=== PATIENT | female | born 1950 | race Caucasian/White ===

== ENCOUNTER → 2018-09-09 13:35 | Outpatient (CLI) | payer MEDICARE, OTHER, SELFPAY ==
--- NOTE | 2018-09-09 13:45 | RAD_ITS ---
STUDY: X-RAY - CERVICAL SPINE REASON FOR EXAM: Female, 68 years old. Neck pain and headache TECHNIQUE: 3 view(s) of the cervical spine were obtained. COMPARISON: None FINDINGS: Normal anterior atlantoaxial articulation. Normal odontoid process. There is straightening of the normal cervical lordosis. Normal vertebral bodies and endplates. There is multi-level degenerative disc disease with multilevel disc space narrowing. The soft tissue structures are unremarkable. RAD/Cerv Spine 2 or 3 Views IMPRESSION: Multilevel degenerative changes, no acute findings Electronically Signed: Higinio Prince MD at 11:57 EST , Service support ,
== END ==
PROVIDERS: Family Provider Internal Medicine; PCP Internal Medicine; Referring Provider Internal Medicine; Visit Provider Internal Medicine
DX: M54.2 Cervicalgia (principal)
CPT/HCPCS: 72040

== ENCOUNTER → 2018-09-16 11:00 | Outpatient (CLI) | payer MEDICARE, OTHER, SELFPAY ==
--- NOTE | 2018-09-16 11:10 | MRI_ITS ---
STUDY: MRA OF THE HEAD WITHOUT CONTRAST REASON FOR EXAM: Female, 68 years old. Worsening headaches for 3 weeks TECHNIQUE: 3-D [id number] (TOF) imaging was performed with MIPs. The study was performed unenhanced. COMPARISON: None. FINDINGS: Normal bilateral petrous carotid arteries. Normal right cavernous carotid artery with a normal supraclinoid bifurcation. Normal left cavernous carotid artery with a normal supraclinoid bifurcation. Normal right A1 segments of the anterior cerebral artery. Normal left A1 segments of the anterior cerebral artery. Normal intact anterior communicating artery (ACOM). Normal bilateral A2 segments of the anterior cerebral arteries. Normal right M1 and M2 segments of the middle cerebral arteries, with a normal M1 bifurcation. Normal left M1 and M2 segments of the middle cerebral arteries, with a normal M1 bifurcation. Normal right posterior communicating artery (PCOM). Normal left posterior communicating artery (PCOM). Normal bilateral vertebral arteries. Normal basilar artery with a normal basilar bifurcation. The visualized bilateral superior cerebellar (SCA) arteries are normal. Normal bilateral P1, P2 and visualized P3 segments of the posterior cerebral arteries. There is no demonstrated aneurysm of the [place] of [place]. There is no major vessel occlusion or hemodynamically significant stenosis. There is no demonstrated abnormality of the visualized brain. MRI/MRA Head ONLY without Contrast IMPRESSION: Normal MRA of the head Electronically Signed: Dennis Gardner MD at 12:51 EST Tel , Service support ,
--- NOTE | 2018-09-16 11:10 | MRI_ITS ---
STUDY: MRI BRAIN WITHOUT CONTRAST REASON FOR EXAM: Female, 68 years old. Worsening headaches for 3 weeks TECHNIQUE: Standardized multiplanar fat and water weighted pulse sequences were obtained. COMPARISON: None. FINDINGS: Normal size of the ventricles and extra-axial spaces for the patient's age. There are a limited number of small white matter hyperintensities, distributed throughout the deep white matter tracts of the cerebral hemispheres, consistent with mild chronic white matter ischemic changes. Normal bilateral basal ganglia. Normal thalami. There is no extra-axial fluid accumulation. Normal flow voids within the major intracranial circulation suggesting patency by spin echo criteria. Normal sella turcica, pituitary gland, infundibular stalk, optic chiasm and hypothalamus. Normal tectal plate and pineal gland. Normal midbrain, michael and medulla. Normal cerebellum. Normal basal cisterns. Normal bilateral temporal bones. Normal bilateral internal auditory canals. There are bilateral ocular lens implants with otherwise normal intraorbital contents. Normal visualized paranasal sinuses. Normal calvarium and skull base. Normal visualized soft tissue structures. Normal visualized upper cervical spine. MRI/Brain without Contrast IMPRESSION: No evidence of acute infarct or hemorrhage. Mild microangiopathic white matter disease. Electronically Signed: Dennis Gardner MD at 12:48 EST Tel , Service support ,
--- OUTSIDE RECORDS SUMMARY | 2018-11-21 02:13 | XMS RPT_ITS | Continuity of Care Document ---
:1950 Author Organization [facility] Address [address] [place] [address] Phone Care Team Providers Name Role Phone Windy Mayorga DO Unavailable Dr. John Paul Marion Unavailable CLAYTON Hough Unavailable Unavailable THALIA Pereira Unavailable Unavailable Jennifer Coronado Unavailable Unavailable Christi Hernández Unavailable Unavailable Melonie Kline Unavailable Unavailable Gravius, Leida Unavailable Unavailable Chucky GROVE, Liat Unavailable Unavailable Unavailable Problems Name Dates Details Abnormal chest x-ray (R93.89, 793.2) Status: Active Acquired hypothyroidism (E03.9, 244.9) Status: Active ACUTE PHARYNGITIS (462.) (J02.9, 462) Status: Active Annual Medicare Phyiscal WITHOUT abnormal findings (Renamed from Encounter for general adult medical examination without abnormal findings) (Z00.00, V70.9) Status: Active Anxiety (F41.9, 300.00) Comments: stable Status: Active BMI 30.0-30.9,adult (Z68.30, V85.30) Status: Active BMI 30.0-30.9,adult (Z68.30, V85.30) Status: Active BMI 31.0-31.9,adult (Z68.31, V85.31) Status: Active Breast cancer screening (Z12.39, V76.10) Status: Active BRONCHITIS, NOT SPECIFIED ACUTE OR CHRONIC (490.) (J40, 490) Status: Active Cervical pain (neck) (M54.2, 723.1) Status: Active Chronic pain of both knees (M25.561, 719.46) Status: Active Conjunctivitis (H10.9, 372.30) Status: Active Cough (R05, 786.2) Comments: sinus drainage use mucinex Status: Active Cough (R05, 786.2) 26-May-2011 Status: Active Deliveries (Parity) Comments: 3 Status: Active Diarrhea (R19.7, 787.91) Comments: BRAT diet Status: Active Dysuria (R30.0, 788.1) Status: Active Encounter for annual general medical examination with abnormal findings in adult (Z00.01, V70.0) Status: Active Encounter for Medicare annual wellness exam (Z00.00, V70.0) Status: Active Encounter for Medicare annual wellness exam (Z00.00, V70.0) Status: Active Encounter for screening for malignant neoplasm of cervix (Z12.4, V76.2) Status: Active Encounter for screening for malignant neoplasm of colon (Renamed from Special screening for malignant neoplasms, colon) (Z12.11, V76.51) Comments: last scope 2012ordered cologard 2016 Status: Active Encounter for screening mammogram for breast cancer (Renamed from Encounter for screening mammogram for malignant neoplasm of breast) (Z12.31, V76.12) Status: Active Essential hypertension (I10, 401.9) Status: Active Flu-like symptoms (R68.89, 780.99) Status: Active Hallux valgus, acquired (735.0) Status: Active Hammer toe of second toe of left foot (M20.42, 735.4) Status: Active Headache, worsening (R51, 784.0) Comments: occipital area Status: Active History of dysuria (Z87.898, V13.00) Status: Active History of sarcoidosis (Z86.2, V12.29) Comments: sees david once a yr -- has residual minor cough Status: Active History of UTI (Z87.440, V13.02) Comments: i give her rx to hold onto for travel -- she has h/o of getting them assoc with travel Status: Active Hypotension (I95.9, 458.9) Comments: will evaluate with lower dose atenolol and pt to bring BP pulse [facility] dropped BP and felt dizzi found to have low BP with wellness trainer, did not eat Status: Active Knee pain (M25.569, 719.46) Comments: R knee, does not want steroid, consider return to [place] Status: Active Muscle spasm (M62.838, 728.85) Status: Active Need for prophylactic vaccination and inoculation against influenza (Z23, V04.81) Status: Active Nonsmoker (Z78.9, V49.89) Status: Active Osteoarthrosis, not specified whether generalized/localized, lower leg (M17.9, 715.96) Comments: started tumeric and elev legs slightly in bed at nite and made a big difference Status: Active Osteopenia of the elderly (M85.80, 733.90) Status: Active Other and unspecified hyperlipidemia (E78.5, 272.4) Status: Active Other intervertebral disc degeneration, lumbar region (M51.36, 722.52) Comments: chronic stable-continue present regimen Status: Active Postmenopausal (Renamed from Postmenopausal status) (Z78.0, V49.81) Status: Active postmenopausal without estogen Status: Active Pregnancies () Comments: 3 Status: Active SARCOIDOSIS (135.) (D86.9, 135) Comments: she has followup with [facility] Status: Active screening Status: Active Sinusitis, acute (J01.90, 461.9) Status: Active Unspecified Diagnosis Status: Active URI (upper respiratory infection) (J06.9, 465.9) Status: Active URINARY TRACT INFECTION, SITE NOT SPECIFIED (N39.0, 599.0) Status: Active UTI (urinary tract infection) (N39.0, 599.0) Status: Active UTI (urinary tract infection), bacterial (N39.0, 599.0) Status: Active Vitamin D deficiency, unspecified (E55.9, 268.9) Status: Active Well woman exam (Z00.00, V70.0) Status: Active Wheezing (R06.2, 786.07) Status: Active Medications Name Dates Details Advil 200 MG Oral Capsule 1 (one) Capsule Capsule q6hrs for 0 days Quantity: 30 {Capsule} Refills: 0 Ordered:09-Sep-2018 Renetta Hough LPN Start : 17-Aug-2018 Active Atenolol 25 MG Oral Tablet 1/2 (one half) Tablet QD for 90 days Quantity: 90 {Tablet} Refills: 3 Ordered:22-Mar-2018 Sharyn Mayorga DO, DO, Kathleen Start : 22-Mar-2018 Active Comments:d/c the metoprolol and fill anteolol instead Caltrate 600 + D 600-200 MG-IU Oral Tablet 2 qd (600-125 MG-IU) Active Ibandronate Sodium 150 MG Oral Tablet 1 (one) Tablet Tablet qmonth for 0 days Quantity: 3 {Tablet} Refills: 3 Ordered:28-Dec-2017 Christi Hernández Start : 28-Dec-2017 Active Ibandronate Sodium 150 MG Oral Tablet 1 (one) Tablet Tablet qmonth for 0 days Quantity: 3 {Tablet} Refills: 3 Ordered:28-Dec-2017 Christi Hernández Start : 28-Dec-2017 Active Macrobid 100 MG Oral Capsule 1 Capsule BID for 0 days Quantity: 20 {Capsule} Refills: 0 Ordered:14-Jul-2018 Sharyn Mayorga DO, DO, Kathleen Start : 14-Jul-2018 Active Multi-Day Oral Tablet 1 qd Active PreserVision AREDS 2 Oral Capsule 1 qd Active Synthroid 25 MCG Oral Tablet 1 (one) Tablet daily except 2tabs on thursday for 90 days Quantity: 102 {Tablet} Refills: 3 Ordered:28-Dec-2017 Sharyn Mayorga DO, DO, Kathleen Start : 28-Dec-2017 Active TiZANidine HCl 4 MG Oral Tablet 1 (one) Tablet bid for 0 days Quantity: 20 {Tablet} Refills: 0 Ordered:09-Sep-2018 Sharyn Mayorga DO, DO, Kathleen Start : 09-Sep-2018 Active Vitamin C 100 MG Oral Tablet 2 qd (100 MG) Active VITAMIN D3, 1000UNIT (Oral Capsule) 2 (two) Capsule qd for 0 days Quantity: 60 {Capsule} Refills: 0 Ordered:17-Oct-2015 Raya Viera DO Start : 17-Oct-2015 Active ALIGN, 4MG (Oral Capsule) 1 cap qd (4 MG) Inactive Kristina Allergy 180 MG Oral Tablet 1 (one) Tablet Tablet daily for 90 days Quantity: 90 {Tablet} Refills: 3 Ordered:29-Jun-2017 Renetta Hough LPN Start : 19-Jan-2016 End : 29-Jun-2017 Inactive KRISTINA-D 12 HOUR, 60-120MG (Oral Tablet Extended Release 12 Hour) 1 Tablet ER 12HR every 12 hrs for 0 days Quantity: 20 {Tablet_ER_12HR} Refills: 0 Ordered:05-Jun-2009 Jennifer Coronado Start : 05-Jun-2009 End : 25-Jun-2009 Inactive Comments:take one in the morning KRISTINA-D 12 HOUR, 60-120MG (Oral Tablet Extended Release 12 Hour) 1 Tablet ER 12HR q12hrs for 0 days Quantity: 30 {Tablet_ER_12HR} Refills: 0 Ordered:17-Feb-2011 Jennifer Coronado Start : 31-Jul-2010 End : 17-Feb-2011 Inactive BACTRIM DS, 800-160MG (Oral Tablet) 1 (one) Tablet bid for 10 days Quantity: 20 {Tablet} Refills: 0 Ordered:04-Jun-2015 Samira Mcghee Start : 04-Jun-2015 End : 14-Jun-2015 Inactive Biaxin 500 MG Oral Tablet 2 (two) Tablet Tablet daily for 10 days Quantity: 20 {Tablet} Refills: 0 Ordered:10-Aug-2018 Christi Hernández Start : 10-Aug-2018 End : 20-Aug-2018 Inactive BIAXIN XL PAC, 500MG (Oral Tablet Extended Release 24 Hour) 2 (two) Tablet ER 24HR daily for 10 days Quantity: 20 {Tablet_ER_24HR} Refills: 0 Ordered:22-Apr-2013 Viky Robertson MD Start : 22-Apr-2013 End : 02-May-2013 Inactive Comments:voidafter 30 days Bleph-10 10 % Ophthalmic Solution 1-2 Metric Drop q2-3h for 7 days Quantity: 1 {Bottle} Refills: 0 Ordered:30-Apr-2018 Donna Locke CNP Start : 30-Apr-2018 End : 07-May-2018 Inactive Cheratussin AC 100-10 MG/5ML Oral Syrup 1-2 Teaspoon(s) qhs prn for 0 days Quantity: 6 {Ounce} Refills: 0 Ordered:07-May-2016 Samira Mcghee Start : 26-Mar-2016 End : 07-May-2016 Inactive Cipro 500 MG Oral Tablet 1 (one) Tablet bid for 0 days Quantity: 20 {Tablet} Refills: 0 Ordered:12-May-2017 THALIA Pereira Start : 08-Jan-2017 End : 12-May-2017 Inactive Cyclobenzaprine HCl 10 MG Oral Tablet 1 (one) Tablet 1 tab qd prn for 0 days Quantity: 10 {Tablet} Refills: 0 Ordered:08-Jan-2017 THALIA Peerira Start : 22-Aug-2016 End : 08-Jan-2017 Inactive DEBROX, 6.5% (Otic Solution) 1 for 0 days Refills: 0 Ordered:07-Jun-2009 Jennifer Coronado Start : 07-Jun-2009 End : 25-Jun-2009 Inactive DURICEF, 1GM (Oral Tablet) 1 1/2 (one and a half) Tablet bid for 7 days Quantity: 14 {Tablet} Refills: 0 Ordered:13-Nov-2008 Yandytaylor MAINEDonna Start : 13-Nov-2008 End : 20-Nov-2008 Inactive LEVAQUIN, 500MG (Oral Tablet) 1 Tablet daily for 10 days Quantity: 10 {Tablet} Refills: 0 Ordered:08-Mar-2015 Sharyn Maoyrga DO, DO, Kathleen Start : 08-Mar-2015 End : 18-Mar-2015 Inactive Medrol 4 MG Oral Tablet Therapy Pack 1 (one) Tab Ther Pack uad for 0 days Quantity: 1 {Package} Refills: 0 Ordered:08-Jan-2017 THALIA Pereira Start : 09-Jun-2016 End : 08-Jan-2017 Inactive Metoprolol Succinate ER 25 MG Oral Tablet Extended Release 24 Hour 1/2 Tablet daily for 0 days Quantity: 30 {Tablet} Refills: 3 Ordered:18-Mar-2018 Latricia Leblanc LPN Start : 08-Mar-2018 End : 18-Mar-2018 Inactive Metoprolol Succinate ER 25 MG Oral Tablet Extended Release 24 Hour 1/2 Tablet daily for 0 days Quantity: 90 {Tablet} Refills: 0 Ordered:18-Mar-2018 Latricia Leblanc LPN Start : 08-Mar-2018 End : 18-Mar-2018 Inactive Montelukast Sodium 10 MG Oral Tablet 1 (one) Tablet qhs for 90 days Quantity: 90 {Tablet} Refills: 1 Ordered:29-Jun-2017 Renetta Hough LPN Start : 26-Mar-2016 End : 29-Jun-2017 Inactive NASACORT ALLERGY 24HR, 55MCG/ACT (Nasal Aerosol) 2 (two) Puff Puff daily for 0 days Quantity: 1 {Bottle} Refills: 0 Ordered:17-Oct-2015 Samira Mcghee Start : 09-Apr-2015 End : 17-Oct-2015 Inactive NASACORT AQ, 55MCG/ACT (Nasal Aerosol Solution) 1 Aerosol Soln 2puffs once daily for 0 days Quantity: 1 {Aerosol_Soln} Refills: 0 Ordered:24-Dec-2009 Tuyet Camejo Start : 13-Aug-2009 Inactive NASONEX, 50MCG/ACT (Nasal Suspension) 2 (two) Suspension qd for 0 days Quantity: 1 {Suspension} Refills: 3 Ordered:25-Dec-2008 Tuyet Camejo Start : 25-Dec-2008 End : 05-Jun-2009 Inactive NEXIUM, 40MG (Oral Capsule Delayed Release) 1 (one) Capsule DR qd for 0 days Refills: 0 Ordered:15-Jul-2010 Antoinette Ashby LPN Start : 25-Jun-2009 End : 15-Jul-2010 Inactive Nitrofurantoin Monohyd Macro 100 MG Oral Capsule 1 (one) Capsule bid for 0 days Quantity: 20 {Capsule} Refills: 0 Ordered:28-Dec-2017 Renetta Hough LPN Start : 17-Sep-2017 End : 28-Dec-2017 Inactive PREDNISONE, 20MG (Oral Tablet) 1 (one) Tablet bid for 2 days then qd for 4 days for 0 days Quantity: 8 {Tablet} Refills: 0 Ordered:02-Nov-2013 Renetta Hough LPN Start : 26-Oct-2013 End : 02-Nov-2013 Inactive Comments:take with food ProAir HFA 108 (90 Base) MCG/ACT Inhalation Aerosol Solution 2 (two) Puff tid for 0 days Quantity: 1 {Inhaler} Refills: 2 Ordered:07-May-2016 Samira Mcghee Start : 26-Mar-2016 End : 07-May-2016 Inactive PROVENTIL HFA, 108 (90 Base)MCG/ACT (Inhalation Aerosol Solution) 2 puffs Aerosol Soln qid for 0 days Quantity: 1 {Aerosol_Soln} Refills: 1 Ordered:17-Feb-2011 Jennifer Coronado Start : 14-Aug-2010 End : 17-Feb-2011 Inactive Sertraline HCl 25 MG Oral Tablet 1 (one) Tablet daily for 90 days Quantity: 90 {Tablet} Refills: 1 Ordered:29-Jun-2017 Renetta Hough LPN Start : 31-Dec-2015 End : 29-Jun-2017 Inactive Tamiflu 75 MG Oral Capsule 1 (one) Capsule Capsule bid for 5 days Quantity: 10 {Capsule} Refills: 0 Ordered:14-Sep-2017 Renetta Hough LPN Start : 14-Sep-2017 End : 19-Sep-2017 Inactive Zithromax Z-Eyad 250 MG Oral Tablet tad Tablet TAD for 0 days Quantity: 1 {Package} Refills: 0 Ordered:07-May-2016 Samira Mcghee Start : 26-Mar-2016 End : 07-May-2016 Inactive ZOLOFT, 25MG (Oral Tablet) 1 Tablet qd for 0 days Quantity: 90 {Tablet} Refills: 3 Ordered:15-Jul-2010 Antoinette Ashby LPN Start : 25-Jun-2009 End : 15-Jul-2010 Inactive Comments:generic ALEVE, 220MG (Oral Tablet) 2 (two) Tablet Twice daily for 0 days Refills: 0 Ordered:20-Jun-2008 Tamanna Acharya Start : 20-Jun-2008 End : 13-Nov-2008 Discontinued ALIGN, 4MG (Oral Capsule) 1 (one) Capsule Capsule daily for 0 days Quantity: 30 {Capsule} Refills: 0 Ordered:31-Dec-2015 Jennifer Coronado Start : 12-Nov-2015 End : 31-Dec-2015 Discontinued KRISTINA ALLERGY, 60MG (Oral Tablet) 1 (one) Tablet Tablet bid for 0 days Quantity: 30 {QS} Refills: 3 Ordered:12-Nov-2015 Lucretia Murray LPN Start : 09-Apr-2015 End : 12-Nov-2015 Discontinued ATIVAN, 0.5MG (Oral Tablet) 1 (one) Tablet Daily prn for 0 days Quantity: 30 {Tablet} Refills: 0 Ordered:04-Jun-2007 Tamanna Acharya Start : 04-Jun-2007 End : 13-Nov-2008 Discontinued BIAXIN XL, 500MG (Oral Tablet Extended Release 24 Hour) 2 (two) Tablet ER 24HR qd for 0 days Quantity: 20 {Tablet_ER_24HR} Refills: 0 Ordered:09-Apr-2015 Lucretia Murray LPN Start : 08-Mar-2015 End : 09-Apr-2015 Discontinued Ciprofloxacin HCl 0.3 % Ophthalmic Solution 1 (one) Solution qid for 0 days Quantity: 1 {Bottle} Refills: 0 Ordered:26-Mar-2016 Lucretia Murray LPN Start : 18-Feb-2016 End : 26-Mar-2016 Discontinued CULTURELLE, 10B CELL (Oral Capsule) 1 Capsule bid for 0 days Quantity: 60 {Capsule} Refills: 0 Ordered:05-Apr-2012 Jennifer Coronado Start : 05-Apr-2012 End : 05-Apr-2012 Discontinued PEPCID, 20MG (Oral Tablet) 1 Tablet daily for 0 days Quantity: 30 {Tablet} Refills: 0 Ordered:05-Apr-2012 Jennifer Coronado Start : 05-Apr-2012 End : 05-Apr-2012 Discontinued SERTRALINE HCL, 25MG (Oral Tablet) 1 qd for 0 days Refills: 0 Ordered:27-Sep-2007 Jennifer Coronado End : 27-Sep-2007 Discontinued Allergies and Adverse Reactions Name Dates Details Levaquin *FLUOROQUINOLONES* (Allergy) Status: Active Comments: tendonitis Penicillins (Allergy) Status: Active Past Medical History Name Dates Details Abdominal pain, acute, right upper quadrant (R10.11, 789.01) Comments: improve with gas x and pepcid, dilated common bile duct check Hida Status: Inactive as of 09-Sep-2012 Abnormal mammogram (R92.8, 793.80) Status: Inactive as of 14-Jul-2018 Acute cystitis without hematuria (N30.00, 595.0) Status: Inactive as of 14-Jul-2018 Acute sinusitis (J01.90, 461.9) Status: Inactive as of 24-Dec-2009 Allergic Rhinitis (J30.9, 477.9) Comments: chronic stable-continue present regimen Status: Inactive as of 14-Jul-2018 Allergic rhinitis due to other allergen (J30.89, 477.8) Comments: try antihistamine /singulair if not improved 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 Status: Inactive as of 14-Jul-2018 Anemia, unspecified (D64.9, 285.9) Status: Resolved as of 17-Apr-2010 BMI 29.0-29.9,adult (Z68.29, V85.25) Status: Inactive as of 14-Jul-2018 Body mass index 32.0-32.9, adult (Z68.32, V85.32) Status: Inactive as of 14-Jul-2018 burning tongue sx- gave samples nexium - if not better- she is seeing scottie- ask his opinion Status: Resolved as of 17-Apr-2010 Cellulitis (L03.90, 682.9) Status: Resolved as of 28-Jan-2013 Cerumen impaction (H61.20, 380.4) Status: Inactive as of 24-Dec-2009 Change in nail appearance (R29.898, 729.89) Comments: etilogy>?-- recommend seeking derm Status: Inactive as of 14-Jul-2018 Coccyalgia (M53.3, 724.79) Status: Inactive as of 07-May-2016 Cough (R05, 786.2) Status: Inactive as of 07-May-2016 dilated common bile duct Status: Inactive as of 22-Apr-2013 Diverticulitis of colon (without mention of hemorrhage) (562.11) Status: Inactive as of 22-Apr-2013 Epigastric pain (R10.13, 789.06) Status: Inactive as of 14-Feb-2009 Erythema nodosum (L52, 695.2) Status: Resolved as of 27-Oct-2011 Eustachian tube dysfunction (H69.80, 381.81) Status: Inactive as of 24-Dec-2009 Eye pain (H57.10, 379.91) Status: Inactive as of 07-May-2016 Fatigue (R53.83, 780.79) Status: Resolved as of 28-Jan-2013 Fecal occult blood test positive (R19.5, 792.1) Status: Inactive as of 14-Jul-2018 Flu-like symptoms (R68.89, 780.99) Status: Resolved as of 28-Dec-2017 Hair loss (L65.9, 704.00) Status: Inactive as of 14-Jul-2018 Hearing loss, unspecified laterality (389.9) Status: Inactive as of 24-Dec-2009 Hematuria (R31.9, 599.70) Status: Inactive as of 14-Jul-2018 Hypercholesteremia (E78.00, 272.0) Status: Resolved as of 28-Dec-2017 Hyponatremia (E87.1, 276.1) Status: Resolved as of 25-Jun-2009 meniscal tear and chondromalacia patella Status: Inactive as of 14-Feb-2009 minor renal insuff- she needs to push more fluids- get followup bmp in 8-12 weeks Status: Inactive as of 14-Feb-2009 Need for prophylactic vaccination and inoculation against influenza (Z23, V04.81) Status: Inactive as of 14-Feb-2009 Neoplasm of uncertain behavior of skin (D48.5, 238.2) Comments: Ivan hominus Status: Inactive as of 14-Feb-2009 Pain in unspecified hip (M25.559, 719.45) Status: Inactive as of 09-Sep-2012 Palpitations (R00.2, 785.1) Comments: chronic stable-continue present regimen Status: Inactive as of 24-Dec-2009 PANCREATITIS, NOS (577.0) Comments: resolved Status: Inactive as of 20-Feb-2009 postmenopausal without estrogen Status: Inactive as of 22-Apr-2013 Pre-operative examination (Z01.818, V72.84) Status: Inactive as of 17-Apr-2010 Rash (R21, 782.1) Status: Resolved as of 28-Jan-2013 recurrent UTI Status: Inactive as of 22-Apr-2013 Sciatica without lumbago, left (M54.32, 724.3) Comments: talk about sitting in car how to raise u0, back extension exercise, hamstring stretches. medrol dose eyad then go to advil tid. will be traveling. if not better wityh snservative things then send PT Status: Inactive as of 14-Jul-2018 screen Status: Inactive as of 24-Dec-2009 screening Status: Inactive as of 11-Apr-2011 screening Status: Inactive as of 22-Apr-2013 Sebaceous Cyst (L72.3, 706.2) Status: Resolved as of 28-Jan-2013 Shoulder pain (M25.519, 719.41) Status: Inactive as of 22-Apr-2013 Thoracic or lumbosacral neuritis or radiculitis, unspecified (724.4) Comments: minor - give herextension exercises to do Status: Inactive as of 24-Dec-2009 thumb pain Status: Resolved as of 22-May-2008 Unspecified Diagnosis Status: Inactive as of 27-Oct-2011 Urgency of urination (R39.15, 788.63) Status: Inactive as of 23-Feb-2017 UTI (599.0) Comments: Recurrent Status: Resolved UTI symptoms (R39.9, 788.99) Status: Inactive as of 29-Jun-2017 Visit for suture removal (Z48.02, V58.32) Status: Resolved as of 28-Jan-2013 Wheezing (R06.2, 786.07) Status: Resolved as of 17-Feb-2011 Procedures Procedure Dates Details Arthroscopy of Knee Completed Comments: rt knee 11-12-11 Date Value Details 09-Sep-2018 Cerv Spine 2 or 3 Views Result: Comments: See Note; NOTES: [facility] Imaging Services [address] [place] [id number] Cerv Spine 2 or 3 Views MR#: [id number] Acct: [id number] Name: JULIET SHORT Rep #: [id number] : 1950 F 68 From: Donnie Prince MD PCP: Windy Mayorga DO Status: REG CLI Study: Cerv Spine 2 or 3 Views Date of Exam: 09/09/18 Exam# [id number] Ordering Dr: Windy Mayorga DO STUDY: X-R AY - CERVICAL SPINE REASON FOR EXAM: Female, 68 years old. Neck pain and headache TECHNIQUE: 3 view(s) of the cervical spine were obtained. COMPARISON: None FINDI NGS: Normal anterior atlantoaxial articulation. Normal odontoid process. There is straightening of the normal cervical lordosis. Normal vertebral bodies and endplates. There is multi-level degenerative disc disease with multilevel disc space narrowing. The soft tissue structures are unremarkable. RAD/Cerv Spine 2 or 3 Views IMPRESSION: Multile jorge degenerative changes, no acute findings Electronically Signed: Higinio Prince MD at 11:57 EST , Service support , CC: Windy Mayorga DO House Parent: Signed 10-Oct-2017 Urgent Care Visit Report Result: Comments: See Note; NOTES: [facility] [address] [place] [address] OFFICE VISIT Date of Service: 10/10/17 MR#: [id number] Acct: [id number] Name: JULIET SHORT Rep #: [id number] : 1950 Provider: Cuba GONSALVES Age/Sex: 67/F Location: [facility] Status: Signed Intake Vital Signs10/10/17 Height 5 ft 4 in 10/10/17 Weight: 178 lb 10/10/17 Body Mass Index (BMI) 30.5 10/10/17 Blood Pressure 126/82 Intake Visit Reasons: Sinus infection Allergies levothyroxine Allergy (Severe, Verified 10/10/17 10:44) joint issues Penicillins Allergy (Severe, Verified 10/10/17 10:42) unknown Medications atenolol 25 mg tablet 25 mg PO ONCE 10/10/17 [History Confirmed 10/10/17] azithromycin 250 mg tablet 250 mg PO QDAY 5 Days #5 tab 10/10/17 [Rx Confirmed 10/10/17] naproxen 500 mg tablet PO 15 Days #30 10/10/17 [History Confirmed 10/10/17] nitrofurantoin monohydrate/macrocrystals 100 mg capsule PO 10 Days #20 10/10/17 [History Confirmed 10/10/17] oseltamivir 75 mg capsule PO 5 Days #10 10/10/17 [History Confirmed 10/10/17] PFSH Medical History Knee pain (Acute) Thyroid disease (Acute) Hypertension (Chronic) Social Histo ry Smoking Status: Never smoker alcohol intake: never HPI HPI Details: JULIET SHORT, is a 67 F who presents to the office today for sinus pain and pressure for the past 2 weeks. Patient also admit s to having a cough which has been dry and nonproductive. She denies shortness of breath, difficulty breathing or hemoptysis. She does state that the sinus pain and pressure has caused some headache whi ch is relieved with Tylenol. No fever, chills, sweats. No nausea, vomiting, diarrhea. No other associated symptoms or alleviating/aggravating factors. ROS Const Constitutional: Positive for headache(s ); no fever(s), chills, night sweats or abnormal sleep pattern ENT ENT: Positive for headache(s), nasal congestion, sinus pressure, sinus pain and nasal discharge; no ear pain Resp Respiratory: No cough or shortness of breath Cardio Cardiology: No shortness of breath, irregular heart rhythm or fast heart rate Neuro Neurology: Positive for headache(s); no confusion Psych Psychiatric: No abnormal sleep pattern, No confusion Exam Const General: cooperative HENMT Head: normal to inspection Ears: hearing grossly normal bilaterally, TM's normal bilaterally, EAC's normal Nose: nasal discharge purulent Fa ce and sinus: sinus tenderness frontal and maxillary Mouth: oral mucosae normal Throat: abnormal tonsil bilaterally, postnasal drainage Resp Effort AND Inspection: normal respiratory effort Auscultation : Bilateral: Clear to Auscultation Cardio Rate: regular rate Rhythm: regular rhythm Neuro General: alert, CN's II-XI intact bilaterally Psych Appearance: grossly normal Mental Status: mental status luis sly normal Assessment AND Plan 1. Acute non-recurrent maxillary sinusitis J01.00 Status Acute Plan Encouraged to get plenty of rest, drink lots of clear liquids, and use Tylenol or Ibuprofen (unless c ontraindicated) for fever and comfort. Patient also educated on other symptomatic management techniques. To be seen in 7-10 days if no improvement; sooner if worsening of symptoms. Patient advised of po tential red flags and when appropriate report to the ED. Patient verbalized understanding of all the above. This note was generated with GIVVERation software. It may contain incorrect words, spell ing, and punctuation that were not noted in checking the note before signing. Plan Detail Other Medications New: azithromycin Take 2 tabs once on day one. Take one tablet o250 mg PO QDAY 5 days J32.9 nce daily for the next 4 days. Coding Level of Care Code Off vis,new,level 3 Diagnoses Acute non-recurrent maxillary sinusitis J01.00 Sinusitis location: maxillary Chronicity: acute Recurrence: non-r ecurrent 10/10/17 1135 <Electronically signed by Cuba GONSALVES> Date Cuba GONSALVES Cosigner Signature: Date (if applicable) CC: 07-Sep-2017 Breast Limited Unilateral Result: Comments: See Note; NOTES: [facility] Imaging Services [address] [place] [address] Breast Limited Unilateral MR#: [id number] Acct: [id number] Name: JULIET SHORT Rep #: [id number] : 1950 F 67 From: Cruzito Khan MD PCP: Windy Mayorga DO Status: REG CLI Study: Breast Limited Unilateral Date of Exam: 09/07/17 Exam# [id number] Ordering Dr: Windy Mayorga DO STUDY: ULTRASOUND BREAST - LEFT REASON FOR EXAM: Female, 67 years old. Abnormal screening mammogram. TECHNIQUE: Axial and longitudinal images of the LEFT breast were performed with a high resolution ultrasound transducer. COMPARISON: Comparison is made with prior mammogram dated September 03, 2017. FINDINGS: LEFT Breast: The mammographic abnormality corresponds to a 4 mm x 4 mm x 3 mm cyst at the 3:00 position breast at 2 cm from nipple. A 4 mm x 5 mm x 2 mm cyst is also seen at the 7:00 position of breast at 4 cm from nipple. There is also evidence of a 0.9 c m x 1.2 cm x 0.5 cm lymph node at the 1:00 position of the breast breast at 8 cm from the nipple. US/Breast Limited Unilateral IMPRESSION: The ma mmographic abnormalities correspond to 2 small cysts and one benign appearing lymph node. ASSESSMENT CATEGORY: BIRADS Category 2: Benign. A letter regarding these re sults will be sent to the patient by the facility within 30 days. Electronically Signed: Cruzito Khan MD at 15:14 EST Tel [phone], Service support , CC: Windy Mayorga DO House Parent: Signed 03-Sep-2017 Dexa Bone Density Study (HP) Result: Comments: See Note; NOTES: [facility] Imaging Services [address] [place] [address] Dexa Bone Density Study (HP) MR#: [id number] Acct: [id number] Name: JULIET SHORT Rep #: [id number] : 1950 F 67 From: Cruzito Khan MD PCP: Windy Mayorga DO Status: [facility] Study: Dexa Bone Density Study (HP) Date of Exam: 09/08/17 Exam# [id number] Ordering Dr: Delfina Mayorga DO STUDY: DUAL ENERGY X-RAY ABSORPTIOMETRY / DXA REASON FOR EXAM: Female, 67 years old. Loss of height. The patient is postmenopausal. TECHNIQUE: Bone Mineral Density (BMD) measurements of lumbar spine and bilateral hips were obtained. COMPARISON: Comparison is made with prior study dated February 26, 2011. FINDINGS: Lumbar Spine (L1-L4): g/cm2 (1.320) / T-sco re (1.2) / Z-score (2.9) Findings are suggestive of normal bone density with a low fracture risk. Left Femur Total: g/cm2 (0.826) / T-score (-1.4) / Z-score (0.0) Left Femoral Neck: g/cm2 (0.837) / T-s core (-1.4) / Z-score (0.2) Right Femur Total: g/cm2 (0.878) / T-score (-1.0) / Z-score (0.4) Right Femoral Neck: g/cm2 (0.8 to see) / T-score (-1.5) / Z- score (0.1) The T-Scores on the most recent denise or examination were: Lumbar Spine (L1-L4): There has been improvement of bone density since the previous examination. Left Femur Total: which represents a worsening of 13.6%. Right Femur Total: which represents a worsening of 12.1%. HPBD/Dexa Bone Density Study (HP) IMPRESSION: The patient is considered osteopenic as outlined below according t o World Angel Organization (WHO) criteria with a moderate fracture risk. There has been worsening of bone density since the previous examination. Reference Informat ion: The T-score is the number of standard deviations above or below the standard which is normal for young adults at their peak bone mineral density. The World Health Organization (WHO) interprets the T-scores as follows: Above -1 Normal bone density Between -1 and -2.5 Osteopenia Equal to / or below -2.5 Osteoporosis As a practical clinical guideline, osteopenia may be graded as follows: Mild -1 t hrough -1.5 Moderate -1.6 through -2.0 Severe -2.1 through -2.4 The Z-score is the number of standard deviations above or below age-matched controls. A Z- score of less than -1.5 would be considered abn ormal. References: 1. NIH Osteoporosis and Related Bone Diseases http://www.osteo.org 2. International Society for Clinical Densitometry http://www.iscd.org 3. National Osteoporosis Foundation http://w ww.nof.org Electronically Signed: Cruzito Khan MD at 8:30 EST Tel [phone], Service support , CC: Windy Mayorga DO House Parent: Signed 03-Sep-2017 SCREENING MAMM (CAD), BILAT Result: Comments: See Note; NOTES: [facility] Imaging Services [address] [place] [address] SCREENING MAMM (CAD), BILAT MR#: [id number] Acct: [id number] Name: JULIET SHORT Rep #: [id number] : 1950 F 67 From: Cruzito Khan MD PCP: Windy Mayorga DO Status: REG CLI Study: SCREENING MAMM (CAD), BILAT Date of Exam: 09/03/17 Exam# [id number] Ordering Dr: Windy Mayorga DO MAMMOGRAPHY - BILATERAL SCREENING REASON FOR EXAM: Female, 67 years old. Routine annual screening examination. PERTINENT HISTORY: Non-contributory. TECHNIQUE: Digital bilateral breast jazmine (3D mammographic acquisition) in the CC and MLO projections. 2-D mediolateral oblique (MLO) and craniocaudad (CC) views of both breasts were obtained. CAD: Full Field Digital Mammography with Computer Added Detection was performed. COMPARISON: Comparison is made with prior study dated June 26, 2016 and April 27, 2015. FINDINGS: Breast Composition: There are scatte red areas of fibroglandular density. There are no dominant masses or suspicious calcifications. Stable 1.2 cm well-defined nodule in the upper outer quadrant of the left breast. This is unchanged over multiple prior studies. There is also evidence of a stable 8.8 mm well-defined nodule in the inferior medial portion of the left breast. Correlation with ultrasound is recommended. No other significant abnormalities are identified. There has been no significant change since the prior study. HPBI/SCREENING MAMM (CAD), BILAT IMPRESSION: Stable bi lateral screening mammogram. Correlation with ultrasound of the left breast is recommended to assess the 2 stable nodules. ASSESSMENT CATEGORY: BIRADS Category 0: I ncomplete. Need additional imaging evaluation. A letter regarding these results will be sent to the patient by the facility within 30 days. Approximately 10% of breast cancers are not detected by mammo graphy. A normal mammogram should not delay biopsy of a clinically suspicious abnormality. [id number] Electronically Signed: Cruzito Khan MD at 14:17 EST Tel [phone], Service support , CC: Windy Mayorga DO House Parent: Signed 30-Mar-2017 Inital Evaluation (1) - PT Result: Comments: See Note; NOTES: [facility] Physical Therapy [facility] [facility] [place], [place] [id number] Fax REHABILITATION SERVICES INITIAL EVALUATION MR#: [id number] Acct: [id number] Name: JULIET SHORT Rep #: [id number] : 1950 67 From: Kimberley Clemente DPT Referring DrDimple: Cyndy Ann DPM Status: REG RCR Insurance: MEDICARE P ART A B AARP Patient's Visit Information JULIET SHORT is a 67 year old F referred to Physical Therapy by Cyndy Ann DPM with a diagnosis of Plantar Fascitis. Date of Evaluation: 03/30/17 [facility] sical Therapist: Kimberley Clemente - Visit Plan Frequency: 2x /Week Duration: 2 Weeks Plan: Dry Needling - Subjective Subjective: Patient reports plantar fascitis on the right- has had it before and it w ent away on its own starting 3 years ago- stretches and strengthening with good shoes. This flare started in Oct when she went to [facility]- has been fighting with it since. Its affecting her lifestyle ann spence is a walker and goer. Pain is located in the heel. Pain is sporatic- feels like a dagger and burning around the heel. Worst: 8/10 Agg: walking- Wearing night splints- wears 8-9 hours a night- which elmore s relieved the morning jab. Best: 0/10 Eases: being off of it in the night splint. No radiating pain. X-rays recent which showed the heel spur. Pain is only on the right side. Did have back issues this spring- carrying her daughters twins- has changed her posture and is much better. 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 Does not walk on the TM. Wears good shoes and power step but is having custom orthotics made. PMHx/Meds: no changes since then. - Objective Posture: good throughout. Gait: no deviation noted- good shoes with pro step orthotics. HRTR: WN L- pain with TR in the heel. Balance: 30 sec with 2 episodes of LOB. Flexibility: Gastroc: moderate, Soleus: moderate. ROM: WNL in all planes. Strength: 5/5 throughout - Goals Goal 1:: Patient will be I with HEP and progression Goal Time Frame: 4-6 Weeks Goal 2:: Patient will report 0/10 pain for 1 week Goal Time Frame: 4-6 Weeks Goal 3:: Patient will resume normal activities with 0/10 pain Goal Time Frame: 4-6 Weeks - Rehabilitation Potential Physical Therapy Diagnosis: Patient presents with hypmobility- she has increased inflammation and pain Rehabilitation Potential: Fair - Anticipated Interve ntions Patient/Client Instruction: Educate patient on: Benefits of Fitness Program For the Purpose of:: To increase tolerance to activity/condition/position Therapeutic Exercise to Include: Strength tra ining, Endurance training, Body mechanics, Postural training, Flexibilty training, Passive ROM, Active ROM For the Purpose of:: To improve muscle performance and motor function Manual Therapy Techniques to Include: Functional dry needling, Soft tissue mobilization For the Purpose of:: To improve nutrient delivery to tissue Thank you for the opportunity to evaluate your patient. For Medicare and [facility] plans, please review the plan of care and approve it. It will need to be FAXED BACK to us at [phone] for Medicare purposes. Please let me know if there are questions or concerns regar ding this plan of care. Physician Signature: Date: <Electronically signed by Kimberley Clemente DPT> 03/30/17 3980 CC: Tamika RIVERAM; Windy Mayorga DO ELR Signed For Medicare only, by signing this I certify the plan of care. Physicians Signature Date 26-Nov-2016 PT D/C Summary (1) Result: Comments: See Note; NOTES: [facility] Physical Therapy [address] [place], [place] [address] Fax REHABILITATION SERVICES LAUREN MURRAY SUMMARY MR#: [id number] Acct: [id number] Name: JULIET SHORT Rep #: [id number] : 1950 66 From: Sunshine Green PT, Cert. MDT Referring DrDimple: Windy Mayorga DO Status: REG RCR Insurance: MED ICARE PART A B AARP - PT D/C Summary It has been my pleasure to treat JULIET SHORT under orders from Windy Mayorga, for the diagnosis of LEFT SCIATIC PAIN for a total of 17 visit(s). Discharg e Date: 11/26/16 Please see the following information for a summary of their discharge status. - Subjective Subjective: PATIENT REPORTS SHE THINKS SHE IS READY TO BE DONE WITH PT BUT SHE HAS SOME QUE STIONS ABOUT HER EX'S. PATIENT REPORTS SHE DID SOME RAKING IN THE YARD AND SCRUBBED THE GARGAGE FLOOR WITHOUT ANY TROUBLE AND SHE FEELS GOOD ABOUT THAT. WORST LOW BACK PAIN NOW IS 2/ 10. NO LE NUMBNESS OR TINGLING. SHE REPORTS HER SCIATICA IS GONE COMPLETELY - Pain LLE Pain Intensity (Out of 10): 0 LBP Pain Intensity (Out of 10): 0 - Overall Improvement % Improvement: 99 - Objective Objectiv e/Function: ALL GOALS MET. LUMBAR MVMT LOSS HAS IMPROVED FOLLOWS: FLEX - NIL, EXT - MOD, NIYA SG - MIN. PATIENT DENIED PAIN WITH ALL TESTING TODAY. SHE COMMUNICATED A BETTER UNDERSTANDING OF HER INDEP EX'S PROGRAMS POST SESSION. - Goals Goal 1:: DECREASE C/O LBP/LEFT BUTTOCK AND THIGH SX'S Goal Progress: Goal Met Goal 2:: IMPROVE RISING FROM SITTING, CAREGIVING OF TWINS, SAFE INDEP EX, AND AFTERNOO N SITTING , STANDING AND WALKING FUNCTION Goal Progress: Goal Met Goal 3:: INSTRUCT IN PROPHYLAXIS Goal Progress: Goal Met - Plan Plan: D/C - D/C Information Discharge Comments: PATIENT IS AGREEABLE T O DISCHARGE. If there are questions or concerns regarding this patient's physical therapy, please feel free to call me at [phone]. Thank you for the referral of this patient. Sincerely, Sunshine Arechiga Cro ss <Electronically signed by Cert. MAIRA Stone PTT> 11/26/16 1422 CC: Windy Mayorga DO TIFFANY Signed 29-Sep-2016 Inital Evaluation (1) - PT Result: Comments: See Note; NOTES: [facility] Physical Therapy [address] [place] [address] Fax REHABILITATION SERVICES INITIAL EVALUATION MR#: [id number] Acct: [id number] Name: JULIET SHORT Rep #: [id number] : 1950 66 From: Cert. AMIRA Stone PTT Referring DrDimple: Windy Mayorga DO Status: REG RCR Insurance: [place] D[place] PART A B A[place] Patient's Visit Information JULIET SHORT is a 66 year old F referred to Physical Therapy by Windy Mayorga with a diagnosis of LEFT SCIATIC PAIN. Date of Evaluation: 09/29/16 Physical Therapist: Sunshine Green - Visit Plan Frequency: 2-3x /Week Duration: 4-6 Weeks Plan: AQUATIC THERAPY FOR PAIN RELEIF, DLS WITH A NEUTRAL SPINE INITIALLY WORKING INTO ROM TOLERATED. NIYA LE ROM, STRETCHING AND STRENGTHENING TOLERATED. - Subjective Subjective: Work/Leisure: RETIRED. [employer]. 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 SN[employer]. 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 Disability: NO. Present symptoms: LEFT LOW BACK/BUTTOCK AND POSTERIOR THIGH. ALSO HAS INTERMITTENT LEFT THIGH TINGLING. Present since: ABOUT 3 MONTHS AGO. Pain Scale: 0- 8/10. Currently: 09/09. GETS BETTER AND GETS WORSE RANDOMLY. Commenced as a result of: NO APPARENT REASON. Symptoms at onset: LEFT BUTTOCK. Worse: THE DAY PROGRESS'S. RISING FROM SITTING SOMETIMES IN THE EVEING. CAN'T SLEEP ON HER BACK BECAUSE THE VERY TIP OF HER SPINE HURTS. Better: TYLONOL, ADVIL, LIE DOWN, FREQUENT CHANGE OF POSITION, HOT BATH, A LITTLE STIFF IN THE MORING BUT GOOD ONCE SHE GETTS GOING UNTIL EVENING. Disturbed sleep: NO. Previous history/Previous treatment : COUPLE OF MILD BOUTS OF LEFT BUTTOCK AND LEG SX'S OVER THE YEARS. HX OF LOW BACK PAIN TOO. PT YEARS AGO. RECENTLY STARTED THE EX'S AGAIN AND THEY ARE HELPING. NO BACK SX. NO HARI. CHIROPRACTOR YEARS AGO FOR MONTHS. THIS EPISODE TRIED A MUSCLE RELAXER WITH SOME BENEFIT AND ANTI- INFLAMMATORY BUT NO LONGER TAKING THESE MEDICI MAICO. Coughing/sneezing/straining: POSITIVE IN THE EVENING. Gait: DIFFICULT TO INITIATE GAIT SOMETIMES IN THE EVENEING IF IT IS FLARED UP AFTER SITTING. Difficulty initiating urinatin: NO. Accidents: NO BUT 20 YEARS AGO FELL ON ICE AND LANDED ON HER BUTT. Unexplained weight loss: NO. Imaging: SACRAL X-RAY ABOUT 2 YEARS AGO THAT WAS NEGATIVE. NO RECENT LUMBAR X-RAY. PMH: HTN, HYPOTHYROIDISM. Recent barry r surgery: RIGHT KNEE SURGERY FOR MENISCUS TEAR ABOUT 4 YEARS AGO. STATES SHE NEVER GOT FULL EXTENSION. OTHER: HURT LEFT HIP TRYING TO WORK ON LEFT KNEE EXTENSION AFTER SURGERY. - Objective Sitting Pos ture: POOR. Standing Posture: FAIR. Lordosis: INCREASED. Lateral shift: NO. Relevant shift: N/A. Active Correction of posture: NE. Other Observations: INDEP SIT TO STAND WITHOUT UE'S. LIMPING ON RIGHT L E. SLS ON EACH LEG IS GOOD. Motor deficit: NIYA LE'S 5 /5 WITH MMT EXCEPT LEFT HIP 4/5 AND RIGHT PLANTAR FLEXION 4-/5, RIGHT 4/5. Sensory deficit: NO. ROM deficit: WFL. Reflexes: UNABLE TO ELICIT NIYA LE' S. Dural Signs: NEG NIYA LE'S. Lumbar mvmt loss: flex - MIN TO MOD. ext - AMI IN STANDING. MOD IN LYING. R SG - MOD TO AMI. L SG - MOD TO AMI. Core strength: POOR. OTHER: NIYA KNEE FLEX TO 130 DEG. FULL L EFT KNEE EXT BUT -20 DEG ON THE RIGHT. NEGATIVE NIYA MAX TESTS. GOOD PAINFREE NIYA HIP FLEXION AND EXTENSION ROM WITH TESTING. Palpation: NO TENDERNESS - Goals Goal 1:: DECREASE C/O LBP/LEFT BUTTOCK AN D THIGH SX'S Goal Time Frame: 4-6 Weeks Goal 2:: IMPROVE RISING FROM SITTING, CAREGIVING OF TWINS, SAFE INDEP EX, AND AFTERNOON SITTING , STANDING AND WALKING FUNCTION Goal Time Frame: 4-6 Weeks Goal 3: : INSTRUCT IN PROPHYLAXIS - Rehabilitation Potential Rehabilitation Potential: Good - Anticipated Interventions Patient/Client Instruction: Educate patient on: Condition, Plan of Care, Risk Factors, B enefits of Fitness Program For the Purpose of:: To improve self management Therapeutic Exercise to Include: Strength training, Body mechanics, Postural training, In an aquatic setting, Dynamic Lumbar Stabilization For the Purpose of:: To improve ability of physical actions for home/community/work/leisure Thank you for the opportunity to evaluate your patient. For Medicare and [facility] plans, please review the plan of care and approve it. It will need to be FAXED BACK to us at [phone] for Medicare purposes. Please let me know if there are questions or concerns regard ing this plan of care. Physician Signature: Date: <Electronically signed by Sunshine Green PT, Cert. MDT> 09/29/16 0957 Glendy C: Windy Mayorga DO TIFFANY Signed For Medicare only, by signing this I certify the plan of care. Physicians Signature Date 26-Jun-2016 Bilat Scrn Digital AND CAD Result: Comments: See Note; NOTES: [facility] Imaging Services [address] [place] [address] Verdana 4d Bilat Scrn Digital AND CAD MR#: [id number] Acct: [id number] Name: JULIET SHORT Rep #: [id number] : 1950 F 66 From: Cruzito Khan MD PCP: Windy Mayorga DO Status: REG CLI Study: Bilat Scrn Digital AND CAD Date of Exam: 06/26/16 Exam# [id number] Ordering Dr: Windy Mayorga DO MAMMOGRAPHY - BILATERAL SCREENING REASON FOR EXAM: Female, 66 years old. Routine annual screening examination. PERTINENT HISTORY: Non- contributory. TECHNIQUE: Digital bilateral breas t jazmine (3D mammographic acquisition) in the CC and MLO projections. 2-D mediolateral oblique (MLO) and craniocaudad (CC) views of both breasts were obtained. CAD: Full Field Digital Mammography with Com puter Added Detection was performed. COMPARISON: Comparison is made with prior study dated April 27, 2015 and April 26, 2014 FINDINGS: Breast Composition: There a re scattered areas of fibroglandular density. There are no dominant masses or suspicious calcifications. Stable 1.2 cm well-defined nodule in the upper outer aspect of the left breast. This is stable f rom multiple prior examinations. No other significant abnormalities are identified. There has been no significant change since the prior study. HPBI/Bilat Scrn Digital AND CAD IMPRESSION: Stable bilateral screening mammogram. Yearly follow-up mammogram recommended. (A) ASSESSMENT CATEGORY: BIRADS Category 2: Benign. A letter regarding these results will be sent to the patient by the facility within 30 days. Approximately 10% of breast cancers are not detected by mammography. A normal mammogram should no t delay biopsy of a clinically suspicious abnormality. [id number] Electronically Signed: Cruzito Khan MD at 14:03 EDT Tel [phone], Service support [phone], CC: Windy Mayorga DO House Parent: Signed 26-May-2016 Chest PA and Lateral Result: Comments: See Note; NOTES: [facility] Imaging Services [address] [place] [address] Verdana 4d Chest PA and Lateral MR#: [id number] Acct: [id number] Name: JULIET SHORT Rep #: [id number] : 1950 F 66 From: Samuel Cutler MD PCP: Windy Mayorga DO Status: REG CLI Study: Chest PA and Lateral Date of Exam: 05/26/16 Exam# [id number] Ordering Dr: Gatito Laurent MD STUDY: X-RAY CHEST REASON FOR EXAM: Female, 66 years old. Sarcoidosis TECHNIQUE: PA and lateral views of the chest. COMPARISON: Previous study of 12/03/15 FINDI NGS: There are streaky fibrotic changes of the lung bases. There is no demonstrated pleural abnormality. Normal size heart. Normal mediastinum and mansoor. Normal visualized pulmonary arteries. There are calcified plaques of the aortic arch with mild uncoiling of the thoracic aorta noted. Normal visualized thoracic spine. Normal visualized ribs, clavicles, and shoulders. There is no demonstrated abno rmality of the visualized soft tissue structures of the upper abdomen. RAD/Chest PA and Lateral IMPRESSION: Streaky fibrotic changes of the lung bases. Calcified plaques of the aortic arch. Uncoiling of the thoracic aorta. No hilar or mediastinal mass or adenopathy is seen. There is no evidence of infiltrate or pleural effusion. Electronically Signed: Samuel Cutler MD at 0:00 EDT , Service support [phone], CC: Windy Mayorga DO; Gatito Laurent MD House Parent: Signed 03-Dec-2015 Chest PA and Lateral Result: Comments: See Note; NOTES: [facility] Imaging Services [address] [place] [address] Verdana 4d Chest PA and Lateral MR#: [id number] Acct: [id number] Name: JULIET SHORT Rep #: [id number] : 1950 F 65 From: Rush Arauz MD PCP: Raya Viera DO Status: REG CLI Study: Chest PA and Lateral Date of Exam: 12/03/15 Exam# [id number] Ordering Dr: Wyatt Viera DO STUDY: X-RAY CHEST REASON FOR EXAM: Female, 65 years old. Cough, history of sarcoidosis TECHNIQUE: PA and lateral views of the chest. COMPARISON: 05/27/2011 FINDINGS: The lungs are clear of any acute pneumonic infiltrate or consolidation. There are mild strandy opacities noted the parahilar lung zones and subtle interstitial opacity in the le ft midlung field similar to prior study consistent with interval interstitial changes due to sarcoidosis. There is no demonstrated pleural abnormality. Normal size heart. Hilar regions show a distin ct decrease in the prominence from previous study suggesting regression of adenopathy. Normal visualized pulmonary arteries. There is atherosclerotic tortuosity of the aortic arch and descending thor acic aorta. There is a dextroscoliosis of the lower thoracic spine. Normal visualized ribs, clavicles, and shoulders. There is no demonstrated abnormality of the visualized soft tissue structures of the upper abdomen. IMPRESSION: No acute cardiopulmonary disease is seen, although I suspect some interstitial lung disease or mild fibrotic changes as could b e seen with parenchymal phase of sarcoidosis, interval regression of the hilar prominence or adenopathy previously demonstrated. Electronically Signed: Donnie Arauz MD at 6:54 EDT Tel , Service support [phone], RAD/Chest PA and Lateral IMPRESSION: No acute cardiopulmonary disease is seen, although I suspect some inters titial lung disease or mild fibrotic changes as could be seen with parenchymal phase of sarcoidosis, interval regression of the hilar prominence or adenopathy previously demonstrated. Electronically Signed: Donnie Arauz MD at 6:54 EDT Tel , Service support [phone], CC: Raya Viera DO House Parent: Signed 03-Dec-2015 Spirometry ([id number]) Comments: good effort and curve normal- alot of coughing Result: 27-Apr-2015 Bilat Scrn Digital AND CAD Result: Comments: See Note; NOTES: [facility] Imaging Services [address] [place] [address] Breast Imaging Report MR#: [id number] Acct: [id number] Name: JULIET SHORT Rep #: [id number] : 1950 F 65 From: Cruzito Khan MD PCP: Raya Viera DO Status: REG CLI Study: Bilat Scrn Digital AND CAD Date of Exam: 04/27/15 Exam# [id number] Ordering Dr: Raya Viera DO MAMMOGRAPHY - BILATERAL SCREENING REASON FOR EXAM: Female, 65 years old. Routine annual screening examination. PERTINENT HISTORY: Non-contributory. TECHNIQUE: Digital examination. Mediolateral oblique (MLO) and craniocaudad (CC) views of both breasts were obtained. CAD: CAD was performed on this study. COMPARISON: Comparison is made with prior study dated April 26, 2014 and April 21. FINDINGS: Breast Composition: There are scattered areas of fibroglandular density. There is a stable 1.2 cm well- defined nodule in the upper outer aspect o f the left breast. No other significant abnormalities are identified. There has been no significant change since the prior study. IMPRESSION: Stable bilateral screening mammogram. Yearly follow-up recommended. (A) ASSESSMENT CATEGORY: BIRADS Category 2: Benign. A letter regarding these results will be sent to the [facility] ient by the facility within 30 days. Approximately 10% of breast cancers are not detected by mammography. A normal mammogram should not delay biopsy of a clinically suspicious abnormality. Electro nically Signed: Cruzito Khan MD at 8:58 EDT Tel [phone], Service support [phone], CC: Raya Viera DO House Parent: Signed 05-Oct-2014 Sacrum-Coccyx min 2 Views Result: Comments: See Note; NOTES: [facility] Imaging Services [address] [place] [address] Radiology Report MR#: [id number] Acct: [id number] Name: JULIET SHORT Rep #: [id number] : 1950 F 64 From: Mahendra Bedoya DO PCP: Raya Viera DO Status: REG CLI Study: Sacrum-Coccyx min 2 Views Date of Exam: 10/05/14 Exam# [id number] Ordering Dr: Raya Viera DO STUDY: X-RAY - SACRUM/COCCYX REASON FOR EXAM: Female, 64 years old. Pain without recent injury. TECHNIQUE: 3 view(s) of the sacrum and coccyx were obtained. COMPARISON: None. ___ FINDINGS: Normal bilateral sacroiliac joints. Normal visualized sacral ala and fused sacral bodies. Normal sacrococcygeal junction with a normal angulation. Normal coccygeal segments. The pre sacral soft tissue structures are unremarkable. Phleboliths are seen in the pelvis. IMPRESSION: No acute abnormality of the sacrum or coccyx. Electronically Si gned: Mahendra Bedoya DO at 17:00 EST Tel [phone], Service support [phone], CC: Raya Viera DO House Parent: Signed 26-Apr-2014 Bilat Scrn Digital & CAD Result: Comments: See Note; NOTES: [facility] Imaging Services [address] [place] [address] Breast Imaging Report MR#: [id number] Acct: [id number] Name: JULIET SHORT Rep #: [id number] : 1950 F 64 From: Cruzito Khan MD PCP: Raya Viera DO Status: REG CLI Exam# [id number] Ordering Dr: Raya Viera DO MAMMOGRAPHY - BILATERAL SCREENING REASON FOR EXAM: Fem magdiel, 64 years old. Routine annual screening examination. PERTINENT HISTORY: Non-contributory. 20 pound weight loss. TECHNIQUE: Digital examination. Mediolateral oblique (MLO) and craniocaudad (CC) views of both breasts were obtained. CAD: CAD was performed on this study. COMPARISON: Comparison is made with prior study dated April 21, 2013 and April 05, 2012. ____ FINDINGS: Breast Composition: There are scattered areas Of fibroglandular density. There is a stable 1.2 cm well-defined nodule in the superior lateral aspect of the left breast at this is un changed from prior studies. No other significant abnormalities are identified. There has been no significant change since the prior study. IMPRESSION: Stable b ilateral screening mammogram. Yearly follow-up recommended. (A) ASSESSMENT CATEGORY: BIRADS Category 2: Benign finding(s). A letter regarding these results will be sent to the patient by the facility within 30 days. Approximately 10% of breast cancers are not detected by mammography. A normal mammogram should not delay biopsy of a clinically suspicious abno rmality. Electronically Signed: Cruzito Khan MD at 9:13 EDT Tel [phone], Service support [phone], CC: Raya Viera DO House Parent: Signed 26-Oct-2013 Knee 4 or More Views Result: Comments: See Note; NOTES: [facility] Imaging Services [address] [place] [address] Radiology Report MR#: [id number] Acct: [id number] Name: JULIET SHORT Rep #: [id number] : 1950 F 63 From: Cruzito Khan MD PCP: Raya Viera DO Status: REG CLI Study: Knee 4 or More Views Date of Exam: 10/26/13 Exam# [id number] Ordering Dr: Windy Mayorga DO STUDY : X-RAY - RIGHT KNEE REASON FOR EXAM: Female, 63 years old. Lateral knee pain. TECHNIQUE: 4 views of the knee. COMPARISON: None. FINDINGS: Normal visualized distal femur. Normal visualized proximal tibia and fibula. Normal proximal tibiofibular articulation. There is mild degenerative arthrosis of the medial femorotibial compartment. Normal lateral fem orotibial compartment. There is moderate degenerative arthrosis of the patellofemoral articulation. Faint calcification is seen adjacent to the medial femoral condyle suggestive of calcific tendinit is. IMPRESSION: Mild degenerative arthrosis. Findings suggestive of calcific tendinitis overlying the medial femoral condyle. Electronically Signed: Cruzito Khan M.D. at 16:16 EST , Service support [phone], CC: Raya Viera DO; Windy Mayorga DO House Parent: Signed Immunization Name Dates Details Influenza (3 years and up) on: 06-Jul-2006 Influenza (3 years and up) on: 21-Jun-2007 Comments: Lot #:Expiration date:Amount given:Route: IMSite given:left deltoidGiven by: iveth Lot # [id number] exp 02-28-08 Influenza (3 years and up) on: 16-Jun-2008 Comments: 0.5cc given im lt olga H.Horn Influenza (3 years and up) on: 05-Jun-2009 Pneumococcal conjugate vaccine, 13 valent, IM on: 2014 Comments: Prevnar Family History Unknown Family Member Name Dates Details Brother 1 Comments: In good health Status: Active Father Comments: [place], Prosatate [place], HTN Status: Active Mother Comments: Bladder [place] Status: Active Social History Name Dates Details Caffeine Use Comments: 2 QD Status: Active 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 Status: Active Smoking Status Name Dates Details Former smoker Vital Signs Date Test Result Details [id number] Pulse 63 /min Comments: Pattern: Regular Respiration Rate 18 /min Comments: Pattern: Unlabored O2 SAT 96 % Comments: Room air BP Systolic 120 mm[Hg] Comments: Patient Position: Sitting; Cuff Location: Left Arm; Cuff Size: Large BP Diastolic 70 mm[Hg] Comments: Patient Position: Sitting; Cuff Location: Left Arm; Cuff Size: Large Weight 178.5 lb Height 64 in Body Mass Index Calculated 30.64 kg/m2 Body Surface Area Calculated 1.86 m2 :56 Temperature 97.7 f Comments: Method: Temporal Pulse 76 /min Comments: Pattern: Regular Respiration Rate 16 /min Comments: Pattern: Unlabored O2 SAT 96 % Comments: Room air BP Systolic 122 mm[Hg] Comments: Patient Position: Sitting; Cuff Location: Left Arm; Cuff Size: Standard BP Diastolic 82 mm[Hg] Comments: Patient Position: Sitting; Cuff Location: Left Arm; Cuff Size: Standard Weight 176.125 lb Height 64 in Body Mass Index Calculated 30.23 kg/m2 Body Surface Area Calculated 1.85 m2 :43 Temperature 97.7 f Comments: Method: Temporal Pulse 96 /min Comments: Pattern: Regular Respiration Rate 18 /min Comments: Pattern: Unlabored O2 SAT 95 % Comments: Room air BP Systolic 123 mm[Hg] Comments: Patient Position: Sitting; Cuff Location: Left Arm; Cuff Size: Standard BP Diastolic 82 mm[Hg] Comments: Patient Position: Sitting; Cuff Location: Left Arm; Cuff Size: Standard Weight 176.125 lb Height 64 in Body Mass Index Calculated 30.23 kg/m2 Body Surface Area Calculated 1.85 m2 :06 Pulse 72 /min Comments: Pattern: Regular Respiration Rate 18 /min Comments: Pattern: Unlabored O2 SAT 95 % Comments: Room air BP Systolic 120 mm[Hg] Comments: Patient Position: Sitting; Cuff Location: Left Arm; Cuff Size: Large BP Diastolic 78 mm[Hg] Comments: Patient Position: Sitting; Cuff Location: Left Arm; Cuff Size: Large Weight 176.125 lb Height 64 in Body Mass Index Calculated 30.23 kg/m2 Body Surface Area Calculated 1.85 m2 :32 Temperature 97.4 f Comments: Method: Temporal Pulse 72 /min Comments: Pattern: Regular Respiration Rate 16 /min Comments: Pattern: Unlabored O2 SAT 97 % Comments: Room air BP Systolic 124 mm[Hg] Comments: Patient Position: Sitting; Cuff Location: Left Arm; Cuff Size: Standard BP Diastolic 76 mm[Hg] Comments: Patient Position: Sitting; Cuff Location: Left Arm; Cuff Size: Standard Weight 173.125 lb Height 64 in Body Mass Index Calculated 29.72 kg/m2 Body Surface Area Calculated 1.84 m2 :20 Pulse 78 /min Comments: Pattern: Regular Respiration Rate 18 /min Comments: Pattern: Unlabored O2 SAT 95 % Comments: Room air BP Systolic 126 mm[Hg] Comments: Patient Position: Sitting; Cuff Location: Left Arm; Cuff Size: Large BP Diastolic 74 mm[Hg] Comments: Patient Position: Sitting; Cuff Location: Left Arm; Cuff Size: Large Weight 176.5 lb Height 64 in Body Mass Index Calculated 30.3 kg/m2 Body Surface Area Calculated 1.85 m2 [id number] Temperature 99.9 f Pulse 81 /min Comments: Pattern: Regular Respiration Rate 18 /min Comments: Pattern: Unlabored O2 SAT 93 % Comments: Room air BP Systolic 124 mm[Hg] Comments: Patient Position: Sitting; Cuff Location: Left Arm; Cuff Size: Standard BP Diastolic 66 mm[Hg] Comments: Patient Position: Sitting; Cuff Location: Left Arm; Cuff Size: Standard Weight 176.5 lb Height 64 in Body Mass Index Calculated 30.3 kg/m2 Body Surface Area Calculated 1.85 m2 :20 Pulse 79 /min Comments: Pattern: Regular Respiration Rate 18 /min Comments: Pattern: Unlabored O2 SAT 97 % Comments: Room air BP Systolic 128 mm[Hg] Comments: Patient Position: Sitting; Cuff Location: Left Arm; Cuff Size: Standard BP Diastolic 88 mm[Hg] Comments: Patient Position: Sitting; Cuff Location: Left Arm; Cuff Size: Standard Weight 176.5 lb Height 64 in Body Mass Index Calculated 30.3 kg/m2 Body Surface Area Calculated 1.85 m2 :54 Temperature 97.2 f Pulse 72 /min Comments: Pattern: Regular Respiration Rate 18 /min Comments: Pattern: Unlabored O2 SAT 94 % Comments: Room air BP Systolic 130 mm[Hg] Comments: Patient Position: Sitting; Cuff Location: Left Arm; Cuff Size: Large BP Diastolic 62 mm[Hg] Comments: Patient Position: Sitting; Cuff Location: Left Arm; Cuff Size: Large Weight 178.125 lb Height 64 in Body Mass Index Calculated 30.57 kg/m2 Body Surface Area Calculated 1.86 m2 :30 Pulse 74 /min Comments: Pattern: Regular Respiration Rate 18 /min Comments: Pattern: Unlabored O2 SAT 97 % Comments: Room air BP Systolic 120 mm[Hg] Comments: Patient Position: Sitting; Cuff Location: Left Arm; Cuff Size: Standard BP Diastolic 78 mm[Hg] Comments: Patient Position: Sitting; Cuff Location: Left Arm; Cuff Size: Standard Weight 175.375 lb Height 64 in Body Mass Index Calculated 30.1 kg/m2 Body Surface Area Calculated 1.85 m2 :22 Temperature 97.6 f Comments: Method: Temporal Pulse 74 /min Comments: Pattern: Regular Respiration Rate 20 /min Comments: Pattern: Unlabored O2 SAT 97 % Comments: Room air BP Systolic 118 mm[Hg] Comments: Patient Position: Sitting; Cuff Location: Left Arm; Cuff Size: Large BP Diastolic 78 mm[Hg] Comments: Patient Position: Sitting; Cuff Location: Left Arm; Cuff Size: Large Weight 185 lb Height 64 in Body Mass Index Calculated 31.75 kg/m2 Body Surface Area Calculated 1.89 m2 :25 Pulse 66 /min Comments: Pattern: Regular Respiration Rate 18 /min Comments: Pattern: Unlabored O2 SAT 96 % Comments: Room air BP Systolic 120 mm[Hg] Comments: Patient Position: Sitting; Cuff Location: Left Arm; Cuff Size: Large BP Diastolic 80 mm[Hg] Comments: Patient Position: Sitting; Cuff Location: Left Arm; Cuff Size: Large Weight 185.5 lb Height 64 in Body Mass Index Calculated 31.84 kg/m2 Body Surface Area Calculated 1.89 m2 :30 Comments: hearing wnlDrFenzel and had a glaucoma test done Pulse 96 /min Comments: Pattern: Regular Respiration Rate 18 /min Comments: Pattern: Unlabored O2 SAT 96 % Comments: Room air BP Systolic 122 mm[Hg] Comments: Patient Position: Sitting; Cuff Location: Left Arm; Cuff Size: Large BP Diastolic 80 mm[Hg] Comments: Patient Position: Sitting; Cuff Location: Left Arm; Cuff Size: Large Weight 186.5 lb Height 64 in Body Mass Index Calculated 32.01 kg/m2 Body Surface Area Calculated 1.9 m2 :04 Pulse 84 /min Comments: Pattern: Regular Respiration Rate 16 /min Comments: Pattern: Unlabored O2 SAT 97 % Comments: Room air BP Systolic 120 mm[Hg] Comments: Patient Position: Sitting; Cuff Location: Left Arm; Cuff Size: Standard BP Diastolic 80 mm[Hg] Comments: Patient Position: Sitting; Cuff Location: Left Arm; Cuff Size: Standard Weight 183 lb Height 64 in Body Mass Index Calculated 31.41 kg/m2 Body Surface Area Calculated 1.88 m2 :04 Temperature 97.4 f Pulse 70 /min Comments: Pattern: Regular Respiration Rate 17 /min Comments: Pattern: Unlabored O2 SAT 98 % Comments: Room air BP Systolic 118 mm[Hg] Comments: Patient Position: Sitting; Cuff Location: Left Arm; Cuff Size: Standard BP Diastolic 82 mm[Hg] Comments: Patient Position: Sitting; Cuff Location: Left Arm; Cuff Size: Standard Weight 182 lb Height 64 in Body Mass Index Calculated 31.24 kg/m2 Body Surface Area Calculated 1.88 m2 :31 Pulse 64 /min Comments: Pattern: Regular Respiration Rate 18 /min Comments: Pattern: Unlabored O2 SAT 97 % Comments: Room air BP Systolic 128 mm[Hg] Comments: Patient Position: Sitting; Cuff Location: Left Arm; Cuff Size: Standard BP Diastolic 78 mm[Hg] Comments: Patient Position: Sitting; Cuff Location: Left Arm; Cuff Size: Standard Weight 182 lb Height 64 in Body Mass Index Calculated 31.24 kg/m2 Body Surface Area Calculated 1.88 m2 :03 Temperature 98.3 f Comments: Method: Temporal Pulse 65 /min Comments: Pattern: Regular Respiration Rate 15 /min Comments: Pattern: Unlabored O2 SAT 96 % Comments: Room air BP Systolic 114 mm[Hg] Comments: Patient Position: Sitting; Cuff Location: Left Arm; Cuff Size: Large BP Diastolic 78 mm[Hg] Comments: Patient Position: Sitting; Cuff Location: Left Arm; Cuff Size: Large Weight 182 lb Height 64 in Body Mass Index Calculated 31.24 kg/m2 Body Surface Area Calculated 1.88 m2 :36 Temperature 98.8 f Comments: Method: Temporal Pulse 68 /min Comments: Pattern: Regular Respiration Rate 16 /min Comments: Pattern: Unlabored O2 SAT 97 % Comments: Room air BP Systolic 108 mm[Hg] Comments: Patient Position: Sitting; Cuff Location: Left Arm; Cuff Size: Standard BP Diastolic 70 mm[Hg] Comments: Patient Position: Sitting; Cuff Location: Left Arm; Cuff Size: Standard Weight 181 lb Height 64 in Body Mass Index Calculated 31.07 kg/m2 Body Surface Area Calculated 1.87 m2 :13 Temperature 97.8 f Pulse 84 /min Comments: Pattern: Regular Respiration Rate 16 /min Comments: Pattern: Unlabored O2 SAT 95 % Comments: Room air BP Systolic 132 mm[Hg] Comments: Patient Position: Sitting; Cuff Location: Left Arm; Cuff Size: Standard BP Diastolic 82 mm[Hg] Comments: Patient Position: Sitting; Cuff Location: Left Arm; Cuff Size: Standard Weight 181 lb Height 64 in Body Mass Index Calculated 31.07 kg/m2 Body Surface Area Calculated 1.87 m2 :54 Temperature 97 f Comments: Method: Oral Pulse 78 /min Comments: Pattern: Regular Respiration Rate 16 /min Comments: Pattern: Unlabored BP Systolic 118 mm[Hg] Comments: Patient Position: Sitting; Cuff Location: Left Arm; Cuff Size: Standard BP Diastolic 78 mm[Hg] Comments: Patient Position: Sitting; Cuff Location: Left Arm; Cuff Size: Standard Weight 181 lb Height 64 in Body Mass Index Calculated 31.07 kg/m2 Body Surface Area Calculated 1.87 m2 :19 Temperature 96.9 f Comments: Method: Temporal Pulse 67 /min Comments: Pattern: Regular Respiration Rate 16 /min Comments: Pattern: Unlabored BP Systolic 100 mm[Hg] Comments: Patient Position: Sitting; Cuff Location: Left Arm; Cuff Size: Standard BP Diastolic 70 mm[Hg] Comments: Patient Position: Sitting; Cuff Location: Left Arm; Cuff Size: Standard Weight 178 lb Height 64 in Body Mass Index Calculated 30.55 kg/m2 Body Surface Area Calculated 1.86 m2 :06 Temperature 97.8 f Pulse 73 /min Comments: Pattern: Regular Respiration Rate 16 /min Comments: Pattern: Unlabored O2 SAT 96 % Comments: Room air BP Systolic 118 mm[Hg] Comments: Patient Position: Sitting; Cuff Location: Left Arm; Cuff Size: Standard BP Diastolic 80 mm[Hg] Comments: Patient Position: Sitting; Cuff Location: Left Arm; Cuff Size: Standard Weight 176.5 lb Height 64 in Body Mass Index Calculated 30.3 kg/m2 Body Surface Area Calculated 1.85 m2 :20 Pulse 75 /min Comments: Pattern: Regular Respiration Rate 18 /min Comments: Pattern: Unlabored O2 SAT 98 % Comments: Room air BP Systolic 122 mm[Hg] Comments: Patient Position: Sitting; Cuff Location: Left Arm; Cuff Size: Large BP Diastolic 80 mm[Hg] Comments: Patient Position: Sitting; Cuff Location: Left Arm; Cuff Size: Large Weight 180 lb Height 64 in Body Mass Index Calculated 30.9 kg/m2 Body Surface Area Calculated 1.87 m2 :27 Temperature 96.9 f Pulse 64 /min Comments: Pattern: Regular Respiration Rate 16 /min Comments: Pattern: Unlabored BP Systolic 116 mm[Hg] Comments: Patient Position: Sitting; Cuff Location: Left Arm; Cuff Size: Standard BP Diastolic 92 mm[Hg] Comments: Patient Position: Sitting; Cuff Location: Left Arm; Cuff Size: Standard Weight 180 lb Height 64 in Body Mass Index Calculated 30.9 kg/m2 Body Surface Area Calculated 1.87 m2 :59 Temperature 97.4 f Comments: Method: Oral Pulse 78 /min Comments: Pattern: Regular Respiration Rate 15 /min O2 SAT 97 % Comments: Room air BP Systolic 110 mm[Hg] Comments: Patient Position: Sitting; Cuff Location: Left Arm; Cuff Size: Standard BP Diastolic 68 mm[Hg] Comments: Patient Position: Sitting; Cuff Location: Left Arm; Cuff Size: Standard Weight 178.0625 lb Height 64 in Body Mass Index Calculated 30.56 kg/m2 Body Surface Area Calculated 1.86 m2 :51 Temperature 97.7 f Comments: Method: Oral Pulse 61 /min Comments: Pattern: Regular Respiration Rate 16 /min O2 SAT 98 % Comments: Room air BP Systolic 110 mm[Hg] Comments: Patient Position: Sitting; Cuff Location: Left Arm; Cuff Size: Standard BP Diastolic 60 mm[Hg] Comments: Patient Position: Sitting; Cuff Location: Left Arm; Cuff Size: Standard Weight 178.0625 lb Height 64 in Body Mass Index Calculated 30.56 kg/m2 Body Surface Area Calculated 1.86 m2 :33 Comments: weight and height were brought down from previous visit Pulse 64 /min Comments: Pattern: Regular BP Systolic 110 mm[Hg] Comments: Patient Position: Sitting; Cuff Location: Right Arm; Cuff Size: Standard BP Diastolic 80 mm[Hg] Comments: Patient Position: Sitting; Cuff Location: Right Arm; Cuff Size: Standard Weight 179 lb Height 64.25 in Body Mass Index Calculated 30.49 kg/m2 Body Surface Area Calculated 1.87 m2 :39 Comments: recheck: 115/70 Temperature 97.2 f Pulse 68 /min Comments: Pattern: Regular Respiration Rate 16 /min Comments: Pattern: Unlabored BP Systolic 102 mm[Hg] Comments: Patient Position: Sitting; Cuff Location: Left Arm; Cuff Size: Large BP Diastolic 62 mm[Hg] Comments: Patient Position: Sitting; Cuff Location: Left Arm; Cuff Size: Large Weight 179 lb Height 64.25 in Body Mass Index Calculated 30.49 kg/m2 Body Surface Area Calculated 1.87 m2 :14 Temperature 97.9 f Comments: Method: Tympanic Pulse 82 /min Comments: Pattern: Regular Respiration Rate 16 /min Comments: Pattern: Labored O2 SAT 96 % Comments: Room air BP Systolic 116 mm[Hg] Comments: Patient Position: Sitting; Cuff Location: Left Arm; Cuff Size: Large BP Diastolic 72 mm[Hg] Comments: Patient Position: Sitting; Cuff Location: Left Arm; Cuff Size: Large Weight 188.125 lb Height 64.25 in Body Mass Index Calculated 32.04 kg/m2 Body Surface Area Calculated 1.91 m2 :42 Temperature 98.7 f Comments: Method: Oral Pulse 62 /min Comments: Pattern: Regular Respiration Rate 18 /min Comments: Pattern: Unlabored O2 SAT 98 % Comments: Room air BP Systolic 124 mm[Hg] Comments: Patient Position: Sitting; Cuff Location: Left Arm; Cuff Size: Large BP Diastolic 62 mm[Hg] Comments: Patient Position: Sitting; Cuff Location: Left Arm; Cuff Size: Large Weight 188.125 lb Height 64.25 in Body Mass Index Calculated 32.04 kg/m2 Body Surface Area Calculated 1.91 m2 :23 Temperature 97.8 f Comments: Method: Oral Pulse 66 /min Comments: Pattern: Regular Respiration Rate 18 /min Comments: Pattern: Unlabored O2 SAT 98 % Comments: Room air BP Systolic 128 mm[Hg] Comments: Patient Position: Sitting; Cuff Location: Left Arm; Cuff Size: Large BP Diastolic 78 mm[Hg] Comments: Patient Position: Sitting; Cuff Location: Left Arm; Cuff Size: Large Weight 187 lb Height 64.25 in Body Mass Index Calculated 31.85 kg/m2 Body Surface Area Calculated 1.91 m2 :08 Temperature 97.7 f Comments: Method: Oral Pulse 73 /min Comments: Pattern: Regular Respiration Rate 20 /min Comments: Pattern: Unlabored O2 SAT 97 % Comments: Room air BP Systolic 118 mm[Hg] Comments: Patient Position: Sitting; Cuff Location: Left Arm; Cuff Size: Large BP Diastolic 78 mm[Hg] Comments: Patient Position: Sitting; Cuff Location: Left Arm; Cuff Size: Large Weight 187 lb Height 64.25 in Body Mass Index Calculated 31.85 kg/m2 Body Surface Area Calculated 1.91 m2 :24 Comments: hearing wnlvision Dr. Horowitz Pulse 68 /min Comments: Pattern: Regular Respiration Rate 16 /min Comments: Pattern: Unlabored O2 SAT 97 % Comments: Room air BP Systolic 120 mm[Hg] Comments: Patient Position: Sitting; Cuff Location: Left Arm; Cuff Size: Large BP Diastolic 70 mm[Hg] Comments: Patient Position: Sitting; Cuff Location: Left Arm; Cuff Size: Large Weight 187 lb Height 64.25 in Body Mass Index Calculated 31.85 kg/m2 Body Surface Area Calculated 1.91 m2 :45 Temperature 97.7 f Pulse 64 /min Comments: Pattern: Regular Respiration Rate 16 /min Comments: Pattern: Unlabored BP Systolic 122 mm[Hg] Comments: Patient Position: Sitting; Cuff Location: Left Arm; Cuff Size: Large BP Diastolic 76 mm[Hg] Comments: Patient Position: Sitting; Cuff Location: Left Arm; Cuff Size: Large Weight 187 lb Height 64.25 in Body Mass Index Calculated 31.85 kg/m2 Body Surface Area Calculated 1.91 m2 :52 Temperature 98.1 f Comments: Method: Oral Pulse 74 /min Comments: Pattern: Regular Respiration Rate 20 /min Comments: Pattern: Unlabored O2 SAT 98 % Comments: Room air BP Systolic 114 mm[Hg] Comments: Patient Position: Sitting; Cuff Location: Left Arm; Cuff Size: Standard BP Diastolic 74 mm[Hg] Comments: Patient Position: Sitting; Cuff Location: Left Arm; Cuff Size: Standard Weight 181 lb Height 64.25 in Body Mass Index Calculated 30.83 kg/m2 Body Surface Area Calculated 1.88 m2 :06 Temperature 99.6 f Pulse 72 /min Comments: Pattern: Regular Respiration Rate 16 /min Comments: Pattern: Unlabored BP Systolic 114 mm[Hg] Comments: Patient Position: Sitting; Cuff Location: Left Arm; Cuff Size: Large BP Diastolic 80 mm[Hg] Comments: Patient Position: Sitting; Cuff Location: Left Arm; Cuff Size: Large Weight 181 lb Height 64.25 in Body Mass Index Calculated 30.83 kg/m2 Body Surface Area Calculated 1.88 m2 :01 Temperature 96.5 f Comments: Method: Oral Pulse 62 /min Comments: Pattern: Regular Respiration Rate 16 /min Comments: Pattern: Unlabored O2 SAT 96 % Comments: Room air BP Systolic 116 mm[Hg] Comments: Patient Position: Sitting; Cuff Location: Left Arm; Cuff Size: Standard BP Diastolic 64 mm[Hg] Comments: Patient Position: Sitting; Cuff Location: Left Arm; Cuff Size: Standard Weight 180 lb Height 64.25 in Body Mass Index Calculated 30.66 kg/m2 Body Surface Area Calculated 1.88 m2 :46 Temperature 97.5 f Comments: Method: Oral Pulse 72 /min Comments: Pattern: Regular Respiration Rate 20 /min Comments: Pattern: Unlabored BP Systolic 120 mm[Hg] Comments: Patient Position: Sitting; Cuff Location: Left Arm; Cuff Size: Large BP Diastolic 78 mm[Hg] Comments: Patient Position: Sitting; Cuff Location: Left Arm; Cuff Size: Large Weight 180 lb Height 64.25 in Body Mass Index Calculated 30.66 kg/m2 Body Surface Area Calculated 1.88 m2 :43 Temperature 98.1 f Comments: Method: Oral Pulse 72 /min Comments: Pattern: Regular Respiration Rate 20 /min Comments: Pattern: Unlabored BP Systolic 120 mm[Hg] Comments: Patient Position: Sitting; Cuff Location: Left Arm; Cuff Size: Large BP Diastolic 80 mm[Hg] Comments: Patient Position: Sitting; Cuff Location: Left Arm; Cuff Size: Large Weight 180 lb Height 64.25 in Body Mass Index Calculated 30.66 kg/m2 Body Surface Area Calculated 1.88 m2 :31 Temperature 98.1 f Pulse 84 /min Comments: Pattern: Regular Respiration Rate 18 /min Comments: Pattern: Unlabored BP Systolic 120 mm[Hg] Comments: Patient Position: Sitting; Cuff Location: Left Arm; Cuff Size: Large BP Diastolic 82 mm[Hg] Comments: Patient Position: Sitting; Cuff Location: Left Arm; Cuff Size: Large Weight 180 lb Height 64.25 in Body Mass Index Calculated 30.66 kg/m2 Body Surface Area Calculated 1.88 m2 :05 Temperature 97.4 f Pulse 64 /min Comments: Pattern: Regular Respiration Rate 18 /min Comments: Pattern: Unlabored BP Systolic 118 mm[Hg] Comments: Patient Position: Sitting; Cuff Location: Left Arm; Cuff Size: Large BP Diastolic 80 mm[Hg] Comments: Patient Position: Sitting; Cuff Location: Left Arm; Cuff Size: Large Weight 183 lb Height 64.25 in Body Mass Index Calculated 31.17 kg/m2 Body Surface Area Calculated 1.89 m2 :03 Temperature 98.8 f Comments: Method: Oral Pulse 72 /min Comments: Pattern: Regular Respiration Rate 16 /min Comments: Pattern: Unlabored BP Systolic 112 mm[Hg] Comments: Patient Position: Sitting; Cuff Location: Left Arm; Cuff Size: Standard BP Diastolic 76 mm[Hg] Comments: Patient Position: Sitting; Cuff Location: Left Arm; Cuff Size: Standard Weight 187 lb Height 64.25 in Body Mass Index Calculated 31.85 kg/m2 Body Surface Area Calculated 1.91 m2 :40 Temperature 97.2 f Comments: Method: Oral Pulse 74 /min Comments: Pattern: Regular Respiration Rate 16 /min Comments: Pattern: Unlabored BP Systolic 118 mm[Hg] Comments: Patient Position: Sitting; Cuff Location: Left Arm; Cuff Size: Standard BP Diastolic 72 mm[Hg] Comments: Patient Position: Sitting; Cuff Location: Left Arm; Cuff Size: Standard Weight 187 lb Height 64.25 in Body Mass Index Calculated 31.85 kg/m2 Body Surface Area Calculated 1.91 m2 :54 Temperature 97 f Comments: Method: Oral Pulse 72 /min Comments: Pattern: Regular Respiration Rate 16 /min Comments: Pattern: Unlabored BP Systolic 114 mm[Hg] Comments: Patient Position: Sitting; Cuff Location: Left Arm; Cuff Size: Standard BP Diastolic 70 mm[Hg] Comments: Patient Position: Sitting; Cuff Location: Left Arm; Cuff Size: Standard Weight 187 lb Height 64.25 in Body Mass Index Calculated 31.85 kg/m2 Body Surface Area Calculated 1.91 m2 :41 Temperature 97.2 f Comments: Method: Oral Pulse 68 /min Comments: Pattern: Regular Respiration Rate 20 /min Comments: Pattern: Unlabored BP Systolic 122 mm[Hg] Comments: Patient Position: Sitting; Cuff Location: Left Arm; Cuff Size: Large BP Diastolic 80 mm[Hg] Comments: Patient Position: Sitting; Cuff Location: Left Arm; Cuff Size: Large Weight 187 lb Height 64.25 in Body Mass Index Calculated 31.85 kg/m2 Body Surface Area Calculated 1.91 m2 :15 Temperature 98 f Pulse 68 /min Comments: Pattern: Regular Respiration Rate 16 /min Comments: Pattern: Unlabored BP Systolic 120 mm[Hg] Comments: Patient Position: Sitting; Cuff Location: Left Arm; Cuff Size: Large BP Diastolic 80 mm[Hg] Comments: Patient Position: Sitting; Cuff Location: Left Arm; Cuff Size: Large Weight 187 lb Height 64.25 in Body Mass Index Calculated 31.85 kg/m2 Body Surface Area Calculated 1.91 m2 :58 Pulse 72 /min Comments: Pattern: Regular Respiration Rate 16 /min Comments: Pattern: Unlabored BP Systolic 112 mm[Hg] Comments: Patient Position: Supine; Cuff Location: Left Arm; Cuff Size: Standard BP Diastolic 70 mm[Hg] Comments: Patient Position: Supine; Cuff Location: Left Arm; Cuff Size: Standard Weight 187 lb Height 64.25 in Body Mass Index Calculated 31.85 kg/m2 Body Surface Area Calculated 1.91 m2 :06 Temperature 98.8 f Pulse 72 /min Comments: Pattern: Regular Respiration Rate 16 /min Comments: Pattern: Unlabored BP Systolic 108 mm[Hg] Comments: Patient Position: Sitting; Cuff Location: Left Arm; Cuff Size: Large BP Diastolic 70 mm[Hg] Comments: Patient Position: Sitting; Cuff Location: Left Arm; Cuff Size: Large Weight 187 lb Height 64.25 in Body Mass Index Calculated 31.85 kg/m2 Body Surface Area Calculated 1.91 m2 :56 Pulse 60 /min Comments: Pattern: Regular Respiration Rate 20 /min Comments: Pattern: Unlabored BP Systolic 128 mm[Hg] Comments: Patient Position: Sitting; Cuff Location: Left Arm; Cuff Size: Large BP Diastolic 82 mm[Hg] Comments: Patient Position: Sitting; Cuff Location: Left Arm; Cuff Size: Large Weight 189.4375 lb Height 64.25 in Body Mass Index Calculated 32.26 kg/m2 Body Surface Area Calculated 1.92 m2 :18 Temperature 97.3 f Pulse 68 /min Comments: Pattern: Regular Respiration Rate 16 /min Comments: Pattern: Unlabored BP Systolic 108 mm[Hg] Comments: Patient Position: Sitting; Cuff Location: Left Arm; Cuff Size: Standard BP Diastolic 76 mm[Hg] Comments: Patient Position: Sitting; Cuff Location: Left Arm; Cuff Size: Standard Weight 188 lb Height 64.25 in Body Mass Index Calculated 32.02 kg/m2 Body Surface Area Calculated 1.91 m2 :36 Temperature 98.1 f Pulse 62 /min Comments: Pattern: Regular Respiration Rate 16 /min Comments: Pattern: Unlabored BP Systolic 112 mm[Hg] Comments: Patient Position: Sitting; Cuff Location: Left Arm; Cuff Size: Large BP Diastolic 72 mm[Hg] Comments: Patient Position: Sitting; Cuff Location: Left Arm; Cuff Size: Large Weight 188 lb Height 64.25 in Body Mass Index Calculated 32.02 kg/m2 Body Surface Area Calculated 1.91 m2 :13 Temperature 96.7 f Pulse 68 /min Comments: Pattern: Regular Respiration Rate 16 /min Comments: Pattern: Unlabored O2 SAT 96 % Comments: Room air BP Systolic 116 mm[Hg] Comments: Patient Position: Sitting; Cuff Location: Left Arm; Cuff Size: Standard BP Diastolic 76 mm[Hg] Comments: Patient Position: Sitting; Cuff Location: Left Arm; Cuff Size: Standard :55 Temperature 96.6 f Comments: Method: Oral Pulse 70 /min Comments: Pattern: Regular Respiration Rate 16 /min Comments: Pattern: Unlabored BP Systolic 118 mm[Hg] Comments: Patient Position: Sitting; Cuff Location: Left Arm; Cuff Size: Standard BP Diastolic 78 mm[Hg] Comments: Patient Position: Sitting; Cuff Location: Left Arm; Cuff Size: Standard Weight 181 lb Height 64.5 in Body Mass Index Calculated 30.59 kg/m2 Body Surface Area Calculated 1.89 m2 :00 Temperature 97.3 f Comments: Method: Oral Pulse 64 /min Comments: Pattern: Regular Respiration Rate 16 /min Comments: Pattern: Unlabored O2 SAT 95 % Comments: Room air BP Systolic 118 mm[Hg] Comments: Patient Position: Sitting; Cuff Location: Left Arm; Cuff Size: Standard BP Diastolic 72 mm[Hg] Comments: Patient Position: Sitting; Cuff Location: Left Arm; Cuff Size: Standard Weight 181 lb Height 64.5 in Body Mass Index Calculated 30.59 kg/m2 Body Surface Area Calculated 1.89 m2 :42 Temperature 97.9 f Pulse 76 /min Comments: Pattern: Regular Respiration Rate 18 /min Comments: Pattern: Unlabored BP Systolic 120 mm[Hg] Comments: Patient Position: Sitting; Cuff Location: Left Arm; Cuff Size: Standard BP Diastolic 72 mm[Hg] Comments: Patient Position: Sitting; Cuff Location: Left Arm; Cuff Size: Standard Weight 181 lb Height 64.5 in Body Mass Index Calculated 30.59 kg/m2 Body Surface Area Calculated 1.89 m2 :21 Temperature 97.7 f Comments: Method: Oral Pulse 76 /min Comments: Pattern: Regular Respiration Rate 18 /min Comments: Pattern: Unlabored BP Systolic 112 mm[Hg] Comments: Patient Position: Sitting; Cuff Location: Left Arm; Cuff Size: Standard BP Diastolic 64 mm[Hg] Comments: Patient Position: Sitting; Cuff Location: Left Arm; Cuff Size: Standard Weight 183 lb Height 66 in Body Mass Index Calculated 29.54 kg/m2 Body Surface Area Calculated 1.93 m2 :08 Temperature 97.6 f Comments: Method: Oral Pulse 66 /min Comments: Pattern: Regular Respiration Rate 17 /min Comments: Pattern: Unlabored BP Systolic 120 mm[Hg] Comments: Patient Position: Sitting; Cuff Location: Left Arm; Cuff Size: Standard BP Diastolic 82 mm[Hg] Comments: Patient Position: Sitting; Cuff Location: Left Arm; Cuff Size: Standard Weight 181 lb Height 64.25 in Body Mass Index Calculated 30.83 kg/m2 Body Surface Area Calculated 1.88 m2 Head Circumference 0.00 cm :16 Pulse 56 /min Comments: Pattern: Regular Respiration Rate 18 /min Comments: Pattern: Undefined BP Systolic 118 mm[Hg] Comments: Patient Position: Sitting; Cuff Location: Right Arm; Cuff Size: Standard BP Diastolic 70 mm[Hg] Comments: Patient Position: Sitting; Cuff Location: Right Arm; Cuff Size: Standard Weight 181 lb Height 64.25 in Body Mass Index Calculated 30.83 kg/m2 Body Surface Area Calculated 1.88 m2 Head Circumference 0.00 cm :57 Pulse 68 /min Comments: Pattern: Regular Respiration Rate 16 /min Comments: Pattern: Unlabored BP Systolic 116 mm[Hg] Comments: Patient Position: Supine; Cuff Location: Left Arm; Cuff Size: Standard BP Diastolic 78 mm[Hg] Comments: Patient Position: Supine; Cuff Location: Left Arm; Cuff Size: Standard Weight 183 lb Height 64.25 in Body Mass Index Calculated 31.17 kg/m2 Body Surface Area Calculated 1.89 m2 Head Circumference 0.00 cm : Temperature 97.8 f Comments: Method: Oral Pulse 68 /min Comments: Pattern: Regular Respiration Rate 18 /min Comments: Pattern: Unlabored BP Systolic 118 mm[Hg] Comments: Patient Position: Sitting; Cuff Location: Right Arm; Cuff Size: Standard BP Diastolic 72 mm[Hg] Comments: Patient Position: Sitting; Cuff Location: Right Arm; Cuff Size: Standard Weight 0 lb Height 0 in Head Circumference 0.00 cm :06 Temperature 98.4 f Comments: Method: Undefined Pulse 64 /min Comments: Pattern: Regular Respiration Rate 16 /min Comments: Pattern: Undefined BP Systolic 112 mm[Hg] Comments: Patient Position: Sitting; Cuff Location: Left Arm; Cuff Size: Large BP Diastolic 80 mm[Hg] Comments: Patient Position: Sitting; Cuff Location: Left Arm; Cuff Size: Large Weight 183 lb Height 64.25 in Body Mass Index Calculated 31.17 kg/m2 Body Surface Area Calculated 1.89 m2 Head Circumference 0.00 cm :21 Temperature 98 f Comments: Method: Oral Pulse 66 /min Comments: Pattern: Regular Respiration Rate 16 /min Comments: Pattern: Unlabored BP Systolic 120 mm[Hg] Comments: Patient Position: Sitting; Cuff Location: Left Arm; Cuff Size: Standard BP Diastolic 72 mm[Hg] Comments: Patient Position: Sitting; Cuff Location: Left Arm; Cuff Size: Standard Weight 187 lb Height 0 in Head Circumference 0.00 cm :19 Temperature 97.5 f Comments: Method: Oral Pulse 62 /min Comments: Pattern: Regular Respiration Rate 16 /min Comments: Pattern: Unlabored BP Systolic 108 mm[Hg] Comments: Patient Position: Sitting; Cuff Location: Left Arm; Cuff Size: Standard BP Diastolic 70 mm[Hg] Comments: Patient Position: Sitting; Cuff Location: Left Arm; Cuff Size: Standard Weight 187 lb Height 0 in Head Circumference 0.00 cm :19 Temperature 95.9 f Comments: Method: Undefined Pulse 64 /min Comments: Pattern: Regular Respiration Rate 16 /min Comments: Pattern: Undefined BP Systolic 130 mm[Hg] Comments: Patient Position: Sitting; Cuff Location: Right Arm; Cuff Size: Large BP Diastolic 90 mm[Hg] Comments: Patient Position: Sitting; Cuff Location: Right Arm; Cuff Size: Large Weight 187 lb Height 0 in Head Circumference 0.00 cm :57 Pulse 70 /min Comments: Pattern: Regular Respiration Rate 16 /min Comments: Pattern: Unlabored BP Systolic 118 mm[Hg] Comments: Patient Position: Sitting; Cuff Location: Left Arm; Cuff Size: Large BP Diastolic 80 mm[Hg] Comments: Patient Position: Sitting; Cuff Location: Left Arm; Cuff Size: Large Weight 0 lb Height 0 in Head Circumference 0.00 cm :29 Temperature 97.5 f Comments: Method: Undefined Pulse 68 /min Comments: Pattern: Regular Respiration Rate 16 /min Comments: Pattern: Undefined BP Systolic 118 mm[Hg] Comments: Patient Position: Sitting; Cuff Location: Right Arm; Cuff Size: Large BP Diastolic 76 mm[Hg] Comments: Patient Position: Sitting; Cuff Location: Right Arm; Cuff Size: Large Weight 188 lb Height 0 in Head Circumference 0.00 cm :10 Temperature 97.5 f Comments: Method: Undefined Pulse 68 /min Comments: Pattern: Regular Respiration Rate 16 /min Comments: Pattern: Undefined BP Systolic 120 mm[Hg] Comments: Patient Position: Sitting; Cuff Location: Left Arm; Cuff Size: Standard BP Diastolic 84 mm[Hg] Comments: Patient Position: Sitting; Cuff Location: Left Arm; Cuff Size: Standard Weight 0 lb Height 0 in Head Circumference 0.00 cm :53 Pulse 72 /min Comments: Pattern: Regular Respiration Rate 18 /min Comments: Pattern: Unlabored BP Systolic 118 mm[Hg] Comments: Patient Position: Sitting; Cuff Location: Left Arm; Cuff Size: Standard BP Diastolic 72 mm[Hg] Comments: Patient Position: Sitting; Cuff Location: Left Arm; Cuff Size: Standard Weight 0 lb Height 0 in Head Circumference 0.00 cm :27 Temperature 98.4 f Comments: Method: Undefined Pulse 64 /min Comments: Pattern: Regular Respiration Rate 18 /min Comments: Pattern: Undefined BP Systolic 116 mm[Hg] Comments: Patient Position: Sitting; Cuff Location: Right Arm; Cuff Size: Standard BP Diastolic 74 mm[Hg] Comments: Patient Position: Sitting; Cuff Location: Right Arm; Cuff Size: Standard Weight 185 lb Height 0 in Head Circumference 0.00 cm :12 Temperature 98.3 f Comments: Method: Undefined Pulse 68 /min Comments: Pattern: Regular Respiration Rate 16 /min Comments: Pattern: Undefined BP Systolic 106 mm[Hg] Comments: Patient Position: Sitting; Cuff Location: Left Arm; Cuff Size: Large BP Diastolic 76 mm[Hg] Comments: Patient Position: Sitting; Cuff Location: Left Arm; Cuff Size: Large Weight 184 lb Height 0 in Head Circumference 0.00 cm :58 Temperature 98.2 f Comments: Method: Oral Pulse 72 /min Comments: Pattern: Regular Respiration Rate 16 /min Comments: Pattern: Unlabored BP Systolic 128 mm[Hg] Comments: Patient Position: Sitting; Cuff Location: Right Arm; Cuff Size: Standard BP Diastolic 70 mm[Hg] Comments: Patient Position: Sitting; Cuff Location: Right Arm; Cuff Size: Standard Weight 184 lb Height 0 in Head Circumference 0.00 cm :20 Temperature 98.1 f Comments: Method: Oral Pulse 64 /min Comments: Pattern: Regular Respiration Rate 16 /min Comments: Pattern: Unlabored BP Systolic 110 mm[Hg] Comments: Patient Position: Sitting; Cuff Location: Right Arm; Cuff Size: Standard BP Diastolic 74 mm[Hg] Comments: Patient Position: Sitting; Cuff Location: Right Arm; Cuff Size: Standard Weight 177 lb Height 0 in Head Circumference 0.00 cm :34 Temperature 98.7 f Comments: Method: Oral Pulse 84 /min Comments: Pattern: Regular Respiration Rate 16 /min Comments: Pattern: Unlabored BP Systolic 124 mm[Hg] Comments: Patient Position: Sitting; Cuff Location: Right Arm; Cuff Size: Large BP Diastolic 76 mm[Hg] Comments: Patient Position: Sitting; Cuff Location: Right Arm; Cuff Size: Large Weight 0 lb Height 0 in Head Circumference 0.00 cm :14 Temperature 98.6 f Comments: Method: Oral Pulse 74 /min Comments: Pattern: Regular Respiration Rate 18 /min Comments: Pattern: Unlabored BP Systolic 124 mm[Hg] Comments: Patient Position: Sitting; Cuff Location: Left Arm; Cuff Size: Standard BP Diastolic 78 mm[Hg] Comments: Patient Position: Sitting; Cuff Location: Left Arm; Cuff Size: Standard Weight 0 lb Height 0 in Head Circumference 0.00 cm :52 Temperature 98.6 f Comments: Method: Oral Pulse 70 /min Comments: Pattern: Regular Respiration Rate 18 /min Comments: Pattern: Unlabored BP Systolic 124 mm[Hg] Comments: Patient Position: Sitting; Cuff Location: Left Arm; Cuff Size: Standard BP Diastolic 80 mm[Hg] Comments: Patient Position: Sitting; Cuff Location: Left Arm; Cuff Size: Standard Weight 183 lb Height 0 in Head Circumference 0.00 cm :36 Pulse 60 /min Comments: Pattern: Regular Respiration Rate 16 /min Comments: Pattern: Unlabored BP Systolic 142 mm[Hg] Comments: Patient Position: Sitting; Cuff Location: Right Arm; Cuff Size: Standard BP Diastolic 84 mm[Hg] Comments: Patient Position: Sitting; Cuff Location: Right Arm; Cuff Size: Standard Weight 181.125 lb Height 65 in Body Mass Index Calculated 30.14 kg/m2 Body Surface Area Calculated 1.9 m2 Head Circumference 0.00 cm :58 Temperature 97.5 f Comments: Method: Oral Pulse 64 /min Comments: Pattern: Regular Respiration Rate 16 /min Comments: Pattern: Unlabored BP Systolic 114 mm[Hg] Comments: Patient Position: Sitting; Cuff Location: Right Arm; Cuff Size: Large BP Diastolic 86 mm[Hg] Comments: Patient Position: Sitting; Cuff Location: Right Arm; Cuff Size: Large Weight 180 lb Height 65 in Body Mass Index Calculated 29.95 kg/m2 Body Surface Area Calculated 1.89 m2 Head Circumference 0.00 cm :40 Temperature 97.1 f Comments: Method: Oral Pulse 80 /min Comments: Pattern: Regular Respiration Rate 16 /min Comments: Pattern: Unlabored BP Systolic 124 mm[Hg] Comments: Patient Position: Sitting; Cuff Location: Left Arm; Cuff Size: Standard BP Diastolic 82 mm[Hg] Comments: Patient Position: Sitting; Cuff Location: Left Arm; Cuff Size: Standard Weight 0 lb Height 65 in Head Circumference 0.00 cm :28 Temperature 98.7 f Comments: Method: Oral Pulse 68 /min Comments: Pattern: Regular Respiration Rate 16 /min Comments: Pattern: Unlabored BP Systolic 116 mm[Hg] Comments: Patient Position: Sitting; Cuff Location: Right Arm; Cuff Size: Standard BP Diastolic 68 mm[Hg] Comments: Patient Position: Sitting; Cuff Location: Right Arm; Cuff Size: Standard Weight 186.5625 lb Height 65 in Body Mass Index Calculated 31.05 kg/m2 Body Surface Area Calculated 1.92 m2 Head Circumference 0.00 cm :20 Temperature 98.1 f Comments: Method: Oral Pulse 68 /min Comments: Pattern: Regular Respiration Rate 16 /min Comments: Pattern: Unlabored BP Systolic 132 mm[Hg] Comments: Patient Position: Sitting; Cuff Location: Right Arm; Cuff Size: Standard BP Diastolic 84 mm[Hg] Comments: Patient Position: Sitting; Cuff Location: Right Arm; Cuff Size: Standard Weight 187 lb Height 65 in Body Mass Index Calculated 31.12 kg/m2 Body Surface Area Calculated 1.92 m2 Head Circumference 0.00 cm Results Date Description Value Details [id number] URINE MADAY CULTURE-IDENTIFICATN Comments: PATIENT NOT FASTINGPERFORMED BY: WizRocket TechnologiesMatheny Medical and Educational CenterIbbjnd9995 [facility] [id number] Information: SRC:UC ([id number]) Result 1 MUG (Normal) Comments: Mixed urogenital istut504 Colonies/mL Urine Culture,Comprehensive Final report (Normal) [id number]:15 TSH (07370) Comments: PATIENT NOT FASTINGPERFORMED BY: [facility] [id number] [facility] [id number] TSH 1.790 {uIU/mL} (Normal) Range: 0.450-4.500 84-[id number]:15 T4, FREE (THYROXINE) (62746) Comments: PATIENT NOT FASTINGPERFORMED BY: [facility] Vilrzy7936 [facility] [id number] T4,Free(Direct) 1.07 ng/dL (Normal) Range: 0.82-1.77 04-[id number]:15 T3, FREE (TRIDOTHYRONINE) (84352) Comments: PATIENT NOT FASTINGPERFORMED BY: [facility]6370 [facility] [id number] Triiodothyronine (T3), Free 2.7 pg/mL (Normal) Range: 2.0-4.4 96-[id number]:15 Microscopic Examination Comments: PATIENT WAS FASTINGPERFORMED BY: LabLauren Ville [id number] [facility] [id number] Bacteria None seen (Normal) Mucus Threads Present (Normal) Epithelial Cells (non renal) 0-10 {/hpf} (Normal) Range: 0 - 10 RBC 0-2 {/hpf} (Normal) Range: 0 - 2 WBC 0-5 {/hpf} (Normal) Range: 0 - 5 [id number]-[id number]:11 URINE MADAY CULTURE-FARIBA COL Comments: PATIENT NOT FASTINGPERFORMED BY: [facility] Ornfar3440 [facility] [id number] Information: SRC:UC COUNT ([id number]) Antimicrobial MIHEAD (Normal) Comments: S = Susceptible; I = Intermediate; R = Resistant P = Positive; N = Negative MICS are expressed in micrograms per mL Antibiotic RSLT#1 RSLT#2 RS Susceptibility LT#3 RSLT#4Amoxicillin/Clavulanic Acid IAmpicillin RCefepime SCeftriaxone SCefuroxime SCephalothin SCiprofloxacin SErtapenem SGentamicin SImipenem SLevofloxacin SNitrofurantoin SPipera cillin RTetracycline STobramycin STrimethoprim/Sulfa S Result 1 Escherichia coli Comments: 10,000-25,000 colony forming units per mL (Abnormal) Urine Final report Culture,Comprehensive (Abnormal) [id number] Urinalysis, Office ([id number]) UA - LEUKOCYTE ESTERASE Small (Normal) UA - NITRITE Negative (Normal) URINE UROBILINGN FARIBA TIMED Normal mg/dL (Normal) UA - PROTEIN Negative mg/dL (Normal) UA - PH 6 (Abnormal) UA - BLOOD Negative (Normal) UA - SPECIFIC GRAVITY 1.015 (Normal) UA - KETONES Negative mg/dL (Normal) UA - BILIRUBIN Negative (Normal) UA - GLUCOSE Negative (Normal) [id number] URINE MADAY CULTURE-IDENTIFICATN Comments: PERFORMED BY: [facility] [id number] [facility] [id number] Information: SRC:UR (78437) Antimicrobial MIHEAD (Normal) Comments: S = Susceptible; I = Intermediate; R = Resistant P = Positive; N = Negative MICS are expressed in micrograms per mL Antibiotic RSLT#1 RSLT#2 RS Susceptibility LT#3 RSLT#4Amoxicillin/Clavulanic Acid IAmpicillin RCefepime SCeftriaxone SCefuroxime SCephalothin SCiprofloxacin SErtapenem SGentamicin SImipenem SLevofloxacin SNitrofurantoin SPipera cillin RTetracycline STobramycin STrimethoprim/Sulfa S Result 1 Escherichia coli Comments: Greater than 100,000 colony forming units per mL (Abnormal) Urine Final report Culture,Comprehensive (Abnormal) [id number] Urinalysis, Office (07189) UA - LEUKOCYTE ESTERASE Large (Normal) UA - NITRITE Positive (Normal) URINE UROBILINGN FARIBA TIMED 2 mg/dL (Normal) UA - PROTEIN Negative mg/dL (Normal) UA - PH 5.0 (Normal) UA - BLOOD Hemolyzed Small (Normal) UA - SPECIFIC GRAVITY 1.015 (Normal) UA - KETONES Negative mg/dL (Normal) UA - BILIRUBIN Negative (Normal) UA - GLUCOSE Negative (Normal) [id number]-[id number]:12 Rapid Flu (32655 x 2) Influenza A Ag Positive A (Normal) Comments: had flu shot [id number]-[id number]:15 CALCIFIDIOL (52965) VIT D 25 Comments: PATIENT WAS FASTINGPERFORMED BY: [employer] Znkfex1418 [facility] [id number] Vitamin D, 25-Hydroxy 45.6 ng/mL (Normal) Range: 30.0-100.0 Comments: Vitamin D deficiency has been defined by the Vendor ofMet[facility] Medical Centercine and an Endocrine Society practice guideline as alevel of serum 25-OH vitamin D less than 20 ng/mL (1,2).The Endocrine Society went on to further define vitamin Dinsufficiency as a level between 21 and 29 ng/mL (2).1. IOM (Vendor of Medicine). 2010. Dietary reference intakes for calcium and D. [place]: The National Academies Press.2. Dung MF, Ken MCFARLAND, Diego ELMORE, et al. Evaluation, treatment, and prevention of vitamin D deficiency: an Endocrine Society clinical practice guideline. JCEM. 2010; 96(7):1911-30. [id number] TSH (16546) Comments: PATIENT WAS FASTINGPERFORMED BY: [facility]6370 [facility] [id number] TSH 4.170 {uIU/mL} (Normal) Range: 0.450-4.500 [id number]:15 URINALYSIS, W/ MICRO (12491) Comments: PATIENT WAS FASTINGPERFORMED BY: [facility]6370 [facility] [id number] Microscopic Examination See below: (Normal) Comments: Microscopic was indicated and was performed. Microscopic Examination MICRON (Normal) Comments: Microscopic follows if indicated. Nitrite, Urine Negative (Normal) Urobilinogen,Semi-Qn 0.2 mg/dL (Normal) Range: 0.2-1.0 Bilirubin Negative (Normal) Occult Blood Negative (Normal) Ketones Negative (Normal) Glucose Negative (Normal) Protein Negative (Normal) WBC Esterase Negative (Normal) Appearance Clear (Normal) Urine-Color Yellow (Normal) pH 7.0 (Normal) Range: 5.0-7.5 Specific [place] 1.020 (Normal) Range: 1.005-1.030 [id number]:15 MICROALBUMIN: CREATININE RATIO Comments: PATIENT WAS FASTINGPERFORMED BY: [facility]6370 [facility] [id number] ([id number]) AND (20741) Alb/Creat Ratio 17.8 {mg/g_creat} (Normal) Range: 0.0-30.0 Albumin, Urine 25.9 ug/mL (Normal) Creatinine, Urine 145.6 mg/dL (Normal) [id number] METABOLIC PANEL, COMPREHENSIVE Comments: PATIENT WAS FASTINGPERFORMED BY: [facility]6370 [facility] [id number] (92352) ALT (SGPT) 15 [iU]/L (Normal) Range: 0-32 AST (SGOT) 19 [iU]/L (Normal) Range: 0-40 Alkaline Phosphatase 99 [iU]/L (Normal) Range: 39-117 Bilirubin, Total 0.4 mg/dL (Normal) Range: 0.0-1.2 A/G Ratio 1.5 (Normal) Range: 1.2-2.2 Globulin, Total 2.6 g/dL (Normal) Range: 1.5-4.5 Albumin 4.0 g/dL (Normal) Range: 3.6-4.8 Protein, Total 6.6 g/dL (Normal) Range: 6.0-8.5 Calcium 9.3 mg/dL (Normal) Range: 8.7-10.3 Carbon Dioxide, Total 26 mmol/L (Normal) Range: 18-29 Chloride 100 mmol/L (Normal) Range: 96-106 Potassium 4.8 mmol/L (Normal) Range: 3.5-5.2 Sodium 141 mmol/L (Normal) Range: 134-144 BUN/Creatinine Ratio 19 (Normal) Range: 12-28 eGFR If Africn Am 65 mL/min/1.73 (Normal) eGFR If NonAfricn Am 56 mL/min/1.73 (Abnormal) Creatinine 1.02 mg/dL (Abnormal) Range: 0.57-1.00 BUN 19 mg/dL (Normal) Range: 8-27 Glucose 83 mg/dL (Normal) Range: 65-99 [id number]:15 LIPID PANEL (71776) Comments: PATIENT WAS FASTINGPERFORMED BY: [facility] [id number] LDL/HDL Ratio 1.3 {ratio} (Normal) Range: 0.0-3.2 Comments: LDL/HDL Ratio Men Women 1/2 Avg.Risk 1.0 1.5 Av g.Risk 3.6 3.2 2X Avg.Risk 6.2 5.0 3X Avg.Risk 8.0 6.1 LDL Cholesterol Calc 94 mg/dL (Normal) Range: 0-99 VLDL Cholesterol Gabriel 17 mg/dL (Normal) Range: 5-40 HDL Cholesterol 72 mg/dL (Normal) Triglycerides 86 mg/dL (Normal) Range: 0-149 Cholesterol, Total 183 mg/dL (Normal) Range: 100-199 25-Svi-958590:15 CBC W/AUTO DIFF WBC (84546) Comments: PATIENT WAS FASTINGPERFORMED BY: IQ Elite70 [facility] [id number] Immature Grans (Abs) 0.0 {x10E3/uL} (Normal) Range: 0.0-0.1 Immature Granulocytes 0 % (Normal) Baso (Absolute) 0.0 {x10E3/uL} (Normal) Range: 0.0-0.2 Eos (Absolute) 0.2 {x10E3/uL} (Normal) Range: 0.0-0.4 Monocytes(Absolute) 0.8 {x10E3/uL} (Normal) Range: 0.1-0.9 Lymphs (Absolute) 1.9 {x10E3/uL} (Normal) Range: 0.7-3.1 Neutrophils (Absolute) 3.9 {x10E3/uL} (Normal) Range: 1.4-7.0 Basos 1 % (Normal) Eos 3 % (Normal) Monocytes 11 % (Normal) Lymphs 28 % (Normal) Neutrophils 57 % (Normal) Platelets 297 {x10E3/uL} (Normal) Range: 150-379 RDW 14.2 % (Normal) Range: 12.3-15.4 MCHC 33.3 g/dL (Normal) Range: 31.5-35.7 MCH 30.5 pg (Normal) Range: 26.6-33.0 MCV 92 fL (Normal) Range: 79-97 Hematocrit 40.6 % (Normal) Range: 34.0-46.6 Hemoglobin 13.5 g/dL (Normal) Range: 11.1-15.9 RBC 4.43 {x10E6/uL} (Normal) Range: 3.77-5.28 WBC 6.8 {x10E3/uL} (Normal) Range: 3.4-10.8 37-Jio-27860:35 URINE MADAY CULTURE-IDENTIFICATN Comments: PATIENT NOT FASTINGPERFORMED BY: [facility] Bpobdw0869 [facility] [id number] Information: SRC:JUDI (34859) Antimicrobial MIHEAD (Normal) Comments: S = Susceptible; I = Intermediate; R = Resistant P = Positive; N = Negative MICS are expressed in micrograms per mL Antibiotic RSLT#1 RSLT#2 RS Susceptibility LT#3 RSLT#4Amoxicillin/Clavulanic Acid IAmpicillin RCefepime SCeftriaxone SCefuroxime SCephalothin SCiprofloxacin SErtapenem SGentamicin SImipenem SLevofloxacin SNitrofurantoin SPipera cillin RTetracycline STobramycin STrimethoprim/Sulfa S Result 1 Escherichia coli Comments: 200 Colonies/mL . (Abnormal) Urine Final report Culture,Comprehensive (Abnormal) [id number]-Sdq-[id number]:51 Urinalysis, Office (72504) UA - LEUKOCYTE ESTERASE Moderate (Normal) UA - NITRITE Negative (Normal) URINE UROBILINGN FARIBA TIMED Normal mg/dL (Normal) UA - PROTEIN Negative mg/dL (Normal) UA - PH 6.5 (Normal) UA - BLOOD Negative (Normal) UA - SPECIFIC GRAVITY 1.005 (Normal) UA - KETONES Negative mg/dL (Normal) UA - BILIRUBIN Negative (Normal) UA - GLUCOSE Negative (Normal) :38 Microscopic Examination Comments: PATIENT WAS FASTINGPERFORMED BY: [facility] [id number] Bacteria None seen (Normal) Mucus Threads Present (Normal) Cast Type Hyaline casts (Normal) Casts Present {/lpf} (Abnormal) Epithelial Cells (non renal) 0-10 {/hpf} (Normal) Range: 0 - 10 RBC None seen {/hpf} (Normal) Range: 0 - 2 WBC 0-5 {/hpf} (Normal) Range: 0 - 5 :38 TSH (41843) Comments: PATIENT WAS FASTINGPERFORMED BY: [facility] [id number] TSH 2.710 {uIU/mL} (Normal) Range: 0.450-4.500 :38 T4, FREE (THYROXINE) (87956) Comments: PATIENT WAS FASTINGPERFORMED BY: [facility] [id number] T4,Free(Direct) 1.21 ng/dL (Normal) Range: 0.82-1.77 :38 T3, FREE (TRIDOTHYRONINE) (23869) Comments: PATIENT WAS FASTINGPERFORMED BY: [facility] [id number] Triiodothyronine,Free,Serum 2.8 pg/mL (Normal) Range: 2.0-4.4 :38 URINALYSIS, W/ MICRO (79773) Comments: PATIENT WAS FASTINGPERFORMED BY: [employer] Lsqoyw7126 [facility] [id number] Microscopic Examination See below: (Normal) Comments: Microscopic was indicated and was performed. Microscopic Examination MICRON (Normal) Comments: Microscopic follows if indicated. Nitrite, Urine Negative (Normal) Urobilinogen,Semi-Qn 0.2 mg/dL (Normal) Range: 0.2-1.0 Bilirubin Negative (Normal) Occult Blood Negative (Normal) Ketones Negative (Normal) Glucose Negative (Normal) Protein Negative (Normal) WBC Esterase Negative (Normal) Appearance Clear (Normal) Urine-Color Yellow (Normal) pH 7.0 (Normal) Range: 5.0-7.5 Specific [place] 1.017 (Normal) Range: 1.005-1.030 :38 MICROALBUMIN: CREATININE RATIO Comments: PATIENT WAS FASTINGPERFORMED BY: [employer] Zvznca8838 [facility] [id number] (37758) AND (87384) Microalb/Creat Ratio 5.3 {mg/g_creat} (Normal) Range: 0.0-30.0 Microalbumin, Urine 4.6 ug/mL (Normal) Creatinine, Urine 87.1 mg/dL (Normal) :38 METABOLIC PANEL, COMPREHENSIVE Comments: PATIENT WAS FASTINGPERFORMED BY: [employer] Wssvou8155 [facility] [id number] (10185) ALT (SGPT) 14 [iU]/L (Normal) Range: 0-32 AST (SGOT) 16 [iU]/L (Normal) Range: 0-40 Alkaline Phosphatase, S 118 [iU]/L (Abnormal) Range: 39-117 Bilirubin, Total 0.4 mg/dL (Normal) Range: 0.0-1.2 A/G Ratio 1.8 (Normal) Range: 1.2-2.2 Globulin, Total 2.4 g/dL (Normal) Range: 1.5-4.5 Albumin, Serum 4.2 g/dL (Normal) Range: 3.6-4.8 Protein, Total, Serum 6.6 g/dL (Normal) Range: 6.0-8.5 Calcium, Serum 9.7 mg/dL (Normal) Range: 8.7-10.3 Carbon Dioxide, Total 26 mmol/L (Normal) Range: 18-29 Chloride, Serum 100 mmol/L (Normal) Range: 96-106 Potassium, Serum 5.0 mmol/L (Normal) Range: 3.5-5.2 Sodium, Serum 142 mmol/L (Normal) Range: 134-144 BUN/Creatinine Ratio 18 (Normal) Range: 12-28 eGFR If Africn Am 73 mL/min/1.73 (Normal) eGFR If NonAfricn Am 63 mL/min/1.73 (Normal) Creatinine, Serum 0.93 mg/dL (Normal) Range: 0.57-1.00 BUN 17 mg/dL (Normal) Range: 8-27 Glucose, Serum 95 mg/dL (Normal) Range: 65-99 :38 CBC W/AUTO DIFF WBC (95336) Comments: PATIENT WAS FASTINGPERFORMED BY: [facility] Lrcifr4022 [facility] [id number] Immature Grans (Abs) 0.0 {x10E3/uL} (Normal) Range: 0.0-0.1 Immature Granulocytes 0 % (Normal) Baso (Absolute) 0.1 {x10E3/uL} (Normal) Range: 0.0-0.2 Eos (Absolute) 0.3 {x10E3/uL} (Normal) Range: 0.0-0.4 Monocytes(Absolute) 0.7 {x10E3/uL} (Normal) Range: 0.1-0.9 Lymphs (Absolute) 2.6 {x10E3/uL} (Normal) Range: 0.7-3.1 Neutrophils (Absolute) 3.5 {x10E3/uL} (Normal) Range: 1.4-7.0 Basos 1 % (Normal) Eos 4 % (Normal) Monocytes 10 % (Normal) Lymphs 36 % (Normal) Neutrophils 49 % (Normal) Platelets 317 {x10E3/uL} (Normal) Range: 150-379 RDW 13.9 % (Normal) Range: 12.3-15.4 MCHC 32.8 g/dL (Normal) Range: 31.5-35.7 MCH 30.8 pg (Normal) Range: 26.6-33.0 MCV 94 fL (Normal) Range: 79-97 Hematocrit 42.1 % (Normal) Range: 34.0-46.6 Hemoglobin 13.8 g/dL (Normal) Range: 11.1-15.9 RBC 4.48 {x10E6/uL} (Normal) Range: 3.77-5.28 WBC 7.1 {x10E3/uL} (Normal) Range: 3.4-10.8 :38 LIPID PANEL (88778) Comments: PATIENT WAS FASTINGPERFORMED BY: [employer]iz[employer] TechnologiesMatheny Medical and Educational CenterWjbbjc6546 [facility] [id number] LDL/HDL Ratio 1.4 {ratio_units} (Normal) Range: 0.0-3.2 Comments: LDL/HDL Ratio Men Women 1/2 Avg.Risk 1.0 1.5 Av g.Risk 3.6 3.2 2X Avg.Risk 6.2 5.0 3X Avg.Risk 8.0 6.1 LDL Cholesterol Calc 96 mg/dL (Normal) Range: 0-99 VLDL Cholesterol Gabriel 21 mg/dL (Normal) Range: 5-40 HDL Cholesterol 70 mg/dL (Normal) Triglycerides 104 mg/dL (Normal) Range: 0-149 Cholesterol, Total 187 mg/dL (Normal) Range: 100-199 :38 CALCIFIDIOL (55453) VIT D 25 Comments: PATIENT WAS FASTINGPERFORMED BY: [facility]6370 [facility] [id number] Vitamin D, 25-Hydroxy 49.1 ng/mL (Normal) Range: 30.0-100.0 Comments: Vitamin D deficiency has been defined by the Vendor ofMedicine and an Endocrine Society practice guideline as alevel of serum 25-OH vitamin D less than 20 ng/mL (1,2).The Endocrine Society went on to further define vitamin Dinsufficiency as a level between 21 and 29 ng/mL (2).1. IOM (Vendor of Medicine). 2010. Dietary reference intakes for calcium and D. [place]: The National Academies Press.2. Dung MF, Ken NC, Diego ELMORE, et al. Evaluation, treatment, and prevention of vitamin D deficiency: an Endocrine Society clinical practice guideline. JCEM. 2010; 96(7):1911-30. :11 URINE MADAY CULTURE-IDENTIFICATN Comments: PATIENT NOT FASTINGPERFORMED BY: [address] [id number] Information: SRC:UC (90176) Result 1 MUG (Normal) Comments: Mixed urogenital flora25,000-50,000 colony forming units per mL Urine Final report (Normal) Culture,Comprehensive :26 Urinalysis, Office (86585) UA - LEUKOCYTE ESTERASE Small (Normal) UA - NITRITE Negative (Normal) URINE UROBILINGN FARIBA TIMED Normal mg/dL (Normal) UA - PROTEIN Negative mg/dL (Normal) UA - PH 7 (Normal) UA - BLOOD Negative (Normal) UA - SPECIFIC GRAVITY 1.025 (Normal) UA - KETONES Negative mg/dL (Normal) UA - BILIRUBIN Negative (Normal) UA - GLUCOSE Negative (Normal) :24 Fecal Occult Blood , Office (66946) Fecal Occult Blood , Office (Inhouse) negative (Normal) :54 Fecal Occult Blood , Office (16124) Fecal Occult Blood , Office (Inhouse) positive (Normal) :24 Angiotensin Convert Enzyme Comments: [facility] (refer to report for specific site)refer to report for address and phone number [phone] U/L (Normal) Range: 14-82 Comments: Performed at: [address] [id number] Director: John Paul Burrows PhD, Phone: [phone] 98-Sqm-944965:24 Erythrocyte Sed Rate Comments: [facility] Ufvprjaanz[address] [place], [address] SED RATE 9 mm/h (Normal) Range: 0-30 :06 Microscopic Examination Comments: PATIENT WAS FASTINGPERFORMED BY: [address] [id number] Bacteria Moderate (Abnormal) Mucus Threads Present (Normal) Epithelial Cells (non renal) 0-10 {/hpf} (Normal) Range: 0 - 10 RBC 0-2 {/hpf} (Normal) Range: 0 - 2 WBC 11-30 {/hpf} (Abnormal) Range: 0 - 5 :06 CALCIFEDIOL (45890) Comments: PATIENT WAS FASTINGPERFORMED BY: [employer]iz[employer] TechnologiesMatheny Medical and Educational CenterDxndej3102 [facility] [id number] Vitamin D, 25-Hydroxy 48.3 ng/mL (Normal) Range: 30.0-100.0 Comments: Vitamin D deficiency has been defined by the Vendor ofMedicine and an Endocrine Society practice guideline as alevel of serum 25-OH vitamin D less than 20 ng/mL (1,2).The Endocrine Society went on to further define vitamin Dinsufficiency as a level between 21 and 29 ng/mL (2).1. IOM (Vendor of Medicine). 2010. Dietary reference intakes for calcium and D. [place]: The National Academies Press.2. Dung MF, Ken MCFARLAND, Diego ELMORE, et al. Evaluation, treatment, and prevention of vitamin D deficiency: an Endocrine Society clinical practice guideline. JCEM. 2010; 96(7):1911-30. 04-Xfh-95731:06 TSH (THYROID STIMULATING Comments: PATIENT WAS FASTINGPERFORMED BY: [facility]6370 [facility] [id number] HORMONE) (99325) TSH 3.690 {uIU/mL} (Normal) Range: 0.450-4.500 :06 URINALYSIS (71286) Comments: PATIENT WAS FASTINGPERFORMED BY: [facility]6370 [facility] [id number] Microscopic Examination See below: (Normal) Comments: Microscopic was indicated and was performed. Nitrite, Urine Negative (Normal) Urobilinogen,Semi-Qn 0.2 mg/dL (Normal) Range: 0.2-1.0 Bilirubin Negative (Normal) Occult Blood Negative (Normal) Ketones Negative (Normal) Glucose Negative (Normal) Protein Negative (Normal) WBC Esterase 3+ (Abnormal) Appearance Clear (Normal) Urine-Color Yellow (Normal) pH 7.5 (Normal) Range: 5.0-7.5 Specific [place] 1.017 (Normal) Range: 1.005-1.030 39-Sfl-50864:06 Lipid Panel (82539) Comments: PATIENT WAS FASTINGPERFORMED BY: WizRocket TechnologiesMatheny Medical and Educational CenterWvzohq1733 [facility] [id number] LDL/HDL Ratio 1.5 {ratio_units} (Normal) Range: 0.0-3.2 Comments: LDL/HDL Ratio Men Women 1/2 Avg.Risk 1.0 1.5 Av g.Risk 3.6 3.2 2X Avg.Risk 6.2 5.0 3X Avg.Risk 8.0 6.1 LDL Cholesterol Calc 105 mg/dL (Abnormal) Range: 0-99 VLDL Cholesterol Gabriel 16 mg/dL (Normal) Range: 5-40 HDL Cholesterol 69 mg/dL (Normal) Comments: According to ATP-III Guidelines, HDL-C >59 mg/dL is considered anegative risk factor for CHD. Triglycerides 81 mg/dL (Normal) Range: 0-149 Cholesterol, Total 190 mg/dL (Normal) Range: 100-199 :06 Metabolic Panel, Comprehensive Comments: PATIENT WAS FASTINGPERFORMED BY: WizRocket TechnologiesMatheny Medical and Educational CenterUghgdo0228 [facility] [id number] (66455) ALT (SGPT) 13 [iU]/L (Normal) Range: 0-32 AST (SGOT) 17 [iU]/L (Normal) Range: 0-40 Alkaline Phosphatase, S 113 [iU]/L (Normal) Range: 39-117 Bilirubin, Total 0.2 mg/dL (Normal) Range: 0.0-1.2 A/G Ratio 1.7 (Normal) Range: 1.1-2.5 Globulin, Total 2.3 g/dL (Normal) Range: 1.5-4.5 Albumin, Serum 3.9 g/dL (Normal) Range: 3.6-4.8 Protein, Total, Serum 6.2 g/dL (Normal) Range: 6.0-8.5 Calcium, Serum 8.5 mg/dL (Abnormal) Range: 8.7-10.3 Carbon Dioxide, Total 26 mmol/L (Normal) Range: 18-29 Chloride, Serum 102 mmol/L (Normal) Range: 97-108 Potassium, Serum 4.7 mmol/L (Normal) Range: 3.5-5.2 Sodium, Serum 141 mmol/L (Normal) Range: 134-144 BUN/Creatinine Ratio 23 (Normal) Range: 11-26 eGFR If Africn Am 85 mL/min/1.73 (Normal) eGFR If NonAfricn Am 74 mL/min/1.73 (Normal) Creatinine, Serum 0.82 mg/dL (Normal) Range: 0.57-1.00 BUN 19 mg/dL (Normal) Range: 8-27 Glucose, Serum 93 mg/dL (Normal) Range: 65-99 63-Map-09011:06 CBC WITH MANUAL DIFF Comments: PATIENT WAS FASTINGPERFORMED BY: LabCoMatheny Medical and Educational CenterSmerdm8980 [facility] [id number] Information: [id number] (34441) Immature Grans (Abs) 0.0 {x10E3/uL} (Normal) Range: 0.0-0.1 Immature Granulocytes 0 % (Normal) Baso (Absolute) 0.0 {x10E3/uL} (Normal) Range: 0.0-0.2 Eos (Absolute) 0.3 {x10E3/uL} (Normal) Range: 0.0-0.4 Monocytes(Absolute) 0.6 {x10E3/uL} (Normal) Range: 0.1-0.9 Lymphs (Absolute) 2.5 {x10E3/uL} (Normal) Range: 0.7-3.1 Neutrophils (Absolute) 2.8 {x10E3/uL} (Normal) Range: 1.4-7.0 Basos 1 % (Normal) Eos 5 % (Normal) Monocytes 10 % (Normal) Lymphs 40 % (Normal) Neutrophils 44 % (Normal) Platelets 294 {x10E3/uL} (Normal) Range: 150-379 RDW 13.7 % (Normal) Range: 12.3-15.4 MCHC 32.2 g/dL (Normal) Range: 31.5-35.7 MCH 30.1 pg (Normal) Range: 26.6-33.0 MCV 93 fL (Normal) Range: 79-97 Hematocrit 39.4 % (Normal) Range: 34.0-46.6 Hemoglobin 12.7 g/dL (Normal) Range: 11.1-15.9 RBC 4.22 {x10E6/uL} (Normal) Range: 3.77-5.28 WBC 6.4 {x10E3/uL} (Normal) Range: 3.4-10.8 :06 MICROALBUMIN: CREATININE RATIO Comments: PATIENT WAS FASTINGPERFORMED BY: [address] [id number] (31203) AND (63318) Microalb/Creat Ratio 4.3 {mg/g_creat} (Normal) Range: 0.0-30.0 Microalbumin, Urine 3.4 ug/mL (Normal) Creatinine, Urine 78.2 mg/dL (Normal) 9-Cdh-360580:22 ANGTENSIN 1-CONVRT ENZYM Comments: PATIENT NOT FASTINGPERFORMED BY: [facility]6370 [facility] [id number] Information: [id number] (61178) ART 61 U/L (Normal) Range: 14-82 3-Unb-275443:22 SED RATE ERYTHROCYTE (40400) Comments: PATIENT NOT FASTINGPERFORMED BY: [facility]6370 [facility] [id number] Sedimentation Rate-Westergren 7 mm/h (Normal) Range: 0-40 8-Sjg-899270:22 C-REACTIVE PROTEIN (40544) Comments: PATIENT NOT FASTINGPERFORMED BY: [facility]6370 [facility] [id number]; non- emergent till apt C-Reactive Protein, Quant 2.2 mg/L (Normal) Range: 0.0-4.9 95-Kur-254567:13 Rapid Flu (76220 x 2) Influenza A Ag negative a/b (Normal) 2-Zmf-123706:37 URINE MADAY CULTURE (FARIBA Comments: PATIENT NOT FASTINGPERFORMED BY: [address] [id number] Information: SRC:[facility] [place] [id number] COL COUNT) (37809) Result 1 MUG (Normal) Comments: Mixed urogenital flora2,000 Colonies/mL Urine Culture,Comprehensive Final report (Normal) 2-Nos-804666:15 Urinalysis, Office (07157) UA - LEUKOCYTE ESTERASE Negative (Normal) UA - NITRITE Negative (Normal) URINE UROBILINGN FARIBA TIMED Normal mg/dL (Normal) UA - PROTEIN Negative mg/dL (Normal) UA - PH 6 (Abnormal) UA - BLOOD Negative (Normal) UA - SPECIFIC GRAVITY 1.020 (Normal) UA - KETONES Negative mg/dL (Normal) UA - BILIRUBIN Negative (Normal) UA - GLUCOSE Negative (Normal) :42 Comprehensive Metabolic Profil Comments: [facility] [address] [place], [address] GAP 4 (Abnormal) Range: 5-15 CO2 30.0 mmol/L (Normal) Range: 21.0-32.0 CL 108 mmol/L (Abnormal) Range: 98-107 K 4.5 mmol/L (Normal) Range: 3.5-5.1 NA 142 mmol/L (Normal) Range: 136-145 T BILI 0.40 mg/dL (Normal) Range: 0.20-1.00 ALT 28 U/L (Normal) Range: 12-78 ALK P 124 U/L (Normal) Range: 50-136 AST 25 U/L (Normal) Range: 15-37 CA 8.3 mg/dL (Abnormal) Range: 8.5-10.1 A/G 1.0 {RATIO} (Normal) Range: 0.9-2.4 GLOB 3.4 g/dL (Normal) Range: 2.3-3.5 ALB 3.5 g/dL (Normal) Range: 3.4-5.0 T PROT 6.9 g/dL (Normal) Range: 6.4-8.2 BUN/CRE 16.0 {RATIO} (Normal) Range: 10-20 EST GFR - AA 71 mL/min (Normal) Comments: GFR Calc EST GFR 59 mL/min (Abnormal) Comments: Non- GFR Calc CREAT,SERUM 1.00 mg/dL (Normal) Range: 0.55-1.20 Comments: The validity of the calculated GFR AND GFRAA in patients over70 years has not been determined. Clinical correlation isessential. BUN 16 mg/dL (Normal) Range: 7-18 GLU 93 mg/dL (Normal) Range: 70-110 12-Nxc-19943:42 Lipid Profile Comments: [facility] [address]it[address] [place], [place], [address] ; non-emergent till apt VLDL 35 mg/dL (Normal) Range: 5-40 LDL 104 mg/dL (Normal) Range: 0-130 HDL 67 mg/dL (Normal) Comments: Reference Range HDL <40 mg/dL Low HDL Cholesterol HDL >or= 60 mg/dL High HDL Cholesterol TRIG 173 mg/dL (Normal) Comments: Serum Triglycerides Reference Interval Normal <150 mg/dL Borderline high 150 - 199 mg/dL High 200 - 499 mg/dL Very High > or = 500 mg/dL CHOL 206 mg/dL (Abnormal) Comments: <200 mg/dL Desirable 200-240 mg/dL Borderline >240 mg/dL High Risk :42 Vitamin D,25 Hydroxy Comments: [facility] [address] [place], [place], [address] Vitamin D 25-OH 31.7 ng/mL (Normal) Comments: Vitamin D 25(OH) Status Range Deficiency <20 ng/mL (50nmol/L) Insuffciency 20 - 30 ng/mL (50 - 75 nmol/L) Sufficiency 30 - 100 ng/mL (75 - 250 nmol/L) Toxicity >100 ng/mL (>250 nmol/L) 89-Xse-561959:26 Pap IG (Image Comments: Source.............Cervical;EndocervicalNo. of containers..01 CYTYC Thin Prep VialPATIENT NOT FASTINGPERFORMED BY: =G [facility] [address] [id number] BY: WB L Guided) [facility] [address] [id number] Note: PAPSMR (Normal) Comments: The Pap smear is a screening test designed to aid in the detection ofpremalignant and malignant conditions of the uterine cervix. It is not adiagnostic procedure and should not be used as the sole mean s of detectingcervical cancer. Both false-positive and false-negative reports do occur. .This liquid based ThinPrep(R) pap test w as screened with theuse of an image guided system. See Note . (Normal) DIAGNOSIS: SPRCS (Normal) Comments: NEGATIVE FOR INTRAEPITHELIAL LESION AND MALIGNANCY.CELLULAR CHANGES ASSOCIATED WITH ATROPHY ARE PRESENT.Satisfactory for evaluation. Endocervical component may not bedistinguished in cases of atrophy.V 76.2 ; Screening for malignant neoplasm of the cervixRenetta Medina, Appliance Sales Associate (ASCP) 01-Wgd-523753:26 Thin Prep Pap Comments: Source.............Cervical;EndocervicalNo. of containers..01 CYTYC Thin Prep VialPATIENT NOT FASTINGPERFORMED BY: =G Zuz[place]ton120 [facility] [id number] BY: VICKI Beal (76119) abCmargret Bswkeyuxcp955 [facility] [id number] Information: [id number] Age Gdln ACOG Testing AGE4 (Normal) Comments: <21 or >65 or no age provided 36-Rop-83326:08 Rapid Strep Test, Office (40122) Comments: neg Rapid Strep Test, Office Negative (Normal) 93-Mnm-93893:26 Microscopic Examination Comments: PATIENT WAS FASTINGPERFORMED BY: [facility] [place] [id number] Bacteria None seen (Normal) Mucus Threads Present (Normal) Epithelial Cells (non renal) 0-10 {/hpf} (Normal) Range: 0 - 10 RBC 0-2 {/hpf} (Normal) Range: 0 - 2 WBC 0-5 {/hpf} (Normal) Range: 0 - 5 51-Utd-030331:02 URINE MADAY CULTURE-FARIBA COL Comments: PERFORMED BY: [employer] [place] [id number] COUNT (61778) Result 1 MUG (Normal) Comments: Mixed urogenital flora10,000-25,000 colony forming units per mL Urine Final report (Normal) Culture,Comprehensive 13-Tdd-633089:00 Urinalysis, Office (79410) UA - LEUKOCYTE ESTERASE Negative (Normal) UA - NITRITE Negative (Normal) URINE UROBILINGN FARIBA TIMED Normal mg/dL (Normal) UA - PROTEIN Negative mg/dL (Normal) UA - PH 7.0 (Normal) UA - BLOOD non-hemolyzed trace (Normal) UA - SPECIFIC GRAVITY 1.010 (Normal) UA - KETONES Negative mg/dL (Normal) UA - BILIRUBIN Negative (Normal) UA - GLUCOSE Negative (Normal) :26 METABOLIC PANEL, Comments: PATIENT WAS FASTINGPERFORMED BY: [facility] [id number] Information: [id number] COMPREHENSIVE (14935) ALT (SGPT) 27 [iU]/L (Normal) Range: 0-32 AST (SGOT) 26 [iU]/L (Normal) Range: 0-40 Alkaline Phosphatase, S 115 [iU]/L (Normal) Range: 39-117 Bilirubin, Total 0.5 mg/dL (Normal) Range: 0.0-1.2 A/G Ratio 1.7 (Normal) Range: 1.1-2.5 Globulin, Total 2.3 g/dL (Normal) Range: 1.5-4.5 Albumin, Serum 3.9 g/dL (Normal) Range: 3.6-4.8 Protein, Total, Serum 6.2 g/dL (Normal) Range: 6.0-8.5 Calcium, Serum 9.1 mg/dL (Normal) Range: 8.7-10.3 Carbon Dioxide, Total 25 mmol/L (Normal) Range: 18-29 Chloride, Serum 102 mmol/L (Normal) Range: 97-108 Potassium, Serum 5.0 mmol/L (Normal) Range: 3.5-5.2 Sodium, Serum 142 mmol/L (Normal) Range: 134-144 BUN/Creatinine Ratio 19 (Normal) Range: 11-26 eGFR If Africn Am 79 mL/min/1.73 (Normal) eGFR If NonAfricn Am 68 mL/min/1.73 (Normal) Creatinine, Serum 0.88 mg/dL (Normal) Range: 0.57-1.00 BUN 17 mg/dL (Normal) Range: 8-27 Glucose, Serum 88 mg/dL (Normal) Range: 65-99 00-Kag-55254:26 URINALYSIS, W/ MICRO (94506) Comments: PATIENT WAS FASTINGPERFORMED BY: [facility] [place] [id number] Microscopic Examination See below: (Normal) Comments: Microscopic was indicated and was performed. Microscopic Examination MICRON (Normal) Comments: Microscopic follows if indicated. Nitrite, Urine Negative (Normal) Urobilinogen,Semi-Qn 0.2 mg/dL (Normal) Range: 0.0-1.9 Bilirubin Negative (Normal) Occult Blood Negative (Normal) Ketones Negative (Normal) Glucose Negative (Normal) Protein Negative (Normal) WBC Esterase Negative (Normal) Appearance Clear (Normal) Urine-Color Yellow (Normal) pH 7.0 (Normal) Range: 5.0-7.5 Specific [place] 1.023 (Normal) Range: 1.005-1.030 :26 TSH (21981) Comments: PATIENT WAS FASTINGPERFORMED BY: [employer] Owgzwm2706 [facility] [id number] TSH 3.170 {uIU/mL} (Normal) Range: 0.450-4.500 :26 Vitamin D Hydroxy (35863) Comments: PATIENT WAS FASTINGPERFORMED BY: [employer] [id number] [facility] [id number] Vitamin D, 25-Hydroxy 34.3 ng/mL (Normal) Range: 30.0-100.0 Comments: Vitamin D deficiency has been defined by the Vendor ofMedicine and an Endocrine Society practice guideline as alevel of serum 25-OH vitamin D less than 20 ng/mL (1,2).The Endocrine Society went on to further define vitamin Dinsufficiency as a level between 21 and 29 ng/mL (2).1. IOM (Vendor of Medicine). 2010. Dietary reference intakes for calcium and D. [place]: The National Academies Press.2. Dung MF, Ken [place], [place] ELMORE, et al. Evaluation, treatment, and prevention of vitamin D deficiency: an Endocrine Society clinical practice guideline. JCEM. 2010; 96(7):1911-30. :26 LIPID PANEL ([id number]) Comments: PATIENT WAS FASTINGPERFORMED BY: [employer] [id number] [facility] [id number]; will review at 04/11 appt LDL/HDL Ratio 1.6 {ratio_units} (Normal) Range: 0.0-3.2 Comments: LDL/HDL Ratio Men Women 1/2 Avg.Risk 1.0 1.5 Av g.Risk 3.6 3.2 2X Avg.Risk 6.2 5.0 3X Avg.Risk 8.0 6.1 LDL Cholesterol Calc 117 mg/dL (Abnormal) Range: 0-99 VLDL Cholesterol [place] 30 mg/dL (Normal) Range: 5-40 HDL Cholesterol 71 mg/dL (Normal) Comments: According to ATP-III Guidelines, HDL-C >59 mg/dL is considered anegative risk factor for CHD. Triglycerides 151 mg/dL (Abnormal) Range: 0-149 Cholesterol, Total 218 mg/dL (Abnormal) Range: 100-199 :31 Vitamin D Hydroxy (00613) Comments: PATIENT WAS FASTINGPERFORMED BY: [facility]UNC [facility] [id number] Vitamin D, 25-Hydroxy 35.2 ng/mL (Normal) Range: 30.0-100.0 Comments: Vitamin D deficiency has been defined by the Vendor ofMedicine and an Endocrine Society practice guideline as alevel of serum 25-OH vitamin D less than 20 ng/mL (1,2).The Endocrine Society went on to further define vitamin Dinsufficiency as a level between 21 and 29 ng/mL (2).1. IOM (Vendor of Medicine). 2010. Dietary reference intakes for calcium and D. [place]: The National Academies Press.2. Dung MF, Ken MCFARLAND, Diego ELMORE, et al. Evaluation, treatment, and prevention of vitamin D deficiency: an Endocrine Society clinical practice guideline. JCEM. 2010; 96(7):1911-30. :31 TSH (10782) Comments: PATIENT WAS FASTINGPERFORMED BY: [employer] Lllrkc4579 [facility]osticsUNC [facility] [id number] TSH 3.100 {uIU/mL} (Normal) Range: 0.450-4.500 :31 MICROALBUMIN: CREATININE RATIO Comments: PATIENT WAS FASTINGPERFORMED BY: [employer] Phtlgc1511 [facility] [id number] ([id number]) AND (71596) Microalb/Creat Ratio 2.0 {mg/g_creat} (Normal) Range: 0.0-30.0 Microalbumin, Urine 3.8 ug/mL (Normal) Range: 0.0-17.0 Creatinine, Urine 189.7 mg/dL (Normal) Range: 15.0-278.0 69-Bnx-45027:31 CBC WITH MANUAL DIFF Comments: PATIENT WAS FASTINGPERFORMED BY: JAMES [facility] Xempgw3832 [facility] [id number] Information: [id number] ([id number]) Immature Grans (Abs) 0.0 {x10E3/uL} (Normal) Range: 0.0-0.1 Immature Granulocytes 0 % (Normal) Range: 0-2 Baso (Absolute) 0.0 {x10E3/uL} (Normal) Range: 0.0-0.2 Eos (Absolute) 0.3 {x10E3/uL} (Normal) Range: 0.0-0.4 Monocytes(Absolute) 0.7 {x10E3/uL} (Normal) Range: 0.1-0.9 Lymphs (Absolute) 2.4 {x10E3/uL} (Normal) Range: 0.7-3.1 Neutrophils (Absolute) 3.5 {x10E3/uL} (Normal) Range: 1.4-7.0 Basos 0 % (Normal) Range: 0-3 Eos 4 % (Normal) Range: 0-5 Monocytes 10 % (Normal) Range: 4-12 Lymphs 35 % (Normal) Range: 14-46 Neutrophils 51 % (Normal) Range: 40-74 Platelets 290 {x10E3/uL} (Normal) Range: 150-379 RDW 13.5 % (Normal) Range: 12.3-15.4 MCHC 33.5 g/dL (Normal) Range: 31.5-35.7 MCH 30.7 pg (Normal) Range: 26.6-33.0 MCV 92 fL (Normal) Range: 79-97 Hematocrit 41.2 % (Normal) Range: 34.0-46.6 Hemoglobin 13.8 g/dL (Normal) Range: 11.1-15.9 RBC 4.50 {x10E6/uL} (Normal) Range: 3.77-5.28 WBC 6.9 {x10E3/uL} (Normal) Range: 3.4-10.8 :31 METABOLIC PANEL, COMPREHENSIVE Comments: PATIENT WAS FASTINGPERFORMED BY: [place] [facility] [id number] ([id number]) ALT (SGPT) 11 [iU]/L (Normal) Range: 0-32 AST (SGOT) 13 [iU]/L (Normal) Range: 0-40 Alkaline Phosphatase, S 111 [iU]/L (Normal) Range: 39-117 Bilirubin, Total 0.4 mg/dL (Normal) Range: 0.0-1.2 A/G Ratio 1.7 (Normal) Range: 1.1-2.5 Globulin, Total 2.3 g/dL (Normal) Range: 1.5-4.5 Albumin, Serum 4.0 g/dL (Normal) Range: 3.6-4.8 Protein, Total, Serum 6.3 g/dL (Normal) Range: 6.0-8.5 Calcium, Serum 9.3 mg/dL (Normal) Range: 8.6-10.2 Carbon Dioxide, Total 26 mmol/L (Normal) Range: 18-29 Chloride, Serum 103 mmol/L (Normal) Range: 97-108 Potassium, Serum 4.7 mmol/L (Normal) Range: 3.5-5.2 Sodium, Serum 142 mmol/L (Normal) Range: 134-144 BUN/Creatinine Ratio 17 (Normal) Range: 11-26 eGFR If Africn Am 71 mL/min/1.73 (Normal) eGFR If NonAfricn Am 62 mL/min/1.73 (Normal) Creatinine, Serum 0.96 mg/dL (Normal) Range: 0.57-1.00 BUN 16 mg/dL (Normal) Range: 8-27 Glucose, Serum 96 mg/dL (Normal) Range: 65-99 :31 LIPID PANEL (20530) Comments: PATIENT WAS FASTINGPERFORMED BY: [employer]6370 [facility] [id number] LDL/HDL Ratio 1.4 {ratio_units} (Normal) Range: 0.0-3.2 LDL Cholesterol Calc 89 mg/dL (Normal) Range: 0-99 VLDL Cholesterol Gabriel 30 mg/dL (Normal) Range: 5-40 HDL Cholesterol 62 mg/dL (Normal) Comments: According to ATP-III Guidelines, HDL-C >59 mg/dL is considered anegative risk factor for CHD. Triglycerides 149 mg/dL (Normal) Range: 0-149 Cholesterol, Total 181 mg/dL (Normal) Range: 100-199 96-Wxh-814240:14 URINE MADAY CULTURE (FARIBA Comments: PATIENT NOT FASTINGPERFORMED BY: [employer] Hlcinf8040 [facility] [id number] Information: SRC: [id number] COL COUNT) ([id number]) Result 1 MUG (Normal) Comments: Mixed urogenital sakjy824 Colonies/mL Urine Culture,Comprehensive Final report (Normal) 24-Fzx-[id number]:18 URINE MADAY CULTURE-IDENTIFICATN Comments: PATIENT NOT FASTINGPERFORMED BY: [facility] Ymwfmw9723 [facility] [id number] Information: [id number] (09863) Antimicrobial MIHEAD (Normal) Comments: S = Susceptible; I = Intermediate; R = Resistant P = Positive; N = Negative MICS are expressed in micrograms per mL Antibiotic RSLT#1 RSLT#2 Susceptibility RSLT#3 RSLT#4Amoxicillin/Clavulanic Acid SAmpicillin SCefepime SCeftriaxone SCefuroxime SCephalothin SCiprofloxacin SErtapenem SGentamicin SImipenem SLevofloxacin SNitrofurantoin S Piperacillin STetracycline STobramycin STrimethoprim/Sulfa S Result 1 Escherichia coli Comments: Greater than 100,000 colony forming units per mL (Abnormal) Urine Final report Culture,Comprehensive (Abnormal) 57-Spf-524312:09 Urinalysis, Office (07229) UA - LEUKOCYTE ESTERASE Moderate (Normal) UA - NITRITE Negative (Normal) URINE UROBILINGN FARIBA TIMED Normal mg/dL (Normal) UA - PROTEIN Negative mg/dL (Normal) UA - PH 5.0 (Normal) UA - BLOOD Hemolyzed Large (Normal) UA - SPECIFIC GRAVITY 1.020 (Normal) UA - KETONES Negative mg/dL (Normal) UA - BILIRUBIN Negative (Normal) UA - GLUCOSE Negative (Normal) 73-Nxh-843583:37 URINE MADAY CULTURE-IDENTIFICATN Comments: PATIENT NOT FASTINGPERFORMED BY: JAMES [facility] Ncykpx8315 [facility] [id number] Information: SRC: URINE [id number] (51274) Antimicrobial MIHEAD (Normal) Comments: S = Susceptible; I = Intermediate; R = Resistant P = Positive; N = Negative MICS are expressed in micrograms per mL Antibiotic RSLT#1 RSLT#2 Susceptibility RSLT#3 RSLT#4Amoxicillin/Clavulanic Acid SAmpicillin RCefepime SCeftriaxone SCefuroxime SCephalothin SCiprofloxacin SErtapenem SGentamicin SImipenem SLevofloxacin SNitrofurantoin S Piperacillin RTetracycline STobramycin STrimethoprim/Sulfa S Result 1 Escherichia coli Comments: 25,000-50,000 colony forming units per mL (Normal) Urine Final report Culture,Comprehensive (Normal) 05-Vvx-266195:10 Urinalysis, Office (00811) UA - BILIRUBIN Negative (Normal) UA - BLOOD Hemolyzed Moderate (Normal) UA - GLUCOSE Negative (Normal) UA - KETONES Negative mg/dL (Normal) UA - LEUKOCYTE ESTERASE Large (Normal) UA - NITRITE Negative (Normal) UA - PH 6.0 (Normal) UA - PROTEIN Negative mg/dL (Normal) UA - SPECIFIC GRAVITY 1.025 (Normal) URINE UROBILINGN FARIBA TIMED Normal mg/dL (Normal) 34-Fxz-481821:14 HPV automatic Comments: Source.............Cervical;EndocervicalNo. of containers..01 CYTYC Thin Prep VialPATIENT NOT FASTINGPERFORMED BY: WB [facility] Nicqeplmck760 [facility] [id number] BY: =Marcy Beal (57271) [facility] Lfjzwimuca999 [facility] [id number] Information: [id number] HPV, high-risk Negative Comments: This high-risk HPV test detects thirteen high- risk types(16/18/31/33/35/39/45/51/52/56/58/59/68) without differentiation. . (Normal) Note: PAPSMR (Normal) Comments: The Pap smear is a screening test designed to aid in the detection ofpremalignant and malignant conditions of the uterine cervix. It is not adiagnostic procedure and should not be used as the sole mean s of detectingcervical cancer. Both false-positive and false-negative reports do occur. .This liquid based ThinPrep(R) pap test w as screened with theuse of an image guided system. See Note . (Normal) DIAGNOSIS: SPRCS (Normal) Comments: NEGATIVE FOR INTRAEPITHELIAL LESION AND MALIGNANCY.CELLULAR CHANGES ASSOCIATED WITH ATROPHY ARE PRESENT.Satisfactory for evaluation. Endocervical and/or squamous metaplasticcells (endocervical componen t) are present.V72.31 ; Routine gynecological examinationHuberti Mathew Appliance Sales Associate (ASCP) 06-Uwe-228505:45 FECAL OCCULT HGB ASSAY- tubes sent home (23343) FECAL OCCULT HGB ASSAY, QUAL, 1-3 SIMULTANEOU negative (Normal) 60-Imr-883052:37 CBC WITH MANUAL DIFF Comments: PATIENT WAS FASTINGPERFORMED BY: [facility]CoMat[facility] Educational CenterNetmvs5839 [facility] [id number] Information: [id number] (15497) Immature Grans (Abs) 0.0 {x10E3/uL} (Normal) Range: 0.0-0.1 Immature Granulocytes 0 % (Normal) Range: 0-2 Baso (Absolute) 0.0 {x10E3/uL} (Normal) Range: 0.0-0.2 Eos (Absolute) 0.2 {x10E3/uL} (Normal) Range: 0.0-0.4 Monocytes(Absolute) 0.7 {x10E3/uL} (Normal) Range: 0.1-0.9 Lymphs (Absolute) 1.8 {x10E3/uL} (Normal) Range: 0.7-3.1 Neutrophils (Absolute) 4.7 {x10E3/uL} (Normal) Range: 1.4-7.0 Basos 0 % (Normal) Range: 0-3 Eos 3 % (Normal) Range: 0-5 Monocytes 9 % (Normal) Range: 4-12 Lymphs 24 % (Normal) Range: 14-46 Neutrophils 64 % (Normal) Range: 40-74 Platelets 313 {x10E3/uL} (Normal) Range: 155-379 RDW 13.5 % (Normal) Range: 12.3-15.4 MCHC 34.3 g/dL (Normal) Range: 31.5-35.7 MCH 31.3 pg (Normal) Range: 26.6-33.0 MCV 91 fL (Normal) Range: 79-97 Hematocrit 39.9 % (Normal) Range: 34.0-46.6 Hemoglobin 13.7 g/dL (Normal) Range: 11.1-15.9 RBC 4.38 {x10E6/uL} (Normal) Range: 3.77-5.28 WBC 7.5 {x10E3/uL} (Normal) Range: 3.4-10.8 52-Ccf-543894:37 METABOLIC PANEL, COMPREHENSIVE Comments: PATIENT WAS FASTINGPERFORMED BY: [facility]CoMat[facility] Educational CenterZkpvfr2803 [facility] [id number] (07254) ALT (SGPT) 21 [iU]/L (Normal) Range: 0-32 AST (SGOT) 22 [iU]/L (Normal) Range: 0-40 Alkaline Phosphatase, S 112 [iU]/L (Normal) Range: 39-117 Bilirubin, Total 0.6 mg/dL (Normal) Range: 0.0-1.2 A/G Ratio 1.6 (Normal) Range: 1.1-2.5 Globulin, Total 2.5 g/dL (Normal) Range: 1.5-4.5 Albumin, Serum 4.1 g/dL (Normal) Range: 3.6-4.8 Protein, Total, Serum 6.6 g/dL (Normal) Range: 6.0-8.5 Calcium, Serum 9.5 mg/dL (Normal) Range: 8.6-10.2 Carbon Dioxide, Total 25 mmol/L (Normal) Range: 19-28 Chloride, Serum 101 mmol/L (Normal) Range: 97-108 Potassium, Serum 4.5 mmol/L (Normal) Range: 3.5-5.2 Sodium, Serum 141 mmol/L (Normal) Range: 134-144 BUN/Creatinine Ratio 16 (Normal) Range: 11-26 eGFR If Africn Am 71 mL/min/1.73 (Normal) eGFR If NonAfricn Am 61 mL/min/1.73 (Normal) Creatinine, Serum 0.97 mg/dL (Normal) Range: 0.57-1.00 BUN 16 mg/dL (Normal) Range: 8-27 Glucose, Serum 92 mg/dL (Normal) Range: 65-99 :37 Vitamin D Hydroxy (39261) Comments: PATIENT WAS FASTINGPERFORMED BY: [employer] [facility] [id number] Vitamin D, 25-Hydroxy 35.3 ng/mL (Normal) Range: 30.0-100.0 Comments: Vitamin D deficiency has been defined by the Vendor ofMedicine and an Endocrine Society practice guideline as alevel of serum 25-OH vitamin D less than 20 ng/mL (1,2).The Endocrine Society went on to further define vitamin Dinsufficiency as a level between 21 and 29 ng/mL (2).1. IOM (Vendor of Medicine). 2010. Dietary reference intakes for calcium and D. [place]: The National Academies Press.2. Dung MF, Ken NC, Diego ELMORE, et al. Evaluation, treatment, and prevention of vitamin D deficiency: an Endocrine Society clinical practice guideline. JCEM. 2010; 96(7):1911-30. :37 TSH (54070) Comments: PATIENT WAS FASTINGPERFORMED BY: [employer] Zyqzfx7166 [facility] [id number] TSH 2.590 {uIU/mL} (Normal) Range: 0.450-4.500 :37 LIPID PANEL (26556) Comments: PATIENT WAS FASTINGPERFORMED BY: [employer] Injtem4642 [facility] [id number] LDL/HDL Ratio 2.0 {ratio_units} (Normal) Range: 0.0-3.2 LDL Cholesterol Calc 141 mg/dL (Abnormal) Range: 0-99 VLDL Cholesterol Gabriel 25 mg/dL (Normal) Range: 5-40 HDL Cholesterol 72 mg/dL (Normal) Comments: According to ATP-III Guidelines, HDL-C >59 mg/dL is considered anegative risk factor for CHD. Triglycerides 125 mg/dL (Normal) Range: 0-149 Cholesterol, Total 238 mg/dL (Abnormal) Range: 100-199 83-Cig-06311:01 [facility] Radiology Report See Note Comments: MAMMOGRAPHY - BILATERAL SCREENING REASON FOR EXAM: Female, 63 years old. Routine annual screeningexamination. PERTINENT HISTORY: Non-contributory. TECHNIQUE: Digital examination. Med iolateral ob (Normal) lique (MLO) andcraniocaudad (CC) views of both breasts were obtained. CAD: CAD wasperformed on this study. COMPARISON: 04/05/12 FINDINGS:The breast composition is he te rogeneously dense - ranging from 51% to 75%of the breast tissue. There are no dominant masses or suspicious calcifications. Benign asymmetric parenchymal densities in the left breast are unchanged.A karol itary small nodular asymmetric parenchymal density in the outerrightbreast is unchanged. IMPRESSION:Stable bilateral screening mammogram. Yearly follow-up recommended . (A) ASSESSMENT CATEGORY:BIRADS Category 2: Benign finding(s). A letter regarding these resultswill be sent to the patient by the facility within 30 days. Approxi mately 10% of breast cancers are not detected by mammography. Anormal mammogram should not delay biopsy of a clinically suspiciousabnormality. Signed:Frank Durant M.D.April 21, 2013 at 3:29:39 PM [id number] Signed RU/RU If you are the referring physician and would like to consult with theradiologist who provided this interpretation, please contact Tricia Camarena at . If this radiologist is unavailable, youwillbe directed to another radiologist to assist. If you are a patient with a question regarding this report, pleasecontactyour referring physician direct ly. Professional Interpretation Provided By: [employer], Phone , These documents contain legally protected and confidential healthinformation intended only for the use of the individual or entity namedabove. If you are not the intended recipient, you are hereby notifiedthatany disclosure, copying, distribution, or other use of these documents isstrictly prohibited. If yo u have received this information in error,pleasenotify the sender immediately and arrange for the return or destructionofthese documents. Dictated on 04/21/131528 by Frank DurantTranscribed on 1536 by ITS IMPORTSign by Frank Durant on 04/21/131537 Sign by: Frank Durant 64-Owh-56843:18 CBCMD ANC 3.5 3/uL (Normal) Range: 2.0-7.7 IG% 0.10 % (Abnormal) Range: 0.0-0.0 B% 0.7 % (Normal) Range: 0-1 E% 3.3 % (Normal) Range: 0-5 M% 13.2 % (Abnormal) Range: 0-10 L% 30.4 % (Normal) Range: 19-41 N% 52.3 % (Normal) Range: 47-70 MPV 10.6 fL (Normal) Range: 6.2-12.0 PLT 307 K/mm3 (Normal) Range: 150-450 RDWSD 42.7 fL (Normal) Range: 35.1-43.9 RDWCV 12.9 % (Normal) Range: 11.6-14.6 MCHC 33.6 g/dL (Normal) Range: 32-36 MCH 31.2 pg (Normal) Range: 27.0-32.0 MCV 93.0 fL (Normal) Range: 81-99 HCT 42.6 % (Normal) Range: 37-47 HGB 14.3 g/dL (Normal) Range: 12.0-15.0 RBC 4.58 {M/mm3} (Normal) Range: 4.2-5.4 WBC 6.7 {k/mm3} (Normal) Range: 4.4-11.0 :18 CMP GAP 5 (Normal) Range: 5-15 CO2 31.0 mmol/L (Normal) Range: 21.0-32.0 CL 103 mmol/L (Normal) Range: 98-107 K 4.1 mmol/L (Normal) Range: 3.5-5.1 NA 139 mmol/L (Normal) Range: 136-145 BIT 0.50 mg/dL (Normal) Range: 0.00-1.00 ALT 25 U/L (Normal) Range: 12-78 ALK 113 U/L (Normal) Range: 50-136 AST 19 U/L (Normal) Range: 15-37 CA 9.3 mg/dL (Normal) Range: 8.5-10.1 AG 1.2 {RATIO} (Normal) Range: 0.9-2.4 GLOB 3.3 g/dL (Normal) Range: 2.7-4.2 ALB 3.9 g/dL (Normal) Range: 3.4-5.0 TPROT 7.2 g/dL (Normal) Range: 6.4-8.2 BC 18.0 {RATIO} (Normal) Range: 10-20 GFRAA 72 mL/min (Normal) GFR 59 mL/min (Abnormal) CREAT 1.0 mg/dL (Normal) Range: 0.6-1.0 BUN 18 mg/dL (Normal) Range: 7-18 GLU 95 mg/dL (Normal) Range: 70-110 :18 LIPID LDL 104 mg/dL (Normal) Range: 0-130 VLDL 20 mg/dL (Normal) Range: 5-40 HDL 70 mg/dL (Normal) Comments: Reference RangeHDL <40 mg/dL Low HDL CholesterolHDL >or= 60 mg/dL High HDL Cholesterol TRIG 98 mg/dL (Normal) Comments: Serum Triglycerides Reference IntervalNormal <150 mg/dLBorderline high 150 - 199 mg/dLHigh 200 - 499 mg/ dLVery High > or = 500 mg/dL CHOL 194 mg/dL (Normal) Comments: <200 mg/dL Bifzpcyiz633-366 mg/dL Borderline>240 mg/dL High Risk :18 TSH 2.02 {uIU/mL} (Normal) Range: 0.358-3.74 :18 VITD 56.0 ng/mL (Normal) Comments: Vitamin D 25(OH) Status RangeDeficiency <20 ng/mL (50nmol/L)Insufficiency 20 - 30 ng/mL (50 - 75 nmol/L)Sufficiency 30 - 100 ng/mL (75 - 250 nm ol/L)Toxicity >100 ng/mL (250 nmol/L)Effective 201209-Sep-201250-Jzu-595438:39 Aerobic Bacterial Culture Comments: PERFORMED BY: [facility]CoMat[facility] Educational CenterMjdatm3650 [facility] [id number] Information: SRC: RIGHT CHEST Result 1 NG36 (Normal) Comments: No growth in 36 - 48 hours. Aerobic Bacterial Culture Final report (Normal) :33 CMP GAP 8 (Normal) Range: 5-15 CO2 27.0 mmol/L (Normal) Range: 21.0-32.0 CL 102 mmol/L (Normal) Range: 98-107 K 4.4 mmol/L (Normal) Range: 3.5-5.1 NA 137 mmol/L (Normal) Range: 136-145 BIT 0.40 mg/dL (Normal) Range: 0.00-1.00 ALT 20 U/L (Normal) Range: 12-78 ALK 101 U/L (Normal) Range: 50-136 AST 14 U/L (Abnormal) Range: 15-37 CA 8.9 mg/dL (Normal) Range: 8.5-10.1 AG 1.1 {RATIO} (Normal) Range: 0.9-2.4 GLOB 3.4 g/dL (Normal) Range: 2.7-4.2 ALB 3.6 g/dL (Normal) Range: 3.4-5.0 TPROT 7.0 g/dL (Normal) Range: 6.4-8.2 BC 22.2 {RATIO} (Abnormal) Range: 10-20 GFRAA 81 mL/min (Normal) GFR 67 mL/min (Normal) CREAT 0.9 mg/dL (Normal) Range: 0.6-1.0 BUN 20 mg/dL (Abnormal) Range: 7-18 GLU 92 mg/dL (Normal) Range: 70-110 :33 LIPID VLDL 18 mg/dL (Normal) Range: 5-40 LDL 97 mg/dL (Normal) Range: 0-130 HDL 67 mg/dL (Normal) Comments: Reference Range HDL <40 mg/dL Low HDL Cholesterol HDL >or= 60 mg/dL High HDL Cholesterol TRIG 88 mg/dL (Normal) Comments: Serum Triglycerides Reference Interval Normal <150 mg/dL Borderline high 150 - 199 mg/dL High 200 - 499 mg/dL Very High > or = 500 mg/dL CHOL 182 mg/dL (Normal) Comments: <200 mg/dL Desirable 200-240 mg/dL Borderline >240 mg/dL High Risk :33 VITD 38.8 ng/mL (Normal) Range: 30.0-100.0 Comments: Vitamin D deficiency has been defined by the Vendor ofMedicine and an Endocrine Society practice guideline as alevel of serum 25-OH vitamin D less than 20 ng/mL (1,2).The Endocrine Society went on to further define vitamin Dinsufficiency as a level between 21 and 29 ng/mL (2).1. IOM (Vendor of Medicine). 2010. Dietary reference intakes for calcium and D. [place]: The National Academies Press.2. Dung MF, Ken NC, Diego ELMORE, et al. Evaluation, treatment, and prevention of vitamin D deficiency: an Endocrine Society clinical practice guideline. JCEM. 2010; 96(7): 1911-30.Performed at: [address] [id number] Director: Amari Barnett PhD, Phone: [phone] 7-Fwp-319285:36 BILAT SCRN DIGITAL & CAD Radiology Report See Note (Normal) Comments: MAMMOGRAPHY - BILATERAL SCREENING REASON FOR EXAM: Female, 62 years old. Routine annual screeningexamination. PERTINENT HISTORY: Non-contributory. TECHNIQUE: Digital examination. Med iolateral ob lique (MLO) andcraniocaudad (CC) views of both breasts were obtained. CAD: CAD wasperformed on this study. COMPARISON: Comparison is made with prior studies dated February 26ndOctober. FINDI NGS:The breast composition is heterogeneously dense. There are no dominant masses or suspicious calcifications. No other significant abnormalities are identified. There has been nosignificant change si nce the prior study. IMPRESSION:Stable bilateral screening mammogram. Yearly follow-up recommended. (A) ASSESSMENT CATEGORY:BIRADS Category 2: Benign finding(s). A letter regarding these resultswil l be sent to the patient by the facility within 30 days. Approximately 10% of breast cancers are not detected by mammography. Anormal mammogram should not delay biopsy of a clinically suspiciousabnorma lity. Signed:Cruzito Khan M.D.April 05, 2012 at 3:13:08 PM [id number] Signed GP/GP If you are the referring physician and would like to consult with theradiologist who provided this interpretation, please contact Tricia Butler at [phone]. If this radiologist is unavailable, youwill be directed to another radiologist to assist. If you are a patient with a questi on regarding this report, pleasecontactyour referring physician directly. Professional Interpretation Provided By: [employer], Phone , These documents contain legally prot ected and confidential healthinformation intended only for the use of the individual or entity namedabove. If you are not the intended recipient, you are hereby notifiedthatany disclosure, copying, dist ribution, or other use of these documents isstrictly prohibited. If you have received this information in error,pleasenotify the sender immediately and arrange for the return or destructionofthese docum ents. Dictated on 04/05/12 1450 by Kaushal Khan MDranscribed on 04/05/12 1518 by ITS IMPORTSign by Cruzito Khna MD on 04/05/12 1519 Sign by: Cruzito Khan MD 82-Rku-314616:06 HEPATOBILLIARY IMG W/PHARM INT Radiology Report See Note (Normal) Comments: CLINICAL:62-year-old female with history of right upper quadrant abdominal pain. RADIONUCLIDE HEPATOBILIARY SCINTIGRAPHY COMPARISON:Gallbladder ultrasound report 03/18/12 FINDINGS:Following the intraven ous administration of 5.1 mCi of Tc Mebrofenin,hepatobiliary images reveal: 1. Relatively prompt and homogeneous radiopharmaceutical concentrationisnoted by a normal sized liver. No parenchymal defect s are identified.2. Gallbladder activity is identified at 45 minutes postradiopharmaceutical administration.3. Small intestinal tract is observed at 30 minutes postradiopharmaceutical administration.4 . Washout of the radiopharmaceutical by the hepatic parenchyma occursina normal fashion on qualitative inspection. Cholecystokinin (0.02 ug/kg) was administered intravenously over k58-dkfjwx period. T he post CCK gallbladder ejection fraction vzkvlmqeovdk34 minutes following Cholecystokinin administration was noted to be 93.6%(normal greater than 35%). During 30 minutes of post CCK imaging, thereisno scintigraphic evidence of reflux of the radiotracer into the commonhepatic duct or refilling of the gallbladder. IMPRESSION:1. NORMAL 99m Tc Mebrofenin hepatobiliary imaging survey withCholecystokinin . A. A gallbladder ejection fraction calculated to greater than 35%following the administration of Cholecystokinin makes the probability offunctional hepatobiliary disease (gallbladder and/or sphincte r of Oddidyskinesia) and/or organic hepatobiliary disease (chronic acalculouscholecystitis and/or cystic duct syndrome) to be low. (David Villalobos et al,Journal of Nuclear Medicine 32:1695, 1991). Signed: Frank Bustos M.D.March 31, 2012 at 9:50:05 AM [id number] Signed RB/RB If you are the referring physician and would like to consult with theradiologist who provided this interpretati on, please contact Tricia Hood at [phone]. If this radiologist is unavailable, you will bedirected to another radiologist to assist. If you are a patient with a question regarding this report , pleasecontactyour referring physician directly. Professional Interpretation Provided By: [employer], Phone , These documents contain legally protected and confidential h ealthinformation intended only for the use of the individual or entity namedabove. If you are not the intended recipient, you are hereby notifiedthatany disclosure, copying, distribution, or other use o f these documents isstrictly prohibited. If you have received this information in error,pleasenotify the sender immediately and arrange for the return or destructionofthese documents. Dictated on 29/08 0652 by Frank Bustos DOTranscribed on 03/31/12 1157 by ITS IMPORTSign by Frank Bustos DO on 03/31/12 1158 Sign by: Frank Bustos DO 52-Roa-52696:09 GALLBLADDER Comments: f/u 03/19/12 Radiology Report See Note (Normal) Comments: PROCEDURE: ABDOMINAL ULTRASOUND - RIGHT UPPER QUADRANT REASON FOR VISIT: Female, 62 years old. Abdominal pain. TECHNIQUE: Ultrasound evaluation of the right upper quadrant wasperforme d with real- time and static hurtado-scale imaging. TECHNICAL QUALITY: Adequate. COMPARISON: Comparison is made with prior sonogram dated July. FINDINGS: Liver: The liver measures 11.8 cm. There is n ormal echogenicity of theliver. The bile ducts are within normal limits. There is hepatic colorflow. The direction of portal flow is hepatopetal. There is nodemonstrated mass lesion. Gallbladder: N ormal distended gallbladder. The gallbladder wallmeasures1.9 mm. There is a negative sonographic Rivera's sign. There is nopericholecystic fluid. There are no gallstones. Common Bile Duct (C.B.D.): The common bile duct is slightly dilated andmeasures 8.1 mm. Pancreas: Normal size of the head, body and tail of the pancreas.Thereis normal echogenicity of the pancreas. There is no demonstrated pancreatic mass or cyst. Right Kidney: Normal size of the right kidney. The right twccpvxwhjfvxu01.4 cm. Normal renal cortex. The right cortex measures 1.5 cm. Thereisa 7 mm x 6 mm x 5 mm cyst in t he upper pole. There is no righthydronephrosis. IMPRESSION:Mild dilatation of the common bile duct. Signed:Cruzito Khan M.D.March 18, 2012 at 10:37:07 AM [id number] Signed GP/G P If you are the referring physician and would like to consult with theradiologist who provided this interpretation, please contact Tricia Butler at [phone]. If this radiologist is wendie rushing, youwill be directed to another radiologist to assist. If you are a patient with a question regarding this report, pleasecontactyour referring physician directly. Professional Interpretation Provi ded By: [facility], Phone , Dictated on 03/18/12 0815 by Chester RAO,Kaushalranscribed on 03/18/12 1043 by ITS IMPORTSign by Chester RAO,Cruzito on 03/18/12 1043 Sign by: Chester RAO,Cruzito 16-Mar-2012 [facility] 58 U/L (Normal) Comments: DR VIERA ORDERED TSH, CMP, LIPID, CBCMD, UAC 10:19 Range: 25-115 [id number] CBCMD Comments: DR VIERA ORDERED TSH, CMP, LIPID, CBCMD, UAC RBCM NORM C+C {NORMAL} (Normal) PE ADEQUATE (Normal) EOS 1 % (Normal) Range: 0-5 MON 10 % (Normal) Range: 0-10 LYMPH 29 % (Normal) Range: 19-41 BAND 2 % (Normal) Range: 0-5 PMN 58 % (Normal) Range: 47-70 TRINITY 100 (Normal) ANC 4.6 3/uL (Normal) Range: 2.0-7.7 PLT 316 K/mm3 (Normal) Range: 150-450 RDW 13.1 % (Normal) Range: 11.6-14.6 MCHC 35.1 g/dL (Normal) Range: 32-36 MCH 32.0 pg (Normal) Range: 27.0-32.0 MCV 91.3 fL (Normal) Range: 81-99 HCT 38.3 % (Normal) Range: 37-47 HGB 13.4 g/dL (Normal) Range: 12.0-16.0 RBC 4.20 {M/mm3} (Normal) Range: 4.2-5.4 WBC 7.1 K/mm3 (Normal) Range: 4.4-11.0 :19 CMP Comments: DR VIERA ORDERED TSH, CMP, LIPID, CBCMD, UAC; f/u 03/19/12 GAP 9 (Normal) Range: 5-15 CO2 29.0 mmol/L (Normal) Range: 21.0-32.0 CL 102 mmol/L (Normal) Range: 98-107 K 4.5 mmol/L (Normal) Range: 3.5-5.1 NA 140 mmol/L (Normal) Range: 136-145 BIT 0.70 mg/dL (Normal) Range: 0.00-1.00 ALT 22 U/L (Normal) Range: 12-78 ALK 88 U/L (Normal) Range: 50-136 AST 17 U/L (Normal) Range: 15-37 CA 8.8 mg/dL (Normal) Range: 8.5-10.1 AG 1.0 {RATIO} (Normal) Range: 0.9-2.4 GLOB 3.7 g/dL (Normal) Range: 2.7-4.2 ALB 3.8 g/dL (Normal) Range: 3.4-5.0 TPROT 7.5 g/dL (Normal) Range: 6.4-8.2 BC 19.1 {RATIO} (Normal) Range: 10-20 GFRAA 64 mL/min (Normal) GFR 53 mL/min (Abnormal) CREAT 1.1 mg/dL (Abnormal) Range: 0.6-1.0 BUN 21 mg/dL (Abnormal) Range: 7-18 GLU 98 mg/dL (Normal) Range: 70-110 :19 LIPASE 259 U/L (Normal) Comments: DR VIERA ORDERED TSH, CMP, LIPID, CBCMD, UAC Range: 70-290 :19 LIPID Comments: DR VIERA ORDERED TSH, CMP, LIPID, CBCMD, UAC VLDL 22 mg/dL (Normal) Range: 5-40 LDL 153 mg/dL (Abnormal) Range: 0-130 HDL 70 mg/dL (Normal) Comments: Reference Range HDL <40 mg/dL Low HDL Cholesterol HDL >or= 60 mg/dL High HDL Cholesterol TRIG 108 mg/dL (Normal) Comments: Serum Triglycerides Reference Interval Normal <150 mg/dL Borderline high 150 - 199 mg/dL High 200 - 499 mg/dL Very High > or = 500 mg/dL CHOL 245 mg/dL (Abnormal) Comments: <200 mg/dL Desirable 200-240 mg/dL Borderline >240 mg/dL High Risk :19 TSH 1.91 {uIU/mL} (Normal) Comments: DR VIERA ORDERED TSH, CMP, LIPID, CBCMD, UAC Range: 0.358-3.74 :19 UAC Comments: DR VIERA ORDERED TSH, CMP, LIPID, CBCMD, UAC UMUC RARE {/hpf} (Normal) UBAC 0 SEEN {/hpf} (Normal) UEPIS 0-5 SEEN {/hpf} (Normal) Range: 5-10 URBC 0 SEEN {/hpf} (Normal) Range: 0-5 UWBC 0-5 SEEN {/hpf} (Normal) Range: 0-5 YANET NEGATIVE (Normal) UOB NEGATIVE (Normal) MATTY NEGATIVE (Normal) UROBU 0.2 EU/dl (Normal) Range: 0.2 - 1.0 uPROTU NEGATIVE (Normal) WILIAM 7.0 (Normal) Range: 5.0-8.0 SGU 1.025 (Normal) Range: 1.002-1.030 KETU NEGATIVE mg/dL (Normal) UICTO Neg (Normal) BILIU Inconcl (Normal) Comments: Dipstick inconclusive for bilirubin.See confirmatory ICTOTEST. GLUR NEGATIVE (Normal) UCLAR CLEAR (Normal) UCOL YELLOW (Normal) [id number] Urinalysis, Office (01926) UA - BILIRUBIN Negative (Normal) UA - BLOOD Negative (Normal) UA - GLUCOSE Negative (Normal) UA - KETONES Negative mg/dL (Normal) UA - LEUKOCYTE ESTERASE Trace (Normal) UA - NITRITE Negative (Normal) UA - PH 6.0 (Normal) UA - PROTEIN Negative mg/dL (Normal) UA - SPECIFIC GRAVITY 1.015 (Normal) URINE UROBILINGN FARIBA Normal mg/dL (Normal) TIMED :02 CUT See Note (Normal) Comments: Normal throat bhavesh isolated. No beta-hemolyticstreptococcus isolated. [id number] Rapid Strep Test, Office (73034) Rapid Strep Test, Office Negative (Normal) :58 CBCD,SMEAR DIFF RED CELL MORPH SeeNote {NORMAL} (Normal) Comments: Result: NORM C+C PLT EST SeeNote (Normal) Comments: Result: ADEQUATE BASOPHIL 1 % (Normal) Range: 0-1 EOS 3 % (Normal) Range: 0-5 MONOCYTE 17 % (Abnormal) Range: 0-10 LYMPH 22 % (Normal) Range: 19-41 SEGS 57 % (Normal) Range: 47-70 CELLS COUNTED 100 (Normal) ABSOLUTE NEUT 3.3 3/uL (Normal) Range: 2.0-7.7 PLT 329 K/mm3 (Normal) Range: 150-450 RDW 13.0 % (Normal) Range: 11.6-14.6 MCHC 34.2 g/dL (Normal) Range: 32-36 MCH 31.6 pg (Normal) Range: 27.0-32.0 MCV 92.6 fL (Normal) Range: 81-99 HCT 39.9 % (Normal) Range: 37-47 HGB 13.6 g/dL (Normal) Range: 12.0-16.0 RBC 4.32 {M/mm3} (Normal) Range: 4.2-5.4 WBC 6.3 K/mm3 (Normal) Range: 4.4-11.0 :58 COMP METABOLIC GAP 7 (Normal) Range: 5-15 CO2 29.0 mmol/L (Normal) Range: 21.0-32.0 CL 104 mmol/L (Normal) Range: 98-107 K 4.8 mmol/L (Normal) Range: 3.5-5.1 NA 140 mmol/L (Normal) Range: 136-145 T BILI 0.40 mg/dL (Normal) Range: 0.00-1.00 ALT 22 U/L (Normal) Range: 12-78 ALK P 93 U/L (Normal) Range: 50-136 AST 17 U/L (Normal) Range: 15-37 CA 8.7 mg/dL (Normal) Range: 8.5-10.1 A/G 1.0 {RATIO} (Normal) Range: 0.9-2.4 GLOB 3.5 g/dL (Normal) Range: 2.7-4.2 ALB 3.6 g/dL (Normal) Range: 3.4-5.0 T PROT 7.1 g/dL (Normal) Range: 6.4-8.2 BUN/CRE 15.0 {RATIO} (Normal) Range: 10-20 EST GFR - AA 73 mL/min (Normal) EST GFR 60 mL/min (Normal) CREAT,SERUM 1.0 mg/dL (Normal) Range: 0.6-1.0 BUN 15 mg/dL (Normal) Range: 7-18 GLU 99 mg/dL (Normal) Range: 70-110 :58 COMPLETE UA AMORPHOUS 2+ (Normal) MUCUS, URINE 0 SEEN {/hpf} (Normal) BACTERIA RARE {/hpf} (Normal) SQUAM EPI SeeNote {/hpf} (Normal) Range: 5-10 Comments: Result: 0-5 SEEN RBC-UA 0 SEEN {/hpf} (Normal) Range: 0-5 WBC 0 SEEN {/hpf} (Normal) Range: 0-5 LEUK ESTERASE SeeNote (Normal) Comments: Result: NEGATIVE OCCULT BLOOD-UR SeeNote (Normal) Comments: Result: NEGATIVE NITRITE UR SeeNote (Normal) Comments: Result: NEGATIVE UROBILI 0.2 EU/dl (Normal) Range: 0.2 - 1.0 PROT DIPSTX SeeNote (Normal) Comments: Result: NEGATIVE pH UR 8.0 (Normal) Range: 5.0-8.0 SP.GR. DIPSTX 1.015 (Normal) Range: 1.002-1.030 KETONE UR SeeNote mg/dL (Normal) Comments: Result: NEGATIVE BILIRUBIN URINE SeeNote (Normal) Comments: Result: NEGATIVE GLUCOSE, UR SeeNote (Normal) Comments: Result: NEGATIVE CLARITY CLOUDY (Normal) COLOR YELLOW (Normal) :58 LIPID LDL 102 mg/dL (Normal) Range: 0-130 VLDL 15 mg/dL (Normal) Range: 5-40 HDL 65 mg/dL (Normal) Comments: Reference Range HDL <40 mg/dL Low HDL Cholesterol HDL >or= 60 mg/dL High HDL Cholesterol TRIG 77 mg/dL (Normal) Comments: Serum Triglycerides Reference Interval Normal <150 mg/dL Borderline high 150 - 199 mg/dL High 200 - 499 mg/dL Very High > or = 500 mg/dL CHOL 182 mg/dL (Normal) Comments: <200 mg/dL Desirable 200-240 mg/dL Borderline >240 mg/dL High Risk :58 TSH 1.62 {uIU/mL} (Normal) Range: 0.358-3.74 05-Jun-20110:00 CHEST WITH CONTRAST Radiology Report See Note (Normal) Comments: PROCEDURE: CT CHEST WITH CONTRAST REASON FOR EXAM: Female, 61 years old. Abnormal chest x- ray.Controlledhypertension. History of sarcoidosis. TECHNIQUE: High resolution transaxial imaging was per formed followingintravenous administration of 100ml ml of Isovue 370 contrast material.Multiplanar coronal and sagittal images were reformatted. COMPARISON: Prior chest exam of May 27, 2011. FIN DINGS: Minimal posterior bibasilar discrete lung changes most likely of achronicnature. No broad consolidation. No specific evidence of a generalizedinterstitial process. There is no demonstrated ple ural abnormality. Normal heart and pericardium. Mediastinal and hilar adenopathy is present. Carinal lymph nodes arepresent up to 2 cm in size. One lymph node in the AP window measures 2cmin length. Pretracheal or retrotracheal lymph nodes measure about 1 cminsize. There are probably a conglomerate of enlarged lymph nodes in thesubcarinal area. Anterior mediastinal lymph nodes are less than 1 cm. Mild left hilar adenopathy. The largest left hilar lymph node is 2 cm.Mild right hilar adenopathy. The largest right hilar lymph node is 1.5cm.Normal enhancement of the pulmonary arteries. Mild calci fied plaque ofthethoracic aorta. There are no osteolytic or blastic bone lesions. Generalized moderatedegenerative disk changes in the thoracic spine. There is limited visualization of the liver, splee n, pancreas, adrenalglands, and abdominal aorta without a demonstrated abnormality. IMPRESSION:1. Bilateral hilar adenopathy and mediastinal adenopathy as describedabove. Findings are consistent with sarcoidosis.2. No acute pulmonary findings. Mild chronic posterior changes withoutevidence of a generalized interstitial process.3. Negative for pulmonary embolus.4. Mild calcified plaque of the tho racic aorta.5. Benign bone findings as described above. Dictated on 06/05/111731 by Shannon RAO,TheresaTranscribed on 06/05/111901 by ITS IMPORTSign by Shannon RAO,Marilia on 06/05/111902 Sign by : Marilia Ortega MD 27-May-2011 ART [id number] 81 U/L (Abnormal) Range: 12-68 12:07 :07 XOCHILT DIR SEMI-QL Comments: appt 06/03/11 XOCHILT DIRECT 33 AU/mL (Normal) : ASO 6031 94.6 {IU/mL} (Normal) Range: 0.0-200.0 Comments: Performed at: [facility] Lab[address] [id number] Director: Leana iVllar MD, Phone: [phone] : C-REACTIVE PROT 16.20 mg/L (Abnormal) Range: 0.0-3.0 Comments: C-Reactive Protein (CRP) provides useful information for thediagnosis, therapy and monitoring of inflammatory processesand associated diseases. For the evaluation of Relative Riskfor Cardiovascular Dise ase, a High Sensitivity CRP (HSCRP)should be ordered. :07 CBCD,SMEAR DIFF RED CELL MORPH SeeNote {NORMAL} (Normal) Comments: Result: NORM C+C PLT EST SeeNote (Normal) Comments: Result: ADEQUATE EOS 1 % (Normal) Range: 0-5 MONOCYTE 2 % (Normal) Range: 0-10 LYMPH 24 % (Normal) Range: 19-41 SEGS 73 % (Abnormal) Range: 47-70 CELLS COUNTED 100 (Normal) ABSOLUTE NEUT 5.7 3/uL (Normal) Range: 2.0-7.7 PLT 350 K/mm3 (Normal) Range: 150-450 RDW 13.1 % (Normal) Range: 11.6-14.6 MCHC 33.8 g/dL (Normal) Range: 32-36 MCH 31.6 pg (Normal) Range: 27.0-32.0 HCT 39.2 % (Normal) Range: 37-47 MCV 93.3 fL (Normal) Range: 81-99 HGB 13.3 g/dL (Normal) Range: 12.0-16.0 RBC 4.20 {M/mm3} (Normal) Range: 4.2-5.4 WBC 8.0 K/mm3 (Normal) Range: 4.4-11.0 : COMP METABOLIC GAP 8 (Normal) Range: 5-15 CO2 29.0 mmol/L (Normal) Range: 21.0-32.0 CL 101 mmol/L (Normal) Range: 98-107 K 3.7 mmol/L (Normal) Range: 3.5-5.1 NA 138 mmol/L (Normal) Range: 136-145 T BILI 0.60 mg/dL (Normal) Range: 0.00-1.00 ALT 23 U/L (Normal) Range: 12-78 ALK P 102 U/L (Normal) Range: 50-136 AST 12 U/L (Abnormal) Range: 15-37 CA 8.8 mg/dL (Normal) Range: 8.5-10.1 A/G 0.9 {RATIO} (Normal) Range: 0.9-2.4 GLOB 3.8 g/dL (Normal) Range: 2.7-4.2 ALB 3.5 g/dL (Normal) Range: 3.4-5.0 T PROT 7.3 g/dL (Normal) Range: 6.4-8.2 BUN/CRE 12.7 {RATIO} (Normal) Range: 10-20 EST GFR - AA 64 mL/min (Normal) EST GFR 53 mL/min (Abnormal) CREAT,SERUM 1.1 mg/dL (Abnormal) Range: 0.6-1.0 BUN 14 mg/dL (Normal) Range: 7-18 GLU 114 mg/dL (Abnormal) Range: 70-110 Comments: Fasting Glucose result from 110 to <126 mg/dL suggests IMPAIRED HOMEOSTASIS per A.D.A. criteria. [id number]-[id number] COMPLETE UA MUCUS, URINE 0 SEEN {/hpf} (Normal) BACTERIA 0 SEEN {/hpf} (Normal) SQUAM EPI 0 SEEN {/hpf} (Normal) Range: 5-10 RBC-UA 0 SEEN {/hpf} (Normal) Range: 0-5 WBC 0 SEEN {/hpf} (Normal) Range: 0-5 LEUK ESTERASE SeeNote (Normal) Comments: Result: NEGATIVE OCCULT BLOOD-UR SeeNote (Normal) Comments: Result: NEGATIVE NITRITE UR SeeNote (Normal) Comments: Result: NEGATIVE UROBILI 0.2 EU/dl (Normal) Range: 0.2 - 1.0 PROT DIPSTX SeeNote (Normal) Comments: Result: NEGATIVE pH UR 5.5 (Normal) Range: 5.0-8.0 SP.GR. DIPSTX <=1.005 (Normal) Range: 1.002-1.030 KETONE UR SeeNote mg/dL (Normal) Comments: Result: NEGATIVE BILIRUBIN URINE SeeNote (Normal) Comments: Result: NEGATIVE GLUCOSE, UR SeeNote (Normal) Comments: Result: NEGATIVE CLARITY CLEAR (Normal) COLOR STRAW (Normal) 20-Nin-[id number]:07 ESR SED RATE 36 mm/h (Abnormal) Range: 0-30 70-Nle-[id number]:07 RHEUMATOID FAC < 10.0 {IU/mL} (Normal) :07 TSH 2.21 {uIU/mL} (Normal) Range: 0.358-3.74 76-Uov-153819:20 CHEST, PA AND LATERAL Radiology Report See Note (Normal) Comments: PROCEDURE: X-RAY CHEST REASON FOR EXAM: Female, 61 years old. Cough TECHNIQUE: Frontal and lateral views of the chest. COMPARISON: 08/19/2010 FINDINGS:The lungs are expanded. There is no demon strated parenchymalabnormality.There is no demonstrated pleural abnormality. Normal heart and pericardium. Normal mediastinum and mansoor. The pulmonary arteries show increase insizebilaterally and pulmon lillie artery hypertension should be considered. Ectasia of the thoracic aorta is present. End plate spondylosis is seen throughout the thoracic spine. Normalvisualized ribs, clavicles, and shoulders. The re is no demonstrated abnormality of the visualized soft tissuestructures of the upper abdomen. IMPRESSION:Possible pulmonary artery hypertension. Arteriosclerotic vascular disease of aorta. End plate s pondylosis throughout thoracic spine. Dictated on 05/27/11 1118 by Laz Alan MDTranscribed on 05/28/11 0445 by ITS IMPORTSign by Laz Alan MD on 05/28/11 0446 Sign by: Laz Alan MD 27-May-2011 CULTURE, THROAT See Note (Normal) Comments: Normal throat bhavesh isolated. No beta-hemolyticstreptococcus isolated. 8:38 75-Cwa-[id number]:34 PPD (09032) SKIN TEST INTRADERMAL TB negative (Normal) 42-Fqv-[id number]:23 LQDPAP [id number] PAPSMR Comment (Normal) Comments: The Pap smear is a screening test designed to aid in thedetection of premalignant and malignant conditions of theuterine cervix. It is not a diagnostic procedure andshould not be used as the sole means of detecting cervicalcancer. Both false-positive and false-negative reports dooccur. .The HPV DNA reflex criteria were not met with this speci menresult therefore, no HPV testing was performed. .Performed at: [address] [id number] Director: Young Pope MD, Phone: [phone] COMM . (Normal) DIAGN Comment (Normal) Comments: NEGATIVE FOR INTRAEPITHELIAL LESION AND MALIGNANCY.CELLULAR CHANGES ASSOCIATED WITH ATROPHY ARE PRESENT.THIS SPECIMEN WAS RESCREENED PART OF OUR PARTS SALES REPRESENTATIVE PROGRAM.Satisfactory for evaluation. Endocervical component may not bedistinguished in cases of atrophy.Shayla Wright, Appliance Sales Associate (ASCP)Zahraa Orr, Supervisory Appliance Sales Associate (ASCP)This liquid based ThinPrep(R) pap test was screened withthe use of an image guided system. [id number] BILAT SCRN DIGITAL & CAD Radiology Report See Note (Normal) Comments: MAMMOGRAPHY - BILATERAL SCREENING REASON FOR EXAM: Female, 60 years old. Routine annual screeningexamination. PERTINENT HISTORY: Non-contributory. TECHNIQUE: Digital examination. Me diolateral o blique (MLO) andcraniocaudad (CC) views of both breasts were obtained. CAD: CAD wasperformed on this study. COMPARISON: Comparison is made with prior examination dated October . FINDINGS:The ra ast composition is heterogeneously dense. There are no masses or suspicious microcalcifications. Scatteredbilateralcalcifications are once again seen. No focal cluster is present. No other significant abnormalities are identified. There has been nosignificant change since the prior study. IMPRESSION:Normal bilateral screening mammogram. One year follow-up recommended. (A) ASSESSMENT CATEGORY:BIRAD S Category 2: Benign finding(s). A letter regarding these resultswill be sent to the patient by the facility within 30 days. Approximately 10% of breast cancers are not detected by mammography. Anorm al mammogram should not delay biopsy of a clinically suspiciousabnormality. Dictated on 02/26/11 1101 by Greg Khan MDeleTranscribed on 02/26/11 1332 by ITS IMPORTSign by Cruzito Khna MD on 02/26/11 1333 Sign by: Cruzito Khan MD [id number] DEXA BONE DENSITY STUDY (HP) Radiology Report See Note (Normal) Comments: PROCEDURE: DUAL ENERGY X-RAY ABSORPTIOMETRY / DEXA. REASON FOR EXAM: Female, 60 years old. TECHNIQUE: Bone Mineral Density (BMD) measurements of lumbar spine andbilateral hips were obtained. COMPAR LESTER: None. FINDINGS: Lumbar Spine (L1-L4): g/cm2 (1.242) / T-score (0.6) / Z-score (1.3)Left Femur Total: g/cm2 (0.956) / T-score (- 0.4) / Z- score (0.2)Right Femur Total: g/cm2 (0.999) / T-score (-0.1) / Z-score (0.5) On the lateral plate keeper film, there is a grade 2 anterior listhesis of L4 onL5. IMPRESSION:The patient is considered normal, as outlined below according to WorldHealth Or ganization (WHO) criteria. Fracture risk is low. Reference Information:The T-score is the number of standard deviations above or below thestandard which is normal for young adults at their peak bone mi neraldensity. The World Health Organization (WHO) interprets the T-scores asfollows: Above -1 Normal bone densityBetween -1 and -2.5 OsteopeniaEqual to / or below -2.5 Osteoporosis As a pr actical clinical guideline, osteopenia may be graded as follows:Mild -1 through -1.5Moderate -1.6 through -2.0Severe -2.1 through -2.4 The Z-score is the number of standard deviations above or below age-matchedcontrols. A Z-score of less than -1.5 would be considered abnormal. References:1. NIH Osteoporosis and Related Bone Diseases http://www.osteo.org2. International Society for Clinical Densit ometry http://www.iscd.org3. National Osteoporosis Foundation http://www.nof.org Dictated on 02/26/11 1146 by Chester RAO,PaulorieleTranscribed on 02/26/11 1338 by ITS IMPORTSign by Chester RAO,Regi messer on 02/26/11 1339 Sign by: Cruzito Khan MD :19 CBCD,SMEAR DIFF PLT EST SeeNote (Normal) Comments: Result: ADEQUATE RED CELL MORPH SeeNote {NORMAL} (Normal) Comments: Result: NORM C+C EOS 5 % (Normal) Range: 0-5 BAND 2 % (Normal) Range: 0-5 LYMPH 42 % (Abnormal) Range: 19-41 MONOCYTE 1 % (Normal) Range: 0-10 ABSOLUTE NEUT 3.7 3/uL (Normal) Range: 2.0-7.7 CELLS COUNTED 100 (Normal) SEGS 50 % (Normal) Range: 47-70 PLT 326 K/mm3 (Normal) Range: 150-450 RDW 13.7 % (Normal) Range: 11.6-14.6 MCH 31.7 pg (Normal) Range: 27.0-32.0 MCHC 34.2 g/dL (Normal) Range: 32-36 MCV 92.6 fL (Normal) Range: 81-99 HCT 39.9 % (Normal) Range: 37-47 HGB 13.6 g/dL (Normal) Range: 12.0-16.0 RBC 4.31 {M/mm3} (Normal) Range: 4.2-5.4 WBC 7.1 K/mm3 (Normal) Range: 4.4-11.0 :19 COMP METABOLIC GAP 9 (Normal) Range: 5-15 CL 107 mmol/L (Normal) Range: 98-107 CO2 28.0 mmol/L (Normal) Range: 21.0-32.0 K 4.7 mmol/L (Normal) Range: 3.5-5.1 ALT 30 U/L (Normal) Range: 12-78 NA 144 mmol/L (Normal) Range: 136-145 T BILI 0.50 mg/dL (Normal) Range: 0.00-1.00 ALK P 101 U/L (Normal) Range: 50-136 AST 17 U/L (Normal) Range: 15-37 A/G 0.9 {RATIO} (Normal) Range: 0.9-2.4 CA 8.4 mg/dL (Abnormal) Range: 8.5-10.1 ALB 3.3 g/dL (Abnormal) Range: 3.4-5.0 GLOB 3.6 g/dL (Normal) Range: 2.7-4.2 BUN/CRE 22.2 {RATIO} (Abnormal) Range: 10-20 T PROT 6.9 g/dL (Normal) Range: 6.4-8.2 EST GFR 67 mL/min (Normal) EST GFR - AA 81 mL/min (Normal) CREAT,SERUM 0.9 mg/dL (Normal) Range: 0.6-1.0 BUN 20 mg/dL (Abnormal) Range: 7-18 GLU 90 mg/dL (Normal) Range: 70-110 :19 COMPLETE UA AMORPHOUS 2+ (Normal) MUCUS, URINE 0 SEEN {/hpf} (Normal) BACTERIA 0 SEEN {/hpf} (Normal) SQUAM EPI SeeNote {/hpf} (Normal) Range: 5-10 Comments: Result: 5-10 SEEN RBC-UA 0 SEEN {/hpf} (Normal) Range: 0-5 WBC SeeNote {/hpf} (Normal) Range: 0-5 Comments: Result: 0-5 SEEN LEUK ESTERASE SeeNote (Normal) Comments: Result: NEGATIVE NITRITE UR SeeNote (Normal) Comments: Result: NEGATIVE OCCULT BLOOD-UR SeeNote (Normal) Comments: Result: NEGATIVE pH UR 7.0 (Normal) Range: 5.0-8.0 PROT DIPSTX TRACE (Normal) UROBILI 0.2 EU/dl (Normal) Range: 0.2 - 1.0 KETONE UR SeeNote mg/dL (Normal) Comments: Result: NEGATIVE SP.GR. DIPSTX 1.010 (Normal) Range: 1.002-1.030 BILIRUBIN URINE SeeNote (Normal) Comments: Result: NEGATIVE GLUCOSE, UR SeeNote (Normal) Comments: Result: NEGATIVE CLARITY SeeNote (Normal) Comments: Result: SL CLOUDY COLOR YELLOW (Normal) :19 LIPID LDL 116 mg/dL (Normal) Range: 0-130 VLDL 17 mg/dL (Normal) Range: 5-40 HDL 66 mg/dL (Normal) Comments: Reference Range HDL <40 mg/dL Low HDL Cholesterol HDL >or= 60 mg/dL High HDL Cholesterol TRIG 84 mg/dL (Normal) Comments: Serum Triglycerides Reference Interval Normal <150 mg/dL Borderline high 150 - 199 mg/dL High 200 - 499 mg/dL Very High > or = 500 mg/dL CHOL 199 mg/dL (Normal) Comments: <200 mg/dL Desirable 200-240 mg/dL Borderline >240 mg/dL High Risk :19 TSH 1.91 {uIU/mL} (Normal) Range: 0.358-3.74 :00 CHEST, PA AND LATERAL Radiology Report See Note (Normal) Comments: CLINICAL:Female, 60 years old. Six week history of cough. X-RAY EXAMINATION - CHEST TECHNIQUE:PA and lateral views of the chest. COMPARISON:None. FINDINGS: The lungs are expanded. There i s no demonst rated pulmonary parenchymalabnormality. There is no demonstrated pleural abnormality. The heart is normal in size and morphology. Normal mediastinum and mansoor. Normal visualized pulmonary arteries. Nor mal visualized aortic arch anddescending thoracic aorta. Normal visualized thoracic spine IMPRESSION:Normal x-ray examination of the chest. Dictated on 08/19/101648 by BATSHEVA GEORGETranscribed on 1648 by GIBSON,MCKESSONSign by BATSHEVA GEORGE on 08/20/10 0821 Sign by: BATSHEVA GEORGE :26 COMP METABOLIC ALK P 97 U/L (Normal) Range: 50-136 ALT 28 U/L (Normal) Range: 12-78 AST 16 U/L (Normal) Range: 15-37 CA 8.9 mg/dL (Normal) Range: 8.5-10.1 CL 101 mmol/L (Normal) Range: 98-107 CO2 30.0 mmol/L (Normal) Range: 21.0-32.0 GAP 10 (Normal) Range: 5-15 K 4.5 mmol/L (Normal) Range: 3.5-5.1 NA 141 mmol/L (Normal) Range: 136-145 T BILI 0.50 mg/dL (Normal) Range: 0.00-1.00 A/G 1.1 {RATIO} (Normal) Range: 0.9-2.4 ALB 3.6 g/dL (Normal) Range: 3.4-5.0 BUN 15 mg/dL (Normal) Range: 7-18 BUN/CRE 15.0 {RATIO} (Normal) Range: 10-20 CREAT,SERUM 1.0 mg/dL (Normal) Range: 0.6-1.0 EST GFR 60 mL/min (Normal) EST GFR - AA 73 mL/min (Normal) GLOB 3.3 g/dL (Normal) Range: 2.7-4.2 T PROT 6.9 g/dL (Normal) Range: 6.4-8.2 GLU 89 mg/dL (Normal) Range: 70-110 :26 LIPID HDL 63 mg/dL (Normal) Comments: Reference RangeHDL <40 mg/dL Low HDL CholesterolHDL >or= 60 mg/dL High HDL Cholesterol LDL 122 mg/dL (Normal) Range: 0-130 TRIG 105 mg/dL (Normal) Comments: Serum Triglycerides Reference IntervalNormal <150 mg/dLBorderline high 150 - 199 mg/dLHigh 200 - 499 mg/ dLVery High > or = 500 mg/dL VLDL 21 mg/dL (Normal) Range: 5-40 CHOL 206 mg/dL (Abnormal) Comments: <200 mg/dL [id number] mg/dL Borderline>240 mg/dL High Risk :26 TSH 1.24 {uIU/mL} (Normal) Range: 0.358-3.74 [id number] BILAT SCRN DIGITAL & CAD Radiology Report See Note (Normal) Comments: Exam Number: [id number] DIGITAL BILATERAL MAMMOGRAM Digital oblique and craniocaudal views were obtained. Comparison ismade with the prior examination dated August 31, 2008.Interpretation was made with the benefit of the CAD system. HISTORYThis is a 59-year-old female patient with history of routine annualfollowup. FINDINGSThere is a moderate amount of fibroglandular tissue. Once again,there is evide nce of scattered bilateral calcifications. Noclustering is seen. No dominant mass lesion is present. Theoverlying skin is not thickened. There has been no change since priorexamination. Routine [facility] mammographic followup is suggested. IMPRESSION1. Scattered bilateral microcalcifications. There has been no changesince prior examination.2. Routine annual mammographic followup is suggested.3. Benign. BIRADS Category 2. A letter regarding the results has been sent to the patient. This interpretation was rendered by a radiologist certified under theMammography Quality Standards Act of 1992 (M QSA). The mammograms werealso examined with computer-aided detection software ([employer].). Reported By: CRUZITO KHAN :53 CBCD,SMEAR DIFF EOS 1 % (Normal) Range: 0-5 LYMPH 32 % (Normal) Range: 19-41 MONOCYTE 9 % (Normal) Range: 0-10 PLT EST SeeNote (Normal) Comments: Result: ADEQUATE RED CELL MORPH SeeNote {NORMAL} (Normal) Comments: Result: NORM C+C BAND 2 % (Normal) Range: 0-5 CELLS COUNTED 100 (Normal) HCT 40.4 % (Normal) Range: 37-47 HGB 13.5 g/dL (Normal) Range: 12.0-16.0 MCH 32.0 pg (Normal) Range: 27.0-32.0 MCHC 33.5 g/dL (Normal) Range: 32-36 MCV 95.3 fL (Normal) Range: 81-99 PLT 312 K/mm3 (Normal) Range: 150-450 RBC 4.24 {M/mm3} (Normal) Range: 4.2-5.4 RDW 13.7 % (Normal) Range: 11.6-14.6 SEGS 56 % (Normal) Range: 47-70 WBC 6.1 K/mm3 (Normal) Range: 4.4-11.0 :53 COMP METABOLIC A/G 1.0 {RATIO} (Normal) Range: 0.9-2.4 ALB 3.4 g/dL (Normal) Range: 3.4-5.0 ALK P 98 U/L (Normal) Range: 50-136 ALT 26 U/L (Abnormal) Range: 30-65 AST 18 U/L (Normal) Range: 15-37 BUN 12 mg/dL (Normal) Range: 7-18 BUN/CRE 15.0 {RATIO} (Normal) Range: 10-20 CA 8.4 mg/dL (Abnormal) Range: 8.5-10.1 CL 108 mmol/L (Abnormal) Range: 98-107 CO2 28.0 mmol/L (Normal) Range: 21.0-32.0 CREAT,SERUM 0.8 mg/dL (Normal) Range: 0.6-1.0 EST GFR 78 mL/min (Normal) EST GFR - AA 95 mL/min (Normal) GAP 7 (Normal) Range: 5-15 GLOB 3.4 g/dL (Normal) Range: 2.7-4.2 GLU 87 mg/dL (Normal) Range: 70-110 K 4.1 mmol/L (Normal) Range: 3.5-5.1 NA 143 mmol/L (Normal) Range: 136-145 T BILI 0.70 mg/dL (Normal) Range: 0.00-1.00 T PROT 6.8 g/dL (Normal) Range: 6.4-8.2 :53 LIPID CHOL 216 mg/dL (Abnormal) Comments: <200 mg/dL Desirable 200-240 mg/dL Borderline >240 mg/dL High Risk HDL 62 mg/dL (Normal) Comments: Reference Range HDL <40 mg/dL Low HDL Cholesterol HDL >or= 60 mg/dL High HDL Cholesterol LDL 133 mg/dL (Abnormal) Range: 0-130 TRIG 106 mg/dL (Normal) Comments: Serum Triglycerides Reference Interval Normal <150 mg/dL Borderline high 150 - 199 mg/dL High 200 - 499 mg/dL Very High > or = 500 mg/dL VLDL 21 mg/dL (Normal) Range: 5-40 :53 ROUTINE UA BILIRUBIN URINE SeeNote (Normal) Comments: Result: NEGATIVE CLARITY SeeNote (Normal) Comments: Result: SL CLOUDY COLOR YELLOW (Normal) GLUCOSE, UR SeeNote (Normal) Comments: Result: NEGATIVE KETONE UR SeeNote mg/dL (Normal) Comments: Result: NEGATIVE LEUK ESTERASE TRACE (Abnormal) NITRITE UR SeeNote (Normal) Comments: Result: NEGATIVE OCCULT BLOOD-UR SeeNote (Normal) Comments: Result: NEGATIVE pH UR 7.5 (Normal) Range: 5.0-8.0 PROT DIPSTX SeeNote (Normal) Comments: Result: NEGATIVE SP.GR. DIPSTX 1.015 (Normal) Range: 1.002-1.030 UROBILI 0.2 EU/dl (Normal) Range: 0.2 - 1.0 :53 TSH 1.60 {uIU/mL} (Normal) Range: 0.358-3.74 [id number] CULTURE, WOUND Comments: RIGHT CHEST WALL LESION GRAM STAIN See Note (Normal) Comments: GRAM STAIN 1+ RED CELL STROMA 2+ WHITE BLOOD CELLS NO ORGANISMS SEEN :11 LQD PAP [id number] Comments: CYTOLOGY INFORMATION:- CLINICAL INFORMATION: POSTMENOPAUSAL- DATE LMP/MENOPAUSE: NOT GIVEN MENOPAUSE- COLLECTION VIAL: Thin Prep Vial- CABLE TESTERS HELPER SOURCE: CERVICAL/ENDOCERVICAL- COLLECTION TECHNIQUE: BRUSH/SPATULA ADEQ Comment (Normal) Comments: Satisfactory for evaluation. Endocervical and/or squamous metaplasticcells (endocervical component) are present. COMM . (Normal) DIAGN Comment (Normal) Comments: NEGATIVE FOR INTRAEPITHELIAL LESION AND MALIGNANCY.REACTIVE CELLULAR CHANGES AND/OR REPAIR ARE PRESENT.CELLULAR CHANGES ASSOCIATED WITH ATROPHY ARE PRESENT. HPV RFLX Comment (Normal) Comments: The HPV DNA reflex criteria were not met with this specimenresult therefore, no HPV testing was performed. .Performed At: [address] [id number] [facility] Comment (Normal) Comments: The Pap smear is a screening test designed to aid in thedetection of premalignant and malignant conditions of theuterine cervix. It is not a diagnostic procedure andshould not be used as the sole means of detecting cervicalcancer. Both false-positive and false-negative reports dooccur. . PERFORM Comment (Normal) Comments: Kimberley Borges, Appliance Sales Associate (ASCP) SIGN Comment (Normal) Comments: Wendi Elaine MD, Pathologist [id number] BILAT SCRN DIGITAL & CAD Radiology Report See Note (Normal) Comments: Exam Number: [id number] MAMMOGRAM, BILATERAL SCREENING DIGITAL AND CAD HISTORYRoutine screening. Full field digital images were obtained in mediolateral oblique andcraniocaudal projections. CAD images w ere reviewed. The current study is compared to the examinations of July 2004 andNovember 2005. There is moderately dense fibroglandular parenchyma present. There isno skin thickening or retraction, ar chitectural distortion, or clusterof suspicious microcalcifications. There are scattered benigncalcifications throughout both breasts. Because of the patient'ssize, 2 mediolateral oblique views of eac h breast were necessary toimage the entire breast. On the left, 1 of these images demonstratesan apparent focal density just inferior to the plane of the nipple.This is not seen in the second image and must have representedsuperimposition. If there is no suspicious palpable abnormality,followup mammogram in 1 year is recommended. Note is made that asmall metal marker is in place on a mole on the left. IMPRESSIONThere is no radiographic evidence of malignancy identified. FINAL ASSESSMENTBenign findings. BIRADS Category 2. A letter regarding these results has been sent to the patient. This int erpretation was rendered by a radiologist certified under theMammography Quality Standards Act of 1992 (MQSA). The mammograms werealso examined with computer- aided detection software ([employer].). Reported By: SEAN AMAYA M.D. [id number] DEXA BONE DENSITY STUDY (HP) Radiology Report See Note (Normal) Comments: Exam Number: [id number] BONE DENSITOMETRY HISTORYPostmenopausal. TECHNIQUE Bone densitometry of the lumbar spine and left hip was performed. Thebest criteria for evaluation of osteoporosis is the T- value, whichrepresents the comparison of the patient's bone mass to an expectedpeak bone mass. For most patients, the mean T-value of L1 through L4is used to evaluate the lumbar spine. Based on the ne [place] WorldHealth Organization classifications, the hip is evaluated by utilizingthe lower of the T-value of the total hip or the T-value of thefemoral neck. FINDINGSIn this patient, the mean T-value o f L1 through L4 is 0.4 which isnormal. Bone mineral density is measured at 0.1% greater than [id number]. Digital lateral view for evaluation of vertebral deformityonly demonstrates no obvious compression fractures. The T-value ofthe left femoral neck is -0.8 which is normal. The T-value of thetotal hip is -0.3 which is normal. Bone mineral density is measuredat 5% less than in 2004. IMPRESSIONBone d ensitometry of the lumbar spine and left hip is within normallimits. Reported By: SEAN AMAYA M.D. :08 CBCD,SMEAR DIFF BAND 3 % (Normal) Range: 0-5 CELLS COUNTED 100 (Normal) EOS 3 % (Normal) Range: 0-5 HCT 41.2 % (Normal) Range: 37-47 HGB 14.0 g/dL (Normal) Range: 12.0-16.0 LYMPH 33 % (Normal) Range: 19-41 MCH 31.9 pg (Normal) Range: 27.0-32.0 MCHC 34.0 g/dL (Normal) Range: 32-36 MCV 93.9 fL (Normal) Range: 81-99 MONOCYTE 2 % (Normal) Range: 0-10 PLT 363 K/mm3 (Normal) Range: 150-450 PLT EST SeeNote (Normal) Comments: Result: ADEQUATE RBC 4.39 {M/mm3} (Normal) Range: 4.2-5.4 RDW 13.1 % (Normal) Range: 11.6-14.6 REACTIVE LYMPH 1+ (Normal) RED CELL MORPH SeeNote {NORMAL} (Normal) Comments: Result: NORM C+C SEGS 59 % (Normal) Range: 47-70 WBC 6.6 K/mm3 (Normal) Range: 4.4-11.0 :08 COMP METABOLIC A/G 1.1 {RATIO} (Normal) Range: 0.9-2.4 ALB 3.6 g/dL (Normal) Range: 3.4-5.0 ALK P 116 U/L (Normal) Range: 50-136 ALT 31 U/L (Normal) Range: 30-65 AST 17 U/L (Normal) Range: 15-37 BUN 12 mg/dL (Normal) Range: 7-18 BUN/CRE 12.0 {RATIO} (Normal) Range: 10-20 CA 9.0 mg/dL (Normal) Range: 8.5-10.1 CL 104 mmol/L (Normal) Range: 98-107 CO2 30.6 mmol/L (Normal) Range: 21.0-32.0 CREAT,SERUM 1.0 mg/dL (Normal) Range: 0.6-1.0 GAP 4 (Abnormal) Range: 5-15 GLOB 3.3 g/dL (Normal) Range: 2.7-4.2 GLU 90 mg/dL (Normal) Range: 70-110 K 3.9 mmol/L (Normal) Range: 3.5-5.1 NA 139 mmol/L (Normal) Range: 136-145 T BILI 0.43 mg/dL (Normal) Range: 0.00-1.00 T PROT 6.9 g/dL (Normal) Range: 6.4-8.2 :08 LIPID CHOL 207 mg/dL (Abnormal) Comments: <200 mg/dL Desirable 200-240 mg/dL Borderline >240 mg/dL High Risk HDL 67 mg/dL (Normal) Comments: Reference Range HDL <40 mg/dL Low HDL Cholesterol HDL >or= 60 mg/dL High HDL Cholesterol LDL 121 mg/dL (Normal) Range: 0-130 TRIG 95 mg/dL (Normal) Comments: Serum Triglycerides Reference Interval Normal <150 mg/dL Borderline high 150 - 199 mg/dL High 200 - 499 mg/dL Very High > or = 500 mg/dL VLDL 19 mg/dL (Normal) Range: 5-40 :08 MG 2.0 mg/dL (Normal) Range: 1.5-2.2 :08 T3, FREE 82036 2.9 pg/mL (Normal) Range: 2.3-4.2 Comments: Performed At: [address] [id number] :08 T4 FREE,DIRECT 1.0 ng/dL (Normal) Range: 0.89-1.76 :08 TSH 1.40 {uIU/mL} (Normal) Range: 0.34-4.82 [id number] LOWER EXT/JT ONLY (ROUTINE) Radiology Report See Note (Normal) Comments: Exam Number: [id number] MRI OF THE RIGHT KNEE STATEMENTRight knee pain. History of remote injury. COMPARISONRadiograph of the right knee July 26, 2008. TECHNIQUERoutine T1 and T2 weighted imaging se quences were acquired. Sagittal,axial and coronal images were reviewed. FINDINGSThere are mild tricompartment degenerative changes present. There wasmild thinning of the articular cartilage. No focal osteochondraldefect. There is a small joint effusion. There is moderatechondromalacia referrable to the patellofemoral joint including focalareas of subchondral osteitis. The anterior and posterior cruciateligaments and the medial and lateral collateral ligament complexes aremaintained. There is no evidence for acute avulsion injury. There isno bone marrow edema. Curvilinear calcifications asso ciated with themedial femoral condyle is most likely secondary to a remote or chronicinjury of the proximal medial collateral ligament. There is mildfullness of the medial collateral ligament likely se condary to chronicinjury or a grade 1 sprain. There is no disruption of ligamentfibers. There is a popliteal cyst present measuring 1.8 x 1.6 x 4.5cm in AP transverse and craniocaudal dimension respec tively. There ismild superficial soft tissue edema. There are varicosities along thelateral aspect of the knee. There is a focal contour irregularity ofthe undersurface of the body and posterior horn of the medial meniscusconcerning for a peripheral tear. IMPRESSION1. No evidence for acute avulsion injury of the MCL. There isfullness of the tendon fibers likely secondary to chronic injury orgrade 1 sprain. The curvilinear calcification on radiograph,therefore, would imply remote or chronic injury. 2. Tricompartment degenerative changes including a joint effusion andmild superficial soft tissue edema. 3. Prominent chondromalacia of the patellofemoral joint. 4. Popliteal cyst. 5. Suspect a peripheral undersurface tear of the body and posteriorhorn of the medial meniscus. Reported By: ABDULAZIZ HENRY M.D. [id number] KNEE,4 OR MORE VIEWS (MT) Radiology Report See Note (Normal) Comments: Exam Number: [id number] RIGHT KNEE, 4 VIEWS REASON FOR EXAMINATIONRight knee pain, worse medially. Four views are presented. There is no acute fracture or dislocation. There is no significant joint effu david. Articular surfaces are smoothand well maintained. There is curvilinear calcification closely associated with theproximal aspect of the medial femoral condyle. This potentiallyrepresents soft tis gertrudis ossification versus an avulsion injury of themedial collateral ligament. Please correlate with symptoms at thesite. There appears to be overlying soft tissue swelling. IMPRESSIONNo acute right kne e fracture or joint effusion. Curvilinearcalcification associated with the proximal aspect of the medialfemoral condyle and overlying soft tissue swelling may representavulsion injury of the medial col lateral ligament versus soft tissueossification. Please correlate with the clinical setting. ConsiderMRI as indicated. Reported By: CATHLEEN REYES M.D. CULTURE, THROAT See Note (Normal) Comments: Normal throat bhavesh isolated. No beta-hemolyticstreptococcus isolated. :30 :20 Rapid Strep Test, Office ([id number]) Comments: neg Rapid Strep Test, Office Negative (Normal) :54 CBCD,SMEAR DIFF CELLS COUNTED 100 (Normal) EOS 2 % (Normal) Range: 0-5 HCT 39.6 % (Normal) Range: 37-47 HGB 13.8 g/dL (Normal) Range: 12.0-16.0 LYMPH 45 % (Abnormal) Range: 19-41 MCH 31.3 pg (Normal) Range: 27.0-32.0 MCHC 34.7 g/dL (Normal) Range: 32-36 MCV 90.2 fL (Normal) Range: 81-99 MONOCYTE 8 % (Normal) Range: 0-10 PLT 351 K/mm3 (Normal) Range: 150-450 PLT EST SeeNote (Normal) Comments: Result: ADEQUATE RBC 4.39 {M/mm3} (Normal) Range: 4.2-5.4 RDW 13.2 % (Normal) Range: 11.6-14.6 RED CELL MORPH SeeNote {NORMAL} (Normal) Comments: Result: NORM C+C SEGS 45 % (Abnormal) Range: 47-70 WBC 6.4 K/mm3 (Normal) Range: 4.4-11.0 :54 COMP METABOLIC A/G 1.1 {RATIO} (Normal) Range: 0.9-2.4 ALB 3.5 g/dL (Normal) Range: 3.4-5.0 ALK P 111 U/L (Normal) Range: 50-136 ALT 39 [iU]/L (Normal) Range: 30-65 AST 20 U/L (Normal) Range: 15-37 BUN 16 mg/dL (Normal) Range: 7-18 BUN/CRE 16.0 {RATIO} (Normal) Range: 10-20 CA 8.5 mg/dL (Normal) Range: 8.5-10.1 CL 105 mmol/L (Normal) Range: 98-107 CO2 28.6 mmol/L (Normal) Range: 21.0-32.0 CREAT,SERUM 1.0 mg/dL (Normal) Range: 0.6-1.0 GAP 4 (Abnormal) Range: 5-15 GLOB 3.3 g/dL (Normal) Range: 2.7-4.2 GLU 91 mg/dL (Normal) Range: 70-110 K 4.5 mmol/L (Normal) Range: 3.5-5.1 NA 138 mmol/L (Normal) Range: 136-145 T BILI 0.51 mg/dL (Normal) Range: 0.00-1.00 T PROT 6.8 g/dL (Normal) Range: 6.4-8.2 :54 LIPID CHOL 207 mg/dL (Abnormal) Comments: <200 mg/dL Desirable 200-240 mg/dL Borderline >240 mg/dL High Risk HDL 55 mg/dL (Normal) Comments: Reference Range HDL <40 mg/dL Low HDL Cholesterol HDL >or= 60 mg/dL High HDL Cholesterol LDL 127 mg/dL (Normal) Range: 0-130 TRIG 123 mg/dL (Normal) Comments: Serum Triglycerides Reference Interval Normal <150 mg/dL Borderline high 150 - 199 mg/dL High 200 - 499 mg/dL Very High > or = 500 mg/dL VLDL 25 mg/dL (Normal) Range: 5-40 :54 TSH 1.42 {uIU/mL} (Normal) Range: 0.34-4.82 :37 BMP BUN 11 mg/dL (Normal) Range: 7-18 BUN/CRE 11.0 {RATIO} (Normal) Range: 10-20 CA 9.0 mg/dL (Normal) Range: 8.5-10.1 CL 106 mmol/L (Normal) Range: 98-107 CO2 27.1 mmol/L (Normal) Range: 21.0-32.0 Comments: Please Note Reference Interval Change CREAT,SERUM 1.0 mg/dL (Normal) Range: 0.6-1.0 GAP 8 (Normal) Range: 5-15 GLU 100 mg/dL (Normal) Range: 70-110 K 3.9 mmol/L (Normal) Range: 3.5-5.1 NA 141 mmol/L (Normal) Range: 136-145 :37 C-REACTIVE PROT 2.29 mg/L (Normal) Range: 0.0-6.0 Comments: Test performed using the Dimension C-Reactive ProteinExtended Range assay method. This assay meets the AHA/CDC 2003 recommendations fordetermining patients at high risk for cardiovasculardisease. Reference: High risk CRP >3.0 mg/L :37 CBCD,SMEAR DIFF BAND 2 % (Normal) Range: 0-5 BASOPHIL 2 % (Abnormal) Range: 0-1 CELLS COUNTED 100 (Normal) EOS 1 % (Normal) Range: 0-5 HCT 41.0 % (Normal) Range: 37-47 HGB 14.0 g/dL (Normal) Range: 12.0-16.0 LYMPH 35 % (Normal) Range: 19-41 MCH 31.2 pg (Normal) Range: 27.0-32.0 MCHC 34.1 g/dL (Normal) Range: 32-36 MCV 91.5 fL (Normal) Range: 81-99 MONOCYTE 6 % (Normal) Range: 0-10 PLT 375 K/mm3 (Normal) Range: 150-450 PLT EST SeeNote (Normal) Comments: Result: ADEQUATE RBC 4.49 {M/mm3} (Normal) Range: 4.2-5.4 RDW 13.1 % (Normal) Range: 11.6-14.6 RED CELL MORPH SeeNote {NORMAL} (Normal) Comments: Result: NORM C+C SEGS 54 % (Normal) Range: 47-70 WBC 5.7 K/mm3 (Normal) Range: 4.4-11.0 :37 ESR SED RATE 14 mm/h (Normal) Range: 0-30 [id number] ABDOMEN WITH CONTRAST Radiology Report See Note (Normal) Comments: Exam Number: [id number] COMPUTED TOMOGRAPHY OF THE ABDOMEN WITH ORAL AND IV CONTRAST INDICATIONA 57-year-old female with epigastric pain, nausea. COMPARISONNone. TECHNIQUEContiguous transaxial images wer e obtained from the lung bases to thelevel of S1 following the uneventful administration of 100 cc [id number] intravenously. Oral contrast was also administered. REPORTLimited sections through the richar g bases show no consolidation orpleural fluid. The visualized heart chambers are unremarkable. There is enlargement of the pancreatic head which is lower inattenuation compared with the remainder of the pancreas. There areextensive peripancreatic inflammatory changes within the lesser sac. The findings are compatible with acute pancreatitis. No pseudocystformation is identified. The body and linda l regions of the pancreasare unremarkable. Adjacent to the pancreatic tail, there is a focaldiverticulum noted at the splenic flexure, with associated wallthickening and surrounding inflammatory change . This suggests focalacute diverticulitis. No additional inflammatory changes are seenalong the body and tail regions of the pancreas. No free air isidentified. No peridiverticular abscess. The li florina, gallbladder, spleen, adrenal glands and kidneys areunremarkable. The visualized small bowel segments are not dilated. The remainder of the visualized colon is unremarkable. The abdominalaorta is normal in caliber. There is normal enhancement of the [place] splenic veins. There is moderate to severe spinal stenosis at L5 secondary tocongenitally- shortened pedicles and severe bilateral facet arthropathy. Mild degenerative changes are noted in the remainder ofthe visualized thoracolumbar spine. There is a mild rotatorylevoscoliosis at the upper lumbar spine. IMPRESSION1. There is enlargem ent of the pancreatic head, with extensiveperipancreatic inflammatory changes in the lesser sac consistent withacute pancreatitis. No pseudocyst formation.2. There is a prominent diverticulum at the s plenic flexure withassociated inflammatory changes and wall thickening suggesting focalacute diverticulitis. This process appears to be separate from thepancreatitis.3. Moderate to severe spinal steno sis at L5 as described. Reported By: RIZWAN MCCAIN M.D. C-REACTIVE PROT 33.72 mg/L Comments: CALL RESULTS TO DR MAYORGA The date and/or time of collection was not indicated on therequisition as required by state and federal law. The dateof receipt of the specimen was used as the collection dateif not supplied. :00 (Abnormal) Range: 0.0-6.0 Comments: Test performed using the Dimension C-Reactive ProteinExtended Range assay method. This assay meets the AHA/CDC 2003 recommendations fordetermining patients at high risk for cardiovasculardisease. Reference: High risk CRP >3.0 mg/L :00 CBCD,SMEAR DIFF Comments: CALL RESULTS TO DR MAYORGA The date and/or time of collection was not indicated on therequisition as required by state and federal law. The dateof receipt of the specimen was used as the collection dateif not supplied. BAND 7 % (Abnormal) Range: 0-5 CELLS COUNTED 100 (Normal) HCT 38.9 % (Normal) Range: 37-47 HGB 13.6 g/dL (Normal) Range: 12.0-16.0 LYMPH 13 % (Abnormal) Range: 19-41 MCH 32.2 pg (Abnormal) Range: 27.0-32.0 MCHC 34.8 g/dL (Normal) Range: 32-36 MCV 92.3 fL (Normal) Range: 81-99 MONOCYTE 6 % (Normal) Range: 0-10 PLT 363 K/mm3 (Normal) Range: 150-450 PLT EST SeeNote (Normal) Comments: Result: ADEQUATE RBC 4.22 {M/mm3} (Normal) Range: 4.2-5.4 RDW 12.9 % (Normal) Range: 11.6-14.6 RED CELL MORPH SeeNote {NORMAL} (Normal) Comments: Result: NORM C&C SEGS 74 % (Abnormal) Range: 47-70 WBC 10.3 K/mm3 (Normal) Range: 4.4-11.0 :00 COMP METABOLIC Comments: CALL RESULTS TO DR MAYORGA The date and/or time of collection was not indicated on therequisition as required by state and federal law. The dateof receipt of the specimen was used as the collection dateif not supplied. A/G 1.4 {RATIO} (Normal) Range: 0.9-2.4 ALB 3.7 g/dL (Normal) Range: 3.4-5.0 ALK P 102 U/L (Normal) Range: 50-136 ALT 42 [iU]/L (Normal) Range: 30-65 AST 19 U/L (Normal) Range: 15-37 BUN 14 mg/dL (Normal) Range: 7-18 BUN/CRE 15.6 {RATIO} (Normal) Range: 10-20 CA 9.4 mg/dL (Normal) Range: 8.5-10.1 CL 98 mmol/L (Normal) Range: 98-107 CO2 28.4 mmol/L (Normal) Range: 21.0-32.0 Comments: Please Note Reference Interval Change CREAT,SERUM 0.9 mg/dL (Normal) Range: 0.6-1.0 GAP 9 (Normal) Range: 5-15 GLOB 2.7 g/dL (Normal) Range: 2.7-4.2 Comments: Please Note Reference Interval Change GLU 103 mg/dL (Normal) Range: 70-110 K 4.4 mmol/L (Normal) Range: 3.5-5.1 NA 135 mmol/L (Abnormal) Range: 136-145 T BILI 0.66 mg/dL (Normal) Range: 0.00-1.00 T PROT 6.4 g/dL (Normal) Range: 6.4-8.2 :00 ESR Comments: CALL RESULTS TO DR MAYORGA The date and/or time of collection was not indicated on therequisition as required by state and federal law. The dateof receipt of the specimen was used as the collection dateif not supplied. SED RATE 37 mm/h (Abnormal) Range: 0-30 :13 Urinalysis, Office ([id number]) UA - LEUKOCYTE ESTERASE Negative (Normal) UA - NITRITE Negative (Normal) UA - PH 5.0 (Normal) UA - PROTEIN Negative mg/dL (Normal) URINE UROBILINGN FARIBA TIMED 2 mg/dL (Normal) UA - BILIRUBIN Negative (Normal) UA - BLOOD Hemolyzed Trace (Normal) UA - GLUCOSE Negative (Normal) UA - KETONES Negative mg/dL (Normal) UA - SPECIFIC GRAVITY 1.025 (Normal) :57 COMP METABOLIC A/G 1.1 {RATIO} (Normal) Range: 0.9-2.4 ALB 3.6 g/dL (Normal) Range: 3.4-5.0 ALK P 108 U/L (Normal) Range: 50-136 ALT 34 [iU]/L (Normal) Range: 30-65 AST 19 U/L (Normal) Range: 15-37 BUN 12 mg/dL (Normal) Range: 7-18 BUN/CRE 10.9 {RATIO} (Normal) Range: 10-20 CA 8.8 mg/dL (Normal) Range: 8.5-10.1 CL 104 mmol/L (Normal) Range: 98-107 CO2 31.8 mmol/L (Normal) Range: 21.0-32.0 Comments: Please Note Reference Interval Change CREAT,SERUM 1.1 mg/dL (Abnormal) Range: 0.6-1.0 GAP 5 (Normal) Range: 5-15 GLOB 3.2 g/dL (Normal) Range: 2.7-4.2 Comments: Please Note Reference Interval Change GLU 96 mg/dL (Normal) Range: 70-110 K 4.5 mmol/L (Normal) Range: 3.5-5.1 NA 141 mmol/L (Normal) Range: 136-145 T BILI 0.57 mg/dL (Normal) Range: 0.00-1.00 T PROT 6.8 g/dL (Normal) Range: 6.4-8.2 :57 LIPID CHOL 194 mg/dL (Normal) Comments: <200 mg/dL Desirable 200-240 mg/dL Borderline >240 mg/dL High Risk HDL 59 mg/dL (Normal) Comments: Reference Range HDL <40 mg/dL Low HDL Cholesterol HDL >or= 60 mg/dL High HDL Cholesterol LDL 117 mg/dL (Normal) Range: 0-130 TRIG 88 mg/dL (Normal) Comments: Serum Triglycerides Reference Interval Normal <150 mg/dL Borderline high 150 - 199 mg/dL High 200 - 499 mg/dL Very High > or = 500 mg/dL VLDL 18 mg/dL (Normal) Range: 5-40 :57 TSH 0.83 {uIU/mL} (Normal) Range: 0.34-4.82 [id number] Urinalysis, Office ([id number]) Comments: done-jjp UA - BILIRUBIN Negative (Normal) UA - BLOOD Negative (Normal) UA - GLUCOSE Negative (Normal) UA - KETONES Negative mg/dL (Normal) UA - LEUKOCYTE ESTERASE Negative (Normal) UA - NITRITE Negative (Normal) UA - PH 5.0 (Normal) UA - PROTEIN Negative mg/dL (Normal) UA - SPECIFIC GRAVITY 1.005 (Normal) URINE UROBILINGN FARIBA TIMED Normal mg/dL (Normal) [id number] Urinalysis, Office ([id number]) Comments: done UA - BLOOD Hemolyzed Large (Normal) UA - LEUKOCYTE ESTERASE Moderate (Normal) UA - NITRITE Negative (Normal) UA - PH 6.5 (Normal) UA - PROTEIN Negative mg/dL (Normal) UA - SPECIFIC GRAVITY 1.005 (Normal) URINE UROBILINGN FARIBA TIMED Normal mg/dL (Normal) UA - BILIRUBIN Negative (Normal) UA - GLUCOSE Negative (Normal) UA - KETONES Negative mg/dL (Normal) :30 CULTURE, URINE URINE CULTURE See Note {CFU/mL} Comments: COLONY COUNT >100,000 ORGANISM 1: PRESUMPTIVE E. COLI PRESUMPTIVE E. COLI: REACTION AMOXICILLIN/CLAVULANIC ACID $$ <=8 S AMPICILLIN G (Normal) N $ 2 S CARBENICILLIN $$$ <=16 S CEFAZOLIN $ <=8 S CEFOXITIN $$ 4 S CEFTRIAXONE $$$ <=8 S CEFUROXIME $$ <=4 S CIPROFLOXACIN GN $$$ <=0.5 S GENTAMICIN GN $ &l t;=0.5 S LEVOFLOXACIN $$ <=1 S NALIDIXIC ACID $$$ <=16 S NITROFURANTOIN $ <=32 S OFLOXACIN $$$ <=1 S TETRACYCLINE $$ 2 S TICARCILLIN GN NOT PSEUDO $$$ <=16 S TRIMETHOPRIM/SULFAMETHOXAZ $$ <=10 S :4 ALB 3.7 g/dL (Normal) Comments: PLEASE ADD ALBUMIN TO BLOOD DRAWN 01/02/07 PER FAXED ORDER. 7 Range: 3.4-5.0 :47 BMP BUN 13 mg/dL (Normal) Range: 7-18 BUN/CRE 14.4 {RATIO} (Normal) Range: 10-20 CA 8.4 mg/dL (Abnormal) Range: 8.5-10.1 CL 106 mmol/L (Normal) Range: 98-107 CO2 31.0 mmol/L (Abnormal) Range: 22.0-29.0 CREAT,SERUM 0.9 mg/dL (Normal) Range: 0.6-1.0 GAP 6 (Normal) Range: 5-15 GLU 82 mg/dL (Normal) Range: 70-110 K 4.1 mmol/L (Normal) Range: 3.5-5.1 NA 143 mmol/L (Normal) Range: 136-145 :54 CBCD,SMEAR DIFF BAND 2 % (Normal) Range: 0-5 CELLS COUNTED 100 (Normal) EOS 3 % (Normal) Range: 0-5 HCT 39.6 % (Normal) Range: 37-47 HGB 13.5 g/dL (Normal) Range: 12.0-16.0 LYMPH 36 % (Normal) Range: 19-41 MCH 31.2 pg (Normal) Range: 27.0-32.0 MCHC 34.1 g/dL (Normal) Range: 32-36 MCV 91.4 fL (Normal) Range: 81-99 MONOCYTE 9 % (Normal) Range: 0-10 PLT 331 K/mm3 (Normal) Range: 150-450 PLT EST SeeNote (Normal) Comments: Result: ADEQUATE RBC 4.34 {M/mm3} (Normal) Range: 4.2-5.4 RDW 12.5 % (Normal) Range: 11.6-14.6 RED CELL MORPH SeeNote {NORMAL} (Normal) Comments: Result: NORM C&C SEGS 50 % (Normal) Range: 47-70 WBC 5.8 K/mm3 (Normal) Range: 4.4-11.0 :54 COMP METABOLIC A/G 1.1 {RATIO} (Normal) Range: 0.9-2.4 ALB 3.5 g/dL (Normal) Range: 3.4-5.0 ALK P 108 U/L (Normal) Range: 50-136 ALT 36 [iU]/L (Normal) Range: 30-65 AST 18 U/L (Normal) Range: 15-37 BUN 16 mg/dL (Normal) Range: 7-18 BUN/CRE 14.5 {RATIO} (Normal) Range: 10-20 CA 8.7 mg/dL (Normal) Range: 8.5-10.1 CL 108 mmol/L (Abnormal) Range: 98-107 CO2 31.3 mmol/L (Abnormal) Range: 22.0-29.0 CREAT,SERUM 1.1 mg/dL (Abnormal) Range: 0.6-1.0 GAP 3 (Abnormal) Range: 5-15 GLOB 3.1 g/dL (Normal) Range: 2.3-3.5 GLU 91 mg/dL (Normal) Range: 70-110 K 4.1 mmol/L (Normal) Range: 3.5-5.1 NA 142 mmol/L (Normal) Range: 136-145 T BILI 0.31 mg/dL (Normal) Range: 0.00-1.00 T PROT 6.6 g/dL (Normal) Range: 6.4-8.2 :54 MICROALBUMIN,UR 4.9 mg/L (Normal) :54 PFLIP CHOL 193 mg/dL (Normal) Comments: <200 mg/dL Desirable 200-240 mg/dL Borderline >240 mg/dL High Risk HDL 52 mg/dL (Normal) Comments: Reference Range HDL <40 mg/dL Low HDL Cholesterol HDL >or= 60 mg/dL High HDL Cholesterol LDL 124 mg/dL (Normal) Range: 0-130 TRIG 85 mg/dL (Normal) Comments: Serum Triglycerides Reference Interval Normal <150 mg/dL Borderline high 150 - 199 mg/dL High 200 - 499 mg/dL Very High > or = 500 mg/dL VLDL 17 mg/dL (Normal) Range: 5-40 :54 ROUTINE UA BILIRUBIN URINE SeeNote (Normal) Comments: Result: NEGATIVE CLARITY CLEAR (Normal) COLOR YELLOW (Normal) GLUCOSE, UR SeeNote (Normal) Comments: Result: NEGATIVE KETONE UR SeeNote mg/dL (Normal) Comments: Result: NEGATIVE LEUK ESTERASE SeeNote (Normal) Comments: Result: NEGATIVE NITRITE UR SeeNote (Normal) Comments: Result: NEGATIVE OCCULT BLOOD-UR SeeNote (Normal) Comments: Result: NEGATIVE pH UR 8.5 (Normal) Range: 5.0-8.0 PROT DIPSTX SeeNote (Normal) Comments: Result: NEGATIVE SP.GR. DIPSTX 1.020 (Normal) Range: 1.002-1.030 UROBILI 0.2 EU/dl (Normal) Range: 0.2 - 1.0 :54 TSH 1.28 {uIU/mL} (Normal) Range: 0.34-4.82 Plan of Care Name Dates Details Instructions BMI 30.0-30.9,adult : Eprescribed prescriptions (G8553) Indication: BMI 30.0-30.9,adult Nonsmoker : Eprescribed prescriptions (G8553) Indication: Nonsmoker Essential hypertension : Follow up in 6 months Indication: Essential hypertension Other and unspecified hyperlipidemia : Cholesterol mgmt Indication: Other and unspecified hyperlipidemia Essential hypertension : Diet, Exercise, and Wt loss Indication: Essential hypertension Essential hypertension : HTN/CAD Red Flags Indication: Essential hypertension Acquired hypothyroidism : Continue Current Prescription(s) Indication: Acquired hypothyroidism Acquired hypothyroidism : Reviewed Lab Indication: Acquired hypothyroidism BMI 29.0-29.9,adult : Follow up if no improvement or if symptoms worsen Indication: BMI 29.0-29.9,adult Conjunctivitis : *Conjunctivitis Education Indication: Conjunctivitis Nonsmoker : Eprescribed prescriptions (G8553) Indication: Nonsmoker Essential hypertension : Follow up in 6 months-- after 06/29 can add medicare physical to this gen med --30mins please Indication: Essential hypertension Osteopenia of the elderly : Reviewed Diagnostic Tests Indication: Osteopenia of the elderly Essential hypertension : Diet, Exercise, and Wt loss Indication: Essential hypertension Essential hypertension : HTN/CAD Red Flags Indication: Essential hypertension Nonsmoker : Follow up if no improvement or if symptoms worsen Indication: Nonsmoker Flu-like symptoms : Flu (Influenza) *: flu Indication: Flu-like symptoms Flu-like symptoms : Eprescribed prescriptions (G8553) Indication: Flu-like symptoms Hypercholesteremia : Cholesterol mgmt Indication: Hypercholesteremia Essential hypertension : Follow up in 6 months Indication: Essential hypertension Encounter for annual general medical examination with abnormal findings in adult : fall reduction handout Indication: Encounter for annual general medical examination with abnormal findings in adult Encounter for annual general medical examination with abnormal findings in adult : elderly packet given Indication: Encounter for annual general medical examination with abnormal findings in adult Encounter for annual general medical examination with abnormal findings in adult : advance planning information Indication: Encounter for annual general medical examination with abnormal findings in adult Encounter for annual general medical examination with abnormal findings in adult : Self breast exam Indication: Encounter for annual general medical examination with abnormal findings in adult Encounter for annual general medical examination with abnormal findings in adult : *Well Female Maintenance (KF) Indication: Encounter for annual general medical examination with abnormal findings in adult Encounter for screening for malignant neoplasm of colon (Renamed from Special screening for malignant neoplasms, colon) : *Colon Cancer Screening Indication: Encounter for screening for malignant neoplasm of colon (Renamed from Special screening for malignant neoplasms, colon) Essential hypertension : HTN/CAD Red Flags Indication: Essential hypertension Essential hypertension : Follow up in 4 months Indication: Essential hypertension Essential hypertension : Diet, Exercise, and Wt loss Indication: Essential hypertension Essential hypertension : HTN/CAD Red Flags Indication: Essential hypertension Other and unspecified hyperlipidemia : Cholesterol mgmt Indication: Other and unspecified hyperlipidemia URINARY TRACT INFECTION, SITE NOT SPECIFIED : Continue Current Prescription(s) Indication: URINARY TRACT INFECTION, SITE NOT SPECIFIED URINARY TRACT INFECTION, SITE NOT SPECIFIED : Follow up if no improvement or if symptoms worsen Indication: URINARY TRACT INFECTION, SITE NOT SPECIFIED URINARY TRACT INFECTION, SITE NOT SPECIFIED : Bladder Infection (Cystitis): uti Indication: URINARY TRACT INFECTION, SITE NOT SPECIFIED Annual Medicare Phyiscal WITHOUT abnormal findings (Renamed from Encounter for general adult medical examination without abnormal findings) : elderly packet given Indication: Annual Medicare Phyiscal WITHOUT abnormal findings (Renamed from Encounter for general adult medical examination without abnormal findings) Annual Medicare Phyiscal WITHOUT abnormal findings (Renamed from Encounter for general adult medical examination without abnormal findings) : fall reduction handout Indication: Annual Medicare Phyiscal WITHOUT abnormal findings (Renamed from Encounter for general adult medical examination without abnormal findings) Annual Medicare Phyiscal WITHOUT abnormal findings (Renamed from Encounter for general adult medical examination without abnormal findings) : *Weight Loss Discussion Indication: Annual Medicare Phyiscal WITHOUT abnormal findings (Renamed from Encounter for general adult medical examination without abnormal findings) Annual Medicare Phyiscal WITHOUT abnormal findings (Renamed from Encounter for general adult medical examination without abnormal findings) : advance planning information Indication: Annual Medicare Phyiscal WITHOUT abnormal findings (Renamed from Encounter for general adult medical examination without abnormal findings) Encounter for screening for malignant neoplasm of colon (Renamed from Special screening for malignant neoplasms, colon) : Self breast exam Indication: Encounter for screening for malignant neoplasm of colon (Renamed from Special screening for malignant neoplasms, colon) Encounter for screening for malignant neoplasm of colon (Renamed from Special screening for malignant neoplasms, colon) : *Well Female Maintenance (KF) Indication: Encounter for screening for malignant neoplasm of colon (Renamed from Special screening for malignant neoplasms, colon) Encounter for screening for malignant neoplasm of colon (Renamed from Special screening for malignant neoplasms, colon) : *Colon Cancer Screening Indication: Encounter for screening for malignant neoplasm of colon (Renamed from Special screening for malignant neoplasms, colon) Essential hypertension : Follow up in 6 months Indication: Essential hypertension Acquired hypothyroidism : Continue Current Prescription(s) Indication: Acquired hypothyroidism Essential hypertension : Reviewed Lab Indication: Essential hypertension Hypercholesteremia : Cholesterol mgmt Indication: Hypercholesteremia Essential hypertension : Eprescribed prescriptions (G8553) Indication: Essential hypertension Cough : Eprescribed prescriptions (G8553) Indication: Cough Eye pain : Follow up if no improvement or if symptoms worsen Indication: Eye pain Conjunctivitis : *Conjunctivitis Education Indication: Conjunctivitis Eye pain : Eprescribed prescriptions (G8553) Indication: Eye pain Allergic rhinitis due to other allergen : Eprescribed prescriptions (G8553) Indication: Allergic rhinitis due to other allergen Wheezing : Eprescribed prescriptions (G8553) Indication: Wheezing Diarrhea : Follow up if no improvement or if symptoms worsen Indication: Diarrhea Hypercholesteremia : Diet, Exercise, and Wt loss Indication: Hypercholesteremia Hypercholesteremia : Blood Pressure: hypertension Indication: Hypercholesteremia Hypercholesteremia : Eprescribed prescriptions (G8553) Indication: Hypercholesteremia Encounter for screening for malignant neoplasm of cervix : *[facility] Female Maintenance () Indication: Encounter for screening for malignant neoplasm of cervix Sinusitis, acute : *Antibiotic Usage Education - Female Indication: Sinusitis, acute Cough : *Antibiotic Usage Education - Female Indication: Cough Cough : Eprescribed prescriptions (G8553) Indication: Cough Cough : Cough Medicines, Nonprescription: cough Indication: Cough Essential hypertension : Eprescribed prescriptions (G8553) Indication: Essential hypertension Need for prophylactic vaccination and inoculation against influenza : Flu (Influenza) *: flu shot Indication: Need for prophylactic vaccination and inoculation against influenza Acquired hypothyroidism : Follow up if no improvement or if symptoms worsen Indication: Acquired hypothyroidism Hypotension : Reviewed Diagnostic Tests Indication: Hypotension Acquired hypothyroidism : Reviewed Lab Indication: Acquired hypothyroidism Acquired hypothyroidism : Follow up in 2 weeks Indication: Acquired hypothyroidism Hypercholesteremia : Eprescribed prescriptions (G8553) Indication: Hypercholesteremia Hematuria : Urinary Tract Infection in Women *: urinary infection Indication: Hematuria Osteoarthrosis, not specified whether generalized/localized, lower leg : Reviewed Diagnostic Tests Indication: Osteoarthrosis, not specified whether generalized/localized, lower leg Knee pain : Follow up next week Indication: Knee pain Dysuria : Urinary Tract Infection in Women *: urinary tract infection Indication: Dysuria Well woman exam : Self breast exam Indication: Well woman exam Well woman exam : *Well Female Maintenance (KF) Indication: Well woman exam Well woman exam : Pap/Pelvic/Bimanual/Rectal/Breast Exam was done. Indication: Well woman exam Encounter for Medicare annual wellness exam : *Colon Cancer Screening Indication: Encounter for Medicare annual wellness exam Encounter for Medicare annual wellness exam : fall reduction handout Indication: Encounter for Medicare annual wellness exam Encounter for Medicare annual wellness exam : elderly packet given Indication: Encounter for Medicare annual wellness exam Encounter for Medicare annual wellness exam : advance planning information Indication: Encounter for Medicare annual wellness exam Essential hypertension : Flu (Influenza) *: flu Indication: Essential hypertension Essential hypertension : Flu (Influenza) *: flu shot Indication: Essential hypertension BRONCHITIS, NOT SPECIFIED ACUTE OR CHRONIC (490.) : *URI Treatment Indication: BRONCHITIS, NOT SPECIFIED ACUTE OR CHRONIC (490.) BRONCHITIS, NOT SPECIFIED ACUTE OR CHRONIC (490.) : *URI Symptoms Indication: BRONCHITIS, NOT SPECIFIED ACUTE OR CHRONIC (490.) BRONCHITIS, NOT SPECIFIED ACUTE OR CHRONIC (490.) : *Antibiotic Usage Education - Female Indication: BRONCHITIS, NOT SPECIFIED ACUTE OR CHRONIC (490.) Allergic Rhinitis : Allergic Rhinitis *: allergies Indication: Allergic Rhinitis Sebaceous Cyst : Skin Infection - Signs and Symptoms Indication: Sebaceous Cyst Sebaceous Cyst : I/D Cyst/Abscess Indication: Sebaceous Cyst Cellulitis : Follow up in 1 week-- removal of cyst - 1/2 hr please Indication: Cellulitis Sebaceous Cyst : I/D Cyst/Abscess Indication: Sebaceous Cyst Essential hypertension : High Blood Pressure (Essential Hypertension) *: blood pressure Indication: Essential hypertension Hypercholesteremia : Cholesterol mgmt Indication: Hypercholesteremia Hypercholesteremia : *Cholesterol - Nonprescription Treatment Indication: Hypercholesteremia Hypercholesteremia : *Cholesterol - Medication Side Effects Indication: Hypercholesteremia Abdominal pain, acute, right upper quadrant : Reviewed Diagnostic Tests Indication: Abdominal pain, acute, right upper quadrant Abdominal pain, acute, right upper quadrant : Reviewed Lab Indication: Abdominal pain, acute, right upper quadrant Abdominal pain, acute, right upper quadrant : Follow up in 4days Indication: Abdominal pain, acute, right upper quadrant Abdominal pain, acute, right upper quadrant : Abdominal Pain: pain Indication: Abdominal pain, acute, right upper quadrant ACUTE PHARYNGITIS (462.) : *URI Symptoms Indication: ACUTE PHARYNGITIS (462.) ACUTE PHARYNGITIS (462.) : *Antibiotic Usage Education - Female Indication: ACUTE PHARYNGITIS (462.) Knee pain : Knee Injections Indication: Knee pain Well woman exam : Self breast exam Indication: Well woman exam Well woman exam : *Well Female Maintenance (KF) Indication: Well woman exam Well woman exam : Pap/Pelvic/Bimanual/Rectal/Breast Exam was done. Indication: Well woman exam BRONCHITIS, NOT SPECIFIED ACUTE OR CHRONIC (490.) : *URI Treatment Indication: BRONCHITIS, NOT SPECIFIED ACUTE OR CHRONIC (490.) BRONCHITIS, NOT SPECIFIED ACUTE OR CHRONIC (490.) : *URI Symptoms Indication: BRONCHITIS, NOT SPECIFIED ACUTE OR CHRONIC (490.) BRONCHITIS, NOT SPECIFIED ACUTE OR CHRONIC (490.) : *Antibiotic Usage Education - Female Indication: BRONCHITIS, NOT SPECIFIED ACUTE OR CHRONIC (490.) Allergic rhinitis due to other allergen : ALLERGY PROOFING Indication: Allergic rhinitis due to other allergen Allergic rhinitis due to other allergen : ALLERGY CONTROL Indication: Allergic rhinitis due to other allergen Allergic rhinitis due to other allergen : *URI Symptoms Indication: Allergic rhinitis due to other allergen BRONCHITIS, NOT SPECIFIED ACUTE OR CHRONIC (490.) : *URI Treatment Indication: BRONCHITIS, NOT SPECIFIED ACUTE OR CHRONIC (490.) BRONCHITIS, NOT SPECIFIED ACUTE OR CHRONIC (490.) : *URI Symptoms Indication: BRONCHITIS, NOT SPECIFIED ACUTE OR CHRONIC (490.) BRONCHITIS, NOT SPECIFIED ACUTE OR CHRONIC (490.) : *Antibiotic Usage Education - Female Indication: BRONCHITIS, NOT SPECIFIED ACUTE OR CHRONIC (490.) Pre-operative examination : Reviewed Lab Indication: Pre-operative examination Acquired hypothyroidism : Reviewed Lab Indication: Acquired hypothyroidism Pre-operative examination : Reviewed Diagnostic Tests Indication: Pre-operative examination Allergic rhinitis due to other allergen : ALLERGY CONTROL Indication: Allergic rhinitis due to other allergen Allergic rhinitis due to other allergen : ALLERGY PROOFING Indication: Allergic rhinitis due to other allergen Allergic rhinitis due to other allergen : URI Symptoms Indication: Allergic rhinitis due to other allergen Acute sinusitis : *URI Treatment Indication: Acute sinusitis Acute sinusitis : Antibiotic Usage Education - Female Indication: Acute sinusitis Acute sinusitis : Antibiotic Usage Education - Male Indication: Acute sinusitis Acute sinusitis : URI Symptoms Indication: Acute sinusitis Other and unspecified hyperlipidemia : Diet and Exercise Indication: Other and unspecified hyperlipidemia Cerumen impaction : FOLLOW UP IN 2 DAYS Indication: Cerumen impaction Neoplasm of uncertain behavior of skin : Reviewed Lab Indication: Neoplasm of uncertain behavior of skin Well woman exam : Pap/Pelvic/Bimanual/Rectal/Breast Exam was done. Indication: Well woman exam ACUTE PHARYNGITIS (462.) : *URI Treatment Indication: ACUTE PHARYNGITIS (462.) ACUTE PHARYNGITIS (462.) : Sore throat: diagnosis and treatment Indication: ACUTE PHARYNGITIS (462.) Acute sinusitis : Antibiotic Usage Education - Female Indication: Acute sinusitis Dysuria : Antibiotic Usage Education - Female Indication: Dysuria minor renal insuff- she needs to push more fluids- get followup bmp in 8-12 weeks : FOLLOW UP IN 6 MONTHS Indication: minor renal insuff- she needs to push more fluids- get followup bmp in 8-12 weeks Thoracic or lumbosacral neuritis or radiculitis, unspecified : FOLLOW UP IN 6 MONTHS Indication: Thoracic or lumbosacral neuritis or radiculitis, unspecified Planned Observations TSH ([id number])Indication: Acquired hypothyroidism On: :35 Request URINALYSIS, W/ MICRO ([id number])Indication: Essential hypertension On: :34 Request MICROALBUMIN: CREATININE RATIO (77470) AND (83161)Indication: Essential hypertension On: :34 Request METABOLIC PANEL, COMPREHENSIVE (51788)Indication: Essential hypertension On: :34 Request CBC W/AUTO DIFF WBC (87502)Indication: Essential hypertension On: :34 Request LIPOPROTEIN, BLD, BY NMR (97377)Indication: Other and unspecified hyperlipidemia On: :34 Request CALCIFIDIOL (25122) VIT D 25Indication: Vitamin D deficiency, unspecified On: :34 Request URINE MADAY CULTURE-IDENTIFICATN ([id number])Indication: URINARY TRACT INFECTION, SITE NOT SPECIFIED On: 31-Fcx-864349:53 Request Comments: post treatment culture Stool Guiac Test, Office (Medicare) (G0107)Indication: Hypercholesteremia On: 6-Eip-444917:04 Request URINALYSIS, W/ MICRO (35340)Indication: Hematuria On: 59-Thp-645470:41 Request Vitamin D Hydroxy (31123)Indication: Vitamin D deficiency, unspecified On: 81-Tuh-602872:40 Request CBC W/AUTO DIFF WBC (90154)Indication: Essential hypertension On: 11-Sze-577114:40 Request METABOLIC PANEL, COMPREHENSIVE ([id number])Indication: Essential hypertension On: :39 Request LIPID PANEL (59202)Indication: Hypercholesteremia On: 66-Xrx-740920:39 Request TSH (06603)Indication: Acquired hypothyroidism On: :39 Request Vitamin D Hydroxy (17533)Indication: Vitamin D deficiency, unspecified On: 07-Iry-682190:15 Request METABOLIC PANEL, COMPREHENSIVE (56431)Indication: Essential hypertension On: 45-Ptz-856298:14 Request LIPID PANEL (58504)Indication: Other and unspecified hyperlipidemia On: 95-Vor-264418:14 Request FECAL OCCULT- Tubes sent home ([id number])Indication: Encounter for screening for malignant neoplasm of cervix On: 24-Efs-380022:09 Request Thin prep Pap (19039)Indication: Well woman exam On: 22-Omg-914429:46 Request LIPID PANEL (57680)Indication: Hypercholesteremia On: 95-Dir-881657:23 Request MADAY CULTURE-OTHER (09003)Indication: Cellulitis On: 96-Ibn-45459:22 Request METABOLIC PANEL, COMPREHENSIVE (66560)Indication: Essential hypertension On: :04 Request CBC WITH MANUAL DIFF ([id number])Indication: Essential hypertension On: 76-Avl-879312:04 Request Vitamin D Hydroxy (50232)Indication: Vitamin D deficiency, unspecified On: 90-Cvr-005637:04 Request TSH ([id number])Indication: Acquired hypothyroidism On: 29-Fez-822632:04 Request LIPID PANEL (02620)Indication: Other and unspecified hyperlipidemia On: 14-Jjo-688422:04 Request Vitamin D Hydroxy (00603)Indication: Vitamin D deficiency, unspecified On: :25 Request METABOLIC PANEL, COMPREHENSIVE ([id number])Indication: Essential hypertension On: : Request LIPID PANEL (57679)Indication: Other and unspecified hyperlipidemia On: :25 Request Amylase (53271)Indication: Abdominal pain, acute, right upper quadrant On: 08-Qdx-606457:05 Request Lipase (40407)Indication: Abdominal pain, acute, right upper quadrant On: :05 Request THROAT CULTURE (99832)Indication: ACUTE PHARYNGITIS (462.) On: 27-Prh-514845:37 Request CALCIFEDIOL (50862)Indication: Vitamin D deficiency, unspecified On: 07-Oat-08278:35 Request URINALYSIS, W/ MICRO ([id number])Indication: Essential hypertension On: 85-Fyx-260437:50 Request LIPID PANEL (02338)Indication: Other and unspecified hyperlipidemia On: :49 Request CBC WITH MANUAL DIFF ([id number])Indication: Essential hypertension On: :49 Request METABOLIC PANEL, COMPREHENSIVE (68999)Indication: Essential hypertension On: :49 Request TSH ([id number])Indication: Acquired hypothyroidism On: :49 Request SKIN TEST INTRADERMAL TB ([id number])Indication: Erythema nodosum On: :49 Request Comments: Site- Left forearm MADAY CULTURE-OTHER ([id number])Indication: Erythema nodosum On: :37 Request ANTISTREPTOLYSIN O-TITER ([id number])Indication: Erythema nodosum On: 72-Hsf-132535:33 Request TSH ([id number])Indication: Fatigue On: :22 Request URINALYSIS, W/ MICRO ([id number])Indication: Erythema nodosum On: 59-Pvr-340401:20 Request C-REACTIVE PROTEIN ([id number])Indication: Erythema nodosum On: :20 Request SED RATE ERYTHROCYTE ([id number])Indication: Erythema nodosum On: 27-Wpt-740462:20 Request METABOLIC PANEL, COMPREHENSIVE ([id number])Indication: Erythema nodosum On: 57-Khl-472620:20 Request CBC WITH MANUAL DIFF ([id number])Indication: Erythema nodosum On: 84-Ezu-230198:20 Request XOCHILT (ANTINUCLEAR ANTIBODY) ([id number])Indication: Erythema nodosum On: :19 Request RHEUMATOID FACTOR-QUANT ([id number])Indication: Erythema nodosum On: 25-Nwh-037325:19 Request Thin prep Pap (95001)Indication: Well woman exam On: :17 Request URINALYSIS, W/ MICRO (83353)Indication: Essential hypertension On: :07 Request CBC WITH MANUAL DIFF ([id number])Indication: Essential hypertension On: 98-Atn-94513:07 Request LIPID PANEL (18393)Indication: Other and unspecified hyperlipidemia On: 96-Uwf-44624:06 Request TSH ([id number])Indication: Acquired hypothyroidism On: :06 Request METABOLIC PANEL, COMPREHENSIVE (27639)Indication: Essential hypertension On: :06 Request METABOLIC PANEL, COMPREHENSIVE (46786)Indication: Essential hypertension On: 81-Dqo-532907:53 Request TSH ([id number])Indication: Acquired hypothyroidism On: 21-Skw-115259:53 Request LIPID PANEL (60705)Indication: Other and unspecified hyperlipidemia On: :53 Request LIPID PANEL (22777)Indication: Other and unspecified hyperlipidemia On: 79-Efd-645131:31 Request METABOLIC PANEL, COMPREHENSIVE ([id number])Indication: Essential hypertension On: :30 Request CBC WITH MANUAL DIFF ([id number])Indication: Essential hypertension On: 91-Qoz-239547:30 Request TSH ([id number])Indication: Acquired hypothyroidism On: 76-Gcy-143777:30 Request MADAY CULTURE-OTHER ([id number])Indication: Neoplasm of uncertain behavior of skin On: 82-Bkz-737227:26 Request Thin prep Pap ([id number])Indication: Well woman exam On: 27-Fnu-582593:00 Request Magnesium ([id number])Indication: Palpitations On: 83-Rhw-891936:12 Request T4, FREE (THYROXINE) ([id number])Indication: Palpitations On: 23-Jpc-180073:12 Request T3, FREE (TRIDOTHYRONINE) ([id number])Indication: Palpitations On: 87-Bhs-303557:11 Request CBC WITH MANUAL DIFF ([id number])Indication: Essential hypertension On: 49-Frn-571855:11 Request METABOLIC PANEL, COMPREHENSIVE ([id number])Indication: Essential hypertension On: 49-Tdz-554192:10 Request TSH ([id number])Indication: Acquired hypothyroidism On: 14-Fbr-315738:10 Request LIPID PANEL ([id number])Indication: Other and unspecified hyperlipidemia On: 37-Gfb-766966:10 Request METABOLIC PANEL, COMPREHENSIVE ([id number])Indication: Essential hypertension On: :06 Request URINALYSIS W/O MICRO ([id number])Indication: Essential hypertension On: :05 Request TSH ([id number])Indication: Acquired hypothyroidism On: : Request HEPATIC FUNCTION PANEL ([id number])Indication: Other and unspecified hyperlipidemia On: : Request LIPID PANEL ([id number])Indication: Other and unspecified hyperlipidemia On: : Request FERRITIN ([id number])Indication: Other and unspecified hyperlipidemia On: 91-Nsq-182614:53 Request HEPATIC FUNCTION PANEL ([id number])Indication: Other and unspecified hyperlipidemia On: :53 Request LIPID PANEL ([id number])Indication: Other and unspecified hyperlipidemia On: :53 Request MADAY CULTURE-OTHER ([id number])Indication: ACUTE PHARYNGITIS (462.) On: 99-Mcd-136035:20 Request CBC WITH MANUAL DIFF ([id number])Indication: Essential hypertension On: :26 Request LIPID PANEL ([id number])Indication: Other and unspecified hyperlipidemia On: :22 Request METABOLIC PANEL, COMPREHENSIVE ([id number])Indication: Hyponatremia On: :22 Request TSH ([id number])Indication: Acquired hypothyroidism On: :22 Request METABOLIC PANEL, COMPREHENSIVE ([id number])Indication: Hyponatremia On: 42-Rly-180886:00 Request CBC WITH MANUAL DIFF ([id number])Indication: Anemia, unspecified On: 32-Bfg-360741:00 Request SED RATE ERYTHROCYTE ([id number])Indication: Epigastric pain On: 21-Gxq-529222:03 Request C-REACTIVE PROTEIN ([id number])Indication: Epigastric pain On: 98-Ceo-249126:03 Request METABOLIC PANEL, COMPREHENSIVE ([id number])Indication: Epigastric pain On: 34-Qiq-984989:02 Request CBC WITH MANUAL DIFF ([id number])Indication: Epigastric pain On: 42-Jdl-339112:02 Request METABOLIC PANEL, COMPREHENSIVE ([id number])Indication: Essential hypertension On: 42-Ppg-852702:49 Request TSH ([id number])Indication: Acquired hypothyroidism On: 76-Axp-829439:42 Request LIPID PANEL ([id number])Indication: Other and unspecified hyperlipidemia On: 00-Itg-187060:42 Request URINE MADAY CULTURE (FARIBA COL COUNT) ([id number])Indication: Dysuria On: 0-Fhk-312490:04 Request LIPID PANEL ([id number])Indication: Other and unspecified hyperlipidemia On: 5-Wyl-277962:05 Request MICROALBUMIN URINE QUANT ([id number])Indication: Essential hypertension On: 4-Neo-186846:05 Request TSH ([id number])Indication: Acquired hypothyroidism On: :04 Request URINALYSIS W/O MICRO ([id number])Indication: Essential hypertension On: :04 Request METABOLIC PANEL, COMPREHENSIVE ([id number])Indication: Essential hypertension On: : Request CBC WITH MANUAL DIFF ([id number])Indication: Essential hypertension On: : Request Planned Encounters Medical; 6 Month FU - On: 12-Jan-2019 9:45 [facility] Windy Mayorga DO, DO, Kathleen Planned Procedures MAGNETIC RESONANCE ANGIOGRAPHY OF On: 10-Sep-2018 Intent BRAIN WITH CONTRAST ([id number])By: Windy Mayorga DO, DO, Kathleen MRI OF BRAIN WITHOUT CONTRAST On: 10-Sep-2018 Intent ([id number])By: Windy Mayorga DO, DO, Kathleen OSTEOPATHIC TREATMENT OF HEAD On: 09-Sep-2018 Intent USING MUSCLE ENERGY-ISOMETRIC Comments: cervical spine C1-C4 FORCES ([id number])By: Windy Mayorga DO, DO, Kathleen X-RAY OF CERVICAL SPINE, TWO VIEWS On: 09-Sep-2018 Intent ([id number])By: Windy Mayorga DO, DO, Kathleen MRA OF BRAIN ([id number])By: Concetta COLEY, On: 09-Sep-2018 Intent Windy Jeffries DO MRI BRAIN ([id number])By: Concetta COLEY, On: 09-Sep-2018 Intent Windy Jeffries DO ELECTROCARDIOGRAM, COMPLETE (ECG) On: 14-Jul-2018 Intent ([id number])By: Windy Mayorga DO Comments: nsr no acute chg - poor R wave progression and nonspecific st flattening Windy Mayorga DO Flu Vaccine (Quadrivalent) On: 11-Jun-2018 Intent 13344Fg: Visit, Nurse Comments: Lot #:[id number] date: 4-31-71Egpmmt given:0.5mlRoute: IMSite given:L DltdGiven by: Melissa and DANNIELLE signed Fluarix Ultrasound - Breast - LeftBy: On: 04-Sep-2017 Intent Concetta COLEY, Windy Concetta DO, Windy LGOR-BL-HQQA BEHAVIORAL COUNSELING On: 29-Jun-2017 Intent FOR OBESITY, 15 MINUTES (G0447)By: Windy Mayorga DO, DO, Windy DEXA SCAN AXIAL SKELETON On: 29-Jun-2017 Intent ([id number])By: Windy Mayorga DO, DO, Kathleen SCREENING DIGITAL TOMOSYNTHESIS OF On: 29-Jun-2017 Intent BREAST ([id number])By: Windy Mayorga DO ConcettaWindy phipps DO ELECTROCARDIOGRAM, COMPLETE (ECG) On: 29-Jun-2017 Intent ([id number])By: Windy Mayorga DO Comments: nsr no acute chg Windy Mayorga DO Flu Vaccine (Quadrivalent) On: 17-Jun-2017 Intent 48354Ox: Visit, Nurse Comments: Lot #[id number]/15/18ite-L dltd, IMDose prefilled syringegiven by:DAGMAR Mathis and DANNIELLE signed MAMMOGRAM, SCREENING, BOTH BREAST On: 16-May-2016 Intent ([id number])By: Windy Mayorga DO Concetta DO, Windy Flu Vaccine (Quadrivalent) On: 07-May-2016 Intent 05163Rb: Windy Mayorga DO Comments: Lot:[id number]:02/27/17Dose:0.5mLRoute:IMSite:L DltdGiven By:GENTRY signed ConcettaWindy phipps DO ELECTROCARDIOGRAM, COMPLETE (ECG) On: 07-May-2016 Intent ([id number])By: Windy Mayorga DO Comments: nsr no acute chg Concetta DO, Windy Aerosol Treatment ([id number])By: Terri On: 26-Mar-2016 Intent Lucretia ARNOLD Radiology - Chest- PA and LatBy: On: 03-Dec-2015 Intent Juve DO Raya A Aerosol Treatment ([id number])By: Terri On: 12-Nov-2015 Intent COST CLERK, Lucretia Flu Vaccine (Quadrivalent) On: 07-Jun-2015 Intent 08001Fk: Visit, Nurse Comments: Lot #[id number]-L dltd, IMDose prefilled syringegiven by:DAGMAR Mathis and DANNIELLE signed Pap Smear, Medicare ([id number])By: On: 11-Apr-2015 Intent Raya Viera DO MAMMOGRAM, SCREENING, BOTH BREAST On: 11-Apr-2015 Intent ([id number])By: Raya Viera DO Aerosol Treatment ([id number])By: Terri On: 09-Apr-2015 Intent Lucretia ARNOLD Radiology - Sacrum/CoccyxBy: Juve On: 04-Oct-2014 Intent Raya COLEY ADMINISTRATION OF INFLUENZA VIRUS On: 09-Jun-2014 Intent VACCINE (G0008)By: Visit, Nurse FLU VAC, SPLIT, >3 YEARS, On: 09-Jun-2014 Intent INTRAMUSC ([id number])By: Juve COLEY, Comments: Lot:[id number]:02/27/15Dose:0.5mLRoute:IMSite:L DltdGiven By:GENTRY signed Raya A MAMMOGRAM, SCREENING, BOTH BREAST On: 29-Mar-2014 Intent ([id number])By: Raya Viera DO Comments: mar EKG (05063)By: Raya Viera DO On: 29-Mar-2014 Intent Comments: ekg showed normal sinus rhythym, normal axis, no acute st/t wave changes no change in the previous t wave inversions Eprescribed prescriptions On: 13-Jan-2014 Intent (G8553)By: Donna Locke CNP Eprescribed prescriptions On: 26-Oct-2013 Intent (G8553)By: Windy Mayorga DO, DO, Kathleen Radiology - Knee - RightBy: Concetta On: 26-Oct-2013 Windy Jaimes DO, DO, Kathleen Eprescribed prescriptions On: 17-Aug-2013 Intent (G8553)By: Renetta Hough LPN FLU VAC, SPLIT, >3 YEARS, On: 19-Jul-2013 Intent INTRAMUSC ([id number])By: Juve COLEY, Comments: lot [id number] 2014site/route L olga, IMamt 0.5mlVIS and ABN signed when applicableMOHINDER Hogan ADMINISTRATION OF INFLUENZA VIRUS On: 19-Jul-2013 Intent VACCINE (G0008)By: Raya Viera DO Eprescribed prescriptions On: 19-Jul-2013 Intent (G8553)By: Jennifer Coronado Pulse Oximetry (26451)By: Randall On: 22-Apr-2013 Intent THALIA EKG ([id number])By: Jennifer Coronado On: 28-Jan-2013 Intent Comments: ekg showed normal sinus rhythym, normal axis, no acute st/t wave changes MAMMOGRAM, SCREENING, BOTH BREASTS On: 28-Jan-2013 Intent ([id number])By: Raya Viera DO Comments: end march Eprescribed prescriptions On: 09-Sep-2012 Intent (G8553)By: Windy Mayorga DO, DO, Kathleen IMMUNIZ ADMNIN, 1 VAC, SNGL/COMBO On: 26-Jul-2012 Intent ([id number])By: Raya Viera DO Eprescribed prescriptions On: 26-Jul-2012 Intent (G8553)By: Jennifer Coronado PNEUM VAC ADLT/IMUMNOSPR, On: 26-Jul-2012 Intent SBC/INTRM ([id number])By: Juve COLEY, Comments: Lot:[id number]:Dose:0.5mLRoute:IMSite:l armGiven By:GENTRY signed Raya Arechiga Breast Screening - BilateralBy: On: 29-Mar-2012 Intent Raya Viera DO Nuclear Medicine - HIDA w/CPKBy: On: 19-Mar-2012 Intent CiesDonna arechiga CNP Ultrasound - GallbladderBy: Ciesa On: 15-Mar-2012 Intent Donna GROVE Eprescribed prescriptions On: 19-Dec-2011 Intent (G8553)By: Windy Mayorga DO, DO, Kathleen EKG ([id number])By: Raya Viera DO On: 27-Oct-2011 Intent Comments: ekg showed normal sinus rhythym, normal axis, no acute st/t wave changes nonspecific old t wave inversion CT - ChestBy: Raya Viera DO On: 03-Jun-2011 Intent Comments: pe protocol-not stat but sometime this week Spirometry ([id number])By: Juve COLEY, On: 26-May-2011 Intent Raya Arechiga Comments: good effort and curve normal Radiology - Chest- PA and LatBy: On: 26-May-2011 Intent Raya Viera DO DRAIN/INJECT, JOINT/BURSA On: 02-May-2011 Intent ([id number])By: Windy Mayorga DO Comments: 2 cc marcaine and 1 cc kenolog Windy Mayorga DO TDAP VACCINE >7 IM (22231)By: Juve On: 11-Apr-2011 Intent Raya COLEY Comments: Lot #: [id number] date: 05/13Amount given: 0.5 mlRoute: IMSite given: left deltoidGiven by: Hawk Pardo RN EKG ([id number])By: Jennifer Coronado On: 17-Feb-2011 Intent Comments: ekg showed normal sinus rhythym, normal axis, no acute st/t wave changes nonspecific t wave inversion anteriorly- not changed- Eprescribed prescriptions On: 17-Feb-2011 Intent (G8553)By: Raya Viera DO DXA, BONE DENSITY, AXIAL SKELETON On: 17-Feb-2011 Intent ([id number])By: Raya Viera DO MAMMOGRAM, SCREENING, BOTH BREASTS On: 17-Feb-2011 Intent ([id number])By: Raya iVera DO Aerosol Treatment ([id number])By: Juve On: 14-Aug-2010 Intent Raya COLEY Spirometry (06541)By: Cliff On: 14-Aug-2010 Intent Comments: good effort and curve -decrease small airways Radiology - Chest- PA and LatBy: On: 14-Aug-2010 Intent Raya Viera DO Pulse Oximetry (54547)By: Cliff On: 14-Aug-2010 Intent Comments: 96% Pulse Oximetry (56184)By: Chucky On: 31-Jul-2010 Intent Donna GROVE Aerosol Treatment ([id number])By: Chucky On: 31-Jul-2010 Intent Donna GROVE Pulse Oximetry ([id number])By: Chucky On: 15-Jul-2010 Intent Donna GROVE Aerosol Treatment ([id number])By: Chucky On: 15-Jul-2010 Intent Donna GROVE ELECTROCARDIOGRAM, COMPLETE (ECG) On: 24-Dec-2009 Intent ([id number])By: Chucky Donna GROVE MAMMOGRAM, SCREENING, BOTH BREASTS On: 25-Jun-2009 Intent ([id number])By: Raya Viera DO Wax CurettesBy: Chucky GROVEDonna On: 07-Jun-2009 Intent Ear Irrigation ([id number])By: Chucky On: 07-Jun-2009 Intent Donna GROVE FLU VAC, SPLIT, >3 YEARS, On: 05-Jun-2009 Intent INTRAMUSC ([id number])By: Tuyet Camejo IMMUNIZ ADMNIN, 1 VAC, SNGL/COMBO On: 05-Jun-2009 Intent ([id number])By: Tuyet Camejo Comments: Lot #[id number]-left deltoidgiven by:[facility] DRAIN SKIN ABSCESS, SIMPLE/SINGLE On: 13-Nov-2008 Intent (16746)By: Chucky GROVEDonna Holter Moniter (49561)By: On: 12-Sep-2008 Intent THALIA Pereira Comments: placement Pt given diary and instructions she voices understanding iveth arnold DXA, BONE DENSITY, AXIAL SKELETON On: 16-Aug-2008 Intent ([id number])By: Raya Viera DO MAMMOGRAM, SCREENING, BOTH BREASTS On: 16-Aug-2008 Intent ([id number])By: Raya Viera DO Holter Monitor 24 hrsBy: Juve COLEY, On: 16-Aug-2008 Intent Raya A EKG (21439)By: Jennifer Coronado On: 16-Aug-2008 Intent Comments: ekg showed normal sinus rhythym, normal axis, no acute st/t wave changes t wave inversion anteriorly unchanged IMMUNIZ ADMNIN, 1 VAC, SNGL/COMBO On: 16-Jun-2008 Intent (63488)By: Renetta Hough LPN FLU VAC, SPLIT, >3 YEARS, On: 16-Jun-2008 Intent INTRAMUSC (76406)By: [place], Comments: 0.5cc given im lt olga David Jackson LPN SPECIMEN HNDLNG/TRNSPRT, OFFC > On: 18-Jan-2008 Intent LAB ([id number])By: Jennifer Coronado CT - AbdomenBy: Raya Veira DO On: 19-Jul-2007 Intent Comments: stat tonight call wet read EKG (83349)By: THALIA Pereira On: 21-Jun-2007 Intent Comments: ekg showed normal sinus rhythym, normal axis, no acute st/t wave changesasymetric twave inversion- no change FLU VAC, SPLIT, >3 YEARS, On: 21-Jun-2007 Intent INTRAMUSC (22984)By: Randall, Comments: Lot #:Expiration date:Amount given:Route: IMSite given:left deltoidGiven by: iveth Lot # [id number] 02-28-08 THALIA IMMUNIZ ADMNIN, 1 VAC, SNGL/COMBO On: 21-Jun-2007 Intent ([id number])By: THALIA Pereira FLU VAC, SPLIT, >3 YEARS, On: 06-Jul-2006 Intent INTRAMUSC ([id number])By: THALIA Pereira IMMUNIZ ADMNIN, 1 VAC, SNGL/COMBO On: 06-Jul-2006 Intent (07911)By: THALIA Pereira Comments: Lot #:Expiration date:Amount given:Route: Site given:Given by: Instructions Name Dates Details Nonsmoker : How to access health information online Indication: Nonsmoker Nonsmoker : How to access health information online - Detail Indication: Nonsmoker Nonsmoker : Patient Instructions Indication: Nonsmoker BMI 30.0-30.9,adult : How to access health information online Indication: BMI 30.0-30.9,adult BMI 30.0-30.9,adult : How to access health information online - Detail Indication: BMI 30.0-30.9,adult BMI 30.0-30.9,adult : Patient Instructions Indication: BMI 30.0-30.9,adult Nonsmoker : How to access health information online Indication: Nonsmoker Nonsmoker : How to access health information online - Detail Indication: Nonsmoker Nonsmoker : Patient Instructions Indication: Nonsmoker Nonsmoker : How to access health information online Indication: Nonsmoker Nonsmoker : How to access health information online - Detail Indication: Nonsmoker Nonsmoker : Patient Instructions Indication: Nonsmoker Nonsmoker : How to access health information online Indication: Nonsmoker Nonsmoker : How to access health information online - Detail Indication: Nonsmoker Nonsmoker : Patient Instructions Indication: Nonsmoker Acquired hypothyroidism : Patient Instructions Indication: Acquired hypothyroidism Flu-like symptoms : How to access health information online Indication: Flu-like symptoms Flu-like symptoms : How to access health information online - Detail Indication: Flu-like symptoms Flu-like symptoms : Patient Instructions Indication: Flu-like symptoms Essential hypertension : obesity counseling Indication: Essential hypertension Nonsmoker : How to access health information online Indication: Nonsmoker Nonsmoker : How to access health information online - Detail Indication: Nonsmoker Nonsmoker : How to access health information online - Detail Indication: Nonsmoker Nonsmoker : Patient Instructions Indication: Nonsmoker UTI symptoms : How to access health information online Indication: UTI symptoms UTI symptoms : How to access health information online - Detail Indication: UTI symptoms UTI symptoms : Patient Instructions Indication: UTI symptoms Hypercholesteremia : DISCONTINUED - METABOLIC PANEL, COMPREHENSIVE (00817) Indication: Hypercholesteremia Hypercholesteremia : DISCONTINUED - LIPID PANEL (73613) Indication: Hypercholesteremia BMI 30.0-30.9,adult : How to access health information online Indication: BMI 30.0-30.9,adult BMI 30.0-30.9,adult : How to access health information online - Detail Indication: BMI 30.0-30.9,adult BMI 30.0-30.9,adult : Patient Instructions Indication: BMI 30.0-30.9,adult URINARY TRACT INFECTION, SITE NOT SPECIFIED : How to access health information online Indication: URINARY TRACT INFECTION, SITE NOT SPECIFIED URINARY TRACT INFECTION, SITE NOT SPECIFIED : How to access health information online - Detail Indication: URINARY TRACT INFECTION, SITE NOT SPECIFIED URINARY TRACT INFECTION, SITE NOT SPECIFIED : Patient Instructions Indication: URINARY TRACT INFECTION, SITE NOT SPECIFIED Essential hypertension : How to access health information online Indication: Essential hypertension Essential hypertension : How to access health information online - Detail Indication: Essential hypertension Essential hypertension : Patient Instructions Indication: Essential hypertension Cough : How to access health information online Indication: Cough Cough : How to access health information online - Detail Indication: Cough Cough : Patient Instructions Indication: Cough Eye pain : How to access health information online Indication: Eye pain Eye pain : How to access health information online - Detail Indication: Eye pain Eye pain : Patient Instructions Indication: Eye pain Allergic rhinitis due to other allergen : How to access health information online Indication: Allergic rhinitis due to other allergen Allergic rhinitis due to other allergen : How to access health information online - Detail Indication: Allergic rhinitis due to other allergen Allergic rhinitis due to other allergen : Patient Instructions Indication: Allergic rhinitis due to other allergen Wheezing : How to access health information online Indication: Wheezing Wheezing : How to access health information online - Detail Indication: Wheezing Wheezing : Patient Instructions Indication: Wheezing Hypercholesteremia : How to access health information online Indication: Hypercholesteremia Hypercholesteremia : How to access health information online - Detail Indication: Hypercholesteremia Hypercholesteremia : Patient Instructions Indication: Hypercholesteremia Encounter for Medicare annual wellness exam : How to access health information online Indication: Encounter for Medicare annual wellness exam Encounter for Medicare annual wellness exam : How to access health information online - Detail Indication: Encounter for Medicare annual wellness exam Encounter for Medicare annual wellness exam : Patient Instructions Indication: Encounter for Medicare annual wellness exam Cough : How to access health information online Indication: Cough Cough : How to access health information online - Detail Indication: Cough Cough : Patient Instructions Indication: Cough Essential hypertension : Patient Instructions Indication: Essential hypertension Acquired hypothyroidism : Patient Instructions Indication: Acquired hypothyroidism Hypercholesteremia : How to access health information online Indication: Hypercholesteremia Hypercholesteremia : How to access health information online - Detail Indication: Hypercholesteremia Hypercholesteremia : Patient Instructions Indication: Hypercholesteremia Dysuria : Patient Instructions Indication: Dysuria Osteoarthrosis, not specified whether generalized/localized, lower leg : Patient Instructions Indication: Osteoarthrosis, not specified whether generalized/localized, lower leg Knee pain : Patient Instructions Indication: Knee pain Dysuria : Patient Instructions Indication: Dysuria Essential hypertension : Patient Instructions Indication: Essential hypertension BRONCHITIS, NOT SPECIFIED ACUTE OR CHRONIC (490.) : Patient Instructions Indication: BRONCHITIS, NOT SPECIFIED ACUTE OR CHRONIC (490.) Essential hypertension : Patient Instructions Indication: Essential hypertension Visit for suture removal : Patient Instructions Indication: Visit for suture removal Cellulitis : Patient Instructions Indication: Cellulitis Essential hypertension : Patient Instructions Indication: Essential hypertension Encounters Phone Encounter On: 10-Sep-2018 11:24 Encounter Diagnosis: Headache, worsening End: 10-Sep-2018 11:35 [facility] Office Visit On: 09-Sep-2018 10:38 Encounter Reason: Headache - No changes in management were made at the last visit. Symptoms include new onset headache and different headache features. The patient describes the pain as aching. Onset was sudden 3 week(s) End: 09-Sep-2018 11:57 ago. The symptoms occur constantly. The patient describes this as severe. Note for Headache: i have always had elmore -- chronic sufferer-- downing a coke for caffeine has helped - but htis time wont go away and in back of neck-- base of skull- no vision changes, no n/v - recent eye visit ok. this elmore is more constant - otc advil intermittently doesnt really help- doesnt wrap around to forehead but can feel like a tight bathing cap is on, [ADDITIONAL REASON] Neck Pain - This condition occurred without any known injury. The patient describes symptoms as moderate in severity. Note for Neck pain: no radiation of neck pain - no n/t in arms - no injury Encounter Diagnosis: BMI 30.0-30.9,adult, Nonsmoker, Headache, worsening, Cervical pain (neck), Muscle spasm [facility] Office Visit On: 17-Aug-2018 13:37 Encounter Reason: Knee Pain - This condition occurred without any known injury. Symptoms include knee pain, swelling and stiffness. Symptoms are located in the right knee. The patient describes the pain as sharp. Onset w End: 17-Aug-2018 14:49 as sudden 1 day(s) ago. Note for Knee pain: Striking rt knee pain, had torn meniscus in that leg some years ago. Got down on floor then up with striking knee pain .Saw Ranulfo in January with improvement with leg exercise and tumeric, now with sharp pain, [ADDITIONAL REASON] Cough - Note for Cough: Cough improved with biaxin Encounter Diagnosis: Nonsmoker, BMI 30.0-30.9,adult, Knee pain (719.46) [facility] Office Visit On: 10-Aug-2018 13:42 Encounter Reason: Sinusitis - Symptoms include nasal congestion, cheek pressure, forehead pressure and cough. Onset was 6 day(s) ago. Note for Sinusitis: pt has low energy5-6 daysEncounter Diagnosis: Nonsmoker, BMI 30.0-30.9,adult, Sinusitis, acute End: 10-Aug-2018 14:19 , Cough [facility] Office Visit On: 14-Jul-2018 9:03 Encounter Reason: Follow up for chronic medical issues - The patient feels well with minor complaints, has good energy level and is sleeping poorly. Patient has been compliant with instructions. Current medication use: n End: 14-Jul-2018 15:55 o side effects and compliant with dosing regimen. Patient sleeps 7 hours per night. Nutrition: balanced diet and supplemental vitamins. The medical issues the patient is following up for include All gavin ntified problems below, high blood pressure and high cholesterol. weight :.Encounter Diagnosis: BMI 30.0-30.9,adult, Nonsmoker, Acquired hypothyroidism, Essential hypertension, Other and unspecified hyperlipidemia (272.4), Vitamin D deficiency, unspecified, Osteoarthrosis, not specified whether generalized/localized, lower leg, History of UTI [facility] Office Visit On: 11-Jun-2018 13:44 Encounter Diagnosis: Need for prophylactic vaccination and inoculation against influenza End: 11-Jun-2018 14:22 [facility] Office Visit On: 30-Apr-2018 9:32 Encounter Reason: Conjunctivitis - Symptoms include clear ocular discharge, purulent ocular discharge, lid crusting and ocular redness. Symptoms are located in both eyes. Onset was 1 day(s) ago.Encounter Diagnosis: Nonsmoker, BMI 29.0-29.9,adult, End: 30-Apr-2018 10:12 Conjunctivitis [facility] Office Visit On: 28-Dec-2017 13:20 Encounter Reason: Follow up tests - Date: (12/18/17)., [ADDITIONAL REASON] Follow up for chronic medical issues - The patient feels well with minor complai End: 28-Dec-2017 14:10 nts, has good energy level and is sleeping well. Patient has been compliant with instructions. Current medication use: no side effects and compliant with dosing regimen. Patient sleeps 8 hours per night . Nutrition: balanced diet and supplemental vitamins. The medical issues the patient is following up for include All identified problems below, high blood pressure and high cholesterol. weight :. Encounter Diagnosis: BMI 31.0-31.9,adult, Vitamin D deficiency, unspecified, Essential hypertension, Hypercholesteremia, Acquired hypothyroidism, Nonsmoker, Osteopenia of the elderly, Hammer toe of second toe of left foot, Chronic pain of both knees [facility] Office Visit On: 28-Sep-2017 11:05 Encounter Reason: Nurse procedure visit - The symptoms have been associated with other (Urinalysis).Encounter Diagnosis: UTI (urinary tract infection) End: 28-Sep-2017 12:36 [facility] Office Visit On: 17-Sep-2017 8:19 Encounter Reason: UTIEncounter Diagnosis: Dysuria, UTI (urinary tract infection), bacterial End: 17-Sep-2017 15:23 [facility] Visit On: 14-Sep-2017 16:09 Encounter Reason: Flu Like Symptoms - Symptoms include fever, chills, nasal congestion, runny nose, postnasal drainage, scratchy throat, hoarseness, productive cough (yellowish) and headache. Onset was sudden day(s) ago End: 14-Sep-2017 17:01 (1). Onset followed exposure at home to someone with upper respiratory symptoms. The patient describes this as moderate in severity. Note for Flu like symptoms: felt bad after skiing yesterdayEncounter Diagnosis: BMI 31.0-31.9,adult, Flu-like symptoms, Nonsmoker [facility] Phone Encounter On: 04-Sep-2017 11:24 Encounter Diagnosis: Abnormal mammogram End: 04-Sep-2017 11:25 [facility] Visit On: 29-Jun-2017 13:20 Encounter Reason: Follow up for chronic medical issues - The patient feels well with minor complaints, has good energy level and is sleeping well. Patient has been compliant with instructions. Current medication use: no End: 29-Jun-2017 15:31 side effects and compliant with dosing regimen. Patient sleeps 9 hours per night. Nutrition: balanced diet and supplemental vitamins. The medical issues the patient is following up for include All ident ified problems below, high blood pressure and hypothyroid. weight :., [ADDITIONAL REASON] Annual Medicare Exam - The patient had reviewed and updated the family history, medication/s, past medical history and social history. Yes the patient did have (perfect score) a mini mental status exam done today. The activities of daily living the patient needs help with are none. The patient has put area rugs through house, but the patient has not had fecal incontinence, had urinary incontinence, missed or ran out of medications to soon, driven in past 6 months, fallen in the p ast 6 months, gotten lost, has a medalert necklace or bracelet or put handrails in bathroom. The patient has completed the following preventative measures: PAP smear, mammography, PSA testing and colono scopy. The patient does have durable power of attorney at law and living will. The patient has noticed nothing from the geriatic depression scale. Other providers contributing to the patient's care are meter technician and skip tender. Encounter Diagnosis: BMI 30.0-30.9,adult, Nonsmoker, Acquired hypothyroidism, Essential hypertension, Hypercholesteremia, Vitamin D deficiency, unspecified, Anxiety (300.00), Encounter for annual general medical examination with abnormal findings in adult, Encounter for screening mammogram for breast cancer (Renamed from Encounter for screening mammogram for malignant neoplasm of breast), Postmenopausal (Renamed from Postmenopausal status), Encounter for screening for malignant neoplasm of colon (Renamed from Special screening for malignant neoplasms, colon), Acute cystitis without hematuria [facility] Office Visit On: 22-Jun-2017 15:50 Encounter Reason: UTI - The urinary symptoms are described as painful urination, frequency, urgency and burning. The symptoms have been occurring for 2 hours and have been ??increasing. The urine is described as clear. T End: 22-Jun-2017 16:26 he patient denies the use of oral contraceptives, antibiotics, hormone replacement therapy or pyridium/uristat.Encounter Diagnosis: UTI symptoms, BMI 30.0- 30.9,adult, Nonsmoker, Acute cystitis without hematuria [facility] Visit On: 17-Jun-2017 15:07 Encounter Reason: Injections - The medication the patient is here to receive is other.Encounter Diagnosis: Need for prophylactic vaccination and inoculation against influenza End: 17-Jun-2017 15:43 [facility] Annotation/Addendum On: 12-May-2017 16:32 Encounter Diagnosis: Essential hypertension, Hypercholesteremia End: 12-May-2017 16:34 [facility] Visit On: 23-Feb-2017 14:22 Encounter Reason: Follow up for chronic medical issues - The patient feels well with minor complaints, has decreased energy level and is sleeping well. Patient has been compliant with instructions. Current medication use End: 23-Feb-2017 15:00 : no side effects and compliant with dosing regimen. Patient sleeps 8 hours per night. Nutrition: balanced diet and supplemental vitamins. The medical issues the patient is following up for include All identified problems below, depression (anxiety), high cholesterol and hypothyroid. weight :.Encounter Diagnosis: Nonsmoker, BMI 30.0-30.9,adult, Vitamin D deficiency, unspecified, Other and unspecified hyperlipidemia (272.4), Essential hypertension, Hair loss, URINARY TRACT INFECTION, SITE NOT SPECIFIED (599.0), Change in nail appearance [facility] Office Visit On: 08-Jan-2017 7:21 Encounter Reason: Follow up acute care visit - The patient feeling better since last seen and improving. Patient has been compliant with instructions. Current medication use: no side effects and compliant with dosing reg End: 08-Jan-2017 9:33 imen. Patient sleeps 7 hours per night. Impact of disease: emotional impact-mild. Nutrition: balanced diet and supplemental vitamins. The medical issues the patient is following up for include UTI.Encounter Diagnosis: URINARY TRACT INFECTION, SITE NOT SPECIFIED (599.0), Nonsmoker, Dysuria, BMI 31.0- 31.9,adult, Urgency of urination [facility] Phone Encounter On: 22-Aug-2016 13:50 Encounter Diagnosis: Sciatica without lumbago, left End: 22-Aug-2016 13:53 [facility] Visit On: 09-Jun-2016 10:20 Encounter Reason: Sciatica - This condition is not related to a specific injury. Note for Sciatica: lefy side x 5 days. she is very activen not sure what brougth on had in the past. pain in the left buttocks and into End: 09-Jun-2016 11:12 left back of thigh no leg weakness. no b/b incontinenceEncounter Diagnosis: Sciatica without lumbago, left [facility] Visit On: 06-Jun-2016 7:22 Encounter Diagnosis: Encounter for screening for malignant neoplasm of colon (Renamed from Special screening for malignant neoplasms, colon) End: 06-Jun-2016 7:25 [facility] Visit On: 29-May-2016 9:53 Encounter Diagnosis: Encounter for screening for malignant neoplasm of colon (Renamed from Special screening for malignant neoplasms, colon), Fecal occult blood test positive End: 29-May-2016 12:25 [facility] Visit On: 16-May-2016 9:29 Encounter Reason: Annual Medicare Exam - The patient had reviewed and updated the family history, medication/s, past medical history and social history. Yes the patient did have a mini mental status exam done today. The End: 16-May-2016 10:07 activities of daily living the patient needs help with are none. The patient has driven in past 6 months, but the patient has not had fecal incontinence, had urinary incontinence, missed or ran out of m edications to soon, fallen in the past 6 months, gotten lost, has a medalert necklace or bracelet, put area rugs through house or put handrails in bathroom. The patient has completed the following preve ntative measures: PAP smear (2), mammography (2) and colonoscopy (8). The patient does have durable power of attorney at law and living will. The patient has noticed nothing from the geriatic depression scale. Other providers contributing to the patient's care are other:.Encounter Diagnosis: Annual Medicare Phyiscal WITHOUT abnormal findings (Renamed from Encounter for general adult medical examination without abnormal findings), Encounter for screening mammogram for breast cancer (Renamed from Encounter for screening mammogram for malignant neoplasm of breast), Encounter for screening for malignant neoplasm of colon (Renamed from Special screening for malignant neoplasms, colon), Body mass index 32.0-32.9, adult, Nonsmoker [facility] Visit On: 07-May-2016 8:02 Encounter Reason: Follow up tests - Date: (04/29 blood work)., [ADDITIONAL REASON] Follow up for chronic medical issues - The patient feels well with no complaints End: 07-May-2016 10:01 , has good energy level and is sleeping well. Patient has been compliant with instructions. Current medication use: no side effects and compliant with dosing regimen. Patient sleeps 8 hours per night. N utrition: balanced diet, supplemental vitamins and low salt diet. The medical issues the patient is following up for include All identified problems below, high blood pressure, high cholesterol, hypothy roid and other (ddd, anemia, allergic rhinitis). Note for Follow up for chronic medical issues: feels good better on low dose sertraline her coccyx pain better-bp is good and discussed chol- no sarcoi d sx - gettingmore active feeling better- not taking her vitamin d Encounter Diagnosis: Hypercholesteremia, Acquired hypothyroidism, Anxiety (300.00), Essential hypertension, Vitamin D deficiency, unspecified, History of sarcoidosis, Need for prophylactic vaccination and inoculation against influenza [facility] Visit On: 26-Mar-2016 9:00 Encounter Reason: Cold Symptoms - Symptoms include nasal congestion, postnasal drainage, sore throat (comes and goes), productive cough and facial pressure. Onset was gradual 8 day(s) ago. There is no known event that pr End: 26-Mar-2016 9:23 eceded symptom onset. The symptoms occur constantly. The patient describes this as unchanged. By report there is good compliance with treatment. Previous presentation included nasal congestion, postnasal drainage, sore throat and productive cough. Encounter Diagnosis: Cough, Wheezing, Allergic Rhinitis(477.9) [facility] Visit On: 18-Feb-2016 9:26 Encounter Reason: Eye Pain - The onset of the eye pain has been sudden and has been occurring for days. The course has been increasing. The eye pain is described as moderate. The pain is located in the right eye. Symptoms are relieved by eye drops. End: 18-Feb-2016 10:14 Encounter Diagnosis: Eye pain, Conjunctivitis [facility] Phone Encounter On: 01-Jan-2016 15:55 Encounter Diagnosis: Hypercholesteremia, Acquired hypothyroidism, Vitamin D deficiency, unspecified End: 01-Jan-2016 16:06 [facility] Visit On: 31-Dec-2015 9:57 Encounter Reason: Follow up Meds - The patient feels well with minor complaints (little bit of a lingering cough yet but non-productive and feels its sarcoidosis related), has good energy level and is sleeping well. Patricia End: 31-Dec-2015 21:00 ent has been compliant with instructions. Current medication use: no side effects, compliant with dosing regimen and considered effective by patient. Patient sleeps 8 hours per night. Note for Follow u p Meds: F/u on generic Singular for allergies. Pt states its working great.she really likes the montelukast and has helped with cough and wheeeze- and taking kristina in am wants to continue on this feels alot betterEncounter Diagnosis: Allergic rhinitis due to other allergen (477.8), Anxiety (300.00) [facility] Visit On: 03-Dec-2015 9:36 Encounter Reason: Cough - The onset of the cough has been gradual. The cough is characterized as productive of mucoid sputum. The amount of sputum produced is scanty. The cough occurs all the time. The symptoms are not End: 03-Dec-2015 21:48 aggravated by supine posture. The symptoms have been associated with headache, runny nose and wheezing, while the symptoms have not been associated with dyspnea, fever or sore throat. the color of the s putum is clear. Note for Cough : little sob - her spoutum now clear to milky - having allergy sx- took allergy shots in past quit didnt help- no joint pain or rash like sarcoid flaring- did use inhaler seemed to helpEncounter Diagnosis: Wheezing, Cough, Allergic rhinitis due to other allergen (477.8) [facility] Visit On: 12-Nov-2015 16:10 Encounter Reason: Flu Like Symptoms - Symptoms include body aches, runny nose, postnasal drainage, productive cough and headache. Onset was sudden 5 day(s) ago. The symptoms occur constantly. The patient describes this a End: 12-Nov-2015 15:37 s unchanged. Symptoms are not exacerbated by activity, lying down or cold air. Symptoms are not relieved by cough suppressants, inhaler use, lying down, non- prescription cold medications or oral fluids. Associated symptoms include wheezing and fatigue. Note for Flu like symptoms: took pseudofed but not working Encounter Diagnosis: Flu-like symptoms, URI (upper respiratory infection), Diarrhea [facility] Visit On: 31-Oct-2015 9:51 Encounter Reason: Nurse procedure visit - Reason for visit: other (urinalysis).Encounter Diagnosis: History of dysuria End: 31-Oct-2015 10:19 [facility] Visit On: 17-Oct-2015 9:34 Encounter Reason: Follow up tests - Date: (10/15/15 blood work)., [ADDITIONAL REASON] Follow up for chronic medical issues - The patient feels well with no complaints End: 21-Oct-2015 17:32 , has good energy level and is sleeping well. Patient has been compliant with instructions. Current medication use: no side effects and compliant with dosing regimen. Patient sleeps 9 hours per night. N utrition: balanced diet, supplemental vitamins and low salt diet. The medical issues the patient is following up for include All identified problems below, high blood pressure, high cholesterol, hypothy roid and other (ddd, anemia, allergic rhinitis). Note for Follow up for chronic medical issues: feels good better on low dose sertraline her coccyx pain better-bp is good and discussed chol- no sarcoi d sx - gettingmore active feeling better- not taking her vitamin d Encounter Diagnosis: Acquired hypothyroidism, Essential hypertension, Hypercholesteremia, Vitamin D deficiency, unspecified, Anxiety (300.00), Hematuria [facility] Visit On: 07-Jun-2015 10:46 Encounter Reason: Injections - The medication the patient is here to receive is other.Encounter Diagnosis: Need for prophylactic vaccination and inoculation against influenza End: 07-Jun-2015 12:14 [facility] Phone Encounter On: 04-Jun-2015 14:36 Encounter Diagnosis: Hematuria End: 04-Jun-2015 14:37 [facility] Visit On: 11-Apr-2015 10:05 Encounter Reason: Annual Medicare Exam - The patient had reviewed and updated the family history, medication/s, past medical history and social history. Yes the patient did have (passed with .) a mini mental status End: 12-Apr-2015 21:15 exam done today. The activities of daily living the patient needs help with are none. The patient has driven in past 6 months, fallen in the past 6 months (when moved, was carrying boxes and knee repeat idly gave out but otherwise no problems with falling.) and put area rugs through house, but the patient has not had fecal incontinence, had urinary incontinence, missed or ran out of medications to soon , gotten lost, has a medalert necklace or bracelet or put handrails in bathroom. The patient has completed the following preventative measures: PAP smear (2010), mammography (2013) and colonoscopy (8 ye ars ago). The patient does have durable power of attorney at law and living will. The patient has noticed nothing from the geriatic depression scale. Other providers contributing to the patient's care are derm atologist (Dr. Candelario), gastrologist (Dr. Marion) and other: (Dr. Audrey Clemente)., [ADDITIONAL REASON] Follow up for chronic medical issues - The patient feels well with minor complai nts (tailbone pain off and on continues-), has good energy level and is sleeping well. Patient has been compliant with instructions. Current medication use: no side effects and compliant with dosing reg imen. Patient sleeps 7 hours per night. Nutrition: balanced diet, supplemental vitamins and low salt diet. The medical issues the patient is following up for include All identified problems below, high blood pressure, high cholesterol, hypothyroid and other (ddd, anemia, allergic rhinitis). Note for Follow up for chronic medical issues: doing well no sarcoid issues bp good aniety godean and wilner npainnot routinely agained offered referral to ortho she doesnt wish to do - -no gerd , [ADDITIONAL REASON] Follow up, Laboratory Test Results - Date: (03/29/15). , [ADDITIONAL REASON] Well Women Exam - The patient feels well with no complaints, has good energy level and is sleeping well. Pap smear: date of last pap: (2010). Contraceptive history: The patient is n ot using any method of contraception at this time. Patient exercises 3 - 4 times per week. The patient's libido is decreased. The patient reports that she does not perform monthly breast self exam. Calc ium intake includes 1 serving milk daily. The patient denies the use of oral contraceptives or hormone replacement therapy. Menstruation: Last menstrual period date: (post-estevan). Note for Well Women Exam: no breast mass no [id number] Encounter Diagnosis: Annual Medicare Physical (V70.0), Well Woman Exam , Medicare (V76.2) (Renamed from Well Woman Exam , Medicare (V76.2, V72.31)), Breast cancer screening, Other and unspecified hyperlipidemia (272.4), Hypertension (401.0), DEFICIENCY, VITAMIN D NOS (268.9) [facility] Phone Encounter On: 09-Apr-2015 9:41 [facility] End: 09-Apr-2015 9:42 Office Visit On: 09-Apr-2015 9:02 Encounter Reason: Cough - The last clinic visit was 3 day(s) ago. Management changes made at the last visit include adding medication (atbs). Symptoms include cough, runny nose, stuffy nose and sore throat. The cough is End: 09-Apr-2015 9:37 described as productive (thicker yellowish). Cough onset was gradual 3 day(s) ago. Onset of cough followed cold symptoms (bronchitis). The cough occurs constantly. The episodes last for 3 days. Symptoms are described as moderate in severity and worsening. Symptoms are exacerbated by lying down. Symptoms are not relieved by air conditioning, humidified air, warm drinks, warm weather, avoiding irritants , resting, lying down, sitting up, cough drops, cough medicine, acetaminophen, nonsteroidal anti-inflammatory drugs or inhaled bronchodilator use. Associated symptoms include postnasal drainage and pain ful swallowing. The patient is not currently being treated for this problem. By report there is good compliance with treatment. Pertinent medical history does not include asthma, chronic bronchitis, chr onic obstructive pulmonary disease, cystic fibrosis, sinusitis, pulmonary disease, tuberculosis, environmental allergies, urticaria, congestive heart failure, myocardial infarction, stroke, diabetes, ga stroesophageal reflux disease, neoplasm, obesity or up to date influenza vaccination. Pertinent family history does not include asthma, eczema, coagulation disorder or tuberculosis. Previous presentatio n included a cough, a runny nose and a sore throat. This problem has not been previously treated., [ADDITIONAL REASON] Sore Throat - The last clinic visit was 3 day(s) ago. Symptoms include sore thro at, nasal congestion, postnasal drainage and swollen glands. The symptoms are symmetrical. The pain radiates to the left ear and right ear. The patient describes the pain as burning. Onset was gradual 3 day(s) ago. The symptoms occur constantly. Symptoms are exacerbated by swallowing liquids and swallowing solids. Symptoms are not relieved by antihistamines, decongestants, drinking liquids, salt water gargles, non-prescription throat lozenges, cool mist humidifier, non-opioid analgesics or opioid analgesics. The patient is not currently being treated for this problem. By report there is good complia nce with treatment. Presenting symptoms included sore throat, nasal congestion, postnasal drainage and swollen glands. This problem has not been previously treated. Encounter Diagnosis: Cough (786.2), ACUTE PHARYNGITIS (462.), Allergic Rhinitis(477.9), SINUSITIS, ACUTE NOS (461.9) [facility] Office Visit On: 08-Mar-2015 14:20 Encounter Diagnosis: Allergic rhinitis due to other allergen (477.8) End: 11-Mar-2015 18:32 [facility] Office Visit On: 08-Mar-2015 8:17 Encounter Reason: Cough - The last clinic visit was 5 day(s) ago. No changes in management were made at the last visit. Symptoms include cough, runny nose and sore throat, while symptoms do not include wheezing, chills, End: 08-Mar-2015 9:10 fever or stuffy nose. The cough is described as hacking, moist and productive. Cough onset was day(s) ago. The cough occurs constantly. Symptoms are described as moderate in severity and worsening. Asso ciated symptoms include postnasal drainage. Current treatment includes decongestants.Encounter Diagnosis: Cough (786.2), BRONCHITIS, NOT SPECIFIED ACUTE OR CHRONIC (490.) [facility] Office Visit On: 15-Dec-2014 11:58 Encounter Reason: UTI nurse visitEncounter Diagnosis: URINARY TRACT INFECTION, SITE NOT SPECIFIED (599.0) End: 17-Dec-2014 11:57 [facility] Office Visit On: 04-Oct-2014 15:11 Encounter Reason: Follow up for chronic medical issues - The patient feels well with no complaints, has good energy level and is sleeping well. Patient has been compliant with instructions. Current medication use: no xander End: 04-Oct-2014 21:31 e effects and compliant with dosing regimen. Patient sleeps 7 hours per night. Nutrition: balanced diet, supplemental vitamins and low salt diet. The medical issues the patient is following up for inclu de All identified problems below, high blood pressure, high cholesterol, hypothyroid and other (ddd, anemia, allergic rhinitis). Note for Follow up for chronic medical issues: No routine labs done for todays visit.- she is downhill skiing again did pt and excited- saw sibilia and did pfts and breathing improved and no sarcoid issues - her bps have been usually below 90- usually under 80- and had cut in half as wa lightheaded - saw doni he didnt feel she needed scope- - not there all the time but pain in tailbone if sits a long time Encounter Diagnosis: Hypertension (401.0), Coccyalgia, Other and unspecified hyperlipidemia (272.4), Anxiety (300.00), DEFICIENCY, VITAMIN D NOS (268.9), Hypothyroidism (244.9) [facility] Office Visit On: 09-Jun-2014 9:36 Encounter Reason: Injections - The medication the patient is here to receive is other (flu).Encounter Diagnosis: Need for prophylactic vaccination and inoculation against influenza (V04.81) End: 09-Jun-2014 9:40 [facility] Phone Encounter On: 05-Jun-2014 10:23 Encounter Diagnosis: Unspecified Diagnosis End: 05-Jun-2014 10:26 [facility] Office Visit On: 03-May-2014 8:52 Encounter Reason: Follow up acute care visit - The patient feeling better since last seen and improving. Patient has been compliant with instructions. Current medication use: no side effects, compliant with dosing regime End: 03-May-2014 9:30 n and considered effective by patient. The medical issues the patient is following up for include other (hypotension).Encounter Diagnosis: Hypertension (401.0), Hypothyroidism (244.9) [facility] Office Visit On: 19-Apr-2014 8:45 Encounter Reason: hypotension - denies- dizziness, lightheadedduration- months Encounter Diagnosis: Hypotension, Hypothyroidism (244.9) End: 19-Apr-2014 9:19 [facility] Office Visit On: 10-Apr-2014 8:14 Encounter Reason: BP nurse visit - The symptoms have been associated with other.[facility] End: 10-Apr-2014 8:49 Office Visit On: 29-Mar-2014 10:35 Encounter Reason: Follow up for chronic medical issues - The patient feels well with minor complaints (hot flashes again), has good energy level and is sleeping well. Patient has been compliant with instructions. Current End: 29-Mar-2014 20:25 medication use: no side effects and compliant with dosing regimen. Patient sleeps 7 hours per night. Nutrition: balanced diet, supplemental vitamins and low salt diet. The medical issues the patient is following up for include All identified problems below, high blood pressure, high cholesterol, hypothyroid and other (ddd, anemia, allergic rhinitis). Note for Follow up for chronic medical issues: N o routine labs done for todays visit.- weight down 9 pounds and trying she is working sith [place] and bp lower now and has some lightheadedness -knee better with exercise - sarcoid doing well no uti sxEncounter Diagnosis: Hypercholesteremia (272.0), Hypertension (401.0), URINARY TRACT INFECTION, SITE NOT SPECIFIED (599.0), DEFICIENCY, VITAMIN D NOS (268.9), Hypothyroidism (244.9), SARCOIDOSIS (135.), screening [facility] Office Visit On: 13-Jan-2014 10:09 Encounter Reason: UTI - The urinary symptoms are described as frequency and burning. The symptoms have been occurring for days and have been ??constant. The urine is described as clear. There has been no associated fever End: 13-Jan-2014 10:24 , abdominal pain or low back pain. There is no medical history of diabetes, current or recurrent urinary tract infections. The patient denies the use of oral contraceptives, antibiotics, hormone replacement therapy or pyridium/uristat. Encounter Diagnosis: SYMPTOMS INVOLVING URINARY SYSTEM; DYSURIA (788.1), Hematuria [facility] Office Visit On: 02-Nov-2013 9:25 Encounter Reason: Knee Pain - This condition occurred without any known injury. The injury involved the right knee. This occurred day(s) ago. Symptoms include knee pain, swelling, decreased range of motion, instability, End: 02-Nov-2013 10:43 difficulty bearing weight, difficulty ambulating and audible pop at the time of injury, while symptoms do not include locking. Symptoms are located in the right knee.Encounter Diagnosis: osteoarthrosis, lower leg (715.36) [facility] Office Visit On: 26-Oct-2013 11:07 Encounter Reason: Knee Pain - This condition occurred without any known injury. The injury involved the right knee. This occurred day(s) ago. Symptoms include knee pain, swelling, decreased range of motion, instability, End: 26-Oct-2013 12:21 difficulty bearing weight, difficulty ambulating and audible pop at the time of injury, while symptoms do not include locking. Symptoms are located in the right knee.Encounter Diagnosis: Knee pain (719.46) [facility] Office Visit On: 17-Aug-2013 14:08 Encounter Reason: UTI - The urinary symptoms are described as painful urination, frequency, urgency and burning. The symptoms have been occurring for hours and have been constant. The urine is described as clear. There End: 17-Aug-2013 14:50 has been no associated fever, abdominal pain or low back pain. There is no history of sexual contact with a person having an STD or use of tampons. There is no medical history of diabetes, current pregn len, vaginitis, kidney stones or recurrent urinary tract infections. The patient denies the use of oral contraceptives, antibiotics, hormone replacement therapy or pyridium/uristat.Encounter Diagnosis: SYMPTOMS INVOLVING URINARY SYSTEM; DYSURIA (788.1) [facility] Office Visit On: 27-Jul-2013 10:16 Encounter Reason: Annual Medicare Exam - The patient had reviewed and updated the family history, medication/s, past medical history and social history. Yes the patient did have a mini mental status exam done today. The End: 27-Jul-2013 16:49 activities of daily living the patient needs help with are none. The patient has not had fecal incontinence, had urinary incontinence, missed or ran out of medications to soon, driven in past 6 months, fallen in the past 6 months, gotten lost, has a medalert necklace or bracelet, put area rugs through house or put handrails in bathroom. The patient has completed the following preventative measures: PA P smear (2 yrs), mammography (2012) and colonoscopy (7 yrs). The patient does have durable power of attorney at law and living will. The patient has noticed nothing from the geriatic depression scale. Other pr oviders contributing to the patient's care are meter technician (Dr. Candelario), gastrologist (Dr. Marion) and other: (Dr. Horowitz). Note for Annual Medicare Exam: new to medicare physicalEncounter Diagnosis: Annual Medicare Physical (V70.0), Well Woman Exam (V72.31) (Pap,Mammo,Routine Female) (Renamed from Well Woman V72.31 (p,m)) [facility] Office Visit On: 19-Jul-2013 8:41 Encounter Reason: Follow up for chronic medical issues - The patient feels well with minor complaints, has good energy level and is sleeping well. Patient has been compliant with instructions. Current medication use: no End: 19-Jul-2013 10:01 side effects and compliant with dosing regimen. Patient sleeps 7 hours per night. Nutrition: balanced diet, supplemental vitamins and low salt diet. The medical issues the patient is following up for in clude All identified problems below, high blood pressure, high cholesterol, hypothyroid and other (ddd, anemia, allergic rhinitis). Note for Follow up for chronic medical issues: No routine labs done for today. she is feeling well- saw Dr laurent this past summer for sarcoid and has followup in aug- she isnt sob and has alot of energy- Encounter Diagnosis: Hypertension (401.0), DEFICIENCY, VITAMIN D NOS (268.9), Hypothyroidism (244.9), Other and unspecified hyperlipidemia (272.4) [facility] Office Visit On: 22-Apr-2013 11:52 Encounter Reason: Sinusitis/ - The duration of the symptoms are 4 days The course has been constant. The sinusitis/ has no relieving factors. Associated features include The symptoms have been associated with cough, ear End: 22-Apr-2013 12:30 pain, nasal discharge/stuffy nose and sinus pain.Encounter Diagnosis: BRONCHITIS, NOT SPECIFIED ACUTE OR CHRONIC (490.) [facility] Office Visit On: 28-Jan-2013 13:01 Encounter Reason: Follow up for chronic medical issues - The patient feels well with no complaints, has good energy level and is sleeping well. Patient has been compliant with instructions. Current medication use: no xander End: 28-Jan-2013 13:33 e effects and compliant with dosing regimen. Patient sleeps 7 hours per night. Nutrition: balanced diet, supplemental vitamins and low salt diet. The medical issues the patient is following up for inclu de All identified problems below, high blood pressure, high cholesterol, hypothyroid and other (ddd, anemia, allergic rhinitis). Note for Follow up for chronic medical issues: pelvis hip thigh pain go ne- the therapy at [employer] [employer] helped - bp stable and no more sarcoid rash and seesing sibilia and monitoring her lungs- she is exercising- mood good - just retired , [ADDITIONAL REASON] Follow up, Laboratory Test Results - Date: (01/15/13). Encounter Diagnosis: Hypertension (401.0), Allergic Rhinitis(477.9), screening , Hypercholesteremia (272.0), Fatigue (780.79), DEFICIENCY, VITAMIN D NOS (268.9), Hypothyroidism (244.9), Anxiety (300.00) [facility] Office Visit On: 27-Sep-2012 16:59 Encounter Reason: suture removal - The lesion requiring suture removal happened days ago. The apparent size of the suture removal is 2 cm.Encounter Diagnosis: Sebaceous Cyst (706.2), Visit for suture removal (V58.32) End: 27-Sep-2012 17:35 [facility] Office Visit On: 17-Sep-2012 7:45 Encounter Reason: Skin Lesions - The last clinic visit was 2 week(s) ago. No changes in management were made at the last visit. Symptoms include single skin lesion. Lesion(s) are located on the right trunk area. The patricia End: 17-Sep-2012 8:31 ent describes the lesion(s) as painful and red. Onset was sudden. There is no known event that preceded symptom onset. The symptoms occur constantly. The patient describes this as moderate in severity.Encounter Diagnosis: Sebaceous Cyst (706.2) [facility] Visit On: 09-Sep-2012 8:40 Encounter Reason: Skin Lesions - The last clinic visit was 2 week(s) ago. No changes in management were made at the last visit. Symptoms include single skin lesion. Lesion(s) are located on the right trunk area. The patricia End: 09-Sep-2012 9:22 ent describes the lesion(s) as painful and red. Onset was sudden. There is no known event that preceded symptom onset. The symptoms occur constantly. The patient describes this as moderate in severity.Encounter Diagnosis: Cellulitis (682.9), Rash (782.1), Sebaceous Cyst (706.2) [facility] Visit On: 26-Jul-2012 16:30 Encounter Reason: Follow up for chronic medical issues - The patient feels well with minor complaints (left hip pain- hx of OA and thinks may have over- compensated when had knee issues?? Also was told by Antoinette that had End: 27-Jul-2012 22:37 dialated bile duct but they never said if anything to do about that and she then never re- addressed it so wonders if theres anything that should be followed up on that?), has good energy level and is s leeping well. Patient has been compliant with instructions. Current medication use: no side effects and compliant with dosing regimen. Patient sleeps 7 hours per night. Nutrition: balanced diet, supplem ental vitamins and low salt diet. The medical issues the patient is following up for include All identified problems below, high blood pressure, high cholesterol, hypothyroid and other (ddd, anemia, all ergic rhinitis). Note for Follow up for chronic medical issues: she saw Doni- and had followup us and was told bile duct slightly dilated- she hasnt been back but will call him and schedule a follow up and has followup with mehran in aug- and no more abd pain or lung or skin related issues- and bp is good and weight is coming down and in general feeling better , [ADDITIONAL REASON] Follow up, Laboratory Test Results - Date: (07/19/12). Encounter Diagnosis: Hypertension (401.0), Anxiety (300.00), SARCOIDOSIS (135.), Other and unspecified hyperlipidemia (272.4), Hypothyroidism (244.9), DEFICIENCY, VITAMIN D NOS (268.9), Pelvis/Thigh/Hip Pain (719.45) [facility] Annotation/Addendum On: 23-Apr-2012 9:03 Encounter Diagnosis: recurrent UTI End: 23-Apr-2012 9:06 [facility] Office Visit On: 05-Apr-2012 8:52 Encounter Reason: Follow up for chronic medical issues - The patient feels well with minor complaints (wants to re-addresss some previous discussions of right knee pain and bowels- has been having loose bowel movements a End: 05-Apr-2012 23:17 nd started taking Align which has helped some so far-new complaint of possible infected lesion on nose), has good energy level and is sleeping well. Patient has been compliant with instructions. Current medication use: no side effects and compliant with dosing regimen. Patient sleeps 7 hours per night. Nutrition: balanced diet, supplemental vitamins and low salt diet. The medical issues the patient is following up for include All identified problems below, high blood pressure, high cholesterol, hypothyroid and other (ddd, anemia, allergic rhinitis). Note for Follow up for chronic medical issues: s he has been more sednetary becuase her knee had been an issue and she is back to exercise now- and needs to get back on oatmeal as was off of that- --we offered for her to see someone again for her knee as still intermittent swelling - but not ready to do something more for it - no new sx with sarcoid- seeing mehran , [ADDITIONAL REASON] Follow up, Laboratory Test Results - Date: (03/16/12). , [ADDITIONAL REASON] Skin Lesion, Facial - Symptoms include non-healing lesion (??). The condition involves a single lesion. Lesion(s) are located on the right nasal area. Onset was sudden 1 week(s) ago . The symptoms occur constantly. The patient describes this as improving. Associated symptoms do not include fever. Current treatment includes topical antibiotics. Note for Skin Lesion, Facial: Pt had this lesion removed last week from Dr. Candelario and thinks it may have infection in it? Encounter Diagnosis: dilated common bile duct , Hypertension (401.0), Other and unspecified hyperlipidemia (272.4), Hypothyroidism (244.9), DEFICIENCY, VITAMIN D NOS (268.9), SARCOIDOSIS (135.) [facility] Annotation/Addendum On: 29-Mar-2012 15:44 Encounter Diagnosis: postmenopausal without estogen End: 29-Mar-2012 15:49 [facility] Visit On: 19-Mar-2012 10:53 Encounter Reason: Follow up tests - Diagnostic tests include other (abd U/S). Date: (03/18/12). Follow up visit with no current symptoms. There is no family history of breast cancer, cardiovascular disease, cystic fibrosi End: 19-Mar-2012 11:31 s, Down's syndrome, mental retardation or myocardial infarction before age 55. Past medical history includes hypertension and other (anxiety, hypothyroid).Encounter Diagnosis: Abdominal Pain,RUQ(789.01), Hypercholesteremia (272.0) [facility] Visit On: 15-Mar-2012 14:31 Encounter Reason: Abdominal Pain, Female - Symptoms include abdominal pain, while symptoms do not include nausea, vomiting or diarrhea. The pain is located in the periumbilical. There is no radiation. The patient describ End: 15-Mar-2012 15:12 es the pain as aching. Onset was sudden 1 week(s) ago. The patient describes this as moderate in severity and worsening. Associated symptoms include flatulence, while associated symptoms do not include fever.Encounter Diagnosis: Abdominal Pain,RUQ(789.01) [facility] Office Visit On: 25-Feb-2012 8:49 Encounter Reason: Knee Pain - This condition occurred following a specific injury. The injury involved the right knee. This occurred 3 month(s) ago (Since sx November 11). Note for Knee Pain: she has been back to [facility] End: 25-Feb-2012 9:37 and 3 seesions of thearpy- he told her she will eventually need knee replacemnt-- had arthrosocpy in october- wants to gain more strength - still some swelling not taking any meds- knee has gotten better since surgeryEncounter Diagnosis: Knee pain (719.46) [facility] Office Visit On: 19-Dec-2011 11:35 Encounter Reason: Sore Throat - The last clinic visit was 3 day(s) ago. No changes in management were made at the last visit. Symptoms include sore throat. The symptoms are symmetrical. There is no radiation. The patient End: 19-Dec-2011 12:09 describes the pain as sharp and aching. The symptoms occur constantly. The patient describes this as moderate in severity and unchanged. Associated symptoms include headache and hoarseness.Encounter Diagnosis: ACUTE PHARYNGITIS (462.), Anxiety (300.00) [facility] Annotation/Addendum On: 29-Oct-2011 9:34 Encounter Diagnosis: DEFICIENCY, VITAMIN D NOS (268.9) End: 29-Oct-2011 9:35 [facility] Office Visit On: 27-Oct-2011 16:11 Encounter Reason: Follow up - Pt is following up after seeing Dr. Heard for her sarcoidosis which he then sent her to see Mehran and he said she checked out fine. She also has seen Dr. Figueroa for a torn meniscus and is End: 27-Oct-2011 17:10 having a procedure done for it.--- she did see Orquidea- and she feels did thorough job- and did think was sarcoid- did start her on vit d fr low vit d - she saw Mehran- had normal pfts per patient- and he reviewed ct of chest with her- she has followup with him in january- - and her fatigue and e .nodosum is resolved- she is jessica feeling better- has followup with mehran in january- her knee has beco me a problem now more routinely the torn menisicus- tylenol does help- so she has decided to get ??that taken care of- november 13 she has surgery with jose alfredo- she doesnt want to get back on meds for anxietyEncounter Diagnosis: Hypertension (401.0), SARCOIDOSIS (135.), Erythema nodosum (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 Date: (05/2011). Current symptoms include headache and other (red spots on lower extremities. ). 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 Lesion(s) are located on the left arm, left leg, right arm and right leg. The patient describes the lesion(s) as painful (if bumped), raised and re End: 27-May-2011 8:18 d. Onset was sudden 1 week(s) ago. There is no known event that preceded symptom onset. The symptoms occur constantly. The patient describes this as moderate in severity and worsening. Associated sympto ms do not include chills, fever, joint pain, nausea, shortness of breath, vomiting or wheezing. The patient is not currently being treated for this problem. Note for Skin Lesions: Pt has hx of sarcoid osis and when had a flare years ago it was the same symptoms.- about 25 years ago- was told it was mild- but didnt have biopsy- but they thought that is what is was- cleared up without therapy- painful raised areas on skin- had painful right knee and recently got steroid injection- but has had issues with this before - this knee- - has had more fatigue- is taking something otc told her if nsaid needs to stop she is not sure- - had recent eye exam with no sarcoid found- mild throat cough - taking loratadine- this is chronic- helping driange but still dry cough - with mild wheezing or sob- no fever- no diarrheaEncounter Diagnosis: Erythema nodosum (695.2), Fatigue (780.79), Cough (786.2) [facility] Office Visit On: 02-May-2011 10:28 Encounter Diagnosis: Unspecified Diagnosis End: 02-May-2011 15:00 [facility] Office Visit On: 02-May-2011 6:52 Encounter Reason: Knee Pain - This condition occurred without any known injury (6mo this time but 3 years ago she did have some injury from it. But I sit on the floor alot at school and I notice that I can't bend that kn End: 02-May-2011 9:29 ee up enough without pain. SO I need to know what is the next step). The injury involved the right knee. Management changes made at the last visit include ordering went to physical therapy last time nad worked it out . Symptoms include knee pain, stiffness, decreased range of motion and difficulty ambulating (limping now so i figured i better get addressed ), while symptoms do not include swelling, wa rmth, redness, locking, instability, difficulty bearing weight or audible pop at the time of injury. Symptoms are located in the right knee. There is no radiation. The patient describes the pain as mirza p. Onset was gradual 6 month(s) ago. The patient describes symptoms as moderate in severity and unchanged.Encounter Diagnosis: Knee pain (719.46), osteoarthrosis, lower leg (715.36) [facility] Office Visit On: 11-Apr-2011 9:09 Encounter Reason: Well Women Exam - The patient feels well with no complaints, has good energy level and is sleeping well. Pap smear: date of last pap: (09/13/08). Contraceptive history: The patient is not using any metho End: 11-Apr-2011 10:59 d of contraception at this time. Patient exercises 3 - 4 times per week. The patient's libido is normal. The patient reports that she does not perform monthly breast self exam. Calcium intake includes 1 500 mg with Vit D daily supplement. The patient denies the use of oral contraceptives or hormone replacement therapy. Menstruation: Last menstrual period date: (post-estevan). Note for Well Women Exam: P t mentioned a cough and her right knee bothering her. I explained those have to be separate visits and she understood.Encounter Diagnosis: Well Woman Exam (V72.31) (Pap,Mammo,Routine Female) (Renamed from Well Woman V72.31 (p,m)) [facility] Office Visit On: 17-Feb-2011 9:27 Encounter Reason: Follow up for chronic medical issues - The patient feels well with minor complaints (pt states has talked about tendonitis with df before- states its recurrent since took atb last fall, now in both shou End: 17-Feb-2011 10:14 lders.), has good energy level and is sleeping well. Patient has been compliant with instructions. Current medication use: no side effects and compliant with dosing regimen. Patient sleeps 8 hours per n ight. Nutrition: balanced diet, supplemental vitamins and low salt diet. The medical issues the patient is following up for include All identified problems below, high blood pressure, high cholesterol, hypothyroid and other (ddd, anemia, allergic rhinitis). weight : (185). Note for Follow up for chronic medical issues: having allergy draiange- - she will take plain zyrtec- and see how does hasnt tri ed-0 she is feeling pretty well- otherwise- she has gained weight so will work harder- thyroid and chol good- she is working on again- back and leg doing well- anxiety pretty well controlled- she is on half a pill a day- , [ADDITIONAL REASON] Follow up, Laboratory Test Results - Date: (10/26/10). Encounter Diagnosis: Hypothyroidism (244.9), Hypertension (401.0), Other and unspecified hyperlipidemia (272.4), Degenerative Disc Disease - Lumbar (722.52), Allergic Rhinitis(477.9), Anxiety (300.00), screening, postmenopausal without estrogen, Shoulder pain (719.41) [facility] Office Visit On: 14-Aug-2010 9:10 Encounter Reason: Cough - The onset of the cough has been gradual and has been occurring in a persistent pattern for 7 weeks. The course has been constant. The cough is characterized as productive of mucopurulent sputum End: 14-Aug-2010 10:07 (light yellow). The amount of sputum produced is scanty. The cough occurs all the time. The symptoms are not aggravated by supine posture, meals or exercise. The symptoms have been associated with heada wil, hoarseness, runny nose and wheezing, while the symptoms have not been associated with dyspnea, fever or sore throat. Note for Cough: has had 2 courses of antiobioitcs- and doesnt feelinhaler make s big difference - no fever- some wheezing - not sob- alot of coughing jagsEncounter Diagnosis: Cough (786.2) [facility] Office Visit On: 31-Jul-2010 7:48 Encounter Reason: Follow up acute care visit - The patient does not feel well and has decreased energy level. Patient has been compliant with instructions. Current medication use: no side effects, compliant with dosing r End: 31-Jul-2010 10:46 egimen and not considered effective by patient. Patient sleeps 6 hours per night. The medical issues the patient is following up for include All identified problems below and other (sinusitis).Encounter Diagnosis: Allergic rhinitis due to other allergen (477.8), Cough (786.2), Wheezing (786.07), BRONCHITIS, NOT SPECIFIED ACUTE OR CHRONIC (490.) [facility] Office Visit On: 15-Jul-2010 7:56 Encounter Reason: Cough - The onset of the cough has been sudden. The cough is characterized as dry. The amount of sputum produced is scanty. The cough occurs all the time. The symptoms are aggravated by supine posture. End: 15-Jul-2010 8:15 The symptoms have been associated with headache (frontal), hoarseness and wheezing, while the symptoms have not been associated with dyspnea, fever or runny nose. the color of the sputum is clear (milkey).Encounter Diagnosis: BRONCHITIS, NOT SPECIFIED ACUTE OR CHRONIC (490.), Cough (786.2), Wheezing (786.07) [facility] Office Visit On: 17-Apr-2010 8:35 Encounter Reason: Follow up for chronic medical issues - The patient feels well with no complaints ,has good energy level and is sleeping well. Patient has been compliant with instructions. Current medication use: no xander End: 17-Apr-2010 9:11 e effects and compliant with dosing regimen. Patient sleeps 7 hours per night. Nutrition: balanced diet ,supplemental vitamins and low salt diet. The medical issues the patient is following up for inclu de All identified problems below ,high blood pressure ,high cholesterol ,hypothyroid and other (ddd, anemia, allergic rhinitis). weight : (180). Note for Follow up for chronic medical issues: she is f eeling well and bp is good and she feels the meds are controlling anxiety- labs look good and thyroid- and had her foot sx did well- back has been greatEncounter Diagnosis: Hypertension (401.0), Anxiety (300.00), Hypothyroidism (244.9), Degenerative Disc Disease - Lumbar (722.52), Other and unspecified hyperlipidemia (272.4), Anemia(285.9), Allergic Rhinitis(477.9) [facility] Office Visit On: 24-Dec-2009 16:16 Encounter Reason: Preoperative evaluation - The patient feels well with no complaints ,has good energy level and is sleeping well. Surgical procedures include: other (foot surgery on left foot-01/02/10). Date of procedure: End: 24-Dec-2009 17:13 (01/02/10). There have been no problems with general anesthesia or blood/blood products. Prosthetics include: eye glasses. , [ADDITIONAL REASON] Follow up, Laboratory Test Results - Date: (11/10/09 see face sheet). Encounter Diagnosis: Pre-operative examination, unspecified (V72.84), Hallux valgus, acquired (735.0), Degenerative Disc Disease - Lumbar (722.52), Hypothyroidism (244.9), Anxiety (300.00), Hypertension (401.0) [facility] Office Visit On: 13-Aug-2009 8:05 Encounter Reason: Sinusitis/ - The duration of the symptoms are 1 week The course has been worsening. The sinusitis/ are relieved by OTC cold medications (sudafed). Associated features include The symptoms have been asso End: 13-Aug-2009 8:25 ciated with cough ,ear pain (bilatteral) ,sinus pain ,sore throat and swollen lymph glands (swoling), while the symptoms have not been associated with teeth pain. No previous evaluations were reported. none reported. Encounter Diagnosis: Acute sinusitis (461.9), Allergic rhinitis due to other allergen (477.8) [facility] Office Visit On: 25-Jun-2009 17:16 Encounter Reason: Follow up for chronic medical issues - The patient feels well with minor complaints (tongue gets sore and continued ear problems. Pt seeing ENT on thursday of this week.) ,has good energy level and is End: 25-Jun-2009 23:05 sleeping well. Patient has been compliant with instructions. Current medication use: no side effects and compliant with dosing regimen. Patient sleeps 8 hours per night. Nutrition: balanced diet ,supple mental vitamins and low salt diet. The medical issues the patient is following up for include All identified problems below ,high blood pressure ,high cholesterol ,hypothyroid and other (ddd, anemia, al lergic rhinitis). weight :. Note for Follow up for chronic medical issues: her bp is good- and she is seeing Scottie for her ear still having issues with hearing-- she is feeling well- moodis good- elmore d little anxiety beginning of year but doing well now- and chol ok- but needs to keep working on diet and exercise- thyroid is good- she did see Dr Horn -for counseling and this has helped- no abdomin al sx- no more sx with back if keeps doing the exercises, [ADDITIONAL REASON] Follow up, Laboratory Test Results - Date: (06/16/09). Encounter Diagnosis: Hypertension (401.0), Anxiety (300.00), Hypothyroidism (244.9), Degenerative Disc Disease - Lumbar (722.52), Other and unspecified hyperlipidemia (272.4), burning tongue sx- gave samples nexium - if not better- she is seeing scottie- ask his opinion, HYPONATREMIA, NOS (276.1), screen [facility] Annotation/Addendum On: 11-Jun-2009 12:19 Encounter Diagnosis: Eustachian tube dysfunction (381.81), Hearing loss, unspecified (389.9) End: 11-Jun-2009 12:22 [facility] Office Visit On: 07-Jun-2009 15:09 Encounter Diagnosis: Cerumen impaction (380.4), Eustachian tube dysfunction (381.81) End: 07-Jun-2009 16:03 [facility] Office Visit On: 05-Jun-2009 15:55 Encounter Reason: Earache - The onset of the pain has been acute and has been occurring in a persistent pattern for 2 weeks. The course has been constant. The pain is described as a mild pressure (left ear). The pain is End: 05-Jun-2009 16:17 described as being located in the inner ear. The pain is felt in the left ear. The symptoms have been associated with decreased hearing and inability to 'pop' ear drum, while the symptoms have not been associated with chills ,fever ,non-purulent discharge from ear ,protrusion of ear ,purulent discharge from ear ,sinus problems or sore throat. Encounter Diagnosis: Eustachian tube dysfunction (381.81), Cerumen impaction (380.4), Need for prophylactic vaccination and inoculation against influenza (V04.81) [facility] Office Visit On: 25-Dec-2008 16:06 Encounter Reason: Follow up for chronic medical issues - The patient feels well with no complaints ,has good energy level and is sleeping well. Patient has been compliant with instructions. Current medication use: no xander End: 25-Dec-2008 16:33 e effects and compliant with dosing regimen. Patient sleeps 8 hours per night. Nutrition: balanced diet ,supplemental vitamins and low salt diet. The medical issues the patient is following up for inclu de All identified problems below ,high blood pressure ,high cholesterol ,hypothyroid and other (allergic rhinitis, ddd, diverticulitis, hyponatremia, anxiety). weight :. Note for Follow up for chronic medical issues: wt down 5 pounds really trying and doing alot of exercise-- bp looks -- boil gone and no palpitattions for a long time-- knee is pretty good- anxiety is good and she is off the meds and doing well and labs looked good--- knees heave beeen good even with the exercise-- , [ADDITIONAL REASON] Ear pain - The onset of the pain has been gradual and has been occurring in an i ntermittent pattern for months. The course has been recurrent. The pain is described as a mild dull aching. The pain is described as being located in the inner ear. The pain is felt in the left ear. The symptoms have been associated with decreased hearing, while the symptoms have not been associated with chills ,fever ,non-purulent discharge from ear ,purulent discharge from ear ,sinus problems or sor e throat. Note for Ear pain: allergies come and go- tylenol makes go away- doing some flying Encounter Diagnosis: Hypothyroidism (244.9), Hypertension (401.0), Anxiety (300.00), Other and unspecified hyperlipidemia (272.4), Symptom, Palpitations (785.1), Allergic Rhinitis(477.9), Eustachian tube dysfunction (381.81) [facility] Office Visit On: 20-Nov-2008 16:13 Encounter Reason: Follow up acute care visit - The patient feeling better since last seen. Patient has been compliant with instructions. Current medication use: no side effects and compliant with dosing regimen. Patient End: 20-Nov-2008 16:31 sleeps 8 hours per night. Nutrition: balanced diet. The medical issues the patient is following up for include other (lesion/cyst on right shoulder). Encounter Diagnosis: Lesion-Unknown behavior (238.2) [facility] Office Visit On: 13-Nov-2008 16:15 Encounter Diagnosis: Lesion-Unknown behavior (238.2) End: 13-Nov-2008 17:46 [facility] Office Visit On: 13-Sep-2008 16:19 Encounter Reason: Well Women Exam - The patient feels well with no complaints ,has good energy level and is sleeping well. Pap smear: date of last pap: (02/03). Contraceptive history: The patient is not using any method o End: 13-Sep-2008 22:32 f contraception at this time. Patient exercises 3 - 4 times per week. The patient's libido is normal. The patient reports that she does not perform monthly breast self exam. Calcium intake includes 1200 mg with Vit D daily supplement and 1 serving milk daily. The patient denies the use of oral contraceptives or hormone replacement therapy. , [ADDITIONAL REASON] Follow up, Diagnostic Procedure Results - Diagnostic tests include mammography ( and bone dexa). Date: (09/07/08). Encounter Diagnosis: Well Woman Exam (V72.31) (Pap,Mammo,Routine Female) (Renamed from Well Woman V72.31 (p,m)) [facility] Office Visit On: 12-Sep-2008 15:57 Encounter Diagnosis: Symptom, Palpitations (785.1) End: 13-Sep-2008 8:36 [facility] Office Visit On: 16-Aug-2008 15:29 Encounter Reason: Follow up for chronic medical issues - The patient feels well with minor complaints (palpitations) ,has good energy level and is sleeping well. Patient has been compliant with instructions. Current medi End: 16-Aug-2008 23:28 cation use: no side effects and compliant with dosing regimen. Patient sleeps 8 hours per night. Nutrition: balanced diet ,supplemental vitamins and low salt diet. The medical issues the patient is foll owing up for include All identified problems below ,high blood pressure ,high cholesterol ,hypothyroid and other (ddd, anxiety, allergic rhinitis). weight :. Note for Follow up for chronic medical issu es: she had pt and is 90 percent better- occ stiffness - reviewed mri in detail- he thought she could ski with a brace-- she is going to try to keep up on the exerciseto keep knee strong, [ADDITIONAL REASON] Follow up, Diagnostic Procedure Results - Diagnostic tests include MRI (knee). Date: (08/09/08). , [ADDITIONAL REASON] Palpitations - The onset of the palpitations has been gradual and they have been occurring in an intermittent pattern for 2 months. The course has been recurrent. The palpitations are characterized as increased awareness of heart beats. There have been no precipitating factors. The symptoms have no aggravating factors. The symptoms have no relieving factors. The symptoms have been associated with use of antidepressants, while the symptoms have not been associated with chest pain ,chills ,fever ,history of angina ,history of CHF ,history of NM ,smoking ,syncope or use of decongestants. Note for Palpitations: bp is great had palpitations couple different times in last 2 mos- fe lt some palps- notices when relaxing at night-- not much in the last weeek- not alot during the day-- no dizzy or sob - or chest pain- some caffeine -- no decongestants Encounter Diagnosis: Hypertension (401.0), Anxiety (300.00), Hypothyroidism (244.9), Other and unspecified hyperlipidemia (272.4), meniscal tear and chondromalacia patella, Symptom, Palpitations (785.1), postmenopausal without estogen [facility] Office Visit On: 11-Jul-2008 16:10 Encounter Reason: Knee Pain - The onset of the knee pain has been sudden following no specific incident and has been occurring in a persistent pattern for 1 months. The course has been gradually worsening. The knee pain End: 11-Jul-2008 21:42 is mild. The knee pain is characterized as a sharp stabbing. The knee pain is described as being located in the anterior knee and medial knee. The knee pain is aggravated by physical activity and kneeli ng. The knee pain is relieved by ice and medication (aleve). The symptoms have been associated with muscle swelling ,medial pain ,painful ROM ,decreased ROM ,warmth ,burning sensation and difficulty goi ng up and down stairs, while the symptoms have not been associated with giving way ,instability ,fever ,chills or difficulty arising from chair. Note for Knee Pain: no trauma- usually medial aspect--n o pain with not walking- kneeling makes it worse and steps-- it has been swollen-- she is not taking anything otc now but took aleve-- did help liitleEncounter Diagnosis: Knee pain (719.46) [facility] Office Visit On: 20-Jun-2008 15:51 Encounter Reason: Knee Pain - The onset of the knee pain has been sudden and has been occurring in an intermittent pattern for 1 months. The course has been recurrent. The knee pain is moderate. The knee pain is characte End: 20-Jun-2008 16:01 rized as a dull aching. The knee pain is described as being located in the entire knee (right). The knee pain is aggravated by physical activity. The knee pain is relieved by rest. The symptoms have bee n associated with painful ROM and decreased ROM, while the symptoms have not been associated with giving way ,catching or locking. There were no previous diagnostic tests. There were no previous evaluat ions. There has been no previous physical therapy. There has been no previous surgeries. There is no use of assistive devices. Previous medications include Tylenol. Encounter Diagnosis: Knee pain (719.46) [facility] Nurse Visit On: 16-Jun-2008 15:58 Encounter Diagnosis: Need for prophylactic vaccination and inoculation against influenza (V04.81) End: 16-Jun-2008 15:59 [facility] Office Visit On: 22-May-2008 16:27 Encounter Reason: Follow up for chronic medical issues - The patient feels well with minor complaints (look at skin lesion ) ,has good energy level and is sleeping well. Patient has been compliant with instructions. Curr End: 22-May-2008 22:52 ent medication use: no side effects and compliant with dosing regimen. Patient sleeps 9 hours per night. Nutrition: balanced diet ,supplemental vitamins and low salt diet. The medical issues the patient is following up for include All identified problems below ,high blood pressure ,high cholesterol ,hypothyroid and other (allergic rhinitis, anxiety, anemia, ddd). weight :. 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 It has been increasing in size (multiple?). The skin lesion is characterized as red (dots) and fla t. The skin lesion is located on the face (forehead). There has been no associated chills ,fatigue ,fever ,itching ,loss of sensation or pain. Encounter Diagnosis: Hypertension (401.0), Hypothyroidism (244.9), thumb pain, Other and unspecified hyperlipidemia (272.4) [facility] Office Visit On: 18-Jan-2008 16:12 Encounter Reason: Follow up, Laboratory Test Results - Date: (01/08/08). , [ADDITIONAL REASON] Sore throat - The onset of the sore throat has been sudden and has been occurrin End: 18-Jan-2008 21:37 g in a persistent pattern for 1 days. The course has been unchanged. The symptoms have been associated with difficulty in swallowing ,post-nasal drip ,runny nose and swelling of neck glands, while the s ymptoms have not been associated with change in voice ,chills ,cough ,ear pain ,fever ,purulent sputum or sinus pain. , [ADDITIONAL REASON] Hand Pain - The onset of the hand pain has been sudden following an incident not at work (skiing accident) and has been occurring in an intermittent pattern for 4 months. The course has been gradually improving. The hand pain is mild. The hand pain is characterized as a sharp stabb ing (and dull ache). The hand pain is described as being located in the thumb (left). The hand pain is aggravated by physical activity. There have been no relieving factors. The symptoms have been assoc iated with muscle stiffness ,muscle swelling ,painful ROM ,decreased ROM ,difficulty opening doors ,difficulty turning keys in the ignition and difficulty with grasping, while the symptoms have not been associated with warmth ,burning sensation ,fever ,difficulty with shaking hands or difficulty with fine motor skills. Note for Hand Pain: pain is not gone- but better- is mild-- and hurts to pull up pants-- she bent it back on the ski accidnet , [ADDITIONAL REASON] Follow up for chronic medical issues - The patient feels well with minor complaints (s.t. and sore thumb) ,has good energy level and is sleeping well. Patient has been compliant wit h instructions. Current medication use: no side effects and compliant with dosing regimen. Nutrition: balanced diet ,supplemental vitamins and low salt diet. The medical issues the patient is following up for include All identified problems below ,high blood pressure ,high cholesterol ,hypothyroid and other (hyponatremia, ddd, anxiety, anemia, allergic rhinitis). weight :. 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 Patient has been compliant with instructions. Current medi End: 27-Sep-2007 22:02 cation use: no side effects and compliant with dosing regimen. Nutrition: balanced diet ,supplemental vitamins and low salt diet. The medical issues the patient is following up for include All identifie d problems below ,high blood pressure ,high cholesterol ,hypothyroid and other (pancreatitis, ddd, anemia, allergic rhinitis). weight :. Note for Follow up for chronic medical issues: abdominal issues - had the colonoscopy and has followup with him next week- she has had no more pain mood is good- , [ADDITIONAL REASON] Follow up, Laboratory Test Results - Date: (09/18/07). , [ADDITIONAL REASON] Lumps - The onset of the lumps has been sudden and has been occurring in a persistent pattern for 2 months. The course has been constant. The lumps are described as moderate. Note f or Lumps: on the right side abdomin she has had this for months-- nontender and not changing Encounter Diagnosis: Hypertension (401.0), Hypothyroidism (244.9), HYPONATREMIA, NOS (276.1), PANCREATITIS, NOS (577.0), Other and unspecified hyperlipidemia (272.4), Degenerative Disc Disease - Lumbar (722.52) [facility] Office Visit On: 29-Jul-2007 10:00 Encounter Reason: Follow up hospital - Reason for ER visit: abdominal pain (pancreatitis). The patient feels well with minor complaints (fatigued) ,has decreased energy level and is sleeping well. Patient has been compli End: 29-Jul-2007 22:02 ant with instructions. Current medication use: no side effects and compliant with dosing regimen. Note for Follow up hospital: initial diagnosis was pancreatitis and diverticulitis-- no abdominal pain - but bloating - bowels are soft-- and regular -- has fatigue -- not back at work-- is improving -- since mon-- off the antiobitoics--- respiratory sx gone-- -- alot of anxiety with all of this -- us of gb no stones and she drinks no etoh-- she is having scope and followup with Doni in 2 weeksEncounter Diagnosis: PANCREATITIS, NOS (577.0), (Renamed from Anxiety (300.00)), Diverticulitis of colon (without mention of hemorrhage) (562.11), Anemia(285.9), HYPONATREMIA, NOS (276.1) [facility] Office Visit On: 19-Jul-2007 16:35 Encounter Reason: Nasal congestion - The onset of the nasal congestion has been gradual and has been occurring in an intermittent pattern for 10 days. The course has been recurrent. The nasal congestion is described as moderate. , End: 19-Jul-2007 22:01 [ADDITIONAL REASON] Abdominal pain - The onset of the pain has been sudden and has been occurring in an intermittent pattern for 1 days. The course has been increasing. The pain is described as a moder ate sharp pain ,crampy (tightness) ,dull ache and pressure sensation. The pain is described as being located in the upper abdomen. The pain does not radiate. The symptoms have no aggravating factors. Th e symptoms have no relieving factors. The symptoms have been associated with diarrhea and nausea, while the symptoms have not been associated with bloating ,bloody stools ,chest pain ,constipation ,dark urine ,dysuria ,fever ,heartburn or vomiting. Encounter Diagnosis: Epigastric pain (789.06), Acute sinusitis (461.9) [facility] Office Visit On: 28-Jun-2007 8:12 Encounter Diagnosis: SYMPTOMS INVOLVING URINARY SYSTEM; DYSURIA (788.1) End: 29-Jun-2007 8:18 [facility] Office Visit On: 21-Jun-2007 16:52 Encounter Reason: Follow up for chronic medical issues - The patient feels well with minor complaints ,has good energy level and is sleeping well. Patient has been compliant with instructions. Current medication use: no End: 21-Jun-2007 17:44 side effects ,compliant with dosing regimen and considered effective by patient. Patient sleeps 8 hours per night. Impact of disease: emotional impact-mild. Nutrition: balanced diet. The medical issues the patient is following up for include depression (anxiety ) ,high blood pressure ,hypothyroid and other (DDD). Note for Follow up for chronic medical issues: doing alot better anxiety platt - feeling back to herself-- and functioning well without side effects - bp is good -- she doesnt drink enough fluids- that fixed the renal insuff last time and she admits to not drinking -- family is doing well Encounter Diagnosis: Hypothyroidism (244.9), Hypertension (401.0), Anxiety (300.00), Other and unspecified hyperlipidemia (272.4), minor renal insuff- she needs to push more fluids- get followup bmp in 8-12 weeks, Need for prophylactic vaccination and inoculation against influenza (V04.81) [facility] Office Visit On: 04-Jun-2007 9:36 Encounter Reason: Anxiety - The onset of the anxiety has been sudden and has been occurring in an intermittent pattern for 8 years (I had it 8 year ago and I had to take time off. Now I felt it coming on in Mar and I too End: 04-Jun-2007 10:02 k care of it but yesterday and today has been really bad. 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 And I just need to take time for my self ). The course has been recurrent. The anxiety is characterized as apprehension (need to get the 5th grader to score high on there test.). There are no specific phobias. Precipitating factors include specific circumstanc es (school. work work work. I love it and what I do.). The symptoms have been associated with agitation (some), while the symptoms have not been associated with breathlessness ,dizziness or dry mouth. N ote for Anxiety: My legs get tingling feeling and I am supper tenseEncounter Diagnosis: Anxiety (300.00) [facility] Office Visit On: 23-Feb-2007 10:58 Encounter Reason: Follow up for chronic medical issues - The patient feels well with minor complaints (sciatica down right buttock and leg) ,has good energy level and is sleeping well. Patient has been compliant with ins End: 23-Feb-2007 11:51 tructions. Current medication use: no side effects and compliant with dosing regimen. Nutrition: balanced diet ,supplemental vitamins and low salt diet. The medical issues the patient is following up fo r include All identified problems below ,high blood pressure ,high cholesterol ,hypothyroid and other (anxiety, allergic rhinitis). weight :. Note for Follow up for chronic medical issues: urine sx gone-- bp up a tad but variable- , [ADDITIONAL REASON] Leg pain - The leg pain began gradually over time and has been occurring for 1 years. The symptoms have been occurring in an intermittent pattern. The symptoms are described as a bu rning sensation ,dull ache ,piercing pain ,sharp, stabbing pain and shooting pain and are mild to moderate in severity. The symptoms occur at night (and first thing in am). There is involvement of the r ight calf and right thigh (buttock, sciatica). There are no precipitating factors. There are no aggravating factors. Relief is provided by other (moving). Note for Leg pain: gets better in 10 min afte r walking-- she is not feeling that it is significant- saw Jose Alfredo and told ddd- - no bowel or bladder issues-- going to [facility] on thursday Encounter Diagnosis: Hypertension (401.0), recurrent UTI, Hypothyroidism (244.9), Other and unspecified hyperlipidemia (272.4), Degenerative Disc Disease - Lumbar (722.52) [facility] Office Visit On: 03-Feb-2007 13:40 Encounter Diagnosis: SYMPTOMS INVOLVING URINARY SYSTEM; DYSURIA (788.1) End: 03-Feb-2007 14:05 [facility] Office Visit On: 13-Oct-2006 10:28 Encounter Reason: Follow up for chronic medical issues - The patient feels well with minor complaints (siatica) ,has good energy level and is sleeping well. Patient has been compliant with instructions. Current medicatio End: 13-Oct-2006 11:15 n use: no side effects and compliant with dosing regimen. Patient sleeps 8 hours per night. Nutrition: balanced diet ,supplemental vitamins and low salt diet. The medical issues the patient is following up for include high blood pressure ,hypothyroid and other (anxiety and siatica). weight :. , [ADDITIONAL REASON] Follow up, Laboratory Test Results - Date: (09/26/06- on face sheet). Encounter Diagnosis: Hypothyroidism (244.9), Hypertension (401.0), Anxiety (300.00), Thoracic or lumbosacral neuritis or radiculitis, unspecified (724.4), minor renal insuff- she needs to push more fluids- get followup bmp in 8-12 weeks [facility] Office Visit On: 06-Jul-2006 19:48 Encounter Diagnosis: Need for prophylactic vaccination and inoculation against influenza (V04.81) End: 06-Jul-2006 19:49 [facility] Office Visit On: 08-Jun-2006 17:20 Encounter Reason: Follow up for chronic medical issues - The patient feels well with no complaints ,has good energy level and is sleeping well. Patient has been compliant with instructions. Current medication use: no xander End: 08-Jun-2006 18:06 e effects. Patient sleeps 8 hours per night. Nutrition: balanced diet ,supplemental vitamins and low salt diet. The medical issues the patient is following up for include high blood pressure ,hypothyroi d and other (anxiety). weight :. Note for Follow up for chronic medical issues: saw chiropractor for back issues and has helped tremendously- got rid of sciatic nerve pain and was doing extension exer cises and that really has helped as well- never did fill zoloft and doesnt feel need itEncounter Diagnosis: Hypertension (401.0), Hypothyroidism (244.9), Other and unspecified hyperlipidemia (272.4), Thoracic or lumbosacral neuritis or radiculitis, unspecified (724.4) [facility] Historical Summary On: 03-Jun-2006 8:04 [facility] End: 03-Jun-2006 8:09 Payers MedicareAA/Alphonse Short; a guarantor
--- OUTSIDE RECORDS SUMMARY | 2018-11-21 02:15 | XMS RPT_ITS | Continuity of Care Document ---
:1950 Author Organization [facility] Address [address] [facility] [address] [place] [address] Phone Care Team Providers Name Role Phone Windy Mayorga DO Unavailable Dr. 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, did not eat Status: Active Knee [...] 30 {Capsule} Refills: 0 Ordered:09-Sep-2018 Renetta Hough CLAYTON Start : 17-Aug-2018 Active Atenolol 25 MG [...] Quantity: 10 {Tablet} Refills: 0 Ordered:08-Jan-2017 THALIA Pereira Start : 22-Aug-2016 End : 08-Jan-2017 Inactive DEBROX, 6.5% (Otic Solution) 1 for 0 days Refills: 0 Ordered:07-Jun-2009 Jennifer Coronado Start : 07-Jun-2009 End : 25-Jun-2009 Inactive DURICEF, 1GM (Oral Tablet) 1 1/2 (one and a half) Tablet bid for 7 days Quantity: 14 {Tablet} Refills: 0 Ordered:13-Nov-2008 Chucky GROVE Liat Start : 13-Nov-2008 End : 20-Nov-2008 Inactive LEVAQUIN, 500MG (Oral Tablet) 1 Tablet daily for 10 days Quantity: 10 {Tablet} Refills: 0 Ordered:08-Mar-2015 Sharyn Mayorga DO, DO, Kathleen Start : 08-Mar-2015 End [...] {Tablet} Refills: 0 Ordered:18-Mar-2018 Latricia Leblanc LPN L Start : 08-Mar-2018 End : 18-Mar-2018 Inactive [...] Quantity: 10 {Capsule} Refills: 0 Ordered:14-Sep-2017 Renetta Hoguh LPN Start : 14-Sep-2017 End : 19-Sep-2017 [...] 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] 5 Days #10 10/10/17 [History Confirmed 10/10/17] [facility] Medical History Knee pain (Acute) Thyroid disease [...] the above. This note was generated with flatev dictation software. It may contain incorrect words, spell [...] Limited Unilateral Result: Comments: See Note; NOTES: [facility] Imaging Services [address] [facility] [address] [address] Breast Limited Unilateral MR#: [id number] Acct: [id number] Name: JULIET SHORT Rep #: [id number] : 1950 F 67 From: Cruzito Khan MD PCP: Windy Mayorga DO Status: [facility] CLI Study: Breast Limited Unilateral Date of Exam: 09/07/17 Exam# [id number] Ordering Dr: Windy Mayorga DO STUDY: ULTRASOUND [...] Cruzito Khan MD at 15:14 EST Tel [phone], Service support , CC: Windy Mayorga DO Installer Metal Flooring: Signed 03-Sep-2017 Dexa Bone Density Study (HP) Result: Comments: See Note; NOTES: [facility] Imaging Services [address] [place] [address] Dexa Bone Density Study (HP) MR#: [id number] Acct: [id number] Name: JULIET SHORT Rep #: [id number] : 1950 F 67 From: Cruzito Khan MD PCP: Windy Mayorga DO Status: [facility] Study: Dexa Bone Density Study (HP) Date of Exam: 09/08/17 Exam# [id number] Ordering Dr: Delfina Mayorga DO STUDY: DUAL [...] Cruzito Khan MD at 8:30 EST Tel [phone], Service support , CC: Windy Mayorga DO Installer [employer] Flooring: Signed 03-Sep-2017 SCREENING MAMM (CAD), BILAT Result: Comments: See Note; NOTES: [facility] Imaging Services [address] [place] [address] SCREENING MAMM (CAD), BILAT MR#: [id number] Acct: [id number] Name: JULIET SHORT Rep #: [id number] : 1950 F 67 From: Cruzito Khan MD PCP: Windy Mayorga DO Status: [facility] CLI Study: SCREENING MAMM (CAD), BILAT Date of Exam: 09/03/17 Exam# [id number] Ordering Dr: Windy Mayorga DO MAMMOGRAPHY - [...] delay biopsy of a clinically suspicious abnormality. [id number] Electronically Signed: Cruzito Khan MD at 14:17 EST Tel [phone], Service support , CC: Windy Mayorga DO Installer Metal Flooring: Signed 30-Mar-2017 Inital Evaluation (1) - PT Result: Comments: See Note; NOTES: [facility] Physical Therapy Health[address] [place] [address] Fax REHABILITATION SERVICES INITIAL EVALUATION MR#: [id number] Acct: [id number] Name: JULIET SHORT Rep #: [id number] : 1950 67 From: Kimberley Clemente DPT Referring DrDimple: Cyndy Ann DPM Status: REG RCR Insurance: MEDICARE P ART A B AARP Patient's Visit Information JULIET SHORT is a 67 year old F referred to Physical Therapy by Cyndy Ann DPM with a diagnosis of Plantar Fascitis. Date of Evaluation: 03/30/17 Anne sical Therapist: Kimberley Clemente - Visit Plan Frequency: 2x /Week Duration: 2 Weeks Plan: Dry Needling - Subjective Subjective: Patient reports plantar fascitis on the right- has had it before and it w ent away on its own starting 3 years ago- stretches and strengthening with good shoes. This flare started in Oct when she went to [facility]- has been fighting with it since. Its affecting her lifestyle ann hilliard is a walker and goer. Pain is [...] and is much better. 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 For Medicare and [facility] plans, please review the plan of care and approve it. It will need to be FAXED BACK to us at [phone] for Medicare purposes. Please let me know if there are questions or concerns regar ding this plan of care. Physician Signature: Date: <Electronically signed by Kimberley Clemente DPT> 03/30/17 1745 CC: Tamika Ann DPM; Windy Mayorga DO ELR Signed For Medicare only, by signing this I certify the plan of care. Physicians Signature Date 26-Nov-2016 PT D/C Summary (1) Result: Comments: See Note; NOTES: [facility] Physical Therapy Health[address] [place] [address] Fax REHABILITATION SERVICES LAUREN MURRAY SUMMARY MR#: [id number] Acct: [id number] Name: JULIET SHORT Rep #: [id number] [...] please feel free to call me at [phone]. Thank you for the referral of this patient. Sincerely, Sunshine Arechiga Cro ss <Electronically signed by Sunshine Green PT, Cert. MDT> 11/26/16 1422 CC: Windy Mayorga DO TIFFANY Signed 29-Sep-2016 Inital Evaluation (1) - PT Result: Comments: See Note; NOTES: [facility] Physical Therapy [facility]point [facility] [facility] [place] [address] Fax REHABILITATION SERVICES INITIAL EVALUATION MR#: [id number] Acct: [id number] Name: JULIET SHORT Rep #: [id number] : 1950 66 From: Sunshine Green PT, Cert. MDT Referring Dr.: Windy Mayorga DO Status: REG RCR Insurance: [place] PART A B AAR Patient's Visit Information JULIET SHORT is a [...] 2X'S A WEEK. 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 [employer]. HELP ING CARE FOR 11 MONTH OLD [...] to evaluate your patient. For Medicare and [facility] plans, please review the plan of care and approve it. It will need to be FAXED BACK to us at [phone] for Medicare purposes. Please let me know if there are questions or concerns regard ing this plan of care. Physician Signature: Date: <Electronically signed by Sunshine Green PT Cert. MDT> 09/29/16 0957 C C: Windy Mayorga DO TIFFANY Signed For Medicare only, by signing this I certify the plan of care. Physicians Signature Date 26-Jun-2016 Bilat Scrn Digital AND CAD Result: Comments: See Note; NOTES: [facility] Imaging Services [address] [place] [address] Verdana 4d Bilat Scrn Digital AND CAD MR#: [id number] Acct: [id number] Name: JULIET SHORT Rep #: [id number] : 1950 F 66 From: Cruzito Khan MD PCP: Windy Mayorga DO Status: REG CLI Study: Bilat Scrn Digital AND CAD Date of Exam: 06/26/16 Exam# [id number] Ordering Dr: Windy Mayorga DO MAMMOGRAPHY - [...] delay biopsy of a clinically suspicious abnormality. [id number] Electronically Signed: Cruzito Khan MD at 14:03 EDT Tel [phone], Service support [phone], CC: Windy Mayorga DO [employer] Flooring: Signed 26-May-2016 Chest PA and Lateral Result: Comments: See Note; NOTES: [facility] Imaging Services [address] [place] [address] Verdana 4d Chest PA and Lateral MR#: [id number] Acct: [id number] Name: JULIET SHORT Rep #: [id number] : 1950 F 66 From: Samuel Cutler MD PCP: Windy Mayorga DO Status: REG CLI Study: Chest PA and Lateral Date of Exam: 05/26/16 Exam# [id number] Ordering Dr: Gatito Laurent MD STUDY: X-RAY [...] MD at 0:00 EDT , Service support [phone], CC: Windy Mayorga DO; Gatito Laurent MD Installer Metal Flooring: Signed 03-Dec-2015 Chest PA and Lateral Result: Comments: See Note; NOTES: [facility] Imaging Services [address] [place] [address] Verdana 4d Chest PA and Lateral MR#: [id number] Acct: [id number] Name: JULIET SHORT Rep #: [id number] : 1950 F 65 From: Rush Arauz MD PCP: Raya Viera DO Status: REG CLI Study: Chest PA and Lateral Date of Exam: 12/03/15 Exam# [id number] Ordering Dr: Wyatt Viera DO STUDY: X-RAY [...] at 6:54 EDT Tel , Service support [phone], RAD/Chest PA and Lateral IMPRESSION: No acute cardiopulmonary disease is seen, although I suspect some inters titial lung disease or mild fibrotic changes as could be seen with parenchymal phase of sarcoidosis, interval regression of the hilar prominence or adenopathy previously demonstrated. Electronically Signed: Donnie Arauz MD at 6:54 EDT Tel , Service support [phone], CC: Raya Viera DO Installer Metal Flooring: Signed 03-Dec-2015 Spirometry (18550) Comments: good effort and curve normal- alot of coughing Result: 27-Apr-2015 Bilat Scrn Digital AND CAD Result: Comments: See Note; NOTES: [facility] Imaging Services [address] [place] [address] Breast Imaging Report MR#: [id number] Acct: [id number] Name: JULIET SHORT Rep #: [id number] : 1950 F 65 From: Cruzito Khan MD PCP: Raya Viera DO Status: REG CLI Study: Bilat Scrn Digital AND CAD Date of Exam: 04/27/15 Exam# [id number] Ordering Dr: Raya Viera DO MAMMOGRAPHY - [...] these results will be sent to the [facility] ient by the facility within 30 days. Approximately 10% of breast cancers are not detected by mammography. A normal mammogram should not delay biopsy of a clinically suspicious abnormality. Electro nically Signed: Cruzito Khan MD at 8:58 EDT Tel [phone], Service support [phone], CC: Raya Viera DO Installer [employer] Flooring: Signed 05-Oct-2014 Sacrum-Coccyx min 2 Views Result: Comments: See Note; NOTES: [facility] Imaging Services [address] [facility] [place] [address] Radiology Report MR#: [id number] Acct: [id number] Name: JULIET SHORT Rep #: [id number] : 1950 F 64 From: Mahendra Bedoya DO PCP: Raya Viera DO Status: REG CLI Study: Sacrum-Coccyx min 2 Views Date of Exam: 10/05/14 Exam# [id number] Ordering Dr: Raya Viera DO STUDY: X-RAY [...] Mahendra Bedoya DO at 17:00 EST Tel [phone], Service support [phone], CC: Raya Viera DO Installer Metal Flooring: Signed 26-Apr-2014 Bilat [place] Digital & CAD Result: Comments: See Note; NOTES: [facility] Imaging Services [address] [place] [address] Breast Imaging Report MR#: [id number] Acct: [id number] Name: JULIET SHORT Rep #: [id number] : 1950 F 64 From: Cruzito Khan MD PCP: Raya Viera DO Status: REG CLI Exam# [id number] Ordering Dr: Raya Viera DO MAMMOGRAPHY - [...] Cruzito Khan MD at 9:13 EDT Tel [phone], Service support [phone], CC: Raya Viera DO Installer Metal Flooring: Signed 26-Oct-2013 Knee 4 or More Views Result: Comments: See Note; NOTES: [facility] Imaging Services [address] [place] [address] Radiology Report MR#: [id number] Acct: [id number] Name: JULIET SHORT Rep #: [id number] : 1950 F 63 From: Cruzito Khan MD PCP: Raya Viera DO Status: REG CLI Study: Knee 4 or More Views Date of Exam: 10/26/13 Exam# [id number] Ordering Dr: Windy Mayorga DO STUDY : [...] M.D. at 16:16 EST , Service support [phone], CC: Raya Viera DO; Windy Mayorga DO Installer Metal Flooring: Signed Immunization Name Dates Details Influenza (3 years and up) on: 06-Jul-2006 Influenza (3 years and up) on: 21-Jun-2007 Comments: Lot #:Expiration date:Amount given:Route: IMSite given:left deltoidGiven by: iveth Lot # [id number] exp 02-28-08 Influenza (3 years and up) on: 16-Jun-2008 Comments: 0.5cc given im lt olga H.Horn Influenza (3 years and up) on: 05-Jun-2009 Pneumococcal conjugate vaccine, 13 valent, IM on: 2014 Comments: Prevnar Family History Unknown Family Member Name Dates Details Brother 1 Comments: In good health Status: Active Father Comments: [place], Prosatate [place], HTN Status: Active Mother Comments: [...] smoker Vital Signs Date Test Result Details :40 Pulse 63 /min Comments: Pattern: Regular Respiration [...] kg/m2 Body Surface Area Calculated 1.85 m2 :11 Temperature 99.9 f Pulse 81 /min Comments: [...] kg/m2 Body Surface Area Calculated 1.87 m2 50-Bjq-443280:13 Temperature 97.8 f Pulse 84 /min Comments: [...] Area Calculated 1.91 m2 :24 Comments: hearing wnlvgasper Horowitz Pulse 68 /min Comments: Pattern: Regular [...] Calculated 1.89 m2 Head Circumference 0.00 cm :00 Temperature 97.8 f Comments: Method: Oral Pulse [...] 0.00 cm Results Date Description Value Details 03-Bss-735099:59 URINE MADAY CULTURE-IDENTIFICATN Comments: PATIENT NOT FASTINGPERFORMED BY: ShareMeme Bwregq2233 [facility] [id number] Information: SRC:UC (51240) Result 1 MUG (Normal) Comments: Mixed urogenital Colonies/mL Urine Culture,Comprehensive Final report (Normal) 72-Ifx-468186:15 TSH (47569) Comments: PATIENT NOT FASTINGPERFORMED BY: [facility]CoH[facility]ow[facility] HospitalXywkmo2639 [facility] [id number] TSH 1.790 {uIU/mL} (Normal) Range: 0.450-4.500 06-Uxd-778153:15 T4, FREE (THYROXINE) (58966) Comments: PATIENT NOT FASTINGPERFORMED BY: LabTony Ville 0917970 [facility] [id number] T4,Free(Direct) 1.07 ng/dL (Normal) Range: 0.82-1.77 76-Ooe-898404:15 T3, FREE (TRIDOTHYRONINE) (83979) Comments: PATIENT NOT FASTINGPERFORMED BY: ADITU SASCo Mhovei1678 [facility] [id number] Triiodothyronine (T3), Free 2.7 pg/mL (Normal) Range: 2.0-4.4 93-Iit-083176:15 Microscopic Examination Comments: PATIENT WAS FASTINGPERFORMED BY: [facility] Voxoof8823 [facility] [id number] Bacteria None seen (Normal) Mucus Threads Present (Normal) Epithelial Cells (non renal) 0-10 {/hpf} (Normal) Range: 0 - 10 RBC 0-2 {/hpf} (Normal) Range: 0 - 2 WBC 0-5 {/hpf} (Normal) Range: 0 - 5 31-Ruz-386490:11 URINE AMDAY CULTURE-FARIBA COL Comments: PATIENT NOT FASTINGPERFORMED BY: [employer] Gikutr0176 [facility] [id number] Information: SRC:UC COUNT (03985) Antimicrobial MIHEAD (Normal) Comments: S = Susceptible; [...] mL (Abnormal) Urine Final report Culture,Comprehensive (Abnormal) 84-Pkx-662008:07 Urinalysis, Office (25522) UA - LEUKOCYTE ESTERASE Small (Normal) UA - NITRITE Negative (Normal) URINE UROBILINGN FARIBA TIMED Normal mg/dL (Normal) UA - PROTEIN Negative mg/dL (Normal) UA - PH 6 (Abnormal) UA - BLOOD Negative (Normal) UA - SPECIFIC GRAVITY 1.015 (Normal) UA - KETONES Negative mg/dL (Normal) UA - BILIRUBIN Negative (Normal) UA - GLUCOSE Negative (Normal) 75-Zjb-106872:16 URINE MADAY CULTURE-IDENTIFICATN Comments: PERFORMED BY: [facility]CoH[facility] HospitalXnlffg7626 [facility] [id number] Information: SRC:UR (15286) Antimicrobial MIHEAD (Normal) Comments: S = Susceptible; [...] mL (Abnormal) Urine Final report Culture,Comprehensive (Abnormal) 33-Jce-390733:00 Urinalysis, Office (01568) UA - LEUKOCYTE ESTERASE Large (Normal) UA - NITRITE Positive (Normal) URINE UROBILINGN FARIBA TIMED 2 mg/dL (Normal) UA - PROTEIN Negative mg/dL (Normal) UA - PH 5.0 (Normal) UA - BLOOD Hemolyzed Small (Normal) UA - SPECIFIC GRAVITY 1.015 (Normal) UA - KETONES Negative mg/dL (Normal) UA - BILIRUBIN Negative (Normal) UA - GLUCOSE Negative (Normal) 31-Say-069706:12 Rapid Flu (26918 x 2) Influenza A Ag Positive A (Normal) Comments: had flu shot 50-Try-779992:15 CALCIFIDIOL (94753) VIT D 25 Comments: PATIENT WAS FASTINGPERFORMED BY: [facility] Kbiznu0717 [facility] [id number] Vitamin D, 25-Hydroxy 45.6 ng/mL (Normal) Range: 30.0-100.0 Comments: Vitamin D deficiency has been defined by the [place] ofMedicine and an Endocrine Society practice guideline as alevel of serum 25-OH vitamin D less than 20 ng/mL (1,2).The Endocrine Society went on to further define vitamin Dinsufficiency as a level between 21 and 29 ng/mL (2).1. IOM ([place] of Medicine). 2010. Dietary reference intakes for calcium and D. [place]: The National Academies Press.2. Dung MF, Ken NC, Diego ELMORE, et al. Evaluation, treatment, and prevention of vitamin D deficiency: an Endocrine Society clinical practice guideline. JCEM. 2010; 96(7):1911-30. 78-Uiy-450391:15 TSH (76904) Comments: PATIENT WAS FASTINGPERFORMED BY: ShareMeme Bmodch4073 [facility] [id number] TSH 4.170 {uIU/mL} (Normal) Range: 0.450-4.500 42-Wrq-831156:15 URINALYSIS, W/ MICRO (21742) Comments: PATIENT WAS FASTINGPERFORMED BY: Share[employer] [facility] [id number] Microscopic Examination See below: (Normal) Comments: Microscopic was indicated and was performed. Microscopic Examination MICRON (Normal) Comments: Microscopic follows if indicated. Nitrite, Urine Negative (Normal) Urobilinogen,Semi-Qn 0.2 mg/dL (Normal) Range: 0.2-1.0 Bilirubin Negative (Normal) Occult Blood Negative (Normal) Ketones Negative (Normal) Glucose Negative (Normal) Protein Negative (Normal) WBC Esterase Negative (Normal) Appearance Clear (Normal) Urine-Color Yellow (Normal) pH 7.0 (Normal) Range: 5.0-7.5 Specific [place] 1.020 (Normal) Range: 1.005-1.030 41-Dsr-634218:15 MICROALBUMIN: CREATININE RATIO Comments: PATIENT WAS FASTINGPERFORMED BY: [employer] Pizkhe2032 [facility] [id number] (16817) AND (61334) Alb/Creat Ratio 17.8 {mg/g_creat} (Normal) Range: 0.0-30.0 Albumin, Urine 25.9 ug/mL (Normal) Creatinine, Urine 145.6 mg/dL (Normal) 72-Vni-690238:15 METABOLIC PANEL, COMPREHENSIVE Comments: PATIENT WAS FASTINGPERFORMED BY: [employer] Jsdxea1079 [facility] [id number] (03884) ALT (SGPT) 15 [iU]/L (Normal) Range: 0-32 [...] 8-27 Glucose 83 mg/dL (Normal) Range: 65-99 67-Sez-798427:15 LIPID PANEL (99948) Comments: PATIENT WAS FASTINGPERFORMED BY: LabCo Mgdkna3349 [facility] [id number] LDL/HDL Ratio 1.3 {ratio} (Normal) Range: 0.0-3.2 Comments: LDL/HDL Ratio Men Women 1/2 Avg.Risk 1.0 1.5 Av g.Risk 3.6 3.2 2X Avg.Risk 6.2 5.0 3X Avg.Risk 8.0 6.1 LDL Cholesterol Calc 94 mg/dL (Normal) Range: 0-99 VLDL Cholesterol Gabriel 17 mg/dL (Normal) Range: 5-40 HDL Cholesterol 72 mg/dL (Normal) Triglycerides 86 mg/dL (Normal) Range: 0-149 Cholesterol, Total 183 mg/dL (Normal) Range: 100-199 79-Stu-771640:15 CBC W/AUTO DIFF WBC (58605) Comments: PATIENT WAS FASTINGPERFORMED BY: [facility]CoH[facility] HospitalXyeuyh5180 [facility] [id number] Immature Grans (Abs) 0.0 {x10E3/uL} (Normal) Range: [...] 3.77-5.28 WBC 6.8 {x10E3/uL} (Normal) Range: 3.4-10.8 32-Onp-95321:35 URINE MADAY CULTURE-IDENTIFICATN Comments: PATIENT NOT FASTINGPERFORMED BY: LabCoH[facility] Meadow[facility] HospitalFwfcqk6644 [facility] [id number] Information: SRC:JUDI (99296) Antimicrobial MIHEAD (Normal) Comments: S = Susceptible; [...] . (Abnormal) Urine Final report Culture,Comprehensive (Abnormal) 12-Bts-440477:51 Urinalysis, Office (20198) UA - LEUKOCYTE ESTERASE Moderate (Normal) UA - NITRITE Negative (Normal) URINE UROBILINGN FARIBA TIMED Normal mg/dL (Normal) UA - PROTEIN Negative mg/dL (Normal) UA - PH 6.5 (Normal) UA - BLOOD Negative (Normal) UA - SPECIFIC GRAVITY 1.005 (Normal) UA - KETONES Negative mg/dL (Normal) UA - BILIRUBIN Negative (Normal) UA - GLUCOSE Negative (Normal) 46-Bdo-75872:38 Microscopic Examination Comments: PATIENT WAS FASTINGPERFORMED BY: Cinnamon70 [facility] [id number] Bacteria None seen (Normal) Mucus Threads Present (Normal) Cast Type Hyaline casts (Normal) Casts Present {/lpf} (Abnormal) Epithelial Cells (non renal) 0-10 {/hpf} (Normal) Range: 0 - 10 RBC None seen {/hpf} (Normal) Range: 0 - 2 WBC 0-5 {/hpf} (Normal) Range: 0 - 5 :38 TSH (76629) Comments: PATIENT WAS FASTINGPERFORMED BY: kingsky6370 [place] Netfective TechnologyFrye [facility] [id number] TSH 2.710 {uIU/mL} (Normal) Range: 0.450-4.500 :38 T4, FREE (THYROXINE) (79338) Comments: PATIENT WAS FASTINGPERFORMED BY: [id number] [facility] [id number] T4,Free(Direct) 1.21 ng/dL (Normal) Range: 0.82-1.77 :38 T3, FREE (TRIDOTHYRONINE) (18850) Comments: PATIENT WAS FASTINGPERFORMED BY: ShareMemeHudson [facility] Meadowview HospitalDkjsmd5802 [facility] [id number] Triiodothyronine,Free,Serum 2.8 pg/mL (Normal) Range: 2.0-4.4 :38 URINALYSIS, W/ MICRO (94304) Comments: PATIENT WAS FASTINGPERFORMED BY: ADITU SASTrinity Health [facility] Hospital6370 [facility] [id number] Microscopic Examination See below: (Normal) Comments: Microscopic was indicated and was performed. Microscopic Examination MICRON (Normal) Comments: Microscopic follows if indicated. Nitrite, Urine Negative (Normal) Urobilinogen,Semi-Qn 0.2 mg/dL (Normal) Range: 0.2-1.0 Bilirubin Negative (Normal) Occult Blood Negative (Normal) Ketones Negative (Normal) Glucose Negative (Normal) Protein Negative (Normal) WBC Esterase Negative (Normal) Appearance Clear (Normal) Urine-Color Yellow (Normal) pH 7.0 (Normal) Range: 5.0-7.5 Specific [place] 1.017 (Normal) Range: 1.005-1.030 :38 MICROALBUMIN: CREATININE RATIO Comments: PATIENT WAS FASTINGPERFORMED BY: ShareMemeHudson County Meadowview HospitalIenifn7914 [facility] [id number] (47081) AND (83866) Microalb/Creat Ratio 5.3 {mg/g_creat} (Normal) Range: 0.0-30.0 Microalbumin, Urine 4.6 ug/mL (Normal) Creatinine, Urine 87.1 mg/dL (Normal) :38 METABOLIC PANEL, COMPREHENSIVE Comments: PATIENT WAS FASTINGPERFORMED BY: ADITU SASTrinity [facility] Hospital6370 [facility] [id number] (31215) ALT (SGPT) 14 [iU]/L (Normal) Range: 0-32 [...] Range: 65-99 :38 CBC W/AUTO DIFF WBC (79107) Comments: PATIENT WAS FASTINGPERFORMED BY: LabCoH[facility] County Meadowview HospitalDpuvyg4216 [facility] [id number] Immature Grans (Abs) 0.0 {x10E3/uL} (Normal) Range: [...] {x10E3/uL} (Normal) Range: 3.4-10.8 :38 LIPID PANEL (81292) Comments: PATIENT WAS FASTINGPERFORMED BY: Cinnamon70 PureBrandsCarolinas [facility] [id number] LDL/HDL Ratio 1.4 {ratio_units} (Normal) Range: 0.0-3.2 [...] 187 mg/dL (Normal) Range: 100-199 :38 CALCIFIDIOL (97022) VIT D 25 Comments: PATIENT WAS FASTINGPERFORMED BY: Cinnamon70 [facility] [id number] Vitamin D, 25-Hydroxy 49.1 ng/mL (Normal) Range: 30.0-100.0 Comments: Vitamin D deficiency has been defined by the [place] ofMedicine and an Endocrine Society practice guideline as alevel of serum 25-OH vitamin D less than 20 ng/mL (1,2).The Endocrine Society went on to further define vitamin Dinsufficiency as a level between 21 and 29 ng/mL (2).1. IOM ([place] of Medicine). 2010. Dietary reference intakes for calcium and D. [place]: The National Academies Press.2. Dung MF, Ken MCFARLAND, Diego ELMORE, et al. Evaluation, treatment, and prevention of vitamin D deficiency: an Endocrine Society clinical practice guideline. JCEM. 2010; 96(7):1911-30. :11 URINE MADAY CULTURE-IDENTIFICATN Comments: PATIENT NOT FASTINGPERFORMED BY: [address] [id number] Information: SRC:UC (64834) Result 1 MUG (Normal) Comments: Mixed urogenital flora25,000-50,000 colony forming units per mL Urine Final report (Normal) Culture,Comprehensive :26 Urinalysis, Office (40542) UA - LEUKOCYTE ESTERASE Small (Normal) UA - NITRITE Negative (Normal) URINE UROBILINGN FARIBA TIMED Normal mg/dL (Normal) UA - PROTEIN Negative mg/dL (Normal) UA - PH 7 (Normal) UA - BLOOD Negative (Normal) UA - SPECIFIC GRAVITY 1.025 (Normal) UA - KETONES Negative mg/dL (Normal) UA - BILIRUBIN Negative (Normal) UA - GLUCOSE Negative (Normal) :24 Fecal Occult Blood , Office (40171) Fecal Occult Blood , Office (Inhouse) negative (Normal) 85-Iom-04896:54 Fecal Occult Blood , Office (72983) Fecal Occult Blood , Office (Inhouse) positive (Normal) :24 Angiotensin Convert Enzyme Comments: [facility] (refer to report for specific site)refer to report for address and phone number [phone] 52 U/L (Normal) Range: 14-82 Comments: Performed at: [address] [id number] Director: John Paul Burrows PhD, Phone: [phone] :[phone] Erythrocyte Sed Rate Comments: [facility] Lzsnaundre[address]. [place], [place], [id number] SED RATE 9 mm/h (Normal) Range: 0-30 :06 Microscopic Examination Comments: PATIENT WAS FASTINGPERFORMED BY: ShareMeme Rhwlqy[address] [facility] [address] [facility] [place] [id number] Bacteria Moderate (Abnormal) Mucus Threads Present (Normal) Epithelial Cells (non renal) 0-10 {/hpf} (Normal) Range: 0 - 10 RBC 0-2 {/hpf} (Normal) Range: 0 - 2 WBC 11-30 {/hpf} (Abnormal) Range: 0 - 5 :06 CALCIFEDIOL (06393) Comments: PATIENT WAS FASTINGPERFORMED BY: ShareMeme Xjvnhg7693 [address] [facility] [place] [id number] Vitamin D, 25-Hydroxy 48.3 ng/mL (Normal) Range: 30.0-100.0 Comments: Vitamin D deficiency has been defined by the [place] ofOhio[facility] Hospitalcine and an Endocrine Society practice guideline as alevel of serum 25-OH vitamin D less than 20 ng/mL (1,2).The Endocrine Society went on to further define vitamin Dinsufficiency as a level between 21 and 29 ng/mL (2).1. IOM ([place] of Medicine). 2010. Dietary reference intakes for calcium and D. [place]: The National Academies Press.2. Dung MF, Ken NC, Diego ELMORE, et al. Evaluation, treatment, and prevention of vitamin D deficiency: an Endocrine Society clinical practice guideline. JCEM. 2010; 96(7):1911-30. :06 TSH (THYROID STIMULATING Comments: PATIENT WAS FASTINGPERFORMED BY: ShareMeme Rduzwb3715 [address] [facility] [place] [id number] HORMONE) (90307) TSH 3.690 {uIU/mL} (Normal) Range: 0.450-4.500 :06 URINALYSIS (66291) Comments: PATIENT WAS FASTINGPERFORMED BY: ShareMeme Bqpvhg2468 Hubbard RoadDublin [place] [id number] Microscopic Examination See below: (Normal) Comments: Microscopic was indicated and was performed. Nitrite, Urine Negative (Normal) Urobilinogen,Semi-Qn 0.2 mg/dL (Normal) Range: 0.2-1.0 Bilirubin Negative (Normal) Occult Blood Negative (Normal) Ketones Negative (Normal) Glucose Negative (Normal) Protein Negative (Normal) WBC Esterase 3+ (Abnormal) Appearance Clear (Normal) Urine-Color Yellow (Normal) pH 7.5 (Normal) Range: 5.0-7.5 Specific [place] 1.017 (Normal) Range: 1.005-1.030 :06 Lipid Panel (49857) Comments: PATIENT WAS FASTINGPERFORMED BY: CWR MobilityHudson County Meadowview HospitalXjkauj4420 [facility] [id number] LDL/HDL Ratio 1.5 {ratio_units} (Normal) Range: 0.0-3.2 [...] Panel, Comprehensive Comments: PATIENT WAS FASTINGPERFORMED BY: CWR MobilityHudson County Meadowview HospitalXuzhfo6311 [facility] [id number] (89288) ALT (SGPT) 13 [iU]/L (Normal) Range: 0-32 [...] Glucose, Serum 93 mg/dL (Normal) Range: 65-99 61-Dif-94756:06 CBC WITH MANUAL DIFF Comments: PATIENT WAS FASTINGPERFORMED BY: LabCoHudson County Meadowview HospitalZtotht0078 [facility] [id number] Information: [id number] (13035) Immature Grans (Abs) 0.0 {x10E3/uL} (Normal) Range: [...] CREATININE RATIO Comments: PATIENT WAS FASTINGPERFORMED BY: ShareMeme [employer] [facility] [id number] (37841) AND (97121) Microalb/Creat Ratio 4.3 {mg/g_creat} (Normal) Range: 0.0-30.0 Microalbumin, Urine 3.4 ug/mL (Normal) Creatinine, Urine 78.2 mg/dL (Normal) 5-Dox-806633:22 ANGTENSIN 1-CONVRT ENZYM Comments: PATIENT NOT FASTINGPERFORMED BY: ADITU SASSt. [facility] Hospital Rctzer3103 [facility] [id number] Information: [id number] (20993) ART 61 U/L (Normal) Range: 14-82 5-Vxp-815510:22 SED RATE ERYTHROCYTE (75679) Comments: PATIENT NOT FASTINGPERFORMED BY: ADITU SASTrinity Health [facility] Hospital6370 [facility] [id number] Sedimentation Rate-Westergren 7 mm/h (Normal) Range: 0-40 4-Clr-550057:22 C-REACTIVE PROTEIN (08992) Comments: PATIENT NOT FASTINGPERFORMED BY: ADITU SASSt. Luke'S Hospital Fodcqk8721 [facility] [id number]; non- emergent till apt C-Reactive Protein, Quant 2.2 mg/L (Normal) Range: 0.0-4.9 80-Yev-461358:13 Rapid Flu (42567 x 2) Influenza A Ag negative a/b (Normal) 4-Yxk-742843:37 URINE MADAY CULTURE (FARIBA Comments: PATIENT NOT FASTINGPERFORMED BY: JAMES [facility] Ynwlhf7711 [facility] [id number] Information: SRC:URC [id number] COL COUNT) (61753) Result 1 MUG (Normal) Comments: Mixed urogenital flora2,000 Colonies/mL Urine Culture,Comprehensive Final report (Normal) 8-Okh-413468:15 Urinalysis, Office (59971) UA - LEUKOCYTE ESTERASE Negative (Normal) UA - NITRITE Negative (Normal) URINE UROBILINGN FARIBA TIMED Normal mg/dL (Normal) UA - PROTEIN Negative mg/dL (Normal) UA - PH 6 (Abnormal) UA - BLOOD Negative (Normal) UA - SPECIFIC GRAVITY 1.020 (Normal) UA - KETONES Negative mg/dL (Normal) UA - BILIRUBIN Negative (Normal) UA - GLUCOSE Negative (Normal) 23-Wye-19474:42 Comprehensive Metabolic Profil Comments: [facility] Nupvpyimxl7824 [place], [place], [id number] GAP 4 (Abnormal) Range: 5-15 CO2 30.0 [...] 7-18 GLU 93 mg/dL (Normal) Range: 70-110 29-Byy-45437:42 Lipid Profile Comments: [facility] Mppvlmwwfo6807 Latasha [place], [place], [id number] ; non-emergent till apt VLDL 35 mg/dL [...] High Risk :42 Vitamin D,25 Hydroxy Comments: [facility] Ltiabwblbd6180 [address] TraceyDimple [place], [id number] Vitamin D 25-OH 31.7 ng/mL (Normal) Comments: Vitamin D 25(OH) Status Range Deficiency <20 ng/mL (50nmol/L) Insuffciency 20 - 30 ng/mL (50 - 75 nmol/L) Sufficiency 30 - 100 ng/mL (75 - 250 nmol/L) Toxicity >100 ng/mL (>250 nmol/L) 56-Cks-439588:26 Pap IG (Image Comments: Source.............Cervical;EndocervicalNo. of containers..01 CYTYC Thin Prep VialPATIENT NOT FASTINGPERFORMED BY: =G [facility] Mhndnlfagg817 [facility] [id number] BY: WB L Guided) abCmargret Mymckntumb044 [facility] [id number] Note: PAPSMR (Normal) Comments: The Pap smear [...] Screening for malignant neoplasm of the cervixRenetta Medina Senior Speech Pathologist (ASCP) 39-Whu-978239:26 Thin Prep Pap Comments: Source.............Cervical;EndocervicalNo. of containers..01 CYTYC Thin Prep VialPATIENT NOT FASTINGPERFORMED BY: =G [facility] Nutsvghqcx897 [facility] [id number] BY: VICKI Beal (76815) [facility] Hzlfnbucsr388 [facility] [id number] Information: [id number] Age Gdln ACOG Testing AGE4 (Normal) Comments: <21 or >65 or no age provided 16-Lvu-20636:08 Rapid Strep Test, Office (00564) Comments: neg Rapid Strep Test, Office Negative (Normal) 77-Crz-82826:26 Microscopic Examination Comments: PATIENT WAS FASTINGPERFORMED BY: [employer]rooms [place] [id number] Bacteria None seen (Normal) Mucus Threads Present (Normal) Epithelial Cells (non renal) 0-10 {/hpf} (Normal) Range: 0 - 10 RBC 0-2 {/hpf} (Normal) Range: 0 - 2 WBC 0-5 {/hpf} (Normal) Range: 0 - 5 95-Ccu-532463:02 URINE MADAY CULTURE-FARIBA COL Comments: PERFORMED BY: HeTexted [place] [id number] COUNT (14618) Result 1 MUG (Normal) Comments: Mixed urogenital flora10,000-25,000 colony forming units per mL Urine Final report (Normal) Culture,Comprehensive 82-Gza-503930:00 Urinalysis, Office (20117) UA - LEUKOCYTE ESTERASE Negative (Normal) UA - NITRITE Negative (Normal) URINE UROBILINGN FARIBA TIMED Normal mg/dL (Normal) UA - PROTEIN Negative mg/dL (Normal) UA - PH 7.0 (Normal) UA - BLOOD non-hemolyzed trace (Normal) UA - SPECIFIC GRAVITY 1.010 (Normal) UA - KETONES Negative mg/dL (Normal) UA - BILIRUBIN Negative (Normal) UA - GLUCOSE Negative (Normal) 54-Znf-40437:26 METABOLIC PANEL, Comments: PATIENT WAS FASTINGPERFORMED BY: LabCoHudson County Meadowview HospitalMjnbej4716 [facility] [id number] Information: [id number] COMPREHENSIVE (14310) ALT (SGPT) 27 [iU]/L (Normal) Range: 0-32 [...] Glucose, Serum 88 mg/dL (Normal) Range: 65-99 :26 URINALYSIS, W/ MICRO (58979) Comments: PATIENT WAS FASTINGPERFORMED BY: Movirtu [facility] [id number] Microscopic Examination See below: (Normal) Comments: Microscopic was indicated and was performed. Microscopic Examination MICRON (Normal) Comments: Microscopic follows if indicated. Nitrite, Urine Negative (Normal) Urobilinogen,Semi-Qn 0.2 mg/dL (Normal) Range: 0.0-1.9 Bilirubin Negative (Normal) Occult Blood Negative (Normal) Ketones Negative (Normal) Glucose Negative (Normal) Protein Negative (Normal) WBC Esterase Negative (Normal) Appearance Clear (Normal) Urine-Color Yellow (Normal) pH 7.0 (Normal) Range: 5.0-7.5 Specific [place] 1.023 (Normal) Range: 1.005-1.030 :26 TSH (15568) Comments: PATIENT WAS FASTINGPERFORMED BY: kingsky6370 Hubbadr [facility] HospitalMartMobi TechnologiesCarolinas ContinueCARE Hospital at University [id number] TSH 3.170 {uIU/mL} (Normal) Range: 0.450-4.500 :26 Vitamin D Hydroxy (57512) Comments: PATIENT WAS FASTINGPERFORMED BY: kingsky6370 [facility] [id number] Vitamin D, 25-Hydroxy 34.3 ng/mL (Normal) Range: 30.0-100.0 Comments: Vitamin D deficiency has been defined by the [place] ofMedicine and an Endocrine Society practice guideline as alevel of serum 25-OH vitamin D less than 20 ng/mL (1,2).The Endocrine Society went on to further define vitamin Dinsufficiency as a level between 21 and 29 ng/mL (2).1. IOM ([place] of Medicine). 2010. Dietary reference intakes for calcium and D. [place]: The National Academies Press.2. Dung ROMANO, Ken MCFARLAND, Diego ELMORE, et al. Evaluation, treatment, and prevention of vitamin D deficiency: an Endocrine Society clinical practice guideline. JCEM. 2010; 96(7):1911-30. :26 LIPID PANEL (88754) Comments: PATIENT WAS FASTINGPERFORMED BY: LabAdvanced-TecHudson County Meadowview HospitalBpgavo9578 [facility] [id number]; will review at 04/11 appt LDL/HDL Ratio [...] (Abnormal) Range: 100-199 :31 Vitamin D Hydroxy (51621) Comments: PATIENT WAS FASTINGPERFORMED BY: ShareMemeHudson County Meadowview HospitalXlwswh1751 [facility] [id number] Vitamin D, 25-Hydroxy 35.2 ng/mL (Normal) Range: 30.0-100.0 Comments: Vitamin D deficiency has been defined by the [place] ofMedicine and an Endocrine Society practice guideline as alevel of serum 25-OH vitamin D less than 20 ng/mL (1,2).The Endocrine Society went on to further define vitamin Dinsufficiency as a level between 21 and 29 ng/mL (2).1. IOM ([place] of Medicine). 2010. Dietary reference intakes for calcium and D. [place]: The National Academies Press.2. Dung ROMANO, Ken MCFARLAND, Diego ELMORE, et al. Evaluation, treatment, and prevention of vitamin D deficiency: an Endocrine Society clinical practice guideline. JCEM. 2010; 96(7):1911-30. :31 TSH (09614) Comments: PATIENT WAS FASTINGPERFORMED BY: ShareMemeHudson County Meadowview HospitalBqrmft4035 [facility] [id number] TSH 3.100 {uIU/mL} (Normal) Range: 0.450-4.500 :31 MICROALBUMIN: CREATININE RATIO Comments: PATIENT WAS FASTINGPERFORMED BY: ADITU SASTrinity Health Oakland Hospital6370 [facility] [id number] (16246) AND (01204) Microalb/Creat Ratio 2.0 {mg/g_creat} (Normal) Range: 0.0-30.0 Microalbumin, Urine 3.8 ug/mL (Normal) Range: 0.0-17.0 Creatinine, Urine 189.7 mg/dL (Normal) Range: 15.0-278.0 :31 CBC WITH MANUAL DIFF Comments: PATIENT WAS FASTINGPERFORMED BY: ShareMemeHudson County Meadowview HospitalXiisrm6717 [facility] [id number] Information: [id number] (97138) Immature Grans (Abs) 0.0 {x10E3/uL} (Normal) Range: [...] PANEL, COMPREHENSIVE Comments: PATIENT WAS FASTINGPERFORMED BY: LabCoHudson County Meadowview HospitalDyjbwe6506 [facility] [id number] (79266) ALT (SGPT) 11 [iU]/L (Normal) Range: 0-32 [...] Glucose, Serum 96 mg/dL (Normal) Range: 65-99 80-Jdw-63946:31 LIPID PANEL (46737) Comments: PATIENT WAS FASTINGPERFORMED BY: ADITU SASTrinity Health [facility] Hospital6370 [facility] [id number] LDL/HDL Ratio 1.4 {ratio_units} (Normal) Range: 0.0-3.2 LDL Cholesterol Calc 89 mg/dL (Normal) Range: 0-99 VLDL Cholesterol Gabriel 30 mg/dL (Normal) Range: 5-40 HDL Cholesterol 62 mg/dL (Normal) Comments: According to ATP-III Guidelines, HDL-C >59 mg/dL is considered anegative risk factor for CHD. Triglycerides 149 mg/dL (Normal) Range: 0-149 Cholesterol, Total 181 mg/dL (Normal) Range: 100-199 42-Vax-723221:14 URINE MADAY CULTURE (FARIBA Comments: PATIENT NOT FASTINGPERFORMED BY: [address] [id number] Information: SRC: [id number] COL COUNT) (46117) Result 1 MUG (Normal) Comments: Mixed urogenital Colonies/mL Urine Culture,Comprehensive Final report (Normal) 49-Toh-885933:18 URINE MADAY CULTURE-IDENTIFICATN Comments: PATIENT NOT FASTINGPERFORMED BY: [facility] [place] [address] [id number] Information: [id number] (18297) Antimicrobial MIHEAD (Normal) Comments: S = Susceptible; [...] mL (Abnormal) Urine Final report Culture,Comprehensive (Abnormal) 44-Cve-423266:09 Urinalysis, Office (66845) UA - LEUKOCYTE ESTERASE Moderate (Normal) UA - NITRITE Negative (Normal) URINE UROBILINGN FARIBA TIMED Normal mg/dL (Normal) UA - PROTEIN Negative mg/dL (Normal) UA - PH 5.0 (Normal) UA - BLOOD Hemolyzed Large (Normal) UA - SPECIFIC GRAVITY 1.020 (Normal) UA - KETONES Negative mg/dL (Normal) UA - BILIRUBIN Negative (Normal) UA - GLUCOSE Negative (Normal) 01-Zrk-420294:37 URINE MADAY CULTURE-IDENTIFICATN Comments: PATIENT NOT FASTINGPERFORMED BY: [facility] Fmvncn6872 [facility] [id number] Information: SRC: URINE [id number] (53296) Antimicrobial MIHEAD (Normal) Comments: S = Susceptible; [...] mL (Normal) Urine Final report Culture,Comprehensive (Normal) 67-Tlj-936501:10 Urinalysis, Office (72843) UA - BILIRUBIN Negative (Normal) UA - BLOOD Hemolyzed Moderate (Normal) UA - GLUCOSE Negative (Normal) UA - KETONES Negative mg/dL (Normal) UA - LEUKOCYTE ESTERASE Large (Normal) UA - NITRITE Negative (Normal) UA - PH 6.0 (Normal) UA - PROTEIN Negative mg/dL (Normal) UA - SPECIFIC GRAVITY 1.025 (Normal) URINE UROBILINGN FARIBA TIMED Normal mg/dL (Normal) 79-Wdu-089257:14 HPV automatic Comments: Source.............Cervical;EndocervicalNo. of containers..01 CYTYC Thin Prep VialPATIENT NOT FASTINGPERFORMED BY: WB [facility] [place] [id number] BY: =Marcy Beal (32394) [facility] [place] [id number] Information: [id number] HPV, high-risk Negative Comments: This high-risk HPV [...] componen t) are present.V72.31 ; Routine gynecological examinationMichael Carmona Senior Speech Pathologist (ASCP) 24-Xzd-702175:45 FECAL OCCULT HGB ASSAY- tubes sent home (42478) FECAL OCCULT HGB ASSAY, QUAL, 1-3 SIMULTANEOU negative (Normal) 91-Jdk-738464:37 CBC WITH MANUAL DIFF Comments: PATIENT WAS FASTINGPERFORMED BY: JAMES [facility] Hgolgz2957 [facility] [id number] Information: [id number] (92987) Immature Grans (Abs) 0.0 {x10E3/uL} (Normal) Range: [...] 3.77-5.28 WBC 7.5 {x10E3/uL} (Normal) Range: 3.4-10.8 46-Rbe-536492:37 METABOLIC PANEL, COMPREHENSIVE Comments: PATIENT WAS FASTINGPERFORMED BY: LabCoHudson County Meadowview HospitalAzpvia4232 [facility] [id number] (48496) ALT (SGPT) 21 [iU]/L (Normal) Range: 0-32 [...] (Normal) Range: 65-99 :37 Vitamin D Hydroxy (33593) Comments: PATIENT WAS FASTINGPERFORMED BY: LaThermCarolinas ContinueCARE Hospital at University [id number] Vitamin D, 25-Hydroxy 35.3 ng/mL (Normal) Range: 30.0-100.0 Comments: Vitamin D deficiency has been defined by the [place] ofMedicine and an Endocrine Society practice guideline as alevel of serum 25-OH vitamin D less than 20 ng/mL (1,2).The Endocrine Society went on to further define vitamin Dinsufficiency as a level between 21 and 29 ng/mL (2).1. IOM ([place] of Medicine). 2010. Dietary reference intakes for calcium and D. [place]: The National Academies Press.2. Dung MF, Ken NC, Diego ELMORE, et al. Evaluation, treatment, and prevention of vitamin D deficiency: an Endocrine Society clinical practice guideline. JCEM. 2010; 96(7):1911-30. :37 TSH (91396) Comments: PATIENT WAS FASTINGPERFORMED BY: Cinnamon70 [address] [facility] HospitalMartMobi TechnologiesCarolinas ContinueCARE Hospital [facility] [id number] TSH 2.590 {uIU/mL} (Normal) Range: 0.450-4.500 :37 LIPID PANEL (13212) Comments: PATIENT WAS FASTINGPERFORMED BY: [facility] Hsprcm8443 [place] Garc[place] [id number] LDL/HDL Ratio 2.0 {ratio_units} (Normal) Range: 0.0-3.2 LDL Cholesterol Calc 141 mg/dL (Abnormal) Range: 0-99 VLDL Cholesterol Gabriel 25 mg/dL (Normal) Range: 5-40 HDL Cholesterol 72 mg/dL (Normal) Comments: According to ATP-III Guidelines, HDL-C >59 mg/dL is considered anegative risk factor for CHD. Triglycerides 125 mg/dL (Normal) Range: 0-149 Cholesterol, Total 238 mg/dL (Abnormal) Range: 100-199 04-Qmr-66168:01 BILAT SCRN DIGITAL & CAD Radiology Report [...] Durant M.D.April 21, 2013 at 3:29:39 PM [id number] Signed RU/RU If you are the referring physician and would like to consult with theradiologist who provided this interpretation, please contact Tricia Camarena at . If this radiologist is unavailable, youwillbe directed to another radiologist to assist. If you are a patient with a question regarding this report, pleasecontactyour referring physician direct ly. Professional Interpretation Provided By: [employer], Phone , These documents contain legally protected [...] the return or destructionofthese documents. Dictated on 04/21/13 1529 by Frank DurantTranscribed on 1537 by ITS IMPORTSign by Frank Durant on 04/21/13 1538 Sign by: Frank Durant 46-Nau-36559:18 CBCMD ANC 3.5 3/uL (Normal) Range: 2.0-7.7 [...] CHOL 194 mg/dL (Normal) Comments: <200 mg/dL Qcazwltiu646-681 mg/dL Borderline>240 mg/dL High Risk :18 TSH 2.02 {uIU/mL} (Normal) Range: 0.358-3.74 :18 VITD 56.0 ng/mL (Normal) Comments: Vitamin D 25(OH) Status RangeDeficiency <20 ng/mL (50nmol/L)Insufficiency 20 - 30 ng/mL (50 - 75 nmol/L)Sufficiency 30 - 100 ng/mL (75 - 250 nm ol/L)Toxicity >100 ng/mL (250 nmol/L)Effective 201209-Sep-201258-Wyv-644028:39 Aerobic Bacterial Culture Comments: PERFORMED BY: [place] [id number] [facility] [id number] Information: SRC: RIGHT CHEST Result 1 NG36 [...] D deficiency has been defined by the [place] ofMedicine and an Endocrine Society practice guideline as alevel of serum 25-OH vitamin D less than 20 ng/mL (1,2).The Endocrine Society went on to further define vitamin Dinsufficiency as a level between 21 and 29 ng/mL (2).1. IOM ([place] of Medicine). 2010. Dietary reference intakes for calcium and D. [place]: The National Academies Press.2. Dung MF, Ken NC, Diego ELMORE, et al. Evaluation, treatment, and prevention of vitamin D deficiency: an Endocrine Society clinical practice guideline. JCEM. 2010; 96(7): 1911-30.Performed at: [address] [id number] Director: Amari Barnett PhD, Phone: [phone] 6-Tth-810084:36 BILAT SCRN DIGITAL & CAD Radiology Report [...] Khan M.D.April 05, 2012 at 3:13:08 PM [id number] Signed GP/GP If you are the referring physician and would like to consult with theradiologist who provided this interpretation, please contact Tricia Butler at [phone]. If this radiologist is unavailable, youwill be directed to another radiologist to assist. If you are a patient with a questi on regarding this report, pleasecontactyour referring physician directly. Professional Interpretation Provided By: [employer], Phone , These documents contain legally prot [...] docum ents. Dictated on 04/05/12 1450 by Robert Khan MDscribed on 04/05/12 1518 by ITS IMPORTSign by Cruzito Khan MD on 04/05/12 1519 Sign by: Chester RAOCruzito 96-Myf-591252:06 HEPATOBILLIARY IMG W/PHARM INT Radiology Report See [...] Cholecystokinin (0.02 ug/kg) was administered intravenously over d63-nvekqi period. T he post CCK gallbladder ejection fraction anlpshvsddii38 minutes following Cholecystokinin administration was noted to [...] cystic duct syndrome) to be low. (David Carrillo al,Journal of Nuclear Medicine 32:1695, 1990). Signed: Frank Bustos M.D.March 31, 2012 at 9:50:05 AM [id number] Signed RB/RB If you are the referring physician and would like to consult with theradiologist who provided this interpretati on, please contact Tricia Hood at [phone]. If this radiologist is unavailable, you will bedirected to another radiologist to assist. If you are a patient with a question regarding this report , pleasecontactyour referring physician directly. Professional Interpretation Provided By: [employer], Phone , These documents contain legally protected [...] 29/08 0652 by Frank Bustos DOTranscribed on 03/31/121156 by ITS IMPORTSign by Frank Bustos DO on 03/31/121157 Sign by: Frank Bustos DO 09-Wcm-56617:09 GALLBLADDER Comments: f/u 03/19/12 Radiology Report See [...] size of the right kidney. The right odgmejlndjvcjq23.4 cm. Normal renal cortex. The right cortex measures 1.5 cm. Thereisa 7 mm x 6 mm x 5 mm cyst in t he upper pole. There is no righthydronephrosis. IMPRESSION:Mild dilatation of the common bile duct. Signed:Cruzito Khan M.D.March 18, 2012 at 10:37:07 AM [id number] Signed GP/G P If you are the referring physician and would like to consult with theradiologist who provided this interpretation, please contact Tricia Butler at [phone]. If this radiologist is wendie rushing, youwill be directed to another radiologist to assist. If you are a patient with a question regarding this report, pleasecontactyour referring physician directly. Professional Interpretation Provi ded By: [employer], Phone , Dictated on 03/18/12 0815 by Chester RAO,Kaushalranscribed on 03/18/12 1043 by ITS IMPORTSign by Cruzito Khan MD on 03/18/12 1043 Sign by: Cruzito Khan MD 16-Mar-2012 TUYET 58 U/L (Normal) Comments: DR VIERA ORDERED TSH, CMP, LIPID, CBCMD, UAC 10:19 Range: 25-115 14-Nkv-899280:19 CBCMD Comments: DR VIERA ORDERED TSH, CMP, [...] 4.2-5.4 WBC 7.1 K/mm3 (Normal) Range: 4.4-11.0 61-Dkw-430743:19 CMP Comments: DR VIERA ORDERED TSH, CMP, [...] 7-18 GLU 98 mg/dL (Normal) Range: 70-110 76-Xvh-943570:19 LIPASE 259 U/L (Normal) Comments: DR VIERA ORDERED TSH, CMP, LIPID, CBCMD, UAC Range: 70-290 96-Sed-301507:19 LIPID Comments: DR VIERA ORDERED TSH, CMP, [...] (Normal) UCLAR CLEAR (Normal) UCOL YELLOW (Normal) :39 Urinalysis, Office (06089) UA - BILIRUBIN Negative (Normal) UA - [...] Normal throat bhavesh isolated. No beta-hemolyticstreptococcus isolated. 19-Oxe-975940:37 Rapid Strep Test, Office (62389) Rapid Strep Test, Office Negative (Normal) :58 [...] 200-240 mg/dL Borderline >240 mg/dL High Risk 01-Nov-20117:58 TSH 1.62 {uIU/mL} (Normal) Range: 0.358-3.74 05-Jun-20110:00 [...] Shannon RAO,Marilia on 06/05/111902 Sign by : Shannon RAO,Marilia 27-May-2011 ART [id number] 81 U/L (Abnormal) Range: 12-68 12:07 58-Jia-953491:07 XOCHILT DIR SEMI-QL Comments: appt 06/03/11 XOCHILT DIRECT 33 AU/mL (Normal) :07 ASO 6031 94.6 {IU/mL} (Normal) Range: 0.0-200.0 Comments: Performed at: [address] Director: Leana Villar MD, Phone: [phone] 09-Fqa-188654:07 C-REACTIVE PROT 16.20 mg/L (Abnormal) Range: 0.0-3.0 Comments: C-Reactive Protein (CRP) provides useful information for thediagnosis, therapy and monitoring of inflammatory processesand associated diseases. For the evaluation of Relative Riskfor Cardiovascular Dise ase, a High Sensitivity CRP (HSCRP)should be ordered. 69-Oki-409705:07 CBCD,SMEAR DIFF RED CELL MORPH SeeNote {NORMAL} [...] 4.2-5.4 WBC 8.0 K/mm3 (Normal) Range: 4.4-11.0 :07 COMP METABOLIC GAP 8 (Normal) Range: 5-15 [...] mg/dL suggests IMPAIRED HOMEOSTASIS per A.D.A. criteria. :07 COMPLETE UA MUCUS, URINE 0 SEEN {/hpf} [...] NEGATIVE CLARITY CLEAR (Normal) COLOR STRAW (Normal) :07 ESR SED RATE 36 mm/h (Abnormal) Range: 0-30 :07 RHEUMATOID FAC < 10.0 {IU/mL} (Normal) :07 TSH 2.21 {uIU/mL} (Normal) Range: 0.358-3.74 77-Kft-381769:20 CHEST, PA AND LATERAL Radiology Report See [...] 1118 by Laz Alan MDTranscribed on 05/28/11 3045 by ITS IMPORTSign by Laz Alan MD on 05/28/11 8436 Sign by: Laz Alan MD 27-May-2011 CULTURE, THROAT See Note (Normal) Comments: Normal throat bhavesh isolated. No beta-hemolyticstreptococcus isolated. 8:38 12-Qsh-537388:34 PPD (07975) SKIN TEST INTRADERMAL TB negative (Normal) 90-Bbc-899305:23 LQDPAP [id number] PAPSMR Comment (Normal) Comments: The Pap smear [...] no HPV testing was performed. .Performed at: [address] [id number] Director: Young Pope MD, Phone: [phone] COMM . (Normal) DIAGN Comment (Normal) Comments: NEGATIVE FOR INTRAEPITHELIAL LESION AND MALIGNANCY.CELLULAR CHANGES ASSOCIATED WITH ATROPHY ARE PRESENT.THIS SPECIMEN WAS RESCREENED PART OF OUR [employer] PROGRAM.Satisfactory for evaluation. Endocervical component may not bedistinguished in cases of atrophy.Shayla Wright, Senior Speech Pathologist (ASCP)Zahraa Orr, Supervisory Senior Speech Pathologist (ASCP)This liquid based ThinPrep(R) pap test was screened withthe use of an image guided system. 68-Eio-203800:41 BILAT SCRN DIGITAL & CAD Radiology Report [...] clinically suspiciousabnormality. 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, there is a grade 2 anterior [...] 1338 by ITS IMPORTSign by Chester RAO,Regi iele on 02/26/11 1339 Sign by: Cruzito Khan MD 84-Dre-41183:19 CBCD,SMEAR DIFF PLT EST SeeNote (Normal) Comments: [...] 4.2-5.4 WBC 7.1 K/mm3 (Normal) Range: 4.4-11.0 92-Jla-32173:19 COMP METABOLIC GAP 9 (Normal) Range: 5-15 [...] 7-18 GLU 90 mg/dL (Normal) Range: 70-110 83-Jly-68510:19 COMPLETE UA AMORPHOUS 2+ (Normal) MUCUS, URINE [...] 1648 by GIBSON,MCKESSONSign by BATSHEVA GEORGE on 08/20/10820 Sign by: BATSHEVA GEORGE :26 COMP METABOLIC [...] CHOL 206 mg/dL (Abnormal) Comments: <200 mg/dL Nfowwqrqk976-512 mg/dL Borderline>240 mg/dL High Risk :26 TSH 1.24 {uIU/mL} (Normal) Range: 0.358-3.74 73-Qtw-639943:19 BILAT SCRN DIGITAL & CAD Radiology Report See Note (Normal) Comments: Exam Number: [id number] DIGITAL BILATERAL MAMMOGRAM Digital oblique and craniocaudal [...] been no change since priorexamination. Routine ankit [facility] mammographic followup is suggested. IMPRESSION1. Scattered bilateral microcalcifications. There has been no changesince prior examination.2. Routine annual mammographic followup is suggested.3. Benign. BIRADS Category 2. A letter regarding the results has been sent to the patient. This interpretation was rendered by a radiologist certified under theMammography Quality Standards Act of 1992 (M QSA). The mammograms werealso examined with computer-aided detection software ([employer], [employer], [employer].). 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 .Performed At: [address] [id number] PAPSM Comment (Normal) Comments: The Pap smear is a screening test designed to aid in thedetection of premalignant and malignant conditions of theuterine cervix. It is not a diagnostic procedure andshould not be used as the sole means of detecting cervicalcancer. Both false-positive and false-negative reports dooccur. . PERFORM Comment (Normal) Comments: Kmiberley Borges, Senior Speech Pathologist (ASCP) SIGN Comment (Normal) Comments: Wendi Elaine MD, Pathologist 6-Pja-336525:22 BILAT SCRN DIGITAL & CAD Radiology Report See Note (Normal) Comments: Exam Number: [id number] MAMMOGRAM, BILATERAL SCREENING DIGITAL AND CAD HISTORYRoutine [...] werealso examined with computer- aided detection software ([employer], [employer], [employer].). Reported By: SEAN AMAYA M.D. 2-Nib-804203:21 DEXA BONE DENSITY STUDY (HP) Radiology Report See Note (Normal) Comments: Exam Number: [id number] BONE DENSITOMETRY HISTORYPostmenopausal. TECHNIQUE Bone densitometry of the lumbar spine and left hip was performed. Thebest criteria for evaluation of osteoporosis is the T- value, whichrepresents the comparison of the patient's bone mass to an expectedpeak bone mass. For most patients, the mean T-value of L1 through L4is used to evaluate the lumbar spine. Based on the [place] WorldHealth Organization classifications, the hip is evaluated by utilizingthe lower of the T-value of the total hip or the T-value of thefemoral neck. FINDINGSIn this patient, the mean T-value o f L1 through L4 is 0.4 which isnormal. Bone mineral density is measured at 0.1% greater than vl8721. Digital lateral view for evaluation of vertebral [...] mg/dL (Normal) Range: 1.5-2.2 :08 T3, FREE 05015 2.9 pg/mL (Normal) Range: 2.3-4.2 Comments: Performed At: [address] [id number] :08 T4 FREE,DIRECT 1.0 ng/dL (Normal) Range: 0.89-1.76 :08 TSH 1.40 {uIU/mL} (Normal) Range: 0.34-4.82 :59 LOWER EXT/JT ONLY (ROUTINE) Radiology Report See Note (Normal) Comments: Exam Number: [id number] MRI OF THE RIGHT KNEE STATEMENTRight knee [...] medial meniscus. Reported By: ABDULAZIZ HENRY M.D. 51-Psi-997463:21 KNEE,4 OR MORE VIEWS (MT) Radiology Report See Note (Normal) Comments: Exam Number: [id number] RIGHT KNEE, 4 VIEWS REASON FOR EXAMINATIONRight [...] isolated. :30 :20 Rapid Strep Test, Office (54405) Comments: neg Rapid Strep Test, Office Negative [...] SED RATE 14 mm/h (Normal) Range: 0-30 32-Uir-274432:52 ABDOMEN WITH CONTRAST Radiology Report See Note (Normal) Comments: Exam Number: [id number] COMPUTED TOMOGRAPHY OF THE ABDOMEN WITH ORAL AND IV CONTRAST INDICATIONA 57-year-old female with epigastric pain, nausea. COMPARISONNone. TECHNIQUEContiguous transaxial images wer e obtained from the lung bases to thelevel of S1 following the uneventful administration of 100 cc [id number] intravenously. Oral contrast was also administered. REPORTLimited [...] mm/h (Abnormal) Range: 0-30 :13 Urinalysis, Office (27090) UA - LEUKOCYTE ESTERASE Negative (Normal) UA [...] :57 TSH 0.83 {uIU/mL} (Normal) Range: 0.34-4.82 :13 Urinalysis, Office (03782) Comments: done-jjp UA - BILIRUBIN Negative (Normal) UA - BLOOD Negative (Normal) UA - GLUCOSE Negative (Normal) UA - KETONES Negative mg/dL (Normal) UA - LEUKOCYTE ESTERASE Negative (Normal) UA - NITRITE Negative (Normal) UA - PH 5.0 (Normal) UA - PROTEIN Negative mg/dL (Normal) UA - SPECIFIC GRAVITY 1.005 (Normal) URINE UROBILINGN FARIBA TIMED Normal mg/dL (Normal) 3-Gsg-632580:44 Urinalysis, Office (78004) Comments: done UA - BLOOD Hemolyzed Large (Normal) UA - LEUKOCYTE ESTERASE Moderate (Normal) UA - NITRITE Negative (Normal) UA - PH 6.5 (Normal) UA - PROTEIN Negative mg/dL (Normal) UA - SPECIFIC GRAVITY 1.005 (Normal) URINE UROBILINGN FARIBA TIMED Normal mg/dL (Normal) UA - BILIRUBIN Negative (Normal) UA - GLUCOSE Negative (Normal) UA - KETONES Negative mg/dL (Normal) 5-Agi-945492:30 CULTURE, URINE URINE CULTURE See Note {CFU/mL} [...] screening for malignant neoplasm of cervix : *Well Female Maintenance (KF) Indication: Encounter [...] neuritis or radiculitis, unspecified Planned Observations TSH (21632)Indication: Acquired hypothyroidism On: :35 Request URINALYSIS, W/ MICRO (68774)Indication: Essential hypertension On: :34 Request MICROALBUMIN: CREATININE RATIO (43652) AND (34897)Indication: Essential hypertension On: :34 Request METABOLIC PANEL, COMPREHENSIVE (70426)Indication: Essential hypertension On: :34 Request CBC W/AUTO DIFF WBC (51663)Indication: Essential hypertension On: :34 Request LIPOPROTEIN, BLD, BY NMR (31755)Indication: Other and unspecified hyperlipidemia On: :34 Request CALCIFIDIOL (20455) VIT D 25Indication: Vitamin D deficiency, unspecified On: :34 Request URINE MADAY CULTURE-IDENTIFICATN (68599)Indication: URINARY TRACT INFECTION, SITE NOT SPECIFIED On: 45-Zjs-442179:53 Request Comments: post treatment culture Stool Guiac Test, Office (Medicare) (G0107)Indication: Hypercholesteremia On: 4-Wlx-030383:04 Request URINALYSIS, W/ MICRO (95359)Indication: Hematuria On: 74-Fww-181028:41 Request Vitamin D Hydroxy (11093)Indication: Vitamin D deficiency, unspecified On: :40 Request CBC W/AUTO DIFF WBC (30169)Indication: Essential hypertension On: 20-Hff-600144:40 Request METABOLIC PANEL, COMPREHENSIVE (09949)Indication: Essential hypertension On: 32-Swa-285975:39 Request LIPID PANEL (61597)Indication: Hypercholesteremia On: 36-Nuu-596379:39 Request TSH (75376)Indication: Acquired hypothyroidism On: :39 Request Vitamin D Hydroxy (21432)Indication: Vitamin D deficiency, unspecified On: 50-Ilv-267818:15 Request METABOLIC PANEL, COMPREHENSIVE (62263)Indication: Essential hypertension On: 71-Xlx-850736:14 Request LIPID PANEL (27306)Indication: Other and unspecified hyperlipidemia On: 04-Ald-798685:14 Request FECAL OCCULT- Tubes sent home (52980)Indication: Encounter for screening for malignant neoplasm of cervix On: 62-Sjd-925621:09 Request Thin prep Pap (61859)Indication: Well woman exam On: 97-Vbw-957042:46 Request LIPID PANEL (33799)Indication: Hypercholesteremia On: 64-Rtw-649907:23 Request MADAY CULTURE-OTHER (06589)Indication: Cellulitis On: 24-Qho-45184:22 Request METABOLIC PANEL, COMPREHENSIVE (98638)Indication: Essential hypertension On: :04 Request CBC WITH MANUAL DIFF (22143)Indication: Essential hypertension On: 09-Wcx-419118:04 Request Vitamin D Hydroxy (95502)Indication: Vitamin D deficiency, unspecified On: :04 Request TSH (99245)Indication: Acquired hypothyroidism On: :04 Request LIPID PANEL (98692)Indication: Other and unspecified hyperlipidemia On: 71-Uxk-472859:04 Request Vitamin D Hydroxy (77583)Indication: Vitamin D deficiency, unspecified On: 05-Apr-20129:25 Request METABOLIC PANEL, COMPREHENSIVE (81766)Indication: Essential hypertension On: :25 Request LIPID PANEL (77990)Indication: Other and unspecified hyperlipidemia On: :25 Request Amylase (97658)Indication: Abdominal pain, acute, right upper quadrant On: :05 Request Lipase (95146)Indication: Abdominal pain, acute, right upper quadrant On: :05 Request THROAT CULTURE (81618)Indication: ACUTE PHARYNGITIS (462.) On: 97-Frx-806369:37 Request CALCIFEDIOL (26651)Indication: Vitamin D deficiency, unspecified On: :35 Request URINALYSIS, W/ MICRO (25947)Indication: Essential hypertension On: :50 Request LIPID PANEL (22818)Indication: Other and unspecified hyperlipidemia On: :49 Request CBC WITH MANUAL DIFF (29211)Indication: Essential hypertension On: :49 Request METABOLIC PANEL, COMPREHENSIVE (83235)Indication: Essential hypertension On: 48-Rvs-320588:49 Request TSH (39932)Indication: Acquired hypothyroidism On: :49 Request SKIN TEST INTRADERMAL TB (66131)Indication: Erythema nodosum On: :49 Request Comments: Site- Left forearm MADAY CULTURE-OTHER (38075)Indication: Erythema nodosum On: :37 Request ANTISTREPTOLYSIN O-TITER (21156)Indication: Erythema nodosum On: :33 Request TSH (10770)Indication: Fatigue On: :22 Request URINALYSIS, W/ MICRO (37843)Indication: Erythema nodosum On: :20 Request C-REACTIVE PROTEIN (40829)Indication: Erythema nodosum On: :20 Request SED RATE ERYTHROCYTE (89444)Indication: Erythema nodosum On: 61-Lil-174729:20 Request METABOLIC PANEL, COMPREHENSIVE (64175)Indication: Erythema nodosum On: :20 Request CBC WITH MANUAL DIFF (27778)Indication: Erythema nodosum On: 41-Tif-542903:20 Request XOCHILT (ANTINUCLEAR ANTIBODY) (22043)Indication: Erythema nodosum On: 93-Pdq-773617:19 Request RHEUMATOID FACTOR-QUANT (61651)Indication: Erythema nodosum On: 35-Lol-210808:19 Request Thin prep Pap (87965)Indication: Well woman exam On: :17 Request URINALYSIS, W/ MICRO (97087)Indication: Essential hypertension On: :07 Request CBC WITH MANUAL DIFF (00106)Indication: Essential hypertension On: :07 Request LIPID PANEL (66345)Indication: Other and unspecified hyperlipidemia On: :06 Request TSH (02156)Indication: Acquired hypothyroidism On: :06 Request METABOLIC PANEL, COMPREHENSIVE (90359)Indication: Essential hypertension On: :06 Request METABOLIC PANEL, COMPREHENSIVE (29761)Indication: Essential hypertension On: 67-Ubh-522383:53 Request TSH (47142)Indication: Acquired hypothyroidism On: 05-Smu-562750:53 Request LIPID PANEL (36926)Indication: Other and unspecified hyperlipidemia On: 27-Pch-221520:53 Request LIPID PANEL (34680)Indication: Other and unspecified hyperlipidemia On: 83-Cuk-551984:31 Request METABOLIC PANEL, COMPREHENSIVE (33401)Indication: Essential hypertension On: 48-Prh-252455:30 Request CBC WITH MANUAL DIFF (96600)Indication: Essential hypertension On: 28-Wjn-036044:30 Request TSH (52205)Indication: Acquired hypothyroidism On: 42-Vje-718445:30 Request MADAY CULTURE-OTHER (95139)Indication: Neoplasm of uncertain behavior of skin On: 10-Txu-678717:26 Request Thin prep Pap (18126)Indication: Well woman exam On: 87-Drm-570825:00 Request Magnesium (68062)Indication: Palpitations On: 33-Jlt-825008:12 Request T4, FREE (THYROXINE) (11807)Indication: Palpitations On: 60-Ldc-586083:12 Request T3, FREE (TRIDOTHYRONINE) (38514)Indication: Palpitations On: 12-Eyb-481783:11 Request CBC WITH MANUAL DIFF (38245)Indication: Essential hypertension On: 90-Hzw-754841:11 Request METABOLIC PANEL, COMPREHENSIVE (44676)Indication: Essential hypertension On: 00-Rqm-632021:10 Request TSH (82346)Indication: Acquired hypothyroidism On: 15-Eiv-694594:10 Request LIPID PANEL (20576)Indication: Other and unspecified hyperlipidemia On: 82-Lur-835490:10 Request METABOLIC PANEL, COMPREHENSIVE (88325)Indication: Essential hypertension On: 47-Szq-982026:06 Request URINALYSIS W/O MICRO (69417)Indication: Essential hypertension On: 37-Wsz-121124:05 Request TSH (94856)Indication: Acquired hypothyroidism On: 77-Cez-289895: Request HEPATIC FUNCTION PANEL (12266)Indication: Other and unspecified hyperlipidemia On: : Request LIPID PANEL (68089)Indication: Other and unspecified hyperlipidemia On: 53-Mvi-484286:05 Request FERRITIN (54602)Indication: Other and unspecified hyperlipidemia On: 69-Hzv-143061:53 Request HEPATIC FUNCTION PANEL (50557)Indication: Other and unspecified hyperlipidemia On: 88-Kde-527928:53 Request LIPID PANEL (23108)Indication: Other and unspecified hyperlipidemia On: 42-Dhd-384690:53 Request MADAY CULTURE-OTHER (63866)Indication: ACUTE PHARYNGITIS (462.) On: 32-Xgd-626152:20 Request CBC WITH MANUAL DIFF (78274)Indication: Essential hypertension On: 50-Vat-174798:26 Request LIPID PANEL (63484)Indication: Other and unspecified hyperlipidemia On: 77-Hyf-406770:22 Request METABOLIC PANEL, COMPREHENSIVE (07584)Indication: Hyponatremia On: 15-Xrp-770379:22 Request TSH (91359)Indication: Acquired hypothyroidism On: 96-Ups-433622:22 Request METABOLIC PANEL, COMPREHENSIVE (97615)Indication: Hyponatremia On: 11-Ias-215681:00 Request CBC WITH MANUAL DIFF (45343)Indication: Anemia, unspecified On: 68-Kek-187473:00 Request SED RATE ERYTHROCYTE (34362)Indication: Epigastric pain On: 88-Hhk-866678:03 Request C-REACTIVE PROTEIN (43804)Indication: Epigastric pain On: 58-Emo-852743:03 Request METABOLIC PANEL, COMPREHENSIVE (90120)Indication: Epigastric pain On: 81-Pdh-093614:02 Request CBC WITH MANUAL DIFF (35264)Indication: Epigastric pain On: 40-Ytf-047724:02 Request METABOLIC PANEL, COMPREHENSIVE (44710)Indication: Essential hypertension On: 99-Pet-721619:49 Request TSH (08469)Indication: Acquired hypothyroidism On: 13-Xfc-556989:42 Request LIPID PANEL (28314)Indication: Other and unspecified hyperlipidemia On: 59-Tzo-966456:42 Request URINE MADAY CULTURE (FARIBA COL COUNT) (66211)Indication: Dysuria On: 3-Fje-229692:04 Request LIPID PANEL (45907)Indication: Other and unspecified hyperlipidemia On: 5-Cya-579900:05 Request MICROALBUMIN URINE QUANT (95064)Indication: Essential hypertension On: 9-Sww-738968:05 Request TSH (75615)Indication: Acquired hypothyroidism On: 8-Gvd-308174:04 Request URINALYSIS W/O MICRO (95889)Indication: Essential hypertension On: 3-Wec-216724:04 Request METABOLIC PANEL, COMPREHENSIVE (33632)Indication: Essential hypertension On: 0-Byl-934256:04 Request CBC WITH MANUAL DIFF (60644)Indication: Essential hypertension On: 0-Jrm-448014:04 Request Planned Encounters Medical; 6 Month FU - On: 12-Jan-2019 9:45 [facility] Windy Mayorga DO, DO, Kathleen Planned Procedures OSTEOPATHIC TREATMENT OF HEAD USING On: 09-Sep-2018 Intent [employer] Comments: cervical spine C1-C4 (04143)By: Windy Mayorga DO, DO, Kathleen X-RAY OF CERVICAL SPINE, TWO VIEWS On: 09-Sep-2018 Intent (85451)By: Windy Mayorga DO, DO, Kathleen MRA OF BRAIN (66162)By: Concetta COLEY, On: 09-Sep-2018 Intent Windy Jeffries DO MRI BRAIN (09897)By: Concetta COLEY, On: 09-Sep-2018 Intent Windy Jeffries DO ELECTROCARDIOGRAM, COMPLETE (ECG) On: 14-Jul-2018 Intent (22387)By: Windy Mayorga DO Comments: nsr no acute chg - poor R wave progression and nonspecific st flattening Concetta DO Windy Flu Vaccine (Quadrivalent) 37387Li: On: 11-Jun-2018 Intent Visit, Nurse Comments: Lot #:[id number] date: 7-25-16Zvnjro given:0.5mlRoute: IMSite given:L DltdGiven by: Melissa and DANNIELLE signed Fluarix Ultrasound - Breast - LeftBy: On: 04-Sep-2017 Intent Concetta DO, Windy Concetta DO, Windy KTVC-JJ-SVQL BEHAVIORAL COUNSELING On: 29-Jun-2017 Intent FOR OBESITY, 15 MINUTES (G0447)By: Windy Mayorga DO Concetta DO, Windy DEXA SCAN AXIAL SKELETON (17950)By: On: 29-Jun-2017 Intent Concetta DO, Windy Concetta DO, Windy SCREENING DIGITAL TOMOSYNTHESIS OF On: 29-Jun-2017 Intent BREAST (26738)By: Windy Mayorga DO Concetta DO, Windy ELECTROCARDIOGRAM, COMPLETE (ECG) On: 29-Jun-2017 Intent (45531)By: Windy Mayorga DO Comments: nsr no acute chg Concetta DO, Windy Flu Vaccine (Quadrivalent) 12512Ml: On: 17-Jun-2017 Intent Visit, Nurse Comments: Lot #[id number]/15/18ite-L dltd, IMDose prefilled syringegiven by:DAGMAR Mathis and DANNIELLE signed MAMMOGRAM, SCREENING, BOTH BREAST On: 16-May-2016 Intent (75277)By: Windy Mayorga DO Concetta DO, Windy Flu Vaccine (Quadrivalent) 13061Yk: On: 07-May-2016 Intent Concetta DO Windy Concetta DO, Comments: Lot:[id number]:02/27/17Dose:0.5mLRoute:IMSite:L DltdGiven By:GENTRY signed Windy ELECTROCARDIOGRAM, COMPLETE (ECG) On: 07-May-2016 Intent (25916)By: Windy Mayorga DO Comments: nsr no acute chg Concetat DO, Windy Aerosol Treatment (18024)By: Orvillerb On: 26-Mar-2016 Intent Lucretia ARNOLD Radiology - Chest- PA and LatBy: On: 03-Dec-2015 Intent Cuauhtemoc Viera DOa A Aerosol Treatment (69645)By: Terri On: 12-Nov-2015 Intent Lucretia ARNOLD Flu Vaccine (Quadrivalent) 95280Kr: On: 07-Jun-2015 Intent Visit, Nurse Comments: Lot #[id number]-L dltd, IMDose prefilled syringegiven by:DAGMAR Mathis and DANNIELLE signed Pap Smear, Medicare (Q0091)By: Juve On: 11-Apr-2015 Intent Cuauhtemoc COLEYa A MAMMOGRAM, SCREENING, BOTH BREAST On: 11-Apr-2015 Intent (31202)By: Raya Viera DO Aerosol Treatment (17751)By: Terri On: 09-Apr-2015 Intent Lucretia ARNOLD Radiology - Sacrum/CoccyxBy: Fast On: 04-Oct-2014 Intent Raya COLEY A ADMINISTRATION OF INFLUENZA VIRUS On: 09-Jun-2014 Intent VACCINE (G0008)By: Visit, Nurse FLU VAC, SPLIT, >3 YEARS, INTRAMUSC On: 09-Jun-2014 Intent (62140)By: Raya Viera DO Comments: Lot:[id number]:02/27/15Dose:0.5mLRoute:IMSite:L DltdGiven By:GENTRY signed MAMMOGRAM, SCREENING, BOTH BREAST On: 29-Mar-2014 Intent (75847)By: Raya Viera DO Comments: mar EKG (60837)By: Raya Viera DO On: 29-Mar-2014 Intent Comments: [...] Hough LPN FLU VAC, SPLIT, >3 YEARS, INTRAMUSC On: 19-Jul-2013 Intent (02540)By: Raya Viera DO Comments: lot [id number] 2014site/route L olga, IMamt 0.5mlVIS and ABN signed when applicableChelsea, ASSISTANT SERVICE MANAGER ADMINISTRATION OF INFLUENZA VIRUS On: 19-Jul-2013 Intent VACCINE (G0008)By: Raya Viera DO Eprescribed prescriptions On: 19-Jul-2013 Intent (G8553)By: Jennifer Coronado Pulse Oximetry (56744)By: Randall On: 22-Apr-2013 Intent THALIA EKG (27883)By: Jennifer Coronado On: 28-Jan-2013 Intent Comments: ekg showed normal sinus rhythym, normal axis, no acute st/t wave changes MAMMOGRAM, SCREENING, BOTH BREASTS On: 28-Jan-2013 Intent (28276)By: Raya Viera DO Comments: end march Eprescribed prescriptions On: 09-Sep-2012 Intent (G8553)By: Widny Mayorga DO, DO, Kathleen IMMUNIZ ADMNIN, 1 VAC, SNGL/COMBO On: 26-Jul-2012 Intent (01820)By: Raya Viera DO Eprescribed prescriptions On: 26-Jul-2012 Intent (G8553)By: Jennifer Coronado PNEUM VAC ADLT/IMUMNOSPR, SBC/INTRM On: 26-Jul-2012 Intent (29846)By: Raya Viera DO Comments: Lot:[id number]:Dose:0.5mLRoute:IMSite:l armGiven By:GENTRY signed Breast Screening - BilateralBy: On: 29-Mar-2012 Intent Raya Viera DO Nuclear Medicine - HIDA w/CPKBy: On: 19-Mar-2012 Intent Donna Locke CNP Ultrasound - GallbladderBy: [place] On: 15-Mar-2012 Intent Donna GROVE Eprescribed prescriptions On: 19-Dec-2011 Intent (G8553)By: Windy Mayorga DO, DO, Kathleen EKG (24797)By: Raya Viera DO On: 27-Oct-2011 Intent Comments: ekg showed normal sinus rhythym, normal axis, no acute st/t wave changes nonspecific old t wave inversion CT - ChestBy: Raya Viera DO On: 03-Jun-2011 Intent Comments: pe protocol-not stat but sometime this week Spirometry (95978)By: Juve COLEY, On: 26-May-2011 Intent Raya Arechiga Comments: good effort and curve normal Radiology - Chest- PA and LatBy: On: 26-May-2011 Intent Raya Viera DO DRAIN/INJECT, JOINT/BURSA On: 02-May-2011 Intent ([id number])By: Windy Mayorga DO Comments: 2 cc marcaine and 1 cc kenolog Windy Mayorga DO TDAP VACCINE >7 IM ([id number])By: Juve On: 11-Apr-2011 Intent Raya COLEY Comments: Lot #: [id number] date: 05/13Amount given: 0.5 mlRoute: IMSite given: left deltoidGiven by: Hawk Pardo RN EKG ([id number])By: Jennifer Coronado On: 17-Feb-2011 Intent Comments: ekg showed normal sinus rhythym, normal axis, no acute st/t wave changes nonspecific t wave inversion anteriorly- not changed- Eprescribed prescriptions On: 17-Feb-2011 Intent ([id number])By: Raya Viera DO DXA, BONE DENSITY, AXIAL SKELETON On: 17-Feb-2011 Intent ([id number])By: Raya Viera DO MAMMOGRAM, SCREENING, BOTH BREASTS On: 17-Feb-2011 Intent ([id number])By: Raya Viera DO Aerosol Treatment ([id number])By: Juve On: 14-Aug-2010 Intent Raya COLEY Spirometry ([id number])By: Cliff On: 14-Aug-2010 Intent Comments: good effort and curve -decrease small airways Radiology - Chest- PA and LatBy: On: 14-Aug-2010 Intent Raya Viera DO Pulse Oximetry ([id number])By: Cliff On: 14-Aug-2010 Intent Comments: 96% Pulse Oximetry ([id number])By: Chucky On: 31-Jul-2010 Intent MAINE Liat Aerosol Treatment ([id number])By: Chucky On: 31-Jul-2010 Intent Donna GROVE Pulse Oximetry ([id number])By: Chucky On: 15-Jul-2010 Intent Donna GROVE Aerosol Treatment ([id number])By: Chucky On: 15-Jul-2010 Intent Donna GROVE ELECTROCARDIOGRAM, COMPLETE (ECG) On: 24-Dec-2009 Intent ([id number])By: Chucky Donna GROVE MAMMOGRAM, SCREENING, BOTH BREASTS On: 25-Jun-2009 Intent ([id number])By: Raya Viera DO Wax CurettesBy: Chucky Donna GROVE On: 07-Jun-2009 Intent Ear Irrigation ([id number])By: Chucky On: 07-Jun-2009 Intent Donna GROVE FLU VAC, SPLIT, >3 YEARS, INTRAMUSC On: 05-Jun-2009 Intent ([id number])By: Tuyet Camejo IMMUNIZ ADMNIN, 1 VAC, SNGL/COMBO On: 05-Jun-2009 Intent ([id number])By: Tuyet Camejo Comments: Lot #[id number]-left deltoidgiven by:[facility] DRAIN SKIN ABSCESS, SIMPLE/SINGLE On: 13-Nov-2008 Intent ([id number])By: Chucky GROVEDonna Holter Moniter ([id number])By: Randall On: 12-Sep-2008 Intent THALIA Comments: placement Pt given diary and instructions 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 DXA, BONE DENSITY, AXIAL SKELETON On: 16-Aug-2008 Intent ([id number])By: Raya Viera DO MAMMOGRAM, SCREENING, BOTH BREASTS On: 16-Aug-2008 Intent ([id number])By: Raya Viera DO Holter Monitor 24 hrsBy: Juve COLEY, On: 16-Aug-2008 Intent Raya Arechiga EKG ([id number])By: Jennifer Coronado On: 16-Aug-2008 Intent Comments: ekg showed normal sinus rhythym, normal axis, no acute st/t wave changes t wave inversion anteriorly unchanged IMMUNIZ ADMNIN, 1 VAC, SNGL/COMBO On: 16-Jun-2008 Intent ([id number])By: Renetta Hough LPN FLU VAC, SPLIT, >3 YEARS, INTRAMUSC On: 16-Jun-2008 Intent ([id number])By: Renetta Hough LPN Comments: 0.5cc given im lt olga H.Horn SPECIMEN HNDLNG/TRNSPRT, OFFC > LAB On: 18-Jan-2008 Intent ([id number])By: Jennifer Coronado CT - AbdomenBy: Juve Raya Arechiga On: 19-Jul-2007 Intent Comments: stat tonight call wet read EKG ([id number])By: THALIA Pereira On: 21-Jun-2007 Intent Comments: ekg showed normal sinus rhythym, normal axis, no acute st/t wave changesasymetric twave inversion- no change FLU VAC, SPLIT, >3 YEARS, INTRAMUSC On: 21-Jun-2007 Intent ([id number])By: THALIA Pereira Comments: Lot #:Expiration date:Amount given:Route: IMSite given:left deltoidGiven by: iveth Lot # [id number] exp 02-28-08 IMMUNIZ ADMNIN, 1 VAC, SNGL/COMBO On: 21-Jun-2007 Intent ([id number])By: THALIA Pereira FLU VAC, SPLIT, >3 YEARS, INTRAMUSC On: 06-Jul-2006 Intent ([id number])By: THALIA Pereira IMMUNIZ ADMNIN, 1 VAC, SNGL/COMBO On: 06-Jul-2006 Intent ([id number])By: THALIA Pereira Comments: Lot #:Expiration date:Amount given:Route: [...] Hypercholesteremia : DISCONTINUED - METABOLIC PANEL, COMPREHENSIVE ([id number]) Indication: Hypercholesteremia Hypercholesteremia : DISCONTINUED - LIPID PANEL ([id number]) Indication: Hypercholesteremia BMI 30.0-30.9,adult : How to [...] : Patient Instructions Indication: Essential hypertension Encounters Office Visit On: 09-Sep-2018 10:38 Encounter Reason: Headache - No changes in management were made at the last visit. Symptoms include new onset headache and different headache features. The patient describes the pain as aching. Onset was sudden 3 week(s) End: 10-Jay-2019 11:57 ago. The symptoms occur constantly. The [...] The patient does have durable power of subacute nurse and living will. The patient has noticed nothing from the geriatic depression scale. Other providers contributing to the patient's care are checker cashier and weight inspector. Encounter Diagnosis: BMI 30.0-30.9,adult, Nonsmoker, Acquired hypothyroidism, [...] The patient does have durable power of subacute nurse and living will. The patient has noticed [...] The patient does have durable power of subacute nurse and living will. The patient has noticed [...] sarcoid issues bp good aniety godean and josebone npainnot routinely agained offered referral to ortho [...] Well Women Exam: no breast mass no [id number] Encounter Diagnosis: Annual Medicare Physical (V70.0), Well [...] The patient does have durable power of subacute nurse and living will. The patient has noticed nothing from the geriatic depression scale. Other pr oviders contributing to the patient's care are checker cashier (Dr. Candelario), gastrologist (Dr. Marion) and other: [...] thigh pain go ne- the therapy at [facility] helped - bp stable and no more [...] Knee Pain: she has been back to [facility] End: 25-Feb-2012 9:37 and 3 seesions [...] of- november 13 she has surgery with jsoe alfredo- she doesnt want to get back [...] of angina ,history of CHF ,history of [place] ,smoking ,syncope or use of decongestants. Note [...] weight :. 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
--- OUTSIDE RECORDS SUMMARY | 2018-11-21 02:17 | XMS RPT_ITS | Continuity of Care Document ---
:1950 Author Organization [facility] Address [address] [facility] [address] [place] [address] Phone Care Team Providers Name Role Phone Windy Mayorga DO Unavailable Dr. 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, did not eat Status: Active Knee pain (M25.569, 719.46) Comments: R knee, does not want steroid, consider return to [place] Status: Active Need for prophylactic vaccination and [...] 200 MG Oral Capsule 1 (one) Capsule q6hrs for 0 days Quantity: 30 {Capsule} Refills: 0 Ordered:17-Aug-2018 Donna Locke CNP Start : 17-Aug-2018 Active Atenolol 25 MG Oral Tablet 1/2 (one half) Tablet QD for 90 days Quantity: 90 {Tablet} Refills: 3 Ordered:22-Mar-2018 Sharyn Mayorga DO, DO, Kathleen Start : 22-Mar-2018 Active Comments:d/c the metoprolol and fill anteolol instead Biaxin 500 MG Oral Tablet 2 (two) Tablet Tablet daily for 10 days Quantity: 20 {Tablet} Refills: 0 Ordered:10-Aug-2018 Christi Hernández Start : 10-Aug-2018 Active Caltrate 600 + D 600-200 MG-IU Oral [...] DO, DO, Kathleen Start : 28-Dec-2017 Active Vitamin C 100 MG Oral Tablet [...] Start : 04-Jun-2015 End : 14-Jun-2015 Inactive BIAXIN XL PAC, 500MG (Oral Tablet Extended Release 24 Hour) 2 (two) Tablet ER 24HR daily for 10 days Quantity: 20 {Tablet_ER_24HR} Refills: 0 Ordered:22-Apr-2013 Viky Robertson MD Start : 22-Apr-2013 End : 02-May-2013 Inactive Comments:voidafter 30 days Bleph-10 10 % Ophthalmic Solution 1-2 Metric Drop q2-3h for 7 days Quantity: 1 {Bottle} Refills: 0 Ordered:30-Apr-2018 Chucky GROVEDonna Start : 30-Apr-2018 End : 07-May-2018 Inactive [...] days Quantity: 14 {Tablet} Refills: 0 Ordered:13-Nov-2008 Donna Locke CNP Start : 13-Nov-2008 End : 20-Nov-2008 Inactive [...] 10 {Capsule} Refills: 0 Ordered:14-Sep-2017 Renetta Hough CLAYTON Start : 14-Sep-2017 End : 19-Sep-2017 Inactive [...] Start : 12-Nov-2015 End : 31-Dec-2015 Discontinued KRSITINA ALLERGY, 60MG (Oral Tablet) 1 (one) Tablet [...] if not improved will send to do intern Status: Inactive as of 14-Jul-2018 Anemia, unspecified [...] stretches. medrol dose eyad then go to [facility]. will be traveling. if not better [...] Result: Comments: See Note; NOTES: [facility] [address] [place] [address] [address] [place] [address] OFFICE VISIT Date of Service: 10/10/17 MR#: [id number] Acct: [id number] Name: JULIET SHORT Rep #: [id number] : 1950 Provider: Cuba GONSALVES Age/Sex: 67/F Location: [facility] Status: Signed Intake Vital Signs10/10/17 Height 5 [...] #10 10/10/17 [History Confirmed 10/10/17] [facility] Medical History Knee pain (Acute) Thyroid disease [...] the above. This note was generated with Safello dictation software. It may contain incorrect words, [...] Limited Unilateral Result: Comments: See Note; NOTES: [facility] Imaging Services [address] [facility] [place] [address] Breast Limited Unilateral MR#: [id number] Acct: [id number] Name: JULIET SHORT Rep #: [id number] : 1950 F 67 From: rCuzito hKan MD PCP: Windy Mayorga DO Status: [facility] CLI Study: Breast Limited Unilateral Date of Exam: 09/07/17 Exam# [id number] Ordering Dr: Windy Mayorga DO STUDY: ULTRASOUND [...] Cruzito Khan MD at 15:14 EST Tel [phone], Service support , CC: Windy Mayorga DO Mold Making Supervisor: Signed 03-Sep-2017 Dexa Bone Density Study () Result: Comments: See Note; NOTES: [facility] Imaging Services [address] [place] [address] Dexa Bone Density Study () MR#: [id number] Acct: [id number] Name: JULIET SHORT Rep #: [id number] : 1950 F 67 From: Cruzito Khan MD PCP: Windy Mayorga DO Status: [facility] Study: Dexa Bone Density Study () Date of Exam: 09/08/17 Exam# [id number] Ordering Dr: Delfina Mayorga DO STUDY: DUAL [...] Cruzito Khan MD at 8:30 EST Tel [phone], Service support , CC: Windy Mayorga DO Mold Making Supervisor: Signed 03-Sep-2017 SCREENING MAMM (CAD), BILAT Result: Comments: See Note; NOTES: [facility] Imaging Services [address] [place] [address] SCREENING MAMM (CAD), BILAT MR#: [id number] Acct: [id number] Name: JULIET SHORT Rep #: [id number] : 1950 F 67 From: Cruzito Khan MD PCP: Windy Mayorga DO Status: REG CLI Study: SCREENING MAMM (CAD), BILAT Date of Exam: 09/03/17 Exam# [id number] Ordering Dr: Windy Mayorga DO MAMMOGRAPHY - [...] delay biopsy of a clinically suspicious abnormality. [id number] Electronically Signed: Cruzito Khan MD at 14:17 EST Tel [phone], Service support , CC: Windy Mayorga DO Mold Making Supervisor: Signed 30-Mar-2017 Inital Evaluation (1) - PT Result: Comments: See Note; NOTES: [facility] [address] [place] [address]. [address] [place], [place] [address] Fax REHABILITATION SERVICES INITIAL EVALUATION MR#: [id number] Acct: [id number] Name: JULIET SHORT Rep #: [id number] : 1950 67 From: Kimberley Clemente DPT Referring Dr.: Cyndy Ann DPM Status: REG RCR Insurance: MEDICARE P ART A B AARP Patient's Visit Information JULIET SHORT is a 67 year old F referred to Physical Therapy by Cyndy Ann DPM with a diagnosis of Plantar Fascitis. Date of Evaluation: 03/30/17 [facility] sicmt Therapist: Kimberley Clemente - Visit Plan Frequency: 2x /Week Duration: 2 Weeks Plan: Dry Needling - Subjective Subjective: Patient reports plantar fascitis on the right- has had it before and it w ent away on its own starting 3 years ago- stretches and strengthening with good shoes. This flare started in Oct when she went to [facility]- has been fighting with it since. Its affecting her lifestyle sh e is a walker and goer. Pain is [...] and is much better. 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 For Medicare and [facility] plans, please review the plan of care and approve it. It will need to be FAXED BACK to us at [phone] for Medicare purposes. Please let me know if there are questions or concerns regar ding this plan of care. Physician Signature: Date: <Electronically signed by Kimberley Clemente DPT> 03/30/17 8699 CC: Tamika Ann DPM; Windy Mayorga DO ELR Signed For Medicare only, by signing this I certify the plan of care. Physicians Signature Date 26-Nov-2016 PT D/C Summary (1) Result: Comments: See Note; NOTES: [facility] [address] [place], [place] [address] Fax REHABILITATION SERVICES DISCHAR GE SUMMARY MR#: [id number] Acct: [id number] Name: JULIET SHORT Rep #: [id number] [...] please feel free to call me at [phone]. Thank you for the referral of this patient. Sincerely, Sunshine Arechiga Cro ss <Electronically signed by Cert. MAIRA Stone PTT> 11/26/16 1422 CC: Windy Mayorga DO TIFFANY Signed 29-Sep-2016 Inital Evaluation (1) - PT Result: Comments: See Note; NOTES: [facility] [address] [place] [address]. [address] [place] [address] Fax REHABILITATION SERVICES INITIAL EVALUATION MR#: [id number] Acct: [id number] Name: JULIET SHORT Rep #: [id number] : 1950 66 From: Cert. MAIRA Stone PTT Referring Dr.: Windy Mayorga DO Status: REG RCR Insurance: [place] PART A B AARP Patient's Visit [...] to evaluate your patient. For Medicare and [facility] plans, please review the plan of care and approve it. It will need to be FAXED BACK to us at [phone] for Medicare purposes. Please let me know if there are questions or concerns regard ing this plan of care. Physician Signature: Date: <Electronically signed by Sunshine Green PT, Cert. MDT> 09/29/16 0957 C C: Windy Mayorga DO TIFFANY Signed For Medicare only, by signing this I certify the plan of care. Physicians Signature Date 26-Jun-2016 Bilat Scrn Digital AND CAD Result: Comments: See Note; NOTES: [facility] Imaging Services [address] [place] [address] Verdana 4d Bilat Scrn Digital AND CAD MR#: [id number] Acct: [id number] Name: JULIET SHORT Rep #: [id number] : 1950 F 66 From: Cruzito Khan MD PCP: Windy Mayorga DO Status: REG CLI Study: Bilat Scrn Digital AND CAD Date of Exam: 06/26/16 Exam# [id number] Ordering Dr: Windy Mayorga DO MAMMOGRAPHY - [...] delay biopsy of a clinically suspicious abnormality. [id number] Electronically Signed: Cruzito Khan MD at 14:03 EDT Tel [phone], Service support [phone], CC: Windy Mayorga DO Mold Making Supervisor: Signed 26-May-2016 Chest PA and Lateral Result: Comments: See Note; NOTES: [facility] Imaging Services [address] [place] [address] [place] [address] Verdana 4d Chest PA and Lateral MR#: [id number] Acct: [id number] Name: JULIET SHORT Rep #: [id number] : 1950 F 66 From: Samuel Cutler MD PCP: Windy Mayorga DO Status: REG CLI Study: Chest PA and Lateral Date of Exam: 05/26/16 Exam# [id number] Ordering Dr: Gatito Laurent MD STUDY: X-RAY [...] MD at 0:00 EDT , Service support [phone], CC: Windy Mayorga DO; Gatito Laurent MD Mold Making Supervisor: Signed 03-Dec-2015 Chest PA and Lateral Result: Comments: See Note; NOTES: [facility] Imaging Services [address] [place] [address] Verdana 4d Chest PA and Lateral MR#: [id number] Acct: [id number] Name: JULIET SHORT Rep #: [id number] : 1950 F 65 From: Rush Arauz MD PCP: Raya Viera DO Status: REG CLI Study: Chest PA and Lateral Date of Exam: 12/03/15 Exam# [id number] Ordering Dr: Wyatt Viera DO STUDY: X-RAY [...] at 6:54 EDT Tel , Service support [phone], RAD/Chest PA and Lateral IMPRESSION: No acute cardiopulmonary disease is seen, although I suspect some inters titial lung disease or mild fibrotic changes as could be seen with parenchymal phase of sarcoidosis, interval regression of the hilar prominence or adenopathy previously demonstrated. Electronically Signed: Donnie Arauz MD at 6:54 EDT Tel , Service support [phone], CC: Raya Viera DO Mold Making Supervisor: Signed 03-Dec-2015 Spirometry (91850) Comments: good effort and curve normal- alot of coughing Result: 27-Apr-2015 Bilat Scrn Digital AND CAD Result: Comments: See Note; NOTES: [facility] Imaging Services [address] [place] [address] Breast Imaging Report MR#: [id number] Acct: [id number] Name: JULIET SHORT Rep #: [id number] : 1950 F 65 From: Cruzito Khan MD PCP: Raya Viera DO Status: REG CLI Study: Bilat Scrn Digital AND CAD Date of Exam: 04/27/15 Exam# [id number] Ordering Dr: Raya Viera DO MAMMOGRAPHY - BILATERAL SCREENING REASON FOR EXAM: Female, 65 years old. Routine annual screening examination. PERTINENT HISTORY: Non-contributory. TECHNIQUE: Digital examination. Mediolateral oblique (MLO) and craniocaudad (CC) views of both breasts were obtained. CAD: CAD was performed on this study. COMPARISON: Comparison is made with prior study dated April 26, 2014 and April 21 000. FINDINGS: Breast Composition: There are scattered areas [...] these results [facility] ient by the facility within 30 days. Approximately 10% of breast cancers are not detected by mammography. A normal mammogram should not delay biopsy of a clinically suspicious abnormality. Electro nically Signed: Cruzito Khan MD at 8:58 EDT Tel [phone], Service support [phone], CC: Raya Viera DO Mold Making Supervisor: Signed 05-Oct-2014 Sacrum-Coccyx min 2 Views Result: Comments: See Note; NOTES: [facility] Imaging Services [address] [place] [address] Radiology Report MR#: [id number] Acct: [id number] Name: JULIET SHORT Rep #: [id number] : 1950 F 64 From: Mahendra Bedoya DO PCP: Raya Viera DO Status: REG CLI Study: Sacrum-Coccyx min 2 Views Date of Exam: 10/05/14 Exam# [id number] Ordering Dr: Raya Viera DO STUDY: X-RAY [...] Mahendra Bedoya DO at 17:00 EST Tel [phone], Service support [phone], CC: Raya Viera DO Mold Making Supervisor: Signed 26-Apr-2014 Bilat Scrn Digital & CAD Result: Comments: See Note; NOTES: [facility] Imaging Services [address] [place] [address] Breast Imaging Report MR#: [id number] Acct: [id number] Name: JULIET SHORT Rep #: [id number] : 1950 F 64 From: Cruzito Khan MD PCP: Raya Viera DO Status: REG CLI Exam# [id number] Ordering Dr: Raya Viera DO MAMMOGRAPHY - [...] Cruzito Khan MD at 9:13 EDT Tel [phone], Service support [phone], CC: Raya Viera DO Mold Making Supervisor: Signed 26-Oct-2013 Knee 4 or More Views Result: Comments: See Note; NOTES: [facility] Imaging Services [address] [place] [address] Radiology Report MR#: [id number] Acct: [id number] Name: JULIET SHORT Rep #: [id number] : 1950 F 63 From: Cruzito Khan MD PCP: Raya Viera DO Status: REG CLI Study: Knee 4 or More Views Date of Exam: 10/26/13 Exam# [id number] Ordering Dr: Windy Mayorga DO STUDY : [...] M.D. at 16:16 EST , Service support [phone], CC: Raya Viera DO; Windy Mayorga DO Mold Making Supervisor: Signed Immunization Name Dates Details Influenza (3 years and up) on: 06-Jul-2006 Influenza (3 years and up) on: 21-Jun-2007 Comments: Lot #:Expiration date:Amount given:Route: IMSite given:left deltoidGiven by: iveth Lot # [id number] exp 02-28-08 Influenza (3 years and up) on: 16-Jun-2008 Comments: 0.5cc given im lt olga H.Horn Influenza (3 years and up) on: 05-Jun-2009 Pneumococcal conjugate vaccine, 13 valent, IM on: 2014 Comments: Prevnar Family History Unknown Family Member Name Dates Details Brother 1 Comments: In good health Status: Active Father Comments: [place], Prosatate [place], HTN Status: Active Mother Comments: [...] smoker Vital Signs Date Test Result Details 33-Sfv-672499:56 Temperature 97.7 f Comments: Method: Temporal Pulse [...] kg/m2 Body Surface Area Calculated 1.87 m2 88-Dal-982510:39 Comments: recheck: 115/70 Temperature 97.2 f Pulse [...] Calculated 1.88 m2 Head Circumference 0.00 cm 0-Jso-936545:57 Pulse 68 /min Comments: Pattern: Regular Respiration [...] 0.00 cm Results Date Description Value Details 92-Bek-810796:59 URINE MADAY CULTURE-IDENTIFICATN Comments: PATIENT NOT FASTINGPERFORMED BY: JAMES [facility] Ibppke9568 [facility] [id number] Information: SRC:UC (83361) Result 1 MUG (Normal) Comments: Mixed urogenital pikpd123 Colonies/mL Urine Culture,Comprehensive Final report (Normal) 53-Ywx-114913:15 TSH (39767) Comments: PATIENT NOT FASTINGPERFORMED BY: [facility] Knnwje2636 [facility] [id number] TSH 1.790 {uIU/mL} (Normal) Range: 0.450-4.500 43-Wgm-057731:15 T4, FREE (THYROXINE) (76864) Comments: PATIENT NOT FASTINGPERFORMED BY: [facility]6370 [facility] [id number] T4,Free(Direct) 1.07 ng/dL (Normal) Range: 0.82-1.77 20-Yxz-187404:15 T3, FREE (TRIDOTHYRONINE) (78550) Comments: PATIENT NOT FASTINGPERFORMED BY: [facility] Fivsfv0117 [facility] [id number] Triiodothyronine (T3), Free 2.7 pg/mL (Normal) Range: 2.0-4.4 29-Xic-473758:15 Microscopic Examination Comments: PATIENT WAS FASTINGPERFORMED BY: [facility] Pwswjq4239 [facility] [id number] Bacteria None seen (Normal) Mucus Threads Present (Normal) Epithelial Cells (non renal) 0-10 {/hpf} (Normal) Range: 0 - 10 RBC 0-2 {/hpf} (Normal) Range: 0 - 2 WBC 0-5 {/hpf} (Normal) Range: 0 - 5 62-Sen-174857:11 URINE MADAY CULTURE-FARIBA COL Comments: PATIENT NOT FASTINGPERFORMED BY: [facility]6370 [facility] [id number] Information: SRC:UC COUNT (54003) Antimicrobial MIHEAD (Normal) Comments: S = Susceptible; [...] mL (Abnormal) Urine Final report Culture,Comprehensive (Abnormal) 70-Uaq-540844:07 Urinalysis, Office (08777) UA - LEUKOCYTE ESTERASE Small (Normal) UA - NITRITE Negative (Normal) URINE UROBILINGN FARIBA TIMED Normal mg/dL (Normal) UA - PROTEIN Negative mg/dL (Normal) UA - PH 6 (Abnormal) UA - BLOOD Negative (Normal) UA - SPECIFIC GRAVITY 1.015 (Normal) UA - KETONES Negative mg/dL (Normal) UA - BILIRUBIN Negative (Normal) UA - GLUCOSE Negative (Normal) 71-Ulf-895923:16 URINE MADAY CULTURE-IDENTIFICATN Comments: PERFORMED BY: [facility]6370 [facility] [id number] Information: SRC:UR (07699) Antimicrobial MIHEAD (Normal) Comments: S = Susceptible; [...] mL (Abnormal) Urine Final report Culture,Comprehensive (Abnormal) 17-Otu-027313:00 Urinalysis, Office (71243) UA - LEUKOCYTE ESTERASE Large (Normal) UA - NITRITE Positive (Normal) URINE UROBILINGN FARIBA TIMED 2 mg/dL (Normal) UA - PROTEIN Negative mg/dL (Normal) UA - PH 5.0 (Normal) UA - BLOOD Hemolyzed Small (Normal) UA - SPECIFIC GRAVITY 1.015 (Normal) UA - KETONES Negative mg/dL (Normal) UA - BILIRUBIN Negative (Normal) UA - GLUCOSE Negative (Normal) 06-Luo-557616:12 Rapid Flu (98865 x 2) Influenza A Ag Positive A (Normal) Comments: had flu shot 74-Jnr-300072:15 CALCIFIDIOL (78063) VIT D 25 Comments: PATIENT WAS FASTINGPERFORMED BY: [facility] [id number] Vitamin D, 25-Hydroxy 45.6 ng/mL (Normal) Range: 30.0-100.0 Comments: Vitamin D deficiency has been defined by the [place] of[place]icine and an Endocrine Society practice guideline as alevel of serum 25-OH vitamin D less than 20 ng/mL (1,2).The Endocrine Society went on to further define vitamin Dinsufficiency as a level between 21 and 29 ng/mL (2).1. IOM ([place] of Medicine). 2010. Dietary reference intakes for calcium and D. [place]: The National Academies Press.2. Dung MF, Ken NC, Diego ELMORE, et al. Evaluation, treatment, and prevention of vitamin D deficiency: an Endocrine Society clinical practice guideline. JCEM. 2010; 96(7):1911-30. 28-Pag-680451:15 TSH (73478) Comments: PATIENT WAS FASTINGPERFORMED BY: [facility] Rcbpat6705 [facility] [id number] TSH 4.170 {uIU/mL} (Normal) Range: 0.450-4.500 42-Svz-854396:15 URINALYSIS, W/ MICRO (27889) Comments: PATIENT WAS FASTINGPERFORMED BY: [employer] Acajma0246 [facility] [id number] Microscopic Examination See below: (Normal) Comments: Microscopic was indicated and was performed. Microscopic Examination MICRON (Normal) Comments: Microscopic follows if indicated. Nitrite, Urine Negative (Normal) Urobilinogen,Semi-Qn 0.2 mg/dL (Normal) Range: 0.2-1.0 Bilirubin Negative (Normal) Occult Blood Negative (Normal) Ketones Negative (Normal) Glucose Negative (Normal) Protein Negative (Normal) WBC Esterase Negative (Normal) Appearance Clear (Normal) Urine-Color Yellow (Normal) pH 7.0 (Normal) Range: 5.0-7.5 Specific Bartley 1.020 (Normal) Range: 1.005-1.030 58-Wdv-248177:15 MICROALBUMIN: CREATININE RATIO Comments: PATIENT WAS FASTINGPERFORMED BY: ShrinkTheWebNew Bridge Medical CenterJyxnyu2759 [facility] [id number] (38867) AND (90503) Alb/Creat Ratio 17.8 {mg/g_creat} (Normal) Range: 0.0-30.0 Albumin, Urine 25.9 ug/mL (Normal) Creatinine, Urine 145.6 mg/dL (Normal) 18-Akd-775491:15 METABOLIC PANEL, COMPREHENSIVE Comments: PATIENT WAS FASTINGPERFORMED BY: ShrinkTheWebSanta Ana Health CenterOqwmgp4164 [facility] [id number] (27087) ALT (SGPT) 15 [iU]/L (Normal) Range: 0-32 [...] 8-27 Glucose 83 mg/dL (Normal) Range: 65-99 94-Bpu-720118:15 LIPID PANEL (12050) Comments: PATIENT WAS FASTINGPERFORMED BY: [employer]70 [facility] [id number] LDL/HDL Ratio 1.3 {ratio} (Normal) Range: 0.0-3.2 Comments: LDL/HDL Ratio Men Women 1/2 Avg.Risk 1.0 1.5 Av g.Risk 3.6 3.2 2X Avg.Risk 6.2 5.0 3X Avg.Risk 8.0 6.1 LDL Cholesterol Calc 94 mg/dL (Normal) Range: 0-99 VLDL Cholesterol Gabriel 17 mg/dL (Normal) Range: 5-40 HDL Cholesterol 72 mg/dL (Normal) Triglycerides 86 mg/dL (Normal) Range: 0-149 Cholesterol, Total 183 mg/dL (Normal) Range: 100-199 86-Ppx-195813:15 CBC W/AUTO DIFF WBC (29325) Comments: PATIENT WAS FASTINGPERFORMED BY: TSCA Awzeot5139 [facility] [id number] Immature Grans (Abs) 0.0 {x10E3/uL} (Normal) Range: [...] 3.77-5.28 WBC 6.8 {x10E3/uL} (Normal) Range: 3.4-10.8 :35 URINE MADAY CULTURE-IDENTIFICATN Comments: PATIENT NOT FASTINGPERFORMED BY: [facility] Mqluyx9605 [facility] [id number] Information: SRC: (07063) Antimicrobial MIHEAD (Normal) Comments: S = Susceptible; [...] . (Abnormal) Urine Final report Culture,Comprehensive (Abnormal) 04-Vgm-470613:51 Urinalysis, Office (40791) UA - LEUKOCYTE ESTERASE Moderate (Normal) UA [...] Microscopic Examination Comments: PATIENT WAS FASTINGPERFORMED BY: [facility]6370 [facility] [id number] Bacteria None seen (Normal) Mucus Threads Present (Normal) Cast Type Hyaline casts (Normal) Casts Present {/lpf} (Abnormal) Epithelial Cells (non renal) 0-10 {/hpf} (Normal) Range: 0 - 10 RBC None seen {/hpf} (Normal) Range: 0 - 2 WBC 0-5 {/hpf} (Normal) Range: 0 - 5 :38 TSH (94395) Comments: PATIENT WAS FASTINGPERFORMED BY: [facility]6370 [facility] [id number] TSH 2.710 {uIU/mL} (Normal) Range: 0.450-4.500 :38 T4, FREE (THYROXINE) (58608) Comments: PATIENT WAS FASTINGPERFORMED BY: [facility]6370 [facility] [id number] T4,Free(Direct) 1.21 ng/dL (Normal) Range: 0.82-1.77 :38 T3, FREE (TRIDOTHYRONINE) (85443) Comments: PATIENT WAS FASTINGPERFORMED BY: [facility]6370 [facility] [id number] Triiodothyronine,Free,Serum 2.8 pg/mL (Normal) Range: 2.0-4.4 :38 URINALYSIS, W/ MICRO (88368) Comments: PATIENT WAS FASTINGPERFORMED BY: [facility]6370 [facility] [id number] Microscopic Examination See below: (Normal) Comments: Microscopic was indicated and was performed. Microscopic Examination MICRON (Normal) Comments: Microscopic follows if indicated. Nitrite, Urine Negative (Normal) Urobilinogen,Semi-Qn 0.2 mg/dL (Normal) Range: 0.2-1.0 Bilirubin Negative (Normal) Occult Blood Negative (Normal) Ketones Negative (Normal) Glucose Negative (Normal) Protein Negative (Normal) WBC Esterase Negative (Normal) Appearance Clear (Normal) Urine-Color Yellow (Normal) pH 7.0 (Normal) Range: 5.0-7.5 Specific Bartley 1.017 (Normal) Range: 1.005-1.030 :38 MICROALBUMIN: CREATININE RATIO Comments: PATIENT WAS FASTINGPERFORMED BY: ShrinkTheWebNew Bridge Medical CenterKccruy4010 [facility] [id number] (34002) AND (12773) Microalb/Creat Ratio 5.3 {mg/g_creat} (Normal) Range: 0.0-30.0 Microalbumin, Urine 4.6 ug/mL (Normal) Creatinine, Urine 87.1 mg/dL (Normal) :38 METABOLIC PANEL, COMPREHENSIVE Comments: PATIENT WAS FASTINGPERFORMED BY: VisionnaireNew Bridge Medical CenterWrykzf2083 [facility] [id number] (36469) ALT (SGPT) 14 [iU]/L (Normal) Range: 0-32 [...] Range: 65-99 :38 CBC W/AUTO DIFF WBC (61736) Comments: PATIENT WAS FASTINGPERFORMED BY: [facility]an [facility] [id number] Immature Grans (Abs) 0.0 {x10E3/uL} (Normal) Range: [...] {x10E3/uL} (Normal) Range: 3.4-10.8 :38 LIPID PANEL (01941) Comments: PATIENT WAS FASTINGPERFORMED BY: [employer] [facility] [id number] LDL/HDL Ratio 1.4 {ratio_units} (Normal) Range: 0.0-3.2 [...] 187 mg/dL (Normal) Range: 100-199 :38 CALCIFIDIOL (34075) VIT D 25 Comments: PATIENT WAS FASTINGPERFORMED BY: [employer] [facility] [id number] Vitamin D, 25-Hydroxy 49.1 ng/mL (Normal) Range: 30.0-100.0 Comments: Vitamin D deficiency has been defined by the [place] of[place]icine and an Endocrine Society practice guideline as alevel of serum 25-OH vitamin D less than 20 ng/mL (1,2).The Endocrine Society went on to further define vitamin Dinsufficiency as a level between 21 and 29 ng/mL (2).1. IOM ([place] of Medicine). 2010. Dietary reference intakes for calcium and D. [place]: The National Academies Press.2. Dung MF, Ken NC, Diego ELMORE, et al. Evaluation, treatment, and prevention of vitamin D deficiency: an Endocrine Society clinical practice guideline. JCEM. 2010; 96(7):1911-30. :11 URINE MADAY CULTURE-IDENTIFICATN Comments: PATIENT NOT FASTINGPERFORMED BY: [facility]CoNew Bridge Medical CenterNpxhwf6850 [facility] [id number] Information: SRC:UC (09490) Result 1 MUG (Normal) Comments: Mixed urogenital flora25,000-50,000 colony forming units per mL Urine Final report (Normal) Culture,Comprehensive 22-Sju-51094:26 Urinalysis, Office (62589) UA - LEUKOCYTE ESTERASE Small (Normal) UA - NITRITE Negative (Normal) URINE UROBILINGN FARIBA TIMED Normal mg/dL (Normal) UA - PROTEIN Negative mg/dL (Normal) UA - PH 7 (Normal) UA - BLOOD Negative (Normal) UA - SPECIFIC GRAVITY 1.025 (Normal) UA - KETONES Negative mg/dL (Normal) UA - BILIRUBIN Negative (Normal) UA - GLUCOSE Negative (Normal) :24 Fecal Occult Blood , Office (42569) Fecal Occult Blood , Office (Inhouse) negative (Normal) :54 Fecal Occult Blood , Office (29925) Fecal Occult Blood , Office (Inhouse) positive (Normal) :24 Angiotensin Convert Enzyme Comments: [facility] (refer to report for specific site)refer to report for address and phone number ART [phone] 52 U/L (Normal) Range: 14-82 Comments: Performed at: [address] [id number] Director: John Paul Burrows PhD, Phone: [phone] 38-Hyi-657657:24 Erythrocyte Sed Rate Comments: [facility] Cvxbccwpvx2722 [place], [place], [id number] SED RATE 9 mm/h (Normal) Range: 0-30 98-Zlh-31686:06 Microscopic Examination Comments: PATIENT WAS FASTINGPERFORMED BY: [address] [id number] Bacteria Moderate (Abnormal) Mucus Threads Present (Normal) Epithelial Cells (non renal) 0-10 {/hpf} (Normal) Range: 0 - 10 RBC 0-2 {/hpf} (Normal) Range: 0 - 2 WBC 11-30 {/hpf} (Abnormal) Range: 0 - 5 :06 CALCIFEDIOL (64794) Comments: PATIENT WAS FASTINGPERFORMED BY: [address] [id number] Vitamin D, 25-Hydroxy 48.3 ng/mL (Normal) Range: 30.0-100.0 Comments: Vitamin D deficiency has been defined by the [place] of[place]icine and an Endocrine Society practice guideline as alevel of serum 25-OH vitamin D less than 20 ng/mL (1,2).The Endocrine Society went on to further define vitamin Dinsufficiency as a level between 21 and 29 ng/mL (2).1. IOM ([place] of [place]). 2010. Dietary reference intakes for calcium and D. [place]: The National Academies Press.2. Dung MF, Ken MCFARLAND, Diego ELMORE, et al. Evaluation, treatment, and prevention of vitamin D deficiency: an Endocrine Society clinical practice guideline. JCEM. 2010; 96(7):1911-30. :06 TSH (THYROID STIMULATING Comments: PATIENT WAS FASTINGPERFORMED BY: [employer] [place] [id number] HORMONE) (18796) TSH 3.690 {uIU/mL} (Normal) Range: 0.450-4.500 :06 URINALYSIS (03458) Comments: PATIENT WAS FASTINGPERFORMED BY: [facility] [id number] Microscopic Examination See below: (Normal) Comments: Microscopic was indicated and was performed. Nitrite, Urine Negative (Normal) Urobilinogen,Semi-Qn 0.2 mg/dL (Normal) Range: 0.2-1.0 Bilirubin Negative (Normal) Occult Blood Negative (Normal) Ketones Negative (Normal) Glucose Negative (Normal) Protein Negative (Normal) WBC Esterase 3+ (Abnormal) Appearance Clear (Normal) Urine-Color Yellow (Normal) pH 7.5 (Normal) Range: 5.0-7.5 Specific Bartley 1.017 (Normal) Range: 1.005-1.030 :06 Lipid Panel (03669) Comments: PATIENT WAS FASTINGPERFORMED BY: [employer]6370 [facility] [id number] LDL/HDL Ratio 1.5 {ratio_units} (Normal) Range: 0.0-3.2 [...] Panel, Comprehensive Comments: PATIENT WAS FASTINGPERFORMED BY: [employer] LabIntelliGeneScanrp Mqbncy2600 [facility] [id number] (22941) ALT (SGPT) 13 [iU]/L (Normal) Range: 0-32 [...] Glucose, Serum 93 mg/dL (Normal) Range: 65-99 :06 CBC WITH MANUAL DIFF Comments: PATIENT WAS FASTINGPERFORMED BY: LabCoNew Bridge Medical CenterQkidol2827 [facility] [id number] Information: [id number] (85987) Immature Grans (Abs) 0.0 {x10E3/uL} (Normal) Range: [...] CREATININE RATIO Comments: PATIENT WAS FASTINGPERFORMED BY: [facility]6370 [facility] [id number] (30457) AND (54388) Microalb/Creat Ratio 4.3 {mg/g_creat} (Normal) Range: 0.0-30.0 Microalbumin, Urine 3.4 ug/mL (Normal) Creatinine, Urine 78.2 mg/dL (Normal) 1-Qlw-666029:22 ANGTENSIN 1-CONVRT ENZYM Comments: PATIENT NOT FASTINGPERFORMED BY: [place] 6541470 [facility] [id number] Information: [id number] (74979) ART 61 U/L (Normal) Range: 14-82 7-Guy-768592:22 SED RATE ERYTHROCYTE (64139) Comments: PATIENT NOT FASTINGPERFORMED BY: [place] 6541470 [facility] [id number] Sedimentation Rate-Westergren 7 mm/h (Normal) Range: 0-40 4-Vka-522492:22 C-REACTIVE PROTEIN (03822) Comments: PATIENT NOT FASTINGPERFORMED BY: [place] 6541470 [facility] [id number]; non- emergent till apt C-Reactive Protein, Quant 2.2 mg/L (Normal) Range: 0.0-4.9 19-Vmu-641375:13 Rapid Flu (94018 x 2) Influenza A Ag negative a/b (Normal) 0-Vpn-105374:37 URINE MADAY CULTURE (FARIBA Comments: PATIENT NOT FASTINGPERFORMED BY: [address] [id number] Information: SRC:[facility] [id number] COL COUNT) (83456) Result 1 MUG (Normal) Comments: Mixed urogenital flora2,000 Colonies/mL Urine Culture,Comprehensive Final report (Normal) 4-Suu-785934:15 Urinalysis, Office (91409) UA - LEUKOCYTE ESTERASE Negative (Normal) UA - NITRITE Negative (Normal) URINE UROBILINGN FARIBA TIMED Normal mg/dL (Normal) UA - PROTEIN Negative mg/dL (Normal) UA - PH 6 (Abnormal) UA - BLOOD Negative (Normal) UA - SPECIFIC GRAVITY 1.020 (Normal) UA - KETONES Negative mg/dL (Normal) UA - BILIRUBIN Negative (Normal) UA - GLUCOSE Negative (Normal) 32-Kgi-73213:42 Comprehensive Metabolic Profil Comments: [facility] Bdsbiuquca[address] [place], [place], [id number] GAP 4 (Abnormal) Range: 5-15 CO2 30.0 [...] 7-18 GLU 93 mg/dL (Normal) Range: 70-110 88-Hdr-11947:42 Lipid Profile Comments: [facility] Umayryfmbl[address] [place], [place], [address] ; non-emergent till apt VLDL 35 mg/dL [...] 200-240 mg/dL Borderline >240 mg/dL High Risk 23-Rdj-74691:42 Vitamin D,25 Hydroxy Comments: [facility] Vafthhuwbp8[address] [place], [address] Vitamin D 25-OH 31.7 ng/mL (Normal) Comments: Vitamin D 25(OH) Status Range Deficiency <20 ng/mL (50nmol/L) Insuffciency 20 - 30 ng/mL (50 - 75 nmol/L) Sufficiency 30 - 100 ng/mL (75 - 250 nmol/L) Toxicity >100 ng/mL (>250 nmol/L) 70-Rtx-180663:26 Pap IG (Image Comments: Source.............Cervical;EndocervicalNo. of containers..01 CYTYC Thin Prep VialPATIENT NOT FASTINGPERFORMED BY: =G Check-Cap[address] [id number] BY: WB L Guided) [address] [id number] Note: PAPSMR (Normal) Comments: The Pap smear [...] for malignant neoplasm of the cervixRenetta Medina Real Estate Firm Manager (ASCP) 64-Eqv-160077:26 Thin Prep Pap Comments: Source.............Cervical;EndocervicalNo. of containers..01 CYTYC Thin Prep VialPATIENT NOT FASTINGPERFORMED BY: =G Lab[address] [id number] BY: WB L (34880) abCmargret MunozIdphmznotg512 [facility] [id number] Information: [id number] Age Gdln ACOG Testing AGE4 (Normal) Comments: <21 or >65 or no age provided 29-Igo-42196:08 Rapid Strep Test, Office (31302) Comments: neg Rapid Strep Test, Office Negative (Normal) 83-Xgu-29707:26 Microscopic Examination Comments: PATIENT WAS FASTINGPERFORMED BY: [employer] Fsogjh5724 [facility] [id number] Bacteria None seen (Normal) Mucus Threads Present (Normal) Epithelial Cells (non renal) 0-10 {/hpf} (Normal) Range: 0 - 10 RBC 0-2 {/hpf} (Normal) Range: 0 - 2 WBC 0-5 {/hpf} (Normal) Range: 0 - 5 84-Lzx-000587:02 URINE MADAY CULTURE-FARIBA COL Comments: PERFORMED BY: [employer] Gwlqpu4444 [facility] [id number] COUNT (73524) Result 1 MUG (Normal) Comments: Mixed urogenital flora10,000-25,000 colony forming units per mL Urine Final report (Normal) Culture,Comprehensive 76-Qsk-775992:00 Urinalysis, Office (54561) UA - LEUKOCYTE ESTERASE Negative (Normal) UA [...] METABOLIC PANEL, Comments: PATIENT WAS FASTINGPERFORMED BY: [employer] Ywikov0791 [facility] [id number] Information: [id number], [id number] COMPREHENSIVE (87674) ALT (SGPT) 27 [iU]/L (Normal) Range: 0-32 [...] Glucose, Serum 88 mg/dL (Normal) Range: 65-99 83-Vfb-23687:26 URINALYSIS, W/ MICRO (62782) Comments: PATIENT WAS FASTINGPERFORMED BY: [facility]6370 [facility] [id number] Microscopic Examination See below: (Normal) Comments: Microscopic was indicated and was performed. Microscopic Examination MICRON (Normal) Comments: Microscopic follows if indicated. Nitrite, Urine Negative (Normal) Urobilinogen,Semi-Qn 0.2 mg/dL (Normal) Range: 0.0-1.9 Bilirubin Negative (Normal) Occult Blood Negative (Normal) Ketones Negative (Normal) Glucose Negative (Normal) Protein Negative (Normal) WBC Esterase Negative (Normal) Appearance Clear (Normal) Urine-Color Yellow (Normal) pH 7.0 (Normal) Range: 5.0-7.5 Specific Bartley 1.023 (Normal) Range: 1.005-1.030 :26 TSH (25612) Comments: PATIENT WAS FASTINGPERFORMED BY: [facility]6370 [facility] [id number] TSH 3.170 {uIU/mL} (Normal) Range: 0.450-4.500 :26 Vitamin D Hydroxy (00803) Comments: PATIENT WAS FASTINGPERFORMED BY: [facility]6370 [facility] [id number] Vitamin D, 25-Hydroxy 34.3 ng/mL (Normal) Range: 30.0-100.0 Comments: Vitamin D deficiency has been defined by the [place] of[place]icine and an Endocrine Society practice guideline as alevel of serum 25-OH vitamin D less than 20 ng/mL (1,2).The Endocrine Society went on to further define vitamin Dinsufficiency as a level between 21 and 29 ng/mL (2).1. IOM ([place] of Medicine). 2010. Dietary reference intakes for calcium and D. [place]: The National Academies Press.2. Dung MF, Ken NC, Diego ELMORE, et al. Evaluation, treatment, and prevention of vitamin D deficiency: an Endocrine Society clinical practice guideline. JCEM. 2010; 96(7):1911-30. :26 LIPID PANEL (18716) Comments: PATIENT WAS FASTINGPERFORMED BY: [facility]6370 [facility] [id number]; will review at 04/11 appt LDL/HDL Ratio [...] (Abnormal) Range: 100-199 :31 Vitamin D Hydroxy (17737) Comments: PATIENT WAS FASTINGPERFORMED BY: [employer] Uxnabb8838 [facility] [id number] Vitamin D, 25-Hydroxy 35.2 ng/mL (Normal) Range: 30.0-100.0 Comments: Vitamin D deficiency has been defined by the [place] of[place] and an Endocrine Society practice guideline as alevel of serum 25-OH vitamin D less than 20 ng/mL (1,2).The Endocrine Society went on to further define vitamin Dinsufficiency as a level between 21 and 29 ng/mL (2).1. IOM ([place] of [place]). 2010. Dietary reference intakes for calcium and D. [place]: The National Academies Press.2. Dung MF, Ken NC, Diego ELMORE, et al. Evaluation, treatment, and prevention of vitamin D deficiency: an Endocrine Society clinical practice guideline. JCEM. 2010; 96(7):1911-30. :31 TSH (77231) Comments: PATIENT WAS FASTINGPERFORMED BY: [employer] Jsalmw1950 [facility] [id number] TSH 3.100 {uIU/mL} (Normal) Range: 0.450-4.500 :31 MICROALBUMIN: CREATININE RATIO Comments: PATIENT WAS FASTINGPERFORMED BY: [employer] Tpozhu2340 [facility] [id number] (04095) AND (21873) Microalb/Creat Ratio 2.0 {mg/g_creat} (Normal) Range: 0.0-30.0 Microalbumin, Urine 3.8 ug/mL (Normal) Range: 0.0-17.0 Creatinine, Urine 189.7 mg/dL (Normal) Range: 15.0-278.0 :31 CBC WITH MANUAL DIFF Comments: PATIENT WAS FASTINGPERFORMED BY: [employer] Lixpgv5627 [facility] [id number] Information: [id number] (72269) Immature Grans (Abs) 0.0 {x10E3/uL} (Normal) Range: [...] PANEL, COMPREHENSIVE Comments: PATIENT WAS FASTINGPERFORMED BY: LabCoNew Bridge Medical CenterNwpldn9224 [facility] [id number] (71730) ALT (SGPT) 11 [iU]/L (Normal) Range: 0-32 [...] Glucose, Serum 96 mg/dL (Normal) Range: 65-99 78-Zcc-18520:31 LIPID PANEL (84205) Comments: PATIENT WAS FASTINGPERFORMED BY: [employer] [facility] [id number] LDL/HDL Ratio 1.4 {ratio_units} (Normal) Range: 0.0-3.2 LDL Cholesterol Calc 89 mg/dL (Normal) Range: 0-99 VLDL Cholesterol Gabriel 30 mg/dL (Normal) Range: 5-40 HDL Cholesterol 62 mg/dL (Normal) Comments: According to ATP-III Guidelines, HDL-C >59 mg/dL is considered anegative risk factor for CHD. Triglycerides 149 mg/dL (Normal) Range: 0-149 Cholesterol, Total 181 mg/dL (Normal) Range: 100-199 72-Uyn-604187:14 URINE MADAY CULTURE (FARIBA Comments: PATIENT NOT FASTINGPERFORMED BY: Heysan RoadDublin [place] [id number] Information: SRC:UR [id number] COL COUNT) (18432) Result 1 MUG (Normal) Comments: Mixed urogenital Colonies/mL Urine Culture,Comprehensive Final report (Normal) 13-Kcc-883556:18 URINE MADAY CULTURE-IDENTIFICATN Comments: PATIENT NOT FASTINGPERFORMED BY: [facility] Kxjjvz2320 [facility] [id number] Information: [id number] (13584) Antimicrobial MIHEAD (Normal) Comments: S = Susceptible; [...] mL (Abnormal) Urine Final report Culture,Comprehensive (Abnormal) 67-Jzp-697193:09 Urinalysis, Office (02455) UA - LEUKOCYTE ESTERASE Moderate (Normal) UA - NITRITE Negative (Normal) URINE UROBILINGN FARIBA TIMED Normal mg/dL (Normal) UA - PROTEIN Negative mg/dL (Normal) UA - PH 5.0 (Normal) UA - BLOOD Hemolyzed Large (Normal) UA - SPECIFIC GRAVITY 1.020 (Normal) UA - KETONES Negative mg/dL (Normal) UA - BILIRUBIN Negative (Normal) UA - GLUCOSE Negative (Normal) 77-Bik-866298:37 URINE MADAY CULTURE-IDENTIFICATN Comments: PATIENT NOT FASTINGPERFORMED BY: [facility]6370 [facility] [id number] Information: SRC: URINE [id number] (62436) Antimicrobial MIHEAD (Normal) Comments: S = Susceptible; [...] mL (Normal) Urine Final report Culture,Comprehensive (Normal) 70-Yoj-656227:10 Urinalysis, Office (04521) UA - BILIRUBIN Negative (Normal) UA - BLOOD Hemolyzed Moderate (Normal) UA - GLUCOSE Negative (Normal) UA - KETONES Negative mg/dL (Normal) UA - LEUKOCYTE ESTERASE Large (Normal) UA - NITRITE Negative (Normal) UA - PH 6.0 (Normal) UA - PROTEIN Negative mg/dL (Normal) UA - SPECIFIC GRAVITY 1.025 (Normal) URINE UROBILINGN FARIBA TIMED Normal mg/dL (Normal) 36-Wbu-854395:14 HPV automatic Comments: Source.............Cervical;EndocervicalNo. of containers..01 CYTYC Thin Prep VialPATIENT NOT FASTINGPERFORMED BY: WB [facility] [address] [id number] BY: =G L (90244) [facility] Ehctnanhhj770 [facility] [id number] Information: [id number] HPV, high-risk Negative Comments: This high-risk HPV [...] t) are present.V72.31 ; Routine gynecological examinationHuberti Mathew, Real Estate Firm Manager (ASCP) 22-Ral-180778:45 FECAL OCCULT HGB ASSAY- tubes sent home (55261) FECAL OCCULT HGB ASSAY, QUAL, 1-3 SIMULTANEOU negative (Normal) 52-Tpz-982660:37 CBC WITH MANUAL DIFF Comments: PATIENT WAS FASTINGPERFORMED BY: LabCoNew Bridge Medical CenterVlpjid4290 [facility] [id number] Information: [id number] (58347) Immature Grans (Abs) 0.0 {x10E3/uL} (Normal) Range: [...] 3.77-5.28 WBC 7.5 {x10E3/uL} (Normal) Range: 3.4-10.8 :37 METABOLIC PANEL, COMPREHENSIVE Comments: PATIENT WAS FASTINGPERFORMED BY: [employer] [place] [id number] (76733) ALT (SGPT) 21 [iU]/L (Normal) Range: 0-32 [...] (Normal) Range: 65-99 :37 Vitamin D Hydroxy (18877) Comments: PATIENT WAS FASTINGPERFORMED BY: [employer] [place] [id number] Vitamin D, 25-Hydroxy 35.3 ng/mL (Normal) Range: 30.0-100.0 Comments: Vitamin D deficiency has been defined by the [place] of[place]icine and an Endocrine Society practice guideline as alevel of serum 25-OH vitamin D less than 20 ng/mL (1,2).The Endocrine Society went on to further define vitamin Dinsufficiency as a level between 21 and 29 ng/mL (2).1. IOM ([place] of Medicine). 2010. Dietary reference intakes for calcium and D. [place]: The National AcademTechnology Underwriting the Greater Good (TUGG) Press.2. Dung MF, Ken MCFARLAND, Diego ELMORE, et al. Evaluation, treatment, and prevention of vitamin D deficiency: an Endocrine Society clinical practice guideline. JCEM. 2010; 96(7):1911-30. 19-Krv-431770:37 TSH (40119) Comments: PATIENT WAS FASTINGPERFORMED BY: [facility] Wukcvu8830 [facility] [id number] TSH 2.590 {uIU/mL} (Normal) Range: 0.450-4.500 19-Jri-586346:37 LIPID PANEL (38556) Comments: PATIENT WAS FASTINGPERFORMED BY: [facility] Yxvamb5447 [facility] [id number] LDL/HDL Ratio 2.0 {ratio_units} (Normal) Range: 0.0-3.2 LDL Cholesterol Calc 141 mg/dL (Abnormal) Range: 0-99 VLDL Cholesterol Gabriel 25 mg/dL (Normal) Range: 5-40 HDL Cholesterol 72 mg/dL (Normal) Comments: According to ATP-III Guidelines, HDL-C >59 mg/dL is considered anegative risk factor for CHD. Triglycerides 125 mg/dL (Normal) Range: 0-149 Cholesterol, Total 238 mg/dL (Abnormal) Range: 100-199 :01 BILAT SCRN DIGITAL & CAD Radiology Report [...] Durant M.D.April 21, 2013 at 3:29:39 PM [id number] Signed RU/RU If you are the referring physician and would like to consult with theradiologist who provided this interpretation, please contact Tricia Camarena at [phone]. If this radiologist is unavailable, youwillbe directed to another radiologist to assist. If you are a patient with a question regarding this report, pleasecontactyour referring physician direct ly. Professional Interpretation Provided By: [employer], Phone , These documents contain legally protected [...] by Frank Durant on 04/21/131537 Sign by: BhargavFrank :18 CBCMD ANC 3.5 3/uL (Normal) Range: 2.0-7.7 [...] CHOL 194 mg/dL (Normal) Comments: <200 mg/dL Mdcsnxcdu785-606 mg/dL Borderline>240 mg/dL High Risk :18 TSH 2.02 {uIU/mL} (Normal) Range: 0.358-3.74 :18 VITD 56.0 ng/mL (Normal) Comments: Vitamin D 25(OH) Status RangeDeficiency <20 ng/mL (50nmol/L)Insufficiency 20 - 30 ng/mL (50 - 75 nmol/L)Sufficiency 30 - 100 ng/mL (75 - 250 nm ol/L)Toxicity >100 ng/mL (250 nmol/L)Effective 2012:39 Aerobic Bacterial Culture Comments: PERFORMED BY: LabCoNew Bridge Medical CenterStvacw2179 [facility] [id number] Information: SRC:CH RIGHT CHEST Result 1 NG36 (Normal) Comments: [...] 200-240 mg/dL Borderline >240 mg/dL High Risk 72-Mca-23640:33 VITD 38.8 ng/mL (Normal) Range: 30.0-100.0 Comments: Vitamin D deficiency has been defined by the [place] of[place]icine and an Endocrine Society practice guideline as alevel of serum 25-OH vitamin D less than 20 ng/mL (1,2).The Endocrine Society went on to further define vitamin Dinsufficiency as a level between 21 and 29 ng/mL (2).1. IOM ([place] of Medicine). 2010. Dietary reference intakes for calcium and D. [place]: The National AcademTechnology Underwriting the Greater Good (TUGG) Press.2. Dung MF, Ken NC, Diego ELMORE, et al. Evaluation, treatment, and prevention of vitamin D deficiency: an Endocrine Society clinical practice guideline. JCEM. 2010; 96(7): 1911-30.Performed at: [address] [id number] Director: Amari Barnett PhD, Phone: [phone] 4-Dod-247323:36 BILAT SCRN DIGITAL & CAD Radiology Report [...] Khan M.D.April 05, 2012 at 3:13:08 PM [id number] Signed GP/GP If you are the referring physician and would like to consult with theradiologist who provided this interpretation, please contact Tricia Butler at [phone]. If this radiologist is unavailable, youwill be directed to another radiologist to assist. If you are a patient with a questi on regarding this report, pleasecontactyour referring physician directly. Professional Interpretation Provided By: [employer], Phone , These documents contain legally prot [...] Khan MD on 04/05/12 1519 Sign by: Cruzito Khan MD 20-Klo-746278:06 HEPATOBILLIARY IMG W/PHARM INT Radiology Report See [...] Cholecystokinin (0.02 ug/kg) was administered intravenously over f82-rhdsrj period. T he post CCK gallbladder ejection fraction bmqtudplqdrw03 minutes following Cholecystokinin administration was noted to [...] Villalobos et al,Journal of Nuclear Medicine 32:1695, 1990). Signed: Frank Bustos M.D.March 31, 2012 at 9:50:05 AM [id number] Signed RB/RB If you are the referring physician and would like to consult with theradiologist who provided this interpretati on, please contact Tricia Hood at [phone]. If this radiologist is unavailable, you will bedirected to another radiologist to assist. If you are a patient with a question regarding this report , pleasecontactyour referring physician directly. Professional Interpretation Provided By: [employer], Phone , These documents contain legally protected [...] on 03/31/12 1157 by ITS IMPORTSign by Farnk Bustos DO on 03/31/12 1158 Sign by: Frank Bustos DO 00-Bue-00886:09 GALLBLADDER Comments: f/u 03/19/12 Radiology Report See [...] size of the right kidney. The right umlytzykxjirww39.4 cm. Normal renal cortex. The right cortex measures 1.5 cm. Thereisa 7 mm x 6 mm x 5 mm cyst in t he upper pole. There is no righthydronephrosis. IMPRESSION:Mild dilatation of the common bile duct. Signed:Cruzito Khan M.D.March 18, 2012 at 10:37:07 AM [id number] Signed GP/G P If you are the referring physician and would like to consult with theradiologist who provided this interpretation, please contact Tricia Btuler at [phone]. If this radiologist is unavai lable, youwill be directed to another radiologist to assist. If you are a patient with a question regarding this report, pleasecontactyour referring physician directly. Professional Interpretation Provi ded By: [employer], Phone , Dictated on 03/18/12 0815 by Laurent Khan MDribed on 03/18/12 1043 by ITS IMPORTSign by Cruzito Khan MD on 03/18/12 1043 Sign by: Cruzito Khan MD 16-Mar-2012 TUYET 58 U/L (Normal) Comments: DR VIERA ORDERED TSH, CMP, LIPID, CBCMD, UAC 10:19 Range: 25-115 28-Zgu-273490:19 CBCMD Comments: DR VIERA ORDERED TSH, CMP, [...] 4.2-5.4 WBC 7.1 K/mm3 (Normal) Range: 4.4-11.0 98-Lti-511716:19 CMP Comments: DR VIERA ORDERED TSH, CMP, [...] 7-18 GLU 98 mg/dL (Normal) Range: 70-110 96-Gpq-783171:19 LIPASE 259 U/L (Normal) Comments: DR VIERA ORDERED TSH, CMP, LIPID, CBCMD, UAC Range: 70-290 33-Mgf-332096:19 LIPID Comments: DR VIERA ORDERED TSH, CMP, [...] 200-240 mg/dL Borderline >240 mg/dL High Risk 98-Ilg-685267:19 TSH 1.91 {uIU/mL} (Normal) Comments: DR VIERA ORDERED TSH, CMP, LIPID, CBCMD, UAC Range: 0.358-3.74 61-Yud-637364:19 UAC Comments: DR VIERA ORDERED TSH, CMP, [...] (Normal) UCOL YELLOW (Normal) :39 Urinalysis, Office (60990) UA - BILIRUBIN Negative (Normal) UA - BLOOD Negative (Normal) UA - GLUCOSE Negative (Normal) UA - KETONES Negative mg/dL (Normal) UA - LEUKOCYTE ESTERASE Trace (Normal) UA - NITRITE Negative (Normal) UA - PH 6.0 (Normal) UA - PROTEIN Negative mg/dL (Normal) UA - SPECIFIC GRAVITY 1.015 (Normal) URINE UROBILINGN FARIBA Normal mg/dL (Normal) TIMED 79-Jds-365620:02 CUT See Note (Normal) Comments: Normal throat bhavesh isolated. No beta-hemolyticstreptococcus isolated. 60-Xkz-255639:37 Rapid Strep Test, Office (41241) Rapid Strep Test, Office Negative (Normal) :58 [...] Sign by : Shannon RAO,Marilia 27-May-2011 ART 76083 81 U/L (Abnormal) Range: 12-68 12:07 57-Pax-271589:07 XOCHILT DIR SEMI-QL Comments: appt 06/03/11 XOCHILT DIRECT 33 AU/mL (Normal) 37-Reh-408897:07 ASO 6031 94.6 {IU/mL} (Normal) Range: 0.0-200.0 Comments: Performed at: [address] [id number] Director: Leana Villar MD, Phone: [phone] :[phone] C-REACTIVE PROT 16.20 mg/L (Abnormal) Range: 0.0-3.0 [...] :07 RHEUMATOID FAC < 10.0 {IU/mL} (Normal) 27-Czb-918625:07 TSH 2.21 {uIU/mL} (Normal) Range: 0.358-3.74 36-Dda-046580:20 CHEST, PA AND LATERAL Radiology Report See [...] throat bhavesh isolated. No beta-hemolyticstreptococcus isolated. 8:38 49-Tbp-466098:34 PPD (47751) SKIN TEST INTRADERMAL TB negative (Normal) 21-Ftf-823060:23 LQDPAP [id number] PAPSMR Comment (Normal) Comments: The Pap smear [...] no HPV testing was performed. .Performed at: [address] [id number] Director: Young Pope MD, Phone: [phone] COMM . (Normal) DIAGN Comment (Normal) Comments: NEGATIVE FOR INTRAEPITHELIAL LESION AND MALIGNANCY.CELLULAR CHANGES ASSOCIATED WITH ATROPHY ARE PRESENT.THIS SPECIMEN WAS RESCREENED PART OF OUR EXCHANGE UNDERWRITING CONSULTANT PROGRAM.Satisfactory for evaluation. Endocervical component may not bedistinguished in cases of atrophy.Shayla Wright, Real Estate Firm Manager (ASC)Zahraa Orr, Supervisory Real Estate Firm Manager ([facility])This liquid based ThinPrep(R) pap test was screened withthe use of an image guided system. 85-Gdv-911587:41 BILAT SCRN DIGITAL & CAD Radiology Report [...] 02/26/11 1333 Sign by: Cruzito Khan MD 51-Zxx-983859:37 DEXA BONE DENSITY STUDY (HP) Radiology Report [...] (-0.1) / Z-score (0.5) On the lateral watch supervisor film, there is a grade 2 anterior [...] on 02/26/11 1338 by ITS IMPORTSign by Regi Khan MD on 02/26/11 1339 Sign by: Cruzito Khan MD 31-Nlo-53894:19 CBCD,SMEAR DIFF PLT EST SeeNote (Normal) Comments: [...] 4.2-5.4 WBC 7.1 K/mm3 (Normal) Range: 4.4-11.0 76-Trb-57205:19 COMP METABOLIC GAP 9 (Normal) Range: 5-15 [...] 08/19/101648 by BATSHEVA GEORGETranscribed on 1648 by JABARI ARREAGAKESSONSign by BATSHEVA GEORGE on 08/20/10 0821 Sign [...] CHOL 206 mg/dL (Abnormal) Comments: <200 mg/dL Kfusgbxjk522-128 mg/dL Borderline>240 mg/dL High Risk :26 TSH 1.24 {uIU/mL} (Normal) Range: 0.358-3.74 28-Slj-969472:19 BILAT SCRN DIGITAL & CAD Radiology Report See Note (Normal) Comments: Exam Number: [id number] DIGITAL BILATERAL MAMMOGRAM Digital oblique and craniocaudal [...] no change since priorexamination. Routine ankit [facility] mammographic followup is suggested. IMPRESSION1. Scattered bilateral microcalcifications. There has been no changesince prior examination.2. Routine annual mammographic followup is suggested.3. Benign. BIRADS Category 2. A letter regarding the results has been sent to the patient. This interpretation was rendered by a radiologist certified under theMammography Quality Standards Act of 1992 (M QSA). The mammograms werealso examined with computer-aided detection software (Dr. Scribbles, [employer] Reported By: CRUZITO KHAN :53 CBCD,SMEAR DIFF [...] :53 TSH 1.60 {uIU/mL} (Normal) Range: 0.358-3.74 55-Nuk-892413:13 CULTURE, WOUND Comments: RIGHT CHEST WALL LESION GRAM STAIN See Note (Normal) Comments: GRAM STAIN 1+ RED CELL STROMA 2+ WHITE BLOOD CELLS NO ORGANISMS SEEN :11 LQD PAP [id number] Comments: CYTOLOGY INFORMATION:- CLINICAL INFORMATION: POSTMENOPAUSAL- DATE LMP/MENOPAUSE: NOT GIVEN MENOPAUSE- COLLECTION VIAL: Thin Prep Vial- ROOM CLEANER SOURCE: CERVICAL/ENDOCERVICAL- COLLECTION TECHNIQUE: BRUSH/SPATULA ADEQ Comment [...] no HPV testing was performed. .Performed At: [address] [id number] PAPSMR Comment (Normal) Comments: The Pap smear is a screening test designed to aid in thedetection of premalignant and malignant conditions of theuterine cervix. It is not a diagnostic procedure andshould not be used as the sole means of detecting cervicalcancer. Both false-positive and false-negative reports dooccur. . PERFORM Comment (Normal) Comments: Kimberley Borges, Real Estate Firm Manager (ASCP) SIGN Comment (Normal) Comments: Wendi Elaine MD, Pathologist 2-Tcs-637845:22 BILAT SCRN DIGITAL & CAD Radiology Report See Note (Normal) Comments: Exam Number: [id number] MAMMOGRAM, BILATERAL SCREENING DIGITAL AND CAD HISTORYRoutine [...] werealso examined with computer- aided detection software ([employer], [employer] Reported By: SEAN AMAYA M.D. 8-Wxn-131352:21 DEXA BONE DENSITY STUDY (HP) Radiology Report See Note (Normal) Comments: Exam Number: [id number] BONE DENSITOMETRY HISTORYPostmenopausal. TECHNIQUE Bone densitometry of the lumbar spine and left hip was performed. Thebest criteria for evaluation of osteoporosis is the T- value, whichrepresents the comparison of the patient's bone mass to an expectedpeak bone mass. For most patients, the mean T-value of L1 through L4is used to evaluate the lumbar spine. Based on the [facility] WorldHealth Organization classifications, the hip is evaluated by utilizingthe lower of the T-value of the total hip or the T-value of thefemoral neck. FINDINGSIn this patient, the mean T-value o f L1 through L4 is 0.4 which isnormal. Bone mineral density is measured at 0.1% greater than ul0329. Digital lateral view for evaluation of vertebral deformityonly demonstrates no obvious compression fractures. The T-value ofthe left femoral neck is -0.8 which is normal. The T-value of thetotal hip is -0.3 which is normal. Bone mineral density is measuredat 5% less than in 2004. IMPRESSIONBone d ensitometry of the lumbar spine and left hip is within normallimits. Reported By: SEAN AMAYA M.D. 41-Tmz-97568:08 CBCD,SMEAR DIFF BAND 3 % (Normal) Range: [...] mg/dL (Normal) Range: 1.5-2.2 :08 T3, FREE 93094 2.9 pg/mL (Normal) Range: 2.3-4.2 Comments: Performed At: [address] [id number] :08 T4 FREE,DIRECT 1.0 ng/dL (Normal) Range: 0.89-1.76 :08 TSH 1.40 {uIU/mL} (Normal) Range: 0.34-4.82 55-Tnr-710294:59 LOWER EXT/JT ONLY (ROUTINE) Radiology Report See Note (Normal) Comments: Exam Number: [id number] MRI OF THE RIGHT KNEE STATEMENTRight knee [...] medial meniscus. Reported By: ABDULAZIZ HENRY M.D. 77-Lsm-746773:21 KNEE,4 OR MORE VIEWS (MT) Radiology Report See Note (Normal) Comments: Exam Number: [id number] RIGHT KNEE, 4 VIEWS REASON FOR EXAMINATIONRight [...] throat bhavesh isolated. No beta-hemolyticstreptococcus isolated. :30 93-Iku-621880:20 Rapid Strep Test, Office (58112) Comments: neg Rapid Strep Test, Office Negative (Normal) 65-Sqc-41526:54 CBCD,SMEAR DIFF CELLS COUNTED 100 (Normal) EOS [...] 47-70 WBC 6.4 K/mm3 (Normal) Range: 4.4-11.0 96-Xkq-88031:54 COMP METABOLIC A/G 1.1 {RATIO} (Normal) Range: [...] SED RATE 14 mm/h (Normal) Range: 0-30 :52 ABDOMEN WITH CONTRAST Radiology Report See Note (Normal) Comments: Exam Number: [id number] COMPUTED TOMOGRAPHY OF THE ABDOMEN WITH ORAL AND IV CONTRAST INDICATIONA 57-year-old female with epigastric pain, nausea. COMPARISONNone. TECHNIQUEContiguous transaxial images wer e obtained from the lung bases to thelevel of S1 following the uneventful administration of 100 cc Mwlzgp705 intravenously. Oral contrast was also administered. REPORTLimited [...] 47-70 WBC 10.3 K/mm3 (Normal) Range: 4.4-11.0 47-Ynz-21051:00 COMP METABOLIC Comments: CALL RESULTS TO DR [...] mm/h (Abnormal) Range: 0-30 :13 Urinalysis, Office (22470) UA - LEUKOCYTE ESTERASE Negative (Normal) UA [...] :57 TSH 0.83 {uIU/mL} (Normal) Range: 0.34-4.82 22-Vqn-327534:13 Urinalysis, Office (26246) Comments: done-jjp UA - BILIRUBIN Negative (Normal) UA - BLOOD Negative (Normal) UA - GLUCOSE Negative (Normal) UA - KETONES Negative mg/dL (Normal) UA - LEUKOCYTE ESTERASE Negative (Normal) UA - NITRITE Negative (Normal) UA - PH 5.0 (Normal) UA - PROTEIN Negative mg/dL (Normal) UA - SPECIFIC GRAVITY 1.005 (Normal) URINE UROBILINGN FARIBA TIMED Normal mg/dL (Normal) :44 Urinalysis, Office (90935) Comments: done UA - BLOOD Hemolyzed Large [...] : Follow up in 6 months-- after 10/30 can add medicare physical to this gen [...] neuritis or radiculitis, unspecified Planned Observations TSH (05121)Indication: Acquired hypothyroidism On: :35 Request URINALYSIS, W/ MICRO (93385)Indication: Essential hypertension On: :34 Request MICROALBUMIN: CREATININE RATIO (47977) AND (09414)Indication: Essential hypertension On: :34 Request METABOLIC PANEL, COMPREHENSIVE (63082)Indication: Essential hypertension On: :34 Request CBC W/AUTO DIFF WBC (72701)Indication: Essential hypertension On: :34 Request LIPOPROTEIN, BLD, BY NMR (41057)Indication: Other and unspecified hyperlipidemia On: :34 Request CALCIFIDIOL (85033) VIT D 25Indication: Vitamin D deficiency, unspecified On: :34 Request URINE MADAY CULTURE-IDENTIFICATN (56309)Indication: URINARY TRACT INFECTION, SITE NOT SPECIFIED On: 92-Ssp-842137:53 Request Comments: post treatment culture Stool Guiac Test, Office (Medicare) (G0107)Indication: Hypercholesteremia On: 8-Ecs-368447:04 Request URINALYSIS, W/ MICRO (21891)Indication: Hematuria On: 96-Tuu-179982:41 Request Vitamin D Hydroxy (06219)Indication: Vitamin D deficiency, unspecified On: 03-Cyx-686701:40 Request CBC W/AUTO DIFF WBC (77000)Indication: Essential hypertension On: 25-Pdm-601215:40 Request METABOLIC PANEL, COMPREHENSIVE (76483)Indication: Essential hypertension On: 98-Idr-140001:39 Request LIPID PANEL (03881)Indication: Hypercholesteremia On: 79-Oiu-294932:39 Request TSH (14997)Indication: Acquired hypothyroidism On: 52-Kih-061077:39 Request Vitamin D Hydroxy (86351)Indication: Vitamin D deficiency, unspecified On: 54-Rbr-239735:15 Request METABOLIC PANEL, COMPREHENSIVE (60955)Indication: Essential hypertension On: 37-Csb-659655:14 Request LIPID PANEL (21037)Indication: Other and unspecified hyperlipidemia On: 07-Rfp-344252:14 Request FECAL OCCULT- Tubes sent home (75809)Indication: Encounter for screening for malignant neoplasm of cervix On: 92-Xqw-528711:09 Request Thin prep Pap (02571)Indication: Well woman exam On: 68-Jct-487429:46 Request LIPID PANEL (80739)Indication: Hypercholesteremia On: 75-Wbv-397656:23 Request MADAY CULTURE-OTHER (49428)Indication: Cellulitis On: 03-Ffc-69616:22 Request METABOLIC PANEL, COMPREHENSIVE (08803)Indication: Essential hypertension On: :04 Request CBC WITH MANUAL DIFF (63015)Indication: Essential hypertension On: :04 Request Vitamin D Hydroxy (85924)Indication: Vitamin D deficiency, unspecified On: :04 Request TSH (26433)Indication: Acquired hypothyroidism On: :04 Request LIPID PANEL (99977)Indication: Other and unspecified hyperlipidemia On: 13-Zmw-292287:04 Request Vitamin D Hydroxy (29136)Indication: Vitamin D deficiency, unspecified On: :25 Request METABOLIC PANEL, COMPREHENSIVE (99830)Indication: Essential hypertension On: :25 Request LIPID PANEL (32050)Indication: Other and unspecified hyperlipidemia On: :25 Request Amylase (93082)Indication: Abdominal pain, acute, right upper quadrant On: 98-Aoz-131399:05 Request Lipase (93720)Indication: Abdominal pain, acute, right upper quadrant On: 68-Skr-967125:05 Request THROAT CULTURE (21802)Indication: ACUTE PHARYNGITIS (462.) On: 56-Byk-723435:37 Request CALCIFEDIOL (43332)Indication: Vitamin D deficiency, unspecified On: :35 Request URINALYSIS, W/ MICRO (73715)Indication: Essential hypertension On: 95-Gba-520976:50 Request LIPID PANEL (83168)Indication: Other and unspecified hyperlipidemia On: :49 Request CBC WITH MANUAL DIFF (26818)Indication: Essential hypertension On: :49 Request METABOLIC PANEL, COMPREHENSIVE (90558)Indication: Essential hypertension On: :49 Request TSH (83026)Indication: Acquired hypothyroidism On: :49 Request SKIN TEST INTRADERMAL TB (82174)Indication: Erythema nodosum On: :49 Request Comments: Site- Left forearm MADAY CULTURE-OTHER (60680)Indication: Erythema nodosum On: :37 Request ANTISTREPTOLYSIN O-TITER (84733)Indication: Erythema nodosum On: 94-Bea-300474:33 Request TSH (83866)Indication: Fatigue On: :22 Request URINALYSIS, W/ MICRO (53466)Indication: Erythema nodosum On: :20 Request C-REACTIVE PROTEIN (49067)Indication: Erythema nodosum On: :20 Request SED RATE ERYTHROCYTE (06862)Indication: Erythema nodosum On: :20 Request METABOLIC PANEL, COMPREHENSIVE (34993)Indication: Erythema nodosum On: 97-Hxj-080545:20 Request CBC WITH MANUAL DIFF (94651)Indication: Erythema nodosum On: :20 Request XOCHILT (ANTINUCLEAR ANTIBODY) (77117)Indication: Erythema nodosum On: :19 Request RHEUMATOID FACTOR-QUANT (95393)Indication: Erythema nodosum On: :19 Request Thin prep Pap (45573)Indication: Well woman exam On: :17 Request URINALYSIS, W/ MICRO (00168)Indication: Essential hypertension On: :07 Request CBC WITH MANUAL DIFF (06774)Indication: Essential hypertension On: :07 Request LIPID PANEL (28606)Indication: Other and unspecified hyperlipidemia On: :06 Request TSH (08354)Indication: Acquired hypothyroidism On: :06 Request METABOLIC PANEL, COMPREHENSIVE (44610)Indication: Essential hypertension On: :06 Request METABOLIC PANEL, COMPREHENSIVE (29643)Indication: Essential hypertension On: 07-Zcr-128241:53 Request TSH (91174)Indication: Acquired hypothyroidism On: 60-Oqg-565336:53 Request LIPID PANEL (50693)Indication: Other and unspecified hyperlipidemia On: 07-Wbm-046279:53 Request LIPID PANEL (59628)Indication: Other and unspecified hyperlipidemia On: 47-Ebs-960484:31 Request METABOLIC PANEL, COMPREHENSIVE (54330)Indication: Essential hypertension On: 88-Upx-156699:30 Request CBC WITH MANUAL DIFF (48390)Indication: Essential hypertension On: 14-Bmp-859675:30 Request TSH (04293)Indication: Acquired hypothyroidism On: 06-Gmd-830794:30 Request MADAY CULTURE-OTHER (31785)Indication: Neoplasm of uncertain behavior of skin On: 49-Hxa-623990:26 Request Thin prep Pap (07523)Indication: Well woman exam On: 13-Kgk-149672:00 Request Magnesium (05671)Indication: Palpitations On: 99-Ecx-096465:12 Request T4, FREE (THYROXINE) (29172)Indication: Palpitations On: 91-Obo-974575:12 Request T3, FREE (TRIDOTHYRONINE) (34798)Indication: Palpitations On: 74-Qbu-620515:11 Request CBC WITH MANUAL DIFF (17242)Indication: Essential hypertension On: 50-Dmu-053068:11 Request METABOLIC PANEL, COMPREHENSIVE (13385)Indication: Essential hypertension On: 86-Ixt-991889:10 Request TSH (34583)Indication: Acquired hypothyroidism On: 34-Ktl-657492:10 Request LIPID PANEL (24224)Indication: Other and unspecified hyperlipidemia On: 33-Ouu-180022:10 Request METABOLIC PANEL, COMPREHENSIVE (92695)Indication: Essential hypertension On: 25-Dfg-916953:06 Request URINALYSIS W/O MICRO (37888)Indication: Essential hypertension On: 08-Kxk-007631:05 Request TSH (49741)Indication: Acquired hypothyroidism On: 29-Gpx-594490:05 Request HEPATIC FUNCTION PANEL (83201)Indication: Other and unspecified hyperlipidemia On: 87-Kps-118373:05 Request LIPID PANEL (86825)Indication: Other and unspecified hyperlipidemia On: 61-Ywz-218588:05 Request FERRITIN (87861)Indication: Other and unspecified hyperlipidemia On: 05-Qvr-881437:53 Request HEPATIC FUNCTION PANEL (23984)Indication: Other and unspecified hyperlipidemia On: 72-Rue-622672:53 Request LIPID PANEL (09526)Indication: Other and unspecified hyperlipidemia On: 75-Xri-473239:53 Request MADAY CULTURE-OTHER (94442)Indication: ACUTE PHARYNGITIS (462.) On: 56-Gck-518248:20 Request CBC WITH MANUAL DIFF (38151)Indication: Essential hypertension On: 24-Sdi-403961:26 Request LIPID PANEL (27355)Indication: Other and unspecified hyperlipidemia On: 47-Xku-236105:22 Request METABOLIC PANEL, COMPREHENSIVE (95439)Indication: Hyponatremia On: 93-Nty-131179:22 Request TSH (43206)Indication: Acquired hypothyroidism On: :22 Request METABOLIC PANEL, COMPREHENSIVE (08521)Indication: Hyponatremia On: 67-Wnc-550328:00 Request CBC WITH MANUAL DIFF (03371)Indication: Anemia, unspecified On: 90-Drf-685700:00 Request SED RATE ERYTHROCYTE (05560)Indication: Epigastric pain On: 65-Adb-416142:03 Request C-REACTIVE PROTEIN (82134)Indication: Epigastric pain On: 23-Jnr-657942:03 Request METABOLIC PANEL, COMPREHENSIVE (08828)Indication: Epigastric pain On: 14-Eby-359186:02 Request CBC WITH MANUAL DIFF (96952)Indication: Epigastric pain On: 41-Zyl-882152:02 Request METABOLIC PANEL, COMPREHENSIVE (94336)Indication: Essential hypertension On: 06-Tug-415558:49 Request TSH (82540)Indication: Acquired hypothyroidism On: 58-Ofv-261735:42 Request LIPID PANEL (76063)Indication: Other and unspecified hyperlipidemia On: 87-Rkr-981101:42 Request URINE MADAY CULTURE (FARIBA COL COUNT) (09008)Indication: Dysuria On: 4-Wdk-077297:04 Request LIPID PANEL (73003)Indication: Other and unspecified hyperlipidemia On: 5-Ggc-169412:05 Request MICROALBUMIN URINE QUANT (46805)Indication: Essential hypertension On: 2-Qyy-702525:05 Request TSH (31784)Indication: Acquired hypothyroidism On: 1-Dgn-059408:04 Request URINALYSIS W/O MICRO (98176)Indication: Essential hypertension On: 8-Lwq-327680:04 Request METABOLIC PANEL, COMPREHENSIVE (14434)Indication: Essential hypertension On: 9-Psn-398876:04 Request CBC WITH MANUAL DIFF (49337)Indication: Essential hypertension On: 5-Vei-057928:04 Request Planned Encounters Medical; 6 Month FU - On: 12-Jan-2019 9:45 [facility] Windy Mayorga DO, DO, Kathleen Planned Procedures ELECTROCARDIOGRAM, COMPLETE (ECG) On: 14-Jul-2018 Intent (70876)By: Windy Mayorga DO Comments: nsr no acute chg - poor R wave progression and nonspecific st flattening Windy Mayorga DO Flu Vaccine (Quadrivalent) 92441Pw: On: 11-Jun-2018 Intent Visit, Nurse Comments: Lot #:[id number] date: 2-62-57Xmebug given:0.5mlRoute: IMSite given:L DltdGiven by: Melissa and ABN signed Fluarix Ultrasound - Breast - LeftBy: Concetta On: 04-Sep-2017 Intent Windy COLYE DO, Kathleen WXXJ-MK-XNEV BEHAVIORAL COUNSELING On: 29-Jun-2017 Intent FOR OBESITY, 15 MINUTES (G0447)By: Windy Mayorga DO, DO, Kathleen DEXA SCAN AXIAL SKELETON (91805)By: On: 29-Jun-2017 Intent Windy Mayorga DO, DO, Kathleen SCREENING DIGITAL TOMOSYNTHESIS OF On: 29-Jun-2017 Intent BREAST (27532)By: Windy Mayorga DO, DO, Kathleen ELECTROCARDIOGRAM, COMPLETE (ECG) On: 29-Jun-2017 Intent (69308)By: Widny Mayorga DO Comments: nsr no acute chg Windy Mayorga DO Flu Vaccine (Quadrivalent) 66678Ej: On: 17-Jun-2017 Intent Visit, Nurse Comments: Lot #[id number]/15/18ite-L dltd, IMDose prefilled syringegiven by:DAGMAR Mathis and ABN signed MAMMOGRAM, SCREENING, BOTH BREAST On: 16-May-2016 Intent (72773)By: Windy Mayorga DO, DO, Kathleen Flu Vaccine (Quadrivalent) 62717Mw: On: 07-May-2016 Intent ConcettaWindy phipps DO Concetta COLEY, Comments: Lot:[id number]:02/27/17Dose:0.5mLRoute:IMSite:L DltdGiven By:GENTRY signed Windy ELECTROCARDIOGRAM, COMPLETE (ECG) On: 07-May-2016 Intent (51399)By: Windy Mayorga DO Comments: nsr no acute chg Concetta COLEY Windy Aerosol Treatment (62805)By: Terri On: 26-Mar-2016 Intent CLAYTON Lucretia Radiology - Chest- PA and LatBy: On: 03-Dec-2015 Intent Juve COLEY Raya A Aerosol Treatment (72369)By: Terri On: 12-Nov-2015 Intent Lucretia ARNOLD Flu Vaccine (Quadrivalent) 26306Ju: On: 07-Jun-2015 Intent Visit, Nurse Comments: Lot #[id number]-L dltd, IMDose prefilled syringegiven by:DAGMAR Mathis and DANNIELLE signed Pap Smear, Medicare (Q0091)By: Juve On: 11-Apr-2015 Intent DO Raya A MAMMOGRAM, SCREENING, BOTH BREAST On: 11-Apr-2015 Intent (34277)By: Cuauhtemoc Viera DOa A Aerosol Treatment (34370)By: Terri On: 09-Apr-2015 Intent Lucretia ARNOLD Radiology - Sacrum/CoccyxBy: Fast On: 04-Oct-2014 Intent DO Raya A ADMINISTRATION OF INFLUENZA VIRUS On: 09-Jun-2014 Intent VACCINE (G0008)By: Visit, Nurse FLU VAC, SPLIT, >3 YEARS, INTRAMUSC On: 09-Jun-2014 Intent (38466)By: Raya Viera DO Comments: Lot:[id number]:02/27/15Dose:0.5mLRoute:IMSite:L DltdGiven By:GENTRY signed MAMMOGRAM, SCREENING, BOTH BREAST On: 29-Mar-2014 Intent (07582)By: Cuauhtemoc Viera DOa A Comments: mar EKG (43183)By: Raya Viera DO On: 29-Mar-2014 Intent Comments: ekg showed normal sinus rhythym, normal axis, no acute st/t wave changes no change in the previous t wave inversions Eprescribed prescriptions (G8553)By: On: 13-Jan-2014 Intent Chucky GROVE, Donna Hilliard Eprescribed prescriptions (G8553)By: On: 26-Oct-2013 Intent Concetta DO, Windy Concetta DO, Windy Radiology - Knee - RightBy: Concetta On: 26-Oct-2013 Intent DO Windy Concetta DO, Windy Eprescribed prescriptions (G8553)By: On: 17-Aug-2013 Intent Renetta Hough CLAYTON FLU VAC, SPLIT, >3 YEARS, INTRAMUSC On: 19-Jul-2013 Intent (19686)By: Raya Viera DO Comments: lot [id number] 2014site/route L olga, IMamt 0.5mlVIS and ABN signed when applicableChelsea, TREE EXPERT ADMINISTRATION OF INFLUENZA VIRUS On: 19-Jul-2013 Intent VACCINE (G0008)By: Raya Viera DO Eprescribed prescriptions (G8553)By: On: 19-Jul-2013 Intent Jennifer Coronado Pulse Oximetry (71699)By: Randall On: 22-Apr-2013 Intent THALIA EKG (74864)By: Jennifer Coronado On: 28-Jan-2013 Intent Comments: ekg showed normal sinus rhythym, normal axis, no acute st/t wave changes MAMMOGRAM, SCREENING, BOTH BREASTS On: 28-Jan-2013 Intent (59199)By: Raya Viera DO Comments: end march Eprescribed prescriptions (G8553)By: On: 09-Sep-2012 Intent Concetta DO, Windy Concetta DO, Windy IMMUNIZ ADMNIN, 1 VAC, SNGL/COMBO On: 26-Jul-2012 Intent (39711)By: Raya Viera DO Eprescribed prescriptions (G8553)By: On: 26-Jul-2012 Intent Jennifer Coronado PNEUM VAC ADLT/IMUMNOSPR, SBC/INTRM On: 26-Jul-2012 Intent (32640)By: Raya Viera DO Comments: Lot:[id number]:Dose:0.5mLRoute:IMSite:l armGiven By:GENTRY signed Breast Screening - BilateralBy: Juve On: 29-Mar-2012 Intent Raya COLEY Nuclear Medicine - HIDA w/CPKBy: On: 19-Mar-2012 Intent Chucky GROVEDonna Ultrasound - GallbladderBy: Chucky On: 15-Mar-2012 Intent Donna GROVE Eprescribed prescriptions (G8553)By: On: 19-Dec-2011 Intent Concetta DO, Windy Concetta DO, Windy EKG (57316)By: Raya Viera DO On: 27-Oct-2011 Intent Comments: ekg showed normal sinus rhythym, normal axis, no acute st/t wave changes nonspecific old t wave inversion CT - ChestBy: Raya Viera DO On: 03-Jun-2011 Intent Comments: pe protocol-not stat but sometime this week Spirometry (31346)By: Juve COLEY, On: 26-May-2011 Intent Raya Arechiga Comments: good effort and curve normal Radiology - Chest- PA and LatBy: On: 26-May-2011 Intent Raya Viera DO DRAIN/INJECT, JOINT/BURSA (22669)By: On: 02-May-2011 Intent Windy Mayorga DO, DO, Comments: 2 cc marcaine and 1 cc kenolog Windy TDAP VACCINE >7 IM (07142)By: Juve On: 11-Apr-2011 Raya Jaimes DO Comments: Lot #: [id number] date: 05/13Amount given: 0.5 mlRoute: IMSite given: left deltoidGiven by: Hawk Pardo RN EKG (55562)By: Jennifer Coronado On: 17-Feb-2011 Intent Comments: ekg showed normal sinus rhythym, normal axis, no acute st/t wave changes nonspecific t wave inversion anteriorly- not changed- Eprescribed prescriptions (G8553)By: On: 17-Feb-2011 Intent Raya Viera DO DXA, BONE DENSITY, AXIAL SKELETON On: 17-Feb-2011 Intent (76610)By: Raya Viera DO MAMMOGRAM, SCREENING, BOTH BREASTS On: 17-Feb-2011 Intent (86426)By: Raya Viera DO Aerosol Treatment (57719)By: Juve On: 14-Aug-2010 Intent Raya COLEY Spirometry (91168)By: Cliff, On: 14-Aug-2010 Intent Comments: good effort and curve -decrease small airways Radiology - Chest- PA and LatBy: On: 14-Aug-2010 Intent Raya Viera DO Pulse Oximetry (46615)By: Cliff, On: 14-Aug-2010 Intent Comments: 96% Pulse Oximetry (81453)By: Chucky GROVE, On: 31-Jul-2010 Intent Liat Aerosol Treatment (22574)By: Chucky On: 31-Jul-2010 Intent MAINE Liat Pulse Oximetry (29988)By: Chucky GROVE On: 15-Jul-2010 Intent Liat Aerosol Treatment (16624)By: Chucky On: 15-Jul-2010 Intent MAINE Liat ELECTROCARDIOGRAM, COMPLETE (ECG) On: 24-Dec-2009 Intent ([id number])By: Donna Locke CNP MAMMOGRAM, SCREENING, BOTH BREASTS On: 25-Jun-2009 Intent ([id number])By: Raya Viera DO Wax CurettesBy: Donna Locke CNP On: 07-Jun-2009 Intent Ear Irrigation ([id number])By: Chucky On: 07-Jun-2009 Intent MAINE Liat FLU VAC, SPLIT, >3 YEARS, INTRAMUSC On: 05-Jun-2009 Intent ([id number])By: Tuyet Camejo IMMUNIZ ADMNIN, 1 VAC, SNGL/COMBO On: 05-Jun-2009 Intent ([id number])By: Tuyet Camejo Comments: Lot #[id number] deltoidgiven by:[facility] DRAIN SKIN ABSCESS, SIMPLE/SINGLE On: 13-Nov-2008 Intent ([id number])By: Donna Locke CNP Holter Moniter ([id number])By: Randall On: 12-Sep-2008 Intent THALIA Comments: placement Pt given diary and instructions she voices understanding iveth cruzn DXA, BONE DENSITY, AXIAL SKELETON On: 16-Aug-2008 Intent ([id number])By: Raya Viera DO MAMMOGRAM, SCREENING, BOTH BREASTS On: 16-Aug-2008 Intent ([id number])By: Fast DO, Raya A Holter Monitor 24 hrsBy: Fast DO, On: 16-Aug-2008 Intent Raya A EKG ([id number])By: Jennifer Coronado On: 16-Aug-2008 Intent Comments: ekg showed normal sinus rhythym, normal axis, no acute st/t wave changes t wave inversion anteriorly unchanged IMMUNIZ ADMNIN, 1 VAC, SNGL/COMBO On: 16-Jun-2008 Intent ([id number])By: Renetta Hough LPN FLU VAC, SPLIT, >3 YEARS, INTRAMUSC On: 16-Jun-2008 Intent ([id number])By: Renetta Hough LPN Comments: 0.5cc given im lt olga H.Horn SPECIMEN HNDLNG/TRNSPRT, OFFC > LAB On: 18-Jan-2008 Intent ([id number])By: Jennifer Coronado CT - AbdomenBy: Juve DO, Raya A On: 19-Jul-2007 Intent Comments: stat tonight call wet read EKG ([id number])By: THALIA Pereira On: 21-Jun-2007 Intent Comments: ekg showed normal sinus rhythym, normal axis, no acute st/t wave changesasymetric twave inversion- no change FLU VAC, SPLIT, >3 YEARS, INTRAMUSC On: 21-Jun-2007 Intent ([id number])By: THALIA Pereira Comments: Lot #:Expiration date:Amount given:Route: IMSite given:left deltoidGiven by: iveth Lot # [id number] exp 02-28-08 IMMUNIZ ADMNIN, 1 VAC, SNGL/COMBO On: 21-Jun-2007 Intent ([id number])By: THALIA Pereira FLU VAC, SPLIT, >3 YEARS, INTRAMUSC On: 06-Jul-2006 Intent ([id number])By: THALIA Peerira IMMUNIZ ADMNIN, 1 VAC, SNGL/COMBO On: 06-Jul-2006 Intent ([id number])By: THALIA Pereira Comments: Lot #:Expiration date:Amount given:Route: Site given:Given by: Instructions Name Dates Details BMI 30.0-30.9,adult : How to access health [...] Hypercholesteremia : DISCONTINUED - METABOLIC PANEL, COMPREHENSIVE (33386) Indication: Hypercholesteremia Hypercholesteremia : DISCONTINUED - LIPID PANEL (09955) Indication: Hypercholesteremia BMI 30.0-30.9,adult : How to [...] Patient Instructions Indication: Essential hypertension Visit for [facility] removal : Patient Instructions Indication: Visit for suture removal Cellulitis : Patient Instructions Indication: Cellulitis Essential hypertension : Patient Instructions Indication: Essential hypertension Encounters Office Visit On: 17-Aug-2018 13:37 Encounter Reason: [...] The patient does have durable power of sports attorney and living will. The patient has noticed nothing from the geriatic depression scale. Other providers contributing to the patient's care are beef killer and pharmacy buyer. Encounter Diagnosis: BMI 30.0-30.9,adult, Nonsmoker, Acquired hypothyroidism, [...] The patient does have durable power of sports attorney and living will. The patient has noticed [...] The patient does have durable power of sports attorney and living will. The patient has noticed [...] well no sarcoid issues bp good aniety goood and tailbone npainnot routinely agained offered referral to ortho [...] Well Women Exam: no breast mass no [id number] Encounter Diagnosis: Annual Medicare Physical (V70.0), Well [...] skiing again did pt and excited- saw mehran and did pfts and breathing improved and [...] The patient does have durable power of sports attorney and living will. The patient has noticed nothing from the geriatic depression scale. Other pr oviders contributing to the patient's care are beef killer (Dr. Candelario), gastrologist (Dr. Marion) and other: [...] for sarcoid and has followup in aug- isnt sob and has alot of energy- [...] Knee Pain: she has been back to [facility] End: 25-Feb-2012 9:37 and 3 seesions of [...] and e .nodosum is resolved- she is definitley feeling better- has followup with mehran in [...] wheezing - not sob- alot of coughing Gino Diagnosis: Cough (786.2) [facility] [...] of angina ,history of CHF ,history of [place] ,smoking ,syncope or use of decongestants. Note [...] otc now but took aleve-- did help Candy Diagnosis: Knee pain (719.46) [facility] [...] weight :. 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
--- OUTSIDE RECORDS SUMMARY | 2018-11-21 02:19 | XMS RPT_ITS | Continuity of Care Document ---
:1950 Author Organization [facility] Address [address] [facility] [address] [place] [address] Phone Care Team Providers Name Role Phone Windy Mayorga DO Unavailable Dr. 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, did not eat Status: Active Knee pain (M25.569, 719.46) Comments: R knee Status: Active Need for prophylactic vaccination and [...] (D86.9, 135) Comments: she has followup with sibilia Status: Active screening Status: Active Sinusitis, acute [...] 786.07) Status: Active Medications Name Dates Details Atenolol 25 MG Oral Tablet 1/2 (one [...] days Quantity: 60 {Capsule} Refills: 0 Ordered:17-Oct-2015 Juve COLEYRaya Start : 17-Oct-2015 Active ALIGN, 4MG (Oral [...] Start : 31-Jul-2010 End : 17-Feb-2011 Inactive KRISTINA-D 12 HOUR, 60-120MG (Oral Tablet Extended Release 12 Hour) 1 Tablet ER 12HR every 12 hrs for 0 days Quantity: 20 {Tablet_ER_12HR} Refills: 0 Ordered:05-Jun-2009 Jennifer Coronado Start : 05-Jun-2009 End : 25-Jun-2009 Inactive Comments:take one in the morning BACTRIM DS, 800-160MG (Oral Tablet) 1 (one) Tablet bid for 10 days Quantity: 20 {Tablet} Refills: 0 Ordered:04-Jun-2015 Elizabeth Mcgheesea Start : 04-Jun-2015 End : 14-Jun-2015 Inactive [...] days Quantity: 10 {Tablet} Refills: 0 Ordered:08-Mar-2015 Concetta COLEY WindyConcetta Windy Start : 08-Mar-2015 End : 18-Mar-2015 Inactive Medrol 4 MG Oral Tablet Therapy Pack 1 (one) Tab Ther Pack uad for 0 days Quantity: 1 {Package} Refills: 0 Ordered:08-Jan-2017 THALIA Pereira Start : 09-Jun-2016 End : 08-Jan-2017 Inactive Metoprolol Succinate ER 25 MG Oral Tablet Extended Release 24 Hour 1/2 Tablet daily for 0 days Quantity: 90 {Tablet} Refills: 0 Ordered:18-Mar-2018 Long Latricia ARNOLD L Start : 08-Mar-2018 End : 18-Mar-2018 Inactive Metoprolol Succinate ER 25 MG Oral Tablet Extended Release 24 Hour 1/2 Tablet daily for 0 days Quantity: 30 {Tablet} Refills: 3 Ordered:18-Mar-2018 Ronni Leblanc LPNn L Start : 08-Mar-2018 End : 18-Mar-2018 [...] 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 medrol dose eyad then go to [facility] tid. will be traveling. if not better [...] Visit Report Result: Comments: See Note; NOTES: [address] [address] OFFICE VISIT Date of Service: 10/10/17 MR#: [id number] Acct: [id number] Name: JULIET SHORT #: [id number] : 1950 Provider: [place] GONSALVES Age/Sex: 67/F Location: [facility] Status: Signed Intake Vital Signs10/10/17 Height 5 [...] 5 Days #10 10/10/17 [History Confirmed 10/10/17] [facility] Medical History Knee pain (Acute) Thyroid disease [...] the above. This note was generated with Slanissue dictation software. It may contain incorrect words, [...] GONSALVES Cosigner Signature: Date (if applicable) CC: 8-Jay-2018 Breast Limited Unilateral Result: Comments: See Note; NOTES: [facility] Imaging Services [address] [place] [address] Breast Limited Unilateral MR#: [id number] Acct: [id number] Name: JULIET SHORT Rep #: [id number] : 1950 F 67 From: Cruzito Khan MD PCP: Windy Mayorga DO Status: REG CLI Study: Breast Limited Unilateral Date of Exam: 09/07/17 Exam# [id number] Ordering Dr: Windy Mayorga DO STUDY: ULTRASOUND [...] Cruzito Khan MD at 15:14 EST Tel [phone], Service support , CC: Windy Mayorga DO Educational Administrator: Signed 03-Sep-2017 Dexa Bone Density Study (HP) Result: Comments: See Note; NOTES: [facility] Imaging Services [address] [place] [address] Dexa Bone Density Study (HP) MR#: [id number] Acct: [id number] Name: JULIET SHORT Rep #: [id number] : 1950 F 67 From: Cruzito Khan MD PCP: Windy Mayorga DO Status: REG CLI Study: Dexa Bone Density Study (HP) Date of Exam: 09/08/17 Exam# [id number] Ordering Dr: Delfina Mayorga DO STUDY: DUAL [...] Cruzito Khan MD at 8:30 EST Tel [phone], Service support , CC: Windy Mayorga DO Educational Administrator: Signed 03-Sep-2017 SCREENING MAMM (CAD), BILAT Result: Comments: See Note; NOTES: [facility] Imaging Services [address] [place] [address] SCREENING MAMM (CAD), BILAT MR#: [id number] Acct: [id number] Name: JULIET SHORT Rep #: [id number] : 1950 F 67 From: Cruzito Khan MD PCP: Windy Mayorga DO Status: REG CLI Study: SCREENING MAMM (CAD), BIL Date of Exam: 09/03/17 Exam# [id number] Ordering Dr: Windy Mayorga DO MAMMOGRAPHY - [...] delay biopsy of a clinically suspicious abnormality. [id number] Electronically Signed: Cruzito Khan MD at 14:17 EST Tel [phone], Service support , CC: Windy Mayorga DO Educational Administrator: Signed 30-Mar-2017 Inital Evaluation (1) - PT Result: Comments: See Note; NOTES: [facility] Physical Therapy [facility] [facility] [place], [place] [address] Fax REHABILITATION SERVICES INITIAL EVALUATION MR#: [id number] Acct: [id number] Name: JULIET SHORT Rep #: [id number] : 1950 67 From: Kimberley Clemente DPT Referring Dr.: Cyndy Ann DPM Status: REG RCR Insurance: MEDICARE P ART A B AARP Patient's Visit Information JULIET SHORT is a 67 year old F referred to Physical Therapy by Cyndy Ann DPM with a diagnosis of Plantar Fascitis. Date of Evaluation: 03/30/17 [facility] sical Therapist: Kimberley Clemente - Visit Plan Frequency: 2x /Week Duration: 2 Weeks Plan: Dry Needling - Subjective Subjective: Patient reports plantar fascitis on the right- has had it before and it w ent away on its own starting 3 years ago- stretches and strengthening with good shoes. This flare started in Oct when she went to [facility]- has been fighting with it since. Its affecting her lifestyle sh babak is a walker and goer. Pain is [...] and is much better. 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 For Medicare and [facility] plans, please review the plan of care and approve it. It will need to be FAXED BACK to us at [phone] for Medicare purposes. Please let me know [...] Summary (1) Result: Comments: See Note; NOTES: [facility] Physical Therapy [facility] [address] [facility] [place], [place] [address] Fax REHABILITATION SERVICES DISCHAR GE SUMMARY MR#: [id number] Acct: [id number] Name: JULIET SHORT Rep #: [id number] : 1950 66 From: Sunshine Green PT, Cert. MDT Referring Dr.: Windy Mayorga DO Status: REG RCR Insurance: MED ICARE PART A B AARP HP - PT D/C Summary It has been [...] please feel free to call me at [phone]. Thank you for the referral of this patient. Sincerely, Sunshine Arechiga Cro ss <Electronically signed by Cert. MAIRA Stone PTT> 11/26/16 1422 CC: Windy Mayorga DO TIFFANY Signed 29-Sep-2016 Inital Evaluation (1) - PT Result: Comments: See Note; NOTES: [facility] Physical Therapy [facility] [address] [facility] [place] [address] Fax REHABILITATION SERVICES INITIAL EVALUATION MR#: [id number] Acct: [id number] Name: JULIET SHORT Rep #: [id number] : 1950 66 From: Cert. MAIRA Stone PTT Referring Dr.: Windy Mayorga DO Status: REG RCR Insurance: [place] frenting PART A B AAR Patient's Visit Information [...] 2X'S A WEEK. 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 [facility] SK[facility]. 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 For Medicare and [facility] plans, please review the plan of care and approve it. It will need to be FAXED BACK to us at [phone] for Medicare purposes. Please let me know [...] AND CAD Result: Comments: See Note; NOTES: [facility] Imaging Services [address] [place] [address] Verdana 4d Bilat Scrn Digital AND CAD MR#: [id number] Acct: [id number] Name: JULIET SHORT Rep #: [id number] : 1950 F 66 From: Cruzito Khan MD PCP: Windy Mayorga DO Status: REG CLI Study: Meaghan [place] Digital AND CAD Date of Exam: 06/26/16 Exam# [id number] Ordering Dr: Windy Mayorga DO MAMMOGRAPHY - [...] no significant change since the prior study. BI/Meaghan Castle Digital AND CAD IMPRESSION: Stable bilateral screening mammogram. Yearly follow-up mammogram recommended. (A) ASSESSMENT CATEGORY: BIRADS Category 2: Benign. A letter regarding these results will be sent to the patient by the facility within 30 days. Approximately 10% of breast cancers are not detected by mammography. A normal mammogram should no t delay biopsy of a clinically suspicious abnormality. [id number] Electronically Signed: Cruzito Khan MD at 14:03 EDT Tel [phone], Service support [phone], CC: Windy Mayorga DO Educational Administrator: Signed 26-May-2016 Chest PA and Lateral Result: Comments: See Note; NOTES: [facility] Imaging Services [address] [place] [address] Verdana 4d Chest PA and Lateral MR#: [id number] Acct: [id number] Name: JULIET SHORT Rep #: [id number] : 1950 F 66 From: Samuel Cutler MD PCP: Windy Mayorga DO Status: REG CLI Study: Chest PA and Lateral Date of Exam: 05/26/16 Exam# [id number] Ordering Dr: Gatito Laurent MD STUDY: X-RAY [...] MD at 0:00 EDT , Service support [phone], CC: Windy Mayorga DO; Gatito Laurent MD Educational Administrator: Signed 03-Dec-2015 Chest PA and Lateral Result: Comments: See Note; NOTES: [facility] Imaging Services [address] [place] [address] Verdana 4d Chest PA and Lateral MR#: [id number] Acct: [id number] Name: JULIET SHORT Rep #: [id number] : 1950 F 65 From: Rush Arauz MD PCP: Raya Viera DO Status: REG CLI Study: Chest PA and Lateral Date of Exam: 12/03/15 Exam# [id number] Ordering Dr: Wyatt Viera ebra COLEY STUDY: X-RAY CHEST REASON FOR EXAM: Female, [...] at 6:54 EDT Tel , Service support [phone], RAD/Chest PA and Lateral IMPRESSION: No acute cardiopulmonary disease is seen, although I suspect some inters titial lung disease or mild fibrotic changes as could be seen with parenchymal phase of sarcoidosis, interval regression of the hilar prominence or adenopathy previously demonstrated. Electronically Signed: Donnie Arauz MD at 6:54 EDT Tel , Service support [phone], CC: Raya Viera DO Educational Administrator: Signed 03-Dec-2015 Spirometry (06770) Comments: good effort and curve normal- alot of coughing Result: 27-Apr-2015 Bilat Scrn Digital AND CAD Result: Comments: See Note; NOTES: [facility] Imaging Services [address] [facility] [facility] [place] [address] Breast Imaging Report MR#: [id number] Acct: [id number] Name: JULIET SHORT Rep #: [id number] : 1950 F 65 From: Cruzito Khan MD PCP: Raya Viera DO Status: REG CLI Study: Bilat Scrn Digital AND CAD Date of Exam: 04/27/15 Exam# [id number] Ordering Dr: Raya Viera DO MAMMOGRAPHY - [...] these [facility] by the facility within 30 days. Approximately 10% of breast cancers are not detected by mammography. A normal mammogram should not delay biopsy of a clinically suspicious abnormality. Electro nically Signed: Cruzito Khan MD at 8:58 EDT Tel [phone], Service support [phone], CC: Raya Viera DO Educational Administrator: Signed 05-Oct-2014 Sacrum-Coccyx min 2 Views Result: Comments: See Note; NOTES: [facility] Imaging Services [address] [facility] [place] [address] Radiology Report MR#: [id number] Acct: [id number] Name: JULIET SHORT Rep #: [id number] : 1950 F 64 From: Mahendra Bedoya DO PCP: Raya Viera DO Status: REG CLI Study: Sacrum-Coccyx min 2 Views Date of Exam: 10/05/14 Exam# [id number] Ordering Dr: Raya Viera DO STUDY: X-RAY [...] Mahendra Bedoya DO at 17:00 EST Tel [phone], Service support [phone], CC: Raya Viera DO Educational Administrator: Signed 26-Apr-2014 Meaghan Castle Digital & CAD Result: Comments: See Note; NOTES: [facility] Imaging Services [address] [place] [address] Breast Imaging Report MR#: [id number] Acct: [id number] Name: JULIET SHORT Rep #: [id number] : 1950 F 64 From: Cruzito Khan MD PCP: Raya Viera DO Status: REG CLI Exam# [id number] Ordering Dr: Raya Viera DO MAMMOGRAPHY - [...] Cruzito Khan MD at 9:13 EDT Tel [phone], Service support [phone], CC: Raya Viera DO Educational Administrator: Signed 26-Oct-2013 Knee 4 or More Views Result: Comments: See Note; NOTES: [facility] Imaging Services [address] [place] [address] Radiology Report MR#: [id number] Acct: [id number] Name: JULIET SHORT Rep #: [id number] : 1950 F 63 From: Cruzito Khan MD PCP: Raya Viera DO Status: REG CLI Study: Knee 4 or More Views Date of Exam: 10/26/13 Exam# [id number] Ordering Dr: Windy Mayorga DO STUDY : [...] M.D. at 16:16 EST , Service support [phone], CC: Raya Viera DO; Windy Mayorga DO Educational Administrator: Signed Immunization Name Dates Details Influenza (3 years and up) on: 06-Jul-2006 Influenza (3 years and up) on: 21-Jun-2007 Comments: Lot #:Expiration date:Amount given:Route: IMSite given:left deltoidGiven by: iveth Lot # [id number] exp 02-28-08 Influenza (3 years and up) on: 16-Jun-2008 Comments: 0.5cc given im lt olga H.Isra Influenza (3 years and up) on: 05-Jun-2009 Pneumococcal conjugate vaccine, 13 valent, IM on: 2014 Comments: Prevnar Family History Unknown Family Member Name Dates Details Brother 1 Comments: In good health Status: Active Father Comments: [place], Prosatate CA, HTN Status: Active Mother Comments: [...] smoker Vital Signs Date Test Result Details :06 Pulse 72 /min Comments: Pattern: Regular [...] kg/m2 Body Surface Area Calculated 1.85 m2 08-Xha-612761:11 Temperature 99.9 f Pulse 81 /min Comments: [...] 0.00 cm Results Date Description Value Details 66-Vie-756052:15 TSH (04697) Comments: PATIENT NOT FASTINGPERFORMED BY: [employer] [facility] [id number] TSH 1.790 {uIU/mL} (Normal) Range: 0.450-4.500 81-Tqs-124050:15 T4, FREE (THYROXINE) (00329) Comments: PATIENT NOT FASTINGPERFORMED BY: [employer] Mnhcac9520 [facility] [id number] T4,Free(Direct) 1.07 ng/dL (Normal) Range: 0.82-1.77 35-Rps-219164:15 T3, FREE (TRIDOTHYRONINE) (56296) Comments: PATIENT NOT FASTINGPERFORMED BY: [employer] Zmfikf2668 [facility] [id number] Triiodothyronine (T3), Free 2.7 pg/mL (Normal) Range: 2.0-4.4 89-Jck-795850:15 Microscopic Examination Comments: PATIENT WAS FASTINGPERFORMED BY: [employer] Tjihqm7192 [facility] [id number] Bacteria None seen (Normal) Mucus Threads Present (Normal) Epithelial Cells (non renal) 0-10 {/hpf} (Normal) Range: 0 - 10 RBC 0-2 {/hpf} (Normal) Range: 0 - 2 WBC 0-5 {/hpf} (Normal) Range: 0 - 5 42-Prh-101017:11 URINE MADAY CULTURE-FARIBA COL Comments: PATIENT NOT FASTINGPERFORMED BY: [facility]6370 [facility] [id number] Information: SRC:UC COUNT (50428) Antimicrobial MIHEAD (Normal) Comments: S = Susceptible; [...] mL (Abnormal) Urine Final report Culture,Comprehensive (Abnormal) 08-Tby-192595:07 Urinalysis, Office (39380) UA - LEUKOCYTE ESTERASE Small (Normal) UA - NITRITE Negative (Normal) URINE UROBILINGN FARIBA TIMED Normal mg/dL (Normal) UA - PROTEIN Negative mg/dL (Normal) UA - PH 6 (Abnormal) UA - BLOOD Negative (Normal) UA - SPECIFIC GRAVITY 1.015 (Normal) UA - KETONES Negative mg/dL (Normal) UA - BILIRUBIN Negative (Normal) UA - GLUCOSE Negative (Normal) 44-Qbh-085664:16 URINE MADAY CULTURE-IDENTIFICATN Comments: PERFORMED BY: [facility] [facility] Wpkigc6668 [facility] [id number] Information: SRC:UR (76400) Antimicrobial MIHEAD (Normal) Comments: S = Susceptible; [...] mL (Abnormal) Urine Final report Culture,Comprehensive (Abnormal) 61-Riy-703258:00 Urinalysis, Office (88982) UA - LEUKOCYTE ESTERASE Large (Normal) UA - NITRITE Positive (Normal) URINE UROBILINGN FARIBA TIMED 2 mg/dL (Normal) UA - PROTEIN Negative mg/dL (Normal) UA - PH 5.0 (Normal) UA - BLOOD Hemolyzed Small (Normal) UA - SPECIFIC GRAVITY 1.015 (Normal) UA - KETONES Negative mg/dL (Normal) UA - BILIRUBIN Negative (Normal) UA - GLUCOSE Negative (Normal) 11-Hru-368301:12 Rapid Flu (37889 x 2) Influenza A Ag Positive A (Normal) Comments: had flu shot 62-Gkr-522670:15 CALCIFIDIOL (59825) VIT D 25 Comments: PATIENT WAS FASTINGPERFORMED BY: [facility] [id number] Vitamin D, 25-Hydroxy 45.6 ng/mL (Normal) Range: 30.0-100.0 Comments: Vitamin D deficiency has been defined by the [place] [facility] and an Endocrine Society practice guideline as alevel of serum 25-OH vitamin D less than 20 ng/mL (1,2).The Endocrine Society went on to further define vitamin Dinsufficiency as a level between 21 and 29 ng/mL (2).1. IOM ([place] of Medicine). 2010. Dietary reference intakes for calcium and D. [place]: The National Academies Press.2. Dung MF, Ken NC, Diego ELMORE, et al. Evaluation, treatment, and prevention of vitamin D deficiency: an Endocrine Society clinical practice guideline. JCEM. 2010; 96(7):1911-30. 70-Khs-530313:15 TSH (41381) Comments: PATIENT WAS FASTINGPERFORMED BY: [facility] Jwibbt6393 ffk environmentMartin General Hospitalin [place] [id number] TSH 4.170 {uIU/mL} (Normal) Range: 0.450-4.500 36-Ymd-988905:15 URINALYSIS, W/ MICRO (86209) Comments: PATIENT WAS FASTINGPERFORMED BY: [facility] Pbgfsh9159 [facility] [place] [id number] Microscopic Examination See below: (Normal) Comments: Microscopic was indicated and was performed. Microscopic Examination MICRON (Normal) Comments: Microscopic follows if indicated. Nitrite, Urine Negative (Normal) Urobilinogen,Semi-Qn 0.2 mg/dL (Normal) Range: 0.2-1.0 Bilirubin Negative (Normal) Occult Blood Negative (Normal) Ketones Negative (Normal) Glucose Negative (Normal) Protein Negative (Normal) WBC Esterase Negative (Normal) Appearance Clear (Normal) Urine-Color Yellow (Normal) pH 7.0 (Normal) Range: 5.0-7.5 Specific [place] 1.020 (Normal) Range: 1.005-1.030 24-Jja-687660:15 MICROALBUMIN: CREATININE RATIO Comments: PATIENT WAS FASTINGPERFORMED BY: [facility] [id number] (23673) AND (77757) Alb/Creat Ratio 17.8 {mg/g_creat} (Normal) Range: 0.0-30.0 Albumin, Urine 25.9 ug/mL (Normal) Creatinine, Urine 145.6 mg/dL (Normal) 90-Pfy-022011:15 METABOLIC PANEL, COMPREHENSIVE Comments: PATIENT WAS FASTINGPERFORMED BY: [employer]6[facility] [id number] (35042) ALT (SGPT) 15 [iU]/L (Normal) Range: 0-32 [...] 8-27 Glucose 83 mg/dL (Normal) Range: 65-99 62-Vpg-594519:15 LIPID PANEL (22020) Comments: PATIENT WAS FASTINGPERFORMED BY: LabSensulinShiprock-[facility] CenterbFqjchr2538 [facility] [id number] LDL/HDL Ratio 1.3 {ratio} (Normal) Range: 0.0-3.2 Comments: LDL/HDL Ratio Men Women 1/2 Avg.Risk 1.0 1.5 Av g.Risk 3.6 3.2 2X Avg.Risk 6.2 5.0 3X Avg.Risk 8.0 6.1 LDL Cholesterol Calc 94 mg/dL (Normal) Range: 0-99 VLDL Cholesterol Gabriel 17 mg/dL (Normal) Range: 5-40 HDL Cholesterol 72 mg/dL (Normal) Triglycerides 86 mg/dL (Normal) Range: 0-149 Cholesterol, Total 183 mg/dL (Normal) Range: 100-199 34-Vxr-226637:15 CBC W/AUTO DIFF WBC (49649) Comments: PATIENT WAS FASTINGPERFORMED BY: [facility]exEast [facility] Medical CenterUlqzzf7838 [facility] [id number] Immature Grans (Abs) 0.0 {x10E3/uL} (Normal) Range: [...] 3.77-5.28 WBC 6.8 {x10E3/uL} (Normal) Range: 3.4-10.8 53-Ute-14875:35 URINE MADAY CULTURE-IDENTIFICATN Comments: PATIENT NOT FASTINGPERFORMED BY: [facility] Nkjhjh5236 [facility] [id number] Information: SRC:JUDI (59551) Antimicrobial MIHEAD (Normal) Comments: S = Susceptible; [...] . (Abnormal) Urine Final report Culture,Comprehensive (Abnormal) 71-Nqs-017268:51 Urinalysis, Office (40380) UA - LEUKOCYTE ESTERASE Moderate (Normal) UA [...] Microscopic Examination Comments: PATIENT WAS FASTINGPERFORMED BY: [place] [id number] [facility] [id number] Bacteria None seen (Normal) Mucus Threads Present (Normal) Cast Type Hyaline casts (Normal) Casts Present {/lpf} (Abnormal) Epithelial Cells (non renal) 0-10 {/hpf} (Normal) Range: 0 - 10 RBC None seen {/hpf} (Normal) Range: 0 - 2 WBC 0-5 {/hpf} (Normal) Range: 0 - 5 :38 TSH (65869) Comments: PATIENT WAS FASTINGPERFORMED BY: [address] [id number] TSH 2.710 {uIU/mL} (Normal) Range: 0.450-4.500 :38 T4, FREE (THYROXINE) (93022) Comments: PATIENT WAS FASTINGPERFORMED BY: [address] [id number] T4,Free(Direct) 1.21 ng/dL (Normal) Range: 0.82-1.77 :38 T3, FREE (TRIDOTHYRONINE) (35055) Comments: PATIENT WAS FASTINGPERFORMED BY: [address] [id number] Triiodothyronine,Free,Serum 2.8 pg/mL (Normal) Range: 2.0-4.4 :38 URINALYSIS, W/ MICRO (63392) Comments: PATIENT WAS FASTINGPERFORMED BY: [address] [id number] Microscopic Examination See below: (Normal) Comments: Microscopic was indicated and was performed. Microscopic Examination MICRON (Normal) Comments: Microscopic follows if indicated. Nitrite, Urine Negative (Normal) Urobilinogen,Semi-Qn 0.2 mg/dL (Normal) Range: 0.2-1.0 Bilirubin Negative (Normal) Occult Blood Negative (Normal) Ketones Negative (Normal) Glucose Negative (Normal) Protein Negative (Normal) WBC Esterase Negative (Normal) Appearance Clear (Normal) Urine-Color Yellow (Normal) pH 7.0 (Normal) Range: 5.0-7.5 Specific [place] 1.017 (Normal) Range: 1.005-1.030 :38 MICROALBUMIN: CREATININE RATIO Comments: PATIENT WAS FASTINGPERFORMED BY: [employer] [facility] [id number] (44397) AND (98492) Microalb/Creat Ratio 5.3 {mg/g_creat} (Normal) Range: 0.0-30.0 Microalbumin, Urine 4.6 ug/mL (Normal) Creatinine, Urine 87.1 mg/dL (Normal) :38 METABOLIC PANEL, COMPREHENSIVE Comments: PATIENT WAS FASTINGPERFORMED BY: [facility] [id number] (03634) ALT (SGPT) 14 [iU]/L (Normal) Range: 0-32 [...] Range: 65-99 :38 CBC W/AUTO DIFF WBC (27221) Comments: PATIENT WAS FASTINGPERFORMED BY: [facility]6370 [facility] [id number] Immature Grans (Abs) 0.0 {x10E3/uL} (Normal) Range: [...] {x10E3/uL} (Normal) Range: 3.4-10.8 :38 LIPID PANEL (57423) Comments: PATIENT WAS FASTINGPERFORMED BY: [facility] CenterbRxsvms2200 [facility] [id number] LDL/HDL Ratio 1.4 {ratio_units} (Normal) Range: 0.0-3.2 [...] 187 mg/dL (Normal) Range: 100-199 :38 CALCIFIDIOL (68093) VIT D 25 Comments: PATIENT WAS FASTINGPERFORMED BY: [employer] Lzexmp9589 [facility] [id number] Vitamin D, 25-Hydroxy 49.1 ng/mL (Normal) Range: 30.0-100.0 Comments: Vitamin D deficiency has been defined by the [place] of[place]icine and an Endocrine Society practice guideline as alevel of serum 25-OH vitamin D less than 20 ng/mL (1,2).The Endocrine Society went on to further define vitamin Dinsufficiency as a level between 21 and 29 ng/mL (2).1. IOM ([place] of Medicine). 2010. Dietary reference intakes for calcium and D. [place]: The National Academies Press.2. Dung MF, Ken NC, Diego ELMORE, et al. Evaluation, treatment, and prevention of vitamin D deficiency: an Endocrine Society clinical practice guideline. JCEM. 2010; 96(7):1911-30. :11 URINE MADAY CULTURE-IDENTIFICATN Comments: PATIENT NOT FASTINGPERFORMED BY: [facility]Work.[facility]6370 [facility] [id number] Information: SRC:UC (06015) Result 1 MUG (Normal) Comments: Mixed urogenital flora25,000-50,000 colony forming units per mL Urine Final report (Normal) Culture,Comprehensive :26 Urinalysis, Office (58920) UA - LEUKOCYTE ESTERASE Small (Normal) UA - NITRITE Negative (Normal) URINE UROBILINGN FARIBA TIMED Normal mg/dL (Normal) UA - PROTEIN Negative mg/dL (Normal) UA - PH 7 (Normal) UA - BLOOD Negative (Normal) UA - SPECIFIC GRAVITY 1.025 (Normal) UA - KETONES Negative mg/dL (Normal) UA - BILIRUBIN Negative (Normal) UA - GLUCOSE Negative (Normal) :24 Fecal Occult Blood , Office (88095) Fecal Occult Blood , Office (Inhouse) negative (Normal) :54 Fecal Occult Blood , Office (08020) Fecal Occult Blood , Office (Inhouse) positive (Normal) :24 Angiotensin Convert Enzyme Comments: [facility] (refer to report for specific site)refer to report for address and phone number [phone] U/L (Normal) Range: 14-82 Comments: Performed at: [address] [id number] Director: John Paul Burrows PhD, Phone: [phone] 38-Ntg-856191:24 Erythrocyte Sed Rate Comments: [facility] Btsyfozsne7513 [place], [place], [id number] SED RATE 9 mm/h (Normal) Range: 0-30 40-Bca-91736:06 Microscopic Examination Comments: PATIENT WAS FASTINGPERFORMED BY: [address] [id number] Bacteria Moderate (Abnormal) Mucus Threads Present (Normal) Epithelial Cells (non renal) 0-10 {/hpf} (Normal) Range: 0 - 10 RBC 0-2 {/hpf} (Normal) Range: 0 - 2 WBC 11-30 {/hpf} (Abnormal) Range: 0 - 5 :06 CALCIFEDIOL (52821) Comments: PATIENT WAS FASTINGPERFORMED BY: [facility] [place] [address] [id number] Vitamin D, 25-Hydroxy 48.3 ng/mL (Normal) Range: 30.0-100.0 Comments: Vitamin D deficiency has been defined by the [place] of[place] and an Endocrine Society practice guideline as alevel of serum 25-OH vitamin D less than 20 ng/mL (1,2).The Endocrine Society went on to further define vitamin Dinsufficiency as a level between 21 and 29 ng/mL (2).1. IOM ([place]). 2010. Dietary reference intakes for calcium and D. [place]: The National Academies Press.2. Dung MF, Ken MCFARLAND, Diego ELMORE, et al. Evaluation, treatment, and prevention of vitamin D deficiency: an Endocrine Society clinical practice guideline. JCEM. 2010; 96(7):1911-30. :06 TSH (THYROID STIMULATING Comments: PATIENT WAS FASTINGPERFORMED BY: [place] [id number] HORMONE) (55599) TSH 3.690 {uIU/mL} (Normal) Range: 0.450-4.500 :06 URINALYSIS (36785) Comments: PATIENT WAS FASTINGPERFORMED BY: [facility] [id number] Microscopic Examination See below: (Normal) Comments: Microscopic was indicated and was performed. Nitrite, Urine Negative (Normal) Urobilinogen,Semi-Qn 0.2 mg/dL (Normal) Range: 0.2-1.0 Bilirubin Negative (Normal) Occult Blood Negative (Normal) Ketones Negative (Normal) Glucose Negative (Normal) Protein Negative (Normal) WBC Esterase 3+ (Abnormal) Appearance Clear (Normal) Urine-Color Yellow (Normal) pH 7.5 (Normal) Range: 5.0-7.5 Specific [place] 1.017 (Normal) Range: 1.005-1.030 :06 Lipid Panel (89675) Comments: PATIENT WAS FASTINGPERFORMED BY: [facility] [id number] LDL/HDL Ratio 1.5 {ratio_units} (Normal) Range: 0.0-3.2 [...] Cholesterol, Total 190 mg/dL (Normal) Range: 100-199 48-Web-50882:06 Metabolic Panel, Comprehensive Comments: PATIENT WAS FASTINGPERFORMED BY: [facility] CenterAzzxcn5951 [facility] [id number] (32752) ALT (SGPT) 13 [iU]/L (Normal) Range: 0-32 [...] MANUAL DIFF Comments: PATIENT WAS FASTINGPERFORMED BY: [facility]Co[facility] CenterHfvyor7466 [facility] [id number] Information: [id number] (48697) Immature Grans (Abs) 0.0 {x10E3/uL} (Normal) Range: [...] 3.77-5.28 WBC 6.4 {x10E3/uL} (Normal) Range: 3.4-10.8 07-Yqu-28821:06 MICROALBUMIN: CREATININE RATIO Comments: PATIENT WAS FASTINGPERFORMED BY: [facility] CenterWyowdv5960 [facility] [id number] (68470) AND (16619) Microalb/Creat Ratio 4.3 {mg/g_creat} (Normal) Range: 0.0-30.0 Microalbumin, Urine 3.4 ug/mL (Normal) Creatinine, Urine 78.2 mg/dL (Normal) 0-Hte-796564:22 ANGTENSIN 1-CONVRT ENZYM Comments: PATIENT NOT FASTINGPERFORMED BY: [facility] Rwmlqy2178 [facility] [id number] Information: [id number] (43704) ART 61 U/L (Normal) Range: 14-82 5-Mxe-320992:22 SED RATE ERYTHROCYTE (83961) Comments: PATIENT NOT FASTINGPERFORMED BY: [facility] Oppmex2690 [facility] [id number] Sedimentation Rate-Westergren 7 mm/h (Normal) Range: 0-40 8-Uwd-778130:22 C-REACTIVE PROTEIN (50087) Comments: PATIENT NOT FASTINGPERFORMED BY: [facility] Wipvjk9009 [facility] [id number]; non- emergent till apt C-Reactive Protein, Quant 2.2 mg/L (Normal) Range: 0.0-4.9 17-Usy-908649:13 Rapid Flu (18137 x 2) Influenza A Ag negative a/b (Normal) 1-Hpm-090235:37 URINE MADAY CULTURE (FARIBA Comments: PATIENT NOT FASTINGPERFORMED BY: [facility] Eglnxt7008 [facility] [id number] Information: SRC:UR [id number] COL COUNT) (35421) Result 1 MUG (Normal) Comments: Mixed urogenital flora2,000 Colonies/mL Urine Culture,Comprehensive Final report (Normal) 2-Yyn-795180:15 Urinalysis, Office (77936) UA - LEUKOCYTE ESTERASE Negative (Normal) UA - NITRITE Negative (Normal) URINE UROBILINGN FARIBA TIMED Normal mg/dL (Normal) UA - PROTEIN Negative mg/dL (Normal) UA - PH 6 (Abnormal) UA - BLOOD Negative (Normal) UA - SPECIFIC GRAVITY 1.020 (Normal) UA - KETONES Negative mg/dL (Normal) UA - BILIRUBIN Negative (Normal) UA - GLUCOSE Negative (Normal) 55-Lwm-24730:42 Comprehensive Metabolic Profil Comments: [facility] Itoxyuagqn[address] [place], [place], [id number] GAP 4 (Abnormal) Range: 5-15 CO2 30.0 [...] 7-18 GLU 93 mg/dL (Normal) Range: 70-110 38-Did-18399:42 Lipid Profile Comments: [facility] Ydparsbtss67[address] [place], [place], [id number] ; non-emergent till apt VLDL 35 mg/dL [...] 200-240 mg/dL Borderline >240 mg/dL High Risk 38-Lwi-89625:42 Vitamin D,25 Hydroxy Comments: [facility] Njzdzsrpvo[address] [place], [address] Vitamin D 25-OH 31.7 ng/mL (Normal) Comments: Vitamin D 25(OH) Status Range Deficiency <20 ng/mL (50nmol/L) Insuffciency 20 - 30 ng/mL (50 - 75 nmol/L) Sufficiency 30 - 100 ng/mL (75 - 250 nmol/L) Toxicity >100 ng/mL (>250 nmol/L) 37-Krm-320286:26 Pap IG (Image Comments: Source.............Cervical;EndocervicalNo. of containers..01 CYTYC Thin Prep VialPATIENT NOT FASTINGPERFORMED BY: =G [facility] [address] [id number] BY: WB L Guided) [facility] Eekjwbzsyp488 [facility] [id number] Note: PAPSMR (Normal) Comments: The Pap smear [...] for malignant neoplasm of the cervixRenetta Medina Podiatric Assistant (ASCP) 61-Vbf-628977:26 Thin Prep Pap Comments: Source.............Cervical;EndocervicalNo. of containers..01 CYTYC Thin Prep VialPATIENT NOT FASTINGPERFORMED BY: =G [facility] Sadetjecxf306 [facility] [id number] BY: VICKI Beal (07282) Paul Munozton120 [facility] [id number] Information: [id number] Age Gdln ACOG Testing AGE4 (Normal) Comments: <21 or >65 or no age provided 93-Zws-03879:08 Rapid Strep Test, Office (10069) Comments: neg Rapid Strep Test, Office Negative (Normal) 13-Bgu-00934:26 Microscopic Examination Comments: PATIENT WAS FASTINGPERFORMED BY: JAMES [facility]At[facility] [id number] Bacteria None seen (Normal) Mucus Threads Present (Normal) Epithelial Cells (non renal) 0-10 {/hpf} (Normal) Range: 0 - 10 RBC 0-2 {/hpf} (Normal) Range: 0 - 2 WBC 0-5 {/hpf} (Normal) Range: 0 - 5 07-Mnb-677214:02 URINE MADAY CULTURE-FARIBA COL Comments: PERFORMED BY: JAMES [facility] [id number] COUNT (06627) Result 1 MUG (Normal) Comments: Mixed urogenital flora10,000-25,000 colony forming units per mL Urine Final report (Normal) Culture,Comprehensive 14-Cvc-073144:00 Urinalysis, Office (54267) UA - LEUKOCYTE ESTERASE Negative (Normal) UA - NITRITE Negative (Normal) URINE UROBILINGN FARIBA TIMED Normal mg/dL (Normal) UA - PROTEIN Negative mg/dL (Normal) UA - PH 7.0 (Normal) UA - BLOOD non-hemolyzed trace (Normal) UA - SPECIFIC GRAVITY 1.010 (Normal) UA - KETONES Negative mg/dL (Normal) UA - BILIRUBIN Negative (Normal) UA - GLUCOSE Negative (Normal) 26-Ata-37474:26 METABOLIC PANEL, Comments: PATIENT WAS FASTINGPERFORMED BY: [facility]Put[facility] [id number] Information: [id number] [facility] (28751) ALT (SGPT) 27 [iU]/L (Normal) Range: 0-32 [...] Glucose, Serum 88 mg/dL (Normal) Range: 65-99 64-Oxt-36960:26 URINALYSIS, W/ MICRO (57985) Comments: PATIENT WAS FASTINGPERFORMED BY: [facility]Co[facility] CenterTtaybr9764 [facility] [id number] Microscopic Examination See below: (Normal) Comments: Microscopic was indicated and was performed. Microscopic Examination MICRON (Normal) Comments: Microscopic follows if indicated. Nitrite, Urine Negative (Normal) Urobilinogen,Semi-Qn 0.2 mg/dL (Normal) Range: 0.0-1.9 Bilirubin Negative (Normal) Occult Blood Negative (Normal) Ketones Negative (Normal) Glucose Negative (Normal) Protein Negative (Normal) WBC Esterase Negative (Normal) Appearance Clear (Normal) Urine-Color Yellow (Normal) pH 7.0 (Normal) Range: 5.0-7.5 Specific [place] 1.023 (Normal) Range: 1.005-1.030 :26 TSH (23518) Comments: PATIENT WAS FASTINGPERFORMED BY: [facility] Aejqxn5313 [facility] [place] [id number] TSH 3.170 {uIU/mL} (Normal) Range: 0.450-4.500 :26 Vitamin D Hydroxy (70174) Comments: PATIENT WAS FASTINGPERFORMED BY: [facility] Pnwxog0116 [facility] [id number] Vitamin D, 25-Hydroxy 34.3 ng/mL (Normal) Range: 30.0-100.0 Comments: Vitamin D deficiency has been defined by the [place] and an Endocrine Society practice guideline as alevel of serum 25-OH vitamin D less than 20 ng/mL (1,2).The Endocrine Society went on to further define vitamin Dinsufficiency as a level between 21 and 29 ng/mL (2).1. IOM ([place]). 2010. Dietary reference intakes for calcium and D. [place]: The National Academies Press.2. Dung MF, Ken NC, Diego ELMORE, et al. Evaluation, treatment, and prevention of vitamin D deficiency: an Endocrine Society clinical practice guideline. JCEM. 2010; 96(7):1911-30. :26 LIPID PANEL (68855) Comments: PATIENT WAS FASTINGPERFORMED BY: [facility] Qkldqw0217 [facility] [id number]; will review at 04/11 appt LDL/HDL Ratio [...] (Abnormal) Range: 100-199 :31 Vitamin D Hydroxy (79289) Comments: PATIENT WAS FASTINGPERFORMED BY: [facility] Nojfgz6552 [facility] [id number] Vitamin D, 25-Hydroxy 35.2 ng/mL (Normal) Range: 30.0-100.0 Comments: Vitamin D deficiency has been defined by the [place] of[place] and an Endocrine Society practice guideline as alevel of serum 25-OH vitamin D less than 20 ng/mL (1,2).The Endocrine Society went on to further define vitamin Dinsufficiency as a level between 21 and 29 ng/mL (2).1. IOM ([place]). 2010. Dietary reference intakes for calcium and D. [place]: The National Academies Press.2. Dung MF, Ken NC, Diego ELMORE, et al. Evaluation, treatment, and prevention of vitamin D deficiency: an Endocrine Society clinical practice guideline. JCEM. 2010; 96(7):1911-30. :31 TSH (59921) Comments: PATIENT WAS FASTINGPERFORMED BY: [facility] Jojmzc0423 [facility] [id number] TSH 3.100 {uIU/mL} (Normal) Range: 0.450-4.500 :31 MICROALBUMIN: CREATININE RATIO Comments: PATIENT WAS FASTINGPERFORMED BY: [facility] Utmooj9945 [facility] [id number] (39453) AND (20240) Microalb/Creat Ratio 2.0 {mg/g_creat} (Normal) Range: 0.0-30.0 Microalbumin, Urine 3.8 ug/mL (Normal) Range: 0.0-17.0 Creatinine, Urine 189.7 mg/dL (Normal) Range: 15.0-278.0 :31 CBC WITH MANUAL DIFF Comments: PATIENT WAS FASTINGPERFORMED BY: [facility]Co[facility] CenterKzjihc9500 [facility] [id number] Information: [id number] (16503) Immature Grans (Abs) 0.0 {x10E3/uL} (Normal) Range: [...] 3.77-5.28 WBC 6.9 {x10E3/uL} (Normal) Range: 3.4-10.8 45-Usd-13522:31 METABOLIC PANEL, COMPREHENSIVE Comments: PATIENT WAS FASTINGPERFORMED BY: [facility]CoEast [facility] CenterSelsec0541 [facility] [id number] (40430) ALT (SGPT) 11 [iU]/L (Normal) Range: 0-32 [...] mg/dL (Normal) Range: 65-99 :31 LIPID PANEL (57527) Comments: PATIENT WAS FASTINGPERFORMED BY: [facility] Icbfuz3363 [facility] [id number] LDL/HDL Ratio 1.4 {ratio_units} (Normal) Range: 0.0-3.2 LDL Cholesterol Calc 89 mg/dL (Normal) Range: 0-99 VLDL Cholesterol Gabriel 30 mg/dL (Normal) Range: 5-40 HDL Cholesterol 62 mg/dL (Normal) Comments: According to ATP-III Guidelines, HDL-C >59 mg/dL is considered anegative risk factor for CHD. Triglycerides 149 mg/dL (Normal) Range: 0-149 Cholesterol, Total 181 mg/dL (Normal) Range: 100-199 93-Sdj-940142:14 URINE MADAY CULTURE (FARIBA Comments: PATIENT NOT FASTINGPERFORMED BY: [facility] Btirls6960 [facility] [id number] Information: SRC:UR [id number] COL COUNT) (79794) Result 1 MUG (Normal) Comments: Mixed urogenital Colonies/mL Urine Culture,Comprehensive Final report (Normal) 47-Txy-084687:18 URINE MADAY CULTURE-IDENTIFICATN Comments: PATIENT NOT FASTINGPERFORMED BY: [facility] Erdylt5185 [facility] [id number] Information: [id number] (63496) Antimicrobial MIHEAD (Normal) Comments: S = Susceptible; [...] mL (Abnormal) Urine Final report Culture,Comprehensive (Abnormal) 18-Vpj-606518:09 Urinalysis, Office (06813) UA - LEUKOCYTE ESTERASE Moderate (Normal) UA - NITRITE Negative (Normal) URINE UROBILINGN FARIBA TIMED Normal mg/dL (Normal) UA - PROTEIN Negative mg/dL (Normal) UA - PH 5.0 (Normal) UA - BLOOD Hemolyzed Large (Normal) UA - SPECIFIC GRAVITY 1.020 (Normal) UA - KETONES Negative mg/dL (Normal) UA - BILIRUBIN Negative (Normal) UA - GLUCOSE Negative (Normal) 90-Lbe-385592:37 URINE MADAY CULTURE-IDENTIFICATN Comments: PATIENT NOT FASTINGPERFORMED BY: [facility] Jxmpws3050 [facility] [id number] Information: SRC: URINE [id number] (54549) Antimicrobial MIHEAD (Normal) Comments: S = Susceptible; [...] mL (Normal) Urine Final report Culture,Comprehensive (Normal) 74-Yva-834147:10 Urinalysis, Office (60567) UA - BILIRUBIN Negative (Normal) UA - BLOOD Hemolyzed Moderate (Normal) UA - GLUCOSE Negative (Normal) UA - KETONES Negative mg/dL (Normal) UA - LEUKOCYTE ESTERASE Large (Normal) UA - NITRITE Negative (Normal) UA - PH 6.0 (Normal) UA - PROTEIN Negative mg/dL (Normal) UA - SPECIFIC GRAVITY 1.025 (Normal) URINE UROBILINGN FARIBA TIMED Normal mg/dL (Normal) 72-Frx-848436:14 HPV automatic Comments: Source.............Cervical;EndocervicalNo. of containers..01 CYTYC Thin Prep VialPATIENT NOT FASTINGPERFORMED BY: WB [facility] [address] [id number] BY: =G L (15784) [facility] [address] [id number] Information: [id number] HPV, high-risk Negative Comments: This high-risk HPV [...] are present.V72.31 ; Routine gynecological examinationMichael Carmona Podiatric Assistant (ASCP) 02-Ndp-146867:45 FECAL OCCULT HGB ASSAY- tubes sent home (72152) FECAL OCCULT HGB ASSAY, QUAL, 1-3 SIMULTANEOU negative (Normal) 00-Jkx-935372:37 CBC WITH MANUAL DIFF Comments: PATIENT WAS FASTINGPERFORMED BY: [facility]6370 [facility] [id number] Information: [id number] (21391) Immature Grans (Abs) 0.0 {x10E3/uL} (Normal) Range: [...] PANEL, COMPREHENSIVE Comments: PATIENT WAS FASTINGPERFORMED BY: [facility]Co[facility] CenterKpwfya4174 [facility] [id number] (41165) ALT (SGPT) 21 [iU]/L (Normal) Range: 0-32 [...] Glucose, Serum 92 mg/dL (Normal) Range: 65-99 55-Gst-326403:37 Vitamin D Hydroxy (58928) Comments: PATIENT WAS FASTINGPERFORMED BY: [facility]6370 [facility] [id number] Vitamin D, 25-Hydroxy 35.3 ng/mL (Normal) Range: 30.0-100.0 Comments: Vitamin D deficiency has been defined by the [place] of[place] and an Endocrine Society practice guideline as alevel of serum 25-OH vitamin D less than 20 ng/mL (1,2).The Endocrine Society went on to further define vitamin Dinsufficiency as a level between 21 and 29 ng/mL (2).1. IOM ([place]). 2010. Dietary reference intakes for calcium and D. [place]: The National Academies Press.2. Dung MF, Ken MCFARLAND, Diego ELMORE, et al. Evaluation, treatment, and prevention of vitamin D deficiency: an Endocrine Society clinical practice guideline. JCEM. 2010; 96(7):1911-30. 34-Ihw-991157:37 TSH (62298) Comments: PATIENT WAS FASTINGPERFORMED BY: [facility] Vwceyd1795 [facility] [id number] TSH 2.590 {uIU/mL} (Normal) Range: 0.450-4.500 73-Tuj-484077:37 LIPID PANEL (84410) Comments: PATIENT WAS FASTINGPERFORMED BY: [facility]Co[facility] CenterRrouog4633 [facility] [id number] LDL/HDL Ratio 2.0 {ratio_units} (Normal) Range: 0.0-3.2 LDL Cholesterol Calc 141 mg/dL (Abnormal) Range: 0-99 VLDL Cholesterol Gabriel 25 mg/dL (Normal) Range: 5-40 HDL Cholesterol 72 mg/dL (Normal) Comments: According to ATP-III Guidelines, HDL-C >59 mg/dL is considered anegative risk factor for CHD. Triglycerides 125 mg/dL (Normal) Range: 0-149 Cholesterol, Total 238 mg/dL (Abnormal) Range: 100-199 64-Lnq-52095:01 BILAT SCRN DIGITAL & CAD Radiology Report [...] Durant M.D.April 21, 2013 at 3:29:39 PM [id number] Signed RU/RU If you are the referring physician and would like to consult with theradiologist who provided this interpretation, please contact Tricia Camarena at [phone]. If this radiologist is unavailable, youwillbe directed to another radiologist to assist. If you are a patient with a question regarding this report, pleasecontactyour referring physician direct ly. Professional Interpretation Provided By: [employer], Phone , These documents contain legally protected and confidential healthinformation intended only for the use of the individual or entity namedabove. If you are not the intended recipient, you are hereby notifiedthatany disclosure, copying, distribution, or other use of these documents isstrictly prohibited. If brandy garduno have received this information in error,pleasenotify the sender immediately and arrange for the return or destructionofthese documents. Dictated on 04/21/13 152 by Frank DurantTranscribed on 1536 by ITS IMPORTSign by Frank Durant on 04/21/131537 Sign by: Frank Durant :18 CBCMD ANC 3.5 3/uL (Normal) Range: [...] CHOL 194 mg/dL (Normal) Comments: <200 mg/dL Yjmzadsgp588-485 mg/dL Borderline>240 mg/dL High Risk :18 TSH 2.02 {uIU/mL} (Normal) Range: 0.358-3.74 :18 VITD 56.0 ng/mL (Normal) Comments: Vitamin D 25(OH) Status RangeDeficiency <20 ng/mL (50nmol/L)Insufficiency 20 - 30 ng/mL (50 - 75 nmol/L)Sufficiency 30 - 100 ng/mL (75 - 250 nm ol/L)Toxicity >100 ng/mL (250 nmol/L)Effective 201209-Sep-201205-Pcz-017069:39 Aerobic Bacterial Culture Comments: PERFORMED BY: JAMES [facility] Zkjffs5523 [facility] AngMartin [facility] Hospitalpaulina [place] [id number] Information: SRC:CH RIGHT CHEST Result 1 NG36 [...] D deficiency has been defined by the [place] of[place] and an Endocrine Society practice guideline as alevel of serum 25-OH vitamin D less than 20 ng/mL (1,2).The Endocrine Society went on to further define vitamin Dinsufficiency as a level between 21 and 29 ng/mL (2).1. IOM ([place]). 2010. Dietary reference intakes for calcium and D. [place]: The National Academies Press.2. Dung MF, Ken NC, Diego ELMORE, et al. Evaluation, treatment, and prevention of vitamin D deficiency: an Endocrine Society clinical practice guideline. JCEM. 2010; 96(7): 1911-30.Performed at: [address] [id number] Director: Amari Barnett PhD, Phone: [phone] 8-Cvs-107463:36 BILAT SCRN DIGITAL & CAD Radiology Report [...] Khan M.D.April 05, 2012 at 3:13:08 PM [id number] Signed GP/GP If you are the referring physician and would like to consult with theradiologist who provided this interpretation, please contact Tricia Butler at [phone]. If this radiologist is unavailable, youwill be directed to another radiologist to assist. If you are a patient with a questi on regarding this report, pleasecontactyour referring physician directly. Professional Interpretation Provided By: [employer], Phone , These documents contain legally prot [...] docum ents. Dictated on 04/05/12 1450 by Chester RAO,PauloriEloisaranscribed on 04/05/12 1518 by ITS IMPORTSign by Cruzito Khan MD on 04/05/12 1519 Sign by: Cruzito Khan MD 71-Pfi-892453:06 HEPATOBILLIARY IMG W/PHARM INT Radiology Report See [...] Cholecystokinin (0.02 ug/kg) was administered intravenously over d03-mbqlln period. T he post CCK gallbladder ejection fraction zfjjzetndfpl15 minutes following Cholecystokinin administration was noted to [...] Bustos M.D.March 31, 2012 at 9:50:05 AM [id number] Signed RB/RB If you are the referring physician and would like to consult with theradiologist who provided this interpretati on, please contact Tricia Hood at [phone]. If this radiologist is unavailable, you will bedirected to another radiologist to assist. If you are a patient with a question regarding this report , pleasecontactyour referring physician directly. Professional Interpretation Provided By: [employer], Phone , These documents contain legally protected [...] 03/31/12 1158 Sign by: Frank Bustos DO 32-Ijy-54603:09 GALLBLADDER Comments: f/u 03/19/12 Radiology Report See [...] size of the right kidney. The right zejkbphvkvyoem72.4 cm. Normal renal cortex. The right cortex measures 1.5 cm. Thereisa 7 mm x 6 mm x 5 mm cyst in t he upper pole. There is no righthydronephrosis. IMPRESSION:Mild dilatation of the common bile duct. Signed:Cruzito Khan M.D.March 18, 2012 at 10:37:07 AM [id number] Signed GP/G P If you are the referring physician and would like to consult with theradiologist who provided this interpretation, please contact Tricia Butler at [phone]. If this radiologist is unavai lable, youwill be directed to another radiologist to assist. If you are a patient with a question regarding this report, pleasecontactyour referring physician directly. Professional Interpretation Provi ded By: [employer], Phone , Dictated on 03/18/12 0815 by Chester RAO,Kaushalranscribed on 03/18/12 1043 by ITS IMPORTSign by Chester RAO,Cruzito on 03/18/12 1043 Sign by: Cruzito Khan MD 16-Mar-2012 TUYET 58 U/L (Normal) Comments: DR VIERA ORDERED TSH, CMP, LIPID, CBCMD, UAC 10:19 Range: 25-115 65-Pzk-926799:19 CBCMD Comments: DR VIERA ORDERED TSH, CMP, [...] 4.2-5.4 WBC 7.1 K/mm3 (Normal) Range: 4.4-11.0 91-Mjr-912071:19 CMP Comments: DR VIERA ORDERED TSH, CMP, [...] 7-18 GLU 98 mg/dL (Normal) Range: 70-110 25-Unb-308230:19 LIPASE 259 U/L (Normal) Comments: DR VIERA ORDERED TSH, CMP, LIPID, CBCMD, UAC Range: 70-290 24-Frf-108187:19 LIPID Comments: DR VIERA ORDERED TSH, CMP, [...] TSH, CMP, LIPID, CBCMD, UAC Range: 0.358-3.74 72-Jyn-139540:19 UAC Comments: DR VIERA ORDERED TSH, CMP, [...] (Normal) UCLAR CLEAR (Normal) UCOL YELLOW (Normal) 82-Ozx-431805:39 Urinalysis, Office (42811) UA - BILIRUBIN Negative (Normal) UA - BLOOD Negative (Normal) UA - GLUCOSE Negative (Normal) UA - KETONES Negative mg/dL (Normal) UA - LEUKOCYTE ESTERASE Trace (Normal) UA - NITRITE Negative (Normal) UA - PH 6.0 (Normal) UA - PROTEIN Negative mg/dL (Normal) UA - SPECIFIC GRAVITY 1.015 (Normal) URINE UROBILINGN FARIBA Normal mg/dL (Normal) TIMED 60-Mtd-449507:02 CUT See Note (Normal) Comments: Normal throat bhavesh isolated. No beta-hemolyticstreptococcus isolated. 88-Vsi-858342:37 Rapid Strep Test, Office (80806) Rapid Strep Test, Office Negative (Normal) :58 [...] Sign by : Shannon RAO,Marilia 27-May-2011 ART 76568 81 U/L (Abnormal) Range: 12-68 12:07 78-Del-620533:07 XOCHILT DIR SEMI-QL Comments: appt 06/03/11 XOCHILT DIRECT 33 AU/mL (Normal) 39-Xjn-298409:07 ASO 6031 94.6 {IU/mL} (Normal) Range: 0.0-200.0 Comments: Performed at: [address] [place], [place] [id number] Director: Leana Villar MD, Phone: [phone] C-REACTIVE PROT 16.20 mg/L (Abnormal) Range: [...] SED RATE 36 mm/h (Abnormal) Range: 0-30 35-Nnz-258985:07 RHEUMATOID FAC < 10.0 {IU/mL} (Normal) 77-Rif-659209:07 TSH 2.21 {uIU/mL} (Normal) Range: 0.358-3.74 78-Vtl-517080:20 CHEST, PA AND LATERAL Radiology Report See [...] throat bhavesh isolated. No beta-hemolyticstreptococcus isolated. 8:38 38-Dax-138769:34 PPD (10010) SKIN TEST INTRADERMAL TB negative (Normal) 96-Xak-692270:23 LQDPAP [id number] PAPSMR Comment (Normal) Comments: The Pap smear [...] no HPV testing was performed. .Performed at: [address] [id number] Director: Young Pope MD, Phone: [phone] COMM . (Normal) DIAGN Comment (Normal) Comments: NEGATIVE FOR INTRAEPITHELIAL LESION AND MALIGNANCY.CELLULAR CHANGES ASSOCIATED WITH ATROPHY ARE PRESENT.THIS SPECIMEN WAS RESCREENED PART OF OUR [employer] TRAINER PROGRAM.Satisfactory for evaluation. Endocervical component may not bedistinguished in cases of atrophy.Shayla Wright, Podiatric Assistant (ASCP)Zahraa Orr, Supervisory Podiatric Assistant (ASCP)This liquid based ThinPrep(R) pap test was screened withthe use of an image guided system. 77-Rwm-077441:41 BILAT SCRN DIGITAL & CAD Radiology Report [...] 02/26/11 1333 Sign by: Cruzito Khan MD 25-Aja-977308:37 DEXA BONE DENSITY STUDY (HP) Radiology Report [...] (-0.1) / Z-score (0.5) On the lateral filler spreader film, there is a grade 2 anterior [...] Foundation [email or web address] Dictated on 02/26/11 1146 by Kaushal Khan MDranscribed on 02/26/11 1338 by ITS IMPORTSign by Regi Khan MD on 02/26/11 1339 Sign by: Cruzito Khan MD 21-Vdp-50092:19 CBCD,SMEAR DIFF PLT EST SeeNote (Normal) Comments: [...] CHOL 206 mg/dL (Abnormal) Comments: <200 mg/dL Lnoikhenb798-221 mg/dL Borderline>240 mg/dL High Risk :26 TSH 1.24 {uIU/mL} (Normal) Range: 0.358-3.74 76-Hmi-543184:19 BILAT SCRN DIGITAL & CAD Radiology Report See Note (Normal) Comments: Exam Number: [id number] DIGITAL BILATERAL MAMMOGRAM Digital oblique and craniocaudal [...] been no change since priorexamination. Routine ankit l mammographic followup is suggested. IMPRESSION1. Scattered bilateral microcalcifications. There has been no changesince prior examination.2. Routine annual mammographic followup is suggested.3. Benign. BIRADS Category 2. A letter regarding the results has been sent to the patient. This interpretation was rendered by a radiologist certified under theMammography Quality Standards Act of 1992 (M QSA). The mammograms werealso examined with computer-aided detection software ([employer]panel, [employer] Reported By: CRUZITO KHAN :53 CBCD,SMEAR [...] :53 TSH 1.60 {uIU/mL} (Normal) Range: 0.358-3.74 :13 CULTURE, WOUND Comments: RIGHT CHEST WALL LESION GRAM STAIN See Note (Normal) Comments: GRAM STAIN 1+ RED CELL STROMA 2+ WHITE BLOOD CELLS NO ORGANISMS SEEN :11 LQD PAP [id number] Comments: CYTOLOGY INFORMATION:- CLINICAL INFORMATION: POSTMENOPAUSAL- DATE LMP/MENOPAUSE: NOT GIVEN MENOPAUSE- COLLECTION VIAL: Thin Prep Vial- GEOGRAPHICAL HISTORIAN SOURCE: CERVICAL/ENDOCERVICAL- COLLECTION TECHNIQUE: BRUSH/SPATULA ADEQ Comment [...] no HPV testing was performed. .Performed At: [address] [id number] PAPSMR Comment (Normal) Comments: The Pap smear is a screening test designed to aid in thedetection of premalignant and malignant conditions of theuterine cervix. It is not a diagnostic procedure andshould not be used as the sole means of detecting cervicalcancer. Both false-positive and false-negative reports dooccur. . PERFORM Comment (Normal) Comments: Kimberley Borges, Podiatric Assistant (ASCP) SIGN Comment (Normal) Comments: Wendi Elaine MD, Pathologist 3-Qeg-617496:22 [facility]eder[facility] DIGITAL & CAD Radiology Report See Note (Normal) Comments: Exam Number: [id number] MAMMOGRAM, BILATERAL SCREENING DIGITAL AND CAD HISTORYRoutine [...] werealso examined with computer- aided detection software ([employer]panel, [employer].). Reported By: SEAN AMAYA M.D. 7-Cft-477384:21 DEXA BONE DENSITY STUDY () Radiology Report See Note (Normal) Comments: Exam Number: [id number] BONE DENSITOMETRY HISTORYPostmenopausal. TECHNIQUE Bone densitometry of [...] density is measured at 0.1% greater than ka6874. Digital lateral view for evaluation of vertebral deformityonly demonstrates no obvious compression fractures. The T-value ofthe left femoral neck is -0.8 which is normal. The T-value of thetotal hip is -0.3 which is normal. Bone mineral density is measuredat 5% less than in 2004. IMPRESSIONBone d ensitometry of the lumbar spine and left hip is within normallimits. Reported By: SEAN AMAYA M.D. 46-Dip-95270:08 CBCD,SMEAR DIFF BAND 3 % (Normal) Range: [...] mg/dL (Normal) Range: 1.5-2.2 :08 T3, FREE 50373 2.9 pg/mL (Normal) Range: 2.3-4.2 Comments: Performed At: [address] [id number] T4 FREE,DIRECT 1.0 ng/dL (Normal) Range: 0.89-1.76 :08 TSH 1.40 {uIU/mL} (Normal) Range: 0.34-4.82 46-Czb-047378:59 LOWER EXT/JT ONLY (ROUTINE) Radiology Report See Note (Normal) Comments: Exam Number: [id number] MRI OF THE RIGHT KNEE STATEMENTRight knee [...] medial meniscus. Reported By: ABDULAZIZ HENRY M.D. 63-Gyt-234761:21 KNEE,4 OR MORE VIEWS (MT) Radiology Report See Note (Normal) Comments: Exam Number: [id number] RIGHT KNEE, 4 VIEWS REASON FOR EXAMINATIONRight [...] throat bhavesh isolated. No beta-hemolyticstreptococcus isolated. :30 07-Zxl-466808:20 Rapid Strep Test, Office (41681) Comments: neg Rapid Strep Test, Office Negative [...] Report See Note (Normal) Comments: Exam Number: [id number] COMPUTED TOMOGRAPHY OF THE ABDOMEN WITH ORAL AND IV CONTRAST INDICATIONA 57-year-old female with epigastric pain, nausea. COMPARISONNone. TECHNIQUEContiguous transaxial images wer e obtained from the lung bases to thelevel of S1 following the uneventful administration of 100 cc Wzdhsy443 intravenously. Oral contrast was also administered. REPORTLimited [...] 47-70 WBC 10.3 K/mm3 (Normal) Range: 4.4-11.0 19-Wlw-34293:00 COMP METABOLIC Comments: CALL RESULTS TO DR [...] T PROT 6.4 g/dL (Normal) Range: 6.4-8.2 74-Rhi-59637:00 ESR Comments: CALL RESULTS TO DR MAYORGA The date and/or time of collection was not indicated on therequisition as required by state and federal law. The dateof receipt of the specimen was used as the collection dateif not supplied. SED RATE 37 mm/h (Abnormal) Range: 0-30 :13 Urinalysis, Office (66783) UA - LEUKOCYTE ESTERASE Negative (Normal) UA [...] {uIU/mL} (Normal) Range: 0.34-4.82 :13 Urinalysis, Office (89716) Comments: done-jjp UA - BILIRUBIN Negative (Normal) UA - BLOOD Negative (Normal) UA - GLUCOSE Negative (Normal) UA - KETONES Negative mg/dL (Normal) UA - LEUKOCYTE ESTERASE Negative (Normal) UA - NITRITE Negative (Normal) UA - PH 5.0 (Normal) UA - PROTEIN Negative mg/dL (Normal) UA - SPECIFIC GRAVITY 1.005 (Normal) URINE UROBILINGN FARIBA TIMED Normal mg/dL (Normal) :44 Urinalysis, Office (34937) Comments: done UA - BLOOD Hemolyzed Large [...] Plan of Care Name Dates Details Instructions Essential hypertension : Follow up in 6 [...] lumbosacral neuritis or radiculitis, unspecified Planned Observations URINE MADAY CULTURE-IDENTIFICATN (39941)Indication: History of UTI On: :37 Request TSH (11350)Indication: Acquired hypothyroidism On: :35 Request URINALYSIS, W/ MICRO (43243)Indication: Essential hypertension On: :34 Request MICROALBUMIN: CREATININE RATIO (92635) AND (17796)Indication: Essential hypertension On: :34 Request METABOLIC PANEL, COMPREHENSIVE (98195)Indication: Essential hypertension On: :34 Request CBC W/AUTO DIFF WBC (56092)Indication: Essential hypertension On: :34 Request LIPOPROTEIN, BLD, BY NMR (69054)Indication: Other and unspecified hyperlipidemia On: :34 Request CALCIFIDIOL (13384) VIT D 25Indication: Vitamin D deficiency, unspecified On: :34 Request URINE MADAY CULTURE-IDENTIFICATN (62381)Indication: URINARY TRACT INFECTION, SITE NOT SPECIFIED On: 80-Cap-877441:53 Request Comments: post treatment culture Stool Guiac Test, Office (Medicare) (G0107)Indication: Hypercholesteremia On: 4-Krb-493390:04 Request URINALYSIS, W/ MICRO (54001)Indication: Hematuria On: 04-Wds-654518:41 Request Vitamin D Hydroxy (68537)Indication: Vitamin D deficiency, unspecified On: 25-Cji-145924:40 Request CBC W/AUTO DIFF WBC (26499)Indication: Essential hypertension On: 17-Rft-605143:40 Request METABOLIC PANEL, COMPREHENSIVE (87438)Indication: Essential hypertension On: 73-Tlb-509583:39 Request LIPID PANEL (24764)Indication: Hypercholesteremia On: 60-Hwo-858282:39 Request TSH (30079)Indication: Acquired hypothyroidism On: 72-Htg-624497:39 Request Vitamin D Hydroxy (31057)Indication: Vitamin D deficiency, unspecified On: 54-Qrx-069485:15 Request METABOLIC PANEL, COMPREHENSIVE (54259)Indication: Essential hypertension On: 51-Weo-139639:14 Request LIPID PANEL (97790)Indication: Other and unspecified hyperlipidemia On: 96-Qkb-684886:14 Request FECAL OCCULT- Tubes sent home (95431)Indication: Encounter for screening for malignant neoplasm of cervix On: 55-Bow-843286:09 Request Thin prep Pap (37275)Indication: Well woman exam On: 08-Cdr-046682:46 Request LIPID PANEL (10421)Indication: Hypercholesteremia On: 90-Rqi-729541:23 Request MADAY CULTURE-OTHER (66363)Indication: Cellulitis On: :22 Request METABOLIC PANEL, COMPREHENSIVE (88016)Indication: Essential hypertension On: :04 Request CBC WITH MANUAL DIFF (13227)Indication: Essential hypertension On: 67-Iol-105623:04 Request Vitamin D Hydroxy (83552)Indication: Vitamin D deficiency, unspecified On: :04 Request TSH (21516)Indication: Acquired hypothyroidism On: :04 Request LIPID PANEL (02429)Indication: Other and unspecified hyperlipidemia On: 41-Frg-898962:04 Request Vitamin D Hydroxy (84455)Indication: Vitamin D deficiency, unspecified On: :25 Request METABOLIC PANEL, COMPREHENSIVE (16217)Indication: Essential hypertension On: :25 Request LIPID PANEL (80966)Indication: Other and unspecified hyperlipidemia On: :25 Request Amylase (58133)Indication: Abdominal pain, acute, right upper quadrant On: 21-Kux-127486:05 Request Lipase (31308)Indication: Abdominal pain, acute, right upper quadrant On: 63-Lck-296972:05 Request THROAT CULTURE (69912)Indication: ACUTE PHARYNGITIS (462.) On: 26-Fxh-627060:37 Request CALCIFEDIOL (82712)Indication: Vitamin D deficiency, unspecified On: :35 Request URINALYSIS, W/ MICRO (96227)Indication: Essential hypertension On: 08-Tms-442041:50 Request LIPID PANEL (50598)Indication: Other and unspecified hyperlipidemia On: 85-Efe-151239:49 Request CBC WITH MANUAL DIFF (24015)Indication: Essential hypertension On: :49 Request METABOLIC PANEL, COMPREHENSIVE (07496)Indication: Essential hypertension On: 07-Ekh-920003:49 Request TSH (09194)Indication: Acquired hypothyroidism On: :49 Request SKIN TEST INTRADERMAL TB (52701)Indication: Erythema nodosum On: :49 Request Comments: Site- Left forearm MADAY CULTURE-OTHER (88764)Indication: Erythema nodosum On: :37 Request ANTISTREPTOLYSIN O-TITER (99117)Indication: Erythema nodosum On: 15-Bil-205862:33 Request TSH (21717)Indication: Fatigue On: :22 Request URINALYSIS, W/ MICRO (11314)Indication: Erythema nodosum On: :20 Request C-REACTIVE PROTEIN (57863)Indication: Erythema nodosum On: :20 Request SED RATE ERYTHROCYTE (84789)Indication: Erythema nodosum On: :20 Request METABOLIC PANEL, COMPREHENSIVE (04427)Indication: Erythema nodosum On: 25-Vrl-090934:20 Request CBC WITH MANUAL DIFF (68561)Indication: Erythema nodosum On: :20 Request XOCHILT (ANTINUCLEAR ANTIBODY) (57689)Indication: Erythema nodosum On: :19 Request RHEUMATOID FACTOR-QUANT (03435)Indication: Erythema nodosum On: :19 Request Thin prep Pap (63044)Indication: Well woman exam On: :17 Request URINALYSIS, W/ MICRO (20026)Indication: Essential hypertension On: :07 Request CBC WITH MANUAL DIFF (69840)Indication: Essential hypertension On: :07 Request LIPID PANEL (46753)Indication: Other and unspecified hyperlipidemia On: :06 Request TSH (90866)Indication: Acquired hypothyroidism On: :06 Request METABOLIC PANEL, COMPREHENSIVE (83148)Indication: Essential hypertension On: :06 Request METABOLIC PANEL, COMPREHENSIVE (78897)Indication: Essential hypertension On: 31-Cgm-109912:53 Request TSH (81962)Indication: Acquired hypothyroidism On: 59-Xwe-317061:53 Request LIPID PANEL (90141)Indication: Other and unspecified hyperlipidemia On: 09-Mfi-821396:53 Request LIPID PANEL (90844)Indication: Other and unspecified hyperlipidemia On: 95-Gez-018932:31 Request METABOLIC PANEL, COMPREHENSIVE (07706)Indication: Essential hypertension On: 21-Okh-822839:30 Request CBC WITH MANUAL DIFF (29269)Indication: Essential hypertension On: 03-Oji-330906:30 Request TSH (35319)Indication: Acquired hypothyroidism On: 10-Cdd-878163:30 Request MADAY CULTURE-OTHER (49877)Indication: Neoplasm of uncertain behavior of skin On: 00-Duy-694806:26 Request Thin prep Pap (19404)Indication: Well woman exam On: 81-Ydf-800760:00 Request Magnesium (08145)Indication: Palpitations On: 82-Lsg-031712:12 Request T4, FREE (THYROXINE) (06348)Indication: Palpitations On: 09-Tps-982695:12 Request T3, FREE (TRIDOTHYRONINE) (61842)Indication: Palpitations On: 18-Pgf-063689:11 Request CBC WITH MANUAL DIFF (29452)Indication: Essential hypertension On: 94-Nbi-700956:11 Request METABOLIC PANEL, COMPREHENSIVE (28765)Indication: Essential hypertension On: 37-Eob-536723:10 Request TSH (02260)Indication: Acquired hypothyroidism On: 84-Xqp-134149:10 Request LIPID PANEL (83028)Indication: Other and unspecified hyperlipidemia On: 80-Oew-316566:10 Request METABOLIC PANEL, COMPREHENSIVE (96667)Indication: Essential hypertension On: 58-Tjt-637837:06 Request URINALYSIS W/O MICRO (75460)Indication: Essential hypertension On: 49-Ugu-062176:05 Request TSH (75540)Indication: Acquired hypothyroidism On: 83-Vlx-310015:05 Request HEPATIC FUNCTION PANEL (83844)Indication: Other and unspecified hyperlipidemia On: 00-Shu-911388:05 Request LIPID PANEL (31721)Indication: Other and unspecified hyperlipidemia On: 20-Vhk-514873:05 Request FERRITIN (42784)Indication: Other and unspecified hyperlipidemia On: 17-Xsa-203131:53 Request HEPATIC FUNCTION PANEL (64902)Indication: Other and unspecified hyperlipidemia On: 04-Bfr-572704:53 Request LIPID PANEL (32402)Indication: Other and unspecified hyperlipidemia On: 28-Rtk-574267:53 Request MADAY CULTURE-OTHER (38280)Indication: ACUTE PHARYNGITIS (462.) On: 01-Uis-101114:20 Request CBC WITH MANUAL DIFF (05690)Indication: Essential hypertension On: 83-Gyu-983971:26 Request LIPID PANEL (23676)Indication: Other and unspecified hyperlipidemia On: 21-Bef-440526:22 Request METABOLIC PANEL, COMPREHENSIVE (84087)Indication: Hyponatremia On: :22 Request TSH (98897)Indication: Acquired hypothyroidism On: : Request METABOLIC PANEL, COMPREHENSIVE (36323)Indication: Hyponatremia On: 93-Jde-071269:00 Request CBC WITH MANUAL DIFF (89385)Indication: Anemia, unspecified On: 72-Gvq-063605:00 Request SED RATE ERYTHROCYTE (52184)Indication: Epigastric pain On: 05-Pvz-897411:03 Request C-REACTIVE PROTEIN (60622)Indication: Epigastric pain On: 09-Nbq-248005:03 Request METABOLIC PANEL, COMPREHENSIVE (09887)Indication: Epigastric pain On: 22-Msh-802289:02 Request CBC WITH MANUAL DIFF (27291)Indication: Epigastric pain On: 34-Krp-918929:02 Request METABOLIC PANEL, COMPREHENSIVE (48073)Indication: Essential hypertension On: 35-Nsk-115231:49 Request TSH (20104)Indication: Acquired hypothyroidism On: 42-Gdh-220816:42 Request LIPID PANEL (36690)Indication: Other and unspecified hyperlipidemia On: 73-Ubb-093197:42 Request URINE MADAY CULTURE (FARIBA COL COUNT) (44790)Indication: Dysuria On: 2-Hap-927249:04 Request LIPID PANEL (93960)Indication: Other and unspecified hyperlipidemia On: 7-Jfd-590551:05 Request MICROALBUMIN URINE QUANT (53573)Indication: Essential hypertension On: 1-Eur-599666:05 Request TSH (18938)Indication: Acquired hypothyroidism On: 3-Lfz-904742:04 Request URINALYSIS W/O MICRO (76728)Indication: Essential hypertension On: :04 Request METABOLIC PANEL, COMPREHENSIVE (64348)Indication: Essential hypertension On: :04 Request CBC WITH MANUAL DIFF (18038)Indication: Essential hypertension On: :04 Request Planned Encounters Medical; 6 Month FU - On: 12-Jan-2019 9:45 [facility] Windy Mayorga DO, DO, Kathleen Planned Procedures ELECTROCARDIOGRAM, COMPLETE (ECG) On: 14-Jul-2018 Intent (27170)By: Windy Mayorga DO Comments: nsr no acute chg - poor R wave progression and nonspecific st flattening Windy Mayorga DO Flu Vaccine (Quadrivalent) 74845Cn: On: 11-Jun-2018 Intent Visit, Nurse Comments: Lot #:[id number] date: 7-50-39Ieyycg given:0.5mlRoute: IMSite given:L DltdGiven by: Melissa and ABN signed Fluarix Ultrasound - Breast - LeftBy: Concetta On: 04-Sep-2017 Intent Windy COLEY DO, Kathleen VBEP-RI-UYFG BEHAVIORAL COUNSELING On: 29-Jun-2017 Intent FOR OBESITY, 15 MINUTES (G0447)By: Windy Mayorga DO, DO, Kathleen DEXA SCAN AXIAL SKELETON (71005)By: On: 29-Jun-2017 Intent Windy Mayorga DO, DO, Kathleen SCREENING DIGITAL TOMOSYNTHESIS OF On: 29-Jun-2017 Intent BREAST (52833)By: Windy Mayorga DO, DO, Kathleen ELECTROCARDIOGRAM, COMPLETE (ECG) On: 29-Jun-2017 Intent (70128)By: Windy Mayorga DO Comments: nsr no acute chg Windy Mayorga DO Flu Vaccine (Quadrivalent) 67039Be: On: 17-Jun-2017 Intent Visit, Nurse Comments: Lot #[id number]/15/18ite-L dltd, IMDose prefilled syringegiven by:DAGMAR Mathis and ABN signed MAMMOGRAM, SCREENING, BOTH BREAST On: 16-May-2016 Intent (04092)By: Windy Mayorga DO, DO, Kathleen Flu Vaccine (Quadrivalent) 57007Ts: On: 07-May-2016 Intent ConcettaWindy phipps DO Concetta COLEY, Comments: Lot:[id number]:02/27/17Dose:0.5mLRoute:IMSite:L DltdGiven By:GENTRY signed Windy ELECTROCARDIOGRAM, COMPLETE (ECG) On: 07-May-2016 Intent (68034)By: Windy Mayorga DO Comments: nsr no acute chg Concetta COLEY Windy Aerosol Treatment (76843)By: Terri On: 26-Mar-2016 Intent ADMITTANCE ATTENDANT, Lucretia Radiology - Chest- PA and LatBy: On: 03-Dec-2015 Intent Fast DO Raya A Aerosol Treatment (93797)By: Terri On: 12-Nov-2015 Intent ADMITTANCE ATTENDANT, Lucretia Flu Vaccine (Quadrivalent) 83560Wm: On: 07-Jun-2015 Intent Visit, Nurse Comments: Lot #[id number]-L dltd, IMDose prefilled syringegiven by:DAGMAR Mathis and DANNIELLE signed Pap Smear, Medicare (Q0091)By: Juve On: 11-Apr-2015 Intent DO Raya A MAMMOGRAM, SCREENING, BOTH BREAST On: 11-Apr-2015 Intent (80264)By: Cuauhtemoc Viera DOa A Aerosol Treatment (04193)By: Terri On: 09-Apr-2015 Intent ADMITTANCE ATTENDANT, Lucretia Radiology - Sacrum/CoccyxBy: Fast On: 04-Oct-2014 Intent DO Raya A ADMINISTRATION OF INFLUENZA VIRUS On: 09-Jun-2014 Intent VACCINE (G0008)By: Visit, Nurse FLU VAC, SPLIT, >3 YEARS, INTRAMUSC On: 09-Jun-2014 Intent (98339)By: Cuauhtemoc Viera DOa A Comments: Lot:[id number]:02/27/15Dose:0.5mLRoute:IMSite:L DltdGiven By:GENTRY signed MAMMOGRAM, SCREENING, BOTH BREAST On: 29-Mar-2014 Intent (88871)By: Juve COLEY Raya A Comments: mar EKG (67553)By: Cuauhtemoc Viera DOa A On: 29-Mar-2014 Intent Comments: ekg showed normal sinus rhythym, normal axis, no acute st/t wave changes no change in the previous t wave inversions Eprescribed prescriptions (G8553)By: On: 13-Jan-2014 Intent Donna Locke CNP Eprescribed prescriptions (G8553)By: On: 26-Oct-2013 Intent Windy Mayorga DO, DO, Kathleen Radiology - Knee - RightBy: Concetta On: 26-Oct-2013 Intent Windy COLEY DO, Windy Eprescribed prescriptions (G8553)By: On: 17-Aug-2013 Intent Renetta Hough CLAYTON FLU VAC, SPLIT, >3 YEARS, INTRAMUSC On: 19-Jul-2013 Intent (93887)By: Raya Viera DO Comments: lot [id number] 2014site/route L olga, IMamt 0.5mlVIS and ABN signed when applicableChelsea, [facility] ADMINISTRATION OF INFLUENZA VIRUS On: 19-Jul-2013 Intent VACCINE (G0008)By: Raya Viera DO Eprescribed prescriptions (G8553)By: On: 19-Jul-2013 Intent Jennifer Coronado Pulse Oximetry (36907)By: Randall On: 22-Apr-2013 Intent THALIA EKG (71009)By: Jennifer Coronado On: 28-Jan-2013 Intent Comments: ekg showed normal sinus rhythym, normal axis, no acute st/t wave changes MAMMOGRAM, SCREENING, BOTH BREASTS On: 28-Jan-2013 Intent (69356)By: Raya Viera DO Comments: end march Eprescribed prescriptions (G8553)By: On: 09-Sep-2012 Intent Concetta COLEY, Windy Mayorga DO, Windy IMMUNIZ ADMNIN, 1 VAC, SNGL/COMBO On: 26-Jul-2012 Intent (08369)By: Raya Viera DO Eprescribed prescriptions (G8553)By: On: 26-Jul-2012 Intent Jennifer Coronado PNEUM VAC ADLT/IMUMNOSPR, SBC/INTRM On: 26-Jul-2012 Intent (43129)By: Raya Viera DO Comments: Lot:[id number]:Dose:0.5mLRoute:IMSite:shiva harrellGiven By:GENTRY signed Breast Screening - BilateralBy: Juve On: 29-Mar-2012 Intent Raya COLEY Nuclear Medicine - HIDA w/CPKBy: On: 19-Mar-2012 Intent Chucky Donna GROVE Ultrasound - GallbladderBy: Chucky On: 15-Mar-2012 Intent Donna GROVE Eprescribed prescriptions (G8553)By: On: 19-Dec-2011 Intent Windy Mayorga DO, DO, Kathleen EKG (02591)By: Raya Viera DO On: 27-Oct-2011 Intent Comments: ekg showed normal sinus rhythym, normal axis, no acute st/t wave changes nonspecific old t wave inversion CT - ChestBy: Raya Viera DO On: 03-Jun-2011 Intent Comments: pe protocol-not stat but sometime this week Spirometry (13132)By: Juve COLEY, On: 26-May-2011 Intent Raya Arechiga Comments: good effort and curve normal Radiology - Chest- PA and LatBy: On: 26-May-2011 Intent Raya Viera DO DRAIN/INJECT, JOINT/BURSA (38620)By: On: 02-May-2011 Intent iWndy Mayorga DO, DO, Comments: 2 cc marcaine and 1 cc kenolog Windy TDAP VACCINE >7 IM (03494)By: Juve On: 11-Apr-2011 Raya Jaimes DO Comments: Lot #: [id number] date: 05/13Amount given: 0.5 mlRoute: IMSite given: left deltoidGiven by: Hwak Pardo RN EKG (27499)By: Jennifer Coronado On: 17-Feb-2011 Intent Comments: ekg showed normal sinus rhythym, normal axis, no acute st/t wave changes nonspecific t wave inversion anteriorly- not changed- Eprescribed prescriptions (G8553)By: On: 17-Feb-2011 Intent Raya Viera DO DXA, BONE DENSITY, AXIAL SKELETON On: 17-Feb-2011 Intent (34847)By: Raya Viera DO MAMMOGRAM, SCREENING, BOTH BREASTS On: 17-Feb-2011 Intent (57158)By: Raya Viera DO Aerosol Treatment (32207)By: Juve On: 14-Aug-2010 Intent Raya COLEY Spirometry (25360)By: Cliff On: 14-Aug-2010 Intent Comments: good effort and curve -decrease small airways Radiology - Chest- PA and LatBy: On: 14-Aug-2010 Intent Raya Viera DO Pulse Oximetry (30263)By: Cliff, On: 14-Aug-2010 Intent Comments: 96% Pulse Oximetry (19662)By: Chucky GROVE, On: 31-Jul-2010 Intent Liat Aerosol Treatment (13753)By: Chucky On: 31-Jul-2010 Intent MAINE Liat Pulse Oximetry (73245)By: Chucky GROVE On: 15-Jul-2010 Intent Liat Aerosol Treatment (38690)By: Chucky On: 15-Jul-2010 Intent MAINE Liat ELECTROCARDIOGRAM, COMPLETE (ECG) On: 24-Dec-2009 Intent (97785)By: Donna Locke CNP MAMMOGRAM, SCREENING, BOTH BREASTS On: 25-Jun-2009 Intent (25796)By: Raya Viera DO Wax CurettesBy: Donna Locke CNP On: 07-Jun-2009 Intent Ear Irrigation (25747)By: Chucky On: 07-Jun-2009 Intent Donna GROVE FLU VAC, SPLIT, >3 YEARS, INTRAMUSC On: 05-Jun-2009 Intent (98210)By: Tuyet Camejo IMMUNIZ ADMNIN, 1 VAC, SNGL/COMBO On: 05-Jun-2009 Intent (98021)By: Tuyet Camejo Comments: Lot #[id number]-left deltoidgiven by:CDH DRAIN SKIN ABSCESS, SIMPLE/SINGLE On: 13-Nov-2008 Intent (50299)By: Donna Locke CNP Holter Moniter (17703)By: Randall On: 12-Sep-2008 Intent THALIA Comments: placement Pt given diary and instructions she voices 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 DXA, BONE DENSITY, AXIAL SKELETON On: 16-Aug-2008 Intent (12522)By: Raya Viera DO MAMMOGRAM, SCREENING, BOTH BREASTS On: 16-Aug-2008 Intent (32958)By: Raya Viera DO Holter Monitor 24 hrsBy: Juve COLEY, On: 16-Aug-2008 Intent Raya A EKG (79916)By: Jennifer Coronado On: 16-Aug-2008 Intent Comments: ekg showed normal sinus rhythym, normal axis, no acute st/t wave changes t wave inversion anteriorly unchanged IMMUNIZ ADMNIN, 1 VAC, SNGL/COMBO On: 16-Jun-2008 Intent ([id number])By: Renetta Hough LPN FLU VAC, SPLIT, >3 YEARS, INTRAMUSC On: 16-Jun-2008 Intent ([id number])By: Renetta Hough LPN Comments: 0.5cc given im lt olga H.Horn SPECIMEN HNDLNG/TRNSPRT, OFFC > LAB On: 18-Jan-2008 Intent ([id number])By: Jennifer Coronado CT - AbdomenBy: Cuauhtemoc Viera DOa A On: 19-Jul-2007 Intent Comments: stat tonight call wet read EKG ([id number])By: THALIA Pereira On: 21-Jun-2007 Intent Comments: ekg showed normal sinus rhythym, normal axis, no acute st/t wave changesasymetric twave inversion- no change FLU VAC, SPLIT, >3 YEARS, INTRAMUSC On: 21-Jun-2007 Intent ([id number])By: THALIA Pereira Comments: Lot #:Expiration date:Amount given:Route: IMSite given:left deltoidGiven by: iveth Lot # [id number] exp 02-28-08 IMMUNIZ ADMNIN, 1 VAC, SNGL/COMBO On: 21-Jun-2007 Intent ([id number])By: THALIA Pereira FLU VAC, SPLIT, >3 YEARS, INTRAMUSC On: 06-Jul-2006 Intent ([id number])By: THALIA Pereira IMMUNIZ ADMNIN, 1 VAC, SNGL/COMBO On: 06-Jul-2006 Intent ([id number])By: THALIA Pereira Comments: Lot #:Expiration date:Amount given:Route: [...] Hypercholesteremia : DISCONTINUED - METABOLIC PANEL, COMPREHENSIVE ([id number]) Indication: Hypercholesteremia Hypercholesteremia : DISCONTINUED - LIPID PANEL (96155) Indication: Hypercholesteremia BMI 30.0-30.9,adult : How to [...] Indication: Essential hypertension Encounters Office Visit On: 14-Jul-2018 9:03 Encounter Reason: [...] The patient does have durable power of ged teacher and living will. The patient has noticed nothing from the geriatic depression scale. Other providers contributing to the patient's care are collections professional and artist and repertoire manager. Encounter Diagnosis: BMI 30.0-30.9,adult, Nonsmoker, Acquired hypothyroidism, [...] The patient does have durable power of ged teacher and living will. The patient has noticed [...] The patient does have durable power of ged teacher and living will. The patient has noticed [...] Well Women Exam: no breast mass no [id number] Encounter Diagnosis: Annual Medicare Physical (V70.0), Well [...] The patient does have durable power of ged teacher and living will. The patient has noticed nothing from the geriatic depression scale. Other pr oviders contributing to the patient's care are collections professional (Dr. Candelario), gastrologist (Dr. Marion) and other: [...] thigh pain go ne- the therapy at [facility] helped - bp stable and no more [...] Knee Pain: she has been back to [facility] [place]: 25-Feb-2012 9:37 and 3 seesions of [...] of angina ,history of CHF ,history of VT ,smoking ,syncope or use of decongestants. Note [...] otc now but took aleve-- did help Nataleeer Diagnosis: Knee pain (719.46) [facility] [...] weight :. 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 on thursday Encounter Diagnosis: Hypertension (401.0), recurrent [...] Medicine End: 03-Jun-2006 8:09 Payers MedicareAARP/Alphonse Short; a guarantor
--- OUTSIDE RECORDS SUMMARY | 2018-11-21 02:21 | XMS RPT_ITS | Continuity of Care Document ---
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 medrol dose eyad then go to [employer] tid. will be traveling. if not better [...] Visit Report Result: Comments: See Note; NOTES: [address] [address] OFFICE VISIT Date of Service: 10/10/17 MR#: [id number] Acct: [id number] Name: JULIET SHORT #: [id number] : 1950 Provider: Cuba GONSALVES Age/Sex: 67/F Location[place] [facility] Status: Signed Intake Vital Signs10/10/17 Height 5 [...] 5 Days #10 10/10/17 [History Confirmed 10/10/17] [facility] Medical History Knee pain (Acute) Thyroid [...] the above. This note was generated with Truveris dictation software. It may contain incorrect words, [...] Limited Unilateral Result: Comments: See Note; NOTES: [facility] Imaging Services [address] [place] [address] Breast Limited Unilateral MR#: [id number] Acct: [id number] Name: JULIET SHORT Rep #: [id number] : 1950 F 67 From: Cruzito Khan MD PCP: Windy Mayorga DO Status: REG CLI Study: Breast Limited Unilateral Date of Exam: 09/07/17 Exam# [id number] Ordering Dr: Windy Mayorga DO STUDY: ULTRASOUND [...] Cruzito Khan MD at 15:14 EST Tel [phone], Service support , CC: Windy Mayorga DO Goodwill Ambassador: Signed 03-Sep-2017 Dexa Bone Density Study (HP) Result: Comments: See Note; NOTES: [facility] Imaging Services [address] [place] [address] Dexa Bone Density Study (HP) MR#: [id number] Acct: [id number] Name: JULIET SHORT Rep #: [id number] : 1950 F 67 From: Cruzito Khan MD PCP: Windy Mayorga DO Status: REG CLI Study: Dexa Bone Density Study (HP) Date of Exam: 09/08/17 Exam# [id number] Ordering Dr: Delfina Mayorga DO STUDY: DUAL [...] Cruzito Khan MD at 8:30 EST Tel [phone], Service support , CC: Windy Mayorga DO Goodwill Ambassador: Signed 03-Sep-2017 SCREENING MAMM (CAD), BILAT Result: Comments: See Note; NOTES: [facility] Imaging Services [address] [place] [address] SCREENING MAMM (CAD), BILAT MR#: [id number] Acct: [id number] Name: JULIET SHORT Rep #: [id number] : 1950 F 67 From: Cruzito Khan MD PCP: Windy Mayorga DO Status: REG CLI Study: SCREENING MAMM (CAD), BIL Date of Exam: 09/03/17 Exam# [id number] Ordering Dr: Windy Mayorga DO MAMMOGRAPHY - [...] delay biopsy of a clinically suspicious abnormality. [id number] Electronically Signed: Cruzito Khan MD at 14:17 EST Tel [phone], Service support , CC: Windy Mayorga DO Goodwill Ambassador: Signed 30-Mar-2017 Inital Evaluation (1) - PT Result: Comments: See Note; NOTES: [facility] Physical [facility] [facility] [place], [place] [address] Fax REHABILITATION SERVICES INITIAL EVALUATION MR#: [id number] Acct: [id number] Name: JULIET SHORT Rep #: [id number] : 1950 67 From: Kimberley Clemente DPT Referring Dr.: Cyndy Ann DPM Status: REG RCR Insurance: MEDICARE P ART A B AARP Patient's Visit Information JULIET SHORT is a 67 year old F referred to Physical Therapy by Cyndy Ann DPM with a diagnosis of Plantar Fascitis. Date of Evaluation: 03/30/17 [facility] sical Therapist: Kimberley Clemente - Visit Plan Frequency: 2x /Week Duration: 2 Weeks Plan: Dry Needling - Subjective Subjective: Patient reports plantar fascitis on the right- has had it before and it w ent away on its own starting 3 years ago- stretches and strengthening with good shoes. This flare started in Oct when she went to [facility]- has been fighting with it since. [...] and is much better. 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 For Medicare and [facility] plans, please review the plan of care and approve it. It will need to be FAXED BACK to us at [phone] for Medicare purposes. Please let me know [...] Summary (1) Result: Comments: See Note; NOTES: [facility] [address] [facility] [place], [place] [address] Fax REHABILITATION SERVICES DISCHAR GE SUMMARY MR#: [id number] Acct: [id number] Name: JULIET SHORT Rep #: [id number] [...] please feel free to call me at [phone]. Thank you for the referral of this patient. Sincerely, Sunshine Arechiga Cro ss <Electronically signed by Cert. MAIRA Stone PTT> 11/26/16 1422 CC: Windy Mayorga DO TIFFANY Signed 29-Sep-2016 Inital Evaluation (1) - PT Result: Comments: See Note; NOTES: [facility] [address] [facility] [place] [address] Fax REHABILITATION SERVICES INITIAL EVALUATION MR#: [id number] Acct: [id number] Name: JULIET SHORT Rep #: [id number] : 1950 66 From: Cert. MAIRA Stone PTT Referring Dr.: Windy Mayorga DO Status: REG RCR Insurance: [place] iversity PART A B AAR Patient's Visit Information [...] 2X'S A WEEK. 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 [employer] SKIES. 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 For Medicare and [facility] plans, please review the plan of care and approve it. It will need to be FAXED BACK to us at [phone] for Medicare purposes. Please let me know [...] AND CAD Result: Comments: See Note; NOTES: [facility] Imaging Services [address] [place] [address] Verdana 4d Bilat Scrn Digital AND CAD MR#: [id number] Acct: [id number] Name: JULIET SHORT Rep #: [id number] : 1950 F 66 From: Cruzito Khan MD PCP: Windy Mayorga DO Status: REG CLI Study: Meaghan Castle Digital AND CAD Date of Exam: 06/26/16 Exam# [id number] Ordering Dr: Windy Mayorga DO MAMMOGRAPHY - [...] delay biopsy of a clinically suspicious abnormality. [id number] Electronically Signed: Cruzito Khan MD at 14:03 EDT Tel [phone], Service support [phone], CC: Windy Mayorga DO Goodwill Ambassador: Signed 26-May-2016 Chest PA and Lateral Result: Comments: See Note; NOTES: [facility] Imaging Services [address] [place] [address] Verdana 4d Chest PA and Lateral MR#: [id number] Acct: [id number] Name: JULIET SHORT Rep #: [id number] : 1950 F 66 From: Samuel Cutler MD PCP: Windy Mayorga DO Status: REG CLI Study: Chest PA and Lateral Date of Exam: 05/26/16 Exam# [id number] Ordering Dr: Gatito Laurent MD STUDY: X-RAY [...] MD at 0:00 EDT , Service support [phone], CC: Windy Mayorga DO; Gatito Laurent MD Goodwill Ambassador: Signed 03-Dec-2015 Chest PA and Lateral Result: Comments: See Note; NOTES: [facility] Imaging Services [address] [place] [address] Verdana 4d Chest PA and Lateral MR#: [id number] Acct: [id number] Name: JULIET SHORT Rep #: [id number] : 1950 F 65 From: Rush Arauz MD PCP: Raya Viera DO Status: REG CLI Study: Chest PA and Lateral Date of Exam: 12/03/15 Exam# [id number] Ordering Dr: Wyatt Viera ebra COLEY STUDY: [...] at 6:54 EDT Tel , Service support [phone], RAD/Chest PA and Lateral IMPRESSION: No acute cardiopulmonary disease is seen, although I suspect some inters titial lung disease or mild fibrotic changes as could be seen with parenchymal phase of sarcoidosis, interval regression of the hilar prominence or adenopathy previously demonstrated. Electronically Signed: Donnie Arauz MD at 6:54 EDT Tel , Service support [phone], CC: Raya Viera DO Goodwill Ambassador: Signed 03-Dec-2015 Spirometry (39337) Comments: good effort and curve normal- alot of coughing Result: 27-Apr-2015 Bilat Scrn Digital AND CAD Result: Comments: See Note; NOTES: [facility] Imaging Services [address] [facility] [place] [address] Breast Imaging Report MR#: [id number] Acct: [id number] Name: JULIET SHORT Rep #: [id number] : 1950 F 65 From: Cruzito Khan MD PCP: Raya Viera DO Status: REG CLI Study: Bilat Scrn Digital AND CAD Date of Exam: 04/27/15 Exam# [id number] Ordering Dr: Raya Viera DO MAMMOGRAPHY - [...] these results will be sent to the [facility] ient by the facility within 30 days. Approximately 10% of breast cancers are not detected by mammography. A normal mammogram should not delay biopsy of a clinically suspicious abnormality. Electro nically Signed: Cruzito Khan MD at 8:58 EDT Tel [phone], Service support [phone], CC: Raya Viera DO Goodwill Ambassador: Signed 05-Oct-2014 Sacrum-Coccyx min 2 Views Result: Comments: See Note; NOTES: [facility] Imaging Services [address] [facility] [place] [address] Radiology Report MR#: [id number] Acct: [id number] Name: JULIET SHORT Rep #: [id number] : 1950 F 64 From: Mahendra Bedoya DO PCP: Raya Viera DO Status: REG CLI Study: Sacrum-Coccyx min 2 Views Date of Exam: 10/05/14 Exam# [id number] Ordering Dr: Raya Viera DO STUDY: X-RAY [...] Mahendra Bedoya DO at 17:00 EST Tel [phone], Service support [phone], CC: Raya Viera DO Goodwill Ambassador: Signed 26-Apr-2014 Meaghan Castle Digital & CAD Result: Comments: See Note; NOTES: [facility] Imaging Services [address] [place] [address] Breast Imaging Report MR#: [id number] Acct: [id number] Name: JULIET SHORT Rep #: [id number] : 1950 F 64 From: Cruzito Khan MD PCP: Raya Viera DO Status: REG CLI Exam# [id number] Ordering Dr: Raya Viera DO MAMMOGRAPHY - [...] Cruzito Khan MD at 9:13 EDT Tel [phone], Service support [phone], CC: Raya Viera DO Goodwill Ambassador: Signed 26-Oct-2013 Knee 4 or More Views Result: Comments: See Note; NOTES: [facility] Imaging Services [address] [place] [address] Radiology Report MR#: [id number] Acct: [id number] Name: JULIET SHORT Rep #: [id number] : 1950 F 63 From: Cruzito Khan MD PCP: Raya Viera DO Status: REG CLI Study: Knee 4 or More Views Date of Exam: 10/26/13 Exam# [id number] Ordering Dr: Windy Mayorga DO STUDY : [...] M.D. at 16:16 EST , Service support [phone], CC: Raya Viera DO; Windy Mayorga DO Goodwill Ambassador: Signed Immunization Name Dates Details Influenza (3 years and up) on: 06-Jul-2006 Influenza (3 years and up) on: 21-Jun-2007 Comments: Lot #:Expiration date:Amount given:Route: IMSite given:left deltoidGiven by: iveth Lot # [id number] exp 02-28-08 Influenza (3 years and up) on: 16-Jun-2008 Comments: 0.5cc given im lt olga H.Isra Influenza (3 years and up) on: 05-Jun-2009 Pneumococcal conjugate vaccine, 13 valent, IM on: 2014 Comments: Prevnar Family History Unknown Family Member Name Dates Details Brother 1 Comments: In good health Status: Active Father Comments: [place], Prosatate [place], HTN Status: Active Mother Comments: [...] kg/m2 Body Surface Area Calculated 1.85 m2 50-Ihr-219568:11 Temperature 99.9 f Pulse 81 /min Comments: [...] 0.00 cm Results Date Description Value Details 58-Yyh-386608:15 TSH (15849) Comments: PATIENT NOT FASTINGPERFORMED BY: [facility] [id number] TSH 1.790 {uIU/mL} (Normal) Range: 0.450-4.500 06-Bps-796981:15 T4, FREE (THYROXINE) (93425) Comments: PATIENT NOT FASTINGPERFORMED BY: [facility] Fpkbie3580 [facility] [id number] T4,Free(Direct) 1.07 ng/dL (Normal) Range: 0.82-1.77 09-Psy-145042:15 T3, FREE (TRIDOTHYRONINE) (09888) Comments: PATIENT NOT FASTINGPERFORMED BY: [facility] Acblsx0424 [facility] [id number] Triiodothyronine (T3), Free 2.7 pg/mL (Normal) Range: 2.0-4.4 20-Rpm-159650:15 Microscopic Examination Comments: PATIENT WAS FASTINGPERFORMED BY: [facility] Ylpjoy1308 [facility] [id number] Bacteria None seen (Normal) Mucus Threads Present (Normal) Epithelial Cells (non renal) 0-10 {/hpf} (Normal) Range: 0 - 10 RBC 0-2 {/hpf} (Normal) Range: 0 - 2 WBC 0-5 {/hpf} (Normal) Range: 0 - 5 58-Uxv-717064:11 URINE MADAY CULTURE-FARIBA COL Comments: PATIENT NOT FASTINGPERFORMED BY: [facility]6370 [facility] [id number] Information: SRC:UC COUNT (77299) Antimicrobial MIHEAD (Normal) Comments: S = Susceptible; [...] mL (Abnormal) Urine Final report Culture,Comprehensive (Abnormal) 64-Kvz-263051:07 Urinalysis, Office (06598) UA - LEUKOCYTE ESTERASE Small (Normal) UA - NITRITE Negative (Normal) URINE UROBILINGN FARIBA TIMED Normal mg/dL (Normal) UA - PROTEIN Negative mg/dL (Normal) UA - PH 6 (Abnormal) UA - BLOOD Negative (Normal) UA - SPECIFIC GRAVITY 1.015 (Normal) UA - KETONES Negative mg/dL (Normal) UA - BILIRUBIN Negative (Normal) UA - GLUCOSE Negative (Normal) 11-Fok-361381:16 URINE MADAY CULTURE-IDENTIFICATN Comments: PERFORMED BY: [employer] [facility] Gfpdye6049 [facility] [id number] Information: SRC:UR (61518) Antimicrobial MIHEAD (Normal) Comments: S = Susceptible; [...] mL (Abnormal) Urine Final report Culture,Comprehensive (Abnormal) 17-Xsp-661998:00 Urinalysis, Office (07179) UA - LEUKOCYTE ESTERASE Large (Normal) UA - NITRITE Positive (Normal) URINE UROBILINGN FARIBA TIMED 2 mg/dL (Normal) UA - PROTEIN Negative mg/dL (Normal) UA - PH 5.0 (Normal) UA - BLOOD Hemolyzed Small (Normal) UA - SPECIFIC GRAVITY 1.015 (Normal) UA - KETONES Negative mg/dL (Normal) UA - BILIRUBIN Negative (Normal) UA - GLUCOSE Negative (Normal) 29-Qdv-283757:12 Rapid Flu (44947 x 2) Influenza A Ag Positive A (Normal) Comments: had flu shot 32-Sop-226107:15 CALCIFIDIOL (56829) VIT D 25 Comments: PATIENT WAS FASTINGPERFORMED BY: [facility] [id number] Vitamin D, 25-Hydroxy 45.6 ng/mL (Normal) Range: 30.0-100.0 Comments: Vitamin D deficiency has been defined by the [place] of[facility] and an Endocrine Society practice guideline as alevel of serum 25-OH vitamin D less than 20 ng/mL (1,2).The Endocrine Society went on to further define vitamin Dinsufficiency as a level between 21 and 29 ng/mL (2).1. IOM ([place] of Medicine). 2010. Dietary reference intakes for calcium and D. [place]ete [place]: The National Academies Press.2. Dung MF, Ken NC, Diego ELMORE, et al. Evaluation, treatment, and prevention of vitamin D deficiency: an Endocrine Society clinical practice guideline. JCEM. 2010; 96(7):1911-30. 53-Uej-814391:15 TSH (37137) Comments: PATIENT WAS FASTINGPERFORMED BY: [facility] Zzkcib5151 [facility]ID[facility]parkin [place] [id number] TSH 4.170 {uIU/mL} (Normal) Range: 0.450-4.500 86-Coc-815438:15 URINALYSIS, W/ MICRO (70324) Comments: PATIENT WAS FASTINGPERFORMED BY: [facility] Yzqxtx0088 [facility] [place] [id number] Microscopic Examination See below: (Normal) Comments: Microscopic was indicated and was performed. Microscopic Examination MICRON (Normal) Comments: Microscopic follows if indicated. Nitrite, Urine Negative (Normal) Urobilinogen,Semi-Qn 0.2 mg/dL (Normal) Range: 0.2-1.0 Bilirubin Negative (Normal) Occult Blood Negative (Normal) Ketones Negative (Normal) Glucose Negative (Normal) Protein Negative (Normal) WBC Esterase Negative (Normal) Appearance Clear (Normal) Urine-Color Yellow (Normal) pH 7.0 (Normal) Range: 5.0-7.5 Specific Mounds 1.020 (Normal) Range: 1.005-1.030 80-Nte-591976:15 MICROALBUMIN: CREATININE RATIO Comments: PATIENT WAS FASTINGPERFORMED BY: [facility]70 [facility] [id number] (37738) AND (97032) Alb/Creat Ratio 17.8 {mg/g_creat} (Normal) Range: 0.0-30.0 Albumin, Urine 25.9 ug/mL (Normal) Creatinine, Urine 145.6 mg/dL (Normal) 87-Osg-388579:15 METABOLIC PANEL, COMPREHENSIVE Comments: PATIENT WAS FASTINGPERFORMED BY: [facility]6370 [facility] [id number] (92560) ALT (SGPT) 15 [iU]/L (Normal) Range: 0-32 [...] 8-27 Glucose 83 mg/dL (Normal) Range: 65-99 56-Vwq-714594:15 LIPID PANEL (38959) Comments: PATIENT WAS FASTINGPERFORMED BY: [facility]lyW[facility] Care CenterTzhpxc3265 [facility] [id number] LDL/HDL Ratio 1.3 {ratio} (Normal) Range: 0.0-3.2 Comments: LDL/HDL Ratio Men Women 1/2 Avg.Risk 1.0 1.5 Av g.Risk 3.6 3.2 2X Avg.Risk 6.2 5.0 3X Avg.Risk 8.0 6.1 LDL Cholesterol Calc 94 mg/dL (Normal) Range: 0-99 VLDL Cholesterol Gabriel 17 mg/dL (Normal) Range: 5-40 HDL Cholesterol 72 mg/dL (Normal) Triglycerides 86 mg/dL (Normal) Range: 0-149 Cholesterol, Total 183 mg/dL (Normal) Range: 100-199 85-Zad-477539:15 CBC W/AUTO DIFF WBC (95099) Comments: PATIENT WAS FASTINGPERFORMED BY: [facility] HospitalEalpmr8109 [facility] [id number] Immature Grans (Abs) 0.0 {x10E3/uL} (Normal) Range: [...] 3.77-5.28 WBC 6.8 {x10E3/uL} (Normal) Range: 3.4-10.8 26-Uos-19389:35 URINE MADAY CULTURE-IDENTIFICATN Comments: PATIENT NOT FASTINGPERFORMED BY: [facility] Fyrgbg2708 [facility] [id number] Information: SRC:JUDI (36987) Antimicrobial MIHEAD (Normal) Comments: S = Susceptible; [...] . (Abnormal) Urine Final report Culture,Comprehensive (Abnormal) 67-Wxz-530881:51 Urinalysis, Office (23304) UA - LEUKOCYTE ESTERASE Moderate (Normal) UA [...] Microscopic Examination Comments: PATIENT WAS FASTINGPERFORMED BY: [place] 4812870 [facility] [id number] Bacteria None seen (Normal) Mucus Threads Present (Normal) Cast Type Hyaline casts (Normal) Casts Present {/lpf} (Abnormal) Epithelial Cells (non renal) 0-10 {/hpf} (Normal) Range: 0 - 10 RBC None seen {/hpf} (Normal) Range: 0 - 2 WBC 0-5 {/hpf} (Normal) Range: 0 - 5 :38 TSH (86169) Comments: PATIENT WAS FASTINGPERFORMED BY: [address] [id number] TSH 2.710 {uIU/mL} (Normal) Range: 0.450-4.500 :38 T4, FREE (THYROXINE) (80349) Comments: PATIENT WAS FASTINGPERFORMED BY: [address] [id number] T4,Free(Direct) 1.21 ng/dL (Normal) Range: 0.82-1.77 :38 T3, FREE (TRIDOTHYRONINE) (30086) Comments: PATIENT WAS FASTINGPERFORMED BY: [address] [id number] Triiodothyronine,Free,Serum 2.8 pg/mL (Normal) Range: 2.0-4.4 :38 URINALYSIS, W/ MICRO (15861) Comments: PATIENT WAS FASTINGPERFORMED BY: [address] [id number] Microscopic Examination See below: (Normal) Comments: Microscopic was indicated and was performed. Microscopic Examination MICRON (Normal) Comments: Microscopic follows if indicated. Nitrite, Urine Negative (Normal) Urobilinogen,Semi-Qn 0.2 mg/dL (Normal) Range: 0.2-1.0 Bilirubin Negative (Normal) Occult Blood Negative (Normal) Ketones Negative (Normal) Glucose Negative (Normal) Protein Negative (Normal) WBC Esterase Negative (Normal) Appearance Clear (Normal) Urine-Color Yellow (Normal) pH 7.0 (Normal) Range: 5.0-7.5 Specific Mounds 1.017 (Normal) Range: 1.005-1.030 :38 MICROALBUMIN: CREATININE RATIO Comments: PATIENT WAS FASTINGPERFORMED BY: [facility]70 [facility] [id number] (97474) AND (39154) Microalb/Creat Ratio 5.3 {mg/g_creat} (Normal) Range: 0.0-30.0 Microalbumin, Urine 4.6 ug/mL (Normal) Creatinine, Urine 87.1 mg/dL (Normal) :38 METABOLIC PANEL, COMPREHENSIVE Comments: PATIENT WAS FASTINGPERFORMED BY: [facility]70 [facility] [id number] (76753) ALT (SGPT) 14 [iU]/L (Normal) Range: 0-32 [...] Range: 65-99 :38 CBC W/AUTO DIFF WBC (23697) Comments: PATIENT WAS FASTINGPERFORMED BY: [facility]6370 [facility] [id number] Immature Grans (Abs) 0.0 {x10E3/uL} (Normal) Range: [...] {x10E3/uL} (Normal) Range: 3.4-10.8 :38 LIPID PANEL (93517) Comments: PATIENT WAS FASTINGPERFORMED BY: [facility] Care CenterHpxzqr5990 [facility] [id number] LDL/HDL Ratio 1.4 {ratio_units} (Normal) Range: 0.0-3.2 [...] 187 mg/dL (Normal) Range: 100-199 :38 CALCIFIDIOL (73054) VIT D 25 Comments: PATIENT WAS FASTINGPERFORMED BY: [facility] Kiiras6938 [facility] [id number] Vitamin D, 25-Hydroxy 49.1 ng/mL (Normal) Range: 30.0-100.0 Comments: Vitamin D deficiency has been defined by the [place] ofMedicine and an Endocrine Society practice guideline as alevel of serum 25-OH vitamin D less than 20 ng/mL (1,2).The Endocrine Society went on to further define vitamin Dinsufficiency as a level between 21 and 29 ng/mL (2).1. IOM ([place] of Medicine). 2010. Dietary reference intakes for calcium and D. [place]ete [place]: The National Academies Press.2. Dung MF, Ken NC, Diego ELMORE, et al. Evaluation, treatment, and prevention of vitamin D deficiency: an Endocrine Society clinical practice guideline. JCEM. 2010; 96(7):1911-30. :11 URINE MADAY CULTURE-IDENTIFICATN Comments: PATIENT NOT FASTINGPERFORMED BY: [facility]6370 [facility] [id number] Information: SRC:UC (48517) Result 1 MUG (Normal) Comments: Mixed urogenital flora25,000-50,000 colony forming units per mL Urine Final report (Normal) Culture,Comprehensive :26 Urinalysis, Office (54327) UA - LEUKOCYTE ESTERASE Small (Normal) UA - NITRITE Negative (Normal) URINE UROBILINGN FARIBA TIMED Normal mg/dL (Normal) UA - PROTEIN Negative mg/dL (Normal) UA - PH 7 (Normal) UA - BLOOD Negative (Normal) UA - SPECIFIC GRAVITY 1.025 (Normal) UA - KETONES Negative mg/dL (Normal) UA - BILIRUBIN Negative (Normal) UA - GLUCOSE Negative (Normal) :24 Fecal Occult Blood , Office (17726) Fecal Occult Blood , Office (Inhouse) negative (Normal) :54 Fecal Occult Blood , Office (07178) Fecal Occult Blood , Office (Inhouse) positive (Normal) :24 Angiotensin Convert Enzyme Comments: [facility] (refer to report for specific site)refer to report for address and phone number [phone] U/L (Normal) Range: 14-82 Comments: Performed at: [address] [id number] Director: John Paul Burrows PhD, Phone: [phone] 84-Yaq-951830:24 Erythrocyte Sed Rate Comments: [facility] Claokscihg7958 [place], [place], [id number] SED RATE 9 mm/h (Normal) Range: 0-30 99-Gkh-29780:06 Microscopic Examination Comments: PATIENT WAS FASTINGPERFORMED BY: [address] [id number] Bacteria Moderate (Abnormal) Mucus Threads Present (Normal) Epithelial Cells (non renal) 0-10 {/hpf} (Normal) Range: 0 - 10 RBC 0-2 {/hpf} (Normal) Range: 0 - 2 WBC 11-30 {/hpf} (Abnormal) Range: 0 - 5 :06 CALCIFEDIOL (43695) Comments: PATIENT WAS FASTINGPERFORMED BY: [facility] [place] [address] [id number] Vitamin D, 25-Hydroxy 48.3 ng/mL (Normal) Range: 30.0-100.0 Comments: Vitamin D deficiency has been defined by the [place] ofMedicine and an Endocrine Society practice guideline as alevel of serum 25-OH vitamin D less than 20 ng/mL (1,2).The Endocrine Society went on to further define vitamin Dinsufficiency as a level between 21 and 29 ng/mL (2).1. IOM ([place] of Medicine). 2010. Dietary reference intakes for calcium and D. [place]ete [place]: The National Academies Press.2. Dung MF, Ken MCFARLAND, Diego ELMORE, et al. Evaluation, treatment, and prevention of vitamin D deficiency: an Endocrine Society clinical practice guideline. JCEM. 2010; 96(7):1911-30. :06 TSH (THYROID STIMULATING Comments: PATIENT WAS FASTINGPERFORMED BY: [place] [id number] HORMONE) (49896) TSH 3.690 {uIU/mL} (Normal) Range: 0.450-4.500 :06 URINALYSIS (62916) Comments: PATIENT WAS FASTINGPERFORMED BY: [facility] [id number] Microscopic Examination See below: (Normal) Comments: Microscopic was indicated and was performed. Nitrite, Urine Negative (Normal) Urobilinogen,Semi-Qn 0.2 mg/dL (Normal) Range: 0.2-1.0 Bilirubin Negative (Normal) Occult Blood Negative (Normal) Ketones Negative (Normal) Glucose Negative (Normal) Protein Negative (Normal) WBC Esterase 3+ (Abnormal) Appearance Clear (Normal) Urine-Color Yellow (Normal) pH 7.5 (Normal) Range: 5.0-7.5 Specific Mounds 1.017 (Normal) Range: 1.005-1.030 :06 Lipid Panel (17750) Comments: PATIENT WAS FASTINGPERFORMED BY: [facility]TaxAt[facility] [id number] LDL/HDL Ratio 1.5 {ratio_units} (Normal) Range: 0.0-3.2 [...] Cholesterol, Total 190 mg/dL (Normal) Range: 100-199 50-Adw-31322:06 Metabolic Panel, Comprehensive Comments: PATIENT WAS FASTINGPERFORMED BY: [facility]CoSt[facility] HospitalOzqzun4960 [facility] [id number] (32206) ALT (SGPT) 13 [iU]/L (Normal) Range: 0-32 [...] MANUAL DIFF Comments: PATIENT WAS FASTINGPERFORMED BY: [facility]CoSt. [facility] Warren HospitalTzucxd8716 [facility] [id number] Information: [id number] (56813) Immature Grans (Abs) 0.0 {x10E3/uL} (Normal) Range: [...] 3.77-5.28 WBC 6.4 {x10E3/uL} (Normal) Range: 3.4-10.8 19-Jlh-26497:06 MICROALBUMIN: CREATININE RATIO Comments: PATIENT WAS FASTINGPERFORMED BY: [facility]CoSt. [facility] HospitalVavpuk1706 [facility] [id number] (77329) AND (86993) Microalb/Creat Ratio 4.3 {mg/g_creat} (Normal) Range: 0.0-30.0 Microalbumin, Urine 3.4 ug/mL (Normal) Creatinine, Urine 78.2 mg/dL (Normal) 8-Lmm-238763:22 ANGTENSIN 1-CONVRT ENZYM Comments: PATIENT NOT FASTINGPERFORMED BY: [facility] Lrjsdy8556 [facility] [id number] Information: [id number] (45605) ART 61 U/L (Normal) Range: 14-82 9-Kbj-963300:22 SED RATE ERYTHROCYTE (38811) Comments: PATIENT NOT FASTINGPERFORMED BY: [facility] Vsjbwa3518 [facility] [id number] Sedimentation Rate-Westergren 7 mm/h (Normal) Range: 0-40 9-Iat-327662:22 C-REACTIVE PROTEIN (00819) Comments: PATIENT NOT FASTINGPERFORMED BY: [facility] Dulkdq8399 [facility] [id number]; non- emergent till apt C-Reactive Protein, Quant 2.2 mg/L (Normal) Range: 0.0-4.9 78-Bkt-373922:13 Rapid Flu (18050 x 2) Influenza A Ag negative a/b (Normal) 0-Phu-100545:37 URINE MADAY CULTURE (FARIBA Comments: PATIENT NOT FASTINGPERFORMED BY: [facility] Dfarsv1499 [facility] [id number] Information: SRC:UR [id number] COL COUNT) (09851) Result 1 MUG (Normal) Comments: Mixed urogenital flora2,000 Colonies/mL Urine Culture,Comprehensive Final report (Normal) 2-Jmm-175624:15 Urinalysis, Office (30414) UA - LEUKOCYTE ESTERASE Negative (Normal) UA - NITRITE Negative (Normal) URINE UROBILINGN FARIBA TIMED Normal mg/dL (Normal) UA - PROTEIN Negative mg/dL (Normal) UA - PH 6 (Abnormal) UA - BLOOD Negative (Normal) UA - SPECIFIC GRAVITY 1.020 (Normal) UA - KETONES Negative mg/dL (Normal) UA - BILIRUBIN Negative (Normal) UA - GLUCOSE Negative (Normal) 06-Ioq-58425:42 Comprehensive Metabolic Profil Comments: [facility] Bghlniauae15[address] [place], [place], [id number] GAP 4 (Abnormal) Range: 5-15 CO2 30.0 [...] 7-18 GLU 93 mg/dL (Normal) Range: 70-110 74-Piz-84976:42 Lipid Profile Comments: [facility] Vhtsgtvblk4640 [address] [place], [place], [id number] ; non-emergent till apt VLDL 35 mg/dL [...] 200-240 mg/dL Borderline >240 mg/dL High Risk 93-Byr-89984:42 Vitamin D,25 Hydroxy Comments: [facility] Zcqxjmareg3134 [place], [address] Vitamin D 25-OH 31.7 ng/mL (Normal) Comments: Vitamin D 25(OH) Status Range Deficiency <20 ng/mL (50nmol/L) Insuffciency 20 - 30 ng/mL (50 - 75 nmol/L) Sufficiency 30 - 100 ng/mL (75 - 250 nmol/L) Toxicity >100 ng/mL (>250 nmol/L) 98-Goa-099220:26 Pap IG (Image Comments: Source.............Cervical;EndocervicalNo. of containers..01 CYTYC Thin Prep VialPATIENT NOT FASTINGPERFORMED BY: =G [facility] [address] [id number] BY: WB L Guided) [facility] Invuuqaesi583 [facility] [id number] Note: PAPSMR (Normal) Comments: The Pap smear [...] for malignant neoplasm of the cervixRenetta Medina Anger Control Counselor (ASCP) 97-Jvw-741021:26 Thin Prep Pap Comments: Source.............Cervical;EndocervicalNo. of containers..01 CYTYC Thin Prep VialPATIENT NOT FASTINGPERFORMED BY: =G [facility] Bedolimhrn339 [facility] [id number] BY: VICKI Beal (06120) Paul Munozton120 [facility] [id number] Information: [id number] Age Gdln ACOG Testing AGE4 (Normal) Comments: <21 or >65 or no age provided 26-Miq-20524:08 Rapid Strep Test, Office (58479) Comments: neg Rapid Strep Test, Office Negative (Normal) 80-Uxq-11619:26 Microscopic Examination Comments: PATIENT WAS FASTINGPERFORMED BY: JAMES [employer] [facility] [id number] Bacteria None seen (Normal) Mucus Threads Present (Normal) Epithelial Cells (non renal) 0-10 {/hpf} (Normal) Range: 0 - 10 RBC 0-2 {/hpf} (Normal) Range: 0 - 2 WBC 0-5 {/hpf} (Normal) Range: 0 - 5 28-Nxk-589541:02 URINE MADAY CULTURE-FARIBA COL Comments: PERFORMED BY: JAMES [facility]aiAt[facility] [id number] COUNT (36131) Result 1 MUG (Normal) Comments: Mixed urogenital flora10,000-25,000 colony forming units per mL Urine Final report (Normal) Culture,Comprehensive 83-Flj-840409:00 Urinalysis, Office (18414) UA - LEUKOCYTE ESTERASE Negative (Normal) UA - NITRITE Negative (Normal) URINE UROBILINGN FARIBA TIMED Normal mg/dL (Normal) UA - PROTEIN Negative mg/dL (Normal) UA - PH 7.0 (Normal) UA - BLOOD non-hemolyzed trace (Normal) UA - SPECIFIC GRAVITY 1.010 (Normal) UA - KETONES Negative mg/dL (Normal) UA - BILIRUBIN Negative (Normal) UA - GLUCOSE Negative (Normal) 86-Cmn-28069:26 METABOLIC PANEL, Comments: PATIENT WAS FASTINGPERFORMED BY: [employer] [facility] [employer] [facility] MovementN[facility] [id number] Information: [id number] [facility] (16898) ALT (SGPT) 27 [iU]/L (Normal) Range: 0-32 [...] Glucose, Serum 88 mg/dL (Normal) Range: 65-99 62-Uit-87664:26 URINALYSIS, W/ MICRO (72779) Comments: PATIENT WAS FASTINGPERFORMED BY: LabCoSt. Luke[facility] Warren HospitalFzjrah5794 [facility] [id number] Microscopic Examination See below: (Normal) Comments: Microscopic was indicated and was performed. Microscopic Examination MICRON (Normal) Comments: Microscopic follows if indicated. Nitrite, Urine Negative (Normal) Urobilinogen,Semi-Qn 0.2 mg/dL (Normal) Range: 0.0-1.9 Bilirubin Negative (Normal) Occult Blood Negative (Normal) Ketones Negative (Normal) Glucose Negative (Normal) Protein Negative (Normal) WBC Esterase Negative (Normal) Appearance Clear (Normal) Urine-Color Yellow (Normal) pH 7.0 (Normal) Range: 5.0-7.5 Specific [place]ounds 1.023 (Normal) Range: 1.005-1.030 :26 TSH (54632) Comments: PATIENT WAS FASTINGPERFORMED BY: [facility] Uhcssx6810 [facility] [place] [id number] TSH 3.170 {uIU/mL} (Normal) Range: 0.450-4.500 :26 Vitamin D Hydroxy (68343) Comments: PATIENT WAS FASTINGPERFORMED BY: [facility] Lauupm0532 [facility] [id number] Vitamin D, 25-Hydroxy 34.3 ng/mL (Normal) Range: 30.0-100.0 Comments: Vitamin D deficiency has been defined by the [place] of[place] and an Endocrine Society practice guideline as alevel of serum 25-OH vitamin D less than 20 ng/mL (1,2).The Endocrine Society went on to further define vitamin Dinsufficiency as a level between 21 and 29 ng/mL (2).1. IOM ([place] of Medicine). 2010. Dietary reference intakes for calcium and D. [place]: The National Academies Press.2. Dung MF, Ken NC, Diego ELMORE, et al. Evaluation, treatment, and prevention of vitamin D deficiency: an Endocrine Society clinical practice guideline. JCEM. 2010; 96(7):1911-30. :26 LIPID PANEL (17222) Comments: PATIENT WAS FASTINGPERFORMED BY: [facility] Myrnro1976 [facility] [id number]; will review at 04/11 appt LDL/HDL Ratio [...] (Abnormal) Range: 100-199 :31 Vitamin D Hydroxy (39171) Comments: PATIENT WAS FASTINGPERFORMED BY: [facility] Cgxvzk3741 [facility] [id number] Vitamin D, 25-Hydroxy 35.2 ng/mL (Normal) Range: 30.0-100.0 Comments: Vitamin D deficiency has been defined by the [place] of[place] and an Endocrine Society practice guideline as alevel of serum 25-OH vitamin D less than 20 ng/mL (1,2).The Endocrine Society went on to further define vitamin Dinsufficiency as a level between 21 and 29 ng/mL (2).1. IOM ([place] of [employer]). 2010. Dietary reference intakes for calcium and D. [place]: The National Academies Press.2. Dung MF, Ken NC, Diego ELMORE, et al. Evaluation, treatment, and prevention of vitamin D deficiency: an Endocrine Society clinical practice guideline. JCEM. 2010; 96(7):1911-30. :31 TSH (59893) Comments: PATIENT WAS FASTINGPERFORMED BY: [facility] Eztsww6314 [facility] [id number] TSH 3.100 {uIU/mL} (Normal) Range: 0.450-4.500 :31 MICROALBUMIN: CREATININE RATIO Comments: PATIENT WAS FASTINGPERFORMED BY: [facility] Lnxkdv0213 [facility] [id number] (04299) AND (82866) Microalb/Creat Ratio 2.0 {mg/g_creat} (Normal) Range: 0.0-30.0 Microalbumin, Urine 3.8 ug/mL (Normal) Range: 0.0-17.0 Creatinine, Urine 189.7 mg/dL (Normal) Range: 15.0-278.0 :31 CBC WITH MANUAL DIFF Comments: PATIENT WAS FASTINGPERFORMED BY: [facility]CoSt. [facility]'s [facility] HospitalUeyljq6452 [facility] [id number] Information: [id number] (86716) Immature Grans (Abs) 0.0 {x10E3/uL} (Normal) Range: [...] 3.77-5.28 WBC 6.9 {x10E3/uL} (Normal) Range: 3.4-10.8 65-Jpg-08212:31 METABOLIC PANEL, COMPREHENSIVE Comments: PATIENT WAS FASTINGPERFORMED BY: LabCoSt. Luke's Warren HospitalFxajog5153 [facility] [id number] (08400) ALT (SGPT) 11 [iU]/L (Normal) Range: 0-32 [...] mg/dL (Normal) Range: 65-99 :31 LIPID PANEL (09687) Comments: PATIENT WAS FASTINGPERFORMED BY: [facility] Wfmaxb3387 [facility] [id number] LDL/HDL Ratio 1.4 {ratio_units} (Normal) Range: 0.0-3.2 LDL Cholesterol Calc 89 mg/dL (Normal) Range: 0-99 VLDL Cholesterol Gabriel 30 mg/dL (Normal) Range: 5-40 HDL Cholesterol 62 mg/dL (Normal) Comments: According to ATP-III Guidelines, HDL-C >59 mg/dL is considered anegative risk factor for CHD. Triglycerides 149 mg/dL (Normal) Range: 0-149 Cholesterol, Total 181 mg/dL (Normal) Range: 100-199 43-Gry-498029:14 URINE MADAY CULTURE (FARIBA Comments: PATIENT NOT FASTINGPERFORMED BY: [facility] Yoskfg7017 [facility] [id number] Information: SRC:UR [id number] COL COUNT) (37876) Result 1 MUG (Normal) Comments: Mixed urogenital rjdau862 Colonies/mL Urine Culture,Comprehensive Final report (Normal) 26-Ymz-104855:18 URINE MADAY CULTURE-IDENTIFICATN Comments: PATIENT NOT FASTINGPERFORMED BY: [facility] Tckjuh5336 [facility] [id number] Information: [id number] (93968) Antimicrobial MIHEAD (Normal) Comments: S = Susceptible; [...] mL (Abnormal) Urine Final report Culture,Comprehensive (Abnormal) 48-Jtr-216179:09 Urinalysis, Office (24090) UA - LEUKOCYTE ESTERASE Moderate (Normal) UA - NITRITE Negative (Normal) URINE UROBILINGN FARIBA TIMED Normal mg/dL (Normal) UA - PROTEIN Negative mg/dL (Normal) UA - PH 5.0 (Normal) UA - BLOOD Hemolyzed Large (Normal) UA - SPECIFIC GRAVITY 1.020 (Normal) UA - KETONES Negative mg/dL (Normal) UA - BILIRUBIN Negative (Normal) UA - GLUCOSE Negative (Normal) 62-Vfh-435626:37 URINE MADAY CULTURE-IDENTIFICATN Comments: PATIENT NOT FASTINGPERFORMED BY: [facility] Bspapk7041 [facility] [id number] Information: SRC: URINE [id number] (84882) Antimicrobial MIHEAD (Normal) Comments: S = Susceptible; [...] mL (Normal) Urine Final report Culture,Comprehensive (Normal) 19-Pnf-905923:10 Urinalysis, Office (14605) UA - BILIRUBIN Negative (Normal) UA - BLOOD Hemolyzed Moderate (Normal) UA - GLUCOSE Negative (Normal) UA - KETONES Negative mg/dL (Normal) UA - LEUKOCYTE ESTERASE Large (Normal) UA - NITRITE Negative (Normal) UA - PH 6.0 (Normal) UA - PROTEIN Negative mg/dL (Normal) UA - SPECIFIC GRAVITY 1.025 (Normal) URINE UROBILINGN FARIBA TIMED Normal mg/dL (Normal) 31-Xii-181719:14 HPV automatic Comments: Source.............Cervical;EndocervicalNo. of containers..01 CYTYC Thin Prep VialPATIENT NOT FASTINGPERFORMED BY: WB [facility] [address] [id number] BY: =G L (66891) [facility] [address] [id number] Information: [id number] HPV, high-risk Negative Comments: This high-risk HPV [...] are present.V72.31 ; Routine gynecological examinationMichael Carmona Anger Control Counselor (ASCP) 92-Yjt-373888:45 FECAL OCCULT HGB ASSAY- tubes sent home (46366) FECAL OCCULT HGB ASSAY, QUAL, 1-3 SIMULTANEOU negative (Normal) 65-Mbm-791860:37 CBC WITH MANUAL DIFF Comments: PATIENT WAS FASTINGPERFORMED BY: [facility]6370 [facility] [id number] Information: [id number] (92016) Immature Grans (Abs) 0.0 {x10E3/uL} (Normal) Range: [...] PANEL, COMPREHENSIVE Comments: PATIENT WAS FASTINGPERFORMED BY: LabCoSt. Luke's Warren HospitalPmqvvh3244 [facility] [id number] (19616) ALT (SGPT) 21 [iU]/L (Normal) Range: 0-32 [...] Glucose, Serum 92 mg/dL (Normal) Range: 65-99 15-Bue-765917:37 Vitamin D Hydroxy (22042) Comments: PATIENT WAS FASTINGPERFORMED BY: [facility]6370 [facility] [id number] Vitamin D, 25-Hydroxy 35.3 ng/mL (Normal) Range: 30.0-100.0 Comments: Vitamin D deficiency has been defined by the [place] of[place]icine and an Endocrine Society practice guideline as alevel of serum 25-OH vitamin D less than 20 ng/mL (1,2).The Endocrine Society went on to further define vitamin Dinsufficiency as a level between 21 and 29 ng/mL (2).1. IOM ([place] of [place]). 2010. Dietary reference intakes for calcium and D. [place]: The National Academies Press.2. Dung MF, Ken MCFARLAND, Diego ELMORE, et al. Evaluation, treatment, and prevention of vitamin D deficiency: an Endocrine Society clinical practice guideline. JCEM. 2010; 96(7):1911-30. 15-Ktt-110406:37 TSH (16006) Comments: PATIENT WAS FASTINGPERFORMED BY: [facility] Rvngbt3398 [facility] [id number] TSH 2.590 {uIU/mL} (Normal) Range: 0.450-4.500 29-Qvw-116306:37 LIPID PANEL (83597) Comments: PATIENT WAS FASTINGPERFORMED BY: LabCoSt. [facility] HospitalXkaysg0766 [facility] [id number] LDL/HDL Ratio 2.0 {ratio_units} (Normal) Range: 0.0-3.2 LDL Cholesterol Calc 141 mg/dL (Abnormal) Range: 0-99 VLDL Cholesterol Gabriel 25 mg/dL (Normal) Range: 5-40 HDL Cholesterol 72 mg/dL (Normal) Comments: According to ATP-III Guidelines, HDL-C >59 mg/dL is considered anegative risk factor for CHD. Triglycerides 125 mg/dL (Normal) Range: 0-149 Cholesterol, Total 238 mg/dL (Abnormal) Range: 100-199 01-Cah-95480:01 BILAT SCRN DIGITAL & CAD Radiology Report [...] Durant M.D.April 21, 2013 at 3:29:39 PM [id number] Signed RU/RU If you are the referring physician and would like to consult with theradiologist who provided this interpretation, please contact Tricia Camarena at . If this radiologist is unavailable, youwillbe directed to another radiologist to assist. If you are a patient with a question regarding this report, pleasecontactyour referring physician direct ly. Professional Interpretation Provided By: [employer], Phone , These documents contain legally protected [...] CHOL 194 mg/dL (Normal) Comments: <200 mg/dL Nngjevyft090-328 mg/dL Borderline>240 mg/dL High Risk :18 TSH 2.02 {uIU/mL} (Normal) Range: 0.358-3.74 :18 VITD 56.0 ng/mL (Normal) Comments: Vitamin D 25(OH) Status RangeDeficiency <20 ng/mL (50nmol/L)Insufficiency 20 - 30 ng/mL (50 - 75 nmol/L)Sufficiency 30 - 100 ng/mL (75 - 250 nm ol/L)Toxicity >100 ng/mL (250 nmol/L)Effective 201209-Sep-201204-Zjt-942044:39 Aerobic Bacterial Culture Comments: PERFORMED BY: JAMES [facility] Azfcqk5491 [facility] AngAt[facility] Health [place]parkpa[place] [id number] Information: SRC:CH RIGHT CHEST Result 1 NG36 [...] D deficiency has been defined by the [place] of[place] and an Endocrine Society practice guideline as alevel of serum 25-OH vitamin D less than 20 ng/mL (1,2).The Endocrine Society went on to further define vitamin Dinsufficiency as a level between 21 and 29 ng/mL (2).1. IOM ([place] of [place]). 2010. Dietary reference intakes for calcium and D. [place]: The National Academies Press.2. Dung MF, Ken NC, Diego ELMORE, et al. Evaluation, treatment, and prevention of vitamin D deficiency: an Endocrine Society clinical practice guideline. JCEM. 2010; 96(7): 1911-30.Performed at: [address] [id number] Director: Amari Barnett PhD, Phone: [phone] 7-Jml-912306:36 BILAT SCRN DIGITAL & CAD Radiology Report [...] Khan M.D.April 05, 2012 at 3:13:08 PM [id number] Signed GP/GP If you are the referring physician and would like to consult with theradiologist who provided this interpretation, please contact Tricia Butler at [phone]. If this radiologist is unavailable, youwill be directed to another radiologist to assist. If you are a patient with a questi on regarding this report, pleasecontactyour referring physician directly. Professional Interpretation Provided By: [employer], Phone , These documents contain legally prot [...] 04/05/12 1519 Sign by: Cruzito Khan MD 49-Nky-585142:06 HEPATOBILLIARY IMG W/PHARM INT Radiology Report See [...] Cholecystokinin (0.02 ug/kg) was administered intravenously over a21-tafhtm period. T he post CCK gallbladder ejection fraction aeoggujhyvep16 minutes following Cholecystokinin administration was noted to [...] Bustos M.D.March 31, 2012 at 9:50:05 AM [id number] Signed RB/RB If you are the referring physician and would like to consult with theradiologist who provided this interpretati on, please contact Tricia Hood at [phone]. If this radiologist is unavailable, you will bedirected to another radiologist to assist. If you are a patient with a question regarding this report , pleasecontactyour referring physician directly. Professional Interpretation Provided By: [employer], Phone , These documents contain legally protected [...] 03/31/12 1158 Sign by: Frank Bustos DO 04-Ura-30674:09 GALLBLADDER Comments: f/u 03/19/12 Radiology Report See [...] size of the right kidney. The right tuljwsrxcxrone43.4 cm. Normal renal cortex. The right cortex measures 1.5 cm. Thereisa 7 mm x 6 mm x 5 mm cyst in t he upper pole. There is no righthydronephrosis. IMPRESSION:Mild dilatation of the common bile duct. Signed:Cruzito Khan M.D.March 18, 2012 at 10:37:07 AM [id number] Signed GP/G P If you are the referring physician and would like to consult with theradiologist who provided this interpretation, please contact Tricia Butler at [phone]. If this radiologist is unavai lable, youwill be directed to another radiologist to assist. If you are a patient with a question regarding this report, pleasecontactyour referring physician directly. Professional Interpretation Provi ded By: [employer], Phone , Dictated on 03/18/12 0815 by Chester RAO,Kaushalranscribed on 03/18/12 1043 by ITS IMPORTSign by Chester RAO,Cruzito on 03/18/12 1043 Sign by: Cruzito Khan MD 16-Mar-2012 TUYET 58 U/L (Normal) Comments: DR VIERA ORDERED TSH, CMP, LIPID, CBCMD, UAC 10:19 Range: 25-115 20-Dwv-513507:19 CBCMD Comments: DR VIERA ORDERED TSH, CMP, [...] 4.2-5.4 WBC 7.1 K/mm3 (Normal) Range: 4.4-11.0 84-Lqs-210305:19 CMP Comments: DR VIERA ORDERED TSH, CMP, [...] 7-18 GLU 98 mg/dL (Normal) Range: 70-110 92-Lnp-311368:19 LIPASE 259 U/L (Normal) Comments: DR VIERA ORDERED TSH, CMP, LIPID, CBCMD, UAC Range: 70-290 79-Pzz-552530:19 LIPID Comments: DR VIERA ORDERED TSH, CMP, [...] TSH, CMP, LIPID, CBCMD, UAC Range: 0.358-3.74 12-Efy-418362:19 UAC Comments: DR VIERA ORDERED TSH, CMP, [...] (Normal) UCLAR CLEAR (Normal) UCOL YELLOW (Normal) 25-Pxk-526268:39 Urinalysis, Office (88431) UA - BILIRUBIN Negative (Normal) UA - BLOOD Negative (Normal) UA - GLUCOSE Negative (Normal) UA - KETONES Negative mg/dL (Normal) UA - LEUKOCYTE ESTERASE Trace (Normal) UA - NITRITE Negative (Normal) UA - PH 6.0 (Normal) UA - PROTEIN Negative mg/dL (Normal) UA - SPECIFIC GRAVITY 1.015 (Normal) URINE UROBILINGN FARIBA Normal mg/dL (Normal) TIMED 20-Uuw-608331:02 CUT See Note (Normal) Comments: Normal throat bhavesh isolated. No beta-hemolyticstreptococcus isolated. 06-Orb-167372:37 Rapid Strep Test, Office (67398) Rapid Strep Test, Office Negative (Normal) :58 [...] Sign by : Shannon RAO,Marilia 27-May-2011 ART 08359 81 U/L (Abnormal) Range: 12-68 12:07 48-Qnb-082751:07 XOCHILT DIR SEMI-QL Comments: appt 06/03/11 XOCHILT DIRECT 33 AU/mL (Normal) 66-Tdz-122724:07 ASO 6031 94.6 {IU/mL} (Normal) Range: 0.0-200.0 Comments: Performed at: [address] [place], [place] [id number] Director: Leana Villar MD, Phone: [phone] :[phone] C-REACTIVE PROT 16.20 mg/L (Abnormal) Range: [...] SED RATE 36 mm/h (Abnormal) Range: 0-30 43-Qvm-529991:07 RHEUMATOID FAC < 10.0 {IU/mL} (Normal) 88-Fyc-071270:07 TSH 2.21 {uIU/mL} (Normal) Range: 0.358-3.74 61-Lyo-894853:20 CHEST, PA AND LATERAL Radiology Report See [...] throat bhavesh isolated. No beta-hemolyticstreptococcus isolated. 8:38 62-Szo-727205:34 PPD (36817) SKIN TEST INTRADERMAL TB negative (Normal) 69-Wid-241753:23 LQDPAP [id number] PAPSMR Comment (Normal) Comments: The Pap smear [...] no HPV testing was performed. .Performed at: [address] [id number] Director: Young Pope MD, Phone: [phone] COMM . (Normal) DIAGN Comment (Normal) Comments: NEGATIVE FOR INTRAEPITHELIAL LESION AND MALIGNANCY.CELLULAR CHANGES ASSOCIATED WITH ATROPHY ARE PRESENT.THIS SPECIMEN WAS RESCREENED PART OF OUR DIRECTOR OF ACADEMIC PROGRAM.Satisfactory for evaluation. Endocervical component may not bedistinguished in cases of atrophy.Shayla Wright, Anger Control Counselor (ASCP)Zahraa Orr, Supervisory Anger Control Counselor (ASCP)This liquid based ThinPrep(R) pap test was screened withthe use of an image guided system. 59-Pmy-667435:41 BILAT SCRN DIGITAL & CAD Radiology Report [...] 02/26/11 1333 Sign by: Cruzito Khan MD 40-Pyq-451521:37 DEXA BONE DENSITY STUDY (HP) Radiology Report [...] (-0.1) / Z-score (0.5) On the lateral compressor operator adjuster film, there is a grade 2 anterior [...] 02/26/11 1339 Sign by: Cruzito Khan MD 39-Aff-31498:19 CBCD,SMEAR DIFF PLT EST SeeNote (Normal) Comments: [...] CHOL 206 mg/dL (Abnormal) Comments: <200 mg/dL Wrjefogyo756-097 mg/dL Borderline>240 mg/dL High Risk :26 TSH 1.24 {uIU/mL} (Normal) Range: 0.358-3.74 38-Dxj-369208:19 BILAT SCRN DIGITAL & CAD Radiology Report See Note (Normal) Comments: Exam Number: [id number] DIGITAL BILATERAL MAMMOGRAM Digital oblique and craniocaudal [...] mammograms werealso examined with computer-aided detection software ([employer], [employer] Reported By: CRUZITO KHAN :53 CBCD,SMEAR [...] CELLS NO ORGANISMS SEEN :11 LQD PAP [id number] Comments: CYTOLOGY INFORMATION:- CLINICAL INFORMATION: POSTMENOPAUSAL- DATE LMP/MENOPAUSE: NOT GIVEN MENOPAUSE- COLLECTION VIAL: Thin Prep Vial- MANAGER TRACK SOURCE: CERVICAL/ENDOCERVICAL- COLLECTION TECHNIQUE: BRUSH/SPATULA ADEQ Comment [...] no HPV testing was performed. .Performed At: [address] [id number] PAPSMR Comment (Normal) Comments: The Pap smear is a screening test designed to aid in thedetection of premalignant and malignant conditions of theuterine cervix. It is not a diagnostic procedure andshould not be used as the sole means of detecting cervicalcancer. Both false-positive and false-negative reports dooccur. . PERFORM Comment (Normal) Comments: Kimberley Borgse, Anger Control Counselor (ASCP) SIGN Comment (Normal) Comments: Wendi Elaine MD, Pathologist 9-Xmn-935497:22 [facility]OSPITALFederico DIGITAL & CAD Radiology Report See Note (Normal) Comments: Exam Number: [id number] MAMMOGRAM, BILATERAL SCREENING DIGITAL AND CAD HISTORYRoutine [...] werealso examined with computer- aided detection software ([employer], [employer].). Reported By: SEAN AMAYA M.D. 5-Fwg-932020:21 DEXA BONE DENSITY STUDY () Radiology Report See Note (Normal) Comments: Exam Number: [id number] BONE DENSITOMETRY HISTORYPostmenopausal. TECHNIQUE Bone densitometry of [...] density is measured at 0.1% greater than [id number]. Digital lateral view for evaluation of vertebral deformityonly demonstrates no obvious compression fractures. The T-value ofthe left femoral neck is -0.8 which is normal. The T-value of thetotal hip is -0.3 which is normal. Bone mineral density is measuredat 5% less than in 2004. IMPRESSIONBone d ensitometry of the lumbar spine and left hip is within normallimits. Reported By: SEAN AMAYA M.D. 92-Bao-95174:08 CBCD,SMEAR DIFF BAND 3 % (Normal) Range: [...] mg/dL (Normal) Range: 1.5-2.2 :08 T3, FREE 99802 2.9 pg/mL (Normal) Range: 2.3-4.2 Comments: Performed At: [address] [id number] :08 T4 FREE,DIRECT 1.0 ng/dL (Normal) Range: 0.89-1.76 :08 TSH 1.40 {uIU/mL} (Normal) Range: 0.34-4.82 52-Mty-727602:59 LOWER EXT/JT ONLY (ROUTINE) Radiology Report See Note (Normal) Comments: Exam Number: [id number] MRI OF THE RIGHT KNEE STATEMENTRight knee [...] medial meniscus. Reported By: ABDULAZIZ HENRY M.D. 80-Wux-078443:21 KNEE,4 OR MORE VIEWS (MT) Radiology Report See Note (Normal) Comments: Exam Number: [id number] RIGHT KNEE, 4 VIEWS REASON FOR EXAMINATIONRight [...] throat bhavesh isolated. No beta-hemolyticstreptococcus isolated. :30 26-Jsa-460094:20 Rapid Strep Test, Office ([id number]) Comments: neg Rapid Strep Test, Office Negative [...] Report See Note (Normal) Comments: Exam Number: [id number] COMPUTED TOMOGRAPHY OF THE ABDOMEN WITH ORAL AND IV CONTRAST INDICATIONA 57-year-old female with epigastric pain, nausea. COMPARISONNone. TECHNIQUEContiguous transaxial images wer e obtained from the lung bases to thelevel of S1 following the uneventful administration of 100 cc [id number] intravenously. Oral contrast was also administered. REPORTLimited [...] 47-70 WBC 10.3 K/mm3 (Normal) Range: 4.4-11.0 37-Zxn-58204:00 COMP METABOLIC Comments: CALL RESULTS TO DR [...] T PROT 6.4 g/dL (Normal) Range: 6.4-8.2 85-Eqz-81867:00 ESR Comments: CALL RESULTS TO DR MAYORGA The date and/or time of collection was not indicated on therequisition as required by state and federal law. The dateof receipt of the specimen was used as the collection dateif not supplied. SED RATE 37 mm/h (Abnormal) Range: 0-30 :13 Urinalysis, Office (29631) UA - LEUKOCYTE ESTERASE Negative (Normal) UA [...] {uIU/mL} (Normal) Range: 0.34-4.82 :13 Urinalysis, Office (50902) Comments: done-jjp UA - BILIRUBIN Negative (Normal) UA - BLOOD Negative (Normal) UA - GLUCOSE Negative (Normal) UA - KETONES Negative mg/dL (Normal) UA - LEUKOCYTE ESTERASE Negative (Normal) UA - NITRITE Negative (Normal) UA - PH 5.0 (Normal) UA - PROTEIN Negative mg/dL (Normal) UA - SPECIFIC GRAVITY 1.005 (Normal) URINE UROBILINGN FARIBA TIMED Normal mg/dL (Normal) :44 Urinalysis, Office ([id number]) Comments: done UA - BLOOD Hemolyzed Large [...] radiculitis, unspecified Planned Observations URINE MADAY CULTURE-IDENTIFICATN ([id number])Indication: History of UTI On: :37 Request TSH ([id number])Indication: Acquired hypothyroidism On: :35 Request URINALYSIS, W/ MICRO ([id number])Indication: Essential hypertension On: :34 Request MICROALBUMIN: CREATININE RATIO (63429) AND (77855)Indication: Essential hypertension On: :34 Request METABOLIC PANEL, COMPREHENSIVE (20276)Indication: Essential hypertension On: :34 Request CBC W/AUTO DIFF WBC (27301)Indication: Essential hypertension On: :34 Request LIPOPROTEIN, BLD, BY NMR ([id number])Indication: Other and unspecified hyperlipidemia On: :34 Request CALCIFIDIOL (85528) VIT D 25Indication: Vitamin D deficiency, unspecified On: :34 Request URINE MADAY CULTURE-IDENTIFICATN ([id number])Indication: URINARY TRACT INFECTION, SITE NOT SPECIFIED On: 41-Aud-136847:53 Request Comments: post treatment culture Stool Guiac Test, Office (Medicare) (G0107)Indication: Hypercholesteremia On: 7-Ivg-873680:04 Request URINALYSIS, W/ MICRO (06873)Indication: Hematuria On: 01-Ocf-330212:41 Request Vitamin D Hydroxy (81919)Indication: Vitamin D deficiency, unspecified On: 68-Enh-854393:40 Request CBC W/AUTO DIFF WBC (94309)Indication: Essential hypertension On: 65-Zfe-454852:40 Request METABOLIC PANEL, COMPREHENSIVE (88505)Indication: Essential hypertension On: 96-Oej-470459:39 Request LIPID PANEL (58660)Indication: Hypercholesteremia On: 58-Eso-356529:39 Request TSH ([id number])Indication: Acquired hypothyroidism On: 25-Sko-767707:39 Request Vitamin D Hydroxy (80095)Indication: Vitamin D deficiency, unspecified On: 10-Bjs-825537:15 Request METABOLIC PANEL, COMPREHENSIVE (54604)Indication: Essential hypertension On: 48-Szn-580606:14 Request LIPID PANEL (65280)Indication: Other and unspecified hyperlipidemia On: 27-Lzw-758097:14 Request FECAL OCCULT- Tubes sent home (90040)Indication: Encounter for screening for malignant neoplasm of cervix On: 59-Rki-364278:09 Request Thin prep Pap (83975)Indication: Well woman exam On: 46-Prx-693829:46 Request LIPID PANEL (34143)Indication: Hypercholesteremia On: 64-Gao-940033:23 Request MADAY CULTURE-OTHER (38303)Indication: Cellulitis On: :22 Request METABOLIC PANEL, COMPREHENSIVE (27978)Indication: Essential hypertension On: :04 Request CBC WITH MANUAL DIFF (08284)Indication: Essential hypertension On: 20-Mkg-834529:04 Request Vitamin D Hydroxy (46696)Indication: Vitamin D deficiency, unspecified On: :04 Request TSH ([id number])Indication: Acquired hypothyroidism On: :04 Request LIPID PANEL (88769)Indication: Other and unspecified hyperlipidemia On: 60-Cqy-436987:04 Request Vitamin D Hydroxy (27696)Indication: Vitamin D deficiency, unspecified On: :25 Request METABOLIC PANEL, COMPREHENSIVE (38894)Indication: Essential hypertension On: :25 Request LIPID PANEL (92013)Indication: Other and unspecified hyperlipidemia On: :25 Request Amylase (42382)Indication: Abdominal pain, acute, right upper quadrant On: 30-Jbg-776926:05 Request Lipase (78229)Indication: Abdominal pain, acute, right upper quadrant On: 96-Xwn-922525:05 Request THROAT CULTURE (05885)Indication: ACUTE PHARYNGITIS (462.) On: 47-Clj-289084:37 Request CALCIFEDIOL (79928)Indication: Vitamin D deficiency, unspecified On: :35 Request URINALYSIS, W/ MICRO (20299)Indication: Essential hypertension On: 40-Yxy-449395:50 Request LIPID PANEL (90472)Indication: Other and unspecified hyperlipidemia On: 14-Lnp-984511:49 Request CBC WITH MANUAL DIFF ([id number])Indication: Essential hypertension On: :49 Request METABOLIC PANEL, COMPREHENSIVE (10555)Indication: Essential hypertension On: 80-Gcq-567476:49 Request TSH ([id number])Indication: Acquired hypothyroidism On: :49 Request SKIN TEST INTRADERMAL TB (28200)Indication: Erythema nodosum On: :49 Request Comments: Site- Left forearm MADAY CULTURE-OTHER (08210)Indication: Erythema nodosum On: :37 Request ANTISTREPTOLYSIN O-TITER (89429)Indication: Erythema nodosum On: 07-Xlc-778280:33 Request TSH (78213)Indication: Fatigue On: :22 Request URINALYSIS, W/ MICRO (11333)Indication: Erythema nodosum On: :20 Request C-REACTIVE PROTEIN (09133)Indication: Erythema nodosum On: :20 Request SED RATE ERYTHROCYTE (93292)Indication: Erythema nodosum On: :20 Request METABOLIC PANEL, COMPREHENSIVE (02818)Indication: Erythema nodosum On: 89-Zxl-443286:20 Request CBC WITH MANUAL DIFF ([id number])Indication: Erythema nodosum On: :20 Request XOCHILT (ANTINUCLEAR ANTIBODY) (30275)Indication: Erythema nodosum On: :19 Request RHEUMATOID FACTOR-QUANT (84609)Indication: Erythema nodosum On: :19 Request Thin prep Pap (76576)Indication: Well woman exam On: :17 Request URINALYSIS, W/ MICRO (41898)Indication: Essential hypertension On: :07 Request CBC WITH MANUAL DIFF ([id number])Indication: Essential hypertension On: :07 Request LIPID PANEL (39803)Indication: Other and unspecified hyperlipidemia On: :06 Request TSH (03258)Indication: Acquired hypothyroidism On: :06 Request METABOLIC PANEL, COMPREHENSIVE (71556)Indication: Essential hypertension On: :06 Request METABOLIC PANEL, COMPREHENSIVE (68348)Indication: Essential hypertension On: 33-Frf-161326:53 Request TSH (28532)Indication: Acquired hypothyroidism On: 81-Skg-676410:53 Request LIPID PANEL (71428)Indication: Other and unspecified hyperlipidemia On: 17-Qmc-980944:53 Request LIPID PANEL (00773)Indication: Other and unspecified hyperlipidemia On: 75-Pwr-526493:31 Request METABOLIC PANEL, COMPREHENSIVE (41305)Indication: Essential hypertension On: 74-Qiq-850443:30 Request CBC WITH MANUAL DIFF (55979)Indication: Essential hypertension On: 07-Qxs-243691:30 Request TSH (34796)Indication: Acquired hypothyroidism On: 69-Olf-458306:30 Request MADAY CULTURE-OTHER (05171)Indication: Neoplasm of uncertain behavior of skin On: 84-Nog-704015:26 Request Thin prep Pap (16471)Indication: Well woman exam On: 64-Luj-560836:00 Request Magnesium (57512)Indication: Palpitations On: 80-Xcq-477625:12 Request T4, FREE (THYROXINE) (56969)Indication: Palpitations On: 55-Eci-087149:12 Request T3, FREE (TRIDOTHYRONINE) (99570)Indication: Palpitations On: 74-Pya-742835:11 Request CBC WITH MANUAL DIFF (63432)Indication: Essential hypertension On: 39-Nuq-265282:11 Request METABOLIC PANEL, COMPREHENSIVE (37930)Indication: Essential hypertension On: 13-Bfo-232713:10 Request TSH ([id number])Indication: Acquired hypothyroidism On: 11-Kzh-448582:10 Request LIPID PANEL (29839)Indication: Other and unspecified hyperlipidemia On: 32-Zfx-293048:10 Request METABOLIC PANEL, COMPREHENSIVE (56604)Indication: Essential hypertension On: 61-Ixr-341738:06 Request URINALYSIS W/O MICRO (71822)Indication: Essential hypertension On: 90-Xjf-640775:05 Request TSH ([id number])Indication: Acquired hypothyroidism On: 39-Uhu-072120:05 Request HEPATIC FUNCTION PANEL (06054)Indication: Other and unspecified hyperlipidemia On: 68-Dyr-128252:05 Request LIPID PANEL (98031)Indication: Other and unspecified hyperlipidemia On: 52-Iyz-378410:05 Request FERRITIN (04470)Indication: Other and unspecified hyperlipidemia On: 13-Lgp-100652:53 Request HEPATIC FUNCTION PANEL (99633)Indication: Other and unspecified hyperlipidemia On: 14-Jyk-788116:53 Request LIPID PANEL (68490)Indication: Other and unspecified hyperlipidemia On: 25-Qru-808003:53 Request MADAY CULTURE-OTHER (58752)Indication: ACUTE PHARYNGITIS (462.) On: 77-Imu-531183:20 Request CBC WITH MANUAL DIFF ([id number])Indication: Essential hypertension On: 35-Uas-290302:26 Request LIPID PANEL (42656)Indication: Other and unspecified hyperlipidemia On: 14-Nlv-003946:22 Request METABOLIC PANEL, COMPREHENSIVE (54472)Indication: Hyponatremia On: :22 Request TSH ([id number])Indication: Acquired hypothyroidism On: : Request METABOLIC PANEL, COMPREHENSIVE (68123)Indication: Hyponatremia On: 63-Nic-832787:00 Request CBC WITH MANUAL DIFF ([id number])Indication: Anemia, unspecified On: 11-Ooi-531312:00 Request SED RATE ERYTHROCYTE ([id number])Indication: Epigastric pain On: 33-Cnz-225826:03 Request C-REACTIVE PROTEIN ([id number])Indication: Epigastric pain On: 36-Lgg-700527:03 Request METABOLIC PANEL, COMPREHENSIVE ([id number])Indication: Epigastric pain On: 70-Mbf-509612:02 Request CBC WITH MANUAL DIFF (48575)Indication: Epigastric pain On: 02-Pmu-136297:02 Request METABOLIC PANEL, COMPREHENSIVE (47048)Indication: Essential hypertension On: 78-Yxn-297477:49 Request TSH ([id number])Indication: Acquired hypothyroidism On: 26-Eii-786623:42 Request LIPID PANEL (74373)Indication: Other and unspecified hyperlipidemia On: 11-Yai-873633:42 Request URINE MADAY CULTURE (FARIBA COL COUNT) (97894)Indication: Dysuria On: 5-Xnq-701420:04 Request LIPID PANEL ([id number])Indication: Other and unspecified hyperlipidemia On: 3-Cnt-458909:05 Request MICROALBUMIN URINE QUANT (90461)Indication: Essential hypertension On: 0-Dwh-476180:05 Request TSH (04784)Indication: Acquired hypothyroidism On: 7-Mej-255677:04 Request URINALYSIS W/O MICRO (95386)Indication: Essential hypertension On: :04 Request METABOLIC PANEL, COMPREHENSIVE (93049)Indication: Essential hypertension On: :04 Request CBC WITH MANUAL DIFF ([id number])Indication: Essential hypertension On: :04 Request Planned Encounters Medical; 6 Month FU - On: 12-Jan-2019 9:45 [facility] Windy Mayorga DO, DO, Kathleen Planned Procedures ELECTROCARDIOGRAM, COMPLETE (ECG) On: 14-Jul-2018 Intent (43586)By: Windy Mayorga DO Comments: nsr no acute chg - poor R wave progression and nonspecific st flattening Windy Mayorga DO Flu Vaccine (Quadrivalent) 92120Gn: On: 11-Jun-2018 Intent Visit, Nurse Comments: Lot #:[id number] date: 7-02-73Ggeofh given:0.5mlRoute: IMSite given:L DltdGiven by: Melissa and ABN signed Fluarix Ultrasound - Breast - LeftBy: Concetta On: 04-Sep-2017 Intent Windy COLEY DO, Kathleen [id number]-BM-[id number] BEHAVIORAL COUNSELING On: 29-Jun-2017 Intent FOR OBESITY, 15 MINUTES (G0447)By: Windy Mayorga DO, DO, Kathleen DEXA SCAN AXIAL SKELETON (04927)By: On: 29-Jun-2017 Intent Windy Mayorga DO, DO, Kathleen SCREENING DIGITAL TOMOSYNTHESIS OF On: 29-Jun-2017 Intent BREAST (68205)By: Windy Mayorga DO, DO, Kathleen ELECTROCARDIOGRAM, COMPLETE (ECG) On: 29-Jun-2017 Intent (74142)By: Windy Mayorga DO Comments: nsr no acute chg Windy Mayorga DO Flu Vaccine (Quadrivalent) 93261Sd: On: 17-Jun-2017 Intent Visit, Nurse Comments: Lot #[id number]/15/18ite-L dltd, IMDose prefilled syringegiven by:DAGMAR Mathis and ABN signed MAMMOGRAM, SCREENING, BOTH BREAST On: 16-May-2016 Intent (57486)By: Windy Mayorga DO, DO, Kathleen Flu Vaccine (Quadrivalent) 27590Fr: On: 07-May-2016 Intent ConcettaWindy phipps DO Concetta COLEY, Comments: Lot:[id number]:02/27/17Dose:0.5mLRoute:IMSite:L DltdGiven By:GENTRY signed Windy ELECTROCARDIOGRAM, COMPLETE (ECG) On: 07-May-2016 Intent (81818)By: Windy Mayorga DO Comments: nsr no acute chg Concetta COLEY Windy Aerosol Treatment (12661)By: Terri On: 26-Mar-2016 Intent MARKSMANSHIP INSTRUCTOR, Lucretia Radiology - Chest- PA and LatBy: On: 03-Dec-2015 Intent Fast DO Raya A Aerosol Treatment (74886)By: Terri On: 12-Nov-2015 Intent MARKSMANSHIP INSTRUCTOR, Lucretia Flu Vaccine (Quadrivalent) 97208Xb: On: 07-Jun-2015 Intent Visit, Nurse Comments: Lot #[id number]-L dltd, IMDose prefilled syringegiven by:DAGMAR Mathis and DANNIELLE signed Pap Smear, Medicare (Q0091)By: Juve On: 11-Apr-2015 Intent DO Raya A MAMMOGRAM, SCREENING, BOTH BREAST On: 11-Apr-2015 Intent (23642)By: Cuauhtemoc Viera DOa A Aerosol Treatment (61720)By: Terri On: 09-Apr-2015 Intent MARKSMANSHIP INSTRUCTOR, Lucretia Radiology - Sacrum/CoccyxBy: Fast On: 04-Oct-2014 Intent DO Raya A ADMINISTRATION OF INFLUENZA VIRUS On: 09-Jun-2014 Intent VACCINE (G0008)By: Visit, Nurse FLU VAC, SPLIT, >3 YEARS, INTRAMUSC On: 09-Jun-2014 Intent (05462)By: Cuauhtemoc Viera DOa A Comments: Lot:[id number]:02/27/15Dose:0.5mLRoute:IMSite:L DltdGiven By:GENTRY signed MAMMOGRAM, SCREENING, BOTH BREAST On: 29-Mar-2014 Intent (08755)By: Juve COLEY Raya A Comments: mar EKG (50966)By: Cuauhtemoc Viera DOa A On: 29-Mar-2014 Intent [...] SPLIT, >3 YEARS, INTRAMUSC On: 19-Jul-2013 Intent (53309)By: Raya Viera DO Comments: lot [id number] 2014site/route L olga, IMamt 0.5mlVIS and ABN signed when applicableChelsea, [facility] ADMINISTRATION OF INFLUENZA VIRUS On: 19-Jul-2013 Intent VACCINE (G0008)By: Raya Viera DO Eprescribed prescriptions (G8553)By: On: 19-Jul-2013 Intent Jennifer Coronado Pulse Oximetry (36214)By: Randall On: 22-Apr-2013 Intent THALIA EKG (39041)By: Jennifer Coronado On: 28-Jan-2013 Intent Comments: ekg showed normal sinus rhythym, normal axis, no acute st/t wave changes MAMMOGRAM, SCREENING, BOTH BREASTS On: 28-Jan-2013 Intent (82349)By: Raya Viera DO Comments: end march Eprescribed prescriptions (G8553)By: On: 09-Sep-2012 Intent Concetta COLEY, Windy Mayorga DO, Windy IMMUNIZ ADMNIN, 1 VAC, SNGL/COMBO On: 26-Jul-2012 Intent (20418)By: Raya Viera DO Eprescribed prescriptions (G8553)By: On: 26-Jul-2012 Intent Jennifer Coronado PNEUM VAC ADLT/IMUMNOSPR, SBC/INTRM On: 26-Jul-2012 Intent (08599)By: Raya Viera DO Comments: Lot:[id number]:Dose:0.5mLRoute:IMSite:shiva harrellGiven By:GENTRY signed Breast Screening - BilateralBy: Juve On: 29-Mar-2012 Intent Raya COLEY Nuclear Medicine - HIDA w/CPKBy: On: 19-Mar-2012 Intent Chucky Donna GROVE Ultrasound - GallbladderBy: Chucky On: 15-Mar-2012 Intent Donna GROVE Eprescribed prescriptions ([id number])By: On: 19-Dec-2011 Intent Windy Mayorga DO, DO, Kathleen EKG (31309)By: Raya Viera DO On: 27-Oct-2011 Intent Comments: ekg showed normal sinus rhythym, normal axis, no acute st/t wave changes nonspecific old t wave inversion CT - ChestBy: Raya Viera DO On: 03-Jun-2011 Intent Comments: pe protocol-not stat but sometime this week Spirometry (66476)By: Juve COLEY, On: 26-May-2011 Intent Raya Arechiga Comments: good effort and curve normal Radiology - Chest- PA and LatBy: On: 26-May-2011 Intent Raya Viera DO DRAIN/INJECT, JOINT/BURSA (91102)By: On: 02-May-2011 Intent Windy Mayorga DO, DO, Comments: 2 cc marcaine and 1 cc kenolog Windy TDAP VACCINE >7 IM (74890)By: Juve On: 11-Apr-2011 Raya Jaimes DO Comments: Lot #: [id number] date: 05/13Amount given: 0.5 mlRoute: IMSite given: left deltoidGiven by: Hawk Pardo RN EKG (81821)By: Jennifer oCronado On: 17-Feb-2011 Intent Comments: ekg showed normal sinus rhythym, normal axis, no acute st/t wave changes nonspecific t wave inversion anteriorly- not changed- Eprescribed prescriptions (G8553)By: On: 17-Feb-2011 Intent Raya Viera DO DXA, BONE DENSITY, AXIAL SKELETON On: 17-Feb-2011 Intent (50114)By: Raya Viera DO MAMMOGRAM, SCREENING, BOTH BREASTS On: 17-Feb-2011 Intent (37819)By: Raya Viera DO Aerosol Treatment (30294)By: Juve On: 14-Aug-2010 Intent Raya COLEY Spirometry (17494)By: Cliff On: 14-Aug-2010 Intent Comments: good effort and curve -decrease small airways Radiology - Chest- PA and LatBy: On: 14-Aug-2010 Intent Raya Viera DO Pulse Oximetry (44246)By: Cliff, On: 14-Aug-2010 Intent Comments: 96% Pulse Oximetry (06926)By: Chucky GROVE, On: 31-Jul-2010 Intent Liat Aerosol Treatment (01664)By: Chucky On: 31-Jul-2010 Intent MAINE Liat Pulse Oximetry (20602)By: Chucky GROVE On: 15-Jul-2010 Intent Liat Aerosol Treatment (13281)By: Chucky On: 15-Jul-2010 Intent MAINE Liat ELECTROCARDIOGRAM, COMPLETE (ECG) On: 24-Dec-2009 Intent (01505)By: Donna Locke CNP MAMMOGRAM, SCREENING, BOTH BREASTS On: 25-Jun-2009 Intent (02383)By: Raya Viera DO Wax CurettesBy: Donna Locke CNP On: 07-Jun-2009 Intent Ear Irrigation (11862)By: Chucky On: 07-Jun-2009 Intent Donna GROVE FLU VAC, SPLIT, >3 YEARS, INTRAMUSC On: 05-Jun-2009 Intent (95362)By: Tuyet Camejo IMMUNIZ ADMNIN, 1 VAC, SNGL/COMBO On: 05-Jun-2009 Intent (78783)By: Tuyet Camejo Comments: Lot #[id number]-left deltoidgiven by:CDH DRAIN SKIN ABSCESS, SIMPLE/SINGLE On: 13-Nov-2008 Intent (54920)By: Donna Locke CNP Holter Moniter (52318)By: Randall On: 12-Sep-2008 Intent THALIA Comments: placement Pt given diary and instructions she voices understanding hermesell 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 facing machine 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 DXA, BONE DENSITY, AXIAL SKELETON On: 16-Aug-2008 Intent (30283)By: Raya Viera DO MAMMOGRAM, SCREENING, BOTH BREASTS On: 16-Aug-2008 Intent (44253)By: Raya Viera DO Holter Monitor 24 hrsBy: Juve COLEY, On: 16-Aug-2008 Intent Raya A EKG (89838)By: Jennifer Coronado On: 16-Aug-2008 Intent Comments: ekg showed normal sinus rhythym, normal axis, no acute st/t wave changes t wave inversion anteriorly unchanged IMMUNIZ ADMNIN, 1 VAC, SNGL/COMBO On: 16-Jun-2008 Intent (22135)By: Renetta Hough LPN FLU VAC, SPLIT, >3 YEARS, INTRAMUSC On: 16-Jun-2008 Intent (87583)By: Renetta Hough LPN Comments: 0.5cc given im lt olga H.Horn SPECIMEN HNDLNG/TRNSPRT, OFFC > LAB On: 18-Jan-2008 Intent (53800)By: Jennifer Coronado CT - AbdomenBy: Cuauhtemoc Viera DOa A On: 19-Jul-2007 Intent Comments: stat tonight call wet read EKG (18017)By: THALIA Pereira On: 21-Jun-2007 Intent Comments: ekg showed normal sinus rhythym, normal axis, no acute st/t wave changesasymetric twave inversion- no change FLU VAC, SPLIT, >3 YEARS, INTRAMUSC On: 21-Jun-2007 Intent (18441)By: THALIA Pereira Comments: Lot #:Expiration date:Amount given:Route: IMSite given:left deltoidGiven by: iveth Lot # [id number] 02-28-08 IMMUNIZ ADMNIN, 1 VAC, SNGL/COMBO On: 21-Jun-2007 Intent (92431)By: THALIA Pereira FLU VAC, SPLIT, >3 YEARS, INTRAMUSC On: 06-Jul-2006 Intent (47131)By: THALIA Pereira IMMUNIZ ADMNIN, 1 VAC, SNGL/COMBO On: 06-Jul-2006 Intent (39762)By: THALIA Pereira Comments: Lot #:Expiration date:Amount given:Route: [...] Hypercholesteremia : DISCONTINUED - METABOLIC PANEL, COMPREHENSIVE (90469) Indication: Hypercholesteremia Hypercholesteremia : DISCONTINUED - LIPID PANEL (15657) Indication: Hypercholesteremia BMI 30.0-30.9,adult : How to [...] The patient does have durable power of real estate attorney and living will. The patient has noticed nothing from the geriatic depression scale. Other providers contributing to the patient's care are layboy tender and clockmaker apprentice. Encounter Diagnosis: BMI 30.0-30.9,adult, Nonsmoker, Acquired hypothyroidism, [...] The patient does have durable power of real estate attorney and living will. The patient has [...] The patient does have durable power of real estate attorney and living will. The patient has [...] Well Women Exam: no breast mass no rhf2ysrstpglidh Encounter Diagnosis: Annual Medicare Physical (V70.0), Well [...] The patient does have durable power of real estate attorney and living will. The patient has noticed nothing from the geriatic depression scale. Other pr oviders contributing to the patient's care are layboy tender (Dr. Candelario), gastrologist (Dr. Marion) and other: [...] thigh [facility] - bp stable and no more [...] of angina ,history of CHF ,history of [place] ,smoking ,syncope or use of decongestants. Note [...] weight :. 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
--- OUTSIDE RECORDS SUMMARY | 2018-11-21 02:23 | XMS RPT_ITS | Continuity of Care Document ---
:1950 Author Organization [facility] Address [address] [facility] [facility] [address] [place] [address] Phone Care Team Providers Name Role Phone Windy Mayorga DO Unavailable Dr. John Paul Marion Unavailable Christi Hernández Unavailable Unavailable THALIA Pereira Unavailable Unavailable Donna Locke CNP Unavailable Jennifer Coronado Unavailable Unavailable CLAYTON Hough Unavailable Unavailable Melonie Kline Unavailable Unavailable Unavailable Unavailable Problems Name Dates Details Abnormal chest x-ray (R93.89, 793.2) Status: Active Abnormal mammogram (R92.8, 793.80) Status: Active Acquired hypothyroidism (E03.9, 244.9) Status: Active Acute cystitis without hematuria (N30.00, 595.0) Status: Active ACUTE PHARYNGITIS (462.) (J02.9, 462) Status: Active Allergic Rhinitis (J30.9, 477.9) Comments: chronic stable-continue present regimen Status: Active Allergic rhinitis due to other allergen (J30.89, 477.8) Comments: try antihistamine /singulair if not improved will send to do supervisor sawmill Status: Active Annual Medicare Phyiscal WITHOUT abnormal findings (Renamed from Encounter for general adult medical examination without abnormal findings) (Z00.00, V70.9) Status: Active Anxiety (F41.9, 300.00) Comments: stable Status: Active BMI 29.0-29.9,adult (Z68.29, V85.25) Status: Active BMI 30.0-30.9,adult (Z68.30, V85.30) Status: Active BMI 31.0-31.9,adult (Z68.31, V85.31) Status: Active Body mass index 32.0-32.9, adult (Z68.32, V85.32) Status: Active Breast cancer screening (Z12.39, V76.10) Status: Active BRONCHITIS, NOT SPECIFIED ACUTE OR CHRONIC (490.) (J40, 490) Status: Active Change in nail appearance (R29.898, 729.89) Comments: etilogy>?-- recommend seeking derm Status: Active Chronic pain of both knees (M25.561, 719.46) Status: Active Conjunctivitis (H10.9, 372.30) Status: Active Cough (R05, 786.2) Comments: sinus drainage use mucinex Status: Active Cough (R05, 786.2) -May-2011 Status: Active Deliveries (Parity) Comments: 3 Status: [...] (Z12.11, V76.51) Comments: last scope 2012ordered cologard 2017 Status: Active Encounter for screening mammogram for breast cancer (Renamed from Encounter for screening mammogram for malignant neoplasm of breast) (Z12.31, V76.12) Status: Active Essential hypertension (I10, 401.9) Status: Active Fecal occult blood test positive (R19.5, 792.1) Status: Active Flu-like symptoms (R68.89, 780.99) Status: Active Hair loss (L65.9, 704.00) Status: Active Hallux valgus, acquired (735.0) Status: Active Hammer toe of second toe of left foot (M20.42, 735.4) Status: Active Hematuria (R31.9, 599.70) Status: Active History of dysuria (Z87.898, V13.00) Status: Active History of sarcoidosis (Z86.2, V12.29) Comments: sees david once a yr -- has residual minor cough Status: Active Hypotension (I95.9, 458.9) Comments: will evaluate with lower dose atenolol and pt to bring BP pulse [facility] dropped BP and felt dizzi found to have low BP with frame fixer, did not eat Status: Active Knee pain (M25.569, 719.46) Comments: R knee Status: Active Need for prophylactic vaccination and inoculation against influenza (Z23, V04.81) Status: Active Nonsmoker (Z78.9, V49.89) Status: Active Osteoarthrosis, not specified whether generalized/localized, lower leg (M17.9, 715.96) Status: Active Osteopenia of the elderly (M85.80, [...] she has followup with mehran Status: Active Sciatica without lumbago, left (M54.32, 724.3) Comments: talk about sitting in car how to raise u0, back extension exercise, hamstring stretches. medrol dose eyad then go to advil tid. will be traveling. if not better wityh snservative things then send PT Status: Active screening Status: Active Sinusitis, acute [...] Ordered:28-Dec-2017 Christi Hernández Start : 28-Dec-2017 Active Multi-Day Oral Tablet 1 qd Active [...] Quantity: 30 {Tablet_ER_12HR} Refills: 0 Ordered:17-Feb-2011 Jennifer Corondao Start : 31-Jul-2010 End : 17-Feb-2011 Inactive [...] 14 {Tablet} Refills: 0 Ordered:13-Nov-2008 Chucky GROVE Lita Start : 13-Nov-2008 End : 20-Nov-2008 Inactive [...] Start : 18-Feb-2016 End : 26-Mar-2016 Discontinued ANNALLE, 10B CELL (Oral Capsule) 1 Capsule bid for 0 days Quantity: 60 {Capsule} Refills: 0 Ordered:05-Apr-2012 Jennifer Coronado Start : 05-Apr-2012 End : 05-Apr-2012 Discontinued Macrobid 100 MG Oral Capsule 1 Capsule BID for 0 days Quantity: 20 {Capsule} Refills: 0 Ordered:14-Sep-2017 Erica Pichardo Start : 29-Jun-2017 End : 14-Sep-2017 Discontinued PEPCID, 20MG (Oral Tablet) 1 Tablet [...] check Hida Status: Inactive as of 09-Sep-2012 Acute sinusitis (J01.90, 461.9) Status: Inactive as of 24-Dec-2009 Anemia, unspecified (D64.9, 285.9) Status: Resolved as of 17-Apr-2010 burning tongue sx- gave samples nexium - if not better- she is seeing scottie- ask his opinion Status: Resolved as of 17-Apr-2010 Cellulitis (L03.90, 682.9) Status: Resolved as of 28-Jan-2013 Cerumen impaction (H61.20, 380.4) Status: Inactive as of 24-Dec-2009 Coccyalgia (M53.3, 724.79) Status: Inactive as of [...] (R53.83, 780.79) Status: Resolved as of 28-Jan-2013 Flu-like symptoms (R68.89, 780.99) Status: Resolved as of 28-Dec-2017 Hearing loss, unspecified laterality (389.9) Status: Inactive as of 24-Dec-2009 Hypercholesteremia (E78.00, 272.0) Status: Resolved as of [...] recurrent UTI Status: Inactive as of 22-Apr-2013 screen Status: Inactive as of 24-Dec-2009 screening Status: Inactive as of 22-Apr-2013 screening Status: Inactive as of 11-Apr-2011 Sebaceous Cyst (L72.3, 706.2) Status: Resolved as [...] Result: Comments: See Note; NOTES: [facility] [address] [place] [address] OFFICE VISIT Date of Service: 10/10/17 MR#: [id number] Acct: [id number] Name: JULIET SHORT Rep #: [id number] : 1950 Provider: Cuba GONSALVES Age/Sex: 67/F Location: [facility] Status: Signed Intake Vital Signs10/10/17 Height 5 [...] 5 Days #10 10/10/17 [History Confirmed 10/10/17] [facility] Medical History Knee pain (Acute) [...] pattern, No confusion Exam Const General: cooperative HENTN Head: normal to inspection Ears: hearing grossly [...] the above. This note was generated with Grey Area dictation software. It may contain incorrect words, [...] Limited Unilateral Result: Comments: See Note; NOTES: [facility] Imaging Services [address] [place] [address] Breast Limited Unilateral MR#: [id number] Acct: [id number] Name: JULIET SHORT Rep #: [id number] : 1950 F 67 From: Cruzito Briggs MD PCP: Windy Mayorga DO Status: REG CLI Study: Breast Limited Unilateral Date of Exam: 09/07/17 Exam# [id number] Ordering Dr: Windy Mayorga DO STUDY: ULTRASOUND [...] facility within 30 days. Electronically Signed: Cruzito Briggs MD at 15:14 EST Tel [phone], Service support , CC: Windy Mayorga DO Relocation Counselor: Signed 03-Sep-2017 Dexa Bone Density Study (HP) Result: Comments: See Note; NOTES: [facility] Imaging Services [address] [facility] [address] Dexa Bone Density Study (HP) MR#: [id number] Acct: [id number] Name: HEIDIJULIET K Rep #: [id number] : 1950 F 67 From: Cruzito Briggs MD PCP: Windy Mayorga DO Status: REG CLI Study: Dexa Bone Density Study () Date of Exam: 09/08/17 Exam# [id number] Ordering Dr: Delfina Mayorga DO STUDY: DUAL [...] [employer]oporosis Foundation [email or web address] Electronically Signed: Cruzito Briggs MD at 8:30 EST Tel [phone], Service support , CC: Windy Mayorga DO Relocation Counselor: Signed 03-Sep-2017 SCREENING MAMM (CAD), BILAT Result: Comments: See Note; NOTES: [facility] Imaging Services [address] [place] [address] SCREENING MAMM (CAD), BILAT MR#: [id number] Acct: [id number] Name: JULIET SHORT Rep #: [id number] : 1950 F 67 From: Cruzito Briggs MD PCP: Windy Mayorga DO Status: [facility] Study: SCREENING MAMM (CAD), BILAT Date of Exam: 09/03/17 Exam# [id number] Ordering Dr: Windy Mayorga DO MAMMOGRAPHY - [...] delay biopsy of a clinically suspicious abnormality. [id number] Electronically Signed: Cruzito Briggs MD at 14:17 EST Tel [phone], Service support , CC: Windy Mayorga DO Relocation Counselor: Signed 30-Mar-2017 Inital Evaluation (1) - PT Result: Comments: See Note; NOTES: [facility] [address] [place] [address]. [address] [place] [address] Fax REHABILITATION SERVICES INITIAL EVALUATION MR#: [id number] Acct: [id number] Name: JULIET SHORT Rep #: [id number] : 1950 67 From: Kimberley Clemente DPT Referring Dr.: Cyndy Ann DPM Status: REG RCR Insurance: MEDICARE P ART A B AARP Patient's Visit Information JULIET SHORT is a 67 year old F referred to Physical Therapy by Cyndy Ann DPM with a diagnosis of Plantar Fascitis. Date of Evaluation: 03/30/17 Phy sical Therapist: Kimberley Clemente - Visit Plan Frequency: 2x /Week Duration: 2 Weeks Plan: Dry Needling - Subjective Subjective: Patient reports plantar fascitis on the right- has had it before and it w ent away on its own starting 3 years ago- stretches and strengthening with good shoes. This flare started in Oct when she went to [facility]- has been fighting with it since. [...] and is much better. 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 Does not walk on the [employer]. Wears good shoes and power step but [...] to evaluate your patient. For Medicare and [facility] plans, please review the plan of care and approve it. It will need to be FAXED BACK to us at [phone] for Medicare purposes. Please let me know [...] Summary (1) Result: Comments: See Note; NOTES: [facility] [address] [place] [address]. [address] [place] [address] Fax REHABILITATION SERVICES ALBERTAAR SUMMARY MR#: [id number] Acct: [id number] Name: JULIET SHORT Rep #: [id number] : 1950 66 From: Cert. MAIRA Stone [...] please feel free to call me at [phone]. Thank you for the referral of this patient. Sincerely, Sunshine Arechiga Cro ss <Electronically signed by Cert. MAIRA Stone PTT> 11/26/16 9768 CC: Windy Mayorga DO TIFFANY Signed 29-Sep-2016 Inital Evaluation (1) - PT Result: Comments: See Note; NOTES: [facility] [address] [place], [place] [address] Fax REHABILITATION SERVICES INITIAL EVALUATION MR#: [id number] Acct: [id number] Name: JULIET SHORT Rep #: [id number] : 1950 66 From: Sunshine Green PT, Cert. MDT Referring Dr.: Windy Mayorga DO Status: REG RCR Insurance: [place] [employer] PART A B AARP Patient's Visit Information [...] RETIRED. [employer]. 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 [employer] 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 Disability: NO. Present symptoms: LEFT LOW BACK/BUTTOCK AND POSTERIOR THIGH. ALSO HAS INTERMITTENT LEFT THIGH TINGLING. Present since: ABOUT 3 MONTHS AGO. Pain Scale: 0- 8/10. Currently: /10. GETS BETTER AND GETS WORSE RANDOMLY. Commenced [...] to evaluate your patient. For Medicare and [facility] plans, please review the plan of care and approve it. It will need to be FAXED BACK to us at [phone] for Medicare purposes. Please let me know [...] AND CAD Result: Comments: See Note; NOTES: [facility] Imaging Services [address] [place] [address] Verdana 4d Bilat Scrn Digital AND CAD MR#: [id number] Acct: [id number] Name: JULIET SHORT Rep #: [id number] : 1950 F 66 From: Cruzito Briggs MD PCP: Windy Mayorga DO Status: REG CLI Study: Bilat Scrn Digital AND CAD Date of Exam: 06/26/16 Exam# [id number] Ordering Dr: Windy Mayorga DO MAMMOGRAPHY - [...] delay biopsy of a clinically suspicious abnormality. [id number] Electronically Signed: Cruzito Briggs MD at 14:03 EDT Tel [phone], Service support [phone], CC: Windy Mayorga DO Relocation Counselor: Signed 26-May-2016 Chest PA and Lateral Result: Comments: See Note; NOTES: [facility] Imaging Services [address] [place] [address] Verdana 4d Chest PA and Lateral MR#: [id number] Acct: [id number] Name: JULIET SHORT Rep #: [id number] : 1950 F 66 From: Samuel Cutler MD PCP: Windy Mayorga DO Status: REG CLI Study: Chest PA and Lateral Date of Exam: 05/26/16 Exam# [id number] Ordering Dr: Gatito Laurent MD STUDY: X-RAY [...] MD at 0:00 EDT , Service support [phone], CC: Windy Mayorga DO; Gatito Laurent MD Relocation Counselor: Signed 03-Dec-2015 Chest PA and Lateral Result: Comments: See Note; NOTES: [facility] Imaging Services [address] [place] [address] Verdana 4d Chest PA and Lateral MR#: [id number] Acct: [id number] Name: JULIET SHORT Rep #: [id number] : 1950 F 65 From: Rush Arauz MD PCP: Raya Viera DO Status: REG CLI Study: Chest PA and Lateral Date of Exam: 12/03/15 Exam# [id number] Ordering Dr: Wyatt Viera DO STUDY: X-RAY [...] at 6:54 EDT Tel , Service support [phone], RAD/Chest PA and Lateral IMPRESSION: No acute cardiopulmonary disease is seen, although I suspect some inters titial lung disease or mild fibrotic changes as could be seen with parenchymal phase of sarcoidosis, interval regression of the hilar prominence or adenopathy previously demonstrated. Electronically Signed: Donnie Arauz MD at 6:54 EDT Tel , Service support [phone], CC: Raya Viera DO Relocation Counselor: Signed 03-Dec-2015 Spirometry (28294) Comments: good effort and curve normal- alot of coughing Result: 27-Apr-2015 Bilat Scrn Digital AND CAD Result: Comments: See Note; NOTES: [facility] Imaging Services [address] [place] [address] Breast Imaging Report MR#: [id number] Acct: [id number] Name: JULIET SHORT Rep #: [id number] : 1950 F 65 From: Cruzito Briggs MD PCP: Raya Viera DO Status: REG CLI Study: Bilat Scrn Digital AND CAD Date of Exam: 04/27/15 Exam# [id number] Ordering Dr: Raya Viera DO MAMMOGRAPHY - [...] these results will be sent to the [facility] ient by the facility within 30 days. Approximately 10% of breast cancers are not detected by mammography. A normal mammogram should not delay biopsy of a clinically suspicious abnormality. Electro nically Signed: Cruzito Briggs MD at 8:58 EDT Tel [phone], Service support [phone], CC: Raya Viera DO Relocation Counselor: Signed 05-Oct-2014 Sacrum-Coccyx min 2 Views Result: Comments: See Note; NOTES: [facility] Imaging Services [address] [place] [address] Radiology Report MR#: [id number] Acct: [id number] Name: JULIET SHORT Rep #: [id number] : 1950 F 64 From: Mahendra Bedoya DO PCP: Raya Viera DO Status: REG CLI Study: Sacrum-Coccyx min 2 Views Date of Exam: 10/05/14 Exam# [id number] Ordering Dr: Raya Viera DO STUDY: X-RAY [...] Mahendra Bedoya DO at 17:00 EST Tel [phone], Service support [phone], CC: Raya Viera DO Relocation Counselor: Signed 26-Apr-2014 Bilat Scrn Digital & CAD Result: Comments: See Note; NOTES: [facility] Imaging Services [address] [place] [address] Breast Imaging Report MR#: [id number] Acct: [id number] Name: JULIET SHORT Rep #: [id number] : 1950 F 64 From: Cruzito Briggs MD PCP: Raya Viera DO Status: REG CLI Exam# [id number] Ordering Dr: Raya Viera DO MAMMOGRAPHY - BILATERAL SCREENING REASON FOR EXAM: Gurjit veloz, 64 years old. Routine annual screening examination. [...] clinically suspicious abno rmality. Electronically Signed: Cruzito Briggs MD at 9:13 EDT Tel [phone], Service support [phone], CC: Raya Viera DO Relocation Counselor: Signed 26-Oct-2013 Knee 4 or More Views Result: Comments: See Note; NOTES: [facility] Imaging Services [address] [place], [place] [address] [place] [address] Radiology Report MR#: [id number] Acct: [id number] Name: JULIET SHORT Rep #: [id number] : 1950 F 63 From: Cruzito Briggs MD PCP: Raya Viera DO Status: REG CLI Study: Knee 4 or More Views Date of Exam: 10/26/13 Exam# [id number] Ordering Dr: Windy Mayorga DO STUDY : [...] the medial femoral condyle. Electronically Signed: Cruzito Briggs M.D. at 16:16 EST , Service support [phone], CC: Raya Viera DO; Windy Mayorga DO Relocation Counselor: Signed Immunization Name Dates Details Influenza (3 years and up) on: 06-Jul-2006 Influenza (3 years and up) on: 21-Jun-2007 Comments: Lot #:Expiration date:Amount given:Route: IMSite given:left deltoidGiven by: iveth Lot # [id number] exp 02-28-08 Influenza (3 years and up) on: 16-Jun-2008 Comments: 0.5cc given im lt olga H.Horn Influenza (3 years and up) on: 05-Jun-2009 Pneumococcal conjugate vaccine, 13 valent, IM on: 2014 Comments: Prevnar Family History Unknown Family Member Name Dates Details Brother 1 Comments: In good health Status: Active Father Comments: CA, Prosatate CA, HTN Status: Active Mother Comments: [...] smoker Vital Signs Date Test Result Details :32 Temperature 97.4 f Comments: Method: Temporal [...] kg/m2 Body Surface Area Calculated 1.84 m2 60-Jia-774809:20 Pulse 78 /min Comments: Pattern: Regular Respiration [...] 0.00 cm Results Date Description Value Details 42-Aab-842336:15 Microscopic Examination Comments: PATIENT WAS FASTINGPERFORMED BY: JAMES [facility] Zueexd9539 [facility] [id number] Bacteria None seen (Normal) Mucus Threads Present (Normal) Epithelial Cells (non renal) 0-10 {/hpf} (Normal) Range: 0 - 10 RBC 0-2 {/hpf} (Normal) Range: 0 - 2 WBC 0-5 {/hpf} (Normal) Range: 0 - 5 66-Usy-904376:11 URINE MADAY CULTURE-FARIBA COL Comments: PATIENT NOT FASTINGPERFORMED BY: [employer] [facility] [id number] Information: SRC:UC COUNT (72937) Antimicrobial MIHEAD (Normal) Comments: S = Susceptible; [...] mL (Abnormal) Urine Final report Culture,Comprehensive (Abnormal) 21-Fnb-269643:07 Urinalysis, Office (95221) UA - LEUKOCYTE ESTERASE Small (Normal) UA - NITRITE Negative (Normal) URINE UROBILINGN FARIBA TIMED Normal mg/dL (Normal) UA - PROTEIN Negative mg/dL (Normal) UA - PH 6 (Abnormal) UA - BLOOD Negative (Normal) UA - SPECIFIC GRAVITY 1.015 (Normal) UA - KETONES Negative mg/dL (Normal) UA - BILIRUBIN Negative (Normal) UA - GLUCOSE Negative (Normal) 06-Loo-135227:16 URINE MADAY CULTURE-IDENTIFICATN Comments: PERFORMED BY: [facility] [id number] Information: SRC:UR (68555) Antimicrobial MIHEAD (Normal) Comments: S = Susceptible; [...] mL (Abnormal) Urine Final report Culture,Comprehensive (Abnormal) 47-Owm-591392:00 Urinalysis, Office (27516) UA - LEUKOCYTE ESTERASE Large (Normal) UA - NITRITE Positive (Normal) URINE UROBILINGN FARIBA TIMED 2 mg/dL (Normal) UA - PROTEIN Negative mg/dL (Normal) UA - PH 5.0 (Normal) UA - BLOOD Hemolyzed Small (Normal) UA - SPECIFIC GRAVITY 1.015 (Normal) UA - KETONES Negative mg/dL (Normal) UA - BILIRUBIN Negative (Normal) UA - GLUCOSE Negative (Normal) 02-Cmg-937901:12 Rapid Flu (81039 x 2) Influenza A Ag Positive A (Normal) Comments: had flu shot 68-Jgn-730704:15 CALCIFIDIOL (51807) VIT D 25 Comments: PATIENT WAS FASTINGPERFORMED BY: [employer] [facility] [id number] Vitamin D, 25-Hydroxy 45.6 ng/mL (Normal) Range: 30.0-100.0 Comments: Vitamin D deficiency has been defined by the [place] ofMedicine and an Endocrine Society practice guideline as alevel of serum 25-OH vitamin D less than 20 ng/mL (1,2).The Endocrine Society went on to further define vitamin Dinsufficiency as a level between 21 and 29 ng/mL (2).1. IOM ([place] of Medicine). 2010. Dietary reference intakes for calcium and D. [place]: The National Academies Press.2. Dung MF, Kne MCFARLAND, Diego ELMORE, et al. Evaluation, treatment, and prevention of vitamin D deficiency: an Endocrine Society clinical practice guideline. JCEM. 2010; 96(7):1911-30. 56-Ygb-747742:15 TSH (81918) Comments: PATIENT WAS FASTINGPERFORMED BY: [employer] [id number] TSH 4.170 {uIU/mL} (Normal) Range: 0.450-4.500 96-Nbh-431708:15 URINALYSIS, W/ MICRO (34297) Comments: PATIENT WAS FASTINGPERFORMED BY: [facility] [id number] Microscopic Examination See below: (Normal) Comments: Microscopic was indicated and was performed. Microscopic Examination MICRON (Normal) Comments: Microscopic follows if indicated. Nitrite, Urine Negative (Normal) Urobilinogen,Semi-Qn 0.2 mg/dL (Normal) Range: 0.2-1.0 Bilirubin Negative (Normal) Occult Blood Negative (Normal) Ketones Negative (Normal) Glucose Negative (Normal) Protein Negative (Normal) WBC Esterase Negative (Normal) Appearance Clear (Normal) Urine-Color Yellow (Normal) pH 7.0 (Normal) Range: 5.0-7.5 Specific Dieterich 1.020 (Normal) Range: 1.005-1.030 09-Uyl-001569:15 MICROALBUMIN: CREATININE RATIO Comments: PATIENT WAS FASTINGPERFORMED BY: [place] [id number] [facility] [id number] (59881) AND (87651) Alb/Creat Ratio 17.8 {mg/g_creat} (Normal) Range: 0.0-30.0 Albumin, Urine 25.9 ug/mL (Normal) Creatinine, Urine 145.6 mg/dL (Normal) 26-Ogx-386752:15 METABOLIC PANEL, COMPREHENSIVE Comments: PATIENT WAS FASTINGPERFORMED BY: [place] [id number] [facility] [id number] (03263) ALT (SGPT) 15 [iU]/L (Normal) Range: 0-32 [...] 8-27 Glucose 83 mg/dL (Normal) Range: 65-99 94-Qyj-636788:15 LIPID PANEL (44815) Comments: PATIENT WAS FASTINGPERFORMED BY: [employer] [facility] [id number] LDL/HDL Ratio 1.3 {ratio} (Normal) Range: 0.0-3.2 Comments: LDL/HDL Ratio Men Women 1/2 Avg.Risk 1.0 1.5 Av g.Risk 3.6 3.2 2X Avg.Risk 6.2 5.0 3X Avg.Risk 8.0 6.1 LDL Cholesterol Calc 94 mg/dL (Normal) Range: 0-99 VLDL Cholesterol Gabriel 17 mg/dL (Normal) Range: 5-40 HDL Cholesterol 72 mg/dL (Normal) Triglycerides 86 mg/dL (Normal) Range: 0-149 Cholesterol, Total 183 mg/dL (Normal) Range: 100-199 70-Eza-164402:15 CBC W/AUTO DIFF WBC (31073) Comments: PATIENT WAS FASTINGPERFORMED BY: [employer] [facility] [id number] Immature Grans (Abs) 0.0 {x10E3/uL} (Normal) Range: [...] 3.77-5.28 WBC 6.8 {x10E3/uL} (Normal) Range: 3.4-10.8 08-Tnv-26058:35 URINE MADAY CULTURE-IDENTIFICATN Comments: PATIENT NOT FASTINGPERFORMED BY: [employer] Gpjwkg6621 [facility] [id number] Information: SRC:JUDI (29661) Antimicrobial MIHEAD (Normal) Comments: S = Susceptible; [...] . (Abnormal) Urine Final report Culture,Comprehensive (Abnormal) 70-Ajh-930640:51 Urinalysis, Office (00557) UA - LEUKOCYTE ESTERASE Moderate (Normal) UA [...] Microscopic Examination Comments: PATIENT WAS FASTINGPERFORMED BY: [employer] [facility] [id number] Bacteria None seen (Normal) Mucus Threads Present (Normal) Cast Type Hyaline casts (Normal) Casts Present {/lpf} (Abnormal) Epithelial Cells (non renal) 0-10 {/hpf} (Normal) Range: 0 - 10 RBC None seen {/hpf} (Normal) Range: 0 - 2 WBC 0-5 {/hpf} (Normal) Range: 0 - 5 :38 TSH (39938) Comments: PATIENT WAS FASTINGPERFORMED BY: [employer] [facility] [id number] TSH 2.710 {uIU/mL} (Normal) Range: 0.450-4.500 :38 T4, FREE (THYROXINE) (78655) Comments: PATIENT WAS FASTINGPERFORMED BY: [employer] Wocdfm4089 [facility] [id number] T4,Free(Direct) 1.21 ng/dL (Normal) Range: 0.82-1.77 :38 T3, FREE (TRIDOTHYRONINE) (76838) Comments: PATIENT WAS FASTINGPERFORMED BY: [facility] Nclxvi8276 [facility] [id number] Triiodothyronine,Free,Serum 2.8 pg/mL (Normal) Range: 2.0-4.4 :38 URINALYSIS, W/ MICRO (29308) Comments: PATIENT WAS FASTINGPERFORMED BY: [employer] Mnelbs3644 [facility] [id number] Microscopic Examination See below: (Normal) Comments: Microscopic was indicated and was performed. Microscopic Examination MICRON (Normal) Comments: Microscopic follows if indicated. Nitrite, Urine Negative (Normal) Urobilinogen,Semi-Qn 0.2 mg/dL (Normal) Range: 0.2-1.0 Bilirubin Negative (Normal) Occult Blood Negative (Normal) Ketones Negative (Normal) Glucose Negative (Normal) Protein Negative (Normal) WBC Esterase Negative (Normal) Appearance Clear (Normal) Urine-Color Yellow (Normal) pH 7.0 (Normal) Range: 5.0-7.5 Specific Dieterich 1.017 (Normal) Range: 1.005-1.030 :38 MICROALBUMIN: CREATININE RATIO Comments: PATIENT WAS FASTINGPERFORMED BY: [employer] Xeozxp2984 [facility] [id number] (73502) AND (34433) Microalb/Creat Ratio 5.3 {mg/g_creat} (Normal) Range: 0.0-30.0 Microalbumin, Urine 4.6 ug/mL (Normal) Creatinine, Urine 87.1 mg/dL (Normal) :38 METABOLIC PANEL, COMPREHENSIVE Comments: PATIENT WAS FASTINGPERFORMED BY: Text[employer]6370 EvtronFormerly [facility] [id number] (15457) ALT (SGPT) 14 [iU]/L (Normal) Range: 0-32 [...] Range: 65-99 :38 CBC W/AUTO DIFF WBC (28171) Comments: PATIENT WAS FASTINGPERFORMED BY: [facility] Ldzife8268 [facility] [id number] Immature Grans (Abs) 0.0 {x10E3/uL} (Normal) Range: [...] {x10E3/uL} (Normal) Range: 3.4-10.8 :38 LIPID PANEL (17468) Comments: PATIENT WAS FASTINGPERFORMED BY: 10X TechnologiesNorthern Navajo Medical CenterFybivf8907 [facility] [id number] LDL/HDL Ratio 1.4 {ratio_units} (Normal) Range: 0.0-3.2 [...] 187 mg/dL (Normal) Range: 100-199 :38 CALCIFIDIOL (74165) VIT D 25 Comments: PATIENT WAS FASTINGPERFORMED BY: CouchCommerceFormerly [facility]6370 [facility] [id number] Vitamin D, 25-Hydroxy 49.1 ng/mL (Normal) Range: 30.0-100.0 Comments: Vitamin D deficiency has been defined by the [place] ofMedicine and an Endocrine Society practice guideline as alevel of serum 25-OH vitamin D less than 20 ng/mL (1,2).The Endocrine Society went on to further define vitamin Dinsufficiency as a level between 21 and 29 ng/mL (2).1. IOM ([place] of Medicine). 2010. Dietary reference intakes for calcium and D. [place]: The National Academies Press.2. Dung MF, Ken NC, Js-Chad ELMORE, et al. Evaluation, treatment, and prevention of vitamin D deficiency: an Endocrine Society clinical practice guideline. JCEM. 2010; 96(7):1911-30. :11 URINE MADAY CULTURE-IDENTIFICATN Comments: PATIENT NOT FASTINGPERFORMED BY: [facility]6370 [facility] [id number] Information: SRC:UC (40631) Result 1 MUG (Normal) Comments: Mixed urogenital flora25,000-50,000 colony forming units per mL Urine Final report (Normal) Culture,Comprehensive :26 Urinalysis, Office () UA - LEUKOCYTE ESTERASE Small (Normal) UA - NITRITE Negative (Normal) URINE UROBILINGN FARIBA TIMED Normal mg/dL (Normal) UA - PROTEIN Negative mg/dL (Normal) UA - PH 7 (Normal) UA - BLOOD Negative (Normal) UA - SPECIFIC GRAVITY 1.025 (Normal) UA - KETONES Negative mg/dL (Normal) UA - BILIRUBIN Negative (Normal) UA - GLUCOSE Negative (Normal) :24 Fecal Occult Blood , Office (64136) Fecal Occult Blood , Office (Inhouse) negative (Normal) :54 Fecal Occult Blood , Office (14623) Fecal Occult Blood , Office (Inhouse) positive (Normal) :24 Angiotensin Convert Enzyme Comments: [facility] (refer to report for specific site)refer to report for address and phone number [phone] U/L (Normal) Range: 14-82 Comments: Performed at: [address] [id number] Director: John Paul Burrows PhD, Phone: [phone] 06-Rgi-583894:24 Erythrocyte Sed Rate Comments: [facility] Vlvahuhkba5609 [place], [place], [id number] SED RATE 9 mm/h (Normal) Range: 0-30 77-Vad-50771:06 Microscopic Examination Comments: PATIENT WAS FASTINGPERFORMED BY: [employer] [id number] Bacteria Moderate (Abnormal) Mucus Threads Present (Normal) Epithelial Cells (non renal) 0-10 {/hpf} (Normal) Range: 0 - 10 RBC 0-2 {/hpf} (Normal) Range: 0 - 2 WBC 11-30 {/hpf} (Abnormal) Range: 0 - 5 :06 CALCIFEDIOL (84598) Comments: PATIENT WAS FASTINGPERFORMED BY: 10X TechnologiesSelect at BellevilleStjpsh[address] [place] [address] [id number] Vitamin D, 25-Hydroxy 48.3 ng/mL (Normal) Range: 30.0-100.0 Comments: Vitamin D deficiency has been defined by the [place] ofMedicine and an Endocrine Society practice guideline as alevel of serum 25-OH vitamin D less than 20 ng/mL (1,2).The Endocrine Society went on to further define vitamin Dinsufficiency as a level between 21 and 29 ng/mL (2).1. IOM ([place] of Medicine). 2010. Dietary reference intakes for calcium and D. [place]: The National AcademBoardVantage Press.2. Dung MF, Ken MCFARLAND, Diego ELMORE, et al. Evaluation, treatment, and prevention of vitamin D deficiency: an Endocrine Society clinical practice guideline. JCEM. 2010; 96(7):1911-30. :06 TSH (THYROID STIMULATING Comments: PATIENT WAS FASTINGPERFORMED BY: Rizzoma70 CloudwearFlag[facility] Hospital [id number] HORMONE) (18594) TSH 3.690 {uIU/mL} (Normal) Range: 0.450-4.500 :06 URINALYSIS (32694) Comments: PATIENT WAS FASTINGPERFORMED BY: TextRecruit6370 [facility]At[facility] [id number] Microscopic Examination See below: (Normal) Comments: Microscopic was indicated and was performed. Nitrite, Urine Negative (Normal) Urobilinogen,Semi-Qn 0.2 mg/dL (Normal) Range: 0.2-1.0 Bilirubin Negative (Normal) Occult Blood Negative (Normal) Ketones Negative (Normal) Glucose Negative (Normal) Protein Negative (Normal) WBC Esterase 3+ (Abnormal) Appearance Clear (Normal) Urine-Color Yellow (Normal) pH 7.5 (Normal) Range: 5.0-7.5 Specific Dieterich 1.017 (Normal) Range: 1.005-1.030 :06 Lipid Panel (26133) Comments: PATIENT WAS FASTINGPERFORMED BY: Yamsafer LabBolsa de Mulher Grouprp Huplzg6322 [facility] [id number] LDL/HDL Ratio 1.5 {ratio_units} (Normal) Range: 0.0-3.2 [...] Cholesterol, Total 190 mg/dL (Normal) Range: 100-199 40-Mkl-69587:06 Metabolic Panel, Comprehensive Comments: PATIENT WAS FASTINGPERFORMED BY: LabCoSelect at BellevilleSnkafo7802 [facility] [id number] (57344) ALT (SGPT) 13 [iU]/L (Normal) Range: 0-32 [...] MANUAL DIFF Comments: PATIENT WAS FASTINGPERFORMED BY: [employer] [facility] [id number] Information: [id number] (01078) Immature Grans (Abs) 0.0 {x10E3/uL} (Normal) Range: [...] CREATININE RATIO Comments: PATIENT WAS FASTINGPERFORMED BY: Digital Music IndiaCentral Carolina Hospitalin [place] [id number] (92060) AND (39250) Microalb/Creat Ratio 4.3 {mg/g_creat} (Normal) Range: 0.0-30.0 Microalbumin, Urine 3.4 ug/mL (Normal) Creatinine, Urine 78.2 mg/dL (Normal) 1-Gyd-889799:22 ANGTENSIN 1-CONVRT ENZYM Comments: PATIENT NOT FASTINGPERFORMED BY: [facility]6370 [facility] [id number] Information: [id number] (01356) ART 61 U/L (Normal) Range: 14-82 9-Bge-873824:22 SED RATE ERYTHROCYTE (14851) Comments: PATIENT NOT FASTINGPERFORMED BY: [facility]6370 [facility] [id number] Sedimentation Rate-Westergren 7 mm/h (Normal) Range: 0-40 7-Eov-421543:22 C-REACTIVE PROTEIN (70010) Comments: PATIENT NOT FASTINGPERFORMED BY: [facility]6370 [facility] [id number]; non- emergent till apt C-Reactive Protein, Quant 2.2 mg/L (Normal) Range: 0.0-4.9 04-Nmy-941095:13 Rapid Flu (04617 x 2) Influenza A Ag negative a/b (Normal) 6-Cej-857498:37 URINE MADAY CULTURE (FARIBA Comments: PATIENT NOT FASTINGPERFORMED BY: [place] 2391070 [facility] [id number] Information: SRC:[facility] [id number] COL COUNT) (06621) Result 1 MUG (Normal) Comments: Mixed urogenital flora2,000 Colonies/mL Urine Culture,Comprehensive Final report (Normal) 2-Mmj-084516:15 Urinalysis, Office (13860) UA - LEUKOCYTE ESTERASE Negative (Normal) UA - NITRITE Negative (Normal) URINE UROBILINGN FARIBA TIMED Normal mg/dL (Normal) UA - PROTEIN Negative mg/dL (Normal) UA - PH 6 (Abnormal) UA - BLOOD Negative (Normal) UA - SPECIFIC GRAVITY 1.020 (Normal) UA - KETONES Negative mg/dL (Normal) UA - BILIRUBIN Negative (Normal) UA - GLUCOSE Negative (Normal) :42 Comprehensive Metabolic Profil Comments: [facility] [address] [place], [place], [id number] GAP 4 (Abnormal) Range: 5-15 CO2 30.0 [...] 7-18 GLU 93 mg/dL (Normal) Range: 70-110 :42 Lipid Profile Comments: [facility] Tpcssigcfx[address] [place], [place], [id number] ; non-emergent till apt VLDL 35 mg/dL [...] 200-240 mg/dL Borderline >240 mg/dL High Risk 32-Fco-48220:42 Vitamin D,25 Hydroxy Comments: [facility] [address] [place], [address] Vitamin D 25-OH 31.7 ng/mL (Normal) Comments: Vitamin D 25(OH) Status Range Deficiency <20 ng/mL (50nmol/L) Insuffciency 20 - 30 ng/mL (50 - 75 nmol/L) Sufficiency 30 - 100 ng/mL (75 - 250 nmol/L) Toxicity >100 ng/mL (>250 nmol/L) 09-Mra-137314:26 Pap IG (Image Comments: Source.............Cervical;EndocervicalNo. of containers..01 CYTYC Thin Prep VialPATIENT NOT FASTINGPERFORMED BY: =G [facility] [address] [id number] BY: WB L Guided) [facility] [address] [id number] Note: PAPSMR (Normal) Comments: The Pap smear [...] ; Screening for malignant neoplasm of the cervixKelly Kraft, Forklift Wheel Loader (ASCP) 64-Gaq-724496:26 Thin Prep Pap Comments: Source.............Cervical;EndocervicalNo. of containers..01 CYTYC Thin Prep VialPATIENT NOT FASTINGPERFORMED BY: =G [facility] Vqltrgntgp728 [facility] [id number] BY: VICKI Beal (84675) abCmargret Zdadpnbvnj445 [facility] [id number] Information: [id number] Age Gdln ACOG Testing AGE4 (Normal) Comments: <21 or >65 or no age provided 00-Tef-93310:08 Rapid Strep Test, Office (95868) Comments: neg Rapid Strep Test, Office Negative (Normal) 95-Uvg-75288:26 Microscopic Examination Comments: PATIENT WAS FASTINGPERFORMED BY: [facility] Majdga4660 [address] AGlobal TechFormerly [facility] [id number] Bacteria None seen (Normal) Mucus Threads Present (Normal) Epithelial Cells (non renal) 0-10 {/hpf} (Normal) Range: 0 - 10 RBC 0-2 {/hpf} (Normal) Range: 0 - 2 WBC 0-5 {/hpf} (Normal) Range: 0 - 5 46-Ipf-274532:02 URINE MADAY CULTURE-FARIBA COL Comments: PERFORMED BY: [facility] Ufdtyf9491 EvtronFormerly [facility] [id number] COUNT (83977) Result 1 MUG (Normal) Comments: Mixed urogenital flora10,000-25,000 colony forming units per mL Urine Final report (Normal) Culture,Comprehensive 88-Fpw-170531:00 Urinalysis, Office (03599) UA - LEUKOCYTE ESTERASE Negative (Normal) UA - NITRITE Negative (Normal) URINE UROBILINGN FARIBA TIMED Normal mg/dL (Normal) UA - PROTEIN Negative mg/dL (Normal) UA - PH 7.0 (Normal) UA - BLOOD non-hemolyzed trace (Normal) UA - SPECIFIC GRAVITY 1.010 (Normal) UA - KETONES Negative mg/dL (Normal) UA - BILIRUBIN Negative (Normal) UA - GLUCOSE Negative (Normal) 78-Oye-43953:26 METABOLIC PANEL, Comments: PATIENT WAS FASTINGPERFORMED BY: LabCoSelect at BellevilleZqgmfx9348 [facility] [id number] Information: [id number] [facility] (68996) ALT (SGPT) 27 [iU]/L (Normal) Range: 0-32 [...] Glucose, Serum 88 mg/dL (Normal) Range: 65-99 20-Ohb-02227:26 URINALYSIS, W/ MICRO (14348) Comments: PATIENT WAS FASTINGPERFORMED BY: LabCoSelect at BellevilleKmifks3551 [facility] [id number] Microscopic Examination See below: (Normal) Comments: Microscopic was indicated and was performed. Microscopic Examination MICRON (Normal) Comments: Microscopic follows if indicated. Nitrite, Urine Negative (Normal) Urobilinogen,Semi-Qn 0.2 mg/dL (Normal) Range: 0.0-1.9 Bilirubin Negative (Normal) Occult Blood Negative (Normal) Ketones Negative (Normal) Glucose Negative (Normal) Protein Negative (Normal) WBC Esterase Negative (Normal) Appearance Clear (Normal) Urine-Color Yellow (Normal) pH 7.0 (Normal) Range: 5.0-7.5 Specific Dieterich 1.023 (Normal) Range: 1.005-1.030 :26 TSH (52245) Comments: PATIENT WAS FASTINGPERFORMED BY: Rizzoma70 [facility] [place] [id number] TSH 3.170 {uIU/mL} (Normal) Range: 0.450-4.500 :26 Vitamin D Hydroxy (21576) Comments: PATIENT WAS FASTINGPERFORMED BY: [employer]6370 [facility] [id number] Vitamin D, 25-Hydroxy 34.3 ng/mL (Normal) Range: 30.0-100.0 Comments: Vitamin D deficiency has been defined by the [place] ofMedicine and an Endocrine Society practice guideline as alevel of serum 25-OH vitamin D less than 20 ng/mL (1,2).The Endocrine Society went on to further define vitamin Dinsufficiency as a level between 21 and 29 ng/mL (2).1. IOM ([place] of Medicine). 2010. Dietary reference intakes for calcium and D. [place]: The National Academies Press.2. Dung MF, Ken NC, Diego ELMORE, et al. Evaluation, treatment, and prevention of vitamin D deficiency: an Endocrine Society clinical practice guideline. JCEM. 2010; 96(7):1911-30. :26 LIPID PANEL (18669) Comments: PATIENT WAS FASTINGPERFORMED BY: [employer] Rmagps9612 [facility] [id number]; will review at 04/11 appt LDL/HDL Ratio [...] (Abnormal) Range: 100-199 :31 Vitamin D Hydroxy (31946) Comments: PATIENT WAS FASTINGPERFORMED BY: Digital Music IndiaFormerly [facility] [id number] Vitamin D, 25-Hydroxy 35.2 ng/mL (Normal) Range: 30.0-100.0 Comments: Vitamin D deficiency has been defined by the [place] ofMedicine and an Endocrine Society practice guideline as alevel of serum 25-OH vitamin D less than 20 ng/mL (1,2).The Endocrine Society went on to further define vitamin Dinsufficiency as a level between 21 and 29 ng/mL (2).1. IOM ([place] of Medicine). 2010. Dietary reference intakes for calcium and D. [place]: The National Academies Press.2. Dung MF, Ken NC, Diego ELMORE, et al. Evaluation, treatment, and prevention of vitamin D deficiency: an Endocrine Society clinical practice guideline. JCEM. 2010; 96(7):1911-30. :31 TSH (01306) Comments: PATIENT WAS FASTINGPERFORMED BY: [employer] Xwloaq6748 [facility] [id number] TSH 3.100 {uIU/mL} (Normal) Range: 0.450-4.500 :31 MICROALBUMIN: CREATININE RATIO Comments: PATIENT WAS FASTINGPERFORMED BY: [employer] Ybltni8792 [facility] [id number] (53737) AND (06565) Microalb/Creat Ratio 2.0 {mg/g_creat} (Normal) Range: 0.0-30.0 Microalbumin, Urine 3.8 ug/mL (Normal) Range: 0.0-17.0 Creatinine, Urine 189.7 mg/dL (Normal) Range: 15.0-278.0 :31 CBC WITH MANUAL DIFF Comments: PATIENT WAS FASTINGPERFORMED BY: JAMES LabCoSelect at BellevilleRdghqm9719 [address] [place] [id number] Information: [id number] (13999) Immature Grans (Abs) 0.0 {x10E3/uL} (Normal) Range: [...] PANEL, COMPREHENSIVE Comments: PATIENT WAS FASTINGPERFORMED BY: JAMES LabCoSelect at BellevilleImcifv7838 [facility] [id number] (90993) ALT (SGPT) 11 [iU]/L (Normal) Range: 0-32 [...] Glucose, Serum 96 mg/dL (Normal) Range: 65-99 20-Crh-97041:31 LIPID PANEL (95661) Comments: PATIENT WAS FASTINGPERFORMED BY: LabCoSelect at BellevilleOhtigp0560 [facility] [id number] LDL/HDL Ratio 1.4 {ratio_units} (Normal) Range: 0.0-3.2 LDL Cholesterol Calc 89 mg/dL (Normal) Range: 0-99 VLDL Cholesterol Gabriel 30 mg/dL (Normal) Range: 5-40 HDL Cholesterol 62 mg/dL (Normal) Comments: According to ATP-III Guidelines, HDL-C >59 mg/dL is considered anegative risk factor for CHD. Triglycerides 149 mg/dL (Normal) Range: 0-149 Cholesterol, Total 181 mg/dL (Normal) Range: 100-199 79-Mxr-324851:14 URINE MADAY CULTURE (FARIBA Comments: PATIENT NOT FASTINGPERFORMED BY: [employer] Jsofsq0613 [facility] [id number] Information: SRC: [id number] COL COUNT) (46531) Result 1 MUG (Normal) Comments: Mixed urogenital cfmes348 Colonies/mL Urine Culture,Comprehensive Final report (Normal) 83-Ojd-050175:18 URINE MADAY CULTURE-IDENTIFICATN Comments: PATIENT NOT FASTINGPERFORMED BY: [employer]ouchCom[employer]Corp Miwoux4923 [facility] [id number] Information: [id number] (32976) Antimicrobial MIHEAD (Normal) Comments: S = Susceptible; [...] mL (Abnormal) Urine Final report Culture,Comprehensive (Abnormal) 31-Uca-872630:09 Urinalysis, Office (12731) UA - LEUKOCYTE ESTERASE Moderate (Normal) UA - NITRITE Negative (Normal) URINE UROBILINGN FARIBA TIMED Normal mg/dL (Normal) UA - PROTEIN Negative mg/dL (Normal) UA - PH 5.0 (Normal) UA - BLOOD Hemolyzed Large (Normal) UA - SPECIFIC GRAVITY 1.020 (Normal) UA - KETONES Negative mg/dL (Normal) UA - BILIRUBIN Negative (Normal) UA - GLUCOSE Negative (Normal) 90-Mwh-083836:37 URINE MADAY CULTURE-IDENTIFICATN Comments: PATIENT NOT FASTINGPERFORMED BY: [facility] Kqqpim6622 [facility] [id number] Information: SRC: URINE [id number] (46684) Antimicrobial MIHEAD (Normal) Comments: S = Susceptible; [...] mL (Normal) Urine Final report Culture,Comprehensive (Normal) 73-Acx-943622:10 Urinalysis, Office (65335) UA - BILIRUBIN Negative (Normal) UA - BLOOD Hemolyzed Moderate (Normal) UA - GLUCOSE Negative (Normal) UA - KETONES Negative mg/dL (Normal) UA - LEUKOCYTE ESTERASE Large (Normal) UA - NITRITE Negative (Normal) UA - PH 6.0 (Normal) UA - PROTEIN Negative mg/dL (Normal) UA - SPECIFIC GRAVITY 1.025 (Normal) URINE UROBILINGN FARIBA TIMED Normal mg/dL (Normal) 84-Dac-908409:14 HPV automatic Comments: Source.............Cervical;EndocervicalNo. of containers..01 CYTYC Thin Prep VialPATIENT NOT FASTINGPERFORMED BY: WB LabCo[address] [id number] BY: =G L (38183) [facility] Ncoioyjeiu274 [facility] W [id number] Information: [id number] HPV, high-risk Negative Comments: This high-risk HPV [...] are present.V72.31 ; Routine gynecological examinationMichael Carmona Forklift Wheel Loader (ASCP) 28-Iag-264423:45 FECAL OCCULT HGB ASSAY- tubes sent home (75631) FECAL OCCULT HGB ASSAY, QUAL, 1-3 SIMULTANEOU negative (Normal) 04-Gsd-233192:37 CBC WITH MANUAL DIFF Comments: PATIENT WAS FASTINGPERFORMED BY: LabFormerly [facility]6370 [facility] [id number] Information: [id number] (86159) Immature Grans (Abs) 0.0 {x10E3/uL} (Normal) Range: [...] 3.77-5.28 WBC 7.5 {x10E3/uL} (Normal) Range: 3.4-10.8 72-Lnv-023998:37 METABOLIC PANEL, COMPREHENSIVE Comments: PATIENT WAS FASTINGPERFORMED BY: LabCoSelect at BellevilleZszhzx3421 [facility] [id number] (71375) ALT (SGPT) 21 [iU]/L (Normal) Range: 0-32 [...] (Normal) Range: 65-99 :37 Vitamin D Hydroxy (54259) Comments: PATIENT WAS FASTINGPERFORMED BY: CouchCommerceFormerly [facility]6370 [facility] [id number] Vitamin D, 25-Hydroxy 35.3 ng/mL (Normal) Range: 30.0-100.0 Comments: Vitamin D deficiency has been defined by the [place] ofMedicine and an Endocrine Society practice guideline as alevel of serum 25-OH vitamin D less than 20 ng/mL (1,2).The Endocrine Society went on to further define vitamin Dinsufficiency as a level between 21 and 29 ng/mL (2).1. IOM ([place] of Medicine). 2010. Dietary reference intakes for calcium and D. [place]: The National Academies Press.2. Dung MF, Ken MCFARLAND, Diego ELMORE, et al. Evaluation, treatment, and prevention of vitamin D deficiency: an Endocrine Society clinical practice guideline. JCEM. 2010; 96(7):1911-30. 15-Lnh-004142:37 TSH (27659) Comments: PATIENT WAS FASTINGPERFORMED BY: LabCoSelect at BellevilleHusqjw5078 [facility] [id number] TSH 2.590 {uIU/mL} (Normal) Range: 0.450-4.500 :37 LIPID PANEL (03730) Comments: PATIENT WAS FASTINGPERFORMED BY: LabCoSelect at BellevilleOiceno6559 [facility] [id number] LDL/HDL Ratio 2.0 {ratio_units} (Normal) Range: 0.0-3.2 [...] Durant M.D.April 21, 2013 at 3:29:39 PM [id number] Signed RU/RU If you are the referring physician and would like to consult with theradiologist who provided this interpretation, please contact Tricia Camarena at [phone]. If this radiologist is unavailable, youwillbe directed to another radiologist to assist. If you are a patient with a question regarding this report, pleasecontactyour referring physician direct ly. Professional Interpretation Provided By: [employer], Phone , These documents contain legally protected [...] on 04/21/13 1529 by Frank DurantTranscribed on 153 by ITS IMPORTSign by Frank Durant on 04/21/13 153 Sign by: Frank Durant :18 CBCMD ANC [...] CHOL 194 mg/dL (Normal) Comments: <200 mg/dL Cyakakuve261-876 mg/dL Borderline>240 mg/dL High Risk :18 TSH 2.02 {uIU/mL} (Normal) Range: 0.358-3.74 :18 VITD 56.0 ng/mL (Normal) Comments: Vitamin D 25(OH) Status RangeDeficiency <20 ng/mL (50nmol/L)Insufficiency 20 - 30 ng/mL (50 - 75 nmol/L)Sufficiency 30 - 100 ng/mL (75 - 250 nm ol/L)Toxicity >100 ng/mL (250 nmol/L)Effective 201209-Sep-201290-Nem-845728:39 Aerobic Bacterial Culture Comments: PERFORMED BY: JAMES LabCoSelect at BellevilleTzvnub6373 [facility] CenterEphraimpaulina [place] [id number] Information: SRC:CH RIGHT CHEST Result 1 NG36 [...] D deficiency has been defined by the [place] ofMedicine and an Endocrine Society practice guideline as alevel of serum 25-OH vitamin D less than 20 ng/mL (1,2).The Endocrine Society went on to further define vitamin Dinsufficiency as a level between 21 and 29 ng/mL (2).1. IOM ([place] of Medicine). 2010. Dietary reference intakes for calcium and D. [place]: The National AcademBoardVantage Press.2. Dung MF, Ken MCFARLAND, Diego ELMORE, et al. Evaluation, treatment, and prevention of vitamin D deficiency: an Endocrine Society clinical practice guideline. JCEM. 2010; 96(7): 1911-30.Performed at: [address] Director: Amari Barnett PhD, Phone: [phone] 0-Tuy-679629:36 BILAT SCRN DIGITAL & CAD Radiology Report [...] biopsy of a clinically suspiciousabnorma lity. Signed:Cruzito Briggs M.D.April 05, 2012 at 3:13:08 PM [id number] Signed GP/GP If you are the referring physician and would like to consult with theradiologist who provided this interpretation, please contact Tricia Butler at [phone]. If this radiologist is unavailable, youwill be directed to another radiologist to assist. If you are a patient with a questi on regarding this report, pleasecontactyour referring physician directly. Professional Interpretation Provided By: [employer], Phone , These documents contain legally prot [...] ents. Dictated on 04/05/12 1450 by Kaushal Briggs MDranscribed on 04/05/12 1518 by ITS IMPORTSign by Cruzito Briggs MD on 04/05/12 1519 Sign by: Cruzito Briggs MD 72-Scr-949260:06 HEPATOBILLIARY IMG W/PHARM INT Radiology Report See [...] Cholecystokinin (0.02 ug/kg) was administered intravenously over o46-wyvizv period. T he post CCK gallbladder ejection fraction bzffqmiexzxo59 minutes following Cholecystokinin administration was noted to [...] Bustos M.D.March 31, 2012 at 9:50:05 AM [id number] Signed RB/RB If you are the referring physician and would like to consult with theradiologist who provided this interpretati on, please contact Tricia Hood at [phone]. If this radiologist is unavailable, you will bedirected to another radiologist to assist. If you are a patient with a question regarding this report , pleasecontactyour referring physician directly. Professional Interpretation Provided By: [employer], Phone , These documents contain legally protected [...] 03/31/12 1158 Sign by: Frank Bustos DO 76-Qjn-21205:09 GALLBLADDER Comments: f/u 03/19/12 Radiology Report See [...] size of the right kidney. The right dhsodqxjabojgr22.4 cm. Normal renal cortex. The right cortex measures 1.5 cm. Thereisa 7 mm x 6 mm x 5 mm cyst in t he upper pole. There is no righthydronephrosis. IMPRESSION:Mild dilatation of the common bile duct. Signed:Cruzito Briggs M.D.March 18, 2012 at 10:37:07 AM [id number] Signed GP/G P If you are the referring physician and would like to consult with theradiologist who provided this interpretation, please contact Tricia Butler at [phone]. If this radiologist is unavai kristan, youwill be directed to another radiologist to assist. If you are a patient with a question regarding this report, pleasecontactyour referring physician directly. Professional Interpretation Provi ded By: [employer], Phone , Dictated on 03/18/12 0815 by Bill RAO,Kaushalranscribed on 03/18/12 1043 by ITS IMPORTSign by Bill ARO,Cruzito on 03/18/12 1043 Sign by: Cruzito Briggs MD 16-Mar-2012 TUYET 58 U/L (Normal) Comments: DR VIERA ORDERED TSH, CMP, LIPID, CBCMD, UAC 10:19 Range: 25-115 90-Tlu-695152:19 CBCMD Comments: DR VIERA ORDERED TSH, CMP, [...] 4.2-5.4 WBC 7.1 K/mm3 (Normal) Range: 4.4-11.0 91-Enp-687614:19 CMP Comments: DR VIERA ORDERED TSH, CMP, [...] 7-18 GLU 98 mg/dL (Normal) Range: 70-110 87-Eoi-245480:19 LIPASE 259 U/L (Normal) Comments: DR VIERA ORDERED TSH, CMP, LIPID, CBCMD, UAC Range: 70-290 53-Fhz-860070:19 LIPID Comments: DR VIERA ORDERED TSH, CMP, [...] 200-240 mg/dL Borderline >240 mg/dL High Risk 75-Nkv-861310:19 TSH 1.91 {uIU/mL} (Normal) Comments: DR VIERA ORDERED TSH, CMP, LIPID, CBCMD, UAC Range: 0.358-3.74 87-Xqi-785621:19 [facility] Comments: DR VIERA ORDERED TSH, CMP, LIPID, [...] (Normal) UCLAR CLEAR (Normal) UCOL YELLOW (Normal) 98-Pff-262919:39 Urinalysis, Office (92703) UA - BILIRUBIN Negative (Normal) UA - BLOOD Negative (Normal) UA - GLUCOSE Negative (Normal) UA - KETONES Negative mg/dL (Normal) UA - LEUKOCYTE ESTERASE Trace (Normal) UA - NITRITE Negative (Normal) UA - PH 6.0 (Normal) UA - PROTEIN Negative mg/dL (Normal) UA - SPECIFIC GRAVITY 1.015 (Normal) URINE UROBILINGN FARIBA Normal mg/dL (Normal) TIMED 83-Qfd-985568:02 CUT See Note (Normal) Comments: Normal throat bhavesh isolated. No beta-hemolyticstreptococcus isolated. 62-Swz-818707:37 Rapid Strep Test, Office (97029) Rapid Strep Test, Office Negative (Normal) :58 [...] Sign by : Shannon RAO,Marilia 27-May-2011 ART 95452 81 U/L (Abnormal) Range: 12-68 12:07 43-Sls-424919:07 XOCHILT DIR SEMI-QL Comments: appt 06/03/11 XOCHILT DIRECT 33 AU/mL (Normal) :07 ASO 6031 94.6 {IU/mL} (Normal) Range: 0.0-200.0 Comments: Performed at: [address] [id number] Director: Leana Villar MD, Phone: [phone] : C-REACTIVE PROT 16.20 mg/L (Abnormal) Range: [...] mg/dL suggests IMPAIRED HOMEOSTASIS per A.D.A. criteria. 21-Lfe-271977:07 COMPLETE UA MUCUS, URINE 0 SEEN {/hpf} [...] NEGATIVE CLARITY CLEAR (Normal) COLOR STRAW (Normal) 11-Mah-921421:07 ESR SED RATE 36 mm/h (Abnormal) Range: 0-30 08-Geg-317191:07 RHEUMATOID FAC < 10.0 {IU/mL} (Normal) 61-Kcu-618535:07 TSH 2.21 {uIU/mL} (Normal) Range: 0.358-3.74 66-Fpi-647718:20 CHEST, PA AND LATERAL Radiology Report See [...] throat bhavesh isolated. No beta-hemolyticstreptococcus isolated. 8:38 96-Cre-850733:34 PPD (31713) SKIN TEST INTRADERMAL TB negative (Normal) 93-Xxd-718620:23 LQDPAP [id number] PAPSMR Comment (Normal) Comments: The Pap smear [...] no HPV testing was performed. .Performed at: [address] [place] [id number] Director: Young Pope MD, Phone: [phone] COMM . (Normal) DIAGN Comment (Normal) Comments: NEGATIVE FOR INTRAEPITHELIAL LESION AND MALIGNANCY.CELLULAR CHANGES ASSOCIATED WITH ATROPHY ARE PRESENT.THIS SPECIMEN WAS RESCREENED PART OF OUR PYROMETALLURGICAL ENGINEER PROGRAM.Satisfactory for evaluation. Endocervical component may not bedistinguished in cases of atrophy.Shayla Wright, Forklift Wheel Loader (ASCP)Zahraa Orr, Supervisory Forklift Wheel Loader (ASCP)This liquid based ThinPrep(R) pap test was screened withthe use of an image guided system. 76-Uag-237751:41 BILAT SCRN DIGITAL & CAD Radiology Report [...] clinically suspiciousabnormality. Dictated on 02/26/11 1101 by Paulo Briggs MDrieleTranscribed on 02/26/11 1332 by ITS IMPORTSign by Cruzito Briggs MD on 02/26/11 1333 Sign by: Cruzito Briggs MD 16-Bst-418204:37 DEXA BONE DENSITY STUDY (HP) Radiology Report [...] (-0.1) / Z-score (0.5) On the lateral recreational programs director film, there is a grade 2 anterior [...] Foundation [email or web address] Dictated on 02/26/11 1146 by Bill RAO,PaulorieleTranscribed on 02/26/11 1338 by ITS IMPORTSign by Bill RAO,Regi messer on 02/26/11 1339 Sign by: Cruzito Briggs MD :19 CBCD,SMEAR DIFF PLT EST SeeNote [...] in size and morphology. Normal mediastinum and manosor. Normal visualized pulmonary arteries. Nor mal visualized aortic arch anddescending thoracic aorta. Normal visualized thoracic spine IMPRESSION:Normal x-ray examination of the chest. Dictated on 08/19/101648 by BATSHEVA GEORGETranscribed on 1648 by JUAN DAVID ARREAGASONSign by BATSHEVA GEORGE on 08/20/10 0821 Sign [...] CHOL 206 mg/dL (Abnormal) Comments: <200 mg/dL Ylpktfury610-037 mg/dL Borderline>240 mg/dL High Risk :26 TSH 1.24 {uIU/mL} (Normal) Range: 0.358-3.74 31-Jup-943271:19 BILAT SCRN DIGITAL & CAD Radiology Report See Note (Normal) Comments: Exam Number: [id number] DIGITAL BILATERAL MAMMOGRAM Digital oblique and craniocaudal [...] been no change since priorexamination. Routine [facility]ographic followup is suggested. IMPRESSION1. Scattered bilateral microcalcifications. There has been no changesince prior examination.2. Routine annual mammographic followup is suggested.3. Benign. BIRADS Category 2. A letter regarding the results has been sent to the patient. This interpretation was rendered by a radiologist certified under theMammography Quality Standards Act of 1992 (M QSA). The mammograms werealso examined with computer-aided detection software (Dropifi.). Reported By: BILLCRUZITO :53 CBCD,SMEAR DIFF EOS 1 % (Normal) [...] :53 TSH 1.60 {uIU/mL} (Normal) Range: 0.358-3.74 79-Ryd-606570:13 CULTURE, WOUND Comments: RIGHT CHEST WALL LESION GRAM STAIN See Note (Normal) Comments: GRAM STAIN 1+ RED CELL STROMA 2+ WHITE BLOOD CELLS NO ORGANISMS SEEN 83-Drq-66538:11 LQD PAP [id number] Comments: CYTOLOGY INFORMATION:- CLINICAL INFORMATION: POSTMENOPAUSAL- DATE LMP/MENOPAUSE: NOT GIVEN MENOPAUSE- COLLECTION VIAL: Thin Prep Vial- FILE CONVERSION OPERATOR SOURCE: CERVICAL/ENDOCERVICAL- COLLECTION TECHNIQUE: BRUSH/SPATULA ADEQ [...] no HPV testing was performed. .Performed At: [address] [id number] PAPSMR Comment (Normal) Comments: The Pap smear is a screening test designed to aid in thedetection of premalignant and malignant conditions of theuterine cervix. It is not a diagnostic procedure andshould not be used as the sole means of detecting cervicalcancer. Both false-positive and false-negative reports dooccur. . PERFORM Comment (Normal) Comments: Kimberley Borges Forklift Wheel Loader (ASCP) SIGN Comment (Normal) Comments: Wendi Elaine MD, Pathologist 8-Jsv-062309:22 BILAT SCRN DIGITAL & CAD Radiology Report See Note (Normal) Comments: Exam Number: [id number] MAMMOGRAM, BILATERAL SCREENING DIGITAL AND CAD HISTORYRoutine [...] werealso examined with computer- aided detection software ([employer], [employer].). Reported By: SEAN AMAYA M.D. 6-Sxb-570173:21 DEXA BONE DENSITY STUDY (HP) Radiology Report See Note (Normal) Comments: Exam Number: [id number] BONE DENSITOMETRY HISTORYPostmenopausal. TECHNIQUE Bone densitometry of [...] density is measured at 0.1% greater than ud2736. Digital lateral view for evaluation of vertebral deformityonly demonstrates no obvious compression fractures. The T-value ofthe left femoral neck is -0.8 which is normal. The T-value of thetotal hip is -0.3 which is normal. Bone mineral density is measuredat 5% less than in 2004. IMPRESSIONBone d ensitometry of the lumbar spine and left hip is within normallimits. Reported By: SEAN AMAYA M.D. 05-Svj-91149:08 CBCD,SMEAR DIFF BAND 3 % (Normal) Range: [...] mg/dL (Normal) Range: 1.5-2.2 :08 T3, FREE 51913 2.9 pg/mL (Normal) Range: 2.3-4.2 Comments: Performed At: [address] [id number] :08 T4 FREE,DIRECT 1.0 ng/dL (Normal) Range: 0.89-1.76 :08 TSH 1.40 {uIU/mL} (Normal) Range: 0.34-4.82 33-Yep-266266:59 LOWER EXT/JT ONLY (ROUTINE) Radiology Report See Note (Normal) Comments: Exam Number: [id number] MRI OF THE RIGHT KNEE STATEMENTRight knee [...] medial meniscus. Reported By: ABDULAZIZ HENRY M.D. 31-Pnz-413402:21 KNEE,4 OR MORE VIEWS (MT) Radiology Report See Note (Normal) Comments: Exam Number: [id number] RIGHT KNEE, 4 VIEWS REASON FOR EXAMINATIONRight [...] throat bhavesh isolated. No beta-hemolyticstreptococcus isolated. :30 53-Rpe-016282:20 Rapid Strep Test, Office (13038) Comments: neg Rapid Strep Test, Office Negative [...] SED RATE 14 mm/h (Normal) Range: 0-30 51-Yts-892047:52 ABDOMEN WITH CONTRAST Radiology Report See Note (Normal) Comments: Exam Number: [id number] COMPUTED TOMOGRAPHY OF THE ABDOMEN WITH ORAL AND IV CONTRAST INDICATIONA 57-year-old female with epigastric pain, nausea. COMPARISONNone. TECHNIQUEContiguous transaxial images wer e obtained from the lung bases to thelevel of S1 following the uneventful administration of 100 cc Mywgwg262 intravenously. Oral contrast was also administered. REPORTLimited [...] 47-70 WBC 10.3 K/mm3 (Normal) Range: 4.4-11.0 88-Obr-65177:00 COMP METABOLIC Comments: CALL RESULTS TO DR [...] mm/h (Abnormal) Range: 0-30 :13 Urinalysis, Office (37906) UA - LEUKOCYTE ESTERASE Negative (Normal) UA [...] :57 TSH 0.83 {uIU/mL} (Normal) Range: 0.34-4.82 01-Gjc-995758:13 Urinalysis, Office (67946) Comments: done-jjp UA - BILIRUBIN Negative (Normal) UA - BLOOD Negative (Normal) UA - GLUCOSE Negative (Normal) UA - KETONES Negative mg/dL (Normal) UA - LEUKOCYTE ESTERASE Negative (Normal) UA - NITRITE Negative (Normal) UA - PH 5.0 (Normal) UA - PROTEIN Negative mg/dL (Normal) UA - SPECIFIC GRAVITY 1.005 (Normal) URINE UROBILINGN FARIBA TIMED Normal mg/dL (Normal) :44 Urinalysis, Office (43405) Comments: done UA - BLOOD Hemolyzed Large (Normal) UA - LEUKOCYTE ESTERASE Moderate (Normal) UA - NITRITE Negative (Normal) UA - PH 6.5 (Normal) UA - PROTEIN Negative mg/dL (Normal) UA - SPECIFIC GRAVITY 1.005 (Normal) URINE UROBILINGN FARIBA TIMED Normal mg/dL (Normal) UA - BILIRUBIN Negative (Normal) UA - GLUCOSE Negative (Normal) UA - KETONES Negative mg/dL (Normal) 5-Twn-858211:30 CULTURE, URINE URINE CULTURE See Note {CFU/mL} [...] of Care Name Dates Details Instructions BMI 29.0-29.9,adult : Follow up if no [...] neuritis or radiculitis, unspecified Planned Observations TSH (64792)Indication: Acquired hypothyroidism On: 36-Rhi-002614:45 Request T4, FREE (THYROXINE) (51114)Indication: Acquired hypothyroidism On: :45 Request T3, FREE (TRIDOTHYRONINE) (40942)Indication: Acquired hypothyroidism On: 18-Esg-281809:45 Request URINE MADAY CULTURE-IDENTIFICATN (14673)Indication: URINARY TRACT INFECTION, SITE NOT SPECIFIED On: 18-Kba-150295:53 Request Comments: post treatment culture Stool Guiac Test, Office (Medicare) (G0107)Indication: Hypercholesteremia On: 6-Yta-942972:04 Request URINALYSIS, W/ MICRO (88934)Indication: Hematuria On: 59-Tuq-333961:41 Request Vitamin D Hydroxy (05573)Indication: Vitamin D deficiency, unspecified On: :40 Request CBC W/AUTO DIFF WBC (70912)Indication: Essential hypertension On: :40 Request METABOLIC PANEL, COMPREHENSIVE (29146)Indication: Essential hypertension On: 53-Kam-799288:39 Request LIPID PANEL (44024)Indication: Hypercholesteremia On: 21-Yll-074669:39 Request TSH (94009)Indication: Acquired hypothyroidism On: 15-Zun-329770:39 Request Vitamin D Hydroxy (48518)Indication: Vitamin D deficiency, unspecified On: 73-Xqn-667788:15 Request METABOLIC PANEL, COMPREHENSIVE (11183)Indication: Essential hypertension On: 73-Sjq-457814:14 Request LIPID PANEL (11216)Indication: Other and unspecified hyperlipidemia On: 05-Mqs-776903:14 Request FECAL OCCULT- Tubes sent home (54229)Indication: Encounter for screening for malignant neoplasm of cervix On: 16-Jab-207813:09 Request Thin prep Pap (28108)Indication: Well woman exam On: 42-Qnv-524046:46 Request LIPID PANEL (72791)Indication: Hypercholesteremia On: 79-Yuu-011744:23 Request MADAY CULTURE-OTHER (85812)Indication: Cellulitis On: 12-Qas-09462:22 Request METABOLIC PANEL, COMPREHENSIVE (28808)Indication: Essential hypertension On: :04 Request CBC WITH MANUAL DIFF (46412)Indication: Essential hypertension On: 85-Asx-535316:04 Request Vitamin D Hydroxy (35451)Indication: Vitamin D deficiency, unspecified On: 35-Jgn-094631:04 Request TSH (55624)Indication: Acquired hypothyroidism On: :04 Request LIPID PANEL (58983)Indication: Other and unspecified hyperlipidemia On: 53-Fzr-797332:04 Request Vitamin D Hydroxy (77784)Indication: Vitamin D deficiency, unspecified On: : Request METABOLIC PANEL, COMPREHENSIVE (70907)Indication: Essential hypertension On: : Request LIPID PANEL (48997)Indication: Other and unspecified hyperlipidemia On: : Request Amylase (27870)Indication: Abdominal pain, acute, right upper quadrant On: :05 Request Lipase (24600)Indication: Abdominal pain, acute, right upper quadrant On: :05 Request THROAT CULTURE (44036)Indication: ACUTE PHARYNGITIS (462.) On: 89-Ggk-183689:37 Request CALCIFEDIOL (31326)Indication: Vitamin D deficiency, unspecified On: 50-Qxf-09325:35 Request URINALYSIS, W/ MICRO (97100)Indication: Essential hypertension On: 28-Ixa-413483:50 Request LIPID PANEL (25691)Indication: Other and unspecified hyperlipidemia On: :49 Request CBC WITH MANUAL DIFF (85824)Indication: Essential hypertension On: 34-Bem-744821:49 Request METABOLIC PANEL, COMPREHENSIVE (62479)Indication: Essential hypertension On: :49 Request TSH (39938)Indication: Acquired hypothyroidism On: 20-Avg-577421:49 Request SKIN TEST INTRADERMAL TB (63459)Indication: Erythema nodosum On: :49 Request Comments: Site- Left forearm MADAY CULTURE-OTHER (55613)Indication: Erythema nodosum On: 19-Srb-422230:37 Request ANTISTREPTOLYSIN O-TITER (43151)Indication: Erythema nodosum On: 19-Aeb-367550:33 Request TSH (51066)Indication: Fatigue On: 86-Zlk-279326:22 Request URINALYSIS, W/ MICRO (62761)Indication: Erythema nodosum On: 12-Ybw-832650:20 Request C-REACTIVE PROTEIN (79291)Indication: Erythema nodosum On: :20 Request SED RATE ERYTHROCYTE (70481)Indication: Erythema nodosum On: 00-Cwb-442901:20 Request METABOLIC PANEL, COMPREHENSIVE (20165)Indication: Erythema nodosum On: :20 Request CBC WITH MANUAL DIFF (66352)Indication: Erythema nodosum On: :20 Request XOCHILT (ANTINUCLEAR ANTIBODY) (71631)Indication: Erythema nodosum On: :19 Request RHEUMATOID FACTOR-QUANT (17175)Indication: Erythema nodosum On: :19 Request Thin prep Pap (89552)Indication: Well woman exam On: :17 Request URINALYSIS, W/ MICRO (75199)Indication: Essential hypertension On: :07 Request CBC WITH MANUAL DIFF (95720)Indication: Essential hypertension On: :07 Request LIPID PANEL (86976)Indication: Other and unspecified hyperlipidemia On: :06 Request TSH (61361)Indication: Acquired hypothyroidism On: :06 Request METABOLIC PANEL, COMPREHENSIVE (12738)Indication: Essential hypertension On: :06 Request METABOLIC PANEL, COMPREHENSIVE (38088)Indication: Essential hypertension On: 22-Uuc-433617:53 Request TSH (79492)Indication: Acquired hypothyroidism On: 86-Vsq-446299:53 Request LIPID PANEL (68302)Indication: Other and unspecified hyperlipidemia On: 00-Yaz-057607:53 Request LIPID PANEL (15249)Indication: Other and unspecified hyperlipidemia On: 38-Pik-407585:31 Request METABOLIC PANEL, COMPREHENSIVE (64754)Indication: Essential hypertension On: :30 Request CBC WITH MANUAL DIFF (71298)Indication: Essential hypertension On: 21-Fsp-683712:30 Request TSH (22600)Indication: Acquired hypothyroidism On: 28-Jtx-602499:30 Request MADAY CULTURE-OTHER (03711)Indication: Neoplasm of uncertain behavior of skin On: :26 Request Thin prep Pap (75061)Indication: Well woman exam On: 07-Mwo-566785:00 Request Magnesium (26574)Indication: Palpitations On: 93-Kkw-489945:12 Request T4, FREE (THYROXINE) (53621)Indication: Palpitations On: 95-Pav-026467:12 Request T3, FREE (TRIDOTHYRONINE) (67407)Indication: Palpitations On: 15-Uzd-082403:11 Request CBC WITH MANUAL DIFF (19508)Indication: Essential hypertension On: 51-Avg-248003:11 Request METABOLIC PANEL, COMPREHENSIVE (83544)Indication: Essential hypertension On: 77-Pul-724401:10 Request TSH (65466)Indication: Acquired hypothyroidism On: 46-Vrs-378469:10 Request LIPID PANEL (33506)Indication: Other and unspecified hyperlipidemia On: 09-Cvc-802772:10 Request METABOLIC PANEL, COMPREHENSIVE (01842)Indication: Essential hypertension On: 29-Loq-623155:06 Request URINALYSIS W/O MICRO (52962)Indication: Essential hypertension On: 02-Min-233700:05 Request TSH (39348)Indication: Acquired hypothyroidism On: 88-Wkk-846680:05 Request HEPATIC FUNCTION PANEL (46259)Indication: Other and unspecified hyperlipidemia On: 24-Ovm-222570:05 Request LIPID PANEL (96746)Indication: Other and unspecified hyperlipidemia On: 10-Dkk-281987:05 Request FERRITIN (24481)Indication: Other and unspecified hyperlipidemia On: 81-Iok-133956:53 Request HEPATIC FUNCTION PANEL (49025)Indication: Other and unspecified hyperlipidemia On: 27-Fgz-173121:53 Request LIPID PANEL (70659)Indication: Other and unspecified hyperlipidemia On: 86-Rbg-328160:53 Request MADAY CULTURE-OTHER (14477)Indication: ACUTE PHARYNGITIS (462.) On: 37-Woo-637548:20 Request CBC WITH MANUAL DIFF (16737)Indication: Essential hypertension On: :26 Request LIPID PANEL (74504)Indication: Other and unspecified hyperlipidemia On: :22 Request METABOLIC PANEL, COMPREHENSIVE (86999)Indication: Hyponatremia On: :22 Request TSH (21344)Indication: Acquired hypothyroidism On: :22 Request METABOLIC PANEL, COMPREHENSIVE (17395)Indication: Hyponatremia On: 63-Psl-320401:00 Request CBC WITH MANUAL DIFF (89177)Indication: Anemia, unspecified On: 12-Okk-793200:00 Request SED RATE ERYTHROCYTE (41719)Indication: Epigastric pain On: 28-Qfv-598597:03 Request C-REACTIVE PROTEIN (39983)Indication: Epigastric pain On: 62-Dui-752434:03 Request METABOLIC PANEL, COMPREHENSIVE (35767)Indication: Epigastric pain On: 39-Sdk-190368:02 Request CBC WITH MANUAL DIFF (43798)Indication: Epigastric pain On: 91-Scw-466321:02 Request METABOLIC PANEL, COMPREHENSIVE (28611)Indication: Essential hypertension On: 81-Udm-898667:49 Request TSH (41294)Indication: Acquired hypothyroidism On: 02-Ssp-878499:42 Request LIPID PANEL (01621)Indication: Other and unspecified hyperlipidemia On: 08-Pmp-508207:42 Request URINE MADAY CULTURE (FARIBA COL COUNT) (32329)Indication: Dysuria On: 2-Cyd-357392:04 Request LIPID PANEL (26233)Indication: Other and unspecified hyperlipidemia On: 5-Wpz-912970:05 Request MICROALBUMIN URINE QUANT (82548)Indication: Essential hypertension On: 3-Oru-940845:05 Request TSH (19923)Indication: Acquired hypothyroidism On: 6-Eeb-150728:04 Request URINALYSIS W/O MICRO (00892)Indication: Essential hypertension On: 2-Fdr-795502:04 Request METABOLIC PANEL, COMPREHENSIVE (85037)Indication: Essential hypertension On: 2-Emz-568300:04 Request CBC WITH MANUAL DIFF (25259)Indication: Essential hypertension On: 7-Qhx-055043:04 Request Planned Encounters Medical; 6 Month FU - On: 14-Jul-2018 9:00 [facility] Windy Mayorga DO, DO, Kathleen Planned Procedures Flu Vaccine (Quadrivalent) On: 11-Jun-2018 Intent 85675Ct: Visit, Nurse Comments: Lot #:[id number] date: 2-94-38Cmnbyh given:0.5mlRoute: IMSite given:L DltdGiven by: Melissa and ABN signed Fluarix Ultrasound - Breast - LeftBy: On: 04-Sep-2017 Intent Windy Mayorga DO, DO, Kathleen [facility] On: 29-Jun-2017 Intent COUNSELING FOR OBESITY, 15 MINUTES (G0447)By: Windy Mayorga DO, DO, Kathleen DEXA SCAN AXIAL SKELETON On: 29-Jun-2017 Intent (29713)By: Windy Mayorga DO, DO, Kathleen SCREENING DIGITAL TOMOSYNTHESIS On: 29-Jun-2017 Intent OF BREAST (86501)By: Windy Mayorga DO, DO, Kathleen ELECTROCARDIOGRAM, COMPLETE (ECG) On: 29-Jun-2017 Intent (62008)By: Windy Mayorga DO Comments: nsr no acute chg Windy Mayorga DO Flu Vaccine (Quadrivalent) On: 17-Jun-2017 Intent 66180Ha: Visit, Nurse Comments: Lot #[id number]/15/18ite-L dltd, IMDose prefilled syringegiven by:DAGMAR Mathis and DANNIELLE signed MAMMOGRAM, SCREENING, BOTH BREAST On: 16-May-2016 Intent (07632)By: Windy Mayorga DO, DO, Kathleen Flu Vaccine (Quadrivalent) On: 07-May-2016 Intent 86473Cf: Windy Mayorga DO Comments: Lot:[id number]:02/27/17Dose:0.5mLRoute:IMSite:L DltdGiven By:GENTRY signed ConcettaWindy phipps DO ELECTROCARDIOGRAM, COMPLETE (ECG) On: 07-May-2016 Intent (16130)By: Windy Mayorga DO Comments: nsr no acute chg Windy Mayorga DO Aerosol Treatment (04768)By: On: 26-Mar-2016 Intent Slarb ENERGY AUDITOR, Lucretia Radiology - Chest- PA and LatBy: On: 03-Dec-2015 Intent Fast , Raya A Aerosol Treatment (83712)By: On: 12-Nov-2015 Intent Slarb ENERGY AUDITOR, Lucretia Flu Vaccine (Quadrivalent) On: 07-Jun-2015 Intent 49175Wj: Visit, Nurse Comments: Lot #[id number]-L dltd, IMDose prefilled syringegiven by:CLAYTON MathisVIS and ABN signed Pap Smear, Medicare (Q0091)By: On: 11-Apr-2015 Intent Raya Viera DO MAMMOGRAM, SCREENING, BOTH BREAST On: 11-Apr-2015 Intent (15641)By: Raya Viera DO Aerosol Treatment (00510)By: On: 09-Apr-2015 Intent Lucretia Murray LPN Radiology - Sacrum/CoccyxBy: Fast On: 04-Oct-2014 Intent Raya COLEY ADMINISTRATION OF INFLUENZA VIRUS On: 09-Jun-2014 Intent VACCINE (G0008)By: Félix, Nurse FLU VAC, SPLIT, >3 YEARS, On: 09-Jun-2014 Intent INTRAMUSC (87611)By: Juve COLEY, Comments: Lot:[id number]:02/27/15Dose:0.5mLRoute:IMSite:L DltdGiven By:GENTRY signed Raya A MAMMOGRAM, SCREENING, BOTH BREAST On: 29-Mar-2014 Intent (38157)By: Raya Viera DO Comments: mar EKG (50427)By: Raya Viera DO On: 29-Mar-2014 Intent Comments: ekg showed normal sinus rhythym, normal axis, no acute st/t wave changes no change in the previous t wave inversions Eprescribed prescriptions On: 13-Jan-2014 Intent (G8553)By: Donna Locke CNP Eprescribed prescriptions On: 26-Oct-2013 Intent (G8553)By: Windy Mayorga DO, DO, Kathleen Radiology - Knee - RightBy: On: 26-Oct-2013 Intent Windy Mayorga DO, DO, Kathleen Eprescribed prescriptions On: 17-Aug-2013 Intent (G8553)By: Renetta Hough LPN FLU VAC, SPLIT, >3 YEARS, On: 19-Jul-2013 Intent INTRAMUSC (53753)By: Juve COLEY, Comments: lot [id number] 2014site/route L olga, IMamt 0.5mlVIS and ABN signed when applicableCheMOHINDER rudolph Raya A ADMINISTRATION OF INFLUENZA VIRUS On: 19-Jul-2013 Intent VACCINE (G0008)By: Raya Viera DO Eprescribed prescriptions On: 19-Jul-2013 Intent (G8553)By: Jennifer Coronado Pulse Oximetry (63518)By: On: 22-Apr-2013 Intent THALIA Pereira EKG (73063)By: Jennifer Coronado On: 28-Jan-2013 Intent Comments: ekg showed normal sinus rhythym, normal axis, no acute st/t wave changes MAMMOGRAM, SCREENING, BOTH On: 28-Jan-2013 Intent BREASTS (66291)By: Raya Viera DO Comments: end march A Eprescribed prescriptions On: 09-Sep-2012 Intent (G8553)By: Windy Mayorga DO, DO, Kathleen IMMUNIZ ADMNIN, 1 VAC, SNGL/COMBO On: 26-Jul-2012 Intent (44292)By: Raya Viera DO Eprescribed prescriptions On: 26-Jul-2012 Intent (G8553)By: Jennifer Coronado PNEUM VAC ADLT/IMUMNOSPR, On: 26-Jul-2012 Intent SBC/INTRM (87130)By: Juve COLEY, Comments: Lot:[id number]:Dose:0.5mLRoute:IMSite:l armven By:GENTRY rAechiga Breast Screening - BilateralBy: On: 29-Mar-2012 Intent Raya Viera DO Nuclear Medicine - HIDA w/CPKBy: On: 19-Mar-2012 Intent Chucky GROVE Liat Ultrasound - GallbladderBy: Ciesa On: 15-Mar-2012 Intent Donna GROVE Eprescribed prescriptions On: 19-Dec-2011 Intent (G8553)By: Windy Mayorga DO, DO, Kathleen EKG (96336)By: Raya Viera DO On: 27-Oct-2011 Intent Comments: ekg showed normal sinus rhythym, normal axis, no acute st/t wave changes nonspecific old t wave inversion CT - ChestBy: Raya Viera DO On: 03-Jun-2011 Intent Comments: pe protocol-not stat but sometime this week Spirometry (77882)By: Juve COLEY, On: 26-May-2011 Intent Raya Arechiga Comments: good effort and curve normal Radiology - Chest- PA and LatBy: On: 26-May-2011 Intent Raya Viera DO DRAIN/INJECT, JOINT/BURSA On: 02-May-2011 Intent ()By: Windy Mayorga DO Comments: 2 cc kaela and 1 cc kenoctavia Windy Mayorga DO TDAP VACCINE >7 IM (92180)By: On: 11-Apr-2011 Intent Raya Viera DO Comments: Lot #: [id number] date: 05/13Amount given: 0.5 mlRoute: IMSite given: left deltoidGiven by: Hawk Pardo RN EKG ([id number])By: Jennifer Coronado On: 17-Feb-2011 Intent Comments: ekg showed normal sinus rhythym, normal axis, no acute st/t wave changes nonspecific t wave inversion anteriorly- not changed- Eprescribed prescriptions On: 17-Feb-2011 Intent ([id number])By: Raya Viera DO DXA, BONE DENSITY, AXIAL SKELETON On: 17-Feb-2011 Intent ([id number])By: Raya Viera DO MAMMOGRAM, SCREENING, BOTH On: 17-Feb-2011 Intent BREASTS ([id number])By: Raya Viera DO Aerosol Treatment ([id number])By: Juve On: 14-Aug-2010 Intent Raya COLEY Spirometry ([id number])By: Clfif On: 14-Aug-2010 Intent Comments: good effort and curve -decrease small airways Radiology - Chest- PA and LatBy: On: 14-Aug-2010 Intent Raya Viera DO Pulse Oximetry ([id number])By: On: 14-Aug-2010 Intent Jennifer Coronado Comments: 96% Pulse Oximetry ([id number])By: Chucky On: 31-Jul-2010 Intent Donna GROVE Aerosol Treatment ([id number])By: On: 31-Jul-2010 Intent Donna Locke CNP Pulse Oximetry ([id number])By: Ciesa On: 15-Jul-2010 Intent Donna GROVE Aerosol Treatment ([id number])By: On: 15-Jul-2010 Intent Donna Locke CNP ELECTROCARDIOGRAM, COMPLETE (ECG) On: 24-Dec-2009 Intent ([id number])By: Donna Locke CNP MAMMOGRAM, SCREENING, BOTH On: 25-Jun-2009 Intent BREASTS ([id number])By: Raya Viera DO Wax CurettesBy: Chucky GROVEDonna On: 07-Jun-2009 Intent Ear Irrigation ([id number])By: Chucky On: 07-Jun-2009 Intent Donna GROVE FLU VAC, SPLIT, >3 YEARS, On: 05-Jun-2009 Intent INTRAMUSC ([id number])By: Tuyet Camejo IMMUNIZ ADMNIN, 1 VAC, SNGL/COMBO On: 05-Jun-2009 Intent ([id number])By: Tuyet Camejo Comments: Lot #[id number] deltoidgiven by:[facility] DRAIN SKIN ABSCESS, SIMPLE/SINGLE On: 13-Nov-2008 Intent ([id number])By: Chucky GROVEDonna Holter Moniter ([id number])By: On: 12-Sep-2008 Intent THALIA Pereira Comments: placement Pt given diary and instructions she voices understanding iveth mayes DXA, BONE DENSITY, AXIAL SKELETON On: 16-Aug-2008 Intent ([id number])By: Raya Viera DO MAMMOGRAM, SCREENING, BOTH On: 16-Aug-2008 Intent BREASTS ([id number])By: Raya Viera DO Holter Monitor 24 hrsBy: Juve COLEY, On: 16-Aug-2008 Intent Raya Arechiga EKG ([id number])By: Jennifer Coronado On: 16-Aug-2008 Intent Comments: ekg showed normal sinus rhythym, normal axis, no acute st/t wave changes t wave inversion anteriorly unchanged IMMUNIZ ADMNIN, 1 VAC, SNGL/COMBO On: 16-Jun-2008 Intent ([id number])By: Renetta Hough LPN FLU VAC, SPLIT, >3 YEARS, On: 16-Jun-2008 Intent INTRAMUSC ([id number])By: [place], Comments: 0.5cc given im lt olga David Jackson LPN SPECIMEN HNDLNG/TRNSPRT, OFFC > On: 18-Jan-2008 Intent LAB ([id number])By: Jennifer Coronado CT - AbdomenBy: Cuauhtemoc Viera DOa A On: 19-Jul-2007 Intent Comments: stat tonight call wet read EKG ([id number])By: THALIA Pereira On: 21-Jun-2007 Intent Comments: ekg showed normal sinus rhythym, normal axis, no acute st/t wave changesasymetric twave inversion- no change FLU VAC, SPLIT, >3 YEARS, On: 21-Jun-2007 Intent INTRAMUSC ([id number])By: Randall, Comments: Lot #:Expiration date:Amount given:Route: IMSite given:left deltoidGiven by: iveth Lot # [id number] exp 02-28-08 THALIA IMMUNIZ ADMNIN, 1 VAC, SNGL/COMBO On: 21-Jun-2007 Intent ([id number])By: THALIA Pereira VAC, SPLIT, >3 YEARS, On: 06-Jul-2006 Intent INTRAMUSC ([id number])By: THALIA Pereira IMMUNIZ ADMNIN, 1 VAC, SNGL/COMBO On: 06-Jul-2006 Intent ([id number])By: THALIA Pereira Comments: Lot #:Expiration date:Amount given:Route: [...] Hypercholesteremia : DISCONTINUED - METABOLIC PANEL, COMPREHENSIVE ([id number]) Indication: Hypercholesteremia Hypercholesteremia : DISCONTINUED - LIPID PANEL ([id number]) Indication: Hypercholesteremia BMI 30.0-30.9,adult : How to [...] Indication: Essential hypertension Encounters Office Visit On: 11-Jun-2018 13:44 Encounter Diagnosis: [...] The patient does have durable power of commercial real estate attorney and living will. The patient has noticed nothing from the geriatic depression scale. Other providers contributing to the patient's care are fpga design engineer and librarian special collections. Encounter Diagnosis: BMI 30.0-30.9,adult, Nonsmoker, Acquired hypothyroidism, [...] The patient does have durable power of commercial real estate attorney and living will. The [...] The patient does have durable power of commercial real estate attorney and living will. The [...] sarcoid issues bp good aniety godean and josejarrede npainnot routinely agained offered referral to ortho [...] Well Women Exam: no breast mass no [id number] Encounter Diagnosis: Annual Medicare Physical (V70.0), Well [...] pounds and trying she is working [employer] and bp lower now and has some [...] The patient does have durable power of commercial real estate attorney and living will. The patient has noticed nothing from the geriatic depression scale. Other pr oviders contributing to the patient's care are fpga design engineer (Dr. Candelario), gastrologist (Dr. Marion) and other: [...] thigh pain go ne- the therapy at [facility] helped - bp stable and no more [...] Knee Pain: she has been back to [facility] End: 25-Feb-2012 9:37 and 3 seesions of [...] compliant with instructions. Current medication use: no axnder End: 17-Apr-2010 9:11 e effects and compliant [...] of angina ,history of CHF ,history of CA ,smoking ,syncope or use of decongestants. Note [...] otc now but took aleve-- did help Nkechiritaandrew Diagnosis: Knee pain (719.46) [facility] [...] weight :. 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
--- OUTSIDE RECORDS SUMMARY | 2018-11-21 02:25 | XMS RPT_ITS | Continuity of Care Document ---
:1950 Author Organization [facility] Address [address] [facility] [address] [place] [address] Phone Care Team Providers Name Role Phone Windy Mayorga DO Unavailable Dr. 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 medrol dose eyad then go to [employer] tid. will be traveling. if not better [...] Result: Comments: See Note; NOTES: [facility] [address] [place] [address] 6 [place] [address] OFFICE VISIT Date of Service: 10/10/17 MR#: [id number] Acct: [id number] Name: JULIET SHORT Rep #: [id number] : 1950 Provider: Cuba GONSALVES Age/Sex: 67/F Location: [facility] Status: Signed Intake Vital Signs10/10/17 Height 5 [...] 5 Days #10 10/10/17 [History Confirmed 10/10/17] [facility] Medical History Knee pain (Acute) Thyroid [...] the above. This note was generated with [employer] dictation software. It may contain incorrect words, [...] <Electronically signed by Cuba GONSALVES> Date Cuba De La Cruz Signature: Date (if applicable) CC: 07-Sep-2017 Breast Limited Unilateral Result: Comments: See Note; NOTES: [facility] Imaging Services [address] [place] [address] Breast Limited Unilateral MR#: [id number] Acct: [id number] Name: JULIET SHORT Rep #: [id number] : 1950 F 67 From: Cruizto Khan MD PCP: Windy Mayorga DO Status: REG CLI Study: Breast Limited Unilateral Date of Exam: 09/07/17 Exam# [id number] Ordering Dr: Windy Mayorga DO STUDY: ULTRASOUND [...] Cruzito Khan MD at 15:14 EST Tel [phone], Service support , CC: Windy Mayorga DO Wire Annealer: Signed 03-Sep-2017 Dexa Bone Density Study (HP) Result: Comments: See Note; NOTES: [facility] [address] [facility] [place] [address] Dexa Bone Density Study (HP) MR#: [id number] Acct: [id number] Name: JULIET SHORT Rep #: [id number] : 1950 F 67 From: Cruzito Khan MD PCP: Windy Mayorga DO Status: [facility] CLI Study: Dexa Bone Density Study (HP) Date of Exam: 09/08/17 Exam# [id number] Ordering Dr: Delfina Mayorga DO STUDY: DUAL [...] Cruzito Khan MD at 8:30 EST Tel [phone], Service support , CC: Windy Mayorga DO Wire Annealer: Signed 03-Sep-2017 SCREENING MAMM (CAD), BILAT Result: Comments: See Note; NOTES: [facility] [address] [address] SCREENING MAMM (CAD), BILAT MR#: [id number] Acct: [id number] Name: JULIET SHORT Rep #: [id number] : 1950 F 67 From: Cruzito Khan MD PCP: Windy Mayorga DO Status: REG CLI Study: SCREENING MAMM (CAD), BILAT Date of Exam: 09/03/17 Exam# [id number] Ordering Dr: Windy Mayorga DO MAMMOGRAPHY - [...] delay biopsy of a clinically suspicious abnormality. [id number] Electronically Signed: Cruzito Khan MD at 14:17 EST Tel [phone], Service support , CC: Windy Mayorga DO Wire Annealer: Signed 30-Mar-2017 Inital Evaluation (1) - PT Result: Comments: See Note; NOTES: [facility] [address] [place] [address] Fax REHABILITATION SERVICES INITIAL EVALUATION MR#: [id number] Acct: [id number] Name: JULIET SHORT Rep #: [id number] : 1950 67 From: Kimberley Clemente DPT Referring Dr.: Cyndy Ann DPM Status: REG RCR Insurance: MEDICARE P ART A B AARP Patient's Visit Information JULIET SHORT is a 67 year old F referred to Physical Therapy by Cyndy Ann DPM with a diagnosis of Plantar Fascitis. Date of Evaluation: 03/30/17 [facility] Therapist: Kimberley Clemente - Visit Plan Frequency: 2x /Week Duration: 2 Weeks Plan: Dry Needling - Subjective Subjective: Patient reports plantar fascitis on the right- has had it before and it w ent away on its own starting 3 years ago- stretches and strengthening with good shoes. This flare started in Oct when she went to [facility]- has been fighting with it since. Its affecting her lifestyle sh babak is a walker and goer. Pain is located in the heel. Pain is sporatic- feels like a dagger and burning around the heel. Worst: 04/09 Agg: walking- Wearing night splints- wears 8-9 [...] and is much better. 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 For Medicare and [employer] O plans, please review the plan of care and approve it. It will need to be FAXED BACK to us at [phone] for Medicare purposes. Please let me know if there are questions or concerns regar ding this plan of care. Physician Signature: Date: <Electronically signed by Kimberley Clemente DPT> 03/30/17 8440 CC: Tamika Ann DPM; Windy Mayorga DO ELR Signed For Medicare only, by signing this I certify the plan of care. Physicians Signature Date 26-Nov-2016 PT D/C Summary (1) Result: Comments: See Note; NOTES: [facility] [address] [place] [address]. [address] [place] [address] Fax REHABILITATION SERVICES DISCHAR GE SUMMARY MR#: [id number] Acct: [id number] Name: JULIET SHORT Rep #: [id number] : 1950 66 From: Sunshine Green PT, Cert. MDT Referring Dr.: Windy Mayorga DO Status: REG RCR Insurance: MED [employer] PART A B AARP - PT D/C [...] please feel free to call me at [phone]. Thank you for the referral of this patient. Sincerely, Sunshine Arechiga Cro ss <Electronically signed by Cert. MAIRA Stone PTT> 11/26/16 1422 CC: Windy Mayorga DO TIFFANY Signed 29-Sep-2016 Inital Evaluation (1) - PT Result: Comments: See Note; NOTES: [facility] [address] [place] [address] Fax REHABILITATION SERVICES INITIAL EVALUATION MR#: [id number] Acct: [id number] Name: JULIET SHORT Rep #: [id number] : 1950 66 From: Cert. MAIRA Stone PTT Referring Dr.: Windy Mayorga DO Status: REG RCR Insurance: [place] PART A B AARP Patient's Visit [...] to evaluate your patient. For Medicare and [facility] plans, please review the plan of care and approve it. It will need to be FAXED BACK to us at [phone] for Medicare purposes. Please let me know [...] AND CAD Result: Comments: See Note; NOTES: [facility] [address] [place] [address] Verdana 4d Bilat Scrn Digital AND CAD MR#: [id number] Acct: [id number] Name: JULIET SHORT Rep #: [id number] : 1950 F 66 From: Cruzito Khan MD PCP: Windy Mayorga DO Status: REG CLI Study: Bilat Scrn Digital AND CAD Date of Exam: 06/26/16 Exam# [id number] Ordering Dr: Windy Mayorga DO MAMMOGRAPHY - [...] delay biopsy of a clinically suspicious abnormality. [id number] Electronically Signed: Cruzito Khan MD at 14:03 EDT Tel [phone], Service support [phone], CC: Windy Mayorga DO Wire Annealer: Signed 26-May-2016 Chest PA and Lateral Result: Comments: See Note; NOTES: [facility] [address] [place] [address] Verdana 4d Chest PA and Lateral MR#: [id number] Acct: [id number] Name: JULIET SHORT Rep #: [id number] : 1950 F 66 From: Samuel Cutler MD PCP: Windy Mayorga DO Status: REG CLI Study: Chest PA and Lateral Date of Exam: 05/26/16 Exam# [id number] Ordering Dr: Gatito Laurent MD STUDY: X-RAY [...] MD at 0:00 EDT , Service support [phone], CC: Windy Mayorga DO; Gatito Laurent MD Wire Annealer: Signed 03-Dec-2015 Chest PA and Lateral Result: Comments: See Note; NOTES: [facility] [address] [place] [address] Verdana 4d Chest PA and Lateral MR#: [id number] Acct: [id number] Name: JULIET SHORT Rep #: [id number] : 1950 F 65 From: Rush Arauz MD PCP: Raya Viera DO Status: REG CLI Study: Chest PA and Lateral Date of Exam: 12/03/15 Exam# [id number] Ordering Dr: Wyatt Viera DO STUDY: X-RAY [...] at 6:54 EDT Tel , Service support [phone], RAD/Chest PA and Lateral IMPRESSION: No acute cardiopulmonary disease is seen, although I suspect some inters titial lung disease or mild fibrotic changes as could be seen with parenchymal phase of sarcoidosis, interval regression of the hilar prominence or adenopathy previously demonstrated. Electronically Signed: Donnie Arauz MD at 6:54 EDT Tel , Service support [phone], CC: Raya Viera DO Wire Annealer: Signed 03-Dec-2015 Spirometry (53837) Comments: good effort and curve normal- alot of coughing Result: 27-Apr-2015 Bilat Scrn Digital AND CAD Result: Comments: See Note; NOTES: [facility] [address] [place] [address] Breast Imaging Report MR#: [id number] Acct: [id number] Name: JULIET SHORT Rep #: [id number] : 1950 F 65 From: Cruzito Khan MD PCP: Raya Viera DO Status: REG CLI Study: Bilat Scrn Digital AND CAD Date of Exam: 04/27/15 Exam# [id number] Ordering Dr: Raya Viera DO MAMMOGRAPHY - [...] these results will be sent to [facility] by the facility within 30 days. Approximately 10% of breast cancers are not detected by mammography. A normal mammogram should not delay biopsy of a clinically suspicious abnormality. Electro nically Signed: Cruzito Khan MD at 8:58 EDT Tel [phone], Service support [phone], CC: Raya Viera DO Wire Annealer: Signed 05-Oct-2014 Sacrum-Coccyx min 2 Views Result: Comments: See Note; NOTES: [facility] [address] [place] [address] Radiology Report MR#: [id number] Acct: [id number] Name: JULIET SHORT Rep #: [id number] : 1950 F 64 From: Mahendra Bedoya DO PCP: Raya Viera DO Status: REG CLI Study: Sacrum-Coccyx min 2 Views Date of Exam: 10/05/14 Exam# [id number] Ordering Dr: Raya Viera DO STUDY: X-RAY [...] sacrum or coccyx. Electronically Si gned: Mahendra BedoyaDO at 17:00 EST Tel [phone], Service support [phone], CC: Raya Viera DO Wire Annealer: Signed 26-Apr-2014 Bilat Scrn Digital & CAD Result: Comments: See Note; NOTES: [facility] [address] [place] [address] Breast Imaging Report MR#: [id number] Acct: [id number] Name: JULIET SHORT Rep #: [id number] : 1950 F 64 From: Cruzito Khan MD PCP: Raya Viera DO Status: REG CLI Exam# [id number] Ordering Dr: Raya Viera DO MAMMOGRAPHY - [...] Cruzito Khan MD at 9:13 EDT Tel [phone], Service support [phone], CC: Raay Viera DO Wire Annealer: Signed 26-Oct-2013 Knee 4 or More Views Result: Comments: See Note; NOTES: [facility] [address] [address] Radiology Report MR#: [id number] Acct: [id number] Name: JULIET SHORT Rep #: [id number] : 1950 F 63 From: Cruzito Khan MD PCP: Raya Viera DO Status: REG CLI Study: Knee 4 or More Views Date of Exam: 10/26/13 Exam# [id number] Ordering Dr: Windy Mayorga DO STUDY : [...] M.D. at 16:16 EST , Service support [phone], CC: Raya Viera DO; Windy Mayorga DO Wire Annealer: Signed Immunization Name Dates Details Influenza (3 years and up) on: 06-Jul-2006 Influenza (3 years and up) on: 21-Jun-2007 Comments: Lot #:Expiration date:Amount given:Route: IMSite given:left deltoidGiven by: iveth Lot # [id number] exp 02-28-08 Influenza (3 years and up) [...] smoker Vital Signs Date Test Result Details :43 Temperature 97.7 f Comments: Method: Temporal [...] 0.00 cm Results Date Description Value Details 38-Kkm-436447:59 URINE MADAY CULTURE-IDENTIFICATN Comments: PATIENT NOT FASTINGPERFORMED BY: [employer] [facility] [id number] iDreamBooksNov[facility] [id number] Information: SRC:UC (66757) Result 1 MUG (Normal) Comments: Mixed urogenital ndioi710 Colonies/mL Urine Culture,Comprehensive Final report (Normal) 43-Hns-422377:15 TSH (88483) Comments: PATIENT NOT FASTINGPERFORMED BY: [employer] [facility] [id number] iDreamBooksNov[facility] [id number] TSH 1.790 {uIU/mL} (Normal) Range: 0.450-4.500 70-Wpr-976909:15 T4, FREE (THYROXINE) (00335) Comments: PATIENT NOT FASTINGPERFORMED BY: JAMES [facility]DataCore[facility] [facility] [id number] T4,Free(Direct) 1.07 ng/dL (Normal) Range: 0.82-1.77 14-Nik-917784:15 T3, FREE (TRIDOTHYRONINE) (23780) Comments: PATIENT NOT FASTINGPERFORMED BY: [facility]6[address] [facility] [id number] Triiodothyronine (T3), Free 2.7 pg/mL (Normal) Range: 2.0-4.4 39-Azk-475896:15 Microscopic Examination Comments: PATIENT WAS FASTINGPERFORMED BY: [facility]6[address] [facility] [id number] Bacteria None seen (Normal) Mucus Threads Present (Normal) Epithelial Cells (non renal) 0-10 {/hpf} (Normal) Range: 0 - 10 RBC 0-2 {/hpf} (Normal) Range: 0 - 2 WBC 0-5 {/hpf} (Normal) Range: 0 - 5 40-Ekn-390828:11 URINE MADAY CULTURE-FARIBA COL Comments: PATIENT NOT FASTINGPERFORMED BY: [facility]6[address] [facility] [id number] Information: SRC:UC COUNT (96046) Antimicrobial MIHEAD (Normal) Comments: S = Susceptible; [...] mL (Abnormal) Urine Final report Culture,Comprehensive (Abnormal) 94-Jww-428831:07 Urinalysis, Office (25252) UA - LEUKOCYTE ESTERASE Small (Normal) UA - NITRITE Negative (Normal) URINE UROBILINGN FARIBA TIMED Normal mg/dL (Normal) UA - PROTEIN Negative mg/dL (Normal) UA - PH 6 (Abnormal) UA - BLOOD Negative (Normal) UA - SPECIFIC GRAVITY 1.015 (Normal) UA - KETONES Negative mg/dL (Normal) UA - BILIRUBIN Negative (Normal) UA - GLUCOSE Negative (Normal) 25-Era-520781:16 URINE MADAY CULTURE-IDENTIFICATN Comments: PERFORMED BY: JAMES LabI AM ATNovant Health Rehabilitation Hospital [id number] Information: SRC:UR (67547) Antimicrobial MIHEAD (Normal) Comments: S = Susceptible; [...] mL (Abnormal) Urine Final report Culture,Comprehensive (Abnormal) 49-Mqt-297701:00 Urinalysis, Office (97518) UA - LEUKOCYTE ESTERASE Large (Normal) UA - NITRITE Positive (Normal) URINE UROBILINGN FARIBA TIMED 2 mg/dL (Normal) UA - PROTEIN Negative mg/dL (Normal) UA - PH 5.0 (Normal) UA - BLOOD Hemolyzed Small (Normal) UA - SPECIFIC GRAVITY 1.015 (Normal) UA - KETONES Negative mg/dL (Normal) UA - BILIRUBIN Negative (Normal) UA - GLUCOSE Negative (Normal) 69-Azt-191599:12 Rapid Flu (32639 x 2) Influenza A Ag Positive A (Normal) Comments: had flu shot 73-Emx-080448:15 CALCIFIDIOL (94812) VIT D 25 Comments: PATIENT WAS FASTINGPERFORMED BY: JAMES LabCoCloudFabNovant [facility] [id number] Vitamin D, 25-Hydroxy 45.6 ng/mL (Normal) Range: 30.0-100.0 Comments: Vitamin D deficiency has been defined by the [place] of[place]icine and an Endocrine Society practice guideline as alevel of serum 25-OH vitamin D less than 20 ng/mL (1,2).The Endocrine Society went on to further define vitamin Dinsufficiency as a level between 21 and 29 ng/mL (2).1. IOM ([place] of Medicine). 2010. Dietary reference intakes for calcium and D. [place]: The National Academies Press.2. Dung MF, Ken MCFARLAND, Diego ELMORE, et al. Evaluation, treatment, and prevention of vitamin D deficiency: an Endocrine Society clinical practice guideline. JCEM. 2010; 96(7):1911-30. 31-Qdb-780212:15 TSH (74710) Comments: PATIENT WAS FASTINGPERFORMED BY: [employer]6370 [employer]in [place] [id number] TSH 4.170 {uIU/mL} (Normal) Range: 0.450-4.500 65-Cvr-919871:15 URINALYSIS, W/ MICRO (47352) Comments: PATIENT WAS FASTINGPERFORMED BY: [employer]6370 [employer] [place] [id number] Microscopic Examination See below: (Normal) Comments: Microscopic was indicated and was performed. Microscopic Examination MICRON (Normal) Comments: Microscopic follows if indicated. Nitrite, Urine Negative (Normal) Urobilinogen,Semi-Qn 0.2 mg/dL (Normal) Range: 0.2-1.0 Bilirubin Negative (Normal) Occult Blood Negative (Normal) Ketones Negative (Normal) Glucose Negative (Normal) Protein Negative (Normal) WBC Esterase Negative (Normal) Appearance Clear (Normal) Urine-Color Yellow (Normal) pH 7.0 (Normal) Range: 5.0-7.5 Specific [place] 1.020 (Normal) Range: 1.005-1.030 47-Gff-497602:15 MICROALBUMIN: CREATININE RATIO Comments: PATIENT WAS FASTINGPERFORMED BY: [employer]6370 [employer] [place] [id number] (60463) AND (31328) Alb/Creat Ratio 17.8 {mg/g_creat} (Normal) Range: 0.0-30.0 Albumin, Urine 25.9 ug/mL (Normal) Creatinine, Urine 145.6 mg/dL (Normal) 09-Lmz-897826:15 METABOLIC PANEL, COMPREHENSIVE Comments: PATIENT WAS FASTINGPERFORMED BY: [facility]CoCap[facility]Lazkxk1245 [facility] [id number] (32559) ALT (SGPT) 15 [iU]/L (Normal) Range: 0-32 [...] 8-27 Glucose 83 mg/dL (Normal) Range: 65-99 89-Bsl-277175:15 LIPID PANEL (99968) Comments: PATIENT WAS FASTINGPERFORMED BY: [facility]Co[facility]Iiwzrg0424 [facility] [id number] LDL/HDL Ratio 1.3 {ratio} (Normal) Range: 0.0-3.2 Comments: LDL/HDL Ratio Men Women 1/2 Avg.Risk 1.0 1.5 Av g.Risk 3.6 3.2 2X Avg.Risk 6.2 5.0 3X Avg.Risk 8.0 6.1 LDL Cholesterol Calc 94 mg/dL (Normal) Range: 0-99 VLDL Cholesterol Gabriel 17 mg/dL (Normal) Range: 5-40 HDL Cholesterol 72 mg/dL (Normal) Triglycerides 86 mg/dL (Normal) Range: 0-149 Cholesterol, Total 183 mg/dL (Normal) Range: 100-199 40-Yvw-678149:15 CBC W/AUTO DIFF WBC (31244) Comments: PATIENT WAS FASTINGPERFORMED BY: [facility] Aavbsb0951 [facility] [id number] Immature Grans (Abs) 0.0 {x10E3/uL} (Normal) Range: [...] CULTURE-IDENTIFICATN Comments: PATIENT NOT FASTINGPERFORMED BY: JAMES Really [facility]ap GeeksNov[facility] [id number] Information: SRC: (93589) Antimicrobial MIHEAD (Normal) Comments: S = Susceptible; [...] . (Abnormal) Urine Final report Culture,Comprehensive (Abnormal) 16-Glr-250059:51 Urinalysis, Office (49509) UA - LEUKOCYTE ESTERASE Moderate (Normal) UA [...] Microscopic Examination Comments: PATIENT WAS FASTINGPERFORMED BY: [employer]70 [facility] [id number] Bacteria None seen (Normal) Mucus Threads Present (Normal) Cast Type Hyaline casts (Normal) Casts Present {/lpf} (Abnormal) Epithelial Cells (non renal) 0-10 {/hpf} (Normal) Range: 0 - 10 RBC None seen {/hpf} (Normal) Range: 0 - 2 WBC 0-5 {/hpf} (Normal) Range: 0 - 5 :38 TSH (37716) Comments: PATIENT WAS FASTINGPERFORMED BY: [employer]70 [place] [facility]handyhandNov[facility] [id number] TSH 2.710 {uIU/mL} (Normal) Range: 0.450-4.500 :38 T4, FREE (THYROXINE) (72899) Comments: PATIENT WAS FASTINGPERFORMED BY: [facility]6[address] [facility] [id number] T4,Free(Direct) 1.21 ng/dL (Normal) Range: 0.82-1.77 :38 T3, FREE (TRIDOTHYRONINE) (58249) Comments: PATIENT WAS FASTINGPERFORMED BY: [address] [id number] Triiodothyronine,Free,Serum 2.8 pg/mL (Normal) Range: 2.0-4.4 :38 URINALYSIS, W/ MICRO (70711) Comments: PATIENT WAS FASTINGPERFORMED BY: [address] [id number] Microscopic Examination See below: (Normal) Comments: Microscopic was indicated and was performed. Microscopic Examination MICRON (Normal) Comments: Microscopic follows if indicated. Nitrite, Urine Negative (Normal) Urobilinogen,Semi-Qn 0.2 mg/dL (Normal) Range: 0.2-1.0 Bilirubin Negative (Normal) Occult Blood Negative (Normal) Ketones Negative (Normal) Glucose Negative (Normal) Protein Negative (Normal) WBC Esterase Negative (Normal) Appearance Clear (Normal) Urine-Color Yellow (Normal) pH 7.0 (Normal) Range: 5.0-7.5 Specific [place] 1.017 (Normal) Range: 1.005-1.030 :38 MICROALBUMIN: CREATININE RATIO Comments: PATIENT WAS FASTINGPERFORMED BY: [place] [id number] [facility] [id number] (57762) AND (26641) Microalb/Creat Ratio 5.3 {mg/g_creat} (Normal) Range: 0.0-30.0 Microalbumin, Urine 4.6 ug/mL (Normal) Creatinine, Urine 87.1 mg/dL (Normal) :38 METABOLIC PANEL, COMPREHENSIVE Comments: PATIENT WAS FASTINGPERFORMED BY: [employer] Djrpon8243 [facility] [id number] (01572) ALT (SGPT) 14 [iU]/L (Normal) Range: 0-32 [...] Glucose, Serum 95 mg/dL (Normal) Range: 65-99 53-Dze-78586:38 CBC W/AUTO DIFF WBC (30586) Comments: PATIENT WAS FASTINGPERFORMED BY: AD[facility] CR[facility] TECHNOLOGIESCapital [facility])Lydhlz6669 [facility] [id number] Immature Grans (Abs) 0.0 {x10E3/uL} (Normal) Range: [...] {x10E3/uL} (Normal) Range: 3.4-10.8 :38 LIPID PANEL (46052) Comments: PATIENT WAS FASTINGPERFORMED BY: [facility]CoCap[facility]Zkiuaa7860 [facility] [id number] LDL/HDL Ratio 1.4 {ratio_units} (Normal) Range: 0.0-3.2 [...] 187 mg/dL (Normal) Range: 100-199 :38 CALCIFIDIOL (16701) VIT D 25 Comments: PATIENT WAS FASTINGPERFORMED BY: [facility]CoCap[facility]Nwaoot2194 [facility] [id number] Vitamin D, 25-Hydroxy 49.1 ng/mL (Normal) Range: 30.0-100.0 Comments: Vitamin D deficiency has been defined by the [place] of[place]icine and an Endocrine Society practice guideline as alevel of serum 25-OH vitamin D less than 20 ng/mL (1,2).The Endocrine Society went on to further define vitamin Dinsufficiency as a level between 21 and 29 ng/mL (2).1. IOM ([place] of Medicine). 2010. Dietary reference intakes for calcium and D. [place]: The National Academies Press.2. Dung MF, Ken MCFARLAND, Diego ELMORE, et al. Evaluation, treatment, and prevention of vitamin D deficiency: an Endocrine Society clinical practice guideline. JCEM. 2010; 96(7):1911-30. :11 URINE MADAY CULTURE-IDENTIFICATN Comments: PATIENT NOT FASTINGPERFORMED BY: LabCo Albjqd9573 [facility] [id number] Information: SRC: (19921) Result 1 MUG (Normal) Comments: Mixed urogenital flora25,000-50,000 colony forming units per mL Urine Final report (Normal) Culture,Comprehensive :26 Urinalysis, Office (51966) UA - LEUKOCYTE ESTERASE Small (Normal) UA - NITRITE Negative (Normal) URINE UROBILINGN FARIBA TIMED Normal mg/dL (Normal) UA - PROTEIN Negative mg/dL (Normal) UA - PH 7 (Normal) UA - BLOOD Negative (Normal) UA - SPECIFIC GRAVITY 1.025 (Normal) UA - KETONES Negative mg/dL (Normal) UA - BILIRUBIN Negative (Normal) UA - GLUCOSE Negative (Normal) :24 Fecal Occult Blood , Office (95096) Fecal Occult Blood , Office (Inhouse) negative (Normal) :54 Fecal Occult Blood , Office (42324) Fecal Occult Blood , Office (Inhouse) positive (Normal) :24 Angiotensin Convert Enzyme Comments: [facility] (refer to report for specific site)refer to report for address and phone number [phone] U/L (Normal) Range: 14-82 Comments: Performed at: [address] [id number] Director: John Paul Burrows PhD, Phone: [phone] 53-Gcu-984078:24 Erythrocyte Sed Rate Comments: [facility] Eszznaczx[address] [place], [place], [address] SED RATE 9 mm/h (Normal) Range: 0-30 11-Cvw-25312:06 Microscopic Examination Comments: PATIENT WAS FASTINGPERFORMED BY: [address] [id number] Bacteria Moderate (Abnormal) Mucus Threads Present (Normal) Epithelial Cells (non renal) 0-10 {/hpf} (Normal) Range: 0 - 10 RBC 0-2 {/hpf} (Normal) Range: 0 - 2 WBC 11-30 {/hpf} (Abnormal) Range: 0 - 5 :06 CALCIFEDIOL (46971) Comments: PATIENT WAS FASTINGPERFORMED BY: [address] [id number] Vitamin D, 25-Hydroxy 48.3 ng/mL (Normal) Range: 30.0-100.0 Comments: Vitamin D deficiency has been defined by the [place] of[place]icine and an Endocrine Society practice guideline as alevel of serum 25-OH vitamin D less than 20 ng/mL (1,2).The Endocrine Society went on to further define vitamin Dinsufficiency as a level between 21 and 29 ng/mL (2).1. IOM ([place] of Medicine). 2010. Dietary reference intakes for calcium and D. [place]: The National Academies Press.2. Dung MF, Ken NC, Js-Chad ELMORE, et al. Evaluation, treatment, and prevention of vitamin D deficiency: an Endocrine Society clinical practice guideline. JCEM. 2010; 96(7):1911-30. :06 TSH (THYROID STIMULATING Comments: PATIENT WAS FASTINGPERFORMED BY: [address] [id number] HORMONE) (85614) TSH 3.690 {uIU/mL} (Normal) Range: 0.450-4.500 :06 URINALYSIS (89422) Comments: PATIENT WAS FASTINGPERFORMED BY: [facility]MePin[facility] CenterMbtyue8819 [facility] [id number] Microscopic Examination See below: (Normal) Comments: Microscopic was indicated and was performed. Nitrite, Urine Negative (Normal) Urobilinogen,Semi-Qn 0.2 mg/dL (Normal) Range: 0.2-1.0 Bilirubin Negative (Normal) Occult Blood Negative (Normal) Ketones Negative (Normal) Glucose Negative (Normal) Protein Negative (Normal) WBC Esterase 3+ (Abnormal) Appearance Clear (Normal) Urine-Color Yellow (Normal) pH 7.5 (Normal) Range: 5.0-7.5 Specific [place] 1.017 (Normal) Range: 1.005-1.030 :06 Lipid Panel (05026) Comments: PATIENT WAS FASTINGPERFORMED BY: Methodlin6370 [facility] [id number] LDL/HDL Ratio 1.5 {ratio_units} (Normal) Range: 0.0-3.2 [...] Panel, Comprehensive Comments: PATIENT WAS FASTINGPERFORMED BY: [facility]Vjugir9713 [facility] [id number] (54906) ALT (SGPT) 13 [iU]/L (Normal) Range: 0-32 [...] Glucose, Serum 93 mg/dL (Normal) Range: 65-99 30-Chb-55712:06 CBC WITH MANUAL DIFF Comments: PATIENT WAS FASTINGPERFORMED BY: [facility]6370 [facility] [id number] Information: [id number] (42887) Immature Grans (Abs) 0.0 {x10E3/uL} (Normal) Range: [...] CREATININE RATIO Comments: PATIENT WAS FASTINGPERFORMED BY: [facility]6370 [facility] [id number] (76394) AND (85664) Microalb/Creat Ratio 4.3 {mg/g_creat} (Normal) Range: 0.0-30.0 Microalbumin, Urine 3.4 ug/mL (Normal) Creatinine, Urine 78.2 mg/dL (Normal) 3-Sms-081902:22 ANGTENSIN 1-CONVRT ENZYM Comments: PATIENT NOT FASTINGPERFORMED BY: [facility]6370 [facility] [id number] Information: [id number] (21058) ART 61 U/L (Normal) Range: 14-82 6-Npi-279268:22 SED RATE ERYTHROCYTE (52626) Comments: PATIENT NOT FASTINGPERFORMED BY: [address] [id number] Sedimentation Rate-Westergren 7 mm/h (Normal) Range: 0-40 2-Duw-475327:22 C-REACTIVE PROTEIN (22589) Comments: PATIENT NOT FASTINGPERFORMED BY: [facility] Vjxpel9972 [facility] [id number]; non- emergent till apt C-Reactive Protein, Quant 2.2 mg/L (Normal) Range: 0.0-4.9 69-Dbw-315519:13 Rapid Flu (56261 x 2) Influenza A Ag negative a/b (Normal) 6-Tnt-322954:37 URINE MADAY CULTURE (FARIBA Comments: PATIENT NOT FASTINGPERFORMED BY: [facility] Gzwnmc1052 [facility] [id number] Information: [place] [id number] COL COUNT) (70183) Result 1 MUG (Normal) Comments: Mixed urogenital flora2,000 Colonies/mL Urine Culture,Comprehensive Final report (Normal) 7-Oah-478406:15 Urinalysis, Office (00174) UA - LEUKOCYTE ESTERASE Negative (Normal) UA - NITRITE Negative (Normal) URINE UROBILINGN FARIBA TIMED Normal mg/dL (Normal) UA - PROTEIN Negative mg/dL (Normal) UA - PH 6 (Abnormal) UA - BLOOD Negative (Normal) UA - SPECIFIC GRAVITY 1.020 (Normal) UA - KETONES Negative mg/dL (Normal) UA - BILIRUBIN Negative (Normal) UA - GLUCOSE Negative (Normal) 84-Sbp-81784:42 Comprehensive Metabolic Profil Comments: [facility] Vxmldfydal4906 [place], [address] GAP 4 (Abnormal) Range: 5-15 CO2 30.0 [...] (Normal) Range: 70-110 :42 Lipid Profile Comments: [facility] At[address] [place], [address] ; non-emergent till apt VLDL 35 mg/dL [...] High Risk :42 Vitamin D,25 Hydroxy Comments: [facility] Gusehfnkcc[address] [place], [address] Vitamin D 25-OH 31.7 ng/mL (Normal) Comments: Vitamin D 25(OH) Status Range Deficiency <20 ng/mL (50nmol/L) Insuffciency 20 - 30 ng/mL (50 - 75 nmol/L) Sufficiency 30 - 100 ng/mL (75 - 250 nmol/L) Toxicity >100 ng/mL (>250 nmol/L) 28-Iwc-245562:26 Pap IG (Image Comments: Source.............Cervical;EndocervicalNo. of containers..01 CYTYC Thin Prep VialPATIENT NOT FASTINGPERFORMED BY: =G LabMitra [place] [id number] BY: VICKI Beal Guided) Paul [place] [id number] Note: PAPSMR (Normal) Comments: The Pap smear [...] for malignant neoplasm of the cervixRenetta Medina Foundry Engineer (ASCP) 90-Hrc-207183:26 Thin Prep Pap Comments: Source.............Cervical;EndocervicalNo. of containers..01 CYTYC Thin Prep VialPATIENT NOT FASTINGPERFORMED BY: =G LabCocurtis [place] [id number] BY: VICKI Beal (85756) Paul [place] [id number] Information: [id number] Age Gdln ACOG Testing AGE4 (Normal) Comments: <21 or >65 or no age provided 90-Mss-99846:08 Rapid Strep Test, Office (95051) Comments: neg Rapid Strep Test, Office Negative (Normal) 66-Tbv-71646:26 Microscopic Examination Comments: PATIENT WAS FASTINGPERFORMED BY: [facility] Wnddfn9893 [facility] [id number] Bacteria None seen (Normal) Mucus Threads Present (Normal) Epithelial Cells (non renal) 0-10 {/hpf} (Normal) Range: 0 - 10 RBC 0-2 {/hpf} (Normal) Range: 0 - 2 WBC 0-5 {/hpf} (Normal) Range: 0 - 5 72-Qgu-442346:02 URINE MADAY CULTURE-FARIBA COL Comments: PERFORMED BY: [employer] [facility] [id number] COUNT (49262) Result 1 MUG (Normal) Comments: Mixed urogenital flora10,000-25,000 colony forming units per mL Urine Final report (Normal) Culture,Comprehensive 00-Klt-455912:00 Urinalysis, Office (04751) UA - LEUKOCYTE ESTERASE Negative (Normal) UA - NITRITE Negative (Normal) URINE UROBILINGN FARIBA TIMED Normal mg/dL (Normal) UA - PROTEIN Negative mg/dL (Normal) UA - PH 7.0 (Normal) UA - BLOOD non-hemolyzed trace (Normal) UA - SPECIFIC GRAVITY 1.010 (Normal) UA - KETONES Negative mg/dL (Normal) UA - BILIRUBIN Negative (Normal) UA - GLUCOSE Negative (Normal) 57-Tks-97527:26 METABOLIC PANEL, Comments: PATIENT WAS FASTINGPERFORMED BY: LabCoPraized Media[employer]70 [facility] [id number] Information: [id number] COMPREHENSIVE (67403) ALT (SGPT) 27 [iU]/L (Normal) Range: 0-32 [...] (Normal) Range: 65-99 :26 URINALYSIS, W/ MICRO (23997) Comments: PATIENT WAS FASTINGPERFORMED BY: Methodlin6370 [facility] [id number] Microscopic Examination See below: (Normal) Comments: Microscopic was indicated and was performed. Microscopic Examination MICRON (Normal) Comments: Microscopic follows if indicated. Nitrite, Urine Negative (Normal) Urobilinogen,Semi-Qn 0.2 mg/dL (Normal) Range: 0.0-1.9 Bilirubin Negative (Normal) Occult Blood Negative (Normal) Ketones Negative (Normal) Glucose Negative (Normal) Protein Negative (Normal) WBC Esterase Negative (Normal) Appearance Clear (Normal) Urine-Color Yellow (Normal) pH 7.0 (Normal) Range: 5.0-7.5 Specific [place] 1.023 (Normal) Range: 1.005-1.030 :26 TSH (32496) Comments: PATIENT WAS FASTINGPERFORMED BY: [employer] Achuix6490 [facility] [id number] TSH 3.170 {uIU/mL} (Normal) Range: 0.450-4.500 :26 Vitamin D Hydroxy (39754) Comments: PATIENT WAS FASTINGPERFORMED BY: [employer] SoftwareCoExactTarget Wauiip8427 [facility] [id number] Vitamin D, 25-Hydroxy 34.3 ng/mL (Normal) Range: 30.0-100.0 Comments: Vitamin D deficiency has been defined by the [place] of[place]icine and an Endocrine Society practice guideline as alevel of serum 25-OH vitamin D less than 20 ng/mL (1,2).The Endocrine Society went on to further define vitamin Dinsufficiency as a level between 21 and 29 ng/mL (2).1. IOM ([place] of Medicine). 2010. Dietary reference intakes for calcium and D. [place]: The National AcademSweatdrops, LLC Press.2. Dung MF, Ken MCFARLAND, Diego ELMORE, et al. Evaluation, treatment, and prevention of vitamin D deficiency: an Endocrine Society clinical practice guideline. JCEM. 2010; 96(7):1911-30. :26 LIPID PANEL (88625) Comments: PATIENT WAS FASTINGPERFORMED BY: [employer] [place] [id number]; will review at 04/11 appt LDL/HDL Ratio [...] (Abnormal) Range: 100-199 :31 Vitamin D Hydroxy (95664) Comments: PATIENT WAS FASTINGPERFORMED BY: [employer]6370 [employer] [place] [id number] Vitamin D, 25-Hydroxy 35.2 ng/mL (Normal) Range: 30.0-100.0 Comments: Vitamin D deficiency has been defined by the [place] of[place]icine and an Endocrine Society practice guideline as alevel of serum 25-OH vitamin D less than 20 ng/mL (1,2).The Endocrine Society went on to further define vitamin Dinsufficiency as a level between 21 and 29 ng/mL (2).1. IOM ([place] of [place]). 2010. Dietary reference intakes for calcium and D. [place]: The National Academies Press.2. Dung MF, Ken MCFARLAND, Diego ELMORE, et al. Evaluation, treatment, and prevention of vitamin D deficiency: an Endocrine Society clinical practice guideline. JCEM. 2010; 96(7):1911-30. :31 TSH (05541) Comments: PATIENT WAS FASTINGPERFORMED BY: AD[employer] CR[employer] TECHNOLOGIESPinon Health CenterLnlncx4712 [facility] [id number] TSH 3.100 {uIU/mL} (Normal) Range: 0.450-4.500 :31 MICROALBUMIN: CREATININE RATIO Comments: PATIENT WAS FASTINGPERFORMED BY: [employer] Perokg8253 [facility] [id number] (71138) AND (42637) Microalb/Creat Ratio 2.0 {mg/g_creat} (Normal) Range: 0.0-30.0 Microalbumin, Urine 3.8 ug/mL (Normal) Range: 0.0-17.0 Creatinine, Urine 189.7 mg/dL (Normal) Range: 15.0-278.0 :31 CBC WITH MANUAL DIFF Comments: PATIENT WAS FASTINGPERFORMED BY: [facility] CREDIT TECHNOLOGIESCapital Health System [facility])Fqxygg2359 [facility] [id number] Information: [id number] (60475) Immature Grans (Abs) 0.0 {x10E3/uL} (Normal) Range: [...] 3.77-5.28 WBC 6.9 {x10E3/uL} (Normal) Range: 3.4-10.8 93-Izi-73341:31 METABOLIC PANEL, COMPREHENSIVE Comments: PATIENT WAS FASTINGPERFORMED BY: [facility]CoCapital [facility]Vchvto4124 [facility] [id number] (29865) ALT (SGPT) 11 [iU]/L (Normal) Range: 0-32 [...] Glucose, Serum 96 mg/dL (Normal) Range: 65-99 64-Cgf-19903:31 LIPID PANEL (04412) Comments: PATIENT WAS FASTINGPERFORMED BY: [facility] SystemsUniversity [facility] [id number] LDL/HDL Ratio 1.4 {ratio_units} (Normal) Range: 0.0-3.2 LDL Cholesterol Calc 89 mg/dL (Normal) Range: 0-99 VLDL Cholesterol Gabriel 30 mg/dL (Normal) Range: 5-40 HDL Cholesterol 62 mg/dL (Normal) Comments: According to ATP-III Guidelines, HDL-C >59 mg/dL is considered anegative risk factor for CHD. Triglycerides 149 mg/dL (Normal) Range: 0-149 Cholesterol, Total 181 mg/dL (Normal) Range: 100-199 10-Dwj-215691:14 URINE MADAY CULTURE (FARIBA Comments: PATIENT NOT FASTINGPERFORMED BY: [employer] [facility] [id number] Information: SRC: [id number] COL COUNT) (58541) Result 1 MUG (Normal) Comments: Mixed urogenital zruvs941 Colonies/mL Urine Culture,Comprehensive Final report (Normal) 81-Gim-350291:18 URINE MADAY CULTURE-IDENTIFICATN Comments: PATIENT NOT FASTINGPERFORMED BY: [employer] [facility] [id number] Information: [id number] (98130) Antimicrobial MIHEAD (Normal) Comments: S = Susceptible; [...] mL (Abnormal) Urine Final report Culture,Comprehensive (Abnormal) 64-Oyr-307888:09 Urinalysis, Office (16025) UA - LEUKOCYTE ESTERASE Moderate (Normal) UA - NITRITE Negative (Normal) URINE UROBILINGN FARIBA TIMED Normal mg/dL (Normal) UA - PROTEIN Negative mg/dL (Normal) UA - PH 5.0 (Normal) UA - BLOOD Hemolyzed Large (Normal) UA - SPECIFIC GRAVITY 1.020 (Normal) UA - KETONES Negative mg/dL (Normal) UA - BILIRUBIN Negative (Normal) UA - GLUCOSE Negative (Normal) 68-Dlk-228066:37 URINE MADAY CULTURE-IDENTIFICATN Comments: PATIENT NOT FASTINGPERFORMED BY: [facility]CoCap[facility])Otyjab4289 [facility] [id number] Information: SRC: URINE [id number] (42608) Antimicrobial MIHEAD (Normal) Comments: S = Susceptible; [...] mL (Normal) Urine Final report Culture,Comprehensive (Normal) 64-Jro-980381:10 Urinalysis, Office (09999) UA - BILIRUBIN Negative (Normal) UA - BLOOD Hemolyzed Moderate (Normal) UA - GLUCOSE Negative (Normal) UA - KETONES Negative mg/dL (Normal) UA - LEUKOCYTE ESTERASE Large (Normal) UA - NITRITE Negative (Normal) UA - PH 6.0 (Normal) UA - PROTEIN Negative mg/dL (Normal) UA - SPECIFIC GRAVITY 1.025 (Normal) URINE UROBILINGN FARIBA TIMED Normal mg/dL (Normal) 86-Phq-766007:14 HPV automatic Comments: Source.............Cervical;EndocervicalNo. of containers..01 CYTYC Thin Prep VialPATIENT NOT FASTINGPERFORMED BY: WB [facility] [address] [id number] BY: James Beal (92607) [facility] [address] [id number] Information: [id number] HPV, high-risk Negative Comments: This high-risk HPV [...] are present.V72.31 ; Routine gynecological examinationMichael Carmona Foundry Engineer (ASCP) 59-Bcu-994553:45 FECAL OCCULT HGB ASSAY- tubes sent home (38398) FECAL OCCULT HGB ASSAY, QUAL, 1-3 SIMULTANEOU negative (Normal) 47-Mki-054529:37 CBC WITH MANUAL DIFF Comments: PATIENT WAS FASTINGPERFORMED BY: CB [facility] Kdavxq8535 [facility] [id number] Information: [id number] (21583) Immature Grans (Abs) 0.0 {x10E3/uL} (Normal) Range: [...] 3.77-5.28 WBC 7.5 {x10E3/uL} (Normal) Range: 3.4-10.8 31-Chu-531747:37 METABOLIC PANEL, COMPREHENSIVE Comments: PATIENT WAS FASTINGPERFORMED BY: [facility]CoCap[facility]Zskigs9414 [facility] [id number] (80928) ALT (SGPT) 21 [iU]/L (Normal) Range: 0-32 [...] Glucose, Serum 92 mg/dL (Normal) Range: 65-99 61-Hrc-499650:37 Vitamin D Hydroxy (01080) Comments: PATIENT WAS FASTINGPERFORMED BY: [facility]Gyqizh2011 [facility] [id number] Vitamin D, 25-Hydroxy 35.3 ng/mL (Normal) Range: 30.0-100.0 Comments: Vitamin D deficiency has been defined by the [place] of[place]icine and an Endocrine Society practice guideline as alevel of serum 25-OH vitamin D less than 20 ng/mL (1,2).The Endocrine Society went on to further define vitamin Dinsufficiency as a level between 21 and 29 ng/mL (2).1. IOM ([place] of [place]). 2010. Dietary reference intakes for calcium and D. [place]: The National Academies Press.2. Dung MF, Ken NC, Diego ELMORE, et al. Evaluation, treatment, and prevention of vitamin D deficiency: an Endocrine Society clinical practice guideline. JCEM. 2011 James; 96(7):1911-30. :37 TSH (89902) Comments: PATIENT WAS FASTINGPERFORMED BY: [facility]6370 [facility] [id number] TSH 2.590 {uIU/mL} (Normal) Range: 0.450-4.500 :37 LIPID PANEL (23126) Comments: PATIENT WAS FASTINGPERFORMED BY: [facility]6370 [facility] [id number] LDL/HDL Ratio 2.0 {ratio_units} (Normal) Range: 0.0-3.2 [...] Durant M.D.April 21, 2013 at 3:29:39 PM [id number] Signed RU/RU If you are the referring physician and would like to consult with theradiologist who provided this interpretation, please contact Tricia Camarena at . If this radiologist is unavailable, youwillbe directed to another radiologist to assist. If you are a patient with a question regarding this report, pleasecontactyour referring physician direct ly. Professional Interpretation Provided By: [employer], Phone , These documents contain legally protected [...] on 04/21/13 1529 by Frank DurantTranscribed on 1536 by ITS IMPORTSign by Frank Durant on 04/21/13 1538 Sign by: Frank Durant 66-Whh-44777:18 CBCMD ANC 3.5 3/uL (Normal) Range: 2.0-7.7 [...] CHOL 194 mg/dL (Normal) Comments: <200 mg/dL Chrbhxqds325-808 mg/dL Borderline>240 mg/dL High Risk :18 TSH 2.02 {uIU/mL} (Normal) Range: 0.358-3.74 :18 VITD 56.0 ng/mL (Normal) Comments: Vitamin D 25(OH) Status RangeDeficiency <20 ng/mL (50nmol/L)Insufficiency 20 - 30 ng/mL (50 - 75 nmol/L)Sufficiency 30 - 100 ng/mL (75 - 250 nm ol/L)Toxicity >100 ng/mL (250 nmol/L)Effective 201209-Sep-201216-Uma-344539:39 Aerobic Bacterial Culture Comments: PERFORMED BY: [facility]Co[facility]Yghwoj1974 [facility] [id number] Information: SRC:CH RIGHT CHEST Result 1 NG36 [...] D deficiency has been defined by the [place] of[place]icine and an Endocrine Society practice guideline as alevel of serum 25-OH vitamin D less than 20 ng/mL (1,2).The Endocrine Society went on to further define vitamin Dinsufficiency as a level between 21 and 29 ng/mL (2).1. IOM ([place] of [place]). 2010. Dietary reference intakes for calcium and D. [place]: The National Academies Press.2. Dung MF, Ken NC, Diego ELMORE, et al. Evaluation, treatment, and prevention of vitamin D deficiency: an Endocrine Society clinical practice guideline. JCEM. 2011 Feb; 96(7): 1911-30.Performed at: - [facility] [id number] Director: Amari Barnett PhD, Phone: [phone] 4-Cin-166628:36 MEAGHAN SCHWARTZ DIGITAL & CAD Radiology Report See Note [...] Khan M.D.April 05, 2012 at 3:13:08 PM [id number] Signed GP/GP If you are the referring physician and would like to consult with theradiologist who provided this interpretation, please contact Tricia Butler at [phone]. If this radiologist is unavailable, youwill be directed to another radiologist to assist. If you are a patient with a questi on regarding this report, pleasecontactyour referring physician directly. Professional Interpretation Provided By: [facility], Phone , These documents contain legally prot [...] 04/05/12 1519 Sign by: Cruzito Khan MD 24-Vkb-826060:06 HEPATOBILLIARY IMG W/PHARM INT Radiology Report See [...] Cholecystokinin (0.02 ug/kg) was administered intravenously over z10-wrpfni period. T he post CCK gallbladder ejection fraction rzhogjmajmor88 minutes following Cholecystokinin administration was noted to [...] cystic duct syndrome) to be low. (David Cotter,Journal of Nuclear Medicine 32:1695, 1991). Signed: Frank Bustos M.D.March 31, 2012 at 9:50:05 AM [id number] Signed RB/RB If you are the referring physician and would like to consult with theradiologist who provided this interpretati on, please contact Tricia Hood at [phone]. If this radiologist is unavailable, you will bedirected to another radiologist to assist. If you are a patient with a question regarding this report , pleasecontactyour referring physician directly. Professional Interpretation Provided By: [facility], Phone , These documents contain legally protected [...] 03/31/12 1158 Sign by: Frank Bustos DO 03-Xuo-08484:09 GALLBLADDER Comments: f/u 03/19/12 Radiology Report See [...] size of the right kidney. The right qfdmmskbjftdzu59.4 cm. Normal renal cortex. The right cortex measures 1.5 cm. Thereisa 7 mm x 6 mm x 5 mm cyst in t he upper pole. There is no righthydronephrosis. IMPRESSION:Mild dilatation of the common bile duct. Signed:Cruzito Khan M.D.March 18, 2012 at 10:37:07 AM [id number] Signed GP/G P If you are the referring physician and would like to consult with theradiologist who provided this interpretation, please contact Tricia Butler at [phone]. If this radiologist is unavai jasonle, youwill be directed to another radiologist to [...] CMP, LIPID, CBCMD, UAC 10:19 Range: 25-115 57-Crk-139138:19 CBCMD Comments: DR VIERA ORDERED TSH, CMP, [...] 4.2-5.4 WBC 7.1 K/mm3 (Normal) Range: 4.4-11.0 23-Kam-506956:19 CMP Comments: DR VIERA ORDERED TSH, CMP, [...] (Normal) UCLAR CLEAR (Normal) UCOL YELLOW (Normal) 29-Nks-644614:39 Urinalysis, Office (45265) UA - BILIRUBIN Negative (Normal) UA - BLOOD Negative (Normal) UA - GLUCOSE Negative (Normal) UA - KETONES Negative mg/dL (Normal) UA - LEUKOCYTE ESTERASE Trace (Normal) UA - NITRITE Negative (Normal) UA - PH 6.0 (Normal) UA - PROTEIN Negative mg/dL (Normal) UA - SPECIFIC GRAVITY 1.015 (Normal) URINE UROBILINGN FARIBA Normal mg/dL (Normal) TIMED 16-Cjc-368998:02 CUT See Note (Normal) Comments: Normal throat bhavesh isolated. No beta-hemolyticstreptococcus isolated. 42-Rkz-542439:37 Rapid Strep Test, Office (31223) Rapid Strep Test, Office Negative (Normal) :58 [...] :58 TSH 1.62 {uIU/mL} (Normal) Range: 0.358-3.74 :00 CHEST WITH CONTRAST Radiology Report See Note [...] Sign by : Shannon RAO,Marilia 27-May-2011 ART 33277 81 U/L (Abnormal) Range: 12-68 12:07 09-Gbq-878946:07 XOCHILT DIR SEMI-QL Comments: appt 06/03/11 XOCHILT DIRECT 33 AU/mL (Normal) 39-Rqq-462309:07 ASO 6031 94.6 {IU/mL} (Normal) Range: 0.0-200.0 Comments: Performed at: [address] [id number] Director: Leana Villar MD, Phone: [phone] 69-Loa-009527:07 C-REACTIVE PROT 16.20 mg/L (Abnormal) Range: 0.0-3.0 Comments: C-Reactive Protein (CRP) provides useful information for thediagnosis, therapy and monitoring of inflammatory processesand associated diseases. For the evaluation of Relative Riskfor Cardiovascular Dise ase, a High Sensitivity CRP (HSCRP)should be ordered. 25-Asc-443637:07 CBCD,SMEAR DIFF RED CELL MORPH SeeNote {NORMAL} [...] 4.2-5.4 WBC 8.0 K/mm3 (Normal) Range: 4.4-11.0 51-Obc-226110:07 COMP METABOLIC GAP 8 (Normal) Range: 5-15 [...] mg/dL suggests IMPAIRED HOMEOSTASIS per A.D.A. criteria. 05-Ctz-725138:07 COMPLETE UA MUCUS, URINE 0 SEEN {/hpf} [...] :07 TSH 2.21 {uIU/mL} (Normal) Range: 0.358-3.74 42-Jfh-314818:20 CHEST, PA AND LATERAL Radiology Report See [...] throat bhavesh isolated. No beta-hemolyticstreptococcus isolated. 8:38 73-Ygr-800455:34 PPD (36321) SKIN TEST INTRADERMAL TB negative (Normal) 81-Zyo-474476:23 LQDPAP [id number] PAPSMR Comment (Normal) Comments: The Pap smear [...] no HPV testing was performed. .Performed at: [address] [id number] Director: Young Pope MD, Phone: [phone] COMM . (Normal) DIAGN Comment (Normal) Comments: NEGATIVE FOR INTRAEPITHELIAL LESION AND MALIGNANCY.CELLULAR CHANGES ASSOCIATED WITH ATROPHY ARE PRESENT.THIS SPECIMEN WAS RESCREENED PART OF OUR MOLDING ASSOCIATE PROGRAM.Satisfactory for evaluation. Endocervical component may not bedistinguished in cases of atrophy.Shayla Wright, Foundry Engineer (ASCP)Zahraa Orr, Supervisory Foundry Engineer (ASCP)This liquid based ThinPrep(R) pap test was screened withthe use of an image guided system. 28-Zyn-724850:41 BILAT SCRN DIGITAL & CAD Radiology Report [...] 02/26/11 1333 Sign by: Cruzito Khan MD 02-Bel-330034:37 DEXA BONE DENSITY STUDY (HP) Radiology Report [...] (-0.1) / Z-score (0.5) On the lateral sash assembler film, there is a grade 2 anterior [...] Foundation [email or web address] Dictated on 02/26/11 1146 by Greg Khan MDeleTranscribed on 02/26/11 1338 by ITS IMPORTSign by Regi Khan MD on 02/26/11 1339 Sign by: Cruzito Khan MD 44-Gwm-31373:19 CBCD,SMEAR DIFF PLT EST SeeNote (Normal) Comments: [...] 08/19/101648 by BATSHEVA GEORGETranscribed on 1648 by INTERFACE,MCKESSONSign by BATSHEVA GEORGE on 08/20/10 0821 Sign [...] CHOL 206 mg/dL (Abnormal) Comments: <200 mg/dL Duspurtwv322-279 mg/dL Borderline>240 mg/dL High Risk 20-Hgu-72333:26 TSH 1.24 {uIU/mL} (Normal) Range: 0.358-3.74 56-Kfk-442372:19 BILAT SCRN DIGITAL & CAD Radiology Report See Note (Normal) Comments: Exam Number: [id number] DIGITAL BILATERAL MAMMOGRAM Digital oblique and craniocaudal [...] been no change since priorexamination. Routine ankit ual mammographic followup is suggested. IMPRESSION1. Scattered bilateral microcalcifications. There has been no changesince prior examination.2. Routine annual mammographic followup is suggested.3. Benign. BIRADS Category 2. A letter regarding the results has been sent to the patient. This interpretation was rendered by a radiologist certified under theMammography Quality Standards Act of 1992 (M QSA). The mammograms werealso examined with computer-aided detection software (Image[employer]ra[employer]cell, [employer] 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 .Performed At: [address] [id number] PAPSMR Comment (Normal) Comments: The Pap smear is a screening test designed to aid in thedetection of premalignant and malignant conditions of theuterine cervix. It is not a diagnostic procedure andshould not be used as the sole means of detecting cervicalcancer. Both false-positive and false-negative reports dooccur. . PERFORM Comment (Normal) Comments: Kimberley Borges, Foundry Engineer (ASCP) SIGN Comment (Normal) Comments: Wendi Elaine MD, Pathologist 8-Mwh-886315:22 BILAT SCRN DIGITAL & CAD Radiology Report See Note (Normal) Comments: Exam Number: [id number] MAMMOGRAM, BILATERAL SCREENING DIGITAL AND CAD HISTORYRoutine [...] werealso examined with computer- aided detection software (ImageP[employer]cell, [employer], [employer] Reported By: SEAN AMAYA M.D. 1-Jrc-263965:21 DEXA BONE DENSITY STUDY (HP) Radiology Report See Note (Normal) Comments: Exam Number: [id number] BONE DENSITOMETRY HISTORYPostmenopausal. TECHNIQUE Bone densitometry of the lumbar spine and left hip was performed. Thebest criteria for evaluation of osteoporosis is the T- value, whichrepresents the comparison of the patient's bone mass to an expectedpeak bone mass. For most patients, the mean T-value of L1 through L4is used to evaluate the lumbar spine. Based on the [place] WorldHealth Organization classifications, the hip is evaluated by utilizingthe lower of the T-value of the total hip or the T-value of thefemoral neck. FINDINGSIn this patient, the mean T-value o f L1 through L4 is 0.4 which isnormal. Bone mineral density is measured at 0.1% greater than [id number]. Digital lateral view for evaluation of vertebral [...] mg/dL (Normal) Range: 1.5-2.2 :08 T3, FREE 55915 2.9 pg/mL (Normal) Range: 2.3-4.2 Comments: Performed At: [address] [id number] :08 T4 FREE,DIRECT 1.0 ng/dL (Normal) Range: 0.89-1.76 :08 TSH 1.40 {uIU/mL} (Normal) Range: 0.34-4.82 67-Ewo-998672:59 LOWER EXT/JT ONLY (ROUTINE) Radiology Report See Note (Normal) Comments: Exam Number: [id number] MRI OF THE RIGHT KNEE STATEMENTRight knee [...] medial meniscus. Reported By: ABDULAZIZ HENRY M.D. 89-Xyn-599699:21 KNEE,4 OR MORE VIEWS (MT) Radiology Report See Note (Normal) Comments: Exam Number: [id number] RIGHT KNEE, 4 VIEWS REASON FOR EXAMINATIONRight [...] throat bhavesh isolated. No beta-hemolyticstreptococcus isolated. :30 75-Gny-732862:20 Rapid Strep Test, Office (03468) Comments: neg Rapid Strep Test, Office Negative [...] Report See Note (Normal) Comments: Exam Number: [id number] COMPUTED TOMOGRAPHY OF THE ABDOMEN WITH ORAL AND IV CONTRAST INDICATIONA 57-year-old female with epigastric pain, nausea. COMPARISONNone. TECHNIQUEContiguous transaxial images wer e obtained from the lung bases to thelevel of S1 following the uneventful administration of 100 cc Otxouv111 intravenously. Oral contrast was also administered. REPORTLimited [...] T PROT 6.4 g/dL (Normal) Range: 6.4-8.2 12-Kgr-45407:00 ESR Comments: CALL RESULTS TO DR MAYORGA The date and/or time of collection was not indicated on therequisition as required by state and federal law. The dateof receipt of the specimen was used as the collection dateif not supplied. SED RATE 37 mm/h (Abnormal) Range: 0-30 91-Bxn-51851:13 Urinalysis, Office (91712) UA - LEUKOCYTE ESTERASE Negative (Normal) UA [...] :57 TSH 0.83 {uIU/mL} (Normal) Range: 0.34-4.82 82-Ykq-916406:13 Urinalysis, Office (40913) Comments: done-jjp UA - BILIRUBIN Negative (Normal) UA - BLOOD Negative (Normal) UA - GLUCOSE Negative (Normal) UA - KETONES Negative mg/dL (Normal) UA - LEUKOCYTE ESTERASE Negative (Normal) UA - NITRITE Negative (Normal) UA - PH 5.0 (Normal) UA - PROTEIN Negative mg/dL (Normal) UA - SPECIFIC GRAVITY 1.005 (Normal) URINE UROBILINGN FARIBA TIMED Normal mg/dL (Normal) 8-Biz-647864:44 Urinalysis, Office (92571) Comments: done UA - BLOOD Hemolyzed Large (Normal) UA - LEUKOCYTE ESTERASE Moderate (Normal) UA - NITRITE Negative (Normal) UA - PH 6.5 (Normal) UA - PROTEIN Negative mg/dL (Normal) UA - SPECIFIC GRAVITY 1.005 (Normal) URINE UROBILINGN FARIBA TIMED Normal mg/dL (Normal) UA - BILIRUBIN Negative (Normal) UA - GLUCOSE Negative (Normal) UA - KETONES Negative mg/dL (Normal) 3-Ubh-262979:30 CULTURE, URINE URINE CULTURE See Note {CFU/mL} [...] 0.2 EU/dl (Normal) Range: 0.2 - 1.0 82-Xmq-09108:54 TSH 1.28 {uIU/mL} (Normal) Range: 0.34-4.82 Plan of Care Name Dates Details Instructions Nonsmoker : Eprescribed prescriptions (G8553) Indication: Nonsmoker [...] neuritis or radiculitis, unspecified Planned Observations TSH (40045)Indication: Acquired hypothyroidism On: :35 Request URINALYSIS, W/ MICRO (47128)Indication: Essential hypertension On: :34 Request MICROALBUMIN: CREATININE RATIO (31858) AND (63156)Indication: Essential hypertension On: :34 Request METABOLIC PANEL, COMPREHENSIVE (78933)Indication: Essential hypertension On: :34 Request CBC W/AUTO DIFF WBC (09577)Indication: Essential hypertension On: :34 Request LIPOPROTEIN, BLD, BY NMR (41010)Indication: Other and unspecified hyperlipidemia On: :34 Request CALCIFIDIOL (97681) VIT D 25Indication: Vitamin D deficiency, unspecified On: :34 Request URINE MADAY CULTURE-IDENTIFICATN (13244)Indication: URINARY TRACT INFECTION, SITE NOT SPECIFIED On: 25-Lqh-865379:53 Request Comments: post treatment culture Stool Guiac Test, Office (Medicare) (G0107)Indication: Hypercholesteremia On: 4-Ojs-552116:04 Request URINALYSIS, W/ MICRO (73840)Indication: Hematuria On: 95-Rve-935808:41 Request Vitamin D Hydroxy (84502)Indication: Vitamin D deficiency, unspecified On: :40 Request CBC W/AUTO DIFF WBC (25965)Indication: Essential hypertension On: :40 Request METABOLIC PANEL, COMPREHENSIVE (91231)Indication: Essential hypertension On: :39 Request LIPID PANEL (07033)Indication: Hypercholesteremia On: :39 Request TSH (65676)Indication: Acquired hypothyroidism On: 49-Kok-773079:39 Request Vitamin D Hydroxy (97061)Indication: Vitamin D deficiency, unspecified On: 33-Ctl-418692:15 Request METABOLIC PANEL, COMPREHENSIVE (70832)Indication: Essential hypertension On: 11-Omd-384335:14 Request LIPID PANEL (65814)Indication: Other and unspecified hyperlipidemia On: 37-Uiq-607332:14 Request FECAL OCCULT- Tubes sent home (15375)Indication: Encounter for screening for malignant neoplasm of cervix On: 47-Isi-437171:09 Request Thin prep Pap (51234)Indication: Well woman exam On: 09-Onk-379842:46 Request LIPID PANEL (93842)Indication: Hypercholesteremia On: 88-Fey-236223:23 Request MADAY CULTURE-OTHER (72104)Indication: Cellulitis On: :22 Request METABOLIC PANEL, COMPREHENSIVE (70824)Indication: Essential hypertension On: :04 Request CBC WITH MANUAL DIFF (64342)Indication: Essential hypertension On: :04 Request Vitamin D Hydroxy (36152)Indication: Vitamin D deficiency, unspecified On: :04 Request TSH (84377)Indication: Acquired hypothyroidism On: 18-Yyw-973618:04 Request LIPID PANEL (76605)Indication: Other and unspecified hyperlipidemia On: 10-Fuc-818459:04 Request Vitamin D Hydroxy (14817)Indication: Vitamin D deficiency, unspecified On: :25 Request METABOLIC PANEL, COMPREHENSIVE (00500)Indication: Essential hypertension On: :25 Request LIPID PANEL (53676)Indication: Other and unspecified hyperlipidemia On: : Request Amylase (16381)Indication: Abdominal pain, acute, right upper quadrant On: 06-Kji-431837:05 Request Lipase (86480)Indication: Abdominal pain, acute, right upper quadrant On: :05 Request THROAT CULTURE (32162)Indication: ACUTE PHARYNGITIS (462.) On: 74-Vba-899296:37 Request CALCIFEDIOL (94098)Indication: Vitamin D deficiency, unspecified On: :35 Request URINALYSIS, W/ MICRO (78918)Indication: Essential hypertension On: 32-Ujb-715425:50 Request LIPID PANEL (96196)Indication: Other and unspecified hyperlipidemia On: 47-Otq-334641:49 Request CBC WITH MANUAL DIFF (47335)Indication: Essential hypertension On: 43-Gfs-522027:49 Request METABOLIC PANEL, COMPREHENSIVE (85193)Indication: Essential hypertension On: 80-Ika-837008:49 Request TSH (15765)Indication: Acquired hypothyroidism On: 15-Nve-171142:49 Request SKIN TEST INTRADERMAL TB (81908)Indication: Erythema nodosum On: 15-Zyy-301117:49 Request Comments: Site- Left forearm MADAY CULTURE-OTHER (76873)Indication: Erythema nodosum On: 09-Ryr-071405:37 Request ANTISTREPTOLYSIN O-TITER (04933)Indication: Erythema nodosum On: 24-Xtx-027508:33 Request TSH (34252)Indication: Fatigue On: 80-Did-114253:22 Request URINALYSIS, W/ MICRO (85482)Indication: Erythema nodosum On: 97-Czx-972456:20 Request C-REACTIVE PROTEIN (22616)Indication: Erythema nodosum On: 40-Agb-128994:20 Request SED RATE ERYTHROCYTE (06307)Indication: Erythema nodosum On: 38-Wvx-697483:20 Request METABOLIC PANEL, COMPREHENSIVE (72397)Indication: Erythema nodosum On: :20 Request CBC WITH MANUAL DIFF (05606)Indication: Erythema nodosum On: :20 Request XOCHILT (ANTINUCLEAR ANTIBODY) (23684)Indication: Erythema nodosum On: :19 Request RHEUMATOID FACTOR-QUANT (72810)Indication: Erythema nodosum On: :19 Request Thin prep Pap (16110)Indication: Well woman exam On: :17 Request URINALYSIS, W/ MICRO (91100)Indication: Essential hypertension On: :07 Request CBC WITH MANUAL DIFF (29256)Indication: Essential hypertension On: :07 Request LIPID PANEL (72931)Indication: Other and unspecified hyperlipidemia On: :06 Request TSH (67274)Indication: Acquired hypothyroidism On: :06 Request METABOLIC PANEL, COMPREHENSIVE (84742)Indication: Essential hypertension On: :06 Request METABOLIC PANEL, COMPREHENSIVE (70313)Indication: Essential hypertension On: 98-Ylr-852733:53 Request TSH (16342)Indication: Acquired hypothyroidism On: 51-Plc-507167:53 Request LIPID PANEL (96912)Indication: Other and unspecified hyperlipidemia On: 72-Vlv-592588:53 Request LIPID PANEL (16053)Indication: Other and unspecified hyperlipidemia On: 59-Ldx-395589:31 Request METABOLIC PANEL, COMPREHENSIVE (77903)Indication: Essential hypertension On: 88-Huv-813468:30 Request CBC WITH MANUAL DIFF (06177)Indication: Essential hypertension On: 11-Hpg-855136:30 Request TSH (09826)Indication: Acquired hypothyroidism On: 49-Eqy-328522:30 Request MADAY CULTURE-OTHER (80470)Indication: Neoplasm of uncertain behavior of skin On: 77-Gok-429355:26 Request Thin prep Pap (62039)Indication: Well woman exam On: 76-Nws-295021:00 Request Magnesium (76749)Indication: Palpitations On: 16-Hgo-353771:12 Request T4, FREE (THYROXINE) (64388)Indication: Palpitations On: 74-Ekt-387342:12 Request T3, FREE (TRIDOTHYRONINE) (46497)Indication: Palpitations On: 78-Wkj-847028:11 Request CBC WITH MANUAL DIFF (92651)Indication: Essential hypertension On: 72-Mcc-420883:11 Request METABOLIC PANEL, COMPREHENSIVE (18500)Indication: Essential hypertension On: 34-Odx-347299:10 Request TSH (03560)Indication: Acquired hypothyroidism On: 48-Khw-507246:10 Request LIPID PANEL (15198)Indication: Other and unspecified hyperlipidemia On: 14-Dej-216340:10 Request METABOLIC PANEL, COMPREHENSIVE (91217)Indication: Essential hypertension On: 02-Mxy-149031:06 Request URINALYSIS W/O MICRO (82736)Indication: Essential hypertension On: 27-Egw-536859:05 Request TSH (29241)Indication: Acquired hypothyroidism On: 23-Zcu-633785:05 Request HEPATIC FUNCTION PANEL (12008)Indication: Other and unspecified hyperlipidemia On: 21-Zvo-213834:05 Request LIPID PANEL (18721)Indication: Other and unspecified hyperlipidemia On: 62-Mhu-893646:05 Request FERRITIN (66232)Indication: Other and unspecified hyperlipidemia On: 10-Dix-378088:53 Request HEPATIC FUNCTION PANEL (83463)Indication: Other and unspecified hyperlipidemia On: 66-Vej-287339:53 Request LIPID PANEL (55828)Indication: Other and unspecified hyperlipidemia On: 51-Nlk-478094:53 Request MADAY CULTURE-OTHER (36288)Indication: ACUTE PHARYNGITIS (462.) On: 91-Jwj-568339:20 Request CBC WITH MANUAL DIFF (90625)Indication: Essential hypertension On: 19-Vty-512238:26 Request LIPID PANEL (42251)Indication: Other and unspecified hyperlipidemia On: 42-Oey-251212:22 Request METABOLIC PANEL, COMPREHENSIVE (79768)Indication: Hyponatremia On: 37-Xiq-048862:22 Request TSH (14063)Indication: Acquired hypothyroidism On: 27-Nxk-609134:22 Request METABOLIC PANEL, COMPREHENSIVE (26109)Indication: Hyponatremia On: 88-Hcz-665049:00 Request CBC WITH MANUAL DIFF (42177)Indication: Anemia, unspecified On: 30-Qfn-266886:00 Request SED RATE ERYTHROCYTE (00057)Indication: Epigastric pain On: 99-Uyv-420805:03 Request C-REACTIVE PROTEIN (80759)Indication: Epigastric pain On: 53-Uwc-950332:03 Request METABOLIC PANEL, COMPREHENSIVE (83970)Indication: Epigastric pain On: 58-Ryd-960983:02 Request CBC WITH MANUAL DIFF (65061)Indication: Epigastric pain On: :02 Request METABOLIC PANEL, COMPREHENSIVE (97941)Indication: Essential hypertension On: 88-Yvl-698761:49 Request TSH (44777)Indication: Acquired hypothyroidism On: :42 Request LIPID PANEL (67760)Indication: Other and unspecified hyperlipidemia On: :42 Request URINE MADAY CULTURE (FARIBA COL COUNT) (14941)Indication: Dysuria On: 2-Dus-359179:04 Request LIPID PANEL (55316)Indication: Other and unspecified hyperlipidemia On: 8-Lga-131762:05 Request MICROALBUMIN URINE QUANT (33622)Indication: Essential hypertension On: 6-Fvv-034240:05 Request TSH (19523)Indication: Acquired hypothyroidism On: 1-Xql-813645:04 Request URINALYSIS W/O MICRO (74541)Indication: Essential hypertension On: 6-Cvj-115705:04 Request METABOLIC PANEL, COMPREHENSIVE (07775)Indication: Essential hypertension On: 8-Ioa-582810:04 Request CBC WITH MANUAL DIFF (78118)Indication: Essential hypertension On: 5-Qax-487353:04 Request Planned Encounters Medical; 6 Month FU - On: 12-Jan-2019 9:45 [facility] Windy Mayorga DO, DO, Kathleen Planned Procedures ELECTROCARDIOGRAM, COMPLETE (ECG) On: 14-Jul-2018 Intent (58908)By: Windy Mayorga DO Comments: nsr no acute chg - poor R wave progression and nonspecific st flattening Windy Mayorga DO Flu Vaccine (Quadrivalent) 18376Vy: On: 11-Jun-2018 Intent Visit, Nurse Comments: Lot #:[id number] date: 2-09-43Enshtx given:0.5mlRoute: IMSite given:L DltdGiven by: Melissa and ABN signed Fluarix Ultrasound - Breast - LeftBy: Concetta On: 04-Sep-2017 Intent DO, Windy Jeffries DO [facility] BEHAVIORAL COUNSELING On: 29-Jun-2017 Intent FOR OBESITY, 15 MINUTES (G0447)By: Windy Mayorga DO, DO, Kathleen DEXA SCAN AXIAL SKELETON (67707)By: On: 29-Jun-2017 Intent Windy Mayorga DO, DO, Windy SCREENING DIGITAL TOMOSYNTHESIS OF On: 29-Jun-2017 Intent BREAST (07516)By: Windy Mayorga DO, DO, Windy ELECTROCARDIOGRAM, COMPLETE (ECG) On: 29-Jun-2017 Intent (80851)By: Windy Mayorga DO Comments: nsr no acute chg Concetta DOWindy Flu Vaccine (Quadrivalent) 24168Ea: On: 17-Jun-2017 Intent Visit, Nurse Comments: Lot #[id number]/15/18ite-L dltd, IMDose prefilled syringegiven by:DAGMAR Mathis and DANNIELLE signed MAMMOGRAM, SCREENING, BOTH BREAST On: 16-May-2016 Intent (26654)By: Windy Mayorga DO, DO, Kathleen Flu Vaccine (Quadrivalent) 20349Mc: On: 07-May-2016 Intent Windy Mayorga DO Concetta DO, Comments: Lot:[id number]:02/27/17Dose:0.5mLRoute:IMSite:L DltdGiven By:GENTRY signed Windy ELECTROCARDIOGRAM, COMPLETE (ECG) On: 07-May-2016 Intent (03461)By: Windy Mayorga DO Comments: nsr no acute chg Concetta DO Windy Aerosol Treatment (28007)By: Terri On: 26-Mar-2016 Intent Lucretia ARNOLD Radiology - Chest- PA and LatBy: On: 03-Dec-2015 Intent Fast DO, Raya A Aerosol Treatment (93399)By: Terri On: 12-Nov-2015 Intent CLAYTON, Lucretia Flu Vaccine (Quadrivalent) 07591Jd: On: 07-Jun-2015 Intent Visit, Nurse Comments: Lot #[id number]-L dltd, IMDose prefilled syringegiven by:LEON MathisNVIS and ABN signed Pap Smear, Medicare (Q0091)By: Juve On: 11-Apr-2015 Raya Jaimes DO MAMMOGRAM, SCREENING, BOTH BREAST On: 11-Apr-2015 Intent (70346)By: Raya Viera DO Aerosol Treatment (86385)By: Terri On: 09-Apr-2015 Intent Lucretia ARNOLD Radiology - Sacrum/CoccyxBy: Juve On: 04-Oct-2014 Raya Jaimes DO ADMINISTRATION OF INFLUENZA VIRUS On: 09-Jun-2014 Intent VACCINE (G0008)By: Visit, Nurse FLU VAC, SPLIT, >3 YEARS, INTRAMUSC On: 09-Jun-2014 Intent (11935)By: Raya Viera DO Comments: Lot:[id number]:02/27/15Dose:0.5mLRoute:IMSite:L DltdGiven By:GENTRY signed MAMMOGRAM, SCREENING, BOTH BREAST On: 29-Mar-2014 Intent (06033)By: Raya Viera DO Comments: mar EKG (03808)By: Raya Viera DO On: 29-Mar-2014 Intent Comments: ekg showed normal sinus rhythym, normal axis, no acute st/t wave changes no change in the previous t wave inversions Eprescribed prescriptions (G8553)By: On: 13-Jan-2014 Intent Chucky GROVE, Liat Eprescribed prescriptions (G8553)By: On: 26-Oct-2013 Intent ConcettaWindy phipps DO Concetta DO, Windy Radiology - Knee - RightBy: Concetta On: 26-Oct-2013 Intent Windy COLEY Concetta DO, Windy Eprescribed prescriptions (G8553)By: On: 17-Aug-2013 Intent Renetta Hough LPN FLU VAC, SPLIT, >3 YEARS, INTRAMUSC On: 19-Jul-2013 Intent (98953)By: Raya Viera DO Comments: lot [id number] 2014site/route L olga, IMamt 0.5mlVIS and ABN signed when applicableChelsMOHINDER sharif ADMINISTRATION OF INFLUENZA VIRUS On: 19-Jul-2013 Intent VACCINE (G0008)By: Raya Viera DO Eprescribed prescriptions (G8553)By: On: 19-Jul-2013 Intent Jennifer Coronado Pulse Oximetry (22098)By: Randall On: 22-Apr-2013 Intent THALIA EKG (89882)By: Jennifer Coronado On: 28-Jan-2013 Intent Comments: ekg showed normal sinus rhythym, normal axis, no acute st/t wave changes MAMMOGRAM, SCREENING, BOTH BREASTS On: 28-Jan-2013 Intent (83423)By: Raya Viera DO Comments: end march Eprescribed prescriptions (G8553)By: On: 09-Sep-2012 Intent Windy Mayorga DO Concetta DO, Windy IMMUNIZ ADMNIN, 1 VAC, SNGL/COMBO On: 26-Jul-2012 Intent (25761)By: Raya Viera DO Eprescribed prescriptions (G8553)By: On: 26-Jul-2012 Intent Jennifer Coronado PNEUM VAC ADLT/IMUMNOSPR, SBC/INTRM On: 26-Jul-2012 Intent (63468)By: Raya Viera DO Comments: Lot:[id number]:Dose:0.5mLRoute:IMSite:shiva [place] By:GENTRY signed Breast Screening - BilateralBy: Juve On: 29-Mar-2012 Intent Raya COLEY Nuclear Medicine - HIDA w/CPKBy: On: 19-Mar-2012 Intent Donna Locke CNP Ultrasound - GallbladderBy: Chucky On: 15-Mar-2012 Intent Donna GROVE Eprescribed prescriptions (G8553)By: On: 19-Dec-2011 Intent Concetta DOWindy Concetta DO, Windy EKG (08197)By: Raya Viera DO On: 27-Oct-2011 Intent Comments: ekg showed normal sinus rhythym, normal axis, no acute st/t wave changes nonspecific old t wave inversion CT - ChestBy: Raya Viera DO On: 03-Jun-2011 Intent Comments: pe protocol-not stat but sometime this week Spirometry (92148)By: Juve COLEY, On: 26-May-2011 Intent Raya Arechiga Comments: good effort and curve normal Radiology - Chest- PA and LatBy: On: 26-May-2011 Intent Raya Viera DO DRAIN/INJECT, JOINT/BURSA (88093)By: On: 02-May-2011 Intent Windy Mayorga DO, DO, Comments: 2 cc marcaine and 1 cc kenolog Windy TDAP VACCINE >7 IM (08016)By: Juve On: 11-Apr-2011 Intent Raya COLEY Comments: Lot #: [id number] date: 05/13Amount given: 0.5 mlRoute: IMSite given: left deltoidGiven by: Hawk Pardo RN EKG (07793)By: Jennifer Coronado On: 17-Feb-2011 Intent Comments: ekg showed normal sinus rhythym, normal axis, no acute st/t wave changes nonspecific t wave inversion anteriorly- not changed- Eprescribed prescriptions (G8553)By: On: 17-Feb-2011 Intent Raya Viera DO DXA, BONE DENSITY, AXIAL SKELETON On: 17-Feb-2011 Intent (85118)By: Raya Viera DO MAMMOGRAM, SCREENING, BOTH BREASTS On: 17-Feb-2011 Intent (31565)By: Raya Viera DO Aerosol Treatment (59824)By: Juve On: 14-Aug-2010 Intent Raya COLEY Spirometry (37667)By: Cliff, On: 14-Aug-2010 Intent Comments: good effort and curve -decrease small airways Radiology - Chest- PA and LatBy: On: 14-Aug-2010 Intent Raya Viera DO Pulse Oximetry (65464)By: Cliff, On: 14-Aug-2010 Intent Comments: 96% Pulse Oximetry (25618)By: Chucky GROVE, On: 31-Jul-2010 Intent Liat Aerosol Treatment (32748)By: Chucky On: 31-Jul-2010 Intent Donna GROVE Pulse Oximetry (28716)By: Chucky GROVE On: 15-Jul-2010 Intent Liat Aerosol Treatment (56439)By: Chucky On: 15-Jul-2010 Intent MAINE Liat ELECTROCARDIOGRAM, COMPLETE (ECG) On: 24-Dec-2009 Intent (42420)By: Chucky GROVE Donna Hilliard MAMMOGRAM, SCREENING, BOTH BREASTS On: 25-Jun-2009 Intent (95874)By: Raya Viera DO Wax CurettesBy: Chucky GROVE Donna Hilliard On: 07-Jun-2009 Intent Ear Irrigation (45178)By: Chucky On: 07-Jun-2009 Intent Donna GROVE FLU VAC, SPLIT, >3 YEARS, INTRAMUSC On: 05-Jun-2009 Intent (97752)By: Tuyet Camejo IMMUNIZ ADMNIN, 1 VAC, SNGL/COMBO On: 05-Jun-2009 Intent (46962)By: Tuyet Camejo Comments: Lot #[id number]-left deltoidgiven by:CDH DRAIN SKIN ABSCESS, SIMPLE/SINGLE On: 13-Nov-2008 Intent (26230)By: Chucky GROVEDonna Holter Moniter (44742)By: Randall On: 12-Sep-2008 Intent THALIA Comments: placement Pt given diary and instructions she voices understanding iveth arnold DXA, BONE DENSITY, AXIAL SKELETON On: 16-Aug-2008 Intent (98802)By: Raya Viera DO MAMMOGRAM, SCREENING, BOTH BREASTS On: 16-Aug-2008 Intent (73356)By: Raya Viera DO Holter Monitor 24 hrsBy: Juve COLEY, On: 16-Aug-2008 Intent Raya Arechiga EKG (52843)By: Jennifer Coronado On: 16-Aug-2008 Intent Comments: ekg showed normal sinus rhythym, normal axis, no acute st/t wave changes t wave inversion anteriorly unchanged IMMUNIZ ADMNIN, 1 VAC, SNGL/COMBO On: 16-Jun-2008 Intent (52168)By: Renetta Hough LPN FLU VAC, SPLIT, >3 YEARS, INTRAMUSC On: 16-Jun-2008 Intent (53721)By: Renetta Hough LPN Comments: 0.5cc given im lt olga H.Horn SPECIMEN HNDLNG/TRNSPRT, OFFC > LAB On: 18-Jan-2008 Intent (10342)By: Jennifer Coronado CT - AbdomenBy: Raya Viera DO On: 19-Jul-2007 Intent Comments: stat tonight call wet read EKG (81025)By: THALIA Pereira On: 21-Jun-2007 Intent Comments: ekg showed normal sinus rhythym, normal axis, no acute st/t wave changesasymetric twave inversion- no change FLU VAC, SPLIT, >3 YEARS, INTRAMUSC On: 21-Jun-2007 Intent (05500)By: THALIA Pereira Comments: Lot #:Expiration date:Amount given:Route: IMSite given:left deltoidGiven by: iveth Lot # [id number] exp 02-28-08 IMMUNIZ ADMNIN, 1 VAC, SNGL/COMBO On: 21-Jun-2007 Intent (05264)By: THALIA Pereira FLU VAC, SPLIT, >3 YEARS, INTRAMUSC On: 06-Jul-2006 Intent (75957)By: THALIA Pereira IMMUNIZ ADMNIN, 1 VAC, SNGL/COMBO On: 06-Jul-2006 Intent (83193)By: THALIA Pereira Comments: Lot #:Expiration date:Amount given:Route: [...] Hypercholesteremia : DISCONTINUED - METABOLIC PANEL, COMPREHENSIVE (17640) Indication: Hypercholesteremia Hypercholesteremia : DISCONTINUED - LIPID PANEL (00268) Indication: Hypercholesteremia BMI 30.0-30.9,adult : How to [...] Indication: Essential hypertension Encounters Office Visit On: 10-Aug-2018 13:42 Encounter Reason: [...] The patient does have durable power of employment attorney and living will. The patient has noticed nothing from the geriatic depression scale. Other providers contributing to the patient's care are helper animal laboratory and assistant produce manager. Encounter Diagnosis: BMI 30.0-30.9,adult, Nonsmoker, Acquired [...] The patient does have durable power of employment attorney and living will. The patient has [...] The patient does have durable power of employment attorney and living will. The patient has [...] Well Women Exam: no breast mass no [id number] Encounter Diagnosis: Annual Medicare Physical (V70.0), Well [...] The patient does have durable power of employment attorney and living will. The patient has noticed nothing from the geriatic depression scale. Other pr oviders contributing to the patient's care are helper animal laboratory (Dr. Candelario), gastrologist (Dr. Marion) and other: [...] Knee Pain: she has been back to [facility] End: 25-Feb-2012 9:37 and 3 seesions of [...] weight :. 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
--- OUTSIDE RECORDS SUMMARY | 2018-11-21 02:26 | XMS RPT_ITS ---
:1950 Author Organization OHIP Care Team Providers Name Role Phone Windy Hylton DO Attending Unavailable Fast Raya COLEY Referring Unavailable Windy Hylton DO Consulting Unavailable Windy Hylton Attending Unavailable Windy Hylton Referring Unavailable Concetta Windy Primary Care Unavailable Windy Hylton Attending Unavailable ConcettaWindy Referring Unavailable Concetta Windy Primary Care Unavailable DOCTOR, OUT OF TOWN Attending Unavailable Concetta, Windy Primary Care Unavailable Cuba Horn Attending Unavailable Concetta, Windy Referring Unavailable Concetta, Windy Primary Care Unavailable PROBLEMS PROBLEMS No Problem Records FoundPROCEDURES PROCEDURES No Procedure Records FoundRESULTS RESULTS BRAIN WITHOUT Observed: 09/16/2018 Status: F Source: [place]IO CONTRAST 11:10 AM [facility] [place] [place] REPOSITORY [facility] Imaging Services [address] [place] [address] Brain without Contrast MR#: [id number] Acct: [id number] Name: JULIET GORDON Rep #: [id number] : 1950 F 68 From: Dennis Gardner MD PCP: Windy Hylton DO Status: REG CLI Study: Brain without Contrast Date of Exam: 09/16/18 Exam# [id number] Ordering Dr: Windy Hylton DO STUDY: MRI BRAIN WITHOUT CONTRAST REASON FOR EXAM: Female, 68 years old. Worsening headaches for 3 weeks TECHNIQUE: Standardized multiplanar fat and water weighted pulse sequences were obtained. COMPARISON: None. FINDINGS: Normal size of the ventricles and extra-axial spaces for the patient's age. There are a limited number of small white matter hyperintensities, distributed throughout the deep white matter tracts of the cerebral hemispheres, consistent with mild chronic white matter ischemic changes. Normal bilateral basal ganglia. Normal thalami. There is no extra-axial fluid accumulation. Normal flow voids within the major intracranial circulation suggesting patency by spin echo criteria. Normal sella turcica, pituitary gland, infundibular stalk, optic chiasm and hypothalamus. Normal tectal plate and pineal gland. Normal midbrain, michael and medulla. Normal cerebellum. Normal basal cisterns. Normal bilateral temporal bones. Normal bilateral internal auditory canals. There are bilateral ocular lens implants with otherwise normal intraorbital contents. Normal visualized paranasal sinuses. Normal calvarium and skull base. Normal visualized soft tissue structures. Normal visualized upper cervical spine. MRI/Brain without Contrast IMPRESSION: No evidence of acute infarct or hemorrhage. Mild microangiopathic white matter disease. Electronically Signed: Dennis Gardner MD at 12:48 EST Tel , Service support , CC: Windy Hylton DO Malted Milk Mixer: Signed MRA HEAD ONLY WITHOUT Observed: 09/16/2018 Status: F Source: [place] CONTRAST 11:10 AM [facility] [place] [place] REPOSITORY [facility] Imaging Services [place] [address] MRA Head ONLY without Contrast MR#: [id number] Acct: [id number] Name: JLUIET GORDON Rep #: [id number] : 1950 F 68 From: Dennis Gardner MD PCP: Concetta DO,Windy Status: REG CLI Study: MRA Head ONLY without Contrast Date of Exam: 09/16/18 Exam# [id number] Ordering Dr: Windy Hylton DO STUDY: MRA OF THE HEAD WITHOUT CONTRAST REASON FOR EXAM: Female, 68 years old. Worsening headaches for 3 weeks TECHNIQUE: 3-D qczh-za-tguyxk (TOF) imaging was performed with MIPs. The study was performed unenhanced. COMPARISON: None. FINDINGS: Normal bilateral petrous carotid arteries. Normal right cavernous carotid artery with a normal supraclinoid bifurcation. Normal left cavernous carotid artery with a normal supraclinoid bifurcation. Normal right A1 segments of the anterior cerebral artery. Normal left A1 segments of the anterior cerebral artery. Normal intact anterior communicating artery (ACOM). Normal bilateral A2 segments of the anterior cerebral arteries. Normal right M1 and M2 segments of the middle cerebral arteries, with a normal M1 bifurcation. Normal left M1 and M2 segments of the middle cerebral arteries, with a normal M1 bifurcation. Normal right posterior communicating artery (PCOM). Normal left posterior communicating artery (PCOM). Normal bilateral vertebral arteries. Normal basilar artery with a normal basilar bifurcation. The visualized bilateral superior cerebellar (SCA) arteries are normal. Normal bilateral P1, P2 and visualized P3 segments of the posterior cerebral arteries. There is no demonstrated aneurysm of the northway of [place]. There is no major vessel occlusion or hemodynamically significant stenosis. There is no demonstrated abnormality of the visualized brain. MRI/MRA Head ONLY without Contrast IMPRESSION: Normal MRA of the head Electronically Signed: Dennis Gardner MD at 12:51 EST Tel , Service support , CC: Windy Hylton DO Malted Milk Mixer: Signed CERV SPINE 2 OR 3 Observed: 09/09/2018 Status: F Source: [place] VIEWS 1:45 PM [facility] [place] [place] REPOSITORY [facility] Imaging Services [address] [place] [address] Cerv Spine 2 or 3 Views MR#: [id number] Acct: [id number] Name: JULIET GORDON Rep #: [id number] : 1950 F 68 From: Donnie Prince MD PCP: Windy Hylton DO Status: REG CLI Study: Cerv Spine 2 or 3 Views Date of Exam: 09/09/18 Exam# [id number] Ordering Dr: Windy Hylton DO STUDY: X-RAY - CERVICAL SPINE REASON FOR EXAM: Female, 68 years old. Neck pain and headache TECHNIQUE: 3 view(s) of the cervical spine were obtained. COMPARISON: None FINDINGS: Normal anterior atlantoaxial articulation. Normal odontoid process. There is straightening of the normal cervical lordosis. Normal vertebral bodies and endplates. There is multi-level degenerative disc disease with multilevel disc space narrowing. The soft tissue structures are unremarkable. RAD/Cerv Spine 2 or 3 Views IMPRESSION: Multilevel degenerative changes, no acute findings Electronically Signed: Higinio Prince MD at 11:57 EST , Service support , CC: Windy Hylton DO Malted Milk Mixer: Signed URGENT CARE VISIT Observed: 10/10/2017 Status: F Source: GIO REPORT 11:35 AM [facility] [place], [place] REPOSITORY [facility] [address] [place] [address] [address] [place] [address] OFFICE VISIT Date of Service: 10/10/17 MR#: [id number] Acct: [id number] Name: JULIET GORDON Rep #: [id number] : 1950 Provider: Cuba GONSALVES Age/Sex: 67/F Location: [facility] Status: Signed Intake Vital Signs10/10/17 Height 5 [...] 5 Days #10 10/10/17 [History Confirmed 10/10/17] [facility] Medical History Knee pain (Acute) Thyroid disease (Acute) Hypertension (Chronic) Social History Smoking Status: Never smoker alcohol intake: never HPI HPI Details: JULIET GORDON, is a 67 F who presents to the office today for sinus pain and pressure for the past 2 weeks. Patient also admits to having a cough which has been dry and nonproductive. She denies shortness of breath, difficulty breathing or hemoptysis. She does state that the sinus pain and pressure has caused some headache which is relieved with Tylenol. No fever, chills, sweats. No nausea, vomiting, diarrhea. No other associated symptoms or alleviating/aggravating factors. ROS Const Constitutional: Positive for headache(s); no fever(s), chills, night sweats or abnormal [...] bilaterally, EAC's normal Nose: nasal discharge purulent Face and sinus: sinus tenderness frontal and maxillary Mouth: oral mucosae normal Throat: abnormal tonsil bilaterally, postnasal drainage Resp Effort AND Inspection: normal respiratory effort Auscultation: Bilateral: Clear to Auscultation Cardio Rate: regular rate Rhythm: regular rhythm Neuro General: alert, CN's II-XI intact bilaterally Psych Appearance: grossly normal Mental Status: mental status grossly normal Assessment AND Plan 1. Acute non-recurrent maxillary sinusitis J01.00 Status Acute Plan Encouraged to get plenty of rest, drink lots of clear liquids, and use Tylenol or Ibuprofen (unless contraindicated) for fever and comfort. Patient also educated on other symptomatic management techniques. To be seen in 7-10 days if no improvement; sooner if worsening of symptoms. Patient advised of potential red flags and when appropriate report to the ED. Patient verbalized understanding of all the above. This note was generated with Saphoation software. It may contain incorrect words, spelling, and punctuation that were not noted in checking the note before signing. Plan Detail Other Medications New: azithromycin Take 2 tabs once on day one. Take one tablet o250 mg PO QDAY 5 days J32.9 nce daily for the next 4 days. Coding Level of Care Code Off vis,new,level 3 Diagnoses Acute non-recurrent maxillary sinusitis J01.00 Sinusitis location: maxillary Chronicity: acute Recurrence: non-recurrent 10/10/17 1135 <Electronically signed by Cuba GONSALVES> Date Cuba GONSALVES Cosigner Signature: Date (if applicable) CC: ALLERGIES ALLERGIES DATE TYPE / CODE NAME / CODE REACTION SEVERITY SOURCE 10/10/2017 Drug Penicillins/ Unknown [facility] Allergy/4160 [id number]([place] [address](SNOMED XNORM) Repository CT) 10/10/2017 Drug levothyroxin joint issues [facility] Allergy/4160 e/[id number] [place] [address](SNOMED (RXNORM) Repository CT) ENCOUNTERS ENCOUNTERS ADMIT/DISCHARGE ACCOUNT ADMITTING ENCOUNTER LOCATION SOURCE NUMBER CLASS 09/16/2018 [id number] Ambulatory Gio [place]el[place] 0 [facility] ing:MRI Repository 09/09/2018 4792 Ambulatory Building:[facility] OHIP Practices Repository 09/09/2018 [id number] Ambulatory Gio [place] 1 [facility] ing:HPRAD Repository 06/23/2018 [id number] Ambulatory Gio Gio 4 [facility] ing:MASS Repository 10/10/2017/ [id number] Ambulatory BMSBuilding:B Gio [address] Repository PAYERS PAYERS ENCOUNTER GUARANTOR PAYER SUBSCRIBER SOURCE 09/16/2018 RIZWAN Primary JULIET Lara Engelhard [id number] Insurance:MEDICARE OHLSENDOB: [facility] PART A BPolicy [id number] Number: Repository [address]Uyf: 330 [id number] [phone] (HP) Date:2018-09-10 09/16/2018 Secondary JULIET K Gio Insurance:AARPPolicy OHLSENDOB: [facility] Number: [id number] Hospital [id number] Repository Date:5609-28-74[address], [place] [address]DM: 09/16/2018 Tertiary NOT GIVENUNK Gio Insurance:SELF PAY [facility] Number: Effective Repository Date:2018-09-10 09/09/2018 Juliet K Primary Juliet K OHIP Practices OhlsenDOB: Insurance:MedicarePol OhlsenDOB: Repository [id number] icy Number: [id number] [place] [id number] 3 [place], [place] Date:4483-12-93[place]ip[place], [place] [address]Yho: [phone] Name:[facility] [address] [address]Ysz: [id number], [place] [phone] (HP) (HP)Tel: [phone]: [phone] 09/09/2018 Secondary Juliet K OHIP Practices Insurance:AARP/UHCPol OhlsenDOB: Repository icy Number: [id number] 3 [place] Date:9731-75-16Haxg [place], [place] Name:[facility] [address]Mwx: [phone], [place] [phone] () [id number]: 09/09/2018 Tertiary Juliet K OHIP Practices Insurance:Medical OhlsenDOB: Repository [facility] [id number] Number: Kody Villegas [id number] [place], [place] Date:2008-01-18 93[address]Niw: [phone] [id number] [phone] () Name:[facility] [address]Vvlevwsms, [place] [id number]: 09/09/2018 RIZWAN Primary JULIET K Engelhard [id number] Insurance:MEDICARE OHLSENDOB: [facility] [place] PART A olic [id number], [place] Number: Repository [id number]: [phone] [id number] [phone] () Date:2018-09-09 09/09/2018 Secondary JULIET K Gio Insurance:AARPPolicy OHLSENDOB: Community Number: [id number] Hospital [id number] Repository Date:9203-16-50[address], [place] [address]ZR: 09/09/2018 Tertiary NOT GIVENUNK Gio Insurance:SELF PAY [facility] Number: Effective Repository Date:2018-09-09 06/23/2018 RIZWAN Primary NOT GIVENUNK Engel[place] [id number] Insurance:SELF PAY [place], [place] Number: Effective Repository [id number]: [phone]) Date:2017-04-27 [phone] () 10/10/2017 Rizwan Primary JULIET K Gio [id number] Insurance:MEDICARE OHLSENDOB: [facility] PART A olic [id number] Number: Repository [id number]: [phone] [id number] [phone] () Date:2017-10-10 10/10/2017 Secondary JULIET K [place]el[place] Insurance:AARPPolicy OHLSENDOB: Community Number: [id number] Hospital [id number] Repository Date:0061-90-28[address]VJHT[place], [place] [address]GP: 10/10/2017 Tertiary NOT GIVENUNK [place] Insurance:SELF PAY [facility] Number: Effective Repository Date:2017-10-10
== END ==
PROVIDERS: Family Provider Internal Medicine; PCP Internal Medicine; Referring Provider Internal Medicine; Visit Provider Internal Medicine
DX: R51 Headache (principal); M54.2 Cervicalgia
CPT/HCPCS: 70544; 70551

== ENCOUNTER → 2020-04-25 09:24 | Outpatient (CLI) | payer MEDICARE, OTHER, SELFPAY ==
--- NOTE | 2020-04-25 09:32 | BD_ITS ---
STUDY: DUAL ENERGY X-RAY ABSORPTIOMETRY / DXA REASON FOR EXAM: Female, 70 years old. DETENTION DEPUTY -- TAKES THYROID MEDICATION -- TAKES CALCIUM AND MULTIVITAMIN -- DOES LITTLE- MODERATE AMOUNT OF EXERCISE -- JAMIE OF 1 INCH TECHNIQUE: Bone Mineral Density (BMD) measurements of lumbar spine and bilateral hips were obtained. COMPARISON: Comparison is made with prior examination dated 09/07/2008. FINDINGS: Lumbar Spine (L1-L4): g/cm2 (1.361) / T-score (1.5) / Z-score (3.2) Findings are suggestive of osteopenia with a low fracture risk. Left Femur Total: g/cm2 (0.796) / T-score (-1.7) / Z-score (-0.1) Left Femoral Neck: g/cm2 (0.788) / T-score (-1.8) / Z-score (0.0) Right Femur Total: g/cm2 (0.886) / T-score (-1.0) / Z-score (0.6) Right Femoral Neck: g/cm2 (0.883) / T-score (-1.1) / Z-score (0.7) The T-Scores on the most recent prior examination were: Lumbar Spine (L1-L4): There has been improvement of bone density since the previous examination. Left Femur Total: which represents a worsening of 3.6%. Right Femur Total: which represents an improvement of 0.9%. BD/Dexa Bone Density Study IMPRESSION: The patient is considered osteopenic as outlined below according to World Angel Organization (WHO) criteria with a moderate fracture risk. There has been improvement of bone density since the previous examination. Reference Information: The T-score is the number of standard deviations above or below the standard which is normal for young adults at their peak bone mineral density. The World Health Organization (WHO) interprets the T-scores as follows: Above -1 Normal bone density Between -1 and -2.5 Osteopenia Equal to / or below -2.5 Osteoporosis As a practical clinical guideline, osteopenia may be graded as follows: Mild -1 through -1.5 Moderate -1.6 through -2.0 Severe -2.1 through -2.4 The Z-score is the number of standard deviations above or below age-matched controls. A Z-score of less than -1.5 would be considered abnormal. References: 1. NIH Osteoporosis and Related Bone Diseases http://www.osteo.org 2. International Society for Clinical Densitometry http://www.iscd.org 3. National Osteoporosis Foundation http://www.nof.org Electronically Signed: Cruzito Briggs, at 15:35 EDT , Service support ,
== END ==
PROVIDERS: PCP Internal Medicine; Referring Provider Internal Medicine; Visit Provider Internal Medicine
DX: Z78.0 Asymptomatic menopausal state (principal)
CPT/HCPCS: 77080

== ENCOUNTER → 2021-05-27 10:53 | Outpatient (CLI) | payer MEDICARE, OTHER, SELFPAY ==
--- NOTE | 2021-05-27 10:57 | BI_ITS ---
MAMMOGRAPHY - BILATERAL SCREENING REASON FOR EXAM: Female, 71 years old. Routine annual screening examination. PERTINENT HISTORY: Non-contributory. TECHNIQUE: Digital bilateral breast eulalio (3D mammographic acquisition) in the CC and MLO projections. 2-D mediolateral oblique (MLO) and craniocaudad (CC) views of both breasts were obtained. CAD: Full Field Digital Mammography with Computer Added Detection was performed. COMPARISON: Comparison is made with prior study dated 09/03/2017 and 06/26/2016. FINDINGS: Breast Composition: There are scattered areas of fibroglandular density. There are no dominant masses or suspicious calcifications. Stable 1.2 cm well-defined nodule in the upper outer quadrant of the left breast. Stable 8.8 mm well-defined nodule in the inferior medial portion of the left breast. No other significant abnormalities are identified. There has been no significant change since the prior study. BI/SCRN MAMM (CAD)W/EULALIO BILAT IMPRESSION: Stable bilateral screening mammogram. Yearly follow-up mammogram recommended. (A) ASSESSMENT CATEGORY: BIRADS Category 2: Benign. A letter regarding these results will be sent to the patient by the facility within 30 days. Approximately 10% of breast cancers are not detected by mammography. A normal mammogram should not delay biopsy of a clinically suspicious abnormality. [id number] Electronically Signed: Cruzito Briggs MD at 12:12 EDT , Service support ,
== END ==
PROVIDERS: PCP Internal Medicine; Visit Provider Internal Medicine
DX: Z12.31 Encounter for screening mammogram for malignant neoplasm of breast (principal)
CPT/HCPCS: 77063; 77067

== ENCOUNTER → 2021-07-24 | Outpatient (CLI) | payer MEDICARE, OTHER, SELFPAY | END | disposition home or self-care (01) | LOC: LABSPEC 10:11 | PROVIDERS: PCP Internal Medicine; Visit Provider Nurse Practitioner | DX: J02.9 Acute pharyngitis, unspecified (principal) | CPT/HCPCS: 87633 ==

== ENCOUNTER 2021-08-07 15:18 | Observation (INO) | payer MEDICARE, OTHER, SELFPAY ==
--- NOTE | 2021-07-22 10:41 | RAD_ITS ---
INDICATION: PRE OP EXAMINATION/TECHNIQUE: X-RAY - XR Chest 2 Views COMPARISON: None. FINDINGS: LINES/DEVICES: None. LUNGS: No consolidation, edema or effusion. No pneumothorax. MEDIASTINUM AND CARDIOVASCULAR STRUCTURES: Cardiac silhouette is within normal limits. There are no pleural effusions or focal areas of consolidation. There is some tortuosity of the thoracic aorta. BONES AND SOFT TISSUES: Moderate degenerative disc changes mid thoracic spine. RAD/Chest PA and Lateral IMPRESSION: No radiographic evidence of acute cardiopulmonary disease. Electronically Signed: Brandon Valdez MD at 13:59 EST Tel , Service support ,
[2021-07-22 11:01] LABS: Absolute Lymphocyte Count 2.09 X10^3/uL (0.83-4.51); Absolute Neutrophil Count 5.4 X10^3/uL (2.0-7.7); Basophil# 0.07 X10^3/uL; Basophil% 0.8 % (0-1); Eosinophil# 0.27 X10^3/uL; Eosinophils% 3.1 % (0-5); Hematocrit 38.8 % (37-47); Hemoglobin 12.8 g/dL (12.0-15.0); Lymphocyte # 2.09 X10^3/ul (0.83-4.51); Lymphocyte % 23.8 % (19-41); Mean Corpuscular Hgb 30.9 pg (27.0-32.0); Mean Corpuscular Volume 93.7 fL (81-99); Mean Platelet Vol. 9.8 fl (6.2-12.0); Monocyte# 0.94 X10^3/uL; Monocyte% 10.7 % (0-10); NRBC Flagged by Analyzer 0 % (0-5); Neutrophil # 5.37 X10^3/uL (2.7-7.7); Neutrophil % 61.1 % (47-70); Platelet Count 356 K/mm3 (150-450); RBC Distribution Width CV 13.3 % (11.6-14.6); RBC Distribution Width SD 45.3 fl (35.1-43.9); Red Blood Count 4.14 M/mm3 (4.2-5.4); White Blood Count 8.8 K/mm3 (4.4-11.0)
[2021-07-22 11:34] LABS: Albumin, Serum 3.2 g/dL (3.2-5.0); Anion Gap 5 (5-15); BUN 20 mg/dL (7-18); BUN/Creat Ratio 22.1 RATIO (10-20); Chloride 104 mmol/L (98-107); EST Glomerular Filtration Rate 65 mL/min (>60); Est Glom Filt Rate - Afr Amer 79 mL/min (>60); Glucose 101 mg/dL (74-106); Potassium 4.3 mmol/L (3.5-5.1); Sodium Level 136 mmol/L (136-145)
[2021-07-22 11:39] LABS: Magnesium 2.1 mg/dL (1.6-2.6); Thyroid Stim Hormone (TSH) 1.74 uIU/mL (0.358-3.74)
[2021-08-07] VITALS (16 sets, daily range): BP systolic 106–144; BP diastolic 51–82; PULSE 52–71; RESP 16–18; TEMP 35.9–37; O2SAT 93–100; BMI 32.4
[2021-08-07] MEDS: Gabapentin 600 MG Tablet PO (05:30)
[2021-08-07] MEDS: Celecoxib 200 MG Capsule 400 MG PO (07:00)
[2021-08-07] MEDS: Lactated Ringers 1,000 ML 999 ML IV ×2 (07:01→10:51)
[2021-08-07] MEDS: Acetaminophen 500 MG Tablet 1000 MG PO ×2 (07:02→21:03)
[2021-08-07 07:15] LABS: Bedside Glucose 52 mg/dL (70-110)
[2021-08-07] MEDS: dexAMETHasone 10 MG/ML Vial IV (08:33)
[2021-08-07] MEDS: Lactated Ringers 1,000 ML 75 ML IV (09:01)
--- NOTE | 2021-08-07 09:13 | PCM.OPRPT ---
Report of Operation Pre-Operative Diagnosis: Left knee primary osteoarthritis Post-Operative Diagnosis: Left knee primary osteoarthritis Surgery/Procedure Performed:: Left knee minimally invasive computer navigated total knee replacement Description of Surgical Findings:: Stable knee with good patella tracking. Nickel free implants were used Surgeon: Zbigniew Fuller coding file clerk: Javy Nascimento Type of Anesthesia: Spinal Anesthesiologist: Parminder Coleman Special Medications: 2 g Ancef, 1 g TXA at incision, 1 g TXA closure, 10 mg Decadron, joint cocktail (5 mg Duramorph, 30 mL of 0.5% Ropivicaine, 1000 units of epinephrine, 30 mg of Toradol) Specimen's removed: Bony cuts Estimated Blood Loss (mL): 25 Fluids Replaced: 1200 mL crystalloid Description of Procedure: Implants used: 1. Biomet size 62.5 cemented distal femoral component Vanguard 2. Biomet 71 mm keel tibia 3. Mike Biomet anterior stabilized 10 mm polyethylene e 4. Mike Biomet 34 mm symmetric thin patella Brief history operative indications: 71-year-old f with history of left knee osteoarthritis with radiographic findings with loss of joint space, osteophyte formation and subchondral sclerosis. Failed conservative measures as mentioned in the H&P. Discussion of total knee arthroplasty as well as risk and benefits were discussed the patient including but not limited to blood loss, DVTs, PEs, neurovascular damage, general risk of anesthesia including loss of life, and stiffness or instability were discussed with patient. Patient demonstrated understanding and was able to sign informed consent. Procedure: On the date of procedure patient's left lower extremity was marked in the preoperative area. The patient was then taken back to the operating room where the patient was placed on the table in the supine position. All bony prominences were identified a well-padded. Anesthesia assumed control of the C-spine and airway and remained controlled throughout the remainder of the procedure. A tourniquet was placed on the left upper thigh and the leg was prepped in a sterile fashion. The surgeon then scrubbed at this time .Upon reentering the room left lower extremity was draped in a standard orthopedic fashion. A timeout was then called and everyone agreed upon the side, the site, the procedure to be performed, patient's identity and antibiotics given. Esmarch bandage was used to exsanguinate the extremity and the tourniquet was placed up to 250 mmHg with the knee in flexion. A midline skin incision was made and sharp dissection was taken down through skin subcutaneous tissue and fat. The standard medial parapatellar incision was made and the patella was subluxed laterally. The standard deep MCL release was done and the fat pad was resected. Next our attention was directed to the femur. Navigation pins were placed, navigation was registered. The distal femoral cutting block was pinned into place and 9 mm of distal femur resection was completed. The distal femoral cut was verified with navigation. The knee was then placed in deep flexion in the standard Mike Biomet Vanguard sizing guide was used to place the femoral component in 3? external rotation based on the posterior condyles. A size 62.5 4-in-1 cutting block was selected and pinned into place. The anterior cut was then made and checked for notching. The subsequent anterior chamfer cuts, posterior condylar cuts and posterior chamfer cuts were made while ensuring the MCL and LCL were protected. Our attention was then turned to the tibia where the navigation pins were placed, navigation was registered. ManuelWaveseerreyna tibial cutting guide was used to make the appropriate tibial cut 90 degrees from the mechanical axis. Navigation was then used to verify the cut. A size 71 tibial base plate was selected. the knee was flexed to 90 degrees and the soft tissues and posterior osteophytes were removed from the joint. 40 cc of the periarticular injection was injected into the posterior medial corner of the joint. The appropriate trials were then placed on the femur and tibia. A trial polyethylene was trialed to ensure proper balancing and stability of the knee. Patella tracking, was then verified and corrected appropriately as needed. The appropriate tibial internal rotation was then marked with a bovie. Our attention was then directed to the patella. The patella was everted and a flat resection was made. The lug holes were drilled and the patella trial was placed. Patellar tracking was checked and deemed appropriate. Once we were happy lug holes were drilled for the femur and trial components were removed. the tibia was subluxed and pinned into place and the keel was punched and the canal was reamed. Final components were verified and opened, and cement was mixed in a vacuum. Agent Panda Simplex cement was used. The wound was copiously irrigated with normal saline. When the cement was ready the components were cemented into place starting with the tibia, femur and finally the patella. The trial poly component was placed and the knee was placed in full extension. All excess cement was removed in the process. Once the cement had cured the tracking, alignment and balance were verified and a size 10 mm polyethylene component was placed. Once the final components were placed the wound was copiously irrigated with normal saline solution and the periarticular injection was given. The wound was closed in a layer platt fashion using #1 vicryl interrupted sutures for the arthrotomy, 2-0 interrupted Vicryl suture for the subcuticular layer and osmin for final skin closure. A sterile compressive dressing was then placed. The patient was then awakened from anesthesia, transferred to the rreeder and transferred to the PACU for recovery. Post op plan DVT ppx: Aspirin 81 mg twice daily. Thigh high compression stockings Follow up: in office in 2 weeks for wound check PT: to start POD #0 at hospital, outpatient PT should be arranged. My physician learning and development associate (PE) was a vital part of this case. They were important in appropriate retraction during the case, and protection of soft tissues during bony cuts. Their intimate knowledge of the case and my steps aided in safe and expedient completion of the procedure as well as appropriate position of the leg during the case. They were also vital in assisting with closure under my direct supervision. Complications No intraoperative complications Admit VTE Documentation VTE Present on Admission: No VTE Mechan Device Prophylaxis: SCD's and Thigh High MANJIT Hose VTE Pharm Prophylaxis ordered?: Yes
--- NOTE | 2021-08-07 10:12 | RAD_ITS ---
STUDY: XR Knee 1 or 2 Views 08/07/2021 3:40 PM REASON FOR EXAM: Female, 71 years old. POST OP TKA -- in PACU TECHNIQUE: XR Knee 1 or 2 Views COMPARISON: None. FINDINGS: There is no fracture or dislocation. There is anatomic alignment. Total knee arthroplasty. Soft tissue edema. Skin osmin are seen along the anterior midline aspect of the knee. There is an air-fluid level seen in the suprapatellar region. Joint space is preserved. Subcutaneous air is noted. IMPRESSION: Successful total knee arthroplasty. Electronically Signed: Vineet Banerjee MD at 15:41 EST , Service support , RAD/Knee 1 or 2 Views
[2021-08-07] MEDS: Cefazolin 1 GM/50 ML BAG IV ×2 (11:40→19:39)
--- NOTE | 2021-08-07 18:26 | PCM.PN.HOSP ---
Subjective Subjective Doing well, pain is controlled. She had an elective left knee replacement. States that her medications have been stable and has not had any recent changes. She is on Synthroid and atenolol which can be continued. She states that initially the plan was for her to be discharged home however she said that she had significant nausea after a meniscal repair and therefore she was afraid that she was going to go home and have nausea not be able to take her pain meds. Objective Data Objective Data Vital Signs: Vital Signs Temp Pulse Resp BP Pulse Ox 98.6 F 64 16 119/82 H 94 08/07/21 17:40 08/07/21 17:40 08/07/21 17:40 08/07/21 17:40 08/07/21 17:40 Oxygen Flow Rate (L/min) 6 Oxygen Delivery Method Room Air Weight: 182 lb 15.739 oz Body Mass Index (BMI) 32.4 Intake & Output: Intake and Output for Last 24 Hours 08/06/21 08/07/21 08/08/21 03:59 03:59 03:59 Intake Total 3485 / 3485 Balance 3485 / 3485 Lab / Micro Data Result Diagrams: 07/22/21 10:25 07/22/21 10:25 Labs: Laboratory Results - last 24 hr 08/07/21 06:35: POC Glucose 52 L Micro: Microbiology 07/22/21 10:25 Swab (Method) Nasal Screen MRSA/MSSA - Final Radiography Diagnostic Testing: Radiology Impression Knee X-Ray 08/07/21 10:12 Physical Exam Const alert, oriented x3 and no apparent distress General Appearance: cooperative HEENT normocephalic and moist oral mucous membranes Eyes PERRL, EOMs intact bilaterally and conjunctivae normal Neck supple and no JVD Resp normal respiratory effort, no retractions, no use of accessory muscles and clear to auscultation bilaterally Auscultation: Negative for crackles, rales, rhonchi or wheezes Cardio regular rate, regular rhythm, S1 normal heart sound, S2 normal heart sound and no murmurs GI soft to palpation, non-tender and non-distended; Negative for hepatosplenomegaly Extremity no clubbing, cyanosis or edema Skin no rashes or lesions noted Skin Narrative: Dressing is CDI Neuro no focal motor deficits and no sensory deficits noted Psych affect normal Appearance: appropriate Assessment & Plan Assessment/Plan (1) Status post total left knee replacement: PLAN: 1. Status post total left knee replacement 08/07/2021 ?Pain management per primary ?Continue with antiemetics ?PT/OT ?Anticipate discharge tomorrow ?We will continue to follow peripherally 2. Hypertension ?Stable, will continue to monitor blood pressures ?Continue with atenolol 3. Hypothyroidism ?Stable ?Continue with Synthroid 4. Anxiety/depression ?Stable ?Continue with Zoloft DVT: Aspirin twice daily Charges/Coding Visit Charges OBSV E&M: 07304 Subsequent observation care L2
[2021-08-07] MEDS: Lactated Ringers 1,000 ML 125 ML IV (18:45)
[2021-08-07] MEDS: Aspirin 81 MG TAB.CHEW PO (19:39)
[2021-08-07] MEDS: Senna/Docusate Sodium 1 Tablet 2 TABLET PO (21:04)
[2021-08-08 02:31] VITALS: BP 105/48; PULSE 62; RESP 12; TEMP 36.5; O2SAT 97
[2021-08-08] MEDS: Cefazolin 1 GM/50 ML BAG IV (02:35)
[2021-08-08] MEDS: Ketorolac 30 MG/ML Syringe 15 MG IV (02:36)
[2021-08-08] MEDS: 0.9% Saline Lock 10 ML Syringe IV (02:37)
[2021-08-08 06:20] LABS: Hematocrit 31.5 % (37-47); Hemoglobin 10.5 g/dL (12.0-15.0); Mean Corp Hgb Conc 33.3 g/dL (32-36); Mean Corpuscular Hgb 31.8 pg (27.0-32.0); Mean Corpuscular Volume 95.5 fL (81-99); Platelet Count 247 K/mm3 (150-450); RBC Distribution Width CV 13.7 % (11.6-14.6); RBC Distribution Width SD 47.8 fl (35.1-43.9); White Blood Count 16.4 K/mm3 (4.4-11.0)
[2021-08-08] MEDS: Levothyroxine 50 MCG Tablet PO (06:31)
[2021-08-08] MEDS: Acetaminophen 500 MG Tablet 1000 MG PO (06:31)
[2021-08-08 06:39] VITALS: BP 109/57; PULSE 66; RESP 16; TEMP 36.9; O2SAT 98
[2021-08-08 06:48] LABS: Anion Gap 5 (5-15); BUN 19 mg/dL (7-18); BUN/Creat Ratio 22.5 RATIO (10-20); Calcium,Total 7.9 mg/dL (8.5-10.1); Chloride 102 mmol/L (98-107); Creatinine, Serum 0.84 mg/dL (0.55-1.02); EST Glomerular Filtration Rate 70 mL/min (>60); Est Glom Filt Rate - Afr Amer 85 mL/min (>60); Estimated Creatinine Clearance 49.34 ml/min; Glucose 113 mg/dL (74-106); Potassium 4.3 mmol/L (3.5-5.1); Sodium Level 135 mmol/L (136-145)
--- NOTE | 2021-08-08 08:59 | PN.ORTHO_ITS ---
Subjective Subjective The patient was participating in physical therapy upon examination. Patient denies any chest pain, shortness of breath, dizziness, lightheadedness, nausea or vomiting, or calf pain. Pain is controlled on medications. No adverse overnight events. Patient did have some nausea yesterday but this resolved. Overall pain is doing well on medications. Patient was initially scheduled as an outpatient procedure and she has all medications at home. Objective Data Objective Data Vital Signs: Vital Signs Temp Pulse Resp BP Pulse Ox 98.4 F 66 16 109/57 L 98 08/08/21 06:39 08/08/21 06:39 08/08/21 06:39 08/08/21 06:39 08/08/21 06:39 Oxygen Flow Rate (L/min) 6 Oxygen Delivery Method Room Air Weight: 83 kg Body Mass Index (BMI) 32.4 Intake & Output: Intake and Output for Last 24 Hours 08/06/21 08/07/21 08/08/21 23:59 23:59 23:59 Intake Total 3535 / 3535 1050 / 1050 Balance 3535 / 3535 1050 / 1050 Lab / Micro Data Result Diagrams: 08/08/21 06:00 08/08/21 06:00 Labs: Laboratory Results - last 24 hr 08/08/21 06:00: WBC 16.4 H, RBC 3.30 L, Hgb 10.5 L, Hct 31.5 L, MCV 95.5, MCH 31.8, MCHC 33.3, RDW Std Deviation 47.8 H, RDW Coeff of Gerda 13.7, Plt Count 247, MPV 10.0 08/08/21 06:00: Sodium 135 L, Potassium 4.3, Chloride 102, Carbon Dioxide 28.0, Anion Gap 5, BUN 19 H, Creatinine 0.84, Estim Creat Clear Calc 49.34, Est GFR (MDRD) Af Amer 85, Est GFR (MDRD) Non-Af 70, BUN/Creatinine Ratio 22.5 H, Glucose 113 H, Calcium 7.9 L Micro: Microbiology 07/22/21 10:25 Swab (Method) Nasal Screen MRSA/MSSA - Final Radiography Diagnostic Testing: Radiology Impression Knee X-Ray 08/07/21 10:12 Physical Exam Narrative Vital signs stable and afebrile. Patient is able to plantarflex and dorsiflex actively. Sensation is intact to light touch to saphenous, sural, superficial and deep peroneal, and tibial distribution. Dressing is clean dry and intact. Negative Homans bilaterally, negative signs and symptoms of DVT. Const alert, oriented x3 and no apparent distress Assessment & Plan Assessment/Plan (1) Status post total left knee replacement: PLAN: 1. S/P left total knee arthroplasty POD #1 2. Continue Pain Medications: Tylenol, meloxicam, oxycodone as needed for breakthrough pain. Patient has all prescriptions already filled as this was initially scheduled as an outpatient procedure. 3. DVT Prophylaxis: Take 81 mg aspirin twice daily for 4 weeks postoperatively for DVT prophylaxis 4. PT/OT: Weightbearing as tolerated with walker 5. H & H: 10.5/31.5, asymptomatic. Postoperative anemia secondary to acute blood loss from surgery without any intra operative complications. 6. Reactive leukocytosis: Currently 16.4, afebrile. Patient did receive Decadron intraoperatively 7. Continue postop medical management per medicine: Hospitalist states they will be following patient peripherally 8. Encouraged Incentive Spirometry 9. Disposition: Plan will be for discharge home today as long as patient is medically stable, pain is well controlled, and tolerates therapy. She appears to be doing overall very well at this point. She has all prescriptions already filled as this was initially treated as an outpatient procedure. She will follow-up per postop instructions. She has outpatient physical therapy established. I have reviewed the [place] Automated Rx Reporting System (OARRS) report for this patient for refill pattern and other prescriber involvement as part of the appropriate surveillance for the provision of acute and chronic controlled medications. The report was requested and reviewed on the date of this entry and was considered in the prescribing process.
--- NOTE | 2021-08-08 09:03 | PCM.DC ---
Discharge Instructions Diet Discharge Diet: No restrictions Activity Discharge Activity: May Not Drive (while taking narcotic pain medications.) May shower in (days): 1 (Please turn dressing away from water. Okay to get wet as long as dressing is intact to skin.) Ice area for (Minutes): 20 (Every 1-2 hours while awake. Please place barrier between the skin and ice pack.) Weight Bearing Status: Weight bearing as tolerated Keep extremity elevated above heart level: Operative Extremity Dressing / Incision Call your doctor if your incision/area has: Continuous Slow Oozing, Sudden Increased Bleeding, Increased Pain/ Swelling, Increased Redness and Foul Smelling Discharge Call your doctor if you observe: Fever of 101 or Higher, Coldness, Increased Pain, Numbness or Tingling, Change in Color, Shortness of breath, Chest pain, Calf discomfort and Uncontrolled pain Remove Dressing in: 4 days (Okay to remove dressing on August 12, 2021) Additional Dressing/Incision Instructions:: Follow [facility] Post-op Instructions. Once postoperative dressing has been removed only use gentle soap and water over the incision. Do not use any ointments, Neosporin, salves, alcohol pads over the incision for 6 weeks postoperatively. Do not submerge underwater for 6 weeks postoperatively. Continue with MANJIT hose/elastic stockings for 2 weeks postoperatively. May remove at nighttime but needs to be placed back on the leg during the day. Do NOT use alcohol with narcotic pain medication. Do NOT make important decisions while taking narcotic medication. If you have problems with taking your medication (rash, itching, nausea, etc.) call the office at once. Follow Up Care Test Results: Test results from this visit will be discussed in further detail at your follow-up appointment, if applicable. Discharge Plan Admission Admit Date/Time: 08/07/21 15:18 Attending Provider: Parminder Arauz Primary Care Provider: Windy Hylton Consulting Providers: Donnell Valencia Discharge Orders/Prescriptions Prescriptions: New acetaminophen 500 mg Tablet 1,000 mg PO Q8 Qty: 0 RF: 0 sennosides-docusate sodium [Stool Softener-Stimulant Laxat] 8.6-50 mg Tablet 2 tab PO BID Qty: 0 RF: 0 meloxicam 7.5 mg Tablet 7.5 mg PO BIDCM Qty: 0 RF: 0 famotidine 20 mg Tablet 20 mg PO DAILY 30 Days Qty: 30 RF: 0 aspirin 81 mg Tablet,Chewable 81 mg PO BIDCM Qty: 0 RF: 0 oxycodone 5 mg Tablet 5 - 10 mg PO Q4H PRN PRN (Reason: Pain Score 4-10) Qty: 0 RF: 0 Continued atenolol 25 mg tablet 25 mg PO DAILY RF: 0 levothyroxine 50 mcg Tablet 50 mcg PO DAILY RF: 0 sertraline 50 mg Tablet 50 mg PO DAILY RF: 0 turmeric 400 mg Capsule 1,000 mg PO DAILY RF: 0 phenazopyridine 95 mg Tablet 190 mg PO DAILY RF: 0 PreserVision Lutein 226 mg-200 unit -5 mg-0.8 mg Capsule 1 cap PO DAILY RF: 0 zo-bqg-GX-Hg-Ux-wmkhwil-lutein 0.4-162-18 mg Tablet 2 tab PO DAILY RF: 0 cholecalciferol (vitamin D3) [Vitamin D3] 125 mcg (5,000 unit) Tablet 125 mcg PO DAILY RF: 0 Discontinued aspirin 81 mg Capsule 81 mg PO DAILY RF: 0 Referrals / Follow Up: Physical,Therapy [Other] - 08/09/21 10:30 am ([facility]) Windy Hylton DO [Primary Care Provider] - Javy Nascimento PA-C [PHYSICIAN RANCH HAND SUPERVISOR] - 08/22/21 1:15 pm Disposition Disposition (needs filled in before D/C Order can be placed): Home, Self Care
[2021-08-08] MEDS: Sertraline 50 MG Tablet PO (09:19)
[2021-08-08] MEDS: Aspirin 81 MG TAB.CHEW PO (09:19)
[2021-08-08] MEDS: Senna/Docusate Sodium 1 Tablet 2 TABLET PO (09:19)
[2021-08-08] MEDS: Famotidine 20 MG Tablet PO (09:19)
[2021-08-08] MEDS: Cholecalciferol (VIT D3) 25 MCG TABLET (1,000 UNITS) 125 MCG PO (09:19)
[2021-08-08 09:23] VITALS: BP 104/64; PULSE 67; RESP 17; TEMP 36.9; O2SAT 96
--- NOTE | 2021-08-08 11:05 | CASEMGMT ---
AMY HERNANDEZ Face to Face with patient for initial transition planning/care coordination assessment. RN CM introduced self and role at [facility]. Patient sitting in chair, alert and oriented. Patient willing to participate in assessment and is able to answer all questions appropriately. Care providers, pharmacy, and demographics verified. Patient wishes to discharge home and is setup with [facility] for outpatient therapy. Patient states she has no further needs or concerns at this time. CM to follow for discharge planning needs that may arise. PCP: [facility] Specialists: daquan Fuller; Ty, food service helper; Mehran physical therapy attendant [facility]erred [facility]acy: [facility] Insurance: [employer] Prescription Benefit: yes Living Will/HPOA: yes, Kennedy Short LNOK: Living Arrangements: Patient lives with in a single story home with 2 steps to enter the home. Patient states she was independent prior to surgery. Transportation: DME/C: Patient states she has shower chair, raised toilet, and walker at home. Patient is scheduled for outpatient therapy on Thursday at [facility]. Disposition Plan: Patient to discharge home with outpatient therapy, family support, and follow-up plans in place. Reva STREETER, RN, CM
[2021-08-08 11:21] VITALS: O2SAT 96
[2021-08-08] MEDS: Atenolol 25 MG Tablet PO (11:40)
[2021-08-08] MEDS: oxyCODONE 5 MG Tablet PO (11:40)
[2021-08-08 13:42] VITALS: BP 106/55; PULSE 64; RESP 16; O2SAT 95
== END 2021-08-08 13:50 | disposition home or self-care (01) ==
LOC: SDC 16:23 → MS3 16:23
PROVIDERS: Anesthesiology; Admitting Provider Specialist; PCP Internal Medicine; Referring Provider Specialist
PROC: (CPT 27447; principal; 2021-08-07 07:00)
DX: M17.12 Unilateral primary osteoarthritis, left knee (principal); I10 Essential (primary) hypertension; E03.9 Hypothyroidism, unspecified; Z79.899 Other long term (current) drug therapy; Z79.82 Long term (current) use of aspirin
CPT/HCPCS: 01402; 20985; 27447; 64447; 36415; 71046; 73560; 80048; 82040; 82962; 83735; 84443; 85025; 85027; 87081; 96365; 96366; 96375; 97110; 97162; 97166; 97530; 97535; 99218; 99251; C1776; J7120; A4216; G0378; G0463; J2405

== ENCOUNTER 2021-09-18 19:33 | Observation (INO) | payer MEDICARE, OTHER, SELFPAY ==
--- NOTE | 2021-09-02 12:20 | HP.PCM_ITS ---
History and Physical History and Physical [facility] Patient Name: Juliet Short : 1950 From: MÓNICA CHAVEZ PA-C DATE OF SURGERY: 09/18/2021 SCHEDULED PROCEDURE: right total knee arthroplasty HISTORY OF PRESENT ILLNESS: Preoperative history and physical exam was performed on September 02, 2021. This is a 71-year-old female who has had ongoing bilateral knee pain for over 14 years. Patient recently underwent a left total knee arthroplasty by Dr. Zbigniew Fuller on August 07, 2021. She is doing well from that procedure. She continues to complain of pain with the right knee. She does get start up pain. Pain can reach 4/10 with activities. Pain is increased with going up and down stairs and walking. Patient has difficulty with leisure activities such as hikes, exercise, yoga, and long walks. She feels unsafe in exercise class due to the pain. She has tried rest, elevation and previous corticosteroid injection with minimal relief. She has had previous Visco supplementation injection with only minimal relief. Patient has had a previous right knee arthroscopy [place] [address] Kennedy Figueroa. She has attempted bracing and orthotics with no relief in symptoms. She has tried oral medications including Tylenol and Advil with minimal relief. After failing conservative measures and discussing treatment options with Dr. Zbigniew Fuller, the patient does wish to proceed with a right total knee arthroplasty. Patient has a medical history pertinent for hypertension, sarcoidosis, and thyroid disease. She currently denies any chest pain or shortness of breath. Denies any recent fevers or chills. Patient is a little concerned after her left total knee arthroplasty she did have significant amount of nausea/vomiting which she did require overnight stay. REVIEW OF SYSTEMS: ROS: Const: Reports anxiety (brief period 10yrs ago), but denies anorexia, change in appetite, fever and weight change,hard of hearing, and vision problems. CV: Denies chest pain, heart murmur, irregular heartbeat and peripheral vascular disease. Resp: Denies asthma, cough, pneumonia, sleep apnea, shortness of breath, tuberculosis and wheezing. GI: Denies constipation, diarrhea, heartburn, nausea, bloody stools and vomiting, and difficulty swallowing. : Denies incontinence. Musculo: Denies leg swelling, trouble walking and weakness and limp. Skin: Denies Raynaud's, history of shingles and tattoo. Neuro: Denies ambulatory dysfunction, dizziness, numbness/tingling and tremor. Psych: Denies anxiety, depression, insomnia, mental illness and stress. Donato/Lymph: Denies anemia, bleeding/bruising tendency and past transfusion. Reviewed, no changes. PAST MEDICAL HISTORY: Advance Care Plan: Resuscitation, POA Effective Date: 05/02/2021 Resuscitation, LIVING WILL Effective Date: 05/02/2021 PMH: Medical Problems: High Blood Pressure, Thyroid Disease, Sarcoidosis Accidents: None Surgical Hx: Foot Surgeries - 1994, 2000, & 2007 RT Knee Arthroscopy - (11/12/2011) MSK @ [facility] Basal Skin Cancers Removed - (2020) Knee Replacement LT - (08/07/2021) SAW @ [facility] Anesthesia Complications: None Assistive Devices: Glasses Reviewed, no changes. 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 Personal Habits: Cigarette Use: Never.Smokeless Tobacco: Never Used Smokeless Tobacco.E-Cigarette Use: Never used.Alcohol: Occasionally.Drug Use: Denies Use.Enjoy Exercising: Exercises 1-3 X/Week. Reviewed, no changes. VITALS: Ht: 64 Wt: 181lb Wt k.102 BMI: 31.1 BP: 106/72 Pulse: 70 Resp: 18 T: 97.1 T: 36.2C Pain Level: 1 ALLERGIES: Levofloxacin Penicillins Erythromycin Nickel MEDICATIONS: Acetaminophen 500 mg Do not take more than 3000 mg Tylenol in a 24-hour period., Phenazopyridine HCL 95 mg daily, D 5000 5000 Unit daily, Meloxicam 7.5 mg take 1 by mouth twice a day, Aspirin 81 81 mg 1 by mouth twice a day, Famotidine 20 mg 1 by mouth every day, Atenolol 25 mg 1 po qday, Vitamin D 800 Unit 1 PO qday, Levothyroxine Sodium 50 mcg 1po qday, Sertraline HCL 50 mg 1 by mouth every day, Centrum Silver 1 by mouth every day, Preservision Areds 2 Areds 2 2po qday, Turmeric 400 mg 1/day per mouth, Azo Bladder Control/Go-Less 2po qday PRE-OP EXAM: General appearance:NORMAL Other: Eyes: Conjunctivae and lids: NORMAL Pupils: ERR Ears, Nose, Mouth, and Throat: NORMAL Other: Inspection of lips, teeth and gums: NORMAL Other: Neck: Examination of neck: no masses noted. Respiratory: Assessment of respiratory effort: NORMAL Other: Auscultation of lungs: clear to auscultation no wheezes, rhonchi or rales. Cardiovascular: Auscultation of heart: regular rate and rhythm, no murmurs, gallops or rubs. PHYSICAL EXAMINATION: Patient does walk with an antalgic gait. She does have flexion contracture on the right. She has a flexion contracture 15 on the right. Right knee has tenderness to palpation over the medial joint line. She has varus deformity. Range of motion: 0 extension 120 flexion. Sensation intact to light touch. IMAGING STUDIES: Previous x-rays of the right knee reveal varus alignment with medial joint space narrowing, subchondral sclerosis, osteophyte formation consistent with severe stage IV osteoarthritis of the right knee. IMPRESSION: 1. Severe stage IV osteoarthritis right knee 2. Presence of left total knee arthroplasty August 07, 2021 3. Hypertension 4. Thyroid disease 5. Sarcoidosis PLAN: Dr. Zbigniew Fuller did discuss and review with the patient all treatment options including surgical versus nonsurgical options. Patient does wish to proceed with the above-stated procedure. Potential risks, benefits, and complications of the procedure were discussed in detail including but not limited to , infection, nerve and blood vessel damage, persistent pain, numbness, tingling, paresthesias, blood clot, pulmonary embolism, and requirement for possible further surgery. The patient expressed full understanding and has no further questions for the doctor. Patient does agree to proceed with the above-stated procedure and has signed the surgery consent form. We discussed the current risks associated with COVID 19. This does include the risk of exposure while in the hospital. Patient was reassured local hospitals have low infection rates and are taking all necessary precautions to avoid exposure to patients. In addition, we discussed strategies that can be used to help limit exposure including those that limit the patient's time in the hospital. Also using strategies to limit the patient's need for continued inpatient services after being discharged from the hospital. Patient was notified that we will need to comply with any screening or testing the hospital wishes to perform or that surgery may be delayed for any positive results. This dictation was created using voice recognition software. Phonetic and/or grammatical errors may exist. ___ I have re-examined the patient. There are no clinical changes since date of exam. ___ See progress notes for changes. ___ Dictated on admission Date: Time: Signature:
[2021-09-05 09:16] LABS: Hematocrit 39.6 % (37-47); Hemoglobin 13.2 g/dL (12.0-15.0); Mean Corp Hgb Conc 33.3 g/dL (32-36); Mean Corpuscular Hgb 31.6 pg (27.0-32.0); Mean Corpuscular Volume 94.7 fL (81-99); Platelet Count 369 K/mm3 (150-450); RBC Distribution Width CV 13.8 % (11.6-14.6); Red Blood Count 4.18 M/mm3 (4.2-5.4); White Blood Count 9.2 K/mm3 (4.4-11.0)
[2021-09-05 09:33] LABS: Magnesium 2.5 mg/dL (1.6-2.6)
[2021-09-05 09:35] LABS: Anion Gap 6 (5-15); BUN 28 mg/dL (7-18); BUN/Creat Ratio 31.1 RATIO (10-20); Calcium,Total 8.9 mg/dL (8.5-10.1); Chloride 106 mmol/L (98-107); EST Glomerular Filtration Rate 65 mL/min (>60); Est Glom Filt Rate - Afr Amer 79 mL/min (>60); Glucose 109 mg/dL (74-106); Sodium Level 139 mmol/L (136-145)
[2021-09-18] VITALS (15 sets, daily range): BP systolic 94–129; BP diastolic 43–98; PULSE 56–72; RESP 13–18; TEMP 35.7–36.4; O2SAT 92–100; BMI 32.0
[2021-09-18] MEDS: Lactated Ringers 1,000 ML 999 ML IV ×2 (10:45→13:00)
[2021-09-18] MEDS: Celecoxib 200 MG Capsule 400 MG PO (10:46)
[2021-09-18] MEDS: Acetaminophen 500 MG Tablet 1000 MG PO ×2 (10:46→22:45)
[2021-09-18] MEDS: Gabapentin 600 MG Tablet PO (10:46)
[2021-09-18 10:55] LABS: Bedside Glucose 68 mg/dL (70-110)
[2021-09-18] MEDS: Cefazolin 2 GM in 0.9% Normal Saline 100 ML IV (12:42)
[2021-09-18] MEDS: Lactated Ringers 1,000 ML 125 ML IV (13:00)
[2021-09-18] MEDS: TXA 1000mg in NS100 100ml (IVPB at Incision) 660 MG IV (13:01)
[2021-09-18] MEDS: TXA 1000mg in NS100 100ml (IVPB at Closure) 660 MG IV (14:01)
--- NOTE | 2021-09-18 14:07 | RAD_ITS ---
STUDY: X-RAY - RIGHT KNEE REASON FOR EXAM: Female, 71 years old. TKA. In PACU. TECHNIQUE: 2 view(s) of the knee. COMPARISON: Right knee, 10/26/2013. FINDINGS: There is a total knee replacement. The prosthetic components are intact and articulate normally with each other. There is no evidence of loosening from the underlying bone. There is no evidence of osseous fracture or destructive osseous pathology. There is air and swelling in the anterior soft tissues with midline skin clips. RAD/Knee 1 or 2 Views IMPRESSION: Status post right TKA. Electronically Signed: Mahendra Bedoya DO at 16:10 EST Tel [phone], Service support ,
--- NOTE | 2021-09-18 14:10 | OP.PCM_ITS ---
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 Biomet Vanguard CR 62.5 mm femur, right 2. Biomet Vanguard keeled tibial baseplate 71 mm 3. Mike Biomet Vanguard vitamin E 10 mm poly 4. Biomet 34 mm thin patella Brief history operative indications: 71-year-old f with history of right knee osteoarthritis with radiographic findings with loss of joint space, osteophyte formation and subchondral sclerosis. Failed conservative measures as mentioned in the H&P. Discussion of total knee arthroplasty as well as risk and benefits were discussed the patient including but not limited to blood loss, DVTs, PEs, neurovascular damage, gen eral risk of anesthesia including loss of life, and stiffness or instability were discussed with patient. Patient demonstrated understanding and was able to sign informed consent. Procedure: On the date of procedure patient's right lower extremity was marked in the preoperative area. The patient was then taken back to the operating room where the patient was placed on the table in the supine position. All bony prominences were identified a well-padded. Anesthesia assumed control of the C-spine and airway and remained controlled throughout the remainder of the procedure. A tourniquet was placed on the right upper thigh and the leg was prepped in a sterile fashion. The surgeon then scrubbed at this time. Upon reentering the room the right lower extremity was draped in a standard orthopedic fashion. A timeout was then called and everyone agreed upon the side, the site, the procedure to be performed, patient's identity and antibiotics given. Esmarch bandage was used to exsanguinate the extremity and the tourniquet was placed up to 250 mmHg with the knee in flexion. A midline skin incision was made and sharp dissection was taken down through skin subcutaneous tissue and fat. The standard medial parapatellar incision was made and the patella was subluxed laterally. The standard deep MCL release was done and the fat pad was resected. Next our attention was directed to the femur. Navigation pins were placed, navigation was registered. The distal femoral cutting block was pinned into place and 9 mm of distal femur resection was completed. The distal femoral cut was verified with navigation. The knee was then placed in deep flexion in the standard Biomet sizing guide was used to place the femoral component in 3? external rotation based on the posterior condyles. A size 62.5 4-in-1 cutting block was selected and pinned into place. The anterior cut was then made and checked for notching. The subsequent anterior chamfer cuts, posterior condylar cuts and posterior chamfer cuts were made while ensuring the MCL and LCL were protected. Our attention was then turned to the tibia where the navigation pins were placed, navigation was registered. [employer] tibial cutting guide was used to make the appropriate tibial cut 90 degrees from the mechanical axis. Navigation was then used to verify the cut. A size 71 mm tibial base plate was selected. the knee was flexed to 90 degrees and the soft tissues and posterior osteophytes were removed from the joint. 40 cc of the periarticular injection was injected into the posterior medial corner of the joint. The appropriate trials were then placed on the femur and tibia. A trial polyethylene was trialed to ensure proper balancing and stability of the knee. Patella tracking, was then verified and corrected appropriately as needed. The appropriate tibial internal rotation was then marked with a bovie. Our attention was then directed to the patella. The patella was everted and a flat resection was made. The lug holes were drilled and the patella trial was placed. Patellar tracking was checked and deemed appropriate. Once we were happy lug holes were drilled for the femur and trial components were removed. the tibia was subluxed and pinned into place and the keel was punched and the canal was reamed. Final components were verified and opened, and cement was mixed in a vacuum. Mantis Deposition Simplex cement was used. The wound was copiously irrigated with normal saline. When the cement was ready the components were cemented into place starting with the tibia, femur and finally the patella. The trial poly component was placed and the knee was placed in full extension. All excess cement was removed in the process. Once the cement had cured the tracking, alignment and balance were verified and a size 10 mm polyethylene component was placed. Once the final components were placed the wound was copiously irrigated with normal saline solution and the periarticular injection was given. The wound was closed in a layer platt fashion using #1 vicryl interrupted sutures for the arthrotomy, 2-0 interrupted Vicryl suture for the subcuticular layer and osmin for final skin closure. A sterile compressive dressing was then placed. The patient was then awakened from anesthesia, transferred to the [place] and transferred to the PACU for recovery. Post op plan DVT ppx: ASA 81mg BID, thigh high compression stockings Follow up: in office in 2 weeks for wound check PT: to start POD #0 at hospital, outpatient PT should be arranged. My physician addictions counselor assistant was a vital part of this case. He was important in appropriate retraction during the case, and protection of soft tissues during bony cuts. His intimate knowledge of the case and my steps aided in safe and expedient completion of the procedure as well as appropriate position of the leg during the case. He was also vital in assisting with closure under my direct supervision. Due to the complexity of this case robotic arm was used to assist in the surgery to improve accuracy and clinical outcomes. Complications No intraoperative complications Admit VTE Documentation VTE Present on Admission: No VTE Mechan Device Prophylaxis: SCD's and Thigh High MANJIT Hose VTE Pharm Prophylaxis ordered?: Yes
[2021-09-18 15:41] LABS: Bedside Glucose 130 mg/dL (70-110)
[2021-09-18] MEDS: Cefazolin 1 GM/50 ML BAG IV (16:45)
--- NOTE | 2021-09-18 19:00 | NURSING ---
Emergency documentation initiated 09/18/21 @ 6415
[2021-09-18] MEDS: Ketorolac 15 MG/ML Vial IV (22:44)
[2021-09-18] MEDS: 0.9% Saline Lock 10 ML Syringe IV (22:45)
[2021-09-19] MEDS: Lactated Ringers 1,000 ML 125 ML IV (02:19)
[2021-09-19 02:25] VITALS: BP 108/56; PULSE 66; RESP 18; TEMP 36.7; O2SAT 96
[2021-09-19] MEDS: Cefazolin 1 GM/50 ML BAG IV (02:31)
[2021-09-19] MEDS: Acetaminophen 500 MG Tablet 1000 MG PO ×2 (05:04→13:12)
[2021-09-19] MEDS: Levothyroxine 50 MCG Tablet PO (05:04)
[2021-09-19] MEDS: Ketorolac 15 MG/ML Vial IV (05:04)
[2021-09-19 05:45] VITALS: BP 110/60; PULSE 56; RESP 16; TEMP 36.8; O2SAT 100
[2021-09-19 08:00] VITALS: BP 140/64; PULSE 67
--- NOTE | 2021-09-19 09:03 | PN.ORTHO_ITS ---
Subjective Subjective The patient was sitting in bed upon examination. Patient denies any chest pain, shortness of breath, dizziness, lightheadedness, nausea or vomiting, or calf pain. Pain is controlled on medications. No adverse overnight events. Overall patient is doing very well with her right knee. Pain has been controlled. Chaitanya rosado on August 07, 2021 underwent same surgery on the left knee. She has no complaints on the left knee. Patient has been up walking to the bathroom with no complaints. She has not participated in physical therapy this morning yet. Objective Data Objective Data Vital Signs: Vital Signs Temp Pulse Resp BP Pulse Ox 98.2 F 67 16 140/64 H 100 09/19/21 05:45 09/19/21 08:00 09/19/21 05:45 09/19/21 08:00 09/19/21 05:45 Oxygen Flow Rate (L/min) 4 Oxygen Delivery Method Room Air Weight: 82 kg Body Mass Index (BMI) 32.0 Intake & Output: Intake and Output for Last 24 Hours 09/17/21 09/18/21 09/19/21 23:59 23:59 23:59 Intake Total 3985 / 3985 450 / 450 Balance 3985 / 3985 450 / 450 Lab / Micro Data Result Diagrams: 09/05/21 08:35 09/05/21 08:35 Labs: Laboratory Results - last 24 hr 09/18/21 10:27: POC Glucose 68 L 09/18/21 15:16: POC Glucose 130 H Micro: Microbiology 09/05/21 08:35 Swab (Method) Nasal Screen MRSA/MSSA - Final Radiography Diagnostic Testing: Radiology Impression Knee X-Ray 09/18/21 14:07 IMPRESSION: Status post right TKA. Electronically Signed: Mahendra Bedoya DO at 16:10 EST Tel [phone], Service support , Physical Exam Narrative Vital signs stable and afebrile. Patient is able to plantarflex and dorsiflex actively. Sensation is intact to light touch to saphenous, sural, superficial and deep peroneal, and tibial distribution. Main dressing has minimal drainage over the middle one third with remaining dressing clean dry and intact. Mild drainage over the distal pin site dressing. Negative Homans bilaterally, negative signs and symptoms of DVT. Const alert, oriented x3 and no apparent distress Assessment & Plan Assessment/Plan (1) Status post total right knee replacement: PLAN: 1. S/P right computer navigated total knee arthroplasty POD #1 2. Continue Pain Medications: Tylenol, meloxicam, oxycodone 3. DVT Prophylaxis: Take 81 mg aspirin twice daily for 4 weeks postoperatively for DVT prophylaxis 4. PT/OT: Weightbearing as tolerated 5. H & H: No labs currently, asymptomatic. Orders for lab work were placed 6. Encouraged Incentive Spirometry 7. Disposition: Plan will be for discharge home today as long as lab work is within normal limits. Patient will also go through physical therapy this morning. Patient has a majority of her medications from previous surgery. Meloxicam and famotidine will be called in to her primary pharmacy at [facility]. She will follow-up per postoperative instructions. I have reviewed the [place] Automated Rx Reporting System (OARRS) report for this patient for refill pattern and other prescriber involvement as part of the appropriate surveillance for the provision of acute and chronic controlled med ications. The report was requested and reviewed on the date of this entry and was considered in the prescribing process.
[2021-09-19] MEDS: Cholecalciferol (VIT D3) 25 MCG TABLET (1,000 UNITS) 125 MCG PO (09:04)
[2021-09-19] MEDS: Multivitamins,Ther W-Minerals Tablet 2 TABLET PO (09:04)
[2021-09-19] MEDS: Aspirin 81 MG TAB.CHEW PO (09:04)
[2021-09-19] MEDS: Multivitamin (Healthy Eyes) Capsule 1 CAP PO (09:05)
[2021-09-19] MEDS: Sertraline 50 MG Tablet PO (09:05)
[2021-09-19] MEDS: Atenolol 25 MG Tablet 12.5 MG PO (09:05)
[2021-09-19 09:10] VITALS: BP 108/56; PULSE 93; RESP 18; TEMP 36.9; O2SAT 93
--- NOTE | 2021-09-19 09:14 | PCM.DC ---
Discharge Instructions Diet Discharge Diet: No restrictions Activity Discharge Activity: May Not Drive (while taking narcotic pain medications.) May shower in (days): 1 (Please turn dressing away from water. Okay to get wet as long as dressing is intact to skin.) Ice area for (Minutes): 20 (Every 1-2 hours while awake. Please place barrier between the skin and ice pack.) Weight Bearing Status: Weight bearing as tolerated Keep extremity elevated above heart level: Operative Extremity Dressing / Incision Call your doctor if your incision/area has: Continuous Slow Oozing, Sudden Increased Bleeding, Increased Pain/ Swelling, Increased Redness and Foul Smelling Discharge Call your doctor if you observe: Fever of 101 or Higher, Coldness, Increased Pain, Numbness or Tingling, Change in Color, Shortness of breath, Chest pain, Calf discomfort and Uncontrolled pain Remove Dressing in: 4 days (Okay to remove dressing on September 23, 2021) Additional Dressing/Incision Instructions:: Follow [facility] Post-op Instructions. Once postoperative dressing has been removed only use gentle soap and water over the incision. Do not use any ointments, Neosporin, salves, alcohol pads over the incision for 6 weeks postoperatively. Do not submerge underwater for 6 weeks postoperatively. Continue with MANJIT hose/elastic stockings for 2 weeks postoperatively. May remove at nighttime but needs to be placed back on the leg during the day. Do NOT use alcohol with narcotic pain medication. Do NOT make important decisions while taking narcotic medication. If you have problems with taking your medication (rash, itching, nausea, etc.) call the office at once. Follow Up Care Test Results: Test results from this visit will be discussed in further detail at your follow-up appointment, if applicable. Discharge Plan Admission Admit Date/Time: 09/18/21 19:52 Attending Provider: Zbigniew Fuller Primary Care Provider: Windy Hylton Discharge Orders/Prescriptions Prescriptions: New acetaminophen 500 mg Tablet 1,000 mg PO Q8 14 Days RF: 0 famotidine 20 mg Tablet 20 mg PO DAILY Qty: 30 RF: 0 aspirin 81 mg Tablet,Chewable 81 mg PO BIDCM Qty: 0 RF: 0 meloxicam 7.5 mg Tablet 7.5 mg PO BID Qty: 60 RF: 0 oxycodone 5 mg Tablet 5 - 10 mg PO Q4H PRN PRN (Reason: Pain Score 4-10) 7 Days Qty: 0 RF: 0 sennosides-docusate sodium [Stool Softener-Stimulant Laxat] 8.6-50 mg Tablet 2 tab PO BID Qty: 0 RF: 0 Continued atenolol 25 mg tablet 12.5 mg PO DAILY RF: 0 levothyroxine 50 mcg Tablet 50 mcg PO DAILY RF: 0 sertraline 50 mg Tablet 50 mg PO DAILY RF: 0 PreserVision Lutein 226 mg-200 unit -5 mg-0.8 mg Capsule 1 cap PO BID RF: 0 Centravites 0.4-162-18 mg Tablet 2 tab PO DAILY RF: 0 cholecalciferol (vitamin D3) [Vitamin D3] 125 mcg (5,000 unit) Tablet 125 mcg PO DAILY RF: 0 Discontinued turmeric 400 mg Capsule 1,000 mg PO DAILY RF: 0 meloxicam 7.5 mg Tablet 7.5 mg PO BIDCM Qty: 0 RF: 0 aspirin 81 mg Tablet,Chewable 81 mg PO BIDCM Qty: 0 RF: 0 acetaminophen 500 mg tablet 500 mg PO PRN PRN (Reason: Pain) RF: 0 Disposition Discharge Orders: Discharge Patient (Routine); Ordered 09/18/21 Ordered By: Dr. Zbigniew Fuller
[2021-09-19] MEDS: Famotidine 20 MG Tablet PO (10:38)
[2021-09-19 10:44] LABS: Hematocrit 32.9 % (37-47); Hemoglobin 10.3 g/dL (12.0-15.0); Mean Corp Hgb Conc 31.3 g/dL (32-36); Mean Corpuscular Hgb 30.3 pg (27.0-32.0); Mean Corpuscular Volume 96.8 fL (81-99); Mean Platelet Vol. 9.8 fl (6.2-12.0); Platelet Count 275 K/mm3 (150-450); RBC Distribution Width SD 49.7 fl (35.1-43.9); White Blood Count 15.4 K/mm3 (4.4-11.0)
[2021-09-19 10:55] VITALS: O2SAT 93
[2021-09-19 11:18] LABS: Anion Gap 8 (5-15); BUN 20 mg/dL (7-18); BUN/Creat Ratio 18.9 RATIO (10-20); Calcium,Total 8.4 mg/dL (8.5-10.1); Chloride 105 mmol/L (98-107); Creatinine, Serum 1.06 mg/dL (0.55-1.02); EST Glomerular Filtration Rate 54 mL/min (>60); Est Glom Filt Rate - Afr Amer 65 mL/min (>60); Glucose 100 mg/dL (74-106); Potassium 4.2 mmol/L (3.5-5.1); Sodium Level 138 mmol/L (136-145)
[2021-09-19] MEDS: oxyCODONE 5 MG Tablet PO (11:46)
--- NOTE | 2021-09-19 12:00 | CASEMGMT ---
RN CM PROPERTY INVESTOR CM to room to meet with patient for initial transition planning/care coordination assessment. AMY HERNANDEZ introduced self and role at [facility]. Pt voices understanding and consents to assessment at this time. Pt sitting up in chair in room in no distress at this time. Pt is A/O at this time and answers all questions appropriately. Care providers, pharmacy, and demographics verified/updated at this time. PCP: Dr Hylton Specialists: Dr Fuller-ortho, Dr Laurent-pulmonology, Dr Candelario-dermatology Preferred Pharmacy: [facility] Insurance: [facility], MMO Prescription Benefit: Yes Living Will/HPOA: Has both. , Sandeep, is HPOA LNOK: , Sandeep Living Arrangements: Lives w/ in 2-story home w/2 steps to enter. Independent. Transportation: Pt states drives self and states no transportation concerns at this time. also drives DME: States has the following DME: shower chair, RTS, cane, walker Pt states no need for further DME at this time. HHC/SNF: No history of either. Denies need for HHC. Pt is scheduled for OP therapy @ [facility] for tomorrow 09/20 @ 1300. She is aware. Pt wishes to return home w/OP therapy and states has no concerns with going home at time of discharge. CM to follow for any discharge planning/needs. Pt voices no concerns/needs at this time. Advised pt to ask for CM if any questions/concerns/needs arise. Voices understanding. PLAN: Home w/OP therapy @ [facility] Arnoldo STREETER RN, CM
[2021-09-19 13:05] VITALS: BP 98/61; PULSE 65; RESP 16; TEMP 37.2; O2SAT 98
== END 2021-09-19 13:50 | disposition home or self-care (01) ==
LOC: SDC 09-19 11:06 → MS2 09-19 11:06
PROVIDERS: Anesthesiology; Physician Assistant Surgical; Admitting Provider Specialist; PCP Internal Medicine; Referring Provider Specialist; Visit Provider Specialist
PROC: (CPT 27447; principal; 2021-09-18 12:00)
DX: M17.11 Unilateral primary osteoarthritis, right knee (principal); Z96.652 Presence of left artificial knee joint; E03.9 Hypothyroidism, unspecified; D86.9 Sarcoidosis, unspecified; I10 Essential (primary) hypertension; Z79.899 Other long term (current) drug therapy; Z79.82 Long term (current) use of aspirin; Z79.890 Hormone replacement therapy; F41.9 Anxiety disorder, unspecified
CPT/HCPCS: 27447; S2900; 64447; 36415; 73560; 80048; 82962; 83735; 85027; 87081; 96361; 96365; 96375; 96376; 97110; 97116; 97162; 97166; 97530; 99218; C1776; J7120; A4216; G0378; J2405

== ENCOUNTER → 2022-06-10 | Outpatient (CLI) | payer MEDICARE, OTHER, SELFPAY ==
--- NOTE | 2022-06-10 12:30 | BI_ITS ---
MAMMOGRAPHY - BILATERAL SCREENING REASON FOR EXAM: Female, 72 years old. Routine annual screening examination. PERTINENT HISTORY: Non-contributory. TECHNIQUE: Digital bilateral breast eulalio (3D mammographic acquisition) in the CC and MLO projections. 2-D mediolateral oblique (MLO) and craniocaudad (CC) views of both breasts were obtained. CAD: Full Field Digital Mammography with Computer Added Detection was performed. COMPARISON: Comparison is made with prior examination of 05/27/2021 and 09/03/2017. FINDINGS: Breast Composition: There are scattered areas of fibroglandular density. There are no dominant masses or suspicious calcifications. Stable 1.2 cm well-defined nodule in the upper outer aspect of the left breast. This is suggestive of a small intramammary lymph node. Stable 8.8 mm well-defined nodule in the inferior medial portion of the left breast. Stable benign appearing bilateral axillary No other significant abnormalities are identified. There has been no significant change since the prior study. BI/SCRN MAMM (CAD)W/EULALIO BILAT IMPRESSION: Stable bilateral screening mammogram. Yearly follow-up mammogram recommended. (A) ASSESSMENT CATEGORY: BIRADS Category 2: Benign. A letter regarding these results will be sent to the patient by the facility within 30 days. Approximately 10% of breast cancers are not detected by mammography. A normal mammogram should not delay biopsy of a clinically suspicious abnormality. [id number] Electronically Signed: Cruzito Briggs MD at 13:44 EDT ,
== END | disposition home or self-care (01) ==
LOC: OPBI 12:29
PROVIDERS: PCP Internal Medicine; Visit Provider Internal Medicine
DX: Z12.31 Encounter for screening mammogram for malignant neoplasm of breast (principal); N63.21 Unspecified lump in the left breast, upper outer quadrant; N63.24 Unspecified lump in the left breast, lower inner quadrant
CPT/HCPCS: 77063; 77067

== ENCOUNTER → 2022-06-16 | Outpatient (CLI) | payer MEDICARE, OTHER, SELFPAY ==
--- NOTE | 2022-06-16 07:49 | US_ITS ---
STUDY: ULTRASOUND BREAST - RIGHT REASON FOR EXAM: Female, 72 years old. Abnormal screening mammogram. TECHNIQUE: Axial and longitudinal images of the RIGHT breast were performed with a high resolution ultrasound transducer. # OF IMAGES: 35 COMPARISON: Comparison is made with prior mammogram dated 06/10/2022. FINDINGS: RIGHT Breast: There is a 9 mm x 11 mm 9 mm slightly irregular nodule with increased vascularity in the right axilla. Biopsy recommended. IMPRESSION: Irregular 9 mm x 11 mm x 9 mm nodular density with increased vascularity in the right axilla. Biopsy recommended. ASSESSMENT CATEGORY: BIRADS Category 4: Suspicious - Biopsy Should Be Considered. A letter regarding these results will be sent to the patient by the facility within 30 days. Electronically Signed: Cruzito Briggs MD at 15:06 EDT , STUDY: ULTRASOUND BREAST - LEFT REASON FOR EXAM: Female, 72 years old. Abnormal screening mammogram. TECHNIQUE: Axial and longitudinal images of the LEFT breast were performed with a high resolution ultrasound transducer. # OF IMAGES: 35 COMPARISON: Comparison is made with prior mammogram dated 06/10/2022. FINDINGS: LEFT Breast: There is a 2.3 cm x 1 cm x 0.8 cm lymph node in the left axilla. A central hilum is seen. This has the appearance of a normal lymph node although due to its size, a biopsy is recommended. US/Breast Limited Unilateral IMPRESSION: Enlarged left axillary lymph node as described. Biopsy recommended. ASSESSMENT CATEGORY: BIRADS Category 4: Suspicious - Biopsy Should Be Considered. A letter regarding these results will be sent to the patient by the facility within 30 days. Electronically Signed: Cruzito Briggs MD at 15:07 EDT ,
== END | disposition home or self-care (01) ==
LOC: OPUS 07:48
PROVIDERS: PCP Internal Medicine; Referring Provider Internal Medicine; Visit Provider Internal Medicine
DX: R92.8 Other abnormal and inconclusive findings on diagnostic imaging of breast (principal)
CPT/HCPCS: 76642

== ENCOUNTER 2022-06-19 09:55 | Outpatient (CLI) | payer MEDICARE, OTHER, SELFPAY ==
--- NOTE | 2022-06-19 08:40 | LYMN_PTH ---
PATIENT: NINA [facility]ORDON [id number] AGE/SX: 72/F ROOM: RE06/19/[address]: Dr. Trell Grossman MD : 1950 BED: DIS: 06/19/2022 SPEC #: [id number] RECD: 06/19/22 09:11 STATUS: KEI RELeslie #: [id number] BIANCA: 06/19/22 08:[address]: Trell Grossman DEPT: SURGICAL PATHOLOGY RECD BY: Maribel Owens ENTERED: 06/19/22 10:23 SP TYPE: LYMPH NODE OTHR DR: Dr. Windy Hylton, DO Tissues: LYMPH NODE BIOPSY Procedures: Surgery Specimen Level IV HEADER OPERATION: Left axillary lymph node biopsy PRE-OP DIAGNOSIS: Left axillary lymph node enlargement TISSUE SUBMITTED: Left axillary lymph node MICROSCOPIC DIAGNOSIS Left axillary lymph node, needle core biopsy: Fibrofatty tissue. No lymph node tissue identified. AM:alfonso 06/20/2022 COMMENT FLOW analysis is reported as non-viable tissue present. MICROSCOPIC DESCRIPTION Slides are reviewed. GROSS DESCRIPTION Received in fixative is one container labeled with the patient's name and designated left axillary lymph node. The specimen consists of multiple elongated fragments of yellow tissue that in aggregate measure 0.6 x 0.1 x <0.1 cm. Chemist Instrumentation portions are submitted for flow cytometry study. Chemist Instrumentation touch prep smears are also prepared. The remainder of the tissue is submitted in one cassette. / AM:alfonso 06/19/2022 TC:5 [facility]: [id number]
== END 2022-06-19 23:59 | disposition home or self-care (01) ==
LOC: LABSPEC 09:57
PROVIDERS: PCP Internal Medicine; Visit Provider Surgery
DX: M79.89 Other specified soft tissue disorders (principal)
CPT/HCPCS: 88305

== ENCOUNTER → 2022-06-23 | Outpatient (CLI) | payer MEDICARE, OTHER, SELFPAY ==
--- NOTE | 2022-06-23 | AXNB_PTH ---
PATIENT: NINA GORDON LOC: [facility] U#:[id number] AGE/SX: 72/F ROOM: RE06/23/[address]: Dr. Trell Grossman MD : 1950 BED: DIS: 06/23/2022 SPEC #: [id number] RECD: 06/23/22 16:37 STATUS: KEI RELeslie #: [id number] BIANCA: 06/23/22 00:[address]: Trell Grossman DEPT: SURGICAL PATHOLOGY RECD BY: Kaleb Lozano ENTERED: 06/24/22 09:12 SP TYPE: AX NODE BX OTHR DR: Dr. Windy Hylton, DO Tissues: Axillary lymph node, NOS Procedures: Surgery Specimen Level IV HEADER OPERATION: Excision right axillary mass PRE-OP DIAGNOSIS: Right axillary mass TISSUE SUBMITTED: Right axillary tissue MICROSCOPIC DIAGNOSIS Right axillary tissue, biopsy: Metastatic carcinoma consistent with breast primary. See comment. AM:alfonso 06/25/2022 COMMENT Immunohistochemistry ([id number]) supports the above diagnosis. Minimal lymphoid tissue is noted in the biopsy. It is uncertain if this represents lymph node involvement by carcinoma. This case was reviewed and diagnosis discussed with Dr. Barrett on 07/03/2022. This case was discussed with Dr. Hutchison of [facility] on 07/30/2022. MICROSCOPIC DESCRIPTION Slides are reviewed. GROSS DESCRIPTION Received in fixative is one container labeled with the patient's name and designated right axillary tissue. The specimen consists of two irregular fragments of pelletier-yellow fatty tissue ranging in size from 1.2 to 2 cm. The smaller fragment is sectioned to reveal yellow cut surfaces. The fragment is bisected and totally submitted in one cassette. The second fragment is bisected to reveal indurated cut surface in an area measuring 0.8 cm. The fragment is sectioned and totally submitted in cassette 2. / AM:alfonso 06/24/2022 TC:0 [facility]: [id number] ADDENDUM ADDENDUM ADDENDUM ADDENDUM ADDENDUM ADDENDUM ADDENDUM ADDENDUM ADDENDUM ADDENDUM ADDENDUM ADDENDUM 08/08/2022 15:26 ADDENDUM 09/30/2022 09:00 ADDENDUM 08/08/2022 15:26 ADDENDUM 08/08/2022 15:26 ADDENDUM 08/08/2022 15:26 ADDENDUM 08/08/2022 15:26 This addendum is added to incorporate an outside pathology consultation report. The case was examined at [facility] (#[id number]) and the following diagnosis was rendered. Right axillary tissue, biopsy/excision: -?Invasive lobular carcinoma, pleomorphic type, [place] grade 3, measuring 1.1 cm in greatest length. -?Lobular carcinoma in situ (LCIS), pleomorphic type. Please see complete above mentioned consultation report in EMR This addendum is added to incorporate an outside pathology consultation report. The case was examined at [facility] (#[id number]) and the following diagnosis was rendered. Right axillary tissue, biopsy: Metastatic carcinoma, consistent with breast primary. Please see complete above mentioned consultation report in EMR
--- NOTE | 2022-06-23 | IMM_PTH ---
PATIENT: NINA GORDON LOC: [facility] U#:[id number] AGE/SX: 72/F ROOM: RE06/23/[address]: Dr. Trell Grossman MD : 1950 BED: DIS: 06/23/2022 SPEC #: [id number] RECD: 06/25/22 13:17 STATUS: KEI REQ #: [id number] BIANCA: 06/23/22 00:[address]: Trell Grsosman DEPT: IMMUNOHISTOCHEMISTRY RECD BY: Zelda Abrams ENTERED: 06/25/22 13:19 SP TYPE: IMMUNO OTHR DR: Dr. Windy Hylton, DO Tissues: Axilla, NOS Procedures: NAPSIN A (add) CK20 (add) CK7 (add) CK8 (add) E-CAD (add) HER2 ANT (add) KI-67 (add) MAMM (add) P53 (add) OH (add) TTF1 (add) Vimentin (add) Pankeratin (add) GATA3 (add) P40 (add) ER (initial) S-100 (add) PHYSICIAN & INSTITUTION [place] [id number] SPECIMEN INFORMATION: Tissue Source: Right axillary mass Clinical Info: Right axillary mass Specimen Number: [id number] #1 CPT code: 26259, 51968 x13, 36807 x3 METHODOLOGY: Deparaffinized sections of prefer/formalin-fixed tissue or PAP/DQ stained slides are incubated with monoclonal/polyclonal antibodies/oligonucleotide probes. Localization is made via biotin free immunoperoxidase method. Appropriate controls are performed and reacted as expected. Results on target cell population are indicated in the following table: RESULTS: ANTIBODY / CLONE RESULT Block 1 E-Cad (ECH-6) positive, variable, dim Mammaglobin (31A5) negative GATA3 (L50-823) positive AE1-3 (AE1/AE3/PCK26) positive CK7 (OV-TL12/30) positive CK8 (79fvdcI45) positive CK20 (KS20.8) negative Vimentin (V9) negative S-100 (4C4.9) negative TTF-1 (8G7G3/1) negative Napsin A (Rabbit Polyclonal) negative P40 (BC28) negative P53 (DO-7) positive, 50% Ki-67 (30-9) positive, 65% MORPHOMETRIC ANALYSIS ER (clone 6F11) positive, >95%, strong OH (clone 16/1E2) positive, 85%, moderate to strong Her-2Neu (clone CB11) positive, 3+ The prognostic test for HER2 is performed on formalin-fixed paraffin embedded tissue. A 3+ (positive) staining pattern is defined as intense, homogeneous, complete, circumferential membranous staining in >10% of contiguous tumor cells. A similar weak (2+) staining pattern is interpreted as equivocal. NINI follow-up testing is recommended for all equivocal cases. Positivity/negativity for ER/OH is reported if > or < 1% of the tumor cells are immuno- reactive, respectively. The ASCO/CAP criteria is used for scoring. Reference: Journal of Clinical Oncology, 2013; 31:5693-2415 & 2010; 16:5240-8096. Duration of fixation: 35.5 Hrs; Sample Adequate: Yes. These assays have not been validated on decalcified tissues. Results should be interpreted with caution given the likelihood of false negativity on decalcified specimens. These tests were developed and their performance characteristics determined by [facility]. They may not have been cleared or approved by the U.S. Food and Drug Administration. The FDA has determined that such clearance or approval is not necessary. The above immunohistochemical/dualISH markers are ordered and reviewed by the Pathologist. INTERPRETATION: Right axillary tissue, biopsy: Metastatic carcinoma. See comment. AM:alfonso 06/26/2022 Comment: The IHC profile is consistent with breast primary.
== END | disposition home or self-care (01) ==
LOC: LABSPEC 16:50
PROVIDERS: PCP Internal Medicine; Referring Provider Surgery; Visit Provider Surgery
DX: C79.89 Secondary malignant neoplasm of other specified sites (principal); C50.911 Malignant neoplasm of unspecified site of right female breast; Z17.0 Estrogen receptor positive status [ER+]
CPT/HCPCS: 88305; 88341; 88342

== ENCOUNTER → 2022-07-07 | Outpatient (CLI) | payer MEDICARE, OTHER, SELFPAY ==
--- NOTE | 2022-07-07 09:45 | LES_PTH ---
PATIENT: [facility]INA [facility]ORDON [id number] AGE/SX: 72/F ROOM: RE07/07/[address]: Dr. Trell Grossman MD : 1950 BED: DIS: 07/07/2022 SPEC #: [id number] RECD: 07/07/22 12:03 STATUS: KEI RELeslie #: [id number] BIANCA: 07/07/22 09:[address]: Trell Grossman DEPT: SURGICAL PATHOLOGY RECD BY: Maribel Owens ENTERED: 07/07/22 13:22 SP TYPE: Lesion OTHR DR: Dr. Windy Hylton, DO Tissues: A - Skin of chest B - Skin of chest C - Skin of chest Procedures: Special Stain Group I Surgery Specimen Level IV GMS Stain (control) HEADER OPERATION: Punch biopsy chest skin lesions x3 PRE-OP DIAGNOSIS: Punch biopsy skin lesions x3 TISSUE SUBMITTED: A ? Left upper chest skin lesion tissue, B ? Left lower chest skin lesion tissue, C ? Right upper chest skin lesion tissue MICROSCOPIC DIAGNOSIS A. Left upper chest skin lesion, punch biopsy: Focal ulceration, associated acute inflammation epidermal spongiosis. Dermal chronic inflammation including perivascular chronic inflammation. Negative for malignancy. See comment. B. Left lower chest lesion, biopsy: Mild epidermal acute inflammation and mild to moderate dermal chronic inflammation including perivascular inflammation. Negative for malignancy. See comment. C. Right upper chest skin lesion, punch biopsy: Mild dermal chronic inflammation including perivascular inflammation. Negative for malignancy. See comment. SJ:rg 07/08/2022 COMMENT A-C. Special stain for fungi is negative for organisms; matched control is appropriate. Inflammatory infiltrates predominantly consist of lymphocytes with rare eosinophils. Correlation with clinical findings and appropriate follow up are necessary. Please make reference to previous specimen ([id number]) right axillary tissue, biopsy with diagnosis of ?metastatic carcinoma, consistent with breast primary.? Case has been reviewed in consultation with Dr. Lambert who concurs with the above diagnosis. IDC:AM MICROSCOPIC DESCRIPTION Slides are reviewed. GROSS DESCRIPTION A - Received in fixative is one container labeled with the patient's name and designated left upper chest skin lesion. The specimen consists of a light pelletier punch biopsy of skin measuring 0.5 mm in length and 0.6 cm in depth. The specimen is totally submitted in one cassette. B - Received in fixative is one container labeled with the patient's name and designated left lower chest skin lesion. The specimen consists of a discoid fragment of light pelletier tissue measuring 0.5 x 0.5 x 0.2 cm. The specimen is totally submitted in one cassette. C - Received in fixative is one container labeled with the patient's name and designated right upper chest skin lesion. The specimen consists of a light pelletier punch biopsy of skin measuring 0.5 mm in length and 0.6 cm in depth. The specimen is totally submitted in one cassette. / AM:alfonso 07/07/2022 TC:3 CPT: 41323 x3, 94523 x3
== END | disposition home or self-care (01) ==
LOC: LABSPEC 12:14
PROVIDERS: PCP Internal Medicine; Referring Provider Surgery; Visit Provider Surgery
DX: L08.9 Local infection of the skin and subcutaneous tissue, unspecified (principal)
CPT/HCPCS: 88305; 88312

== ENCOUNTER → 2022-08-21 | Outpatient (CLI) | payer MEDICARE, OTHER, SELFPAY ==
--- NOTE | 2022-08-21 13:01 | BD_ITS ---
STUDY: DUAL ENERGY X-RAY ABSORPTIOMETRY / DXA REASON FOR EXAM: Female, 72 years old. 627.8Menopausal postmenopausalBONE DENSITY REASON FOR EXAM TECHNIQUE: Bone Mineral Density (BMD) measurements of lumbar spine and bilateral hips were obtained. COMPARISON: Comparison is made with prior examination of 04/25/2020. FINDINGS: Lumbar Spine (L1-L4): g/cm2 (1.097) / T-score (0.7) / Z-score (3.0) Findings are suggestive of normal bone density with a low fracture risk. Left Femur Total: g/cm2 (0.769) / T-score (-1.4) / Z-score (0.3) Left Femoral Neck: g/cm2 (0.588) / T-score (-2.4) / Z-score (-0.3) Right Femur Total: g/cm2 (0.840) / T-score (-0.8) / Z-score (0.9) Right Femoral Neck: g/cm2 (0.71 to) / T-score (-1.2) / Z-score (0.8) The T-Scores on the most recent prior examination were: Lumbar Spine (L1-L4): There has been worsening of bone density since the previous examination. Left Femur Total: which represents an improvement of 4.4%. Right Femur Total: which represents an improvement of 2%. BD/Dexa Bone Density Study IMPRESSION: The patient is considered osteopenic as outlined below according to World Angel Organization (WHO) criteria with a high fracture risk. There has been improvement of bone density since the previous examination. Reference Information: The T-score is the number of standard deviations above or below the standard which is normal for young adults at their peak bone mineral density. The World Health Organization (WHO) interprets the T-scores as follows: Above -1 Normal bone density Between -1 and -2.5 Osteopenia Equal to / or below -2.5 Osteoporosis As a practical clinical guideline, osteopenia may be graded as follows: Mild -1 through -1.5 Moderate -1.6 through -2.0 Severe -2.1 through -2.4 The Z-score is the number of standard deviations above or below age-matched controls. A Z-score of less than -1.5 would be considered abnormal. References: 1. NIH Osteoporosis and Related Bone Diseases www osteo.org 2. International Society for Clinical Densitometry www iscd.org 3. National Osteoporosis Foundation www nof.org Electronically Signed: Cruzito Briggs MD at 9:51 EST ,
== END | disposition home or self-care (01) ==
LOC: OPBD 12:53
PROVIDERS: PCP Internal Medicine; Referring Provider Internal Medicine; Visit Provider Internal Medicine
DX: Z13.820 Encounter for screening for osteoporosis (principal); Z78.0 Asymptomatic menopausal state
CPT/HCPCS: 77080

== ENCOUNTER 2022-09-29 11:05 | Day surgery (SDC) | payer MEDICARE, OTHER, SELFPAY ==
--- NOTE | 2022-09-25 07:46 | EKG12_ITS ---
Test Reason : PRE OP Blood Pressure : / mmHG Vent. Rate : 075 BPM Atrial Rate : 075 BPM P-R Int : 158 ms QRS Dur : 076 ms QT Int : 390 ms P-R-T Axes : 008 -06 008 degrees QTc Int : 435 ms Normal sinus rhythm Normal ECG Confirmed by MELANIE RAO, ELMA ([id number]), society editor ANGELIA MUHAMMAD ([id number]) on 09/26/2022 12:55:37 PM Referred By: JASWANT Confirmed By:ELMA NAVARRO MD
[2022-09-29 11:33] VITALS: BP 136/74; PULSE 63; RESP 16; TEMP 36.8; O2SAT 100; BMI 30.2
[2022-09-29] MEDS: Lactated Ringers 1,000 ML 15 ML IV (11:38)
--- NOTE | 2022-09-29 13:43 | HP.PCM_ITS ---
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: No Is patient in pain?: No Allergies Penicillins Allergy (Severe, Verified 09/25/22 07:07) Rashlevofloxacin Allergy (Verified 09/25/22 07:07) Othererythromycin base Adverse Reaction (Verified 09/25/22 07:07) Upset Stomach Medications atenolol 25 mg tablet 12.5 mg PO DAILY 10/10/17 [History Confirmed 09/25/22] cholecalciferol (vitamin D3) 125 mcg (5,000 unit) tablet (Vitamin D3) 125 mcg PO DAILY 07/17/21 [History Confirmed 09/25/22] levothyroxine 50 mcg tablet 50 mcg PO DAILY 07/17/21 [History Confirmed 09/25/22] vit C 226 mg-vit E 90 mg-copper 0.8 mg-zinc oxide-lutein 5 mg capsule (PreserVision Lutein) 1 cap PO BID 07/17/21 [History Confirmed 09/25/22] aspirin 81 mg chewable tablet 81 mg PO DAILY 09/22/22 [History Confirmed 3] calcium 300 mg chewable tablet 300 mg PO BID 09/22/22 [History Confirmed 09/25/22] multivit with srpzflxl-jxgm-FG-lutein 8 mg iron-400 mcg-300 mcg tablet (Centrum Silver Women) 1 tab PO DAILY 09/22/22 [History Confirmed 09/25/22] sertraline 50 mg tablet (Zoloft) 50 mg PO DAILY 09/22/22 [History Confirmed 09/25/22] PFSH Medical History? Alcohol use Anxiety Arthritis Cancer Chronic cough Depression History of echocardiogram History of stress test Hypertension Migraine headache Non-smoker Sinusitis Thyroid disease Wears glasses Surgical History? Hx of total knee replacement S/P foot surgery S/P skin and subcutaneous tissue surgery Status post total left knee replacement Status post total right knee replacement Family History? Mother Cancer ?? ? bladderFather Myocardial infarction Hypertension Social History? Smoking Status:? Never smoker alcohol intake:? never substance use type:? does not use HPI HPI HPI: 72-year-old female who is being referred by Dr. Calin Barrett for surgical consultation for placement of a port.? The patient has a history of metastatic disease to the right axilla consistent with metastatic breast cancer.? She has a history of sarcoidosis and osteopenia and hypertension and hypothyroidism.? Most recently June 16 she had a left axillary lymph node biopsy which was benign.? June 23, 2000 122 she had an excisional right axillary mass resection showing metastatic carcinoma consistent with breast primary and minimal lymph node tissue.? She had punch biopsies of 3 areas of the chest [facility] 2021 which were negative for malignancy.? She had undergone reexcision of the right axillary tumor bed with sentinel node biopsy.? This was done by Dr. Gordillo [facility].? The primary apparently was in the right axillary subdermal area.? Upson nodes by patient report were negative.? She also had a radial scar of the right breast which was excised but that did not have malignancy.? She is just 2 weeks out from that surgery.? She is in need of IV access to facilitate chemotherapy. ROS General General: Yes breast cancer; No weight change, appetite, fatigue, colon cancer or weakness HEENT HEENT: No difficulty swallowing, eye injury, eye surgery, swollen glands or hoarseness Endo Endocrine: Yes thyroid disease; No diabetes mellitus, thyroid cancer, Hair loss, heat intolerance or cold intolerance Skin Skin: No rash or changing moles Breast Breast: No left breast lump, right breast lump, nipple discharge, breast pain, abnormal mammogram, abnormal US or breast enlargement Musc Musculoskeletal: Yes arthritis; No back problems, rheumatoid arthritis, gout or joint pain Cardio Cardiovascular: Yes high blood pressure; No murmur, pacemaker, heart disease, atrial fibrillation, heart attack, heart stent, palpitations, shortness of breat with exertion or chest pain Psych Psychiatric: No depression, anxiety or hearing voices Resp Respiratory: No shortness of breath, No sleep apnea, No cough, No COPD, No asthma, No emphysema and No wheezing Gastro Gastrointestinal: No abdominal pain, No nausea or vomiting, No diarrhea, No constipation, No blood in stool, No acid reflux, Yes hemorrhoids, No ulcers, No gallbladder problem and No black,tarry stools Donato Hematologic: No blood thinners, No blood disorders, No bleeding, No anemia and No blood clots Neuro Neurologic: No system reviewed and no additional complaints, except as documented, No as per HPI, No abnormal gait, No abnormal hearing, No abnormal movements, No abnormal speech, No behavioral changes, No burning sensations, No confusion, No convulsions, No disequilibrium, No dizziness, No localized weakness, No frequent falls, No headache(s), No lack of coordination, No loss of vision, No memory loss, Yes numbness, No other visual disturbances, No radicular pain, No restless legs, No sensory deficit, No syncope, Yes tingling, No tremor(s), No weakness and No other Exam Const General: cooperative, healthy appearing, comfortable and no acute distress [facility] Head: normal to inspection Eyes General: appearance normal, both eyes and all related structures Chest Chest palpation & inspection: normal inspection of the chest Resp Effort & Inspection: normal respiratory effort Auscultation: clear to auscultation bilaterally Cardio Rate: regular rate Rhythm: regular rhythm GI Inspection: normal to inspection Palpation: soft and no hepatosplenomegaly Neuro General: patient alert and patient awake Extrem General: no calf tenderness Psych Appearance: grossly normal Assessment and Plan Assessment and Plan (1) Metastatic carcinoma: ?Status:?Acute ?Plan: The patient is been referred to facilitate IV access in the form of a port.? Based upon all of work that she has had right axilla and breast and the need for future radiation therapy I am recommending that we place a left internal jugular port for her please she is aware of technique, benefit, risk, alternatives.? She has had an opportunity to ask and have questions answered.? She is on schedule for tomorrow.? I appreciate the opportunity of assisting with her surgical care. Copy: Dr. Calin Barrett and Dr. Raya Curtis M.D., F.A.C.S I have examined the patient and the H&P has been reviewed. There are no clinical changes since date of exam. Gatito Curtis M.D., F.A.C.S.
--- NOTE | 2022-09-29 13:44 | EX.PCM.DISCH ---
Discharge Instructions Procedure Port-A-Cath Diet Discharge Diet: No restrictions (Pain medication may cause nausea. You should typically eat light foods as you take your pain medication.) Activity Discharge Activity: Return to Normal Activity and May Shower (Leave the bandage on for 2-3 days. When you remove the bandage, leave the steri-strips intact until they fall off.) Additional Activity Instructions:: May not drive, work with heavy equipment, or sign legal documents for [address]. [address] if you are no longer taking narcotic pain medications. You may drive when you are no longer taking pain medications. Dressing / Incision Additional Dressing/Incision Instructions:: Leave the bandage on for 2-3 days. When you remove the bandage, leave the steri-strips intact until they fall off. Follow Up Care Please Follow Up With: Gatito Curtis MD When: Call [phone] for any difficulties. A routine office follow-up is typically not required unless you are having troubles please Discharge Plan Admission Attending Provider: Gatito Curtis Primary Care Provider: Raya An Discharge Orders/Prescriptions Prescriptions: No Action atenolol 25 mg tablet 12.5 mg PO DAILY levothyroxine 50 mcg Tablet 50 mcg PO DAILY PreserVision Lutein 226 mg-200 unit -5 mg-0.8 mg Capsule 1 cap PO BID cholecalciferol (vitamin D3) [Vitamin D3] 125 mcg (5,000 unit) Tablet 125 mcg PO DAILY sertraline [Zoloft] 50 mg Tablet 50 mg PO DAILY calcium 300 mg Tablet,Chewable 300 mg PO BID Centrum Silver Women 8 mg iron-400 mcg-300 mcg Tablet 1 tab PO DAILY aspirin 81 mg tablet,chewable 81 mg PO DAILY Rx Instructions: Take 81 mg aspirin twice daily for 4 weeks postoperatively for DVT prophylaxis L-Arginine(alpha-ketoglutarat) 350 mg Tablet Extended Release PO Referrals / Follow Up: Raya An DO [Primary Care Provider] - Disposition Disposition (needs filled in before D/C Order can be placed): Home, Self Care
[2022-09-29] MEDS: Clindamycin 900 MG/50 ML BAG 75 MG IV (14:44)
[2022-09-29] MEDS: Bupivacaine 0.5% PF 10 ML VIAL OPERA.SITE (15:03)
[2022-09-29] MEDS: Lidocaine 1% (30 ml sdv) 30 ML Vial (15:04)
--- NOTE | 2022-09-29 15:36 | OP.PCM_ITS ---
Report of Operation Date of Procedure: 09/29/22 Pre-Operative Diagnosis: Metastatic cancer suspected breast origin right upper outer quadrant breast axillary area Post-Operative Diagnosis: Same Surgery/Procedure Performed:: Left internal jugular 6 Mongolian PowerPort placement reference [id number], lot: [id number], expiry date 03/30/2023 Description of Surgical Findings:: Timeout and informed consent was obtained. 72-year-old female was taken to the operating room. She was placed upon the table. Shoulder roll was placed. Clindamycin 900 mg were given intravenously. The left neck and chest sterilely prepped and draped. 1% lidocaine mixed 50-50 with 0.5% Marcaine was used as a local anesthetic. Throughout the procedure approximately 30 cc was used. Local was instilled under ultrasound guidance and a micropuncture needle was used to gain access of the left internal jugular vein followed by Seldinger wire advancement 4. Fluoroscopy demonstrated good positioning. Local was instilled down upon the left chest wall approximately mid to mid inner clavicular line to avoid her bra strap and a subcutaneous pocket was created. The tubing was tunneled from the neck to the chest. A micropuncture sheath was inserted the wire and dilator removed 035 J-wire was inserted the catheter introducing sheath was inserted the dilator and wire removed the tubing was advanced through the sheath the sheath was split the tubing was positioned at the SVC atrial junction it was amputated the length connected to the port secured with a port attachment device. Port was placed in the pocket secured there with interrupted 2-0 silk. Skin edges approximated up to 3-0 Vicryl subdermal stitches. The neck was closed in up to 5-0 Vicryl subdermal stitch. Steri-Strips Telfa OpSite dressings applied. The port was accessed it aspirated easily it was flushed with saline and then 2 cc of heparinized saline. No apparent complications she tolerated the procedure well she was taken to the recovery room in satisfactory condition stat portable checks x-ray is pending. Specimens none. Drains none. Blood loss minimal. Gatito Curtis M.D., F.A.C.S. Surgeon: Gatito Curtis Type of Anesthesia: Local MAC Anesthesiologist: Lolis Treadwell
[2022-09-29 15:44] VITALS: BP 130/85; BP 136/74; PULSE 63; RESP 16; TEMP 36.4; O2SAT 98
--- NOTE | 2022-09-29 15:45 | RAD_ITS ---
STUDY: XR Chest 1 View 09/29/2022 3:42 PM REASON FOR EXAM: Female, 72 years old. CHEST PAIN Line placement COMPARISON: 07.22.21 TECHNIQUE: XR Chest 1 View FINDINGS: There is no demonstrated pleural abnormality. There is a left Port-A-Cath and/or mediport in place. The tip is in the superior vena cava. Normal heart size. Normal mediastinum. Normal mansoor. Prominent appearing increased interstitial lung markings. Normal visualized pulmonary arteries. There is atherosclerotic calcification of the aortic arch with tortuosity. There are diffuse degenerative changes of the visualized thoracic spine. There is degenerative osteoarthritis of the bilateral shoulders. There is no demonstrated abnormality of the visualized soft tissue structures of the upper abdomen. RAD/CXR for Line Placement IMPRESSION: There are no acute findings. Electronically Signed: Vineet Banerjee MD at 17:08 EST ,
[2022-09-29 15:50] VITALS: BP 108/59; BP 136/74; PULSE 60; RESP 16; O2SAT 96
[2022-09-29 15:55] VITALS: BP 136/74; BP 146/74; PULSE 57; RESP 16; O2SAT 97
[2022-09-29 16:05] VITALS: BP 132/83; BP 136/74; PULSE 54; RESP 16; TEMP 36.6; O2SAT 100
[2022-09-29 16:57] VITALS: BP 136/74
== END 2022-09-29 17:05 | disposition home or self-care (01) ==
LOC: SDC 11:06 → AC 11:07
PROVIDERS: PCP Internal Medicine; Referring Provider Surgery; Visit Provider Surgery
PROC: (CPT 36561; principal; 2022-09-29 14:15)
DX: Z45.2 Encounter for adjustment and management of vascular access device (principal); C79.9 Secondary malignant neoplasm of unspecified site; C50.911 Malignant neoplasm of unspecified site of right female breast; I10 Essential (primary) hypertension; D86.9 Sarcoidosis, unspecified; E03.9 Hypothyroidism, unspecified; F32.A Depression, unspecified; F41.9 Anxiety disorder, unspecified; Z79.82 Long term (current) use of aspirin; Z79.899 Other long term (current) drug therapy
CPT/HCPCS: 36561; 00532; 71045; 77001; 93005; J7120; J2405

== ENCOUNTER → 2023-02-06 | Outpatient (CLI) | payer MEDICARE, OTHER, SELFPAY ==
[2023-02-06 10:06] LABS: Alkaline Phosphatase 153 U/L (45-117); GGTP 25 U/L (5-55)
== END | disposition home or self-care (01) ==
LOC: LAB 08:27
PROVIDERS: PCP Internal Medicine; Referring Provider Internal Medicine; Visit Provider Internal Medicine
DX: R74.8 Abnormal levels of other serum enzymes (principal)
CPT/HCPCS: 36415; 82977; 84075

== ENCOUNTER → 2023-04-13 | Outpatient (CLI) | payer MEDICARE, OTHER, SELFPAY ==
[2023-04-13 18:09] LABS: Potassium 4.2 mmol/L (3.5-5.1)
== END | disposition home or self-care (01) ==
LOC: MTLAB 16:13
PROVIDERS: PCP Internal Medicine; Referring Provider Internal Medicine; Visit Provider Internal Medicine
DX: E87.5 Hyperkalemia (principal)
CPT/HCPCS: 36415; 84132

== ENCOUNTER → 2023-10-02 | Outpatient (CLI) | payer MEDICARE, OTHER, SELFPAY ==
[2023-10-02 10:36] LABS: Potassium 4.7 mmol/L (3.5-5.1)
== END | disposition home or self-care (01) ==
LOC: LABSPEC 10:09
PROVIDERS: PCP Internal Medicine; Referring Provider Internal Medicine; Visit Provider Internal Medicine
DX: E87.5 Hyperkalemia (principal)
CPT/HCPCS: 84132

== ENCOUNTER 2024-05-05 08:51 | Outpatient (RCR) | payer MEDICARE, OTHER, SELFPAY | END 2024-05-05 19:00 | disposition home or self-care (01) | LOC: PT 08:51 | PROVIDERS: PCP Internal Medicine; Referring Provider Internal Medicine; Visit Provider Internal Medicine | DX: M54.50 Low back pain, unspecified (principal) ==

== ENCOUNTER → 2024-09-21 | Outpatient (CLI) | payer MEDICARE, OTHER, SELFPAY ==
--- NOTE | 2024-09-21 16:13 | BD_ITS ---
STUDY: DUAL ENERGY X-RAY ABSORPTIOMETRY / DXA REASON FOR EXAM: Female, 74 years old. 627.8Menopausal postmenopausal BONE DENSITY REASON FOR EXAM TECHNIQUE: Bone Mineral Density (BMD) measurements of lumbar spine and bilateral hips were obtained. COMPARISON: Comparison is made with prior study dated August 21, 2022. FINDINGS: Lumbar Spine (L1-L4): g/cm2 (1.141) / T-score (1.5) / Z-score (3.8) Findings are suggestive of normal bone density with a low fracture risk. Left Femur Total: g/cm2 (0.787) / T-score (-1.3) / Z-score (0.6) Left Femoral Neck: g/cm2 (0.683) / T-score (-1.5) / Z-score (0.7) Right Femur Total: g/cm2 (0.837) / T-score (-0.9) / Z-score (1.0) Right Femoral Neck: g/cm2 (0.698) / T-score (-1.4) / Z-score (0.8) The T-Scores on the most recent prior examination were: Lumbar Spine (L1-L4): There has been improvement of bone density since the previous examination. Left Femur Total: which represents an improvement of 2.3%. Right Femur Total: which represents a worsening of 0.3%. BD/Dexa Bone Density Study IMPRESSION: The patient is considered osteopenic as outlined below according to World Angel Organization (WHO) criteria with a low fracture risk. There has been improvement of bone density since the previous examination. Reference Information: The T-score is the number of standard deviations above or below the standard which is normal for young adults at their peak bone mineral density. The World Health Organization (WHO) interprets the T-scores as follows: Above -1 Normal bone density Between -1 and -2.5 Osteopenia Equal to / or below -2.5 Osteoporosis As a practical clinical guideline, osteopenia may be graded as follows: Mild -1 through -1.5 Moderate -1.6 through -2.0 Severe -2.1 through -2.4 The Z-score is the number of standard deviations above or below age-matched controls. A Z-score of less than -1.5 would be considered abnormal. References: 1. NIH Osteoporosis and Related Bone Diseases www osteo.org 2. International Society for Clinical Densitometry www iscd.org 3. National Osteoporosis Foundation www nof.org Electronically Signed: Cruzito Briggs MD at 11:33 EST ,
== END | disposition home or self-care (01) ==
LOC: OPBD 16:07
PROVIDERS: PCP Internal Medicine; Referring Provider Internal Medicine; Visit Provider Internal Medicine
DX: Z13.820 Encounter for screening for osteoporosis (principal); Z78.0 Asymptomatic menopausal state
CPT/HCPCS: 77080

== ENCOUNTER → 2024-10-24 | Outpatient (CLI) | payer MEDICARE, OTHER, SELFPAY ==
--- NOTE | 2024-10-24 14:07 | CT_ITS ---
PROCEDURE: CTA CHEST W/WO CONTRAST REASON FOR EXAM: History of breast carcinoma. Follow-up examination. TECHNIQUE: CTA imaging of the chest with intravenous contrast. 3D reconstructions. CONTRAST: 100 mL of Isovue 370. COMPARISON: None. FINDINGS: Surgical clips are seen in the right axilla. Lymph nodes: No mediastinal hilar or axillary lymphadenopathy. Heart: Normal heart size. No pericardial effusion. Coronary artery calcification. RV/LV Diameter Ratio: N/A Thoracic Aorta: Atherosclerotic plaque formation of the descending thoracic aorta. Pulmonary Vessels: No evidence of acute pulmonary emboli through the major subsegmental branches. Most Proximal Level of Embolus (if embolus present): N/A Lungs and Airways: Mild increased markings at the lung bases suggestive of linear scarring. Pleura: No pleural effusion. No pneumothorax. Upper Abdomen: Visualized portions of the upper abdominal viscera are unremarkable. Bones: Degenerative changes of the thoracic spine. Dextroscoliosis. CT/CTA Chest W/WO Contrast IMPRESSION: One or more dose reduction techniques were used (e.g., Automated exposure contr ol, adjustment of the mA and/or kV according to patient size, use of iterative reconstruction technique). Reading Location: [id number]
== END | disposition home or self-care (01) ==
LOC: CT 14:07
PROVIDERS: PCP Internal Medicine; Referring Provider Internal Medicine; Visit Provider Internal Medicine
DX: I77.810 Thoracic aortic ectasia (principal)
CPT/HCPCS: 71275; Q9967

== ENCOUNTER 2025-03-19 09:30 | Inpatient (IN) | payer MEDICARE, OTHER, SELFPAY ==
[2025-03-19 09:30] VITALS: BP 121/65; PULSE 85; RESP 14; TEMP 36.3; O2SAT 100; BMI 30.6
[2025-03-19] MEDS: 0.9% Normal Saline (1000mL) 1,000 ML 1000 ML IV (10:08)
[2025-03-19 10:10] LABS: Hematocrit 40.6 % (37-47); Hemoglobin 13.5 g/dL (12.0-15.0); Immature Granulocytes Count 0.150 X10^3/uL (0.0-0.0); Mean Corp Hgb Conc 33.3 g/dL (32-36); Mean Corpuscular Volume 94.6 fL (81-99); Mean Platelet Vol. 10.6 fl (6.2-12.0); NRBC Flagged by Analyzer 0 % (0-5); POSITIVE DIFFERENTIAL YES; Platelet Count 246 K/mm3 (150-450); RBC Distribution Width CV 13.2 % (11.6-14.6); RBC Distribution Width SD 45.7 fl (35.1-43.9); Red Blood Count 4.29 M/mm3 (4.2-5.4); White Blood Count 17.0 K/mm3 (4.4-11.0)
[2025-03-19 10:11] LABS: Differential Indicated SCAN CRITERIA MET
[2025-03-19 10:14] LABS: Anion Gap 11 (5-15); BUN 15 mg/dL (4-19); BUN/Creat Ratio 17.2 RATIO (10-20); Calcium,Total 8.8 mg/dL (7.6-11.0); Carbon Dioxide 21.8 mmol/L (21.0-32.0); Chloride 102 mmol/L (98-108); Estimated Creatinine Clearance 1.97 ml/min (50-250); Glucose 119 mg/dL (70-99); Potassium 4.0 mmol/L (3.3-5.1)
[2025-03-19] MEDS: Clindamycin 600 MG/50 ML BAG 100 MG IV (10:24)
[2025-03-19] MEDS: metroNIDAZOLE 500 MG/100 ML BAG 100 MG IV ×3 (11:01→21:35)
--- NOTE | 2025-03-19 11:01 | CT_ITS ---
PROCEDURE: ABDOMEN/PELVIS WITH CONTRAST 03/19/2025 REASON FOR EXAM: ABD PAIN TECHNIQUE: ABDOMEN/PELVIS WITH CONTRAST Coronal and Sagittal reconstruction series were provided. CONTRAST: Isovue 370 VOLUME: 100 mL One or more dose reduction techniques were used (e.g., Automated exposure control, adjustment of the mA and/or kV according to patient size, use of iterative reconstruction technique. RADIATION DOSE SUMMARY: DLP: 1000 mGycm COMPARISON: None. FINDINGS: Lung bases: Right lower lobe atelectasis. Aortic valve calcifications. Liver: The liver is normal in size without suspicious hepatic mass. The major portal veins are patent. No intrahepatic biliary ductal dilation. Gallbladder: Radiopaque stone within the gallbladder neck, with dilation of the common bile duct measuring up to 1.8 cm. No gallbladder wall thickening or pericholecystic fluid. Spleen: Normal-size. Pancreas: Unremarkable. No pancreatic ductal dilation. Adrenals: Unremarkable. No adrenal mass. Kidneys: No hydronephrosis or nephrolithiasis. Bladder: Minimally distended and unremarkable. Reproductive Organs: Thickening of the endometrium, poorly evaluated on CT imaging. Bowel: Oral contrast material opacifies the distal small bowel and proximal colon. The bowel loops are nondilated. Severe wall thickening, fat stranding and enhancement with inflamed diverticula within the sigmoid colon. Ill-defined phlegmon within the left lower quadrant/pelvis (for example series 2, image 75). No discrete rim enhancing fluid collection visualized. No inflammatory mass in the expected region of the appendix. Trace pelvic fluid. No free air. Lymph nodes: No suspicious lymphadenopathy. Vasculature: Severe mixed plaque of the aortoiliac vessels. Bones: Mild leftward curvature of the lower lumbar spine. Thoracolumbar spondylosis. Bilateral fat containing inguinal hernias. CT/Abdomen/Pelvis WITH Contrast IMPRESSION: 1. Long segment diverticulitis of the sigmoid colon. Ill-defined phlegmon with out discrete abscess. 2. Cholelithiasis with dilation of the common bile duct. Correlation with righ t upper quadrant ultrasound may be useful for further evaluation. 3. Thickened, ill-defined endometrium, poorly evaluated on CT imaging. Correla tion with patient history and symptoms recommended. Pelvic ultrasound could be performed if not recently obtained for further evaluation. Reading Location: [id number]
[2025-03-19 11:30] VITALS: BP 122/65; PULSE 72; RESP 16; O2SAT 99
--- NOTE | 2025-03-19 12:25 | EX.ED.DYSGE1 ---
HPI History of Present Illness Chief Complaint: Abd Pain Detail of Chief Complaint: Patient presents because of diarrhea and now left lower quadrant abdominal Informant: patient Onset/Context/Timing Onset: Today (Left lower quadrant pain started today) and Yesterday (Diarrhea started yesterday) Context: Sudden Onset Timing: Continuous Quality: Pain Location: Left lower quadrant Current Severity: Mild Maximum Severity: Severe Worsened by: Walking, movement Relieved by: Nothing Associated Symptoms Associated Symptoms: Diarrhea Narrative Narrative: Patient is a 75-year-old woman. She has history of essential hypertension, nonrheumatic mitral valve regurgitation, nonrheumatic aortic valve insufficiency, abnormal echocardiogram, breast cancer 1A (who was told initially it was metastatic) and diverticulosis. Her GI specialist is Dr. John Paul Marion. Her last colonoscopy was 3 years ago. She presents because of diarrhea that started yesterday. She had 5 loose stools. Denied blood or mucus. She states it is water. She has not been on an antibiotic recently. Has had 2 loose bowel movements today. Since this morning she is complaining of left lower quadrant abdominal pain that is made worse with walking and movement. She denies dysuria, frequency, urgency or hematuria. Denies history of renal ureterolithiasis. She denies back or flank pain. She denies cough, shortness of breath or difficulty breathing. There is no history of trauma. She has not noted a rash. Prior similar symptoms: No Recent Illness/Hospitalization: No PFSH PFS Medical History Hypothyroidism Non-rheumatic mitral regurgitation Nonrheumatic aortic (valve) insufficiency Abnormal echocardiogram Essential hypertension Sarcoidosis Depression Alcohol use History of echocardiogram Cancer Skin lesions Wears glasses Anxiety Arthritis Migraine headache Non-smoker Chronic cough History of stress test Sinusitis Thyroid disease Hypertension Home Medications Medication Instructions Recorded Last Taken Type atenolol 25 mg tablet 12.5 mg PO DAILY 10/10/17 03/18/25 History levothyroxine 50 mcg tablet 50 mcg PO DAILY 07/17/21 03/18/25 History vit C 226 mg-vit E 90 mg-copper 1 cap PO BID 07/17/21 03/18/25 History 0.8 mg-zinc oxide-lutein 5 mg capsule (PreserVision Lutein) [id number] 8 mg-folic 400 1 tab PO DAILY 09/22/22 03/18/25 History mcg-K 50 mcg-lutein 300 mcg tablet (Centrum Silver Women) sertraline 50 mg tablet (Zoloft) 50 mg PO DAILY 09/22/22 03/18/25 History calcium 300 mg-D3 20 mcg-magnesium 1 tab PO DAILY 01/14/23 Unknown History 25 mg-coppr 0.5 [id number] tablet (Caltrate-D3 Plus Minerals) ascorbic acid (vitamin C) 1,000 mg 2 g PO DAILY 02/11/23 Unknown History tablet arginine HCl (L-arginine) 1,000 mg 1,000 mg PO BID 09/01/23 03/18/25 History tablet losartan 25 mg tablet 25 mg PO DAILY #90 TABLETS 11/17/24 03/18/25 Rx trazodone 50 mg tablet 50 mg PO QHS PRN sleep 11/17/24 03/18/25 History zinc gluconate 50 mg tablet 50 mg PO QDAY 11/17/24 03/18/25 History cholecalciferol (vitamin D3) 10 10 mcg PO DAILY 03/19/25 03/18/25 History mcg (400 unit) capsule exemestane 25 mg tablet 25 mg PO DAILY 03/19/25 03/18/25 History Allergy/AdvReac Type Severity Reaction Status Date / Time Penicillins Allergy Severe Rash Verified 03/19/25 09:31 levofloxacin Allergy Other Verified 03/19/25 09:31 erythromycin base AdvReac Upset Verified 03/19/25 09:31 Stomach Family History Mother Cancer bladder Father Myocardial infarction Hypertension Cancer Prostate Surgical History Status post total right knee replacement Hx of total knee replacement Status post total left knee replacement S/P skin and subcutaneous tissue surgery S/P foot surgery Social History Smoking Status: Never smoker alcohol intake: never substance use type: does not use caffeine: Yes ROS ROS ED Constitutional Constitutional ED: Reports chills, fever(s) and subjective; Denies sweats Eyes Eyes: Denies blurry vision or change in vision ENT ENT ED: Denies ear pain, rhinorrhea or sore throat Cardiovascular Cardiovascular: Denies chest pain, orthopnea, palpitations or paroxysmal nocturnal dyspnea Respiratory/Chest Respiratory/Chest: Denies cough, dyspnea, dyspnea on exertion, orthopnea or paroxysmal nocturnal dyspnea Gastrointestinal Gastrointestinal: Reports diarrhea; Denies constipation, melena, nausea or vomiting Genitourinary Genitourinary ED: Denies dysuria, hematuria or urinary frequency Musculoskeletal Musculoskeletal: Denies arthralgias or myalgias Integumentary Denies rash Neurologic Neurologic: Denies paresthesias or weakness Psychiatric Psychiatric: Denies anxiety or depression Endocrine Endocrinology: Denies cold intolerance or heat intolerance Hematologic/Lymphatic Hematologic/Lymphatic: Reports systems reviewed and no addt'l complaints, except as documented EXAM Physical Exam Const Vital Signs: 03/19/25 09:30 Temperature 97.3 F L Temperature Source Temporal Pulse Rate 85 Respiratory Rate 14 Blood Pressure 121/65 H Blood Pressure Mean 83 Pulse Ox 100 Oxygen Delivery Method Room Air Positive well nourished and well developed General Appearance ED: well developed; Negative for cyanotic, diaphoretic, NAD or pallor HEENT Reports dry mucous membranes HEENT Narrative: Head is atraumatic no cephalic. Ears normal. Nares patent. Mouth ED: Yes dry mucous membranes Mouth: dry mucous membranes Eyes PERRL and EOMs intact bilaterally General Eye ED: Negative for pale conjunctiva or scleral icterus Neck no lymphadenopathy, supple and no JVD Chest Wall inspection of chest normal and palpation of chest normal Resp normal respiratory effort and clear to auscultation bilaterally Cardio regular rate, regular rhythm, S1 normal heart sound, S2 normal heart sound and no murmurs GI non-distended and no masses; Negative for normal to inspection, nondistended, normoactive bowel sounds, non-tender or hepatosplenomegaly GI Narrative: Patient has peritoneal findings left lower quadrant. Patient has tenderness to percussion. There is rebound tenderness. Bowel sounds are increased. Auscultation: hyperactive bowel sounds Palpation: soft, tender LLQ, guarding LLQ and rebound tenderness present other (Left lower quadrant); Negative for splenomegaly or mass Back/Spine no CVA tenderness Extremity normal to inspection General Extremety ED: Negative for edema or tenderness General Extremity: Negative for edema Neuro oriented x3 and CN's II-XII intact bilaterally Sensorium / Orientation: alert Psych mental status grossly normal Skin no rashes or lesions noted, no wounds and skin turgor normal General Skin Exam: Negative for jaundice or pallor MDM MDM MDM Narrative Medical decision making narrative: Differential diagnosis is irritable bowel, ulcerative colitis, diverticulitis, need to evaluate for abscess/perforation, infectious diarrhea workup included CBC, BMP and CT of the abdomen with IV contrast. I inadvertently ordered CT with contrast. This was changes CT with oral and IV contrast. History & Record Review Additional record(s) reviewed:: Prior outpatient record (Outpatient colonoscopy that revealed diverticulosis.) and Prior ED visit Lab Data Attestation: I reviewed the patient's lab results. Lab results narrative: White count is elevated 17,000 with slight shift. There is no bandemia. Electrolyte panel is unremarkable. I believe there is an area in the estimated creatinine clearance. Reported out as 1.97. Her prior BUN/creatinine and estimated GFR are essentially unchanged and feel this is a entry error. Labs: Laboratory Results - last 24 hr 03/19/25 09:49 WBC 17.0 H RBC 4.29 Hgb 13.5 Hct 40.6 MCV 94.6 MCH 31.5 MCHC 33.3 RDW Std Deviation 45.7 H RDW Coeff of Gerda 13.2 Plt Count 246 MPV 10.6 Immature Gran % (Auto) 0.900 Neut % (Auto) 78.0 H Lymph % (Auto) 9.4 L Moca % (Auto) 11.1 H Eos % (Auto) 0.2 Baso % (Auto) 0.4 Absolute Neuts (auto) 13.3 H Absolute Lymphs (auto) 1.59 Nucleated RBC % 0 Platelet Estimate A Sodium 135 Potassium 4.0 Chloride 102 Carbon Dioxide 21.8 Anion Gap 11 BUN 15 Creatinine 0.90 Estim Creat Clear Calc 1.97 L* Est GFR (MDRD) Non-Af 66 BUN/Creatinine Ratio 17.2 Glucose 119 H Calcium 8.8 Radiography Diagnostic Testing: Clinical Impression(s) from Imaging Studies Abdomen/Pelvis CT 03/19/25 11:01 IMPRESSION: 1. Long segment diverticulitis of the sigmoid colon. Ill-defined phlegmon without discrete abscess. 2. Cholelithiasis with dilation of the common bile duct. Correlation with right upper quadrant ultrasound may be useful for further evaluation. 3. Thickened, ill-defined endometrium, poorly evaluated on CT imaging. Correlation with patient history and symptoms recommended. Pelvic ultrasound could be performed if not recently obtained for further evaluation. Reading Location: [facility] Management Discussion w/another healthcare provider: Hospitalist (Discussed case with hospitalist. Hospitalist will contact surgery because of the peritoneal findings. He was informed because of her allergy she will start on clindamycin and metronidazole.) Discharge Plan Triage Chief Complaint: Abd Pain ED Provider: Corby Norman Dx/Rx/DC Orders Clinical Impression: Diverticulitis of sigmoid colon, Essential hypertension, Nonrheumatic aortic (valve) insufficiency, Non-rheumatic mitral regurgitation, Hypothyroidism, Localized peritonitis, Phlegmonous colitis, Breast cancer Prescriptions: No Action atenolol 25 mg tablet 12.5 mg PO DAILY arginine HCl (L-arginine) 1,000 mg tablet 1,000 mg PO BID Caltrate-D3 Plus Minerals 300 mg-800 unit -25 mg-0.5 mg tablet 1 tab PO DAILY ascorbic acid (vitamin C) 1,000 mg tablet 2 g PO DAILY trazodone 50 mg tablet 50 mg PO QHS PRN (Reason: sleep) zinc gluconate 50 mg tablet 50 mg PO QDAY losartan 25 mg tablet 25 mg PO DAILY Qty: 90 3RF levothyroxine 50 mcg Tablet 50 mcg PO DAILY PreserVision Lutein 226 mg-200 unit -5 mg-0.8 mg Capsule 1 cap PO BID sertraline [Zoloft] 50 mg Tablet 50 mg PO DAILY Centrum Silver Women 8 mg iron-400 mcg-300 mcg Tablet 1 tab PO DAILY exemestane 25 mg tablet 25 mg PO DAILY cholecalciferol (vitamin D3) 10 mcg (400 unit) capsule 10 mcg PO DAILY Primary Care Provider: Raya An Referrals: Raya An DO [Primary Care Provider] - Print Language: Panamanian Disposition Disposition: [facility] Care [facility]
--- NOTE | 2025-03-19 12:34 | PCM.HP.STD ---
HPI - General General Date of Admission: 03/19/25 Date of Service: 03/19/25 Chief Complaint: Left lower quadrant abdominal pain HPI Narrative NINA GORDON, is a 75 F came to ED with left lower quadrant abdominal pain that started yesterday. She described her pain as 4-5, goes maximum 7-8/10 intensity, until it is pressed, colicky type with associated with nausea. She also had 4 loose bowel movement yesterday. Usually she stated that she has perfect bowel movement well-formed. No fever or chills. No prior history of abdominal surgery or diverticulitis in the past. She had colonoscopy couple years ago by Dr. Wall and she verbally said it was good/normal. In ED, she had CT abdomen with IV contrast which shows sigmoid diverticulitis with phlegmon. Patient is further admitted. [facility] Medical History Hypothyroidism Non-rheumatic mitral regurgitation Nonrheumatic aortic (valve) insufficiency Abnormal echocardiogram Essential hypertension Sarcoidosis Depression Alcohol use History of echocardiogram Cancer Skin lesions Wears glasses Anxiety Arthritis Migraine headache Non-smoker Chronic cough History of stress test Sinusitis Thyroid disease Hypertension Home Medications Medication Instructions Recorded Last Taken Type atenolol 25 mg tablet 12.5 mg PO DAILY 10/10/17 03/18/25 History levothyroxine 50 mcg tablet 50 mcg PO DAILY 07/17/21 03/18/25 History vit C 226 mg-vit E 90 mg-copper 1 cap PO BID 07/17/21 03/18/25 History 0.8 mg-zinc oxide-lutein 5 mg capsule (PreserVision Lutein) [id number] 8 mg-folic 400 1 tab PO DAILY 09/22/22 03/18/25 History mcg-K 50 mcg-lutein 300 mcg tablet (Centrum Silver Women) sertraline 50 mg tablet (Zoloft) 50 mg PO DAILY 09/22/22 03/18/25 History calcium 300 mg-D3 20 mcg-magnesium 1 tab PO DAILY 01/14/23 Unknown History 25 mg-coppr 0.5 ek-tjil-lulo tablet (Caltrate-D3 Plus Minerals) ascorbic acid (vitamin C) 1,000 mg 2 g PO DAILY 02/11/23 Unknown History tablet arginine HCl (L-arginine) 1,000 mg 1,000 mg PO BID 09/01/23 03/18/25 History tablet losartan 25 mg tablet 25 mg PO DAILY #90 TABLETS 11/17/24 03/18/25 Rx trazodone 50 mg tablet 50 mg PO QHS PRN sleep 11/17/24 03/18/25 History zinc gluconate 50 mg tablet 50 mg PO QDAY 11/17/24 03/18/25 History cholecalciferol (vitamin D3) 10 10 mcg PO DAILY 03/19/25 03/18/25 History mcg (400 unit) capsule exemestane 25 mg tablet 25 mg PO DAILY 03/19/25 03/18/25 History Allergy/AdvReac Type Severity Reaction Status Date / Time Penicillins Allergy Severe Rash Verified 03/19/25 09:31 levofloxacin Allergy Other Verified 03/19/25 09:31 erythromycin base AdvReac Upset Verified 03/19/25 09:31 Stomach Family History Mother Cancer bladder Father Myocardial infarction Hypertension Cancer Prostate Surgical History Status post total right knee replacement Hx of total knee replacement Status post total left knee replacement S/P skin and subcutaneous tissue surgery S/P foot surgery Social History Smoking Status: Never smoker alcohol intake: never substance use type: does not use caffeine: Yes ROS ROS Narrative Constitutional: Denies chronic fatigue and weakness. No fever. HEENT: Reports systems reviewed and no addt'l complaints, except as documented Respiratory/Chest: No acute shortness of breath or respiratory distress or wheezing. No history of smoking. CVS: Leaky valves. Follows case management associate Dr. Suazo. Gastrointestinal: Denies coffee ground emesis, hematemesis or vomiting. Rest as described in HPI Genitourinary: Denies burning urination or new urinary tract symptoms Musculoskeletal: Denies acute joint pain or limited range of motion. No acute injury Neurologic: Denies seizure-like symptoms. skin: No ulcer. No rash Endocrinology: Reports systems reviewed and no addt'l complaints, except as documented Hematologic/Lymphatic: Reports systems reviewed and no addt'l complaints, except as documented Rest 14 ROS are negative except as mentioned in HPI Vital Signs Vital Signs Vital Signs: 03/19/25 09:30 Temperature 97.3 F L Temperature Source Temporal Pulse Rate 85 Respiratory Rate 14 Blood Pressure 121/65 H Blood Pressure Mean 83 Pulse Ox 100 Oxygen Delivery Method Room Air Weight Weight: 5 lb 4 oz Body Mass Index (BMI) 0.8 Physical Exam Narrative General: Alert, Oriented x3, Cooperative HEENT: Atraumatic, PERRLA, EOMI, Normocephalic. Oral: Oral mucosa moist. No Gingival or Mucosal Lesions/ Ulcerations Neck: Supple, No JVD, Negative Carotid Bruits Chest wall/Lungs: Air entry diminished in bilateral lung bases. No crepitation/rhonchi Cardiovascular: Regular rate and rhythm, Normal S1,S2, systolic murmur at cardiac apex and early diastolic murmur were right second ICS Abdomen: Bowel Sounds Present, Soft, tenderness present over left lower quadrant. No rebound tenderness/cardboard rigidity therefore no peritoneal signs : No dysuria. No renal angle tenderness. No suprapubic tenderness. Extremities: No edema, Capillary Refill Less than 3 Seconds Skin: No rashes, No breakdown Musculoskeletal: No Tenderness to Palpation of Joints or Extremities Neurological: Cranial nerves II-XII grossly intact, DTR 2+/4. No acute focal neurological deficit. Psych/Mental Status: Normal affect. Appropriate Results Lab / Micro Data 03/19/25 09:49 03/19/25 09:49 Labs: Laboratory Results - last 24 hr 03/19/25 09:49: WBC 17.0 H, RBC 4.29, Hgb 13.5, Hct 40.6, MCV 94.6, MCH 31.5, MCHC 33.3, RDW Std Deviation 45.7 H, RDW Coeff of Gerda 13.2, Plt Count 246, MPV 10.6, Immature Gran % (Auto) 0.900, Neut % (Auto) 78.0 H, Lymph % (Auto) 9.4 L, [place] % (Auto) 11.1 H, Eos % (Auto) 0.2, Baso % (Auto) 0.4, Absolute Neuts (auto) 13.3 H, Absolute Lymphs (auto) 1.59, Nucleated RBC % 0, Platelet Estimate A, Sodium 135, Potassium 4.0, Chloride 102, Carbon Dioxide 21.8, Anion Gap 11, BUN 15, Creatinine 0.90, Estim Creat Clear Calc 1.97 L*, Est GFR (MDRD) Non-Af 66, BUN/Creatinine Ratio 17.2, Glucose 119 H, Calcium 8.8 Imaging Radiology Impression Abdomen/Pelvis CT 03/19/25 11:01 IMPRESSION: 1. Long segment diverticulitis of the sigmoid colon. Ill-defined phlegmon without discrete abscess. 2. Cholelithiasis with dilation of the common bile duct. Correlation with right upper quadrant ultrasound may be useful for further evaluation. 3. Thickened, ill-defined endometrium, poorly evaluated on CT imaging. Correlation with patient history and symptoms recommended. Pelvic ultrasound could be performed if not recently obtained for further evaluation. Reading Location: [id number] Assessment & Plan Assessment/Plan (1) Diverticulitis of sigmoid colon: (2) Phlegmonous colitis: PLAN: Plan This is a 75-year-old female being admitted for left lower quadrant abdominal pain 1. Long segment sigmoid diverticulitis with ill-defined phlegmon therefore complicated diverticulitis: Patient is being admitted to the floor. I asked ED physician to call surgeon but he asked me to call. Therefore I called Dr. Bentley. Abdominal exam is not suggestive of diffuse peritonitis. CT abdomen imaging initially reviewed and shows sigmoid diverticulitis with phlegmon and localized infiltrates. Started on IV ceftriaxone and Flagyl. ED physician ordered clindamycin and Flagyl. IV fluid normal saline. Supportive medications for nausea and vomiting. Leukocytosis, mainly polymorphs. 2. Incidental finding of asymptomatic cholelithiasis with ultrasound CBD: Patient does not have right upper quadrant pain or tenderness. Right upper quadrant sonogram ordered. Liver chemistry ordered. 3. Thickened ill-defined endometrium: Patient was advised to follow-up with [employer] Dr. Jennifer Farfan. She will need TVUS with possible endometrial biopsy as an outpatient 4. Valvular heart disease and hypertension: Last echo in July 2023 shows mild aortic insufficiency, mild TR, mild MR, EF 59% with normal LV size and systolic function. Normal diastolic dysfunction. She follows case management associate Dr. Suazo last seen in October 2024, note reviewed. Repeat echo shows a mean aortic valve gradient 11 mm. Unchanged from previous echo of November 2022. Blood pressure is controlled. On atenolol 12.5 mg daily and losartan 25 mg daily continued. 5. CA breast: She is on exemestane 25 daily hold it. 6. Hypothyroidism on levothyroxine 50 mcg daily, continued. TSH and free T4 tomorrow a.m. 7. DVT prophylaxis: Lovenox 40 mL subcu daily. Living will/advanced directive/end of life care: Patient does have living will or advanced directive. Patient's in the ED is power of mill recorder for health. After discussion of benefits/risks procedures involved with full code, DNR CC arrest and DNR CC, the patient opted for DNR CC arrest with no intubation Patient doesn't want artificial life support including intubation, tube feed, ventilator and/chest compression, central venous catheter, vasopressor and DC shock if needed Total time spent in [id number] encounter in discussion of advanced directive 17 minutes. Laboratory Results 03/19/25 09:49: WBC 17.0 H, RBC 4.29, Hgb 13.5, Hct 40.6, MCV 94.6, MCH 31.5, MCHC 33.3, RDW Std Deviation 45.7 H, RDW Coeff of Gerda 13.2, Plt Count 246, MPV 10.6, Immature Gran % (Auto) 0.900, Neut % (Auto) 78.0 H, Lymph % (Auto) 9.4 L, [place] % (Auto) 11.1 H, Eos % (Auto) 0.2, Baso % (Auto) 0.4, Absolute Neuts (auto) 13.3 H, Absolute Lymphs (auto) 1.59, Nucleated RBC % 0, Platelet Estimate A, Sodium 135, Potassium 4.0, Chloride 102, Carbon Dioxide 21.8, Anion Gap 11, BUN 15, Creatinine 0.90, Estim Creat Clear Calc 1.97 L*, Est GFR (MDRD) Non-Af 66, BUN/Creatinine Ratio 17.2, Glucose 119 H, Calcium 8.8, Magnesium Pending, Total Bilirubin Pending, Direct Bilirubin Pending, AST Pending, ALT Pending, Alkaline Phosphatase Pending, Total Protein Pending, Albumin Pending Clinical Impression(s) from Imaging Studies Abdomen/Pelvis CT 03/19/25 11:01 IMPRESSION: 1. Long segment diverticulitis of the sigmoid colon. Ill-defined phlegmon without discrete abscess. 2. Cholelithiasis with dilation of the common bile duct. Correlation with right upper quadrant ultrasound may be useful for further evaluation. 3. Thickened, ill-defined endometrium, poorly evaluated on CT imaging. Correlation with patient history and symptoms recommended. Pelvic ultrasound could be performed if not recently obtained for further evaluation. Reading Location: [id number] Charges/Coding Visit Charges Inpatient E&M: 33773 Init Hosp L3 Procedures Hospitalists Procedures: 29189 Advncd Care Plan 30 Min
[2025-03-19 12:46] VITALS: BP 122/65; PULSE 72; RESP 16; TEMP 36.7; O2SAT 99
[2025-03-19 13:30] VITALS: BMI 30.8
[2025-03-19 13:36] LABS: Magnesium 2.1 mg/dL (1.5-2.2)
[2025-03-19 13:37] LABS: AST(SGOT) 20 U/L (<=31); Alanine Aminotransfer ALT/SGPT 10 U/L (<=34); Albumin, Serum 3.8 g/dL (3.4-4.8); Alkaline Phosphatase 91 U/L (35-104); Bilirubin, Direct 0.29 mg/dL (0.00-0.30); Globulin 2.9 g/dL (2.2-4.2)
[2025-03-19] MEDS: 0.9% Saline Lock 10 ML Syringe IV (14:07)
[2025-03-19] MEDS: KCL 20MEQ in 0.9% NS 20 MEQ/1,000 ML IV.SOLN. 75 MEQ IV (14:07)
[2025-03-19] MEDS: Ceftriaxone 2 GM in 0.9% Normal Saline (50mL MB+) 50 ML IV (14:09)
--- NOTE | 2025-03-19 14:39 | EX.PCM.CON.S ---
Assessment & Plan Assessment/Plan (1) Diverticulitis of sigmoid colon: PLAN: Plan The patient is a 75-year-old female with acute sigmoid diverticulitis with probable associated phlegmon. Clinically she seems stable and does not demonstrate any acute abdominal findings that would require surgery at this time. Would recommend n.p.o. and IV antibiotics. Will continue to follow along closely. May suggest repeat CT scan in a couple days. Last colonoscopy was a couple of years ago and so she may require repeat colonoscopy in roughly 8 weeks. HPI Consult Data Date of Consult: 03/19/25 HPI Narrative Reason for Consultation: Diverticulitis HPI Narrative: NINA GORDON, is a 75 F who presented to the emergency department on 03/19/2025 at [facility] with left lower quadrant pain that began yesterday. She states that through most of the day yesterday she really had no issues or complaints. She states that her bowels have been very regular previously. She denied any abdominal pain until evening. She denied any fevers or chills. Last evening she began noticing some tenderness in the left lower quadrant. She also had some associated episodes of diarrhea she describes them as loose but not necessarily purely water. She denied any nausea or vomiting. No fevers or chills. She states that she went to bed and slept fine however she woke up with increased pain in the left lower quadrant which prompted her visit to the emergency department. She was seen evaluated by the ER staff. Blood work revealed a leukocytosis of 17. CT scan was performed and showed sigmoid diverticulitis with what appeared to be a phlegmon. No discrete abscess per se was noted. She has never had any previous episodes of diverticulitis. She states that her last colonoscopy was about 2 or 3 years ago and she states that it was normal. She does not recall ever being told that she has had diverticulosis. She was subsequently admitted to the hospitalist service. A surgical consult was obtained. She currently states that her pain is about a 4 or 5 if palpated. She states that really at resting she really does not have any significant pain.. [facility] Medical History (Updated 03/19/25 @ 13:55 by Mónica Keene) Pancreatitis GERD (gastroesophageal reflux disease) Hypothyroidism Non-rheumatic mitral regurgitation Nonrheumatic aortic (valve) insufficiency Abnormal echocardiogram Essential hypertension Sarcoidosis Depression Alcohol use History of echocardiogram Cancer Skin lesions Wears glasses Anxiety Arthritis Migraine headache Non-smoker Chronic cough History of stress test Sinusitis Thyroid disease Hypertension Home Medications Medication Instructions Recorded Last Taken Type atenolol 25 mg tablet 12.5 mg PO DAILY 10/10/17 03/18/25 History levothyroxine 50 mcg tablet 50 mcg PO DAILY 07/17/21 03/18/25 History vit C 226 mg-vit E 90 mg-copper 1 cap PO BID 07/17/21 03/18/25 History 0.8 mg-zinc oxide-lutein 5 mg capsule (PreserVision Lutein) tliqchiy-kels-ktmn 8 mg-folic 400 1 tab PO DAILY 09/22/22 03/18/25 History mcg-K 50 mcg-lutein 300 mcg tablet (Centrum Silver Women) sertraline 50 mg tablet (Zoloft) 50 mg PO DAILY 09/22/22 03/18/25 History calcium 300 mg-D3 20 mcg-magnesium 1 tab PO DAILY 01/14/23 Unknown History 25 mg-coppr 0.5 ei-xqgl-dhiy tablet (Caltrate-D3 Plus Minerals) ascorbic acid (vitamin C) 1,000 mg 2 g PO DAILY 02/11/23 Unknown History tablet arginine HCl (L-arginine) 1,000 mg 1,000 mg PO BID 09/01/23 03/18/25 History tablet losartan 25 mg tablet 25 mg PO DAILY #90 TABLETS 11/17/24 03/18/25 Rx trazodone 50 mg tablet 50 mg PO QHS PRN sleep 11/17/24 03/18/25 History zinc gluconate 50 mg tablet 50 mg PO QDAY 11/17/24 03/18/25 History cholecalciferol (vitamin D3) 10 10 mcg PO DAILY 03/19/25 03/18/25 History mcg (400 unit) capsule exemestane 25 mg tablet 25 mg PO DAILY 03/19/25 03/18/25 History Allergy/AdvReac Type Severity Reaction Status Date / Time Penicillins Allergy Severe Rash Verified 03/19/25 09:31 levofloxacin Allergy Other Verified 03/19/25 09:31 erythromycin base AdvReac Upset Verified 03/19/25 09:31 Stomach Family History Mother Cancer bladder Father Myocardial infarction Hypertension Cancer Prostate Surgical History Status post total right knee replacement Hx of total knee replacement Status post total left knee replacement S/P skin and subcutaneous tissue surgery S/P foot surgery Social History Smoking Status: Never smoker alcohol intake: never substance use type: does not use caffeine: Yes ROS Eyes Eyes: Reports systems reviewed and no addt'l complaints, except as documented ENT HEENT: Reports systems reviewed and no addt'l complaints, except as documented Cardiovascular Cardiovascular: Reports systems reviewed and no addt'l complaints, except as documented Respiratory/Chest Respiratory/Chest: Reports systems reviewed and no addt'l complaints, except as documented Gastrointestinal Gastrointestinal: Reports systems reviewed and no addt'l complaints, except as documented Genitourinary Genitourinary: Reports systems reviewed and no addt'l complaints, except as documented Musculoskeletal Musculoskeletal: Reports systems reviewed and no addt'l complaints, except as documented Physical Exam Narrative She is alert and oriented x 3. She is in no acute distress. Head is normocephalic and atraumatic. Pupils are equal round and reactive to light. Abdomen is soft and nondistended. She does have mild to moderate left lower quadrant tenderness to palpation. No rebound or guarding or other obvious peritoneal signs Medical Records Data Attestation: I reviewed the patient's medical records Lab / Micro Data Attestation: I reviewed the patient's lab results. 03/19/25 09:49 03/19/25 09:49 Labs: Laboratory Results - last 24 hr 03/19/25 09:49: WBC 17.0 H, RBC 4.29, Hgb 13.5, Hct 40.6, MCV 94.6, MCH 31.5, MCHC 33.3, RDW Std Deviation 45.7 H, RDW Coeff of Gerda 13.2, Plt Count 246, MPV 10.6, Immature Gran % (Auto) 0.900, Neut % (Auto) 78.0 H, Lymph % (Auto) 9.4 L, [place] % (Auto) 11.1 H, Eos % (Auto) 0.2, Baso % (Auto) 0.4, Absolute Neuts (auto) 13.3 H, Absolute Lymphs (auto) 1.59, Nucleated RBC % 0, Platelet Estimate A, Sodium 135, Potassium 4.0, Chloride 102, Carbon Dioxide 21.8, Anion Gap 11, BUN 15, Creatinine 0.90, Estim Creat Clear Calc 1.97 L*, Est GFR (MDRD) Non-Af 66, BUN/Creatinine Ratio 17.2, Glucose 119 H, Calcium 8.8, Magnesium 2.1, Total Bilirubin 0.90, Direct Bilirubin 0.29, AST 20, ALT 10, Alkaline Phosphatase 91, Total Protein 6.7, Albumin 3.8, Globulin 2.9 Imaging Radiology Impression Abdomen/Pelvis CT 03/19/25 11:01 IMPRESSION: 1. Long segment diverticulitis of the sigmoid colon. Ill-defined phlegmon without discrete abscess. 2. Cholelithiasis with dilation of the common bile duct. Correlation with right upper quadrant ultrasound may be useful for further evaluation. 3. Thickened, ill-defined endometrium, poorly evaluated on CT imaging. Correlation with patient history and symptoms recommended. Pelvic ultrasound could be performed if not recently obtained for further evaluation. Reading Location: [facility] Charges/Coding Visit Charges Inpatient E&M: 18706 Init Hosp L3
[2025-03-19 15:30] VITALS: BP 123/63; PULSE 70; RESP 15; TEMP 37.5; O2SAT 94
[2025-03-19 19:49] VITALS: BP 105/44; PULSE 63; RESP 16; TEMP 37.1; O2SAT 98
[2025-03-20] MEDS: KCL 20MEQ in 0.9% NS 20 MEQ/1,000 ML IV.SOLN. 75 MEQ IV (03:29)
[2025-03-20 03:41] VITALS: BP 110/50; PULSE 68; RESP 16; TEMP 36.8; O2SAT 95
--- NOTE | 2025-03-20 05:55 | US_ITS ---
EXAM: US Abdomen Limited, Right Upper Quadrant CLINICAL INDICATION: GB NECK STONE, CBD DILATION ON CT TECHNIQUE: Real-time ultrasound of the right upper quadrant with image documentation. COMPARISON: No relevant prior studies available. FINDINGS: LIVER: Liver measures up to 13.4 cm. No intrahepatic bile duct dilation. GALLBLADDER: 0.9 cm calculus at the gallbladder neck. Negative Rivera's sign was reported by the maid supervisor. COMMON BILE DUCT: Unremarkable as visualized. No stones. No dilation. Common bile duct measures 0.134 cm in diameter. PANCREAS: Unremarkable as visualized. RIGHT KIDNEY: 7 mm calculus in the inferior pole of the right kidney. No hydronephrosis. The right kidney measures 9.6 x 5.5 x 4.6 cm. US/Liver IMPRESSION: 1. 0.9 cm calculus at the gallbladder neck. 2. Right nephrolithiasis without hydronephrosis. Reading Location: [facility]
[2025-03-20] MEDS: metroNIDAZOLE 500 MG/100 ML BAG 100 MG IV ×3 (06:27→21:36)
[2025-03-20 07:49] VITALS: BP 126/62; PULSE 62; RESP 16; TEMP 36.8; O2SAT 100
[2025-03-20] MEDS: 0.9% Saline Lock 10 ML Syringe IV (07:54)
[2025-03-20 07:55] LABS: Hematocrit 38.0 % (37-47); Hemoglobin 12.5 g/dL (12.0-15.0); Immature Granulocytes Count 0.100 X10^3/uL (0.0-0.0); Mean Corp Hgb Conc 32.9 g/dL (32-36); Mean Corpuscular Volume 97.2 fL (81-99); Mean Platelet Vol. 10.0 fl (6.2-12.0); NRBC Flagged by Analyzer 0 % (0-5); Platelet Count 237 K/mm3 (150-450); RBC Distribution Width CV 13.1 % (11.6-14.6); RBC Distribution Width SD 46.5 fl (35.1-43.9); Red Blood Count 3.91 M/mm3 (4.2-5.4); White Blood Count 14.9 K/mm3 (4.4-11.0)
[2025-03-20 09:05] LABS: AST(SGOT) 16 U/L (<=31); Alanine Aminotransfer ALT/SGPT 11 U/L (<=34); Albumin, Serum 3.5 g/dL (3.4-4.8); Alkaline Phosphatase 93 U/L (35-104); Anion Gap 11 (5-15); BUN 12 mg/dL (4-19); BUN/Creat Ratio 14.0 RATIO (10-20); Calcium,Total 8.3 mg/dL (7.6-11.0); Carbon Dioxide 22.3 mmol/L (21.0-32.0); Chloride 106 mmol/L (98-108); Estimated Creatinine Clearance 57.21 ml/min (50-250); Globulin 3.0 g/dL (2.2-4.2); Glucose 100 mg/dL (70-99); Potassium 4.4 mmol/L (3.3-5.1)
--- NOTE | 2025-03-20 10:06 | CASEMGMT ---
Dx: Diverticulitis LACE: 2 6-Clicks: 24 Medical record reviewed and patient evaluated for identification of discharge planning needs. Based on this review, at this time criteria are not present to indicate a need for discharge planning. Will remain available to assist with discharge planning needs as identified or requested.
[2025-03-20] MEDS: Ceftriaxone 2 GM in 0.9% Normal Saline (50mL MB+) 50 ML IV (10:11)
[2025-03-20] MEDS: Lactobacillis Acidophilus 1 CAP PO (11:44)
--- NOTE | 2025-03-20 13:15 | PN.SURG_ITS ---
Subjective Subjective Patient seen and examined on rounds this morning. She states that she continues to improve. She has less pain today compared to yesterday and even the day of admission. She has been given a clear liquid diet which she has been tolerating thus far. She continues to complain of ongoing soft stools/diarrhea Objective Data Objective Data Vital Signs: Vital Signs Temp Pulse Resp BP Pulse Ox O2 Del Method 98.3 F 62 16 126/62 H 100 Room Air 03/20/25 07:49 03/20/25 07:49 03/20/25 07:49 03/20/25 07:49 03/20/25 07:49 03/20/25 07:49 Oxygen Delivery Method Room Air Weight: 179 lb 8 oz Body Mass Index (BMI) 30.8 Intake & Output: Intake and Output for Last 24 Hours 03/18/25 03/19/25 03/20/25 23:59 23:59 23:59 Intake Total 1400 / 1400 1433.75 / 1433.75 Balance 1400 / 1400 1433.75 / 1433.75 Lab / Micro Data 03/20/25 07:45 03/20/25 07:45 Labs: Laboratory Results - last 24 hr 03/19/25 09:49: Magnesium 2.1, Total Bilirubin 0.90, Direct Bilirubin 0.29, AST 20, ALT 10, Alkaline Phosphatase 91, Total Protein 6.7, Albumin 3.8, Globulin 2.9 03/20/25 07:45: WBC 14.9 H, RBC 3.91 L, Hgb 12.5, Hct 38.0, MCV 97.2, MCH 32.0, MCHC 32.9, RDW Std Deviation 46.5 H, RDW Coeff of Gerda 13.1, Plt Count 237, MPV 10.0, Immature Gran % (Auto) 0.700, Neut % (Auto) 78.9 H, Lymph % (Auto) 10.0 L, [place] % (Auto) 10.0, Eos % (Auto) 0.1, Baso % (Auto) 0.3, Absolute Neuts (auto) 11.7 H, Absolute Lymphs (auto) 1.48, Nucleated RBC % 0, Sodium 140, Potassium 4.4, Chloride 106, Carbon Dioxide 22.3, Anion Gap 11, BUN 12, Creatinine 0.85, Estim Creat Clear Calc 57.21, Est GFR (MDRD) Non-Af 71, BUN/Creatinine Ratio 14.0, Glucose 100 H, Calcium 8.3, Total Bilirubin 0.53, AST 16, ALT 11, Alkaline Phosphatase 93, Total Protein 6.5, Albumin 3.5, Globulin 3.0, Albumin/Globulin Ratio 1.2, TSH 1.320, Free T4 1.10 Radiography Diagnostic Testing: Radiology Impression Liver Ultrasound 03/20/25 05:55 IMPRESSION: 1. 0.9 cm calculus at the gallbladder neck. 2. Right nephrolithiasis without hydronephrosis. Reading Location: [facility] Physical Exam Narrative She is alert and oriented x 3. She is in no acute distress. Abdomen is soft. There is mild tenderness to palpation in the left side of the abdomen. No rebound or guarding. The degree of pain is less than yesterday Assessment & Plan Assessment/Plan (1) Phlegmonous colitis: PLAN: Plan The patient is a 75-year-old female with left-sided abdominal pain and CT scan findings suggestive of sigmoid diverticulitis with phlegmon. Clinically she seems to be improving. Her pain is diminishing and her white count is trending downward. She continues to have diarrhea. It may be worthwhile checking her stools for culture to rule out possible infectious colitis. Otherwise would recommend continued IV antibiotics and clear liquid diet. No plans for surgical intervention at this time Will continue to follow.
[2025-03-20 14:46] VITALS: BP 117/58; PULSE 58; RESP 16; TEMP 36.4; O2SAT 98
--- NOTE | 2025-03-20 16:05 | PCM.PN.HOSP ---
Reason for Visit Chief Complaint: Left lower quadrant abdominal pain Objective Data Objective Data Vital Signs: Vital Signs Temp Pulse Resp BP Pulse Ox O2 Del Method 97.6 F L 58 L 16 117/58 L 98 Room Air 03/20/25 14:46 03/20/25 14:46 03/20/25 14:46 03/20/25 14:46 03/20/25 14:46 03/20/25 14:46 Oxygen Delivery Method Room Air Weight: 179 lb 8 oz Body Mass Index (BMI) 30.8 Intake & Output: Intake and Output for Last 24 Hours 03/18/25 03/19/25 03/20/25 23:59 23:59 23:59 Intake Total 1400 / 1400 1737.50 / 1737.50 Balance 1400 / 1400 1737.50 / 1737.50 Lab / Micro Data 03/20/25 07:45 03/20/25 07:45 Labs: Laboratory Results - last 24 hr 03/20/25 07:45: WBC 14.9 H, RBC 3.91 L, Hgb 12.5, Hct 38.0, MCV 97.2, MCH 32.0, MCHC 32.9, RDW Std Deviation 46.5 H, RDW Coeff of Gerda 13.1, Plt Count 237, MPV 10.0, Immature Gran % (Auto) 0.700, Neut % (Auto) 78.9 H, Lymph % (Auto) 10.0 L, [place] % (Auto) 10.0, Eos % (Auto) 0.1, Baso % (Auto) 0.3, Absolute Neuts (auto) 11.7 H, Absolute Lymphs (auto) 1.48, Nucleated RBC % 0, Sodium 140, Potassium 4.4, Chloride 106, Carbon Dioxide 22.3, Anion Gap 11, BUN 12, Creatinine 0.85, Estim Creat Clear Calc 57.21, Est GFR (MDRD) Non-Af 71, BUN/Creatinine Ratio 14.0, Glucose 100 H, Calcium 8.3, Total Bilirubin 0.53, AST 16, ALT 11, Alkaline Phosphatase 93, Total Protein 6.5, Albumin 3.5, Globulin 3.0, Albumin/Globulin Ratio 1.2, TSH 1.320, Free T4 1.10 Radiography Diagnostic Testing: Radiology Impression Liver Ultrasound 03/20/25 05:55 IMPRESSION: 1. 0.9 cm calculus at the gallbladder neck. 2. Right nephrolithiasis without hydronephrosis. Reading Location: [facility] Physical Exam Narrative Seen and examined. Patient still having loose bowel movement. Left lower quadrant abdominal pain is better. No fever. General: Alert, Oriented x3, Cooperative HEENT: Atraumatic, PERRLA, EOMI, Normocephalic. Oral: Oral mucosa moist. No Gingival or Mucosal Lesions/ Ulcerations Neck: Supple, No JVD, Negative Carotid Bruits Chest wall/Lungs: Air entry diminished in bilateral lung bases. No crepitation/rhonchi Cardiovascular: Regular rate and rhythm, Normal S1,S2, systolic murmur at cardiac apex and early diastolic murmur were right second ICS Abdomen: Bowel Sounds Present, Soft, mild tenderness present over left lower quadrant. No peritoneal signs : No dysuria. No renal angle tenderness. No suprapubic tenderness. Extremities: No edema, Capillary Refill Less than 3 Seconds Skin: No rashes, No breakdown Musculoskeletal: No Tenderness to Palpation of Joints or Extremities Neurological: Cranial nerves II-XII grossly intact, DTR 2+/4. No acute focal neurological deficit. Psych/Mental Status: Normal affect. Appropriate Assessment & Plan Assessment/Plan (1) Diverticulitis of sigmoid colon: (2) Phlegmonous colitis: PLAN: Plan This is a 75-year-old female being admitted for left lower quadrant abdominal pain 1. Long segment sigmoid diverticulitis with ill-defined phlegmon therefore complicated diverticulitis: Patient is being admitted to the floor. I asked ED physician to call surgeon but he asked me to call. Therefore I called Dr. Bentley. Abdominal exam is not suggestive of diffuse peritonitis. CT abdomen imaging initially reviewed and shows sigmoid diverticulitis with phlegmon and localized infiltrates. Started on IV ceftriaxone and Flagyl. ED physician ordered clindamycin and Flagyl. IV fluid normal saline. Supportive medications for nausea and vomiting. Leukocytosis, mainly polymorphs. 03/20: Surgery follow-up reviewed and appreciated. Patient has loose stool therefore stool for enteric pathogen panel, lactoferrin, occult blood and C. difficile test ordered to rule out infectious colitis. Patient on probiotic. 2. Incidental finding of asymptomatic cholelithiasis with dilatation of CBD: Patient does not have right upper quadrant pain or tenderness. Right upper quadrant sonogram ordered. Liver chemistry ordered. 03/20: Liver chemistry within normal limit with normal transaminases ALP, TB and albumin. RUQ sonogram shows 0.9 mm calculus at GB neck. No IHBD. CBD unremarkable no stones no dilatation, 0.134 cm. Pancreas unremarkable. Incidental finding of right nephrolithiasis without hydronephrosis, segment calculus at inferior pole of right kidney. CBD nondilated. No further workup needed. 3. Thickened ill-defined endometrium: Patient was advised to follow-up with [facility] [employer] Dr. Jennifer Farfan. She will need TVUS with possible endometrial biopsy as an outpatient 03/20: Dr. Farfan saw the patient and asked by the patient's family without formally consulted. She said she will see in the office with TVUS and possible endometrial biopsy. 4. Valvular heart disease and hypertension: Last echo in July 2023 shows mild aortic insufficiency, mild TR, mild MR, EF 59% with normal LV size and systolic function. Normal diastolic dysfunction. She follows vegetable inspector Dr. Suazo last seen in October 2024, note reviewed. Repeat echo shows a mean aortic valve gradient 11 mm. Unchanged from previous echo of November 2022. Blood pressure is controlled. On atenolol 12.5 mg daily and losartan 25 mg daily continued. 5. CA breast, stage Ia: She is on exemestane 25 daily hold it. She had biopsy of right axillary region and stage Ia was found on Left axillary LN biopsy. She does not have metastatic breast cancer. 03/20: Charge nurse and case therapist made aware to correct the record that she did not have metastatic breast cancer but is stage Ia. 6. Hypothyroidism on levothyroxine 50 mcg daily, continued. 03/20: TSH and free T4 normal. Continue home dose. 7. DVT prophylaxis: Lovenox 40 mg subcu daily. Living will/advanced directive/end of life care: Patient does have living will or advanced directive. Patient's in the ED is power of ip technology transactions attorney for health. After discussion of benefits/risks procedures involved with full code, DNR CC arrest and DNR CC, the patient said that she wants to be full code. She states in case if she gets in a state from where she cannot recover or deemed terminal then she wants to be DNR CC arrest with no intubation but still than she wants or resuscitation. Patient does want artificial life support including intubation, tube feed, ventilator and/chest compression, central venous catheter, vasopressor and DC shock if needed Total time spent in [id number] encounter in discussion of advanced directive 17 minutes. Laboratory Results 03/20/25 07:45: WBC 14.9 H, RBC 3.91 L, Hgb 12.5, Hct 38.0, MCV 97.2, MCH 32.0, MCHC 32.9, RDW Std Deviation 46.5 H, RDW Coeff of Gerda 13.1, Plt Count 237, MPV 10.0, Immature Gran % (Auto) 0.700, Neut % (Auto) 78.9 H, Lymph % (Auto) 10.0 L, [place] % (Auto) 10.0, Eos % (Auto) 0.1, Baso % (Auto) 0.3, Absolute Neuts (auto) 11.7 H, Absolute Lymphs (auto) 1.48, Nucleated RBC % 0, Sodium 140, Potassium 4.4, Chloride 106, Carbon Dioxide 22.3, Anion Gap 11, BUN 12, Creatinine 0.85, Estim Creat Clear Calc 57.21, Est GFR (MDRD) Non-Af 71, BUN/Creatinine Ratio 14.0, Glucose 100 H, Calcium 8.3, Total Bilirubin 0.53, AST 16, ALT 11, Alkaline Phosphatase 93, Total Protein 6.5, Albumin 3.5, Globulin 3.0, Albumin/Globulin Ratio 1.2, TSH 1.320, Free T4 1.10 Clinical Impression(s) from Imaging Studies Abdomen/Pelvis CT 03/19/25 11:01 IMPRESSION: 1. Long segment diverticulitis of the sigmoid colon. Ill-defined phlegmon without discrete abscess. 2. Cholelithiasis with dilation of the common bile duct. Correlation with right upper quadrant ultrasound may be useful for further evaluation. 3. Thickened, ill-defined endometrium, poorly evaluated on CT imaging. Correlation with patient history and symptoms recommended. Pelvic ultrasound could be performed if not recently obtained for further evaluation. Reading Location: [id number] Liver Ultrasound 03/20/25 05:55 IMPRESSION: 1. 0.9 cm calculus at the gallbladder neck. 2. Right nephrolithiasis without hydronephrosis. Reading Location: [facility] Charges/Coding Visit Charges Inpatient E&M: 97568 Subs Hosp L2
[2025-03-20 20:40] VITALS: BP 122/54; PULSE 65; RESP 15; TEMP 36.7; O2SAT 98
[2025-03-20] MEDS: 0.9% Normal Saline (250mL Bag) 250 ML 15 ML IV (21:36)
[2025-03-21 05:00] VITALS: BP 128/62; PULSE 64; RESP 15; TEMP 36.7; O2SAT 96
[2025-03-21] MEDS: metroNIDAZOLE 500 MG/100 ML BAG 100 MG IV ×2 (05:16→13:16)
[2025-03-21 06:01] LABS: Hematocrit 34.5 % (37-47); Hemoglobin 11.5 g/dL (12.0-15.0); Immature Granulocytes Count 0.050 X10^3/uL (0.0-0.0); Mean Corp Hgb Conc 33.3 g/dL (32-36); Mean Corpuscular Volume 95.0 fL (81-99); Mean Platelet Vol. 10.5 fl (6.2-12.0); NRBC Flagged by Analyzer 0 % (0-5); Platelet Count 237 K/mm3 (150-450); RBC Distribution Width CV 13.0 % (11.6-14.6); RBC Distribution Width SD 44.8 fl (35.1-43.9); Red Blood Count 3.63 M/mm3 (4.2-5.4); White Blood Count 10.3 K/mm3 (4.4-11.0)
[2025-03-21 06:50] LABS: Anion Gap 11 (5-15); BUN 9 mg/dL (4-19); BUN/Creat Ratio 13.3 RATIO (10-20); Calcium,Total 7.8 mg/dL (7.6-11.0); Carbon Dioxide 19.5 mmol/L (21.0-32.0); Chloride 107 mmol/L (98-108); Estimated Creatinine Clearance 60.79 ml/min (50-250); Glucose 98 mg/dL (70-99); Potassium 4.0 mmol/L (3.3-5.1)
--- NOTE | 2025-03-21 07:00 | US_ITS ---
EXAM: US Pelvis Transabdominal and Transvaginal, Complete CLINICAL INDICATION: THICKENED ENDOMETRIUM TECHNIQUE: Real-time complete transabdominal and transvaginal pelvic ultrasound with image documentation. Transvaginal imaging was used for better evaluation of the endometrium and adnexa. COMPARISON: No relevant prior studies available. FINDINGS: UTERUS/CERVIX: 0.7 cm uterine fibroid. Endometrium 0.3 mm and hyperechoic. The uterus measures 7.6 x 4.3 x 2.9 cm. RIGHT OVARY: Right ovary not visualized. LEFT OVARY: Left ovary not visualized. FREE FLUID: No free fluid. BLADDER: Unremarkable as visualized. Wall is normal thickness for degree of distention. OTHER FINDINGS: Suboptimal exam secondary to patient body habitus. US/Pelvic w/ Transvaginal IMPRESSION: No acute findings in the pelvis. Reading Location: [facility]
[2025-03-21] MEDS: Ceftriaxone 2 GM in 0.9% Normal Saline (50mL MB+) 50 ML IV (10:07)
[2025-03-21 10:17] VITALS: BP 148/72; PULSE 64; RESP 16; TEMP 36.6; O2SAT 100
--- NOTE | 2025-03-21 10:59 | PCM.PN.SRG ---
Subjective Subjective Patient is doing well this morning. She states that her abdominal pain is minimal at most this morning. She denies any fevers or chills. She has been tolerating a clear liquid diet without incident. Her diet is to be advanced this afternoon for lunch. She states that her diarrhea has decreased significantly as well Objective Data Objective Data Vital Signs: Vital Signs Temp Pulse Resp BP Pulse Ox O2 Del Method 97.9 F 64 16 148/72 H 100 Room Air 03/21/25 10:17 03/21/25 10:17 03/21/25 10:17 03/21/25 10:17 03/21/25 10:17 03/21/25 10:17 Oxygen Delivery Method Room Air Weight: 179 lb 8 oz Body Mass Index (BMI) 30.8 Intake & Output: Intake and Output for Last 24 Hours 03/19/25 03/20/25 03/21/25 23:59 23:59 23:59 Intake Total 1400 / 1400 2350.00 / 2450.00 437.5 / 437.5 Balance 1400 / 1400 2350.00 / 2450.00 437.5 / 437.5 Lab / Micro Data 03/21/25 05:31 03/21/25 05:31 Labs: Laboratory Results - last 24 hr 03/21/25 05:31: WBC 10.3, RBC 3.63 L, Hgb 11.5 L, Hct 34.5 L, MCV 95.0, MCH 31.7, MCHC 33.3, RDW Std Deviation 44.8 H, RDW Coeff of Gerda 13.0, Plt Count 237, MPV 10.5, Immature Gran % (Auto) 0.500, Neut % (Auto) 73.3 H, Lymph % (Auto) 14.3 L, [place] % (Auto) 10.4 H, Eos % (Auto) 1.2, Baso % (Auto) 0.3, Absolute Neuts (auto) 7.5, Absolute Lymphs (auto) 1.47, Nucleated RBC % 0, Sodium 138, Potassium 4.0, Chloride 107, Carbon Dioxide 19.5 L, Anion Gap 11, BUN 9, Creatinine 0.69 L, Estim Creat Clear Calc 60.79, Est GFR (MDRD) Non-Af 89, BUN/Creatinine Ratio 13.3, Glucose 98, Calcium 7.8 Physical Exam Narrative She is alert and orient x 3. She is in no acute distress. Abdomen is soft, nondistended nontender Assessment & Plan Assessment/Plan (1) Phlegmonous colitis: PLAN: Plan The patient is a 75-year-old female with left lower quadrant pain and leukocytosis on admission. CT scan showed findings likely consistent with diverticulitis with small phlegmon. Patient also had diarrhea. Stool studies were ordered however results are still pending. Clinically she seems to be improving significantly. I am certainly in agreement with advancing her diet and if she tolerates, she can certainly be discharged to home later today if she wishes. I did suggest that she meet with her java application developer as an outpatient to consider repeat colonoscopy but would wait probably 8 to 12 weeks before proceeding with colonoscopy to give the current issue time to heal. Also await stool studies as well. Charges/Coding Visit Charges Inpatient E&M: 67548 Subs Hosp L2
[2025-03-21] MEDS: Multivitamin (Healthy Eyes) Capsule 1 CAP PO (13:15)
[2025-03-21] MEDS: Lactobacillis Acidophilus 1 CAP PO (13:16)
--- NOTE | 2025-03-21 13:56 | DCINST_ITS ---
Discharge Instructions DC O2, CPAP, BIPAP needs Home O2 Discharge instructions: No Dressing / Incision Discharge Activity: Return to Normal Activity Dressing / Incision Call your doctor if you observe: Fever of 101 or Higher, Shortness of breath, Dizziness, Fainting spells, Swelling in the ankles, Chest pain and Increased palpitations (irregular heartbeat) Follow Up Care Test Results: Test results from this visit will be discussed in further detail at your follow- up appointment, if applicable. Discharge Plan Admission Admit Date/Time: 03/19/25 12:28 Attending Provider: Donnell Valencia Primary Care Provider: Raya An Consulting Providers: Zbigniew Bentley; Johnson Barrientos Instructions Patient Instructions: Diverticulitis Dc Discharge Orders/Prescriptions Prescriptions: New cefdinir 300 mg capsule 300 mg PO BID Qty: 14 0RF metronidazole 500 mg tablet 500 mg PO Q8H 7 Days Qty: 21 0RF Continued atenolol 25 mg tablet 12.5 mg PO DAILY arginine HCl (L-arginine) 1,000 mg tablet 1,000 mg PO BID Caltrate-D3 Plus Minerals 300 mg-800 unit -25 mg-0.5 mg tablet 1 tab PO DAILY ascorbic acid (vitamin C) 1,000 mg tablet 2 g PO DAILY trazodone 50 mg tablet 50 mg PO QHS PRN (Reason: sleep) zinc gluconate 50 mg tablet 50 mg PO QDAY losartan 25 mg tablet 25 mg PO DAILY Qty: 90 3RF levothyroxine 50 mcg Tablet 50 mcg PO DAILY PreserVision Lutein 226 mg-200 unit -5 mg-0.8 mg Capsule 1 cap PO BID sertraline [Zoloft] 50 mg Tablet 50 mg PO DAILY Centrum Silver Women 8 mg iron-400 mcg-300 mcg Tablet 1 tab PO DAILY exemestane 25 mg tablet 25 mg PO DAILY cholecalciferol (vitamin D3) 10 mcg (400 unit) capsule 10 mcg PO DAILY Referrals / Follow Up: Raya An DO [Primary Care Provider] - Within 1 Week Disposition Disposition (needs filled in before D/C Order can be placed): Home, Self Care
--- NOTE | 2025-03-21 15:19 | PCM.DC.SUM ---
Providers Date of Admission: 03/19/25 Primary Care Physician: Dr. Raya An, DO Consultations 03/19/25 13:03 Consult: General Surgery Routine Consulting Provider: Zbigniew Bentley Reason for Consult: sigmoid diverticulitis with phlegmon, GB neck stone EMERGENT Consult: No MD Notified: Yes Date Notified: 03/19/25 Time Notified: 13:04 Method of Notification: Verbal Reason For Visit: SIGMOID DIVERTICULTIS Diagnosis Discharge Diagnosis (1) Phlegmonous colitis: Status: Acute Code(s): A09 - Infectious gastroenteritis and colitis, unspecified Medications at Discharge Home Medications atenolol 25 mg tablet 12.5 mg PO DAILY 10/10/17 levothyroxine 50 mcg tablet 50 mcg PO DAILY 07/17/21 vit C 226 mg-vit E 90 mg-copper 0.8 mg-zinc oxide-lutein 5 mg capsule (PreserVision Lutein) 1 cap PO BID 07/17/21 [id number] 8 mg-folic 400 mcg-K 50 mcg-lutein 300 mcg tablet (Centrum Silver Women) 1 tab PO DAILY 09/22/22 sertraline 50 mg tablet (Zoloft) 50 mg PO DAILY 09/22/22 calcium 300 mg-D3 20 mcg-magnesium 25 mg-coppr 0.5 [id number] tablet (Caltrate-D3 Plus Minerals) 1 tab PO DAILY 01/14/23 ascorbic acid (vitamin C) 1,000 mg tablet 2 g PO DAILY 02/11/23 arginine HCl (L-arginine) 1,000 mg tablet 1,000 mg PO BID 09/01/23 losartan 25 mg tablet 25 mg PO DAILY #90 TABLETS 11/17/24 trazodone 50 mg tablet 50 mg PO QHS PRN sleep 11/17/24 zinc gluconate 50 mg tablet 50 mg PO QDAY 11/17/24 cholecalciferol (vitamin D3) 10 mcg (400 unit) capsule 10 mcg PO DAILY 03/19/25 exemestane 25 mg tablet 25 mg PO DAILY 03/19/25 cefdinir 300 mg capsule 300 mg PO BID #14 caps 03/21/25 metronidazole 500 mg tablet 500 mg PO Q8H 7 days #21 tabs 03/21/25 Hospital Course Operations None Procedures None Summary of Care Provided Minutes Spent on Discharge: 35 Hospital Course: Per HPI: NINA MOONDAVIDEN, is a 75 F came to ED with left lower quadrant abdominal pain that started yesterday. She described her pain as 4-5, goes maximum 7-8/10 intensity, until it is pressed, colicky type with associated with nausea. She also had 4 loose bowel movement yesterday. Usually she stated that she has perfect bowel movement well-formed. No fever or chills. No prior history of abdominal surgery or diverticulitis in the past. She had colonoscopy couple years ago by Dr. Wall and she verbally said it was good/normal. In ED, she had CT abdomen with IV contrast which shows sigmoid diverticulitis with phlegmon. Patient is further admitted. Hospital Course: 1. Sigmoid diverticulitis with ill-defined phlegmon–75-year-old female presents to the hospital with left lower quadrant abdominal pain. This is much improved today and she is tolerating a clear liquid diet this morning and she was advanced to a full liquid diet this afternoon which she also tolerated very well with no increased abdominal pain. She was evaluated by general surgery who felt that if she tolerated full liquid diet she would be stable for discharge home. Her stool studies have come back negative for C. difficile therefore we will continue with p.o. cefdinir and Flagyl on discharge for another 7 days. I did discuss with her the possibility for discharge if she felt comfortable and she expressed understanding of the risks and benefits of going home and would like to go home today. Her manage follow-up with her PCP in 3 to 5 days and she can advance her diet as tolerated, if she has recurrent abdominal pain or significant abdominal pain/fevers and chills and she is to come back to the hospital. 2. Thickened ill-defined endometrium–this was an incidental finding and she was told to follow-up with her MICA MINER, she did have a transvaginal ultrasound that is still pending read. 3. Essential hypertension, breast cancer, hypothyroidism, anxiety, depression all chronic medical conditions which complicate her care. Her home medications were continued with appropriate Physical Exam Narrative General: Alert, Oriented x3, Cooperative, No apparent distress HEENT: Atraumatic, PERRLA, EOMI, Normocephalic Oral: Moist Mucosa Neck: Supple, No JVD Lungs: Diminished, normal air movement, No rhonchi, No wheeze, No rales Cardiovascular: Regular rate, Regular Rhythm, Normal S1, Normal S2, No murmurs Abdomen: Soft, Non Tender, Non-Distended, No Hepato-splenomegaly Extremities: No edema, Capillary Refill Less than 3 Seconds Skin: No rashes, No breakdown Musculoskeletal: No Tenderness to Palpation of Joints or Extremities Neurological: No focal neurological deficits, Motor Exam 5/5 strength throughout, Sensory exam intact to light touch and pain Psych/Mental Status: Normal Affect, Appropriate Weight / BMI Weight Weight: 179 lb 8 oz Body Mass Index (BMI) 30.8 ABG / Lab / Microbiology Data 03/21/25 05:31 03/21/25 05:31 Laboratory: Laboratory Results - last 24 hr 03/21/25 05:31: WBC 10.3, RBC 3.63 L, Hgb 11.5 L, Hct 34.5 L, MCV 95.0, MCH 31.7, MCHC 33.3, RDW Std Deviation 44.8 H, RDW Coeff of Gerda 13.0, Plt Count 237, MPV 10.5, Immature Gran % (Auto) 0.500, Neut % (Auto) 73.3 H, Lymph % (Auto) 14.3 L, [place] % (Auto) 10.4 H, Eos % (Auto) 1.2, Baso % (Auto) 0.3, Absolute Neuts (auto) 7.5, Absolute Lymphs (auto) 1.47, Nucleated RBC % 0, Sodium 138, Potassium 4.0, Chloride 107, Carbon Dioxide 19.5 L, Anion Gap 11, BUN 9, Creatinine 0.69 L, Estim Creat Clear Calc 60.79, Est GFR (MDRD) Non-Af 89, BUN/Creatinine Ratio 13.3, Glucose 98, Calcium 7.8 Microbiology: Microbiology 03/20/25 17:21 Stool Stool Lactoferrin - Final 03/20/25 17:21 Stool Enteric Bacteriology - Final 03/20/25 17:21 Stool Clostridioides difficile (PCR) - Final 03/20/25 17:21 Stool Stool Occult Blood (PHIL) - Final D/C Instructions Call your doctor if you observe: Fever of 101 or Higher, Shortness of breath, Dizziness, Fainting spells, Swelling in the ankles, Chest pain and Increased palpitations (irregular heartbeat) DC O2, CPAP, BIPAP Needs Home O2 Discharge instructions: No Meaningful Use Info Meaningful Use Meaningful Use Diagnoses (Choose all that apply): None applicable Discharge Plan Admission Admit Date/Time: 03/19/25 12:28 Attending Provider: Donnell Valencia Primary Care Provider: Raya An Consulting Providers: Zbigniew Bentley; Johnson Barrientos Instructions Patient Instructions: Diverticulitis Dc Discharge Orders/Prescriptions Prescriptions: New cefdinir 300 mg capsule 300 mg PO BID Qty: 14 0RF metronidazole 500 mg tablet 500 mg PO Q8H 7 Days Qty: 21 0RF Continued atenolol 25 mg tablet 12.5 mg PO DAILY arginine HCl (L-arginine) 1,000 mg tablet 1,000 mg PO BID Caltrate-D3 Plus Minerals 300 mg-800 unit -25 mg-0.5 mg tablet 1 tab PO DAILY ascorbic acid (vitamin C) 1,000 mg tablet 2 g PO DAILY trazodone 50 mg tablet 50 mg PO QHS PRN (Reason: sleep) zinc gluconate 50 mg tablet 50 mg PO QDAY losartan 25 mg tablet 25 mg PO DAILY Qty: 90 3RF levothyroxine 50 mcg Tablet 50 mcg PO DAILY PreserVision Lutein 226 mg-200 unit -5 mg-0.8 mg Capsule 1 cap PO BID sertraline [Zoloft] 50 mg Tablet 50 mg PO DAILY Centrum Silver Women 8 mg iron-400 mcg-300 mcg Tablet 1 tab PO DAILY exemestane 25 mg tablet 25 mg PO DAILY cholecalciferol (vitamin D3) 10 mcg (400 unit) capsule 10 mcg PO DAILY Referrals / Follow Up: Raya An, [Primary Care Provider] - Within 1 Week Disposition Disposition (needs filled in before D/C Order can be placed): Home, Self Care Charges/Coding Visit Charges Inpatient E&M: 94178 Disch Hosp >30min
== END 2025-03-21 15:07 | disposition home or self-care (01) | DRG 392 ==
LOC: ED 12:42 → MS3 13:00
PROVIDERS: Admitting Provider Internal Medicine; Emergency Provider Emergency Medicine; PCP Internal Medicine; Visit Provider Family Medicine
DX: K57.20 Diverticulitis of large intestine with perforation and abscess without bleeding (principal); C50.919 Malignant neoplasm of unspecified site of unspecified female breast; Z66 Do not resuscitate; E03.9 Hypothyroidism, unspecified; I10 Essential (primary) hypertension; F32.A Depression, unspecified; I08.3 Combined rheumatic disorders of mitral, aortic and tricuspid valves; F41.9 Anxiety disorder, unspecified; K80.20 Calculus of gallbladder without cholecystitis without obstruction; K52.89 Other specified noninfective gastroenteritis and colitis; R93.89 Abnormal findings on diagnostic imaging of other specified body structures; Z79.890 Hormone replacement therapy; Z79.899 Other long term (current) drug therapy
CPT/HCPCS: 36415; 74177; 76705; 76830; 76856; 80048; 80053; 80076; 82274; 83630; 83735; 84439; 84443; 85025; 87493; 87506; 94668; 99284; Q9967; A4216; J0696; J2405

== ENCOUNTER 2025-05-07 09:14 | Emergency (ER) | payer MEDICARE, OTHER, SELFPAY ==
[2025-05-07 09:14] VITALS: BP 133/89; PULSE 69; RESP 16; TEMP 36.6; O2SAT 100; BMI 29.7
--- NOTE | 2025-05-07 09:28 | CT_ITS ---
PROCEDURE: ABDOMEN/PELVIS W IV CONT ONLY 05/07/2025 REASON FOR EXAM: LEFT FLANK PAIN, HX DIVERTICULITIS TECHNIQUE: Procedure Code: [id number] Modality: CT Procedure: ABDOMEN/PELVIS W IV CONT ONLY Coronal and Sagittal reconstruction series were provided. CONTRAST: Isovue 370 VOLUME: 97 mL One or more dose reduction techniques were used (e.g., Automated exposure control, adjustment of the mA and/or kV according to patient size, use of iterative reconstruction technique. RADIATION DOSE SUMMARY: CTDlvol: 23+ 15 mGy DLP: 752 mGycm COMPARISON: 02/2025. FINDINGS: Abdominal Wall: Small bilateral fat-containing inguinal hernias. Spine: Degenerative changes with scoliosis. Vascular: Moderate atherosclerosis. Abdominal aorta normal in caliber. No suspicious lymphadenopathy. Liver: Unremarkable. Gallbladder/Biliary: Cholelithiasis without surrounding inflammatory changes. Pancreas/Spleen/Adrenals: Unremarkable. Kidneys/Ureters: Right renal simple cyst. No hydroureteronephrosis. Urinary Bladder: Bladder wall thickening, which may be related to underdistention, cystitis, or detrusor muscle hypertrophy. Bowel: Colonic diverticulosis. Adjacent to a descending colon diverticulum, there is minimal adjacent fat stranding, suspicious for acute uncomplicated diverticulitis. CT/Abdomen/Pelvis W IV Cont ONLY IMPRESSION: *Minimal fat stranding adjacent to a descending colon diverticulum, suspicious for acute uncomplicated diverticulitis. *Cholelithiasis without evidence of acute cholecystitis. *Bladder wall thickening, which may reflect underdistention, cystitis, or detru sor hypertrophy. Correlate clinically. *Small bilateral fat-containing inguinal hernias. Reading Location: [id number]
--- NOTE | 2025-05-07 09:28 | ED.VIS.BACK ---
HPI History of Present Illness Chief Complaint: Flank Pain Informant: patient Narrative Narrative: Patient woke up with pain in her left low back/flank this morning for the several hours, she states she did not injure this area, it does hurt more to move, and she states it may be musculoskeletal but she is more concerned that this is pain related to diverticulitis that she had in the past couple months for the first time and it felt similar. She denies any abdominal pain, nausea, vomiting, fevers, diarrhea or blood or blood per rectum. Prior similar symptoms: Yes PFSH PFSH Medical History Pancreatitis GERD (gastroesophageal reflux disease) Hypothyroidism Non-rheumatic mitral regurgitation Nonrheumatic aortic (valve) insufficiency Abnormal echocardiogram Essential hypertension Sarcoidosis Depression Alcohol use History of echocardiogram Cancer Skin lesions Wears glasses Anxiety Arthritis Migraine headache Non-smoker Chronic cough History of stress test Sinusitis Thyroid disease Hypertension Home Medications ?Medication ?Instructions ?Recorded ?Last Taken ?Type atenolol 25 mg tablet 12.5 mg PO DAILY 10/10/17 03/18/25 History levothyroxine 50 mcg tablet 50 mcg PO DAILY 07/17/21 03/18/25 History vit C 226 mg-vit E 90 mg-copper 1 cap PO BID 07/17/21 03/18/25 History 0.8 mg-zinc oxide-lutein 5 mg capsule (PreserVision Lutein) [id number] 8 mg-folic 400 1 tab PO DAILY 09/22/22 03/18/25 History mcg-K 50 mcg-lutein 300 mcg tablet (Centrum Silver Women) sertraline 50 mg tablet (Zoloft) 50 mg PO DAILY 09/22/22 03/18/25 History calcium 300 mg-D3 20 mcg-magnesium 1 tab PO DAILY 01/14/23 Unknown History 25 mg-coppr 0.5 [id number] tablet (Caltrate-D3 Plus Minerals) ascorbic acid (vitamin C) 1,000 mg 2 g PO DAILY 02/11/23 Unknown History tablet arginine HCl (L-arginine) 1,000 mg 1,000 mg PO BID 09/01/23 03/18/25 History tablet losartan 25 mg tablet 25 mg PO DAILY #90 TABLETS 11/17/24 03/18/25 Rx trazodone 50 mg tablet 50 mg PO QHS PRN sleep 11/17/24 03/18/25 History zinc gluconate 50 mg tablet 50 mg PO QDAY 11/17/24 03/18/25 History cholecalciferol (vitamin D3) 10 10 mcg PO DAILY 03/19/25 03/18/25 History mcg (400 unit) capsule exemestane 25 mg tablet 25 mg PO DAILY 03/19/25 03/18/25 History cefdinir 300 mg capsule 300 mg PO BID #14 caps 03/21/25 Unknown Rx metronidazole 500 mg tablet 500 mg PO Q8H 7 days #21 tabs 03/21/25 Unknown Rx cefdinir 300 mg capsule 300 mg PO Q12H #20 caps 05/07/25 Unknown Rx Allergy/AdvReac Type Severity Reaction Status Date / Time Penicillins Allergy Severe Rash Verified 05/07/25 09:14 levofloxacin Allergy Other Verified 05/07/25 09:14 erythromycin base AdvReac Upset Verified 05/07/25 09:14 Stomach Family History Mother Cancer bladder Father Myocardial infarction Hypertension Cancer Prostate Surgical History Status post total right knee replacement Hx of total knee replacement Status post total left knee replacement S/P skin and subcutaneous tissue surgery S/P foot surgery Social History housing: house Smoking Status: Never smoker alcohol intake: never substance use type: does not use caffeine: Yes additional social history: - Sandeep ROS ROS ED Constitutional Constitutional ED: Denies chills or fever(s) Eyes Eyes: Denies change in vision or diplopia ENT ENT ED: Denies rhinorrhea or sore throat Cardiovascular Cardiovascular: Denies chest pain or palpitations Respiratory/Chest Respiratory/Chest: Denies cough or dyspnea Gastrointestinal Gastrointestinal: Denies abdominal pain, diarrhea, nausea or vomiting Genitourinary Genitourinary ED: Reports flank pain; Denies dysuria or hematuria Musculoskeletal Musculoskeletal: Reports back pain; Denies neck pain Integumentary Denies abscess or rash Neurologic Neurologic: Denies headache(s), paresthesias or weakness Psychiatric Psychiatric: Denies anxiety or suicidal thoughts EXAM Physical Exam Const Vital Signs: 05/07/25 09:14 Temperature 97.8 F Temperature Source Oral Pulse Rate 69 Respiratory Rate 16 Blood Pressure 133/89 H Blood Pressure Mean 103 Pulse Ox 100 Oxygen Delivery Method Room Air Positive well nourished and well developed General Appearance ED: well developed and NAD HEENT Reports moist mucous membranes normocephalic and atraumatic Eyes PERRL and EOMs intact bilaterally Neck full ROM and supple Resp normal respiratory effort and clear to auscultation bilaterally Cardio regular rate, regular rhythm and no murmurs GI non-tender and non-distended Auscultation: normoactive bowel sounds Palpation: soft Back/Spine no CVA tenderness Back/Spine Narrative: Tenderness in the left posterolateral ribs/costal margin, without paraspinal or spinal tenderness posteriorly. Normal skin no rash. No crepitance. No step-off. General Back: other FROM, but winces in pain with movement Extremity normal to inspection General Extremety ED: Negative for edema, pulses abnormal or tenderness General Extremity: Negative for edema or pulses abnormal Neuro oriented x3, CN's II-XII intact bilaterally and no sensory deficits noted Sensorium / Orientation: awake and alert Motor Exam: strength 5/5 throughout Psych mental status grossly normal Skin no rashes or lesions noted and no wounds MDM MDM MDM Narrative Medical decision making narrative: Based on my exam, this is very consistent with musculoskeletal pain in her left low back and flank/ribs. However, patient still amenable to getting workup to evaluate for possible diverticulitis. Her labs are normal she has no leukocytosis or bandemia, I reviewed the CT results as well as the images, I agree with the results, there is a small amount of inflammation in the area adjacent to descending colon diverticulum, which may represent early uncomplicated diverticulitis. I certainly do not think this is necessarily causing the patient's pain that seems very musculoskeletal. Given this, I am recommending clear fluids for the next 48 hours, giving a [id number] prescription for cefdinir given her prior reactions to both penicillin and Levaquin, and advising her to follow-up with her doctor. She is comfortable with that plan we gave her a dose of Toradol 10 mg prior to discharge for her discomfort. She declines prescription for any other analgesics. I did review her prior visit, she had more significant diverticulitis along with a borderline phlegmon for which she was admitted to the hospital for IV antibiotics, she did not require any surgical radiological intervention. Lab Data Attestation: I reviewed the patient's lab results. Labs: Laboratory Results - last 24 hr 05/07/25 09:55 WBC 7.3 RBC 4.42 Hgb 14.1 Hct 41.6 MCV 94.1 MCH 31.9 MCHC 33.9 RDW Std Deviation 46.1 H RDW Coeff of Gerda 13.2 Plt Count 265 MPV 10.1 Immature Gran % (Auto) 0.800 Neut % (Auto) 74.5 H Lymph % (Auto) 13.9 L [place] % (Auto) 8.4 Eos % (Auto) 1.7 Baso % (Auto) 0.7 Absolute Neuts (auto) 5.4 Absolute Lymphs (auto) 1.01 Nucleated RBC % 0 Sodium 139 Potassium 4.0 Chloride 102 Carbon Dioxide 24.4 Anion Gap 12 BUN 17 Creatinine 0.89 Estim Creat Clear Calc 53.67 Est GFR (MDRD) Non-Af 67 BUN/Creatinine Ratio 19.4 Glucose 107 H Calcium 9.4 Radiography Diagnostic Testing: Clinical Impression(s) from Imaging Studies Abdomen/Pelvis CT 05/07/25 09:28 IMPRESSION: *Minimal fat stranding adjacent to a descending colon diverticulum, suspicious for acute uncomplicated diverticulitis. *Cholelithiasis without evidence of acute cholecystitis. *Bladder wall thickening, which may reflect underdistention, cystitis, or detrusor hypertrophy. Correlate clinically. *Small bilateral fat-containing inguinal hernias. Reading Location: [address] Discharge Plan Triage Chief Complaint: Flank Pain ED Provider: Rush Childs Dx/Rx/DC Orders Clinical Impression: Musculoskeletal back pain, Diverticulitis of descending colon Instructions: Diverticulosis and Diverticulitis, ED Clear Liquid Diet Prescriptions: New cefdinir 300 mg capsule 300 mg PO Q12H Qty: 20 0RF No Action atenolol 25 mg tablet 12.5 mg PO DAILY arginine HCl (L-arginine) 1,000 mg tablet 1,000 mg PO BID Caltrate-D3 Plus Minerals 300 mg-800 unit -25 mg-0.5 mg tablet 1 tab PO DAILY ascorbic acid (vitamin C) 1,000 mg tablet 2 g PO DAILY trazodone 50 mg tablet 50 mg PO QHS PRN (Reason: sleep) zinc gluconate 50 mg tablet 50 mg PO QDAY losartan 25 mg tablet 25 mg PO DAILY Qty: 90 3RF levothyroxine 50 mcg Tablet 50 mcg PO DAILY PreserVision Lutein 226 mg-200 unit -5 mg-0.8 mg Capsule 1 cap PO BID sertraline [Zoloft] 50 mg Tablet 50 mg PO DAILY Centrum Silver Women 8 mg iron-400 mcg-300 mcg Tablet 1 tab PO DAILY exemestane 25 mg tablet 25 mg PO DAILY cholecalciferol (vitamin D3) 10 mcg (400 unit) capsule 10 mcg PO DAILY cefdinir 300 mg capsule 300 mg PO BID Qty: 14 0RF metronidazole 500 mg tablet 500 mg PO Q8H 7 Days Qty: 21 0RF Primary Care Provider: Raya An Referrals: Raya An, [Primary Care Provider] - As soon as possible Activity Restrictions/Additional Instructions: Clear liquid diet for the next 48 hours unless you are getting worse, or developing abdominal pain. At that point you may fill and take the antibiotic as prescribed. If you are in severe pain or developing fever/chills, return to the ER. Otherwise follow-up with your doctor soon as you are able. Print Language: Tajik Disposition Disposition: Home, Self Care
[2025-05-07 10:00] LABS: Hematocrit 41.6 % (37-47); Hemoglobin 14.1 g/dL (12.0-15.0); Immature Granulocytes Count 0.060 X10^3/uL (0.0-0.0); Mean Corp Hgb Conc 33.9 g/dL (32-36); Mean Corpuscular Volume 94.1 fL (81-99); Mean Platelet Vol. 10.1 fl (6.2-12.0); NRBC Flagged by Analyzer 0 % (0-5); Platelet Count 265 K/mm3 (150-450); RBC Distribution Width CV 13.2 % (11.6-14.6); RBC Distribution Width SD 46.1 fl (35.1-43.9); Red Blood Count 4.42 M/mm3 (4.2-5.4); White Blood Count 7.3 K/mm3 (4.4-11.0)
[2025-05-07 10:28] LABS: Anion Gap 12 (5-15); BUN 17 mg/dL (4-19); BUN/Creat Ratio 19.4 RATIO (10-20); Calcium,Total 9.4 mg/dL (7.6-11.0); Carbon Dioxide 24.4 mmol/L (21.0-32.0); Chloride 102 mmol/L (98-108); Estimated Creatinine Clearance 53.67 ml/min (50-250); Glucose 107 mg/dL (70-99); Potassium 4.0 mmol/L (3.3-5.1)
[2025-05-07 11:14] VITALS: BP 128/89; PULSE 90; RESP 19; O2SAT 98
[2025-05-07 11:31] VITALS: BP 165/69; PULSE 50
[2025-05-07 11:36] VITALS: BP 150/89; PULSE 52; RESP 17; TEMP 36.8; O2SAT 99
== END 2025-05-07 11:37 | disposition home or self-care (01) ==
PROVIDERS: Emergency Provider Emergency Medicine; PCP Internal Medicine; Visit Provider Emergency Medicine
DX: M54.9 Dorsalgia, unspecified (principal); K57.32 Diverticulitis of large intestine without perforation or abscess without bleeding; I10 Essential (primary) hypertension; E03.9 Hypothyroidism, unspecified; Z79.890 Hormone replacement therapy; Z79.899 Other long term (current) drug therapy
CPT/HCPCS: 74177; 80048; 85025; 96374; 99284; Q9967; A4216

== ENCOUNTER 2025-06-06 09:30 | Outpatient (RCR) | payer MEDICARE, OTHER, SELFPAY ==
--- NOTE | 2025-05-08 10:23 | HP.PTEVAL_ITS ---
Patient's Visit Information Visit Information Visit Information: NINA GORDON is a 75 year old F referred to Physical Therapy by Dr. Raya An DO with a diagnosis of Low back pain. Date of Evaluation: 05/08/25 Physical Therapist: Raj Glez DPT Visit Plan Frequency: 2x /Week Duration: 4 Weeks Plan: 1) Neutral spine core strengthening and gym exercises. 2) lumbar ROM, both flexion and extension ROM. Pt. hoping to become I quickly with HEP add in gym and mat exercises from the start. I gave her REIL and SKTC today at [facility]. I did add US to the POC, only if painful coming in. If pain remains low progress with strengthening and ROM. Subjective Subjective: Pt. is here today for her initial evaluation with diagnosis of low back pain. Pt. was at the ER yesterday. Physician thought it was more musculoskeletal in nature. Pt. reports having pain on and off for a few years, but just recently had a flare up. Pt. reports pain is mostly on the L side of her lumbar spine. They were trying to rule out diverticulitis as well. Pt. reports having less pain today. Pt. is hopeful to reduce symptoms in order to get back to all recreational activities without limitations. Pain Lumbar spine: Pain Intensity (Out of 10): 2 Pain Intensity Range: 0 and 7 Objective Objective: POSTURE: Pt. has slight flexed posture in stance, but not severe. PALPATION: Pt. reports no tenderness to palpation of L flank or spine, but reports that actually feels kind of good. NEURO: Pt. has normal sensation in BLEs. normal DTR. ROM: LUMBAR SPINE: Flexion min loss mild increase NW, ext min loss increase NW, SB R min loss mild stretch on L side. SB L mod loss increase NW on L side. MMT: Pt. has good strength throughout BLEs, core strength, poor+. GAIT: PT. has normal gait pattern without increase in symptoms. Special Tests L/S Slump test left side: Negative L/S Slump test right side: Negative L/S Left Straight Leg Raise: Negative L/S Right Straight Leg Raise: Negative Lumbar Standing: Flexion - Mechanical Response: No effect Lumbar Standing: Flexion - Symptoms During Testing: Increases Lumbar Standing: Flexion - Symptoms After Testing: No worse Balance/Special Test Scores Oswestry Low Back Score: 3 Goals Goal 1:: LTG: Pt. to have full lumbar ROM without increase in L flank pain allowing for increased tolerance to all ADLs. Goal Time Frame: 4-6 Weeks Goal 2:: LTG: Pt. to have increased core strength to fair+ in order to increase stability to spine allowing for increase tolerance to all lifting and IADLs without pain. Goal Time Frame: 4-6 Weeks Goal 3:: LTG: Pt. to sleep throughout the night without increase in lumbar spine pain allowing for increased quality of life. Goal Time Frame: 4-6 Weeks Rehabilitation Potential Physical Therapy Diagnosis: Pt. has signs and symptoms consistent with low back pain. Pt. has marked lumbar hypomobility and core weakness. She would benefit from PT to address the above limitations progressing back to all recreational activities without limitations. Rehabilitation Potential: Excellent Anticipated Interventions Patient/Client Instruction: Educate patient on: Condition, Plan of Care, Risk Factors and Benefits of Fitness Program For the Purpose of:: To facilitate caregiver knowledge, To improve self management, To prevent re-injury, To improve ability to perform tasks related to life management and To improve tolerance to ADL's Therapeutic Exercise to Include: Strength training, Power training, Passive ROM, Active ROM, Dynamic Lumbar Stabilization and Mirian Exercises For the Purpose of:: To decrease pain, To increase ROM, To improve nutrient delivery to tissue, To increase oxygenation perfusion, To improve muscle performance and motor function and To improve ability to perform ADL's Ultrasound (thermal/non thermal): Yes For the Purpose of:: To decrease pain, To decrease swelling/inflammation and To increase ROM Text: Thank you for the opportunity to evaluate your patient. For Medicare and Medicare HMO plans, please review the plan of care and approve it. It will need to be FAXED BACK to us at [phone] for Medicare purposes. For Medicare only, by signing this I certify the plan of care. Please let me know if there are questions or concerns regarding this plan of care. Physician Signatu re: Date:
--- NOTE | 2025-06-06 09:57 | HP.PTDCSUM_ITS ---
Discharge Summary D/C summary: It has been my pleasure to treat NINA GORDON referred by Dr. Raya An DO, with the diagnosis of Low back pain for a total of 5 visit(s). Discharge Date: 06/06/25 Please see the following information for a summary of their discharge status. Subjective Subjective: Pt. reports overall doing much better. Basically no pain today. Pt. reports beuing 85% better overall. Pain Lumbar spine: Pain Intensity (Out of 10): 0 Overall Improvement % Improvement: 85 Objective Objective/Function: Pt. reports overall doing much better. Pt. reports minimal to no pain today. Pt. will be DC to HEP at this point in time. I want her to continue with strengthening and her HEP. Goals Goal 1:: LTG: Pt. to have full lumbar ROM without increase in L flank pain allowing for increased tolerance to all ADLs. Goal Progress: Goal Met Goal 2:: LTG: Pt. to have increased core strength to fair+ in order to increase stability to spine allowing for increase tolerance to all lifting and IADLs with out pain. Goal Progress: Goal Met Goal 3:: LTG: Pt. to sleep throughout the night without increase in lumbar spine pain allowing for increased quality of life. Goal Progress: Goal Met Plan Plan: DC from PT at this point in time. D/C Information d/c sentence: If there are questions or concerns regarding this patient's physical therapy, please feel free to call me at [phone]. Thank you for the referral of this patient. Sincerely, Raj Beal Sipos, DPT Balance/Gait/Functional tests Balance/Special Test Scores Oswestry Low Back Score: 2 Improvement % Improvement: 85
== END 2025-06-06 10:07 | disposition home or self-care (01) ==
LOC: PT 09:30
PROVIDERS: PCP Internal Medicine; Referring Provider Internal Medicine; Visit Provider Internal Medicine
DX: M54.50 Low back pain, unspecified (principal)
CPT/HCPCS: 97110; 97161; 97530

== ENCOUNTER → 2025-07-18 | Outpatient (CLI) | payer MEDICARE, OTHER, SELFPAY ==
[2025-07-18 13:31] LABS: AST(SGOT) 18 U/L (<=31); Alanine Aminotransfer ALT/SGPT 13 U/L (<=34); Albumin, Serum 4.1 g/dL (3.4-4.8); Alkaline Phosphatase 97 U/L (35-104); Anion Gap 10 (5-15); BUN 26 mg/dL (4-19); BUN/Creat Ratio 25.8 RATIO (10-20); Calcium,Total 9.5 mg/dL (7.6-11.0); Carbon Dioxide 26.8 mmol/L (21.0-32.0); Chloride 102 mmol/L (98-108); Cholesterol 198 mg/dL (<=200); Globulin 2.9 g/dL (2.2-4.2); Glucose 95 mg/dL (70-99); Low Density Lipoprotein Calc. 119 mg/dL; Potassium 4.7 mmol/L (3.3-5.1); Triglycerides 84 mg/dL; Very Low Density Lipoprotein 17 mg/dL (5-40); cholesterol:hdl ratio screen 3.08
== END | disposition home or self-care (01) ==
LOC: CIMLAB 09:25
PROVIDERS: PCP Internal Medicine; Referring Provider Internal Medicine; Visit Provider Internal Medicine
DX: E03.9 Hypothyroidism, unspecified (principal); E78.5 Hyperlipidemia, unspecified; R73.09 Other abnormal glucose
CPT/HCPCS: 36415; 80053; 80061; 83036; 84443

== ENCOUNTER → 2025-08-21 | Outpatient (CLI) | payer MEDICARE, OTHER, SELFPAY | END | disposition home or self-care (01) | LOC: PSN 08:16 | PROVIDERS: PCP Internal Medicine; Referring Provider Internal Medicine; Visit Provider Internal Medicine | DX: R00.2 Palpitations (principal) | CPT/HCPCS: 93225; 93226 ==

== ENCOUNTER → 2025-08-23 | Outpatient (CLI) | payer MEDICARE, OTHER, SELFPAY ==
--- NOTE | 2025-08-23 08:49 | US_ITS ---
PROCEDURE: GALLBLADDER 08/23/2025 REASON FOR EXAM: GB CBD TECHNIQUE: Procedure Code: USGB Modality: US Procedure: GALLBLADDER COMPARISON: none FINDINGS: GALLBLADDER: 9 mm gallstones. no gallbladder wall thickening or pericholecystic fluid. Negative Rivera sign. COMMON BILE DUCT: Measures 8 mm. No intrahepatic biliary dilatation. LIVER: Normal size. Normal echotexture. No definite hepatic mass. RIGHT KIDNEY: Normal in size and echogenicity. No mass. No urinary stones. No hydronephrosis. Pancreas: Within normal limits US/Gallbladder IMPRESSION: Cholelithiasis without acute cholecystitis. Reading Location: [facility]
== END | disposition home or self-care (01) ==
LOC: OPUS 08:47
PROVIDERS: PCP Internal Medicine; Referring Provider Internal Medicine Gastroenterology; Visit Provider Internal Medicine Gastroenterology
DX: K80.20 Calculus of gallbladder without cholecystitis without obstruction (principal)
CPT/HCPCS: 76705